=== PATIENT | female | born 1950 | race Caucasian/White ===

== ENCOUNTER → 2020-04-10 15:02 | Outpatient (CLI) | payer MEDICARE, SELFPAY ==
--- NOTE | 2020-04-10 15:10 | VDLE_ITS ---
Reason For Study: pain Procedure LEFT This is a venous duplex using B-mode, color GSV is normal. flow and spectral Doppler. CFV is compressible, spontaneous, phasic, Exam performed in department. competent, and demonstrates normal The exam was abbreviated due to the COVID 19 augmentation. protocol. FV is compressible, spontaneous, phasic, The exam was diagnostic. competent and demonstrates normal A preliminary report was called and/or faxed augmentation. to [facility] clinical desk. POP V is compressible, spontaneous, phasic, competent and demonstrates normal augmentation. T/P Trunk is compressible. PTV is compressible. LT PerV is compressible. Interpretation Summary Deep veins of the left lower extremity are patent and compressible segmentally. There is no evidence of left lower extremity deep vein thrombosis. Valvular competence appears intact within the proximal deep venous system on the left . The left great saphenous vein appears patent and compressible segmentally. Ordering Physician: Thao Warren Performed By: Gagandeep Henson RVRandi
== END ==
PROVIDERS: PCP Family Medicine Geriatric Medicine; Referring Provider Registered Nurse; Visit Provider Registered Nurse
DX: M79.662 Pain in left lower leg (principal)
CPT/HCPCS: 93971

== ENCOUNTER → 2020-10-17 15:02 | Outpatient (CLI) | payer MEDICARE, SELFPAY ==
[2013-12-22 12:25] VITALS: BMI 22.8
[2020-10-17 16:53] LABS: Absolute Lymphocyte Count 1.91 X10^3/uL (0.83-4.51); Absolute Neutrophil Count 3.5 X10^3/uL (2.0-7.7); Basophil# 0.03 X10^3/uL; Basophil% 0.5 % (0-1); Eosinophil# 0.11 X10^3/uL; Eosinophils% 1.8 % (0-5); Hematocrit 37.8 % (37-47); Hemoglobin 12.2 g/dL (12.0-15.0); Lymphocyte # 1.91 X10^3/ul (0.83-4.51); Lymphocyte % 31.6 % (19-41); Mean Corp Hgb Conc 32.3 g/dL (32-36); Mean Corpuscular Hgb 29.8 pg (27.0-32.0); Mean Corpuscular Volume 92.2 fL (81-99); Monocyte# 0.46 X10^3/uL; Monocyte% 7.6 % (0-10); NRBC Flagged by Analyzer 0 % (0-5); Neutrophil # 3.52 X10^3/uL (2.7-7.7); Neutrophil % 58.3 % (47-70); Platelet Count 321 K/mm3 (150-450); RBC Distribution Width CV 12.4 % (11.6-14.6); RBC Distribution Width SD 41.8 fl (35.1-43.9)
[2020-10-17 17:26] LABS: ALB/GLOB Ratio 1.3 RATIO (0.9-2.4); AST(SGOT) 27 U/L (15-37); Alanine Aminotransfer ALT/SGPT 31 U/L (13-56); Albumin, Serum 3.8 g/dL (3.2-5.0); Alkaline Phosphatase 60 U/L (45-117); Anion Gap 5 (5-15); BUN 18 mg/dL (7-18); BUN/Creat Ratio 22.9 RATIO (10-20); Calcium,Total 9.4 mg/dL (8.5-10.1); Chloride 104 mmol/L (98-107); Cholesterol 196 mg/dL (200); Creatinine, Serum 0.78 mg/dL (0.55-1.02); EST Glomerular Filtration Rate 77 mL/min (>60); Est Glom Filt Rate - Afr Amer 93 mL/min (>60); Globulin 2.9 g/dL (2.2-4.2); Glucose 89 mg/dL (74-106); High Density Lipoprotein 92 mg/dL; Potassium 4.1 mmol/L (3.5-5.1); Protein, Total 6.7 g/dL (6.4-8.2); Sodium Level 141 mmol/L (136-145); Thyroid Stim Hormone (TSH) 1.52 uIU/mL (0.358-3.74); Triglycerides 89 mg/dL; Very Low Density Lipoprotein 18 mg/dL (5-40)
[2020-10-18 09:24] LABS: Hepatitis C Antibody Non-Reactive (Nonreactive); Vitamin D,25 Hydroxy 47.1 ng/mL
== END ==
PROVIDERS: PCP Family Medicine Geriatric Medicine; Visit Provider Family Medicine Geriatric Medicine
DX: E55.9 Vitamin D deficiency, unspecified (principal); E78.5 Hyperlipidemia, unspecified; R53.83 Other fatigue; Z13.89 Encounter for screening for other disorder
CPT/HCPCS: 36415; 80053; 80061; 82306; 84443; 85025; 86803

== ENCOUNTER → 2020-10-25 14:54 | Outpatient (CLI) | payer MEDICARE, SELFPAY ==
--- NOTE | 2020-10-25 14:59 | BD_ITS ---
STUDY: DUAL ENERGY X-RAY ABSORPTIOMETRY / DXA REASON FOR EXAM: Female, 70 years old. Z780. The patient is postmenopausal. Loss of height. TECHNIQUE: Bone Mineral Density (BMD) measurements of lumbar spine and bilateral hips were obtained. COMPARISON: None. FINDINGS: Lumbar Spine (L1-L4): g/cm2 (1.069) / T-score (-0.8) / Z-score (0.9) Findings are suggestive of normal bone density with a low fracture risk. Left Femur Total: g/cm2 (0.780) / T-score (-1.8) / Z-score (-0.2) Left Femoral Neck: g/cm2 (0.857) / T-score (-1.3) / Z-score (0.5) Right Femur Total: g/cm2 (0.780) / T-score (-1.8) / Z-score (-0.2) Right Femoral Neck: g/cm2 (0.775) / T-score (-1.9) / Z-score (-0.1) BD/Dexa Bone Density Study IMPRESSION: The patient is considered osteopenic as outlined below according to World [employer] Organization (WHO) criteria with a moderate fracture risk. Reference Information: The T-score is the number of standard deviations above or below the standard which is normal for young adults at their peak bone mineral density. The World Health Organization (WHO) interprets the T-scores as follows: Above -1 Normal bone density Between -1 and -2.5 Osteopenia Equal to / or below -2.5 Osteoporosis As a practical clinical guideline, osteopenia may be graded as follows: Mild -1 through -1.5 Moderate -1.6 through -2.0 Severe -2.1 through -2.4 The Z-score is the number of standard deviations above or below age-matched controls. A Z-score of less than -1.5 would be considered abnormal. References: 1. NIH Osteoporosis and Related Bone Diseases www osteo.org 2. International Society for Clinical Densitometry www iscd.org 3. National Osteoporosis Foundation www nof.org Electronically Signed: Sukumar Bartlett MD at 15:40 EDT , Service support ,
== END ==
PROVIDERS: PCP Family Medicine Geriatric Medicine; Referring Provider Family Medicine Geriatric Medicine; Visit Provider Family Medicine Geriatric Medicine
DX: Z78.0 Asymptomatic menopausal state (principal)
CPT/HCPCS: 77080

== ENCOUNTER → 2020-11-30 13:02 | Outpatient (CLI) | payer MEDICARE, SELFPAY ==
--- NOTE | 2020-11-30 13:07 | CT_ITS ---
STUDY: CT BRAIN WITHOUT CONTRAST REASON FOR EXAM: Female, 70 years old. Possibly hematoma overlying the left forehead. RADIATION DOSAGE (If Supplied By Facility): CTDIvol = ( 44.99 ) mGy, DLP = ( 796.11 ) mGycm TECHNIQUE: Transaxial CT imaging of the brain was performed without administration of intravenous contrast material. Individualized dose optimization techniques were used for this CT. COMPARISON: No relevant priors. FINDINGS: Normal soft tissue structures. 3.6 mm focal rounded bony thickening along the medial aspect of the left frontal bone. This may represent a small osteoma. Normal size ventricles and extra-axial spaces for the patient''s age. Normal white matter tracts of the cerebral hemispheres. Normal basal ganglia and thalami. Normal brainstem. Normal cerebellum. There is no intracranial hemorrhage. There are no findings of an acute ischemic infarction. Normal visualized paranasal sinuses. CT/Brain/Head without Contrast IMPRESSION: 3.6 mm focal rounded bony thickening along the medial aspect of the left frontal bone. This most likely represents a small osteoma. Electronically Signed: Sukumar Bartlett MD at 13:25 EDT , Service support ,
== END ==
PROVIDERS: PCP Family Medicine Geriatric Medicine; Referring Provider Family Medicine Geriatric Medicine; Visit Provider Family Medicine Geriatric Medicine
DX: T14.8XXA Other injury of unspecified body region, initial encounter (principal)
CPT/HCPCS: 70450

== ENCOUNTER → 2021-01-07 13:06 | Outpatient (CLI) | payer MEDICARE, SELFPAY ==
--- NOTE | 2021-01-07 13:07 | ART_ITS ---
Reason For Study: CLAUDICATION Procedure A bilateral lower extremity continuous wave Doppler with analog waveform analysis and ankle brachial indexes. Left Segmental Pressures Left brachial= 107mmHg. Left posterior tibial artery = 153mmHg. Left dorsalis pedis artery = 143mmHg. Left digit = 106 mmHg. The left dorsalis pedis waveforms are triphasic. The left posterior tibial artery waveforms are triphasic. Right Segmental Pressures Right brachial= 113mmHg. Right posterior tibial artery = 137mmHg. Right dorsalis pedis artery = 133mmHg. Right digit = 89 mmHg. The right dorsalis pedis waveforms are triphasic. The right posterior tibial artery waveforms are triphasic. Indices The right ankle brachial index by the posterior tibial artery is 1.21. The right ankle brachial index by the dorsalis pedis is 1.18. The right digital-brachial index is .79. The left ankle brachial index by the posterior tibial artery is 1.35. The left ankle brachial index by the dorsalis pedis is 1.27. The left digital-brachial index is .94. VL/Ankle Brachial Index Interpretation Summary Triphasic Doppler waveforms are noted at ankle level bilaterally. Pulse-volume recordings appear satisfactory at digital level bilaterally. Resting ankle-brachial indices are n ormal bilaterally. Digital-brachial indices are normal bilaterally. There is no evidence of significant arterial occlusive disease in the lower ext remities bilaterally. Ordering Physician: Geovanni Foreman Referring Physician: Geovanni Foreman Chi Performed By: YULIANA CABAN RDCS
== END ==
PROVIDERS: PCP Family Medicine Geriatric Medicine; Referring Provider Family Medicine Geriatric Medicine; Visit Provider Family Medicine Geriatric Medicine
DX: I73.9 Peripheral vascular disease, unspecified (principal)
CPT/HCPCS: 93922

== ENCOUNTER → 2021-02-01 09:44 | Outpatient (CLI) | payer MEDICARE, SELFPAY ==
[2021-02-01 11:54] LABS: Absolute Lymphocyte Count 1.79 X10^3/uL (0.83-4.51); Absolute Neutrophil Count 4.6 X10^3/uL (2.0-7.7); Basophil# 0.05 X10^3/uL; Basophil% 0.7 % (0-1); Eosinophil# 0.19 X10^3/uL; Eosinophils% 2.6 % (0-5); Hematocrit 37.4 % (37-47); Lymphocyte # 1.79 X10^3/ul (0.83-4.51); Lymphocyte % 24.8 % (19-41); Mean Corp Hgb Conc 32.1 g/dL (32-36); Mean Corpuscular Hgb 29.7 pg (27.0-32.0); Mean Corpuscular Volume 92.6 fL (81-99); Mean Platelet Vol. 10.8 fl (6.2-12.0); Monocyte# 0.53 X10^3/uL; Monocyte% 7.3 % (0-10); NRBC Flagged by Analyzer 0 % (0-5); Neutrophil # 4.64 X10^3/uL (2.7-7.7); Neutrophil % 64.2 % (47-70); Platelet Count 292 K/mm3 (150-450); RBC Distribution Width CV 13.1 % (11.6-14.6); RBC Distribution Width SD 44.6 fl (35.1-43.9); Red Blood Count 4.04 M/mm3 (4.2-5.4); White Blood Count 7.2 K/mm3 (4.4-11.0)
[2021-02-01 12:10] LABS: Vitamin D,25 Hydroxy 40.8 ng/mL
[2021-02-01 12:17] LABS: AST(SGOT) 16 U/L (15-37); Alanine Aminotransfer ALT/SGPT 23 U/L (13-56); Albumin, Serum 3.5 g/dL (3.2-5.0); Alkaline Phosphatase 65 U/L (45-117); Anion Gap 1 (5-15); BUN 14 mg/dL (7-18); BUN/Creat Ratio 18.2 RATIO (10-20); Calcium,Total 9.3 mg/dL (8.5-10.1); Chloride 107 mmol/L (98-107); Cholesterol 229 mg/dL (200); Creatinine, Serum 0.77 mg/dL (0.55-1.02); EST Glomerular Filtration Rate 78 mL/min (>60); Est Glom Filt Rate - Afr Amer 95 mL/min (>60); Globulin 3.5 g/dL (2.2-4.2); Glucose 90 mg/dL (74-106); High Density Lipoprotein 82 mg/dL; Sodium Level 139 mmol/L (136-145); Thyroid Stim Hormone (TSH) 1.29 uIU/mL (0.358-3.74); Triglycerides 97 mg/dL; Very Low Density Lipoprotein 19 mg/dL (5-40)
== END ==
PROVIDERS: PCP Family Medicine Geriatric Medicine; Visit Provider Family Medicine Geriatric Medicine
DX: E78.5 Hyperlipidemia, unspecified (principal); E55.9 Vitamin D deficiency, unspecified; R53.83 Other fatigue
CPT/HCPCS: 36415; 80053; 80061; 82306; 84443; 85025

== ENCOUNTER 2021-03-22 10:00 | Outpatient (RCR) | payer MEDICARE, SELFPAY ==
--- NOTE | 2021-03-18 10:43 | HP.PTEVAL ---
Patient's Visit Information TARIK DUNHAM is a 71 year old F referred to Physical Therapy by Dr. Henri Amaya DO with a diagnosis of low back pain, pain in R hip. Date of Evaluation: 03/18/21 Physical Therapist: Lucille Jang - Visit Plan Frequency: 2x /Week Duration: 5 wks Plan: Begin core and LE strengthening/stretching program with exercise progression as tolerated. Pt would benefit from skilled physical therapy to monitor ther ex program and modify/advance as needed for optimal results. Therapy may include ther ex, ther act, gait training, and manual therapy. - Subjective Pt had pain behind R knee for about one month; had imaging done and knees are not the issues; was told her back is causing her pain. Pt has DDD (diagnosed several years ago), has started taking Celebrex and feels a bit better. Pt enjoys walking, but reports that her legs just feel weak and unstable. Reports that when she is walking, she will sometimes hold on to her or something nearby because she just feels off balance. She reports that she needs to get both hips replaced, but she is not quite ready for that. Her left hip is worse. Has numbness from knee to foot on R ever since a foot surgery 1.5 years ago. Reports that she gets leg cramps on both sides that wake her up at night or when she has her legs up relaxing. Pt feels like she has no strength in her legs when she is navigating stairs or trying to get up from a squat. Uses the rail and goes slowly using her stairs at home (both to second floor and to basement). With the numbness in the foot, she is very conscience of trying to be careful not to fall. Pt would like to increase her physical activity and feels limited by weakness in the legs. PAIN: at best 0/10. at worst: 8/10 when not taking Celebrex. Pt denies N&T down the legs but does have pain down the back of the legs occasionally. - Pain Back/R leg Pain Intensity (Out of 10): 0 Pain Intensity Range: 0, 8 - Objective Posture: forward head, slightly kyphotic. Palpation: Tenderness over lower Lspine, sacrum, and iliac crests. Tenderness to touch over piriformis muscle. Trunk ROM: Forward flexion: touches toes, Extension slightly limited, reaches knee with lateral sidebend on both sides, L>R rotation, pt denies pain at end range, but feels a stretch at all EROM. LE ROM: WFL; tight piriformis and HS bilaterally. MMT: R&L hip flexion 3+/5, L&R hip abd 3+/5 *pain from OA*, L&R hip extension 3/5, Adduction 4/5. Knees grossly 4+/5. Core: poor. Gait: knee valgus, pt not able to totally walk straight and right leg will occasionally almost give out. She is not sure if this is because she is weak or because she can't feel her R foot. - Balance/Special Test Scores Oswestry Low Back Score: 13 - Goals Goal 1:: Pt to be independent with HEP Goal Time Frame: 2-4 Weeks Goal 2:: Pt to report increased LE and core strength as indicated by ability to come floor to stand with decreased difficulty. Goal Time Frame: 4-6 Weeks Goal 3:: Pt to ambulate at least 1 mile without increase in low back symptoms, indicating increased strength and endurance. Goal Time Frame: 4-6 Weeks Goal 4:: Pt to be able to stand for >15 minutes without increase in low back/LE symptoms, indicating increased strength and endurance. - Rehabilitation Potential Physical Therapy Diagnosis: Pt shows s/s consistent with low back pain resulting from DDD and pain in hips secondary to OA. Pt demo activity limitations and decreased participation in activities. Would benefit from core and LE strengthening to alleviate symptoms and increase mobility. Rehabilitation Potential: Good - Anticipated Interventions Patient/Client Instruction: Educate patient on: Condition, Plan of Care Therapeutic Exercise to Include: Strength training, Endurance training, Balance training, Coordination, Body mechanics, Postural training, Gait and locomotor training, Dynamic Lumbar Stabilization Manual Therapy Techniques to Include: Mobilization For the Purpose of:: To decrease pain Thank you for the opportunity to evaluate your patient. For Medicare and Medicare HMO plans, please review the plan of care and approve it. It will need to be FAXED BACK to us at [phone] for Medicare purposes. For Medicare only, by signing this I certify the plan of care. Please let me know if there are questions or concerns regarding this plan of care. Physician Signature: Date:
--- NOTE | 2021-07-01 10:13 | HP.PT.NRP ---
TARIK DUNHAM was seen in my office for initial evaluation on 03/18/21. The following Plan of Care was established for this patient: Initial Frequency: 2x /Week Initial Duration: 5 wks Patient/Client Instruction: Educate patient on: Condition, Plan of Care Therapeutic Exercise to Include: Strength training, Endurance training, Balance training, Coordination, Body mechanics, Postural training, Gait and locomotor training, Dynamic Lumbar Stabilization Manual Therapy Techniques to Include: Mobilization For the Purpose of:: To decrease pain This patient was last seen in our office 03/22/21. Pertinent comments regarding their Physical therapy will appear below: Pt seen 2 visits of POc then called adn asked to be d/cd as he was going to go another route. At this point I will be discontinuing this patient from physical therapy. I would be happy to see this patient again in the future if found appropriate by the physician. Thank you! Fazal Parrish, DPT, OCS, CSCS Balance/Gait/Functional tests - Balance/Special Test Scores Oswestry Low Back Score: 13
== END 2021-03-22 19:00 | disposition home or self-care (01) ==
LOC: PT 10:00
PROVIDERS: PCP Family Medicine Geriatric Medicine; Referring Provider Student in an Organized Health Care Education/Training Program; Visit Provider Student in an Organized Health Care Education/Training Program
DX: M54.50 Low back pain, unspecified (principal); M25.551 Pain in right hip
CPT/HCPCS: 97110; 97161

== ENCOUNTER 2021-06-18 13:43 | Outpatient (CLI) | payer MEDICARE, SELFPAY ==
[2021-06-18 14:11] LABS: Absolute Lymphocyte Count 2.33 X10^3/uL (0.83-4.51); Absolute Neutrophil Count 3.6 X10^3/uL (2.0-7.7); Basophil# 0.05 X10^3/uL; Basophil% 0.8 % (0-1); Hematocrit 36.3 % (37-47); Lymphocyte # 2.33 X10^3/ul (0.83-4.51); Lymphocyte % 35.2 % (19-41); Mean Corp Hgb Conc 33.1 g/dL (32-36); Mean Corpuscular Hgb 29.8 pg (27.0-32.0); Mean Corpuscular Volume 90.1 fL (81-99); Mean Platelet Vol. 9.9 fl (6.2-12.0); Monocyte# 0.45 X10^3/uL; Monocyte% 6.8 % (0-10); NRBC Flagged by Analyzer 0 % (0-5); Neutrophil # 3.57 X10^3/uL (2.7-7.7); Neutrophil % 53.9 % (47-70); Platelet Count 298 K/mm3 (150-450); RBC Distribution Width CV 12.9 % (11.6-14.6); RBC Distribution Width SD 42.6 fl (35.1-43.9); Red Blood Count 4.03 M/mm3 (4.2-5.4); White Blood Count 6.6 K/mm3 (4.4-11.0)
[2021-06-18 14:44] LABS: Vitamin D,25 Hydroxy 42.5 ng/mL
[2021-06-18 14:49] LABS: ALB/GLOB Ratio 1.1 RATIO (0.9-2.4); AST(SGOT) 20 U/L (15-37); Alanine Aminotransfer ALT/SGPT 28 U/L (13-56); Albumin, Serum 3.7 g/dL (3.2-5.0); Alkaline Phosphatase 70 U/L (45-117); BUN 23 mg/dL (7-18); BUN/Creat Ratio 30.7 RATIO (10-20); Calcium,Total 9.2 mg/dL (8.5-10.1); Chloride 102 mmol/L (98-107); Cholesterol 266 mg/dL (200); Creatinine, Serum 0.75 mg/dL (0.55-1.02); EST Glomerular Filtration Rate 81 mL/min (>60); Est Glom Filt Rate - Afr Amer 98 mL/min (>60); Globulin 3.3 g/dL (2.2-4.2); Glucose 99 mg/dL (74-106); Sodium Level 139 mmol/L (136-145); Triglycerides 154 mg/dL
[2021-06-18 14:50] LABS: Anion Gap 7 (5-15); High Density Lipoprotein 68 mg/dL; Very Low Density Lipoprotein 31 mg/dL (5-40)
== END 2021-06-18 23:59 | disposition short-term general hospital (02) ==
LOC: POLAB3 13:44
PROVIDERS: PCP Family Medicine Geriatric Medicine; Visit Provider Family Medicine Geriatric Medicine
DX: E78.5 Hyperlipidemia, unspecified (principal); E55.9 Vitamin D deficiency, unspecified; R53.83 Other fatigue
CPT/HCPCS: 36415; 80053; 80061; 82306; 84443; 85025

== ENCOUNTER 2021-08-14 13:20 | Outpatient (CLI) | payer MEDICARE, SELFPAY ==
[2021-08-14 16:44] LABS: Thyroid Stim Hormone (TSH) 2.02 uIU/mL (0.358-3.74)
== END 2021-08-14 23:59 | disposition home or self-care (01) ==
LOC: LAB.FUTURE 13:20 → POLAB3 13:24
PROVIDERS: PCP Family Medicine Geriatric Medicine; Visit Provider Family Medicine Geriatric Medicine
DX: E03.9 Hypothyroidism, unspecified (principal)
CPT/HCPCS: 36415; 84443

== ENCOUNTER 2021-09-12 13:01 | Outpatient (CLI) | payer MEDICARE, SELFPAY ==
--- NOTE | 2021-09-12 13:45 | MRI_ITS ---
STUDY: MRI LUMBAR SPINE WITHOUT CONTRAST REASON FOR EXAM: Female, 71 years old. LBP TECHNIQUE: Standardized fat and water weighted pulse sequences were obtained in the sagittal and axial planes. COMPARISON: Plain films FINDINGS: The usual lordotic curvature of the lumbar spine is well maintained. The conus of the cord is at T12-L1, normal position. There is no pillo spinal stenosis. There is diffuse decreased T2 signal intensity of disc and at least mild disc space narrowing and annular disc bulge at most levels. At L2-3 there is normal disc height, decreased T2 signal intensity and broadbase right posterior lateral disc protrusion mildly narrowing the right neural foramen. At L3-L4 there are mild Modic type endplate degenerative changes around asymmetrically decreased disc height, greater on the left, and moderate annular disc bulge, mild lateral and posterior lateral broadbase disc protrusion, and mild bilateral neural foraminal stenosis. Also facet joint hypertrophic changes contributing to neural foraminal stenosis. At L4-5 the disc height is normal. Mild narrowing of the neural foramen. At L5-S1 there is moderate disc space narrowing. Mild Modic type endplate degenerative changes bilaterally. Normal aortoiliac caliber. Presumed left parapelvic renal cysts are kidney is not fully included. MRI/Spine Lumbar (Routine) IMPRESSION: No specific acute findings. No fracture or pillo spinal stenosis. Modic type endplate degenerative changes and disc bulges and mild protrusions. Presumed left renal parapelvic cysts, not fully included. Electronically Signed: Vita Hudson MD at 20:58 EDT ,
== END 2021-09-12 23:59 | disposition home or self-care (01) ==
PROVIDERS: PCP Family Medicine Geriatric Medicine; Referring Provider Family Medicine Geriatric Medicine; Visit Provider Family Medicine Geriatric Medicine
DX: M54.59 Other low back pain (principal)
CPT/HCPCS: 72148

== ENCOUNTER 2021-10-01 11:14 | Outpatient (CLI) | payer MEDICARE, SELFPAY ==
--- NOTE | 2021-10-01 11:25 | VDUE_ITS ---
Reason For Study: edema Right Proximal Right jugular vein is spontaneous, widely patent, phasic, with no intraluminal echogenicity noted. Right subclavian vein is spontaneous, widely patent, phasic, with no intraluminal echogenicity noted. Right Lower Arm Right radial vein is compressible. Right ulnar vein is compressible. Right Arm Right axillary vein is spontaneous, patent, phasic, competent, compressible and demonstrates augmentation. Right brachial vein is compressible. Right cephalic vein is compressible. Right basilic vein is compressible. Prelim faxed to Dr. Foreman. VL/Venous Duplex US, Unilateral Interpretation Summary Deep veins of the right upper extremity are patent and compressible segmentally . There is no evidence of deep vein thrombosis. The superficial veins of the right upper extr emity, the basilic and cephalic veins, are patent and compressible. There is no evidence of right upper extremity superficial thrombophlebitis involving the veins imaged. Ordering Physician: Geovanni Foreman Performed By: Gagandeep Henson RVT ?
--- NOTE | 2021-10-01 11:44 | RAD_ITS ---
STUDY: X-RAY - RIGHT WRIST REASON FOR EXAM: Female, 71 years old. Wrist pain. TECHNIQUE: 3 view(s) of the wrist were obtained. COMPARISON: None. FINDINGS: Osteopenia. Mild arthrosis of the radiocarpal articulation Mild arthrosis of the radial ulnar articulation. Moderate arthrosis of the radial carpal row. Moderate to severe arthrosis of the first CMC joint. Mild to moderate arthrosis of the visualized MCP and IP joints. The soft tissue structures are unremarkable. RAD/Wrist min 3 Views IMPRESSION: Osteopenia with osteoarthritic changes as described. No acute osseous abnormality or erosive changes. Electronically Signed: Harvinder Cabral MD at 12:21 EDT ,
== END 2021-10-01 23:59 | disposition home or self-care (01) ==
LOC: CVS 11:16
PROVIDERS: PCP Family Medicine Geriatric Medicine; Referring Provider Family Medicine Geriatric Medicine; Visit Provider Family Medicine Geriatric Medicine
DX: M25.531 Pain in right wrist (principal); R60.0 Localized edema
CPT/HCPCS: 73110; 93971

== ENCOUNTER → 2021-11-12 | Outpatient (CLI) | payer MEDICARE, SELFPAY ==
[2021-11-13 22:07] LABS: Thyroid Peroxidase AB < 8 IU/mL (0-34)
[2021-11-13 22:29] LABS: Thyroglobulin Antibody < 1.0 IU/mL (0.0-0.9)
== END | disposition home or self-care (01) ==
LOC: BIMLAB 11:23
PROVIDERS: PCP Family Medicine Geriatric Medicine; Visit Provider Internal Medicine
DX: E03.9 Hypothyroidism, unspecified (principal)
CPT/HCPCS: 36415; 86376; 86800

== ENCOUNTER → 2021-11-21 | Outpatient (CLI) | payer MEDICARE, SELFPAY ==
--- NOTE | 2021-11-21 16:00 | RAD_ITS ---
STUDY: XR Chest 2 Views 11/21/2021 3:58 PM REASON FOR EXAM: Female, 71 years old. CHEST PAIN PRE-OP COMPARISON: None TECHNIQUE: XR Chest 2 Views FINDINGS: There is no demonstrated pleural abnormality. Normal heart size. Normal mediastinum. Normal vee. Prominent appearing increased interstitial lung markings. Normal visualized pulmonary arteries. There is atherosclerotic calcification of the aortic arch with tortuosity. There are diffuse degenerative changes of the visualized thoracic spine. There is degenerative osteoarthritis of the bilateral shoulders. There is no demonstrated abnormality of the visualized soft tissue structures of the upper abdomen. RAD/Chest PA and Lateral IMPRESSION: There are no acute findings. Electronically Signed: Yovanny Zamora MD at 22:09 EDT ,
[2021-11-21 17:02] LABS: Hemoglobin 12.1 g/dL (12.0-15.0); Mean Corp Hgb Conc 33.6 g/dL (32-36); Mean Corpuscular Hgb 30.9 pg (27.0-32.0); Mean Corpuscular Volume 91.8 fL (81-99); Mean Platelet Vol. 10.1 fl (6.2-12.0); Platelet Count 308 K/mm3 (150-450); RBC Distribution Width CV 12.5 % (11.6-14.6); RBC Distribution Width SD 41.9 fl (35.1-43.9); Red Blood Count 3.92 M/mm3 (4.2-5.4); White Blood Count 6.5 K/mm3 (4.4-11.0)
[2021-11-21 17:24] LABS: Anion Gap 5 (5-15); BUN 15 mg/dL (7-18); BUN/Creat Ratio 20.1 RATIO (10-20); Calcium,Total 9.6 mg/dL (8.5-10.1); Chloride 104 mmol/L (98-107); Creatinine, Serum 0.75 mg/dL (0.55-1.02); EST Glomerular Filtration Rate 81 mL/min (>60); Est Glom Filt Rate - Afr Amer 98 mL/min (>60); Glucose 89 mg/dL (74-106); Potassium 4.8 mmol/L (3.5-5.1); Sodium Level 137 mmol/L (136-145)
== END | disposition home or self-care (01) ==
PROVIDERS: PCP Internal Medicine; Referring Provider Student in an Organized Health Care Education/Training Program; Visit Provider Student in an Organized Health Care Education/Training Program
DX: Z01.818 Encounter for other preprocedural examination (principal); Z01.811 Encounter for preprocedural respiratory examination
CPT/HCPCS: 36415; 71046; 80048; 85027

== ENCOUNTER → 2021-11-25 | Outpatient (CLI) | payer MEDICARE, SELFPAY ==
--- NOTE | 2021-11-25 13:57 | US_ITS ---
EXAM: US SOFT TISSUES HEAD AND NECK, THYROID CLINICAL INDICATION: Soft tissue fullness left thyroid TECHNIQUE: Greyscale and color doppler imaging was performed of the thyroid gland. This report was created using [employer] report generation technology. COMPARISON: None. FINDINGS: LEFT THYROID LOBE: Left thyroid lobe measures 3.6 x 1.2 x 1.0 cm. 6 mm left thyroid nodule This nodule is mixed cystic and solid, hyperechoic or isoechoic, [id number], smoothly marginated and contains no echogenic foci. This nodule is not suspicious and no FNA or follow-up is necessary. RIGHT THYROID LOBE: Right thyroid lobe measures 4.8 x 1.7 x 1.8 cm. 5.5 m right thyroid nodule This nodule is mixed cystic and solid, hyperechoic or isoechoic, [id number], smoothly marginated and contains no echogenic foci. This nodule is not suspicious and no FNA or follow-up is necessary. 7 mm solid right thyroid lobe nodule. This nodule is solid or almost completely solid, hyperechoic or isoechoic, [id number], smoothly marginated and contains no echogenic foci. This nodule is mildly suspicious but no FNA or follow-up is necessary given the small size of this nodule. ISTHMUS: 11 x 4 mm solid nodule noted within the isthmus. This nodule is solid or almost completely solid, hyperechoic or isoechoic, [id number], smoothly marginated and contains no echogenic foci. This nodule is mildly suspicious but no FNA or follow-up is necessary given the small size of this nodule. US/Thyroid IMPRESSION: Bilateral thyroid nodules. Electronically Signed: Nate Mosqueda MD at 15:15 EDT ,
== END | disposition home or self-care (01) ==
LOC: US 13:57
PROVIDERS: PCP Internal Medicine; Referring Provider Internal Medicine; Visit Provider Internal Medicine
DX: E03.9 Hypothyroidism, unspecified (principal); R22.1 Localized swelling, mass and lump, neck
CPT/HCPCS: 76536

== ENCOUNTER → 2021-12-03 | Outpatient (CLI) | payer MEDICARE, SELFPAY ==
[2021-12-03 10:28] LABS: T4 Total, Thyroxin 9.1 ug/dL (4.8-13.9); Thyroid Stim Hormone (TSH) 3.44 uIU/mL (0.358-3.74)
[2021-12-03 10:35] LABS: T3 Total - Triiodothyronine 1.19 ng/mL (0.6-1.81)
== END | disposition home or self-care (01) ==
LOC: PAVLAB 09:29
PROVIDERS: PCP Internal Medicine; Referring Provider Surgery; Visit Provider Surgery
DX: E03.9 Hypothyroidism, unspecified (principal)
CPT/HCPCS: 36415; 84436; 84443; 84480

== ENCOUNTER → 2021-12-17 | Outpatient (CLI) | payer MEDICARE, SELFPAY ==
--- NOTE | 2021-12-17 10:04 | US_ITS ---
EXAM: US SOFT TISSUES OF THE NECK CLINICAL INDICATION: left neck mass TECHNIQUE: Real-time ultrasound scan of the soft tissues of the neck with image documentation. This report was created using [employer] report generation technology. COMPARISON: None. FINDINGS: See Impression. US/Head/Neck Soft Tissue IMPRESSION: 1. Lymph nodes are identified in the area of interest. More superiorly there is a 2.1 x 1.2 x 0.4 cm lymph node. The more caudal smaller lymph node measures 0.6 cm in maximum dimension. Both appear to be architecturally normal and are most likely benign although potentially reactive. 2. No other significant pathology. Electronically Signed: Marcelo Sanchez MD at 1:50 EDT ,
== END | disposition home or self-care (01) ==
PROVIDERS: PCP Internal Medicine; Visit Provider Surgery
DX: R22.1 Localized swelling, mass and lump, neck (principal)
CPT/HCPCS: 76536

== ENCOUNTER 2022-01-13 14:30 | Outpatient (RCR) | payer MEDICARE, SELFPAY | END 2022-01-13 19:00 | disposition home or self-care (01) | LOC: OT 14:30 | PROVIDERS: PCP Internal Medicine; Referring Provider Student in an Organized Health Care Education/Training Program; Visit Provider Student in an Organized Health Care Education/Training Program | DX: S66.2 Injury of extensor muscle, fascia and tendon of thumb at wrist and hand level (principal) | CPT/HCPCS: 97110; 97140; 97165 ==

== ENCOUNTER → 2022-01-29 | Outpatient (CLI) | payer MEDICARE, SELFPAY ==
[2022-01-29 11:16] LABS: Absolute Lymphocyte Count 2.12 X10^3/uL (0.83-4.51); Absolute Neutrophil Count 2.5 X10^3/uL (2.0-7.7); Basophil# 0.04 X10^3/uL; Basophil% 0.8 % (0-1); Eosinophil# 0.12 X10^3/uL; Eosinophils% 2.3 % (0-5); Hematocrit 37.4 % (37-47); Hemoglobin 12.3 g/dL (12.0-15.0); Lymphocyte # 2.12 X10^3/ul (0.83-4.51); Lymphocyte % 41.2 % (19-41); Mean Corp Hgb Conc 32.9 g/dL (32-36); Mean Corpuscular Hgb 30.2 pg (27.0-32.0); Mean Corpuscular Volume 91.9 fL (81-99); Monocyte# 0.41 X10^3/uL; NRBC Flagged by Analyzer 0 % (0-5); Neutrophil # 2.45 X10^3/uL (2.7-7.7); Neutrophil % 47.5 % (47-70); Platelet Count 288 K/mm3 (150-450); RBC Distribution Width CV 12.9 % (11.6-14.6); Red Blood Count 4.07 M/mm3 (4.2-5.4); White Blood Count 5.2 K/mm3 (4.4-11.0)
[2022-01-29 11:46] LABS: ALB/GLOB Ratio 1.2 RATIO (0.9-2.4); AST(SGOT) 20 U/L (15-37); Alanine Aminotransfer ALT/SGPT 25 U/L (13-56); Albumin, Serum 3.5 g/dL (3.2-5.0); Alkaline Phosphatase 56 U/L (45-117); Anion Gap 6 (5-15); BUN 15 mg/dL (7-18); BUN/Creat Ratio 17.9 RATIO (10-20); Calcium,Total 9.1 mg/dL (8.5-10.1); Chloride 107 mmol/L (98-107); Cholesterol 248 mg/dL (200); Creatinine, Serum 0.84 mg/dL (0.55-1.02); EST Glomerular Filtration Rate 71 mL/min (>60); Est Glom Filt Rate - Afr Amer 86 mL/min (>60); Free T3 2.7 pg/mL (2.18-3.98); Glucose 99 mg/dL (74-106); High Density Lipoprotein 72 mg/dL; Potassium 4.5 mmol/L (3.5-5.1); Protein, Total 6.5 g/dL (6.4-8.2); Sodium Level 142 mmol/L (136-145); T4 Free Direct 0.92 ng/dL (0.76-1.46); Triglycerides 103 mg/dL; Very Low Density Lipoprotein 21 mg/dL (5-40)
== END | disposition home or self-care (01) ==
PROVIDERS: PCP Internal Medicine
DX: Z01.818 Encounter for other preprocedural examination (principal); E03.9 Hypothyroidism, unspecified; J30.2 Other seasonal allergic rhinitis
CPT/HCPCS: 36415; 80053; 80061; 84439; 84443; 84481; 85025

== ENCOUNTER 2022-04-15 10:00 | Outpatient (RCR) | payer MEDICARE, SELFPAY ==
--- NOTE | 2022-04-02 09:52 | HP.OTEVAL ---
Patient's Visit Information TARIK DUNHAM is a 72 year old F, referred to Occupational Therapy by Dr. Henri Amaya DO, with a diagnosis of right hand spontaneous rupture of extensor tendon. Date of Evaluation: 04/02/22 Occupational Therapist: Zoey Rush, OTR/Sergei, CHT - Subjective This 72 year old female was seen for OT eval. with this spontaneous rupture of extensor tendon right hand with repair in November of 2021. pt states she is happy with repair but pt states her hand feels weak and feels her coordination is also slower along with tingling in pt IF and MF. pt would like to know what more she can do with her recovery to decrease shakiness of right UE with ADLs and IADLs. - ADLs Kitchen: Open jars, Open bottle caps Miscellaneous: Open medication bottle, Handle money (change), Write, Shuffle cards - Pain right hand 2 Pain Intensity Range: 2 - ROM Wrist: 45/65 left 60/60 CMC: right ext 30* flex 20* MP: right ext -20* flex 30* IP: right ext-15 flex 30* - Strength Apple Sorter: right 30# left 37# Lateral Pinch: right 4# left 6# Tripod Pinch: right unable left 4# - Sensation Thumb: right 3.22 left2.83 Index: right 3.22 left2.83 Middle: right 3.33 left2.83 Ring: right 2.83 left2.83 Little: right 2.83 left2.83 - Quick DASH-Disab of Arm,Shoulder& Hand Quick DASH Score: 50.0000 - Goals Goal:Apple Sorter/Pinch strength at least 75% of unaffected hand: Yes Goal:Full use of affected hand in daily activities including: Yes Comment: Home strengthening program Other Goal: Pt will demo understanding of participation of UB HEP to increase pts general strength to decrease assistance from others with ADLs and IADLS. 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 Pt would benefit from skilled OT services every other week for 4 weeks to ensure a HEP for pt to reach maximal rehab potential. Today therapist ed. pt on right UE strengthening HEP of shoulder stabilization, forearm biceps/tric. sup/pron, wrist flex/ext followed with tripod, and lateral pinch to improve pts functional strength. pt was given handout demo understanding of ex. and agree to return in two weeks to ensure gains. pt demo understanding and agree to POC. Rehabilitation Potential: Good - Anticipated Interventions Strengthening, Fine Motor Coord/Saeid, Home Program - Visit Plan Frequency: Every Other Week Duration: 6 Weeks TEXT: Thank you for the opportunity to evaluate your patient. For Medicare and Medicare HMO plans, please review the plan of care and approve it. It will need to be FAXED BACK to us at [phone] for Medicare purposes. Please let me know if there are questions or concerns regarding this plan of care. Physician Signature: Date:
--- NOTE | 2022-07-03 13:59 | HP.OT.NRP ---
TARIK DUNHAM was seen in my office for initial evaluation on 04/02/22. The following Plan of Care was established for this patient: Initial Frequency: Every Other Week Initial Duration: 6 Weeks Anticipated Interventions: Strengthening, Fine Motor Coord/Saeid, Home Program This patient was last seen in our office 04/15/22. Pertinent comments regarding their Occupational therapy will appear below: pt was seen for OT eval and 1 tx session. At this time no further apts. have been scheduled and due to time lapse of greater than 30 days of services pt is d/c. At this point I will be discontinuing this patient from occupational therapy. I would be happy to see this patient again in the future if found appropriate by the physician. Thank you! Zoey Rush, OTR/L, CHT
== END 2022-04-15 19:00 | disposition home or self-care (01) ==
LOC: OT 10:00
PROVIDERS: PCP Internal Medicine; Referring Provider Student in an Organized Health Care Education/Training Program; Visit Provider Student in an Organized Health Care Education/Training Program
DX: M66.241 Spontaneous rupture of extensor tendons, right hand (principal)
CPT/HCPCS: 97035; 97110; 97166; 97530

== ENCOUNTER 2022-08-25 14:00 | Outpatient (RCR) | payer MEDICARE, SELFPAY ==
--- NOTE | 2022-07-10 10:58 | HP.PTEVAL ---
Patient's Visit Information TARIK DUNHAM is a 72 year old F referred to Physical Therapy by Dr. Franki Irvin MD with a diagnosis of RSD. Date of Evaluation: 07/10/22 Physical Therapist: WATSON Meneses - Visit Plan Frequency: 2x /Week Duration: 4 Weeks Plan: This is a nerve injury from 3 years ago... pt has a khushi in her R big toe. 2X/ week for 4 weeks for R gastroc foam rolling, stretching, strengthening of the R foot and ankle (including intrinsic muscles of the foot), gait training (pt has not toe push off), balance activities with HEP. HEP: standing heel and toe raises, gastroc towel stretch, toe crunches - Subjective Pt had a toe surgery on the R and they gave her a nerve block in her knee and she has had nerve damage since and it has been 3 years. She has been to [facility] twice and her R foot is atrohied and they gave her a brace and that seems to help the pain. He feels that she is losing her muscle strength and wants her to do therapy to strengthen it. Her balance is ok. She is really better with the brace on and walks better with it. Her knee no longer hurts with the brace on either. She used to trip on the R foot but has not lately. Her R foot kind of dragged a little bit. She did do some therapy but did not like it. She has a lot of nerve pain at night but does not notice it more at night. Stairs she does stairs two feet to a stair with a railing. - Pain R foot Pain Intensity (Out of 10): 6 Comment: more tingling - Objective Gait: No R great toe push off (great toe does not touch the ground), more steppage gait without the brace. Pt will bring in the brace next visit. LE MMT: R knee ext 23.9 and L knee ext 25.6. R knee flex 11.2 and L 12.9. Observation: L Ankle AROM: 4, 45, 26, 9. R Ankle AROM: -2 degrees DF, 45, 9 21. R ankle strength: R DF 4-/5 R PF 4/5, R INV and EV 3+/5. L ankle strength: L DF, PF, INV and EV 4/5. Palpation: tender along the R gastroc for muscle tension.. increase tightness of R gastroc and soleus. R ankle girth med to lat mal 20.5, Fig 8 40.5. L ankle girth med to lat mal 23, Fig 8 49.4. R SLB 5 sec and L 15 sec. Standing heel and toe raises: able to do X 10. Pt is unable to do R SL heel and toe raises but can do it on the L. FGA: 15 (struggles with heel to toe, walking BW, walking fast for sure and stairs). R intrinsic muscles of the foot are weak. Unable to curl a towel with R great toe or any of the toes on the R. - Balance/Special Test Scores Functional Gait Assessment Score: 15 % Disability: 50.0000 Lower Extremity Functional Score: 41 - Goals Goal 1:: I HEP Goal Time Frame: 4-6 Weeks Goal 2:: Increase Intrinsic muscles of the foot to be able to complete big toe and all toe towel curl. Goal Time Frame: 4-6 Weeks Goal 3:: Be able to SLB X 15 seconds on the R Goal Time Frame: 4-6 Weeks Goal 4:: Be able to walk with more of a heel to toe gait pattern and toe push off Goal Time Frame: 4-6 Weeks Goal 5:: Increase balance (FGA at time of eval was 15) by 4 points to decrease fall risk Goal Time Frame: 4-6 Weeks Goal 6:: Increase R ankle AROM (at time of the eval: L Ankle AROM: 4, 45, 26, 9. R Ankle AROM: -2 degrees DF, 45, 9 21). Goal Time Frame: 4-6 Weeks - Rehabilitation Potential Rehabilitation Potential: Good - Anticipated Interventions Patient/Client Instruction: Educate patient on: Condition, Plan of Care For the Purpose of:: To decrease pain, To increase ROM, To improve nutrient delivery to tissue, To improve muscle performance and motor function, To improve ability to perform ADL's, To increase tolerance to activity/condition/position, To improve performance and independence with ADL's, To improve ability of physical actions for home/community/work/leisure, To improve gait and locomotor functions, To improve health of tissue, To decrease soft tissue restriction, To increase flexibility/ROM, To improve balance, To improve safety with gait Therapeutic Exercise to Include: Strength training, Endurance training, Balance training, Postural training, Flexibilty training, Gait and locomotor training, Neuromotor development, Passive ROM, Active ROM For the Purpose of:: To decrease pain, To increase ROM, To improve nutrient delivery to tissue, To improve muscle performance and motor function, To improve ability to perform ADL's, To increase tolerance to activity/condition/position, To improve performance and independence with ADL's, To decrease level of supervision to perform tasks, To improve ability of physical actions for home/community/work/leisure, To improve gait and locomotor functions, To improve health of tissue, To decrease soft tissue restriction, To increase flexibility/ROM, To improve balance, To improve safety with gait Functional Training to Include: Gait training For the Purpose of:: To improve gait and locomotor functions, To increase flexibility/ROM, To improve balance, To improve safety with gait Manual Therapy Techniques to Include: Mobilization, Passive ROM, Soft tissue mobilization For the Purpose of:: To increase ROM, To improve nutrient delivery to tissue, To improve muscle performance and motor function, To increase tolerance to activity/condition/position, To improve performance and independence with ADL's, To decrease level of supervision to perform tasks, To improve gait and locomotor functions, To improve health of tissue, To decrease soft tissue restriction, To increase flexibility/ROM, To improve endurance, To improve balance, To improve safety with gait Thank you for the opportunity to evaluate your patient. For Medicare and Medicare HMO plans, please review the plan of care and approve it. It will need to be FAXED BACK to us at [phone] for Medicare purposes. For Medicare only, by signing this I certify the plan of care. Please let me know if there are questions or concerns regarding this plan of care. Physician Signature: Date:
--- NOTE | 2022-08-13 11:25 | HP.PTREVAL_ITS ---
Dr. Franki Irvin MD, It has been my pleasure to treat TARIK DUNHAM over the last 9 visits for RSD. Please see the progress note below for an update on the physical therapy plan of care! Subjective: She def feels better with stretching and still feels weak on her R side. The R foot does not feel any better. She does not have to strength in that R foot. She took Tylenol this morning and feels better. Objective/Function: R Ankle AROM: 6degrees DF, 48, 9 43). R SLB 12 sec. Gait: walks with decrease stance on the R LE and has increased weakness on the R LE. FGA: 18. Sit to stand: she takes her L leg behind her so that that R leg does not have to work as hard.... Stairs: pt has increase in valgus of the R knee when ascending and descending the stairs. Plan Plan: This is a nerve injury from 3 years ago... pt has a khushi in her R big toe. Continue 1X/ week for 3 weeks for R gastroc foam rolling, stretching, strengthening of the R foot and ankle (including intrinsic muscles of the foot), gait training (pt has not toe push off), balance activities with HEP and core/R hip strength. HEP: standing heel and toe raises, gastroc towel stretch, toe crunches Balance/Gait/Functional tests - Balance/Special Test Scores Functional Gait Assessment Score: 18 % Disability: 40.0000 Lower Extremity Functional Score: 41 Goals Goal 1:: I HEP Goal Time Frame: 4-6 Weeks Goal Progress: Goal Met Goal 2:: Increase Intrinsic muscles of the foot to be able to complete big toe and all toe towel curl. Goal Time Frame: 4-6 Weeks Goal Progress: Progressing Goal 3:: Be able to SLB X 15 seconds on the R Goal Time Frame: 4-6 Weeks Goal Progress: Progressing Goal 4:: Be able to walk with more of a heel to toe gait pattern and toe push off Goal Time Frame: 4-6 Weeks Goal Progress: Progressing Goal 5:: Increase balance (FGA at time of eval was 15) by 4 points to decrease fall risk Goal Time Frame: 4-6 Weeks Goal 6:: Increase R ankle AROM (at time of the eval: L Ankle AROM: 4, 45, 26, 9. R Ankle AROM: -2 degrees DF, 45, 9 21). Goal Time Frame: 4-6 Weeks Goal Progress: Progressing Anticipated Interventions Patient/Client Instruction: Educate patient on: Condition, Plan of Care For the Purpose of:: To decrease pain, To increase ROM, To improve nutrient delivery to tissue, To improve muscle performance and motor function, To improve ability to perform ADL's, To increase tolerance to activity/condition/position, To improve performance and independence with ADL's, To improve ability of physical actions for home/community/work/leisure, To improve gait and locomotor functions, To improve health of tissue, To decrease soft tissue restriction, To increase flexibility/ROM, To improve balance, To improve safety with gait Therapeutic Exercise to Include: Strength training, Endurance training, Balance training, Postural training, Flexibilty training, Gait and locomotor training, Neuromotor development, Passive ROM, Active ROM For the Purpose of:: To decrease pain, To increase ROM, To improve nutrient deli very to tissue, To improve muscle performance and motor function, To improve ability to perform ADL's, To increase tolerance to activity/condition/position, To improve performance and independence with ADL's, To decrease level of supervision to perform tasks, To improve ability of physical actions for home/community/work/leisure, To improve gait and locomotor functions, To improve health of tissue, To decrease soft tissue restriction, To increase flexibility/ROM, To improve balance, To improve safety with gait Functional Training to Include: Gait training For the Purpose of:: To improve gait and locomotor functions, To increase flexibility/ROM, To improve balance, To improve safety with gait Manual Therapy Techniques to Include: Mobilization, Passive ROM, Soft tissue mobilization For the Purpose of:: To increase ROM, To improve nutrient delivery to tissue, To improve muscle performance and motor function, To increase tolerance to activity/condition/position, To improve performance and independence with ADL's, To decrease level of supervision to perform tasks, To improve gait and locomotor functions, To improve health of tissue, To decrease soft tissue restriction, To increase flexibility/ROM, To improve endurance, To improve balance, To improve safety with gait Please do not hesitate to contact me at [phone] by phone or if you have questions or concerns regarding this new plan of care! Sincerely, WATSON Meneses
--- NOTE | 2022-12-25 11:03 | HP.PT.NRP ---
Patient Information Patient Information: TARIK DUNHAM was seen in my office for initial evaluation on 07/10/22. The following Plan of Care was established for this patient: POC Established Initial Frequency: 2x /Week Initial Duration: 4 Weeks Anticipated Interventions Patient/Client Instruction: Educate patient on: Condition and Plan of Care For the Purpose of:: To decrease pain, To increase ROM, To improve nutrient delivery to tissue, To improve muscle performance and motor function, To improve ability to perform ADL's, To increase tolerance to activity/condition/position, To improve performance and independence with ADL's, To improve ability of physical actions for home/community/work/leisure, To improve gait and locomotor functions, To improve health of tissue, To decrease soft tissue restriction, To increase flexibility/ROM, To improve balance and To improve safety with gait Therapeutic Exercise to Include: Strength training, Endurance training, Balance training, Postural training, Flexibilty training, Gait and locomotor training, Neuromotor development, Passive ROM and Active ROM For the Purpose of:: To decrease pain, To increase ROM, To improve nutrient delivery to tissue, To improve muscle performance and motor function, To improve ability to perform ADL's, To increase tolerance to activity/condition/position, To improve performance and independence with ADL's, To decrease level of supervision to perform tasks, To improve ability of physical actions for home/community/work/leisure, To improve gait and locomotor functions, To improve health of tissue, To decrease soft tissue restriction, To increase flexibility/ROM, To improve balance and To improve safety with gait Functional Training to Include: Gait training For the Purpose of:: To improve gait and locomotor functions, To increase flexibility/ROM, To improve balance and To improve safety with gait Manual Therapy Techniques to Include: Mobilization, Passive ROM and Soft tissue mobilization For the Purpose of:: To increase ROM, To improve nutrient delivery to tissue, To improve muscle performance and motor function, To increase tolerance to activity/condition/position, To improve performance and independence with ADL's, To decrease level of supervision to perform tasks, To improve gait and locomotor functions, To improve health of tissue, To decrease soft tissue restriction, To increase flexibility/ROM, To improve endurance, To improve balance and To improve safety with gait Last Seen Last Seen: This patient was last seen in our office 08/25/22. Pertinent comments regarding their Physical therapy will appear below: Pt cx her last 2 appt due to being ill. DC PT At this point I will be discontinuing this patient from physical therapy. I would be happy to see this patient again in the future if found appropriate by the physician. Thank you! Anel Blanco, WATSON Balance/Gait/Functional tests Balance/Special Test Scores Functional Gait Assessment Score: 18 % Disability: 40.0000 Lower Extremity Functional Score: 41
== END 2022-08-25 19:00 | disposition home or self-care (01) ==
LOC: PT 14:00
PROVIDERS: PCP Internal Medicine; Referring Provider Orthopaedic Surgery; Visit Provider Orthopaedic Surgery
DX: G90.50 Complex regional pain syndrome I, unspecified (principal)
CPT/HCPCS: 97110; 97161

== ENCOUNTER → 2022-11-13 | Outpatient (CLI) | payer MEDICARE, SELFPAY ==
--- NOTE | 2022-11-13 09:34 | US_ITS ---
STUDY: THYROID ULTRASOUND REASON FOR EXAM: Female, 72 years old. Thyroid nodules. TECHNIQUE: Ultrasound evaluation of the thyroid was performed with real-time and static hyatt-scale imaging. COMPARISON: December 25, 2021. FINDINGS: RIGHT LOBE: The right lobe of the thyroid gland measures 4.8 x 1.9 x 1.5 cm. There is a homogeneous echotexture. The mid thyroid there is a 0.5 x 0.3 x 0.5 cm isoechoic nodule. There is adjacent larger nodule just medial which is isodense and measures 0.7 x 0.5 x 0.7 cm in the lower pole posteriorly there is a 0.6 x 0.3 x 0.4 cm mildly hypoechoic nodule. Normal vascularity on Doppler imaging. LEFT LOBE: The left lobe of the thyroid gland measures 3.8 x 1.2 x 1.4 cm. There is a homogeneous echotexture. There is a single cyst with internal nodule measuring 0.7 x 0.6 x 0.5 cm. Normal vascularity on Doppler imaging. ISTHMUS: The isthmus measures 0.3 cm. The regional lymph nodes are normal. US/Thyroid IMPRESSION: 1. Stable isoechoic nodules in the right thyroid. Smaller hypoechoic nodule seen in the lower pole was not incidentally demonstrated. The 2 isoechoic nodules are considered mildly suspicious, TR 3, by BI-RADS categorization require no follow-up. The hypoechoic nodule is considered moderately suspicious, TR 4 requires no FNA or follow-up due to its small size. 2. Predominantly cystic nodule in the left thyroid which appears unchanged from prior exam. This is considered to be benign and no follow-up or FNA is necessary. Electronically Signed: Len Jimenez DO at 23:08 EDT Reading Location ID and State: [facility] Tel [phone], Service support ,
--- NOTE | 2022-11-13 09:34 | ECHOD_ITS ---
Reason For Study: CAD/ ASHD Procedure This was a 2D Doppler, Color Flow transthoracic echocardiogram. Technically difficult study due to breast reconstruction. Exam performed in department. Left Ventricle Normal LV size. Left ventricular systolic function is normal. The estimated ejection fraction is 60 %. Normal diastology for age. No regional wall motion abnormalities noted. Right Ventricle Normal RV size. Normal systolic function. Atria Normal left atrium. Normal right atrium. Mitral Valve Normal mitral valve. Tricuspid Valve Normal tricuspid valve. Mild tricuspid valve insufficiency. Pulmonary artery systolic pressure is 27 mmHg. Aortic Valve The aortic valve is not well visualized. Pulmonic Valve The pulmonic valve is not well visualized. Great Vessels Normal aortic root. The pulmonary artery is normal size. Normal inferior vena cava. Pericardium/Pleural No pericardial effusion. MMode/2D Measurements & Calculations LVIDd: 4.7 cm IVSd: 0.87 cm Ao root diam: 2.9 cm LVIDs: 2.9 cm LVPWd: 0.75 cm LA dimension: 3.2 cm RVDd: 3.3 cm FS: 37.0 % LAV(MOD-bp): 39.4 ml LA A4 area: 13.9 cm2 RA A4 area: 12.6 cm2 LAV(MOD-bp) Indexed: 22.9 ml/m2 LAV(MOD-sp2): 41.7 ml LAV(MOD-sp4): 35.9 ml Time Measurements MV dec time: 0.17 sec Doppler Measurements & Calculations MV E max fabiano: 84.1 cm/sec Lat Peak E' Fabiano: 11.5 cm/sec Med Peak E' Fabiano: 9.3 cm/sec MV A max fabiano: 65.1 cm/sec E/E' lat: 7.3 E/E' med: 9.0 MV E/A: 1.3 MV V2 max: 93.9 cm/sec MV P1/2t max fabiano: 95.9 cm/sec Ao V2 max: 140.2 cm/sec MV max P.5 mmHg MV P1/2t: 67.9 msec Ao max P.9 mmHg MV V2 mean: 50.5 cm/sec MV dec slope: 413.6 cm/sec2 Ao V2 mean: 96.9 cm/sec MV mean P.2 mmHg MVA(P1/2t): 3.2 cm2 Ao mean P.2 mmHg MV V2 VTI: 27.8 cm Ao V2 VTI: 35.7 cm AV (velocity ratio): 0.88 LV V1 max: 132.9 cm/sec MR max fabiano: 609.2 cm/sec PA V2 max: 90.2 cm/sec LV V1 max P.1 mmHg MR max P.4 mmHg PA V2 mean: 62.7 cm/sec LV V1 mean P.4 mmHg MR mean fabiano: 455.6 cm/sec LV V1 mean: 84.8 cm/sec MR mean P.0 mmHg LV V1 VTI: 31.5 cm MR VTI: 261.6 cm TR max fabiano: 248.4 cm/sec TR max P.7 mmHg ECHO/Echo Complete Interpretation Summary Normal LV size. Left ventricular systolic function is normal. The estimated ejection fraction is 60 %. Pulmonary artery systolic pressure is 27 mmHg. Ordering Physician: Clay Jean Referring Physician: Frank Arredondo Performed By: Renny Mcbride RCS
== END | disposition home or self-care (01) ==
LOC: CVS 09:31
PROVIDERS: PCP Internal Medicine; Referring Provider Surgery; Visit Provider Surgery
DX: E04.2 Nontoxic multinodular goiter (principal); G47.30 Sleep apnea, unspecified
CPT/HCPCS: 76536; 93306

== ENCOUNTER 2022-12-22 10:19 | Outpatient (RCR) | payer MEDICARE, SELFPAY | END 2022-12-22 10:19 | disposition home or self-care (01) | LOC: PT 10:19 | PROVIDERS: PCP Internal Medicine; Referring Provider Orthopaedic Surgery; Visit Provider Orthopaedic Surgery | DX: M25.371 Other instability, right ankle (principal) ==

== ENCOUNTER → 2023-02-04 | Outpatient (CLI) | payer MEDICARE, SELFPAY ==
[2023-02-04 10:20] LABS: AST(SGOT) 19 U/L (15-37); Alanine Aminotransfer ALT/SGPT 25 U/L (13-56); Albumin, Serum 3.2 g/dL (3.2-5.0); Alkaline Phosphatase 67 U/L (45-117); Bilirubin, Direct 0.08 mg/dL (0.00-0.30); Cholesterol 184 mg/dL (200); Globulin 3.2 g/dL (2.2-4.2); High Density Lipoprotein 54 mg/dL; Protein, Total 6.4 g/dL (6.4-8.2); Triglycerides 106 mg/dL; Very Low Density Lipoprotein 21 mg/dL (5-40)
== END | disposition home or self-care (01) ==
LOC: LAB 08:36
PROVIDERS: PCP Internal Medicine; Visit Provider Nurse Practitioner Family
DX: E78.5 Hyperlipidemia, unspecified (principal)
CPT/HCPCS: 36415; 80061; 80076

== ENCOUNTER 2023-07-01 13:00 | Outpatient (RCR) | payer MEDICARE, SELFPAY ==
--- NOTE | 2023-04-27 12:06 | HP.PTEVAL ---
Patient's Visit Information Visit Information Visit Information: TARIK DUNHAM is a 73 year old F referred to Physical Therapy by ALTAF METZ with a diagnosis of R TKR 03/24/23. Date of Evaluation: 04/27/23 Physical Therapist: Anel Blanco MPT Visit Plan Frequency: 3x /Week Duration: 2 Months Plan: 3X/ week for 8 weeks for R knee PROM, AAROM, AROM, R hip and knee strength, gait training, stair negotiation with HEP HEP: SLR, Hell slides, QS, towel gastroc stretch, LAQ Subjective Subjective: Pt had a R TKR on 03-24-23. She had home PT and she is walking with a straight cane. She is walking at home without the cane. She is going up and down stairs but goes up with the good and down with the bad with a railing. She is having R knee sharp medial knee pain that hurts when she pushes it back. Pain R knee pain: Pain Intensity (Out of 10): 5 Objective Objective: R knee AROM -2 to 95 (can get to 102 degrees PROM) Pt is able to do X 10 SLR (verbal cues to keep knee straight) Palpation: tender along the medial joint and pitting edema along the medial joint line Pt likes to sit with leg out stretched.... R hip flexion 8.6 and L 11 R knee ext 4.5 and L 13.3 R knee flex 4.2 and L 10# Pt is very painful with PROM but does best when she goes slower to start her ROM and needs VC to relax Stairs: up and down rexip with 2 hand rails with hesitation TUG 26.2 Balance/Special Test Scores WOMAC Total Score: 48 WOMAC Percentatge: 50.0000 Goals Goal 1:: I HEP Goal Time Frame: 8-12 Weeks Goal 2:: Be able to go up and down steps recip with 1 light hand rails for safety Goal Time Frame: 8-12 Weeks Goal 3:: Increase R knee AROM 0-120 degrees flexion Goal Time Frame: 8-12 Weeks Goal 4:: Walk with a normal gait pattern with no device Goal Time Frame: 8-12 Weeks Goal 5:: Be able to to sit to stand with no UE support X 10 Goal Time Frame: 8-12 Weeks Rehabilitation Potential Rehabilitation Potential: Good Anticipated Interventions Patient/Client Instruction: Educate patient on: Condition and Plan of Care For the Purpose of:: To decrease pain, To decrease swelling/inflammation, To increase ROM, To improve nutrient delivery to tissue, To improve muscle performance and motor function, To improve ability to perform ADL's, To increase tolerance to activity/condition/position, To improve performance and independence with ADL's, To decrease level of supervision to perform tasks, To improve ability of physical actions for home/community/work/leisure, To improve gait and locomotor functions, To improve health of tissue, To decrease soft tissue restriction, To increase flexibility/ROM, To improve balance and To improve safety with gait Therapeutic Exercise to Include: Strength training, Endurance training, Postural training, Flexibilty training, Gait and locomotor training, Neuromotor development, Passive ROM and Active ROM For the Purpose of:: To decrease pain, To decrease swelling/inflammation, To increase ROM, To improve nutrient delivery to tissue, To improve muscle performance and motor function, To improve ability to perform ADL's, To increase tolerance to activity/condition/position, To improve performance and independence with ADL's, To decrease level of supervision to perform tasks, To improve ability of physical actions for home/community/work/leisure, To improve gait and locomotor functions, To improve health of tissue, To decrease soft tissue restriction, To increase flexibility/ROM, To improve endurance, To improve balance and To improve safety with gait Functional Training to Include: Gait training For the Purpose of:: To improve gait and locomotor functions and To improve safety with gait Manual Therapy Techniques to Include: Passive ROM and Soft tissue mobilization For the Purpose of:: To decrease pain, To decrease swelling/inflammation, To increase ROM, To improve nutrient delivery to tissue, To increase tolerance to activity/condition/position, To improve performance and independence with ADL's, To improve gait and locomotor functions, To improve health of tissue, To decrease soft tissue restriction and To increase flexibility/ROM Text: Thank you for the opportunity to evaluate your patient. For Medicare and Medicare HMO plans, please review the plan of care and approve it. It will need to be FAXED BACK to us at [phone] for Medicare purposes. For Medicare only, by signing this I certify the plan of care. Please let me know if there are questions or concerns regarding this plan of care. Physician Signature: Date:
--- NOTE | 2023-05-18 16:02 | HP.PTREVAL ---
Re-Evaluation Intro: ALTAF METZ, It has been my pleasure to treat TARIK DUNHAM over the last 10 visits for R TKR 03/24/23. Please see the progress note below for an update on the physical therapy plan of care! Subjective Subjective: Pt is still working on her knee at home. She noticed that it was black and blue the other day but seems to be better today. Objective Objective/Function: Stairs: up and down recip with 1 hand rail with signs of weakness and hesistation Gait: walks with decrease stance time on the R LE. Has some increase in veering as well AROM R knee: 0-125 Sit to stand X 10 LE MMT: R hip flex 9.7 and L 11.7 R knee ext 13.4 and L 18.9 R knee flex 5.9 and L 11.9 Plan Plan Plan: Maintain ROM and focus on strength and gait 3X/ week for 8 weeks for R knee PROM, AAROM, AROM, R hip and knee strength, gait training, stair negotiation with HEP HEP: SLR, Hell slides, QS, towel gastroc stretch, LAQ Balance/Gait/Functional tests Balance/Special Test Scores Lower Extremity Functional Score: 52 WOMAC Total Score: 48 WOMAC Percentage: 50.0000 Goals Goals Goal 1:: I HEP Goal Time Frame: 8-12 Weeks Goal Progress: Goal Met Goal 2:: Be able to go up and down steps recip with 1 light hand rails for safety Goal Time Frame: 8-12 Weeks Goal Progress: Progressing Goal 3:: Increase R knee AROM 0-120 degrees flexion Goal Time Frame: 8-12 Weeks Goal Progress: Goal Met Goal 4:: Walk with a normal gait pattern with no device Goal Time Frame: 8-12 Weeks Goal Progress: Progressing Goal 5:: Be able to to sit to stand with no UE support X 10 Goal Time Frame: 8-12 Weeks Goal Progress: Goal Met Goal 6:: Increase LE strength (LE MMT: R hip flex 9.7 and L 11.7 R knee ext 13.4 and L 18.9 R knee flex 5.9 and L 11.9) Goal Time Frame: 6-8 Weeks Anticipated Interventions Anticipated Interventions Patient/Client Instruction: Educate patient on: Condition and Plan of Care For the Purpose of:: To decrease pain, To decrease swelling/inflammation, To increase ROM, To improve nutrient delivery to tissue, To improve muscle performance and motor function, To improve ability to perform ADL's, To increase tolerance to activity/condition/position, To improve performance and independence with ADL's, To decrease level of supervision to perform tasks, To improve ability of physical actions for home/community/work/leisure, To improve gait and locomotor functions, To improve health of tissue, To decrease soft tissue restriction, To increase flexibility/ROM, To improve balance and To improve safety with gait Therapeutic Exercise to Include: Strength training, Endurance training, Postural training, Flexibilty training, Gait and locomotor training, Neuromotor development, Passive ROM and Active ROM For the Purpose of:: To decrease pain, To decrease swelling/inflammation, To increase ROM, To improve nutrient delivery to tissue, To improve muscle performance and motor function, To improve ability to perform ADL's, To increase tolerance to activity/condition/position, To improve performance and independence with ADL's, To decrease level of supervision to perform tasks, To improve ability of physical actions for home/community/work/leisure, To improve gait and locomotor functions, To improve health of tissue, To decrease soft tissue restriction, To increase flexibility/ROM, To improve endurance, To improve balance and To improve safety with gait Functional Training to Include: Gait training For the Purpose of:: To improve gait and locomotor functions and To improve safety with gait Manual Therapy Techniques to Include: Passive ROM and Soft tissue mobilization For the Purpose of:: To decrease pain, To decrease swelling/inflammation, To increase ROM, To improve nutrient delivery to tissue, To increase tolerance to activity/condition/position, To improve performance and independence with ADL's, To improve gait and locomotor functions, To improve health of tissue, To decrease soft tissue restriction and To increase flexibility/ROM Re-Evaluation Ending Re-evaluation ending: Please do not hesitate to contact me at [phone] by phone or if you have questions or concerns regarding this new plan of care! Sincerely, WATSON Meneses
--- NOTE | 2023-06-24 10:30 | HP.PTREVAL ---
Re-Evaluation Intro: ALTAF METZ, It has been my pleasure to treat TARIK DUNHAM over the last 20 visits for R TKR 03/24/23. Please see the progress note below for an update on the physical therapy plan of care! Subjective Subjective: Pt reports that she has just discomfort on both sides of her knee... maybe just tight. She has been feeling that her strength is just not there yet. She got some exercises for home but have not done them yet. She has a blue band as well. It bothers her the most when she sits at night and rests and it is achy. Objective Objective/Function: Gait: lacks knee ext Stairs: up and down recip with 1 hand rail -2 degrees from full ext on the R and 130 degrees R knee flexion LE MMT: R hip flex 10.4 and L 13.3 R knee ext 22.1 and L 24.2 R knee flex 11.4 and L 14.8 Instruced her in supine QS and standing TKE as she lacks ext of the knee with gait as well Plan Plan Plan: 2 more visits to learn idep machines (paper written with machine numbers and reps/weights) and then go on own to continue strength. Instruced her in supine QS and standing TKE as she lacks ext of the knee with gait as well Maintain ROM and focus on strength and gait 3X/ week for 8 weeks for R knee PROM, AAROM, AROM, R hip and knee strength, gait training, stair negotiation with HEP HEP: SLR, Hell slides, QS, towel gastroc stretch, LAQ Balance/Gait/Functional tests Balance/Special Test Scores Lower Extremity Functional Score: 61 WOMAC Total Score: 48 WOMAC Percentage: 50.0000 Goals Goals Goal 1:: I gym routine Goal Time Frame: 8-12 Weeks Goal Progress: Progressing Goal 2:: Be able to go up and down steps recip with 1 light hand rails for safety Goal Time Frame: 8-12 Weeks Goal Progress: Goal Met Goal 3:: Increase R knee AROM 0-120 degrees flexion Goal Time Frame: 8-12 Weeks Goal Progress: Goal Met Goal 4:: Walk with a normal gait pattern with no device Goal Time Frame: 8-12 Weeks Goal Progress: Progressing Goal 5:: Be able to to sit to stand with no UE support X 10 Goal Time Frame: 8-12 Weeks Goal Progress: Goal Met Goal 6:: Increase LE strength (LE MMT: R hip flex 9.7 and L 11.7 R knee ext 13.4 and L 18.9 R knee flex 5.9 and L 11.9) Goal Time Frame: 6-8 Weeks Goal Progress: Goal Met Anticipated Interventions Anticipated Interventions Patient/Client Instruction: Educate patient on: Condition and Plan of Care For the Purpose of:: To decrease pain, To decrease swelling/inflammation, To increase ROM, To improve nutrient delivery to tissue, To improve muscle performance and motor function, To improve ability to perform ADL's, To increase tolerance to activity/condition/position, To improve performance and independence with ADL's, To decrease level of supervision to perform tasks, To improve ability of physical actions for home/community/work/leisure, To improve gait and locomotor functions, To improve health of tissue, To decrease soft tissue restriction, To increase flexibility/ROM, To improve balance and To improve safety with gait Therapeutic Exercise to Include: Strength training, Endurance training, Postural training, Flexibilty training, Gait and locomotor training, Neuromotor development, Passive ROM and Active ROM For the Purpose of:: To decrease pain, To decrease swelling/inflammation, To increase ROM, To improve nutrient delivery to tissue, To improve muscle performance and motor function, To improve ability to perform ADL's, To increase tolerance to activity/condition/position, To improve performance and independence with ADL's, To decrease level of supervision to perform tasks, To improve ability of physical actions for home/community/work/leisure, To improve gait and locomotor functions, To improve health of tissue, To decrease soft tissue restriction, To increase flexibility/ROM, To improve endurance, To improve balance and To improve safety with gait Functional Training to Include: Gait training For the Purpose of:: To improve gait and locomotor functions and To improve safety with gait Manual Therapy Techniques to Include: Passive ROM and Soft tissue mobilization For the Purpose of:: To decrease pain, To decrease swelling/inflammation, To increase ROM, To improve nutrient delivery to tissue, To increase tolerance to activity/condition/position, To improve performance and independence with ADL's, To improve gait and locomotor functions, To improve health of tissue, To decrease soft tissue restriction and To increase flexibility/ROM Re-Evaluation Ending Re-evaluation ending: Please do not hesitate to contact me at [phone] by phone or if you have questions or concerns regarding this new plan of care! Sincerely, Anel Blanco, MPT
--- NOTE | 2023-07-01 13:34 | HP.PTDCSUM_ITS ---
Discharge Summary D/C summary: It has been my pleasure to treat TARIK DUNHAM referred by ALTAF METZ, with the diagnosis of R TKR 03/24/23 for a total of 22 visit(s). Discharge Date: 07/01/23 Please see the following information for a summary of their discharge status. Subjective Subjective: Pt is leaving for [facility] for a week. She has a gym routine out here that she will start soon. Pt feels good. She knows that she is weak. She still has pain on the sides of her knee. She noticed that she was really stiff last week when she did not do her exercises in the gym. She reports that it hurts worse at night. Pain R knee pain: Pain Intensity (Out of 10): 5 Overall Improvement % Improvement: 80 Objective Objective/Function: gait: Walks with B knee flexion still but much improved heel to toe gait pattern and equal stance time on B LE's Pt feels comfortable with indep with gym routine Goals Goal 1:: I gym routine Goal Progress: Goal Met Goal 2:: Be able to go up and down steps recip with 1 light hand rails for safety Goal Progress: Goal Met Goal 3:: Increase R knee AROM 0-120 degrees flexion Goal Progress: Goal Met Goal 4:: Walk with a normal gait pattern with no device Goal Progress: Goal Met Goal 5:: Be able to to sit to stand with no UE support X 10 Goal Progress: Goal Met Goal 6:: Increase LE strength (LE MMT: R hip flex 9.7 and L 11.7 R knee ext 13.4 and L 18.9 R knee flex 5.9 and L 11.9) Goal Progress: Goal Met Plan Plan: DC PT to I gym routine D/C Information Discharge Comments: DC PT to HEP d/c sentence: If there are questions or concerns regarding this patient's physical therapy, please feel free to call me at [phone]. Thank you for the referral of this patient. Sincerely, Anel Blanco, MPT Balance/Gait/Functional tests Balance/Special Test Scores Lower Extremity Functional Score: 66 WOMAC Total Score: 48 WOMAC Percentage: 50.0000 Improvement % Improvement: 80
== END 2023-07-01 19:00 | disposition home or self-care (01) ==
LOC: PT 13:00
PROVIDERS: PCP Internal Medicine
DX: M17.11 Unilateral primary osteoarthritis, right knee (principal); Z96.651 Presence of right artificial knee joint
CPT/HCPCS: 97110; 97161; 97530

== ENCOUNTER → 2023-10-28 | Outpatient (CLI) | payer MEDICARE, SELFPAY ==
[2023-10-28 11:44] LABS: AST(SGOT) 17 U/L (15-37); Alanine Aminotransfer ALT/SGPT 18 U/L (13-56); Albumin, Serum 3.7 g/dL (3.2-5.0); Alkaline Phosphatase 64 U/L (45-117); Bilirubin, Direct 0.11 mg/dL (0.00-0.30); Cholesterol 216 mg/dL (200); Globulin 2.9 g/dL (2.2-4.2); High Density Lipoprotein 72 mg/dL; Protein, Total 6.6 g/dL (6.4-8.2); Triglycerides 92 mg/dL; Very Low Density Lipoprotein 18 mg/dL (5-40)
== END | disposition home or self-care (01) ==
PROVIDERS: PCP Internal Medicine; Visit Provider Nurse Practitioner Gerontology
DX: E78.00 Pure hypercholesterolemia, unspecified (principal)
CPT/HCPCS: 36415; 80061; 80076

== ENCOUNTER 2024-04-12 11:51 | Emergency (ER) | payer MEDICARE, SELFPAY ==
[2024-04-12 11:52] VITALS: BP 126/61; PULSE 60; RESP 18; TEMP 36.3; O2SAT 100; BMI 25.0
[2024-04-12 13:51] VITALS: BP 123/74; PULSE 53; RESP 16; O2SAT 96
--- NOTE | 2024-04-12 13:51 | CT_ITS ---
INDICATION: Injury/Pain EXAMINATION: CT BRAIN - CT Head or Brain W/O Contrast Injection TECHNIQUE: Multiple axial images were obtained of the head without intravenous contrast. The protocol utilizes one or more of the following dose reduction techniques: automated exposure control, adjustment of mA and/or kV according to patient size,and/or use of iterative reconstruction technique. IV Contrast dosage and agent: None. RADIATION DOSAGE (If Supplied By Facility): CTDIvol = ( 47.06 ) mGy, DLP = ( 943.26 ) mGycm COMPARISON: No relevant prior comparison study available FINDINGS: BRAIN PARENCHYMA: No intra- or extra-axial hemorrhage. No evidence of acute infarct. No intracranial mass or mass effect. There is preservation of the hyatt/white matter interface. Posterior fossa structures are unremarkable. CSF SPACES: Appropriate for age. No hydrocephalus. Basal cisterns are patent. CALVARIUM, SKULL BASE, PARANASAL SINUSES AND MASTOID AIR CELLS: Clear. No discrete lytic or blastic abnormalities. ORBITS: Both globes, extraocular muscles, optic nerves and retrobulbar fat appear unremarkable. ASPECTS Score for Acute Strokes: 10 CT/Brain/Head without Contrast IMPRESSION: No acute intracranial process. Electronically Signed: Marya Fernandez MD at 14:36 EDT ,
--- NOTE | 2024-04-12 13:51 | RAD_ITS ---
STUDY: X-RAY - LEFT SHOULDER REASON FOR EXAM: Female, 74 years old. Injury/Pain. TECHNIQUE: 4 views of the left shoulder. COMPARISON: None. FINDINGS: There is glenohumeral arthrosis with osteophyte formation along the inferomedial margin of the humeral head. There is mild acromioclavicular arthrosis. Normal acromion. There is calcific density adjacent to the greater tuberosity of the humeral head, compatible with calcific tendinitis of the rotator cuff. Intact humeral head and visualized proximal humerus. The soft tissue structures are unremarkable. There is no demonstrated fracture. Normal visualized pulmonary apex. RAD/Shoulder min 2 Views IMPRESSION: Glenohumeral arthrosis and mild acromioclavicular arthrosis. Calcific tendinitis of the rotator cuff. No demonstrated fracture. Electronically Signed: Dayne Clay MD at 14:43 EDT ,
--- NOTE | 2024-04-12 13:51 | ED.VIS.FALL ---
HPI HPI - Fall History of Present Illness Chief Complaint: Fall Informant: patient Occured/Mechanism Occurred: Yesterday Mechanism/Context: Yes same level fall and Yes trip Narrative: Patient tripped and fell walking into a restaurant yesterday. Usually ambulates: Without assistance Pain/Injury Location: Left shoulder, left ribs, and head Pain Location: head, chest and upper extremity (Left shoulder) Quality of Pain: Sharp Worsened by: Deep breathing and movement Relieved by: Nothing Associated Symptoms Associated Symptoms: Negative for Parasthesias, Weakness, Loss of function, Inability to ambulate, Loss of consciousness or Amnesia Narrative Narrative: Patient presents with pain to the left side of her head, left shoulder, and left rib that began after a fall yesterday. Patient states she tripped while walking into a restaurant. Patient states she landed on her left side. Patient denies any loss of consciousness. Patient did hit the left side of her head. Patient denies any paresthesias or weakness. Patient describes her pain as sharp. Patient states it is worse with deep breathing and with certain movements. Patient denies any other injuries. [facility] Medical History Thyroid nodule Hyperlipidemia Hypothyroidism GERD (gastroesophageal reflux disease) Osteopenia Osteoarthritis Neuropathy Carpal tunnel syndrome Cataracts, bilateral Breast cancer Arthritis Seasonal allergies Home Medications ?Medication ?Instructions ?Recorded ?Last Taken ?Type magnesium 200 mg tablet 200 mg PO DAILY 11/12/21 Unknown History calcium 500 mg (as 1 tab PO DAILY 09/22/22 Unknown History carbonate)-vitamin D3 3.125 mcg (125 unit) tablet melatonin 5 mg tablet 5 mg PO HS PRN 10/22/22 Unknown History gabapentin 300 mg capsule 300 mg PO BID 11/21/22 Unknown History Allergy/AdvReac Type Severity Reaction Status Date / Time Iodinated Contrast Media Allergy Itching Verified 04/12/24 11:52 (Iodinated Contrast Media - IV Dye) Family History Mother Breast cancer Father Myocardial infarction, Onset Age: 42 Heart disease Hypertension High cholesterol Grandmother CVA (cerebral vascular accident) Sister Breast cancer Aunt Breast cancer Surgical History History of right knee joint replacement History of tonsillectomy History of surgery on right wrist History of bilateral carpal tunnel release History of foot surgery History of shoulder surgery H/O bilateral mastectomy History of hysterectomy Social History Smoking Status: Never smoker alcohol intake: current alcohol intake frequency: a few times a week substance use type: does not use caffeine: Yes Type: coffee Number of servings: 6 what type of physical activity do you participate in: none ROS ROS ED Constitutional Constitutional ED: Denies chills or fever(s) Eyes Eyes: Denies blurry vision or change in vision ENT ENT ED: Denies rhinorrhea or sore throat Cardiovascular Cardiovascular: Reports chest pain; Denies palpitations Respiratory/Chest Respiratory/Chest: Denies cough or dyspnea Gastrointestinal Gastrointestinal: Denies nausea or vomiting Genitourinary Genitourinary ED: Denies dysuria or hematuria Musculoskeletal Musculoskeletal: Reports back pain; Denies neck pain Integumentary Denies abscess or rash Neurologic Neurologic: Reports headache(s); Denies weakness Allergic/Immunologic Allergic/Immunologic ED: Denies mouth swelling or urticaria EXAM Physical Exam Const Vital Signs: 04/12/24 11:52 04/12/24 12:51 04/12/24 13:51 Temperature 97.4 F L Temperature Source Temporal Pulse Rate 60 53 L Respiratory Rate 18 16 Respiratory Effort Normal Respiratory Depth Normal Blood Pressure 126/61 H 123/74 H Blood Pressure Mean 82 90 Pulse Ox 100 96 Oxygen Delivery Method Room Air Positive well nourished and well developed General Appearance ED: well developed and NAD HEENT Reports normocephalic Neck full ROM and supple Chest Wall Chest Narrative: There is tenderness over the left fourth, fifth, and sixth ribs laterally. There is no bony crepitance or step-off. There is no subcutaneous emphysema noted. Resp normal respiratory effort and clear to auscultation bilaterally Cardio regular rate and regular rhythm GI non-tender and non-distended Palpation: soft Back/Spine no CVA tenderness Neuro oriented x3, CN's II-XII intact bilaterally, moves all extremities, no focal motor deficits and no sensory deficits noted Logan Coma Scale: document GCS findings Spontaneous Obeys Commands Oriented 15 Sensorium / Orientation: alert Motor Exam: strength 5/5 throughout Psych mental status grossly normal MDM MDM MDM Narrative Medical decision making narrative: Differential diagnosis includes intracranial bleeding, closed head injury, shoulder fracture, dislocation, contusion, rib fracture, pneumothorax, and chest wall contusion. X-rays of the left wrist will be obtained to assess for fracture or pneumothorax. X-rays of the left shoulder will be obtained to assess for fracture and dislocation. CT scan of the brain will be obtained to assess for intracranial bleeding. Radiography Diagnostic Testing: Clinical Impression(s) from Imaging Studies Brain CT 04/12/24 13:51 IMPRESSION: No acute intracranial process. Electronically Signed: Marya Fernandez MD at 14:36 EDT , Shoulder X-Ray 04/12/24 13:51 IMPRESSION: Glenohumeral arthrosis and mild acromioclavicular arthrosis. Calcific tendinitis of the rotator cuff. No demonstrated fracture. Electronically Signed: Dayne Clay MD at 14:43 EDT , Ribs w/Chest X-Ray 04/12/24 14:14 IMPRESSION: RIBS: Normal x-ray examination of the left ribs. CHEST: Mild atherosclerotic calcification of the aortic arch. Electronically Signed: Dayne Clay MD at 14:52 EDT , CT scan of the brain was obtained. There is no acute intracranial abnormality. This was interpreted by the radiologist and was also independently reviewed by myself. X-rays of the left shoulder were obtained. There are 4 views. On my independent interpretation, there is no acute fracture or dislocation noted. There is some calcific tendinitis of the rotator cuff. There are mild degenerative changes noted. Radiologist also interpreted the x-rays and agrees. X-rays of the left wrist were obtained. There are 5 views. On my independent interpretation, there is no acute fracture. There is no pneumothorax. There is no acute cardiopulmonary process. Radiologist also interpreted the x-rays and agrees. Treatment and Re-Evaluation Narrative: Patient was advised of her findings. Patient was instructed to use ice to her shoulder and ribs. Patient was instructed to follow-up with her primary care physician in 5 to 7 days. Patient was instructed to take Tylenol or ibuprofen as needed for pain. Patient understood and was agreeable with the plan. All questions were answered. Discharge Plan Triage Chief Complaint: Fall ED Provider: Fazal Mcmanus Dx/Rx/DC Orders Clinical Impression: Contusion of chest wall, Contusion of left shoulder, Closed head injury, Fall Instructions: ED Head Injury (Adult), ED Bruise, Rib, ED Shoulder Bruise Prescriptions: No Action magnesium 200 mg tablet 200 mg PO DAILY calcium carbonate-vitamin D3 500 mg-3.125 mcg (125 unit) tablet 1 tab PO DAILY melatonin 5 mg tablet 5 mg PO HS PRN gabapentin 300 mg capsule 300 mg PO BID Primary Care Provider: Garo Steele Referrals: Garo Steele MD [Primary Care Provider] - 5-7 Days Print Language: Mosotho Disposition Disposition: Home, Self Care
--- NOTE | 2024-04-12 14:14 | RAD_ITS ---
STUDY: X-RAY - UNILATERAL RIBS ( LEFT ) WITH CHEST REASON FOR EXAM: Female, 74 years old. Trauma. TECHNIQUE - RIBS: 4 views of the left ribs. TECHNIQUE - CHEST: Single PA view of the chest. COMPARISON: None. FINDINGS - RIBS: Normal visualized left ribs without a demonstrated fracture. FINDINGS - CHEST: The lungs are clear and expanded. There is no demonstrated pleural abnormality. Normal size heart. Normal mediastinum and vee. Normal visualized pulmonary arteries. There is mild atherosclerotic calcification of the aortic arch. Normal visualized thoracic spine. Normal visualized ribs, clavicles, and shoulders. There is no demonstrated abnormality of the visualized soft tissue structures of the upper abdomen. RAD/Ribs Uni Min 3V w/PA Chest IMPRESSION: RIBS: Normal x-ray examination of the left ribs. CHEST: Mild atherosclerotic calcification of the aortic arch. Electronically Signed: Dayne Clay MD at 14:52 EDT ,
[2024-04-12 15:00] VITALS: BP 124/74; PULSE 55; RESP 16; O2SAT 98
[2024-04-12 15:52] VITALS: BP 134/78; PULSE 79; RESP 16; TEMP 36.2; O2SAT 100
[2024-04-12] MEDS: HYDROcodone Bitartrate/Apap 5/325 Tablet PO (15:52)
== END 2024-04-12 15:53 | disposition home or self-care (01) ==
PROVIDERS: Emergency Provider Emergency Medicine; PCP Internal Medicine; Visit Provider Emergency Medicine
DX: S09.90XA Unspecified injury of head, initial encounter (principal); S40.012A Contusion of left shoulder, initial encounter; S20.20XA Contusion of thorax, unspecified, initial encounter; E78.5 Hyperlipidemia, unspecified; W01.10XA Fall on same level from slipping, tripping and stumbling with subsequent striking against unspecified object, initial encounter; Y93.01 Activity, walking, marching and hiking; Y92.511 Restaurant or cafe as the place of occurrence of the external cause; Z85.3 Personal history of malignant neoplasm of breast; Z96.651 Presence of right artificial knee joint; Z90.10 Acquired absence of unspecified breast and nipple; Z90.710 Acquired absence of both cervix and uterus
CPT/HCPCS: 70450; 71101; 73030; 99282

== ENCOUNTER → 2024-05-20 | Outpatient (CLI) | payer MEDICARE, SELFPAY ==
--- NOTE | 2024-05-20 15:48 | STRESSREP_ITS ---
Stress Test Report Exercise myocardial perfusion stress test. 74-year-old lady with a history of chest pain Stress protocol: Resting EKG demonstrates normal sinus rhythm with a rate of 73 bpm resting blood pressure is 118/80 mmHg. The patient exercised according to the regular Lefty protocol for a total duration of 6 minutes attaining a maximum heart rate of 153 bpm which was 106% of maximum predicted heart rate; the maximum workload was 7 metabolic equivalents. At rest there were no ST or T wave changes noted to suggest ischemia and at peak exercise upsloping ST changes only were noted which did not meet the criteria for ischemia. No clinical angina was noted the test was terminated due to the target heart rate being achieved/fatigue. The peak bl ood pressure was 138/80 mmHg. Rate-pressure product was 18,200. Myocardial perfusion protocol. 11.5 mCi of technetium 99m sestamibi was injected at rest. The patient exercised according to regular Lefty protocol for total duration of 6 minutes and at peak exercise 33.6 mCi of technetium 99m sestamibi was injected stress images were obtained stress and rest images were reconstructed in comparing the short axis vertical long and horizontal long axis. Gated images were also obtained. Perfusion SPECT analysis: Review of the stress images demonstrate normal uptake of tracer noted in all areas of the myocardium. The resting images similarly demonstrate normal uptake of tracer noted in all areas of the myocardium. No areas of reversibility are noted to suggest ischemia no previous infarct was noted. Gated SPECT analysis: The gated ejection fraction is 84%. Conclusion: Normal exercise myocardial perfusion stress test at a moderate workload Preserved ejection fraction.
== END | disposition home or self-care (01) ==
PROVIDERS: PCP Internal Medicine; Referring Provider Nurse Practitioner Gerontology; Visit Provider Nurse Practitioner Gerontology
DX: R07.9 Chest pain, unspecified (principal)
CPT/HCPCS: 78452; 93017; A9500; A4216

== ENCOUNTER 2024-12-09 10:26 | Day surgery (SDC) | payer MEDICARE, SELFPAY ==
--- NOTE | 2024-12-08 12:44 | PAT.ANE_ITS ---
Pre-Assessment Diagnosis/Proposed Procedure Planned Operative Procedure(s): EGD Anesthesia History Anesthesia History - table cover folder: Anesthesia History - table cover folder Hx Hospitalization No 12/08/24 09:04 Any Problems With Anesthesia No 12/08/24 09:04 Cholinesterase deficiency No 12/08/24 09:04 You/Your Family Experience No 12/08/24 09:04 fever (hyperthermia) with Relationship Recent Exposure to Contagious No 10/16/21 11:19 Disease Does patient have nerve No 12/08/24 09:04 stimulator Patient instructed to have device shut off --Does patient have Pacemaker or ICD? When Was Last Pacemaker Check QUESTION #4 FULL TEXT: You/Your Family Experience fever (hyperthermia) with Anesthesia Last Oral Intake Last Oral intake: Last Oral Intake NPO since Meds taken in AM with sips of water? Meds patient instructed to take am of surgery PONV PONV - table cover folder: PONV - table cover folder Female Yes 12/08/24 09:04 HX of Motion Sickness No 12/08/24 09:04 HX of N/V After Surgery No 12/08/24 09:04 Non-Smoker Yes 12/08/24 09:04 Duration of Surgery greater No 12/08/24 09:04 than 60 minutes Number of Risk Factors 2 12/08/24 09:04 PONV Score Moderate Risk 12/08/24 09:04 Height & Weight Height & Weight: Anesthesia: Height & Weight Height 5 ft 5 in 11/14/24 09:18 Respiratory Assessment Respiratory Assessment - table cover folder: Respiratory Tract Infection Hx - table cover folder Hx Respiratory Tract Infection No 12/08/24 09:04 STOP Sleep Apnea STOP Sleep Apnea - table cover folder: STOP Sleep Apnea - table cover folder Hx Hypertension No 12/08/24 09:04 Hx Sleep Apnea Yes 12/08/24 09:04 CPAP Yes 12/08/24 09:04 BIPAP No 12/08/24 09:04 Do you snore loudly (louder than talking or can be heard Do you often feel tired/ fatigued/ sleepy during daytime? Has anyone observed you stop breathing during sleep? STOP Results Positive 12/08/24 09:04 QUESTION #5 FULL TEXT : Do you snore loudly (louder than talking or can be heard through closed doors)? 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 Specify any problems Hx of Preganancy in last 3 N/A 12/08/24 09:04 Months Nurse Filling Out Transfusion NBU[facility]ER 12/08/24 09:04 & Questions: Date: 12/08/24 12/08/24 09:04 Time: 09:12/08/24 09:04 Patient unable to answer at this time (ie. confused, unrespo /Reproduction History /Reproductive History - table cover folder: /Reproductive Hx- table cover folder Hx Now No 12/08/24 09:04 Gestational Age (in weeks): EDC: Hx Hx Para Hx Section SAB No 12/08/24 09:04 [facility] Medical History (Updated 12/08/24 @ 09:12 by Danielle Mixon) Tinnitus Wears glasses Cancer High cholesterol History of hiatal hernia CPAP (continuous positive airway pressure) dependence Non-smoker Leg cramps History of echocardiogram History of stress test Cardiology follow-up encounter Thyroid nodule Hyperlipidemia Hypothyroidism GERD (gastroesophageal reflux disease) Osteopenia Osteoarthritis Neuropathy Carpal tunnel syndrome Cataracts, bilateral Breast cancer Arthritis Seasonal allergies Home Medications ?Medication ?Instructions ?Recorded ?Last Taken ?Type calcium 500 mg (as 1 tab PO DAILY 09/22/22 Unkn own History carbonate)-vitamin D3 3.125 mcg (125 unit) tablet gabapentin 300 mg capsule 300 mg PO QHS 11/21/22 Unkno wn History famotidine 20 mg tablet 20 mg PO QHS #30 tabs Unknown Rx omeprazole 20 mg capsule,delayed 20 mg PO BID #60 caps 11/14/24 Unknown Rx release rosuvastatin 5 mg tablet 5 mg PO QDAY #30 tabs Unknown Rx calcium-magnesium 750 mg-465 mg 1 tab PO DAILY 5 Unknown History tablet magnesium carb,citrate,oxide 100 mg PO DAILY 12/08/24 Unknown History (Magnesium Complex) Allergy/AdvReac Type Severity Reaction Status Date / Time Iodinated Contrast Media Allergy Itching Verified 12/08/24 09:00 (Iodinated Contrast Media - IV Dye) Family History Mother Breast cancer Father Myocardial infarction, Onset Age: 42 Heart disease Hypertension High cholesterol Grandmother CVA (cerebral vascular accident) Sister Breast cancer Aunt Breast cancer Surgical History History of right knee joint replacement History of tonsillectomy History of surgery on right wrist History of bilateral carpal tunnel release History of foot surgery History of shoulder surgery H/O bilateral mastectomy History of hysterectomy Social History Smoking Status: Never smoker alcohol intake: current alcohol intake frequency: a few times a week substance use type: does not use caffeine: Yes Type: coffee Number of servings: 6 what type of physical activity do you participate in: none Audit: Pertinent Findings Pertinent Findings EKG Perinent findings: October 22, 2022. Sinus bradycardia within normal limits. Stress test pertinent findings: May 20, 2024. EF of 84%. No areas of reversibility are noted to suggest ischemia. No previous infarct. Echo (EF%) pertinent findings: November 13, 2022. EF of 60%. PASP is 27 mmHg. No aortic valve stenosis is noted. Consult pertinent findings: November 14, 2024. José IBANEZ. 1. Hyperlipidemia?chronic-patient has a 10-year risk score of 8.3%. Patient has an echo and stress test done previously. (See above) her coronary calcium score from 2023 was 0. Patient will focus on diet control. No medications at this time. Recommendation Anesthesia Recommendation Anesthesia recommendation: OPTIMIZED for anesthesia
[2024-12-09] VITALS (7 sets, daily range): BP systolic 94–142; BP diastolic 66–79; PULSE 18–81; RESP 16–20; TEMP 22.2–37; O2SAT 95–99; BMI 24.5
--- NOTE | 2024-12-09 11:03 | HP.PCM_ITS ---
HPI - General General Date of Admission: 12/09/24 Date of Service: 12/09/24 Chief Complaint: dysphagia HPI Narrative TARIK DUNHAM, is a 74 F who presents regarding concerns for difficulty swallowing. She states that she's been having swallowing trouble for over 20yrs. She had every swallowing test known to man 6 years ago and they couldn't find anything specific. She states that she took herself off of pantoprazole as she didn't notice a difference while on it. She reports that she has a globus sensation at the top of her throat but the food gets stuck at the lower esophagus. She reports the most recent episode was with a bite of hamburger. She does remember exactly how long it was stuck, but it felt like forever. She was unable to get liquids down past the food bolus. She reports that it did eventually pass on its own. She reports a frequent cough, throat clearing, increased sinus drainage, heartburn, and abdominal bloating. She denies food allergies and sensitivities, denies having asthma. She denies difficulty chew ing, nausea, emesis, reflux, constipation, diarrhea, hematochezia, and melena. ROS Const Constitutional: No chills, fatigue, fever(s) or weight change Eyes Eyes: No change in vision ENT ENT: Positive for difficulty swallowing; No abnormal hearing Resp Respiratory: Positive for cough Cardio Cardiology: No chest pain at rest, chest pain with exertion or leg pain with exertion Gastro GI: Positive for bloating, difficulty swallowing and excessive flatus; No abdominal pain, belching, change in bowel habits, change in stool character, coffee ground emesis, constipation, cramping, diarrhea, heartburn, feeling full early, incontinent of stools, Vomiting blood/hematemesis, Blood in stool, loose stools, Black,tarry stools, nausea/dyspepsia, pain with swallowing, vomiting or other Musc Musculoskeletal: Positive for joint pain, back pain, numbness, stiffness, tingling, Arthritis and sciatica; No leg pain with exertion Skin Skin: No yellowing of the eye or itchy eyes Neuro Neurology: Positive for numbness and tingling; No abnormal hearing Psych Psychiatric: No anxiety and No depression Endo Endocrine: No cold intolerance, fatigue, heat intolerance or weight change Aller/Imm Allergy/Immunologic: No food intolerance or itchy eyes Cal/Lymp Hematologic/Lymphatic: No easy bleeding or easy bruising Exam Const General: cooperative, healthy appearing, comfortable, no acute distress and well groomed Nutritional Appearance: average body habitus Orientation: alert and oriented x3 HENMT Head: normal to inspection Ears: hearing grossly normal bilaterally Eyes General: appearance normal, both eyes and all related structures Sclera: sclerae normal Neck Neck: normal visual inspection and full ROM Chest Chest palpation & inspection: normal inspection of the chest Resp Effort & Inspection: normal respiratory effort, able to speak in complete sentences and symmetric chest movement GI Inspection: normal to inspection Skin General: no rashes or lesions noted Neuro General: patient alert, patient oriented x3 and moves all extremities Cognition: normal cognition Speech: speech normal Gait: normal gait Extrem General: full ROM Psych Appearance: well kempt Mental Status: mental status grossly normal Mood: congruent mood Judgment: judgment good Assessment and Plan Assessment and Plan (1) Difficulty swallowing: Status: Acute Qualifiers: Dysphagia type: unspecified Qualified Code(s): R13.10 - Dysphagia, u nspecified (2) Throat clearing: Status: Acute (3) Globus sensation: Status: Acute Orders: Orders Swallowing Function w/Video Today R09.89 - Other specified symptoms and signs involving the circulatory and respiratory systems, R09.A2 - Foreign body sensation, throat, R13.10 - Dysphagia, unspecified Medications: New omeprazole Take 30minutes before eating breakfast and dinner. 20 mg PO BID 60 caps 2RF famotidine 20 mg PO QHS 30 tabs 0RF Plan TARIK DUNHAM, is a 74 F who presents to the office today for establishment with [facility] regarding concerns for difficulty swallowing. She states that she's been having swallowing trouble for over 20yrs. She had every swallowing test known to man 6 years ago and they couldn't find anything specific. She states that she took herself off of pantoprazole as she didn't notice a difference while on it. She reports that she has a globus sensation at the top of her throat but the food gets stuck at the lower esophagus. Discussed care plan with her. * change pantoprazole to omeprazole 20mg PO twice daily 30minutes before breakfast and dinner * add famotidine 20mg PO QHS * swallowing function w/video * esophageal manometry * schedule EGD * consider Botox v. amitriptyline v. diltiazem * office FU 1 wk after endoscopy [facility] Medical History Tinnitus Wears glasses Cancer High cholesterol History of hiatal hernia CPAP (continuous positive airway pressure) dependence Non-smoker Leg cramps History of echocardiogram History of stress test Cardiology follow-up encounter Thyroid nodule Hyperlipidemia Hypothyroidism GERD (gastroesophageal reflux disease) Osteopenia Osteoarthritis Neuropathy Carpal tunnel syndrome Cataracts, bilateral Breast cancer Arthritis Seasonal allergies Home Medications ?Medication ?Instructions ?Recorded ?Last Taken ?Type calcium 500 mg (as 1 tab PO DAILY 09/22/22 Unkn own History carbonate)-vitamin D3 3.125 mcg (125 unit) tablet gabapentin 300 mg capsule 300 mg PO QHS 11/21/22 Unkno wn History famotidine 20 mg tablet 20 mg PO QHS #30 tabs Unknown Rx omeprazole 20 mg capsule,delayed 20 mg PO BID #60 caps 11/14/24 Unknown Rx release rosuvastatin 5 mg tablet 5 mg PO QDAY #30 tabs Unknown Rx calcium-magnesium 750 mg-465 mg 1 tab PO DAILY 5 Unknown History tablet magnesium carb,citrate,oxide 100 mg PO DAILY 12/08/24 Unknown History (Magnesium Complex) Allergy/AdvReac Type Severity Reaction Status Date / Time Iodinated Contrast Media Allergy Itching Verified 12/09/24 11:01 (Iodinated Contrast Media - IV Dye) Family History Mother Breast cancer Father Myocardial infarction, Onset Age: 42 Heart disease Hypertension High cholesterol Grandmother CVA (cerebral vascular accident) Sister Breast cancer Aunt Breast cancer Surgical History History of right knee joint replacement History of tonsillectomy History of surgery on right wrist History of bilateral carpal tunnel release History of foot surgery History of shoulder surgery H/O bilateral mastectomy History of hysterectomy Social History Smoking Status: Never smoker alcohol intake: current alcohol intake frequency: a few times a week substance use type: does not use caffeine: Yes Type: coffee Number of servings: 6 what type of physical activity do you participate in: none ROS Constitutional Constitutional: Denies fatigue, fever(s), poor appetite, weight gain or weight loss Gastrointestinal Gastrointestinal: Denies belching, bloating, change in bowel habits, change in stool character, chewing difficulty, coffee ground emesis, constipation, cramping, diarrhea, dyspepsia, dysphagia, early satiety, excessive flatus, fecal incontinence, heartburn, hematemesis, hematochezia, hemorrhoids, loose stools, melena, nausea, odynophagia, rectal bleeding, tenesmus, vomiting or weight changes Physical Exam Const alert, oriented x3, no apparent distress and healthy appearing General Appearance: cooperative GI normal to inspection, nondistended, normoactive bowel sounds, soft to palpation, non-tender and non-distended Percussion: normal to percussion Rectal Exam: deferred Assessment & Plan Assessment/Plan (1) Globus sensation: (2) Chest pain: (3) Lymphadenopathy of left cervical region: (4) Difficulty swallowing: QUALIFIERS: Dysphagia type: unspecified Qualified Code(s): R13.10 - Dysphagia, unspecified PLAN: judgment good Assessment and Plan Assessment and Plan (1) Difficulty swallowing: Status: Acute Qualifiers: Dysphagia type: unspecified Qualified Code(s): R13.10 - Dysphagia, unspecified (2) Throat clearing: Status: Acute (3) Globus sensation: Status: Acute Orders: Orders Swallowing Function w/Video Today R09.89 - Other specified symptoms and signs involving the circulatory and respiratory systems, R09.A2 - Foreign body sensation, throat, R13.10 - Dysphagia, unspecified Medications: New omeprazole Take 30minutes before eating breakfast and dinner. 20 mg PO BID 60 caps 2RF famotidine 20 mg PO QHS 30 tabs 0RF Plan TARIK DUNHAM, is a 74 F who presents to the office today for establishment with [facility] regarding concerns for difficulty swallowing. She states that she's been having swallowing trouble for over 20yrs. She had every swallowing test known to man 6 years ago and they couldn't find anything specific. She states that she took herself off of pantoprazole as she didn't notice a difference while on it. She reports that she has a globus sensation at the top of her throat but the food gets stuck at the lower esophagus. Discussed care plan with her. * change pantoprazole to omeprazole 20mg PO twice daily 30minutes before breakfast and dinner * add famotidine 20mg PO QHS * swallowing function w/video * esophageal manometry * schedule EGD * consider Botox v. amitriptyline v. diltiazem * office FU 1 wk after endoscopy
[2024-12-09] MEDS: Lactated Ringers 1,000 ML 15 ML IV (11:06)
--- NOTE | 2024-12-09 11:30 | EGD_PTH ---
PATIENT: TARIK DUNHAM LOC: EN U#:[id number] AGE/SX: 74/F ROOM: RE12/09/[address]: Dr. Gomez Reynoso DO : 1950 BED: DIS: 12/09/2024 SPEC #: [id number] RECD: 12/09/24 12:49 STATUS: SHEREE REIvelisse #: [id number] JOSE: 12/09/24 11:[address]: Gomez Reynoso DEPT: SURGICAL PATHOLOGY RECD BY: Gerry Ellison ENTERED: 12/09/24 13:46 SP TYPE: EGD BIOPSY ONEAL DR: Dr. Garo Steele MD Tissues: A - Esophagus, NOS Procedures: Surgery Specimen Level IV HEADER OPERATION: EGD with biopsy, dilation PRE-OP DIAGNOSIS: Dysphagia TISSUE SUBMITTED: A- Distal esophagus biopsy MICROSCOPIC DIAGNOSIS A. Esophagus, distal, biopsy: - Squamous mucosa with mild reactive change. - Columnar mucosa with goblet cell metaplasia - see note. - Negative for dysplasia. Note: The diagnosis depends on the location of the biopsy and the extent of the mucosal irregularity. If the biopsy originates from the tubular esophagus and the mucosal irregularity extends at least 1 cm above the top of the gastric folds, this represents Harry mucosa. If the biopsy originates from the gastric cardia and/or the mucosal irregularity is less than 1 cm in extent, this represents intestinal metaplasia. MICROSCOPIC DESCRIPTION Slides are reviewed. GROSS DESCRIPTION A. Received in fixative is one container labeled with the patient's name and designated Distal esophagus biopsy. The specimen consists of multiple irregular fragments of light solomon soft tissue that in aggregate measure <0.1 to 0.7 cm. The specimen is totally submitted in one cassette. GA 12/09/2024 CPT:77689 ADDENDUM ADDENDUM ADDENDUM ADDENDUM ADDENDUM ADDENDUM ADDENDUM ADDENDUM ADDENDUM ADDENDUM ADDENDUM ADDENDUM ADDENDUM ADDENDUM 01/30/2025 16:26 ADDENDUM 01/30/2025 16:26 ADDENDUM 01/30/2025 16:26 ADDENDUM 01/30/2025 16:26 ADDENDUM 01/30/2025 16:26 This addendum is added to incorporate an outside pathology consultation report. - A1 The case was examined at [facility] and the following diagnosis was rendered. Tissue Cypher Risk Class and Risk Score: Risk Class: LOW Risk Score: 5.3 5-year probability of progression: 6% Please see complete above mentioned consultation report in EMR
--- NOTE | 2024-12-09 11:32 | PRE.ANES_ITS ---
ASA Classification* ASA Classification ASA Classification: 2 Assessment & Plan Anesthesia* Anesthesia Assessment Anesthesia Assessment: Discussed sedation and/or anesthesia options, risks, benefits, and alternatives with patient/parents/legal guardian/POA. Questions invited. The patient/parents/legal guardian/POA seems to understand and agrees to proceed with anesthesia plan. Reviewed the physical assessment, medical history, allergy history and patient home medications list prior to surgery/procedure/anesthetic and documented any changes. Performed airway and anesthesia risk assessments. Anesthesia Type Anesthesia Type: MAC History Source History Obtained from:: Patient and Chart Anesthesia Focused Assessment* Temperature: 98.6 F Pulse Rate: 63 Blood Pressure: 142/79 Respiratory Rate: 16 Pulse Ox: 98 Oxygen Delivery Method: Room Air Airway Assessment Mouth opens: >3 cm Mallampati Score: III Teeth Condition: Intact Neck Range of motion (ROM): Full ROM Labs Anesthesia Preop lab: CBC WBC 5.2 K/mm3 (4.4-11.0) 01/29/22 11:01 01/29/22 RBC 4.07 M/mm3 (4.2-5.4) L 01/29/22 11:01 01/29/22 Hgb 12.3 g/dL (12.0-15.0) 01/29/22 11:01 01/29/22 Hct 37.4 % (37-47) 01/29/22 11:01 01/29/22 Plt Count 288 K/mm3 (150-450) 01/29/22 11:01 01/29/22 CHEMISTRY Potassium 4.5 mmol/L (3.5-5.1) 01/29/22 11:01 01/29/22 Sodium 142 mmol/L (136-145) 01/29/22 11:01 01/29/22 BUN 15 mg/dL (7-18) 01/29/22 11:01 01/29/22 Creatinine 0.84 mg/dL (0.55-1.02) 01/29/22 11:01 01/29/22 Glucose 99 mg/dL (74-106) 01/29/22 11:01 01/29/22 TSH 3.40 uIU/mL (0.358-3.74) 01/29/22 11:01 COAG Pre-Assessment Diagnosis/Proposed Procedure Planned Operative Procedure(s): EGD Anesthesia History 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 When Was Last Pacemaker Check QUESTION #4 FULL TEXT: You/Your Family Experience fever (hyperthermia) with Anesthesia Last Oral Intake Last Oral intake: Last Oral Intake NPO since 06:30 12/09/24 11:02 Meds taken in AM with sips of No 12/09/24 11:02 water? Meds patient instructed to take am of surgery Any additional information?: Yes NPO since: 07:00 (Patient had black coffee at 7 AM.) Meds taken in AM with sips of water?: No PONV PONV - site reliability engineer: PONV - site reliability engineer Female Yes 12/08/24 09:04 HX of Motion Sickness No 12/08/24 09:04 HX of N/V After Surgery No 12/08/24 09:04 Non-Smoker Yes 12/08/24 09:04 Duration of Surgery greater No 12/08/24 09:04 than 60 minutes Number of Risk Factors 2 12/08/24 09:04 PONV Score Moderate Risk 12/08/24 09:04 Height & Weight Height & Weight: Anesthesia: Height & Weight Height 5 ft 5 in 12/09/24 11:02 Weight: 67 kg 12/09/24 11:02 Body Mass Index (BMI) 24.5 12/09/24 11:02 Respiratory Assessment Respiratory Assessment - site reliability engineer: Respiratory Tract Infection Hx - site reliability engineer Hx Respiratory Tract Infection No 12/08/24 09:04 STOP Sleep Apnea STOP Sleep Apnea - site reliability engineer: STOP Sleep Apnea - site reliability engineer Hx Hypertension No 12/08/24 09:04 Hx Sleep Apnea Yes 12/08/24 09:04 CPAP Yes 12/08/24 09:04 BIPAP No 12/08/24 09:04 Do you snore loudly (louder than talking or can be heard Do you often feel tired/ fatigued/ sleepy during daytime? Has anyone observed you stop breathing during sleep? STOP Results Positive 12/08/24 09:04 QUESTION #5 FULL TEXT : Do you snore loudly (louder than talking or can be heard through closed doors)? 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 Specify any problems Hx of Preganancy in last 3 N/A 12/08/24 09:04 Months Nurse Filling Out Transfusion NBUCHER 12/08/24 09:04 & Questions: Date: 12/08/24 12/08/24 09:04 Time: 09:06 12/08/24 09:04 Patient unable to answer at this time (ie. confused, unrespo /Reproduction History /Reproductive History - site reliability engineer: /Reproductive Hx- site reliability engineer Hx Now No 12/08/24 09:04 Gestational Age (in weeks): EDC: Hx Hx Para Hx Section SAB No 12/08/24 09:04 Active Medications Active Medications: Current Medications Generic Name Dose Route Start Last Admin Trade Name Freq PRN Reason Stop Dose Admin Lactated Ringer's 1,000 mls @ 15 mls/hr 12/09/24 10:45 12/09/24 11:06 IV 15 mls/hr .Q48H ISAAC Administration PFSH Medical History Tinnitus Wears glasses Cancer High cholesterol History of hiatal hernia CPAP (continuous positive airway pressure) dependence Non-smoker Leg cramps History of echocardiogram History of stress test Cardiology follow-up encounter Thyroid nodule Hyperlipidemia Hypothyroidism GERD (gastroesophageal reflux disease) Osteopenia Osteoarthritis Neuropathy Carpal tunnel syndrome Cataracts, bilateral Breast cancer Arthritis Seasonal allergies Home Medications ?Medication ?Instructions ?Recorded ?Last Taken ?Type calcium 500 mg (as 1 tab PO DAILY 09/22/22 Unkn own History carbonate)-vitamin D3 3.125 mcg (125 unit) tablet gabapentin 300 mg capsule 300 mg PO QHS 11/21/22 Unkno wn History famotidine 20 mg tablet 20 mg PO QHS #30 tabs Unknown Rx omeprazole 20 mg capsule,delayed 20 mg PO BID #60 caps 11/14/24 Unknown Rx release rosuvastatin 5 mg tablet 5 mg PO QDAY #30 tabs Unknown Rx calcium-magnesium 750 mg-465 mg 1 tab PO DAILY 5 Unknown History tablet magnesium carb,citrate,oxide 100 mg PO DAILY 12/08/24 Unknown History (Magnesium Complex) Allergy/AdvReac Type Severity Reaction Status Date / Time Iodinated Contrast Media Allergy Itching Verified 12/09/24 11:01 (Iodinated Contrast Media - IV Dye) Family History Mother Breast cancer Father Myocardial infarction, Onset Age: 42 Heart disease Hypertension High cholesterol Grandmother CVA (cerebral vascular accident) Sister Breast cancer Aunt Breast cancer Surgical History History of right knee joint replacement History of tonsillectomy History of surgery on right wrist History of bilateral carpal tunnel release History of foot surgery History of shoulder surgery H/O bilateral mastectomy History of hysterectomy Social History Smoking Status: Never smoker alcohol intake: current alcohol intake frequency: a few times a week substance use type: does not use caffeine: Yes Type: coffee Number of servings: 6 what type of physical activity do you participate in: none Review of Systems (Anesthesia) ROS Narrative System reviewed and no additional complaints, except as documented.
--- NOTE | 2024-12-09 12:11 | OP.CCLET_ITS ---
12/09/2024 Garo Steele [address] [place] [address] Re : Upper GI endoscopy procedure for Grazyna Sharpeerin Dear Dr. Steele This procedure was performed on Monday, December 09, 2024. My impressions and recommendations are as follows: Impressions : - LA Grade B reflux esophagitis with no bleeding. Biopsied. - Abnormal esophageal motility. - Moderate Schatzki ring. Dilated. - Medium-sized hiatal hernia. - No gross lesions in the second portion of the duodenum. Recommendations : - Discharge patient to home. - Resume previous diet. - Continue present medications. - Await pathology results. My findings are described in the full procedure note, which is enclosed. If I can be of further assistance, please feel free to contact me at . Sincerely, Gomez Reynoso, 12/09/2024 12:11:06 PM This report has been signed electronically.
--- NOTE | 2024-12-09 12:11 | OP.EGD_ITS ---
Patient Name: Grazyna Frances Procedure Date: 12/09/2024 11:41 AM Date of : 1950 Age: 74 Procedure: Upper GI endoscopy Indications: Dysphagia, Heartburn Providers: DO Krystal Tang MD: Garo Steele Medicines: Monitored Anesthesia Care Patient Profile: This is a 74 year old female. Refer to note in patient chart for documentation of history and physical. Patient has symptoms of dysphagia with solids, acute heartburn and chronic heartburn. Complications: No immediate complications. Procedure: Pre-Anesthesia Assessment: - Prior to the procedure, a History and Physical was performed, and patient medications and allergies were reviewed. The patient is competent. The risks and benefits of the procedure and the sedation options and risks were discussed with the patient. All questions were answered and informed consent was obtained. Patient identification and proposed procedure were verified by the physician in the pre-procedure area. Mental Status Examination: alert and oriented. Airway Examination: normal oropharyngeal airway and neck mobility. Respiratory Examination: clear to auscultation. CV Examination: normal. Prophylactic Antibiotics: The patient does not require prophylactic antibiotics. Prior Anticoagulants: The patient has taken no anticoagulant or antiplatelet agents except for NSAID medication. ASA Grade Assessment: II - A patient with mild systemic disease. After reviewing the risks and benefits, the patient was deemed in satisfactory condition to undergo the procedure. The anesthesia plan was to use monitored anesthesia care (MAC). Immediately prior to administration of medications, the patient was re-assessed for adequacy to receive sedatives. The heart rate, respiratory rate, oxygen saturations, blood pressure, adequacy of pulmonary ventilation, and response to care were monitored throughout the procedure. The physical status of the patient was re-assessed after the procedure. After obtaining informed consent, the endoscope was passed under direct vision. Throughout the procedure, the patient's blood pressure, pulse, and oxygen saturations were monitored continuously. The gastroscope was introduced through the mouth, and advanced to the second part of duodenum. The upper GI endoscopy was accomplished without difficulty. The patient tolerated the procedure well. Scope In: 11:58:50 AM Scope Out: 12:05:47 PM Total Procedure Duration Time 0 hours 6 minutes 57 seconds Findings: LA Grade B (one or more mucosal breaks greater than 5 mm, not extending between the tops of two mucosal folds) esophagitis with no bleeding was found 36 to 40 cm from the incisors. Biopsies were taken with a cold forceps for histology. Verification of patient identification for the specimen was done. Estimated blood loss was minimal. Abnormal motility was noted in the esophagus. The cricopharyngeus was abnormal. There are extra peristaltic waves in the esophageal body. The distal esophagus/lower esophageal sphincter is spastic, but gives up passage to the endoscope. Tertiary peristaltic waves are noted. A moderate Schatzki ring was found at the gastroesophageal junction. A guidewire was placed and the scope was withdrawn. Dilation was performed with a Savary dilator with no resistance at 57 Fr. The dilation site was examined and showed moderate improvement in luminal narrowing. Estimated blood loss was minimal. A medium-sized hiatal hernia was present. No other significant abnormalities were identified in a careful examination of the stomach. No gross lesions were noted in the second portion of the duodenum. Impression: - LA Grade B reflux esophagitis with no bleeding. Biopsied. - Abnormal esophageal motility. - Moderate Schatzki ring. Dilated. - Medium-sized hiatal hernia. - No gross lesions in the second portion of the duodenum. Recommendation: - Discharge patient to home. - Resume previous diet. - Continue present medications. - Await pathology results. Procedure Code(s): --- Professional --- 47108, Esophagogastroduodenoscopy, flexible, transoral; with insertion of guide wire followed by passage of dilator(s) through esophagus over guide wire 72256, 59,51, Esophagogastroduodenoscopy, flexible, transoral; with biopsy, single or multiple CPT copyright 2021 [employer]. All rights reserved. The codes documented in this report are preliminary and upon insurance claim auditor review may be revised to meet current compliance requirements. Gomez Reynoso DO 12/09/2024 12:11:06 PM This report has been signed electronically. Number of Addenda: 0 Note Initiated On: 12/09/2024 11:41 AM
--- NOTE | 2024-12-09 12:15 | PCM.POST.ANE ---
Anesthesia: Postop Eval I Current Vital Signs Temperature: 98.1 F Pulse Rate: 79 Blood Pressure: 100/78 Respiratory Rate: 20 Pulse Ox: 98 Assessment Airway patent: Yes Spontaneous unlabored respirations: Yes nausea: No Vomiting: No Anesthesia Complication: No Fluid Hydration Crystalloid volume administer (ml): 500 Total IV fluid infused: 500 Progress Note Anesthesia document: Postop Eval 1 completed: Yes
--- NOTE | 2024-12-09 15:10 | POSTOPAN2_ITS ---
Anesthesia Postop Eval I Sum Postop Eval Completion status Anesthesia document: Postop Eval 1 completed: Yes Anesthesia Postop Eval I Summary Anesthesia Postop Eval I Summary: Anesthesia Postop Eval I: Assessment Summary Airway patent Yes 12/09/24 12:15 [employer]CS[employer] Spontaneous unlabored Yes 12/09/24 12:15 [employer]CS[employer] respirations Mental status nausea No 12/09/24 12:15 [employer] Vomiting No 12/09/24 12:15 [employer]CSIR Anesthesia Postop Eval I: Fluid Summary Crystalloid volume administer 500 12/09/24 12:15 [employer]CSIR (ml) Colloids volume administered ( ml) Blood Product volume administered (ml) Total IV fluid infused 500 12/09/24 12:15 [employer]CSIR Anesthesia Postop Eval I: Summary Notes Anesthesia Complication No 12/09/24 12:15 [employer]CSIR Anesthesia Complication Comment: Post-operative progress note Anesthesia: Postop Eval II Evaluation Mental status: Awake Pain Level: 0 nausea: No Vomiting: No
--- NOTE | 2024-12-09 15:10 | PCM.POSTANE2 ---
Anesthesia Postop Eval I Sum Postop Eval Completion status Anesthesia document: Postop Eval 1 completed: Yes Anesthesia Postop Eval I Summary Anesthesia Postop Eval I Summary: Anesthesia Postop Eval I: Assessment Summary Airway patent Yes 12/09/24 12:15 [employer]CS[employer] Spontaneous unlabored Yes 12/09/24 12:15 [employer] respirations Mental status nausea No 12/09/24 12:15 [employer] Vomiting No 12/09/24 12:15 [employer]CSIR Anesthesia Postop Eval I: Fluid Summary Crystalloid volume administer 500 12/09/24 12:15 [employer]CSIR (ml) Colloids volume administered ( ml) Blood Product volume administered (ml) Total IV fluid infused 500 12/09/24 12:15 [employer].CSIR Anesthesia Postop Eval I: Summary Notes Anesthesia Complication No 12/09/24 12:15 [employer]CSIR Anesthesia Complication Comment: Post-operative progress note Anesthesia: Postop Eval II Evaluation Mental status: Awake Pain Level: 0 nausea: No Vomiting: No
== END 2024-12-09 12:47 | disposition home or self-care (01) ==
LOC: EN 10:27 → AC 10:28
PROVIDERS: PCP Internal Medicine; Referring Provider Internal Medicine; Visit Provider Internal Medicine Gastroenterology
PROC: 0DJ08ZZ Inspection of Upper Intestinal Tract, Via Natural or Artificial Opening Endoscopic (ICD-10-PCS; CPT 43235; principal; 2024-12-09 11:25)
DX: R13.10 Dysphagia, unspecified (principal); K44.9 Diaphragmatic hernia without obstruction or gangrene; K21.00 Gastro-esophageal reflux disease with esophagitis, without bleeding; R59.0 Localized enlarged lymph nodes; E78.00 Pure hypercholesterolemia, unspecified; R07.9 Chest pain, unspecified; R09.89 Other specified symptoms and signs involving the circulatory and respiratory systems; R09.A2 Foreign body sensation, throat; Z85.3 Personal history of malignant neoplasm of breast; Z79.899 Other long term (current) drug therapy; Z96.651 Presence of right artificial knee joint; Z90.13 Acquired absence of bilateral breasts and nipples; Z90.710 Acquired absence of both cervix and uterus; K22.4 Dyskinesia of esophagus; K22.2 Esophageal obstruction
CPT/HCPCS: 43248; 43239; 88305; C1769; J2405

== ENCOUNTER 2024-12-12 10:00 | Outpatient (RCR) | payer MEDICARE, SELFPAY ==
--- NOTE | 2024-10-25 10:57 | HP.PTEVAL ---
Patient's Visit Information Visit Information Visit Information: TARIK DUNHAM is a 74 year old F referred to Physical Therapy by Dr. Garo Steele MD with a diagnosis of Unilateral L hip OA. Date of Evaluation: 10/25/24 Physical Therapist: WATSON Meneses Visit Plan Frequency: 2x /Week Duration: 6 Weeks Plan: 2X/ week for 6 weeks for neutral spine core stability, LE strength (to be able to go up steps easier and get self off the ground easier), Hip flexor stretching, functional transfers, with HEP and indep gym routine HEP: bridges and supine off the side Harvinder stretch Subjective Subjective: She has L hip pain for 6-8 months. She is bone on bone. Her L hip is getting worse. She has arthritis in her B shoulders but her L is worse than the R. She is not ready to do a hip replacement and she is limited if she can get down to the floor but can not get back up. She loses her balance easy. She has not fallen. Stairs: she can do stairs up and down recip but has to be careful. If she turns the wrong way she will get a catch in her hip and pain is up her cheek and down her L lateral leg pain and groin pain. She has tingling in her R knee and foot from nerve block. She also has some back pain. She has to sleep on the L side but she has increase pain and wakes up with pain. She gets about 6 hours of sleep. She has a lift now in her L shoe but not sure it helps. Pain L hip pain: Pain Intensity (Out of 10): 5 Objective Objective: Gait: walks with decrease stance time on the L LE. small cautious steps LE MMT: R hip flex 9.8 and L 8.3 R knee ext 26.1 and L 14.1 R knee flex 12.8 and L 9,4 R hip abd 9.2 and L 13.3 Bridges: full bridge with no pain FGA: 19 (worse with horizontal head turns with increased veering) Stairs: Going up the steps she struggled with strength and stiffness descending steps (used a hand railing) SLR on the R increased L sided back pain. Good overall HS length Tight R hip flexor and tight on the L too but had increase pain in the groin Balance/Special Test Scores Functional Gait Assessment Score: 19 % Disability: 36.6700 Lower Extremity Functional Score: 46 Goals Goal 1:: I HEP Goal Time Frame: 6-8 Weeks Goal 2:: BE ABLE TO GET UP FROM THE FLOOR WITH USING HER LEGS ONLY TO GET UP Goal Time Frame: 6-8 Weeks Goal 3:: Decrease L hip overall pain Goal Time Frame: 6-8 Weeks Goal 4:: Increase balance (FGA at eval was 19) (worse with horizontal head turns, walking BW, walking with EC) Goal Time Frame: 6-8 Weeks Rehabilitation Potential Rehabilitation Potential: Good Anticipated Interventions Patient/Client Instruction: Educate patient on: Condition and Plan of Care For the Purpose of:: To decrease pain, To increase ROM, To improve nutrient delivery to tissue, To increase oxygenation perfusion, To improve muscle performance and motor function, To improve ability to perform ADL's, To increase tolerance to activity/condition/position, To improve performance and independence with ADL's, To decrease level of supervision to perform tasks, To improve ability of physical actions for home/community/work/leisure, To improve gait and locomotor functions, To improve health of tissue, To decrease soft tissue restriction, To increase flexibility/ROM, To improve balance and To improve safety with gait Therapeutic Exercise to Include: Strength training, Endurance training, Balance training, Coordination, Body mechanics, Postural training, Flexibilty training, Gait and locomotor training, Neuromotor development, Active ROM and Dynamic Lumbar Stabilization For the Purpose of:: To decrease pain, To increase ROM, To improve nutrient delivery to tissue, To increase oxygenation perfusion, To improve muscle performance and motor function, To improve ability to perform ADL's, To increase tolerance to activity/condition/position, To improve performance and independence with ADL's, To decrease level of supervision to perform tasks, To improve ability of physical actions for home/community/work/leisure, To improve gait and locomotor functions, To improve health of tissue, To decrease soft tissue restriction, To increase flexibility/ROM, To improve endurance, To improve balance and To improve safety with gait Functional Training to Include: Gait training For the Purpose of:: To improve gait and locomotor functions and To improve safety with gait Text: Thank you for the opportunity to evaluate your patient. For Medicare and Medicare HMO plans, please review the plan of care and approve it. It will need to be FAXED BACK to us at [phone] for Medicare purposes. For Medicare only, by signing this I certify the plan of care. Please let me know if there are questions or concerns regarding this plan of care. Physician Signature: Date:
--- NOTE | 2024-12-12 10:52 | HP.PTDCSUM ---
Discharge Summary D/C summary: It has been my pleasure to treat TARIK DUNHAM referred by Dr. Garo Steele MD, with the diagnosis of Unilateral L hip OA for a total of 8 visit(s). Discharge Date: 12/12/24 Please see the following information for a summary of their discharge status. Subjective Subjective: Pt thinks that some of her leg pain is coming from the DDD in her hip. She is just not sure. She has not gotten stronger and she still gets the catches when she turns the wrong way. I hurt all over. Will make an appt with her Dr. Pain L hip pain: Pain Intensity (Out of 10): 5 Overall Improvement % Improvement: 0 Objective Objective/Function: Pt walks with decrease stance time on the L LE and increase veering at times. Goals Goal 1:: I HEP Goal 2:: BE ABLE TO GET UP FROM THE FLOOR WITH USING HER LEGS ONLY TO GET UP Goal Progress: Not Progressing Goal 3:: Decrease L hip overall pain Goal Progress: Not Progressing Goal 4:: Increase balance (FGA at eval was 19) (worse with horizontal head turns, walking BW, walking with EC) Goal Progress: Not Progressing Plan Plan: 2X/ week for 6 weeks for neutral spine core stability, LE strength (to be able to go up steps easier and get self off the ground easier), Hip flexor stretching, functional transfers, with HEP and indep gym routine. HEP: bridges and supine off the side Harvinder stretch D/C Information Discharge Comments: DC PT back to d/c sentence: If there are questions or concerns regarding this patient's physical therapy, please feel free to call me at [phone]. Thank you for the referral of this patient. Sincerely, Anel Blanco, MPT Balance/Gait/Functional tests Balance/Special Test Scores Functional Gait Assessment Score: 19 % Disability: 36.6700 Lower Extremity Functional Score: 36 Improvement % Improvement: 0
== END 2024-12-12 19:00 | disposition home or self-care (01) ==
LOC: PT 10:00
PROVIDERS: PCP Internal Medicine; Referring Provider Internal Medicine; Visit Provider Internal Medicine
DX: M16.12 Unilateral primary osteoarthritis, left hip (principal)
CPT/HCPCS: 97110; 97161; 97530

== ENCOUNTER → 2024-12-29 | Outpatient (CLI) | payer MEDICARE, SELFPAY ==
--- NOTE | 2024-12-29 12:55 | SP.MBSS_ITS ---
Modified Barium Swallow Patient Information Study Date: 12/29/24 Study Time: 13:00 Direct Billable Minutes: 78 Total Minutes procedure & reportin Diagnosis: Dysphagia R13.10 Referring Physician: Le Harris Reason for Referral: Assess swallow function, assess risk for aspiration, and determine recommendations for least restrictive diet textures and compensatory strategies to improve safety of swallow. Medical History: Pt was referred from GI for swallowing difficulty characterized by food and drink feeling caught in her lower esophagus, including painful episode ~1 month ago w/ hamburger. Liquid wash does not typically help, but waiting and relaxing will help foods to clear. She reports sometimes coughing due to sensation of food being caught chest-level in her esophagus. She denies sensation of food/drink going down the wrong way. No hx of PNA. Her swallowing difficulty occurs daily. EGD 12/09/2024 ??- LA Grade B reflux esophagitis with no bleeding. Biopsied. - Abnormal esophageal motility. - Moderate Schatzki ring. Dilated. - Medium-sized hiatal hernia. - No gross lesions in the second portion of the duodenum.? 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 Current Diet Ordered: Regular textures / Thin liquids Dentition: Natural Teeth Mental Status: WNL Respiratory Status: Oxygenating on Room Air Penetration-Aspiration Scale Penetration-Aspiration Scale: OBJECTIVE ASSESSMENT OF SWALLOW FUNCTION (QUANTITATIVE ? PER TRIAL): PENETRATION / ASPIRATION SCALE (WREN): 1 = does not enter airway 2 = enters airway/above vocal folds/ejected 3 = enters airway/above vocal folds/not ejected 4 = enters airway/contacts vocal folds/ejected 5 = enters airway/contacts vocal folds/not ejected 6 = enters airway/below vocal folds/ejected 7 = enters airway/below vocal folds/not ejected despite effort 8 = enters airway/below vocal folds/no effort VIDEOFLOROSCOPIC SCALE SCORE (WREN): Grade I = aspiration of material that has penetrated into the laryngeal vestibule, intact cough reflex Grade II = aspiration < 10 % of the bolus, intact cough reflex Grade III = aspiration of < 10 % of the bolus, reduced cough reflex or aspiration of > 10 % of the bolus, intact cough reflex Grade IV = aspiration of > 10 % of the bolus, reduced cough reflex Penetration-Aspiration Scale Score Thin Liquid via teaspoon: Result: 1= does not enter airway Thin Liquid via teaspoon Trial 2: Result: 1= does not enter airway Thin Liquid via small single sip: cup: Result: 1= does not enter airway Thin Liquid via sequential sips: cup: Result: 1= does not enter airway Comment: Esophageal screen - Retention in the middle and lower esophagus w/ retrograde flow. Pudding via teaspoon: Result: 1= does not enter airway Comment: Esophageal screen - Retention in the lower esophagus w/ retrograde flow to the middle esophagus. 1/2 Cookie: Result: 1= does not enter airway Comment: Esophageal screen - Retention in the lower esophagus. Thin Liquid via single sip: straw: Result: 1= does not enter airway Comment: Esophageal screen - Liquid wash mostly cleared barium through the LES. Barium Tablet - Water: Result: 1= does not enter airway Comment: Esophageal screen - Complete clearance. Oral Phase Labial Seal: No Labial Escape Tongue Control During Bolus Hold: Posterior escape of less than half of bolus Bolus Preparation/Mastication: Timely and efficient chewing and mashing Bolus Transport/Lingual Motion: Brisk tongue motion Oral Residue: Residue collection on oral structures Pharyngeal Phase Initiation of Pharyngeal Swallow: Bolus head in pyriforms Soft Palate Elevation: Trace column of contrast/air between soft palate and pharyngeal wall Laryngeal Elevation: Comp. Superior move thyroid cart w/comp. apprx arytenoid cart-epig pet Anterior Hyoid Excursion: Partial anterior movement Epiglottic Movement: Complete inversion Laryngeal Vestibule Closure at Height of Swallow: Complete; no air/contrast in laryngeal vestibule Pharyngeal Stripping Wave: Present - diminished Pharyngoesophageal Segment Opening: Complete distension and complete duration; no obstruction of flow Tongue Base Retraction: Narrow column of contrast between tongue base & post. pharyngeal wall Pharyngeal Residue: Collection of residue within or on pharyngeal structures Esophageal Phase Esophageal Clearance: Esophageal retention w/ retrograde flow below pharyngoesophageal seg. Diagnosis/Impression Diagnosis: Esophageal dysphagia R13.14; Mild pharyngeal dysphagia R13.13 Impression: The oral phase is grossly WNL. Posterior loss of <1/2 of large thin liquids to the pyriforms. Mild oral residue of pudding that fully cleared w/ a second swallow. The pharyngeal phase is marked by... -Mild delay in swallow onset w/ large liquid sips. -Mildly decreased pharyngeal motility w/ liquid sips due to decreased TB retraction and pharyngeal stripping wave resulting in mild pharyngeal residues. The esophageal phase is marked by... -Retention of sequential sips of liquids in the middle and lower esophagus w/ retrograde flow. -Retention of pudding in the lower esophagus w/ retrograde flow to the middle esophagus. -Retention of cookie in the lower esophagus, which mostly cleared w/ liquid wash. Recommendations Diet: Regular Textures and Thin Liquids Compensatory Strategies: Small Bites, Small Sips, Slow Rate (Bites/sips one at a time), Alternate bites/solids and sips/liquids (1:1 ratio) and Sitting upright (60 min after po intake) Recommend Repeat Modified Barium Swallow: No Need for Skilled Speech Therapy Services: Yes Comment: Train pt in lifestyle GERD management strategies. Train pt in pharyngeal exercise program to improve swallow onset and pharyngeal motility (xiao Lancaster Mendelsohn). Status Active ST Patient: Active Contact Information [facility] Speech Therapy:: Sherrell Black M.A. CCC-HAND RIGGER? Speech-Language Pathologist?? [facility] [address] [place] [address]? [email or web address]?? [phone]
== END | disposition home or self-care (01) ==
LOC: RAD 12:52
PROVIDERS: PCP Internal Medicine
DX: R09.89 Other specified symptoms and signs involving the circulatory and respiratory systems (principal); R13.10 Dysphagia, unspecified; R09.A2 Foreign body sensation, throat
CPT/HCPCS: 74230; 92611

== ENCOUNTER 2025-03-14 05:59 | Day surgery (SDC) | payer MEDICARE, SELFPAY ==
--- NOTE | 2025-02-28 09:12 | PAT.ANE_ITS ---
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 When Was Last Pacemaker Check QUESTION #4 FULL TEXT: You/Your Family Experience fever (hyperthermia) with Anesthesia Last Oral Intake Last Oral intake: Last Oral Intake NPO since Meds taken in AM with sips of water? Meds patient instructed to take am of surgery PONV PONV - police lieutenant: PONV - police lieutenant Female Yes 02/28/25 08:58 HX of Motion Sickness No 02/28/25 08:58 HX of N/V After Surgery No 02/28/25 08:58 Non-Smoker Yes 02/28/25 08:58 Duration of Surgery greater No 02/28/25 08:58 than 60 minutes Number of Risk Factors 2 02/28/25 08:58 PONV Score Moderate Risk 02/28/25 08:58 Height & Weight Height & Weight: Anesthesia: Height & Weight Height 5 ft 5 in 12/09/24 11:02 Respiratory Assessment Respiratory Assessment - police lieutenant: Respiratory Tract Infection Hx - police lieutenant Hx Respiratory Tract Infection No 02/28/25 08:58 STOP Sleep Apnea STOP Sleep Apnea - police lieutenant: STOP Sleep Apnea - police lieutenant Hx Hypertension No 02/28/25 08:58 Hx Sleep Apnea Yes 02/28/25 08:58 CPAP Yes 02/28/25 08:58 BIPAP No 02/28/25 08:58 Do you snore loudly (louder than talking or can be heard Do you often feel tired/ fatigued/ sleepy during daytime? Has anyone observed you stop breathing during sleep? STOP Results Positive 02/28/25 08:58 QUESTION #5 FULL TEXT : Do you snore loudly (louder than talking or can be heard through closed doors)? 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 Specify any problems Hx of Preganancy in last 3 No 02/28/25 08:58 Months Nurse Filling Out Transfusion DSCHRIBER 02/28/25 08:58 & Questions: Date: 02/28/25 02/28/25 08:58 Time: 08:59 02/28/25 08:58 Patient unable to answer at this time (ie. confused, unrespo /Reproduction History /Reproductive History - police lieutenant: /Reproductive Hx- police lieutenant Hx Now No 02/28/25 08:58 Gestational Age (in weeks): EDC: Hx Hx Para Hx Section SAB No 02/28/25 08:58 PFS Medical History (Updated 02/28/25 @ 09:05 by Luna Gomez) History of Harry's esophagus Back problem Tinnitus Wears glasses Cancer High cholesterol History of hiatal hernia CPAP (continuous positive airway pressure) dependence Non-smoker Leg cramps History of echocardiogram History of stress test Cardiology follow-up encounter Hyperlipidemia Hypothyroidism GERD (gastroesophageal reflux disease) Osteopenia Osteoarthritis Neuropathy Breast cancer Arthritis Home Medications ?Medication ?Instructions ?Recorded ?Last Taken ?Type calcium-magnesium 750 mg-465 mg 1 tab PO DAILY 5 Unknown History tablet magnesium carb,citrate,oxide 100 mg PO DAILY 12/08/24 Unknown History (Magnesium Complex) ezetimibe 10 mg tablet (Zetia) 10 mg PO QDAY #30 tabs 12/20/24 Unknown Rx famotidine 20 mg tablet 20 mg PO QHS #90 tabs Unknown Rx esomeprazole magnesium 40 mg 40 mg PO QDAY #90 caps Unknown Rx capsule,delayed release Allergy/AdvReac Type Severity Reaction Status Date / Time Iodinated Contrast Media Allergy Itching Verified 02/28/25 08:54 (Iodinated Contrast Media - IV Dye) rosuvastatin AdvReac Myalgia Verified 02/28/25 08:54 Family History Mother Breast cancer Father Myocardial infarction, Onset Age: 42 Heart disease Hypertension High cholesterol Grandmother CVA (cerebral vascular accident) Sister Breast cancer Aunt Breast cancer Surgical History (Updated 02/28/25 @ 09:05 by Luna Gomez) Hx of colonoscopy History of esophagogastroduodenoscopy (EGD) Hx of right cataract extraction Hx of left cataract extraction History of right knee joint replacement History of tonsillectomy History of surgery on right wrist History of bilateral carpal tunnel release History of foot surgery History of shoulder surgery H/O bilateral mastectomy History of hysterectomy Social History Smoking Status: Never smoker alcohol intake: current alcohol intake frequency: a few times a week substance use type: does not use caffeine: Yes Type: coffee Number of servings: 6 what type of physical activity do you participate in: none additional social history: pt denies vaping, denies marijuana use, denies edibles pt denies blood clots Audit: Pertinent Findings Pertinent Findings EKG Perinent findings: 10/22/2022. Sinus bradycardia within normal limits. Stress test pertinent findings: 05/20/2024. EF of 84%. No areas of reversibility are noted to suggest ischemia. No previous infarct. Echo (EF%) pertinent findings: 11/13/2022. EF of 60%. PASP is 27 mmHg. No aortic valve stenosis is noted. Consult pertinent findings: November 14, 2024. José IBANEZ. 1. Hyperlipidemia-history of. 10-year risk score is 8.3%. Last echo had a EF of 60%. Last stress had no ischemia. Patient wants to try diet before starting statin therapy. Her coronary calcium score from 2023 was 0. Recommendation Anesthesia Recommendation Anesthesia recommendation: OPTIMIZED for anesthesia
--- OUTSIDE RECORDS SUMMARY | 2025-03-02 10:52 | XMS RPT_ITS ---
Author Name Auto Generated Organization OH[facility] Care Team Providers Care Planning Intern Name Role Phone JAYLAN GAN Attending Unavailable JAYLAN GAN Referring Unavailable GARO ELKINS Primary Care Unavailable ALTAF METZ Attending Unavailable JAYLAN GAN Referring Unavailable GARO ELKINS Primary Care Unavailable ALTAF METZ Attending Unavailable SEVERO, GARO Primary Care Unavailable KYM STONE Attending Unavailable SELF Referring Unavailable SEVERO, GARO Yanez Primary Care Unavailable SEVERO, GARO Yanez Attending Unavailable SEVERO, GARO Yanez Primary Care Unavailable SEVERO, GARO Yanez Attending Unavailable SEVERO, LEOPOLDO Primary Care Unavailable ELKINS, LEOPOLDO Primary Care Unavailable ELKINS, LEOPOLDO Referring Unavailable LASHAUN KIM Attending Unavailable SEVERO, LEOPOLDO Primary Care Unavailable ELKINS, LEOPOLDO Referring Unavailable SEVERO, GARO Yanez Primary Care Unavailable SEVERO, GARO Yanez Primary Care Unavailable SEVERO, GARO Yanez Referring Unavailable PROBLEMS DATE TYPE CONDITION / CODE ATTENDING STATUS [facility] 07/01/2023 Active Hyperlipidemia, unspecified hyperlipidemia type / E78.5(ICD-10) KYM STONE [facility] 06/23/2005 Active Gastroesophageal reflux disease, unspecified whether esophagitis present / K21.9(ICD-10) [facility] 03/02/2025 Active Esophageal dysph agia / R13.19(ICD-10) [facility] Active [facility] 03/02/2025 Active Hiatal hernia / K44.9(ICD-10) [facility] 03/02/2025 Active Harry's esopha taisha without dysplasia / K22.70(ICD-10) [facility] 11/18/2018 Active H/O bilateral mastectomy / Z90.13(ICD-10) LASHAUN KIM Active [facility] 10/28/2024 Active Ductal carcinoma in situ (DCIS) of right breast / D05.11(ICD-10) LASHAUN KIM Active [facility] 10/13/2024 Active Unilateral prima ry osteoarthritis, left hip / M16.12(ICD-10) GARO ELKINS Active [facility] 12/29/2022 Active Primary osteoart hritis of right knee / M17.11(ICD-10) GARO ELKINS Active [facility] 06/27/2022 Active Neuropathic pain , leg, right / M79.2(ICD-10) GARO ELKINS Active [facility] 10/13/2024 Active Chronic pain of both shoulders / M25.511(ICD-10) GARO ELKINS Active [facility] 10/13/2024 Active Chronic pain of both shoulders / G89.29(ICD-10) GARO ELKINS Active [facility] 10/13/2024 Active Chronic pain of both shoulders / M25.512(ICD-10) GARO ELKINS Active [facility] 10/13/2024 Active Carpal tunnel sy ndrome on right / G56.01(ICD-10) GARO ELKINS Active [facility] 04/15/2024 Active Medicare annual wellness visit, subsequent / Z00.00(ICD-10) SEVEROGARO Active [facility] 04/15/2024 Active Contusion of lef t chest wall, subsequent encounter / S20.212D(ICD-10) SEVEROGARO Active [facility] 04/15/2024 Active Contusion of lef t shoulder, subsequent encounter / S40.012D(ICD-10) SEVERO AGRO Yanez Active [facility] 04/15/2024 Active Closed head inju ry, subsequent encounter / S09.90XD(ICD-10) SEVERO GARO Yaenz Active [facility] 04/15/2024 Active Fall, subsequent encounter / W19.XXXD(ICD-10) SEVERO GARO Yanez Active [facility] 04/15/2024 Active Chest pain, unspecified type / R07.9(ICD-10) SEVERO GARO Yanez Active [facility] 04/15/2024 Active Screening for depression / Z13.31(ICD-10) SEVERO GARO Yanez Active [facility] 04/15/2024 Active Encounter for screening examination for other mental health and behavioral disorders / Z13.39(ICD-10) SEVERO GARO Yanez Active [facility] 03/30/2024 Admitting Diagnosis Pain in left hip / M25.552(ICD-10) ALTAF METZ Active [facility] 03/30/2024 Admitting Diagnosis Presence of right artificial knee joint / Z96.651(ICD-10) JAYLAN GAN Active [facility] PROCEDURES No Procedure Records Found RESULTS PROGRESS Observed: 03/02/2025 11:56 AM Status: COMPLETED Source: [facility] HNO ID: [id number] Author: ?, ?, ? Service: ? Author Type: ? Type: Progress Notes Filed: 03/02/2025 11:59 Note Text: russell CHAVES Observed: 03/02/2025 11:30 AM Status: COMPLETED Source: [facility] Office Visit (AGGENS4) GRAZYNA DUNHAM ([id number]) 1950 F Date Time Provider Department 03/02/25 11:30 AM KYM STONE AGG[facility]4 During your visit today, we recorded the following information about you: Pulse Blood pressure Weight Height 61/minute 106/70 67.7 kg 1.676 m Kym Stone MD 03/02/2025 11:52 AM Signed SURGICAL SERVICES HISTORY AND PHYSICAL EXAMINATION SERVICE DATE: 03/02/2025 SERVICE TIME: 11:08 AM PRIMARY CARE PHYSICIAN: Garo Elkins MD SUBJECTIVE CHIEF COMPLAINT: wants a second opinion HISTORY OF PRESENT ILLNESS: Mrs. Dunham is a 74 year old female with a PMH of breast CA (s/p mastectomy w/ reconstruction), GERD, hiatal hernia, dysphagia, HLD, osteopenia, OA, Harry's esophagus who presents for surgical consultation. Surgical consultation was requested by the patient's referring physician, Dr. Garo Wilcox MD. A copy of this consultation note will be provided to the requesting physician(s) by way of shared medical record or letter via US mail. The patient reports that she has been dealing with acid reflux for about 40 years. Years ago she was on a PPI for 6-7 years. When she moved back to [place] 5 years ago her symptoms of GERD became much worse with post-prandial acid reflux, vocal hoarseness developed, and she also experiences chest discomfort, chest pressure, and difficulty swallowing. Her goal is to feel better. After esophageal dilation in November she did experience some relief of dysphagia, but still has some difficulty swallowing. She is currently on Esomeprazole 40 mg BID and Pepcid 20 mg at HS and PRN Tums. When she takes this medication she has symptom control for several hours, but hours later may develop symptoms again. If she does not take the medication she experiences even more severe symptoms. She endorses nocturnal symptoms of chest pain, substernal burning. She was on baclofen and diltiazem for esophageal issues for some time, but stopped due to not believing it helped her symptoms. She denies use of NSAIDs frequently. She denies use of muscle relaxants. She denies a nickel allergy. Workup: all below workup is from scanned documents from OSH - EGD (12/09/24): LA Grade B reflux esophagitis. No bleeding. Moderate Schatzki ring. Dilated. Medium sized hiatal hernia. - Biopsy: distal esophagus with squamous mucosa with mild reactive change. Columnar mucosa with goblet cell metaplasia - MBS (12/29/24): recommend regular diet and consistency - CT chest (02/06/23) no acute process. External imaging - Mano - was not able to tolerate the testing Social: denies nicotine or MJ use; 3 etoh beverages per week PSHx: CTR, PHANI with colpopexy and rectopexy, bilateral mastectomy with reconstruction, various ortho procedures PAST MEDICAL HISTORY: PAST MEDICAL HISTORY Diagnosis Date Acute gastritis without mention of hemorrhage 08/05/2005 Breast cancer (HCC) 2016 Carpal tunnel syndrome, right 07/23/2017 Closed pelvic fracture (HCC) 1979 fall from roof, pelvic ring fractures Diverticulosis of colon (without mention of hemorrhage) Dysphagia Esophageal reflux Fracture, ribs 12/2013 4 cracked ribs Generalized osteoarthrosis, involving multiple sites Hallux rigidus 05/09/2013 Hyperlipidemia Internal hemorrhoids without mention of complication Mild memory disturbance 06/27/2022 Multiple thyroid nodules 12/29/2022 Osteopenia of multiple sites 01/27/2006 Other low back pain 09/20/2021 Primary osteoarthritis of right knee 12/29/2022 Radiculopathy, cervical region 08/24/2015 Spondylosis of unspecified site without mention of myelopathy Unilateral primary osteoarthritis, left hip 03/30/2024 PAST SURGICAL HISTORY: PAST SURGICAL HISTORY Procedure Laterality Date BREAST RECONSTRUCTION 01/2022 [facility] CARPAL TUNNEL 2018 right COLONOSCOPY FLX DX W/COLLJ SPEC WHEN PFRMD 06/11/2004 Colonoscopy COLPOPEXY VAGINAL INTRAPERITONEAL APPROACH 12/22/2013 USLF EGD TRANSORAL BIOPSY SINGLE/MULTIPLE 08/05/2005 MASTECTOMY HX Bilateral 01/2016 s/p bilateral mastectomy with bilateral implants placed at same time PAST SURGICAL HISTORY OF 1999 right shoulder, labrum repair PAST SURGICAL HISTORY OF Right 2019 foot surgery pin removed PAST SURGICAL HISTORY OF 04/2013 right toe surgery PAST SURGICAL HISTORY OF Right right big toe hallux rigidus POSTERIOR COLPORRHAPHY, REPAIR RECTOCELE 12/22/2013 posterior repair REPAIR FINGER/HAND TENDON Right 2021 Right thumb REVISION BREAST RECONSTRUCTION Bilateral 12/2016 Dr. Gastelum in [place] TONSILLECTOMY PRIMARY/SECONDARY <AGE 10 Tonsillectomy TOTAL KNEE REPLACEMENT Right 03/24/2023 [facility] VAG HYST 250 GM/< W/RMVL TUBEAND/OVARY 12/22/2013 TVH/BSO WRIST RIGHT OP SURGERY Right 2018 ORIF Wrist fracture FAMILY HISTORY: FAMILY HISTORY Problem Relation Age of Onset Cancer Mother breast Heart Father MD Osteoporosis Sister Osteopenia Osteoporosis Sister Osteopenia Hypertension Paternal Grandmother Stroke Paternal Grandmother No Known Problems Daughter No Known Problems Son SOCIAL HISTORY: SOCIAL HISTORY[1] MEDICATIONS: Current Outpatient Medications Medication Sig ezetimibe (ZETIA) 10 mg tablet Take 1 tablet by mouth once daily. esomeprazole (NEXIUM) 40 mg capsule Take 40 mg by mouth two times a day before meals. baclofen powder, diclofenac sodium powder, gabapentin powder, lidocaine SHELTER powder in cream base (CPD) Apply 1-2 g to affected area four times a day as needed. Baclofen2%;wgdlcpqmha62%;wbhkegvkoc44%;lidocaine6%. Per Altaf Metz MD (orthopedics). lactase (LACTAID FAST ACT ORAL) Take by mouth. MAGNESIUM ORAL Take by mouth. calcium carbonate-vitamin D (CALCIUM 500 WITH VITAMIN D) 500-125 mg-unit ORAL Tab cephALEXin (KEFLEX) 500 mg capsule Take 500 mg by mouth once daily as needed. cetirizine (ZYRTEC) 10 mg tablet Take 10 mg by mouth once daily. ubidecarenone Q-10 (COENZYME Q-10) 10 mg cap 10 mg once daily. Takes when she remembers to take it celecoxib (CELEBREX) 200 mg capsule Take 1 capsule by mouth once daily as needed for pain (back pain). gabapentin (NEURONTIN) 300 mg capsule Take 1 capsule by mouth three times a day for 180 days. Do not start before July 01, 2023. No current facility-administered medications for this visit. ALLERGIES: ALLERGIES Allergen Reactions Iodinated Contrast * Itching COMPLETE REVIEW OF SYSTEMS: Review of Systems Constitutional: Negative for chills, diaphoresis, fever and malaise/fatigue. HENT: Negative for congestion, hearing loss, nosebleeds, sinus pain, sore throat and tinnitus. Eyes: Negative for blurred vision, double vision, pain and redness. Respiratory: Negative for cough, hemoptysis, sputum production, shortness of breath and wheezing. Cardiovascular: Positive for chest pain (discomfort). Negative for palpitations, orthopnea, leg swelling and PND. Gastrointestinal: Positive for heartburn. Negative for abdominal pain, blood in stool, constipation, diarrhea, nausea and vomiting. Genitourinary: Negative for dysuria, frequency, hematuria and urgency. Musculoskeletal: Positive for joint pain. Negative for back pain, falls, myalgias and neck pain. Skin: Negative for itching and rash. Neurological: Negative for dizziness, speech change, focal weakness, seizures, loss of consciousness, weakness and headaches. Endo/Heme/Allergies: Does not bruise/bleed easily. Psychiatric/Behavioral: Negative for depression, hallucinations, memory loss, substance abuse and suicidal ideas. The patient is not nervous/anxious and does not have insomnia. OBJECTIVE PHYSICAL EXAM: BP 106/70 Pulse 61 Ht 5' 6 (1.68m) Wt 149 lb 3.2 oz (67.7kg) BMI 24.09 kg/(m2). Physical Exam Vitals reviewed. Constitutional: Appearance: Normal appearance. She is normal weight. HENT: Head: Normocephalic and atraumatic. Nose: Nose normal. Eyes: General: No scleral icterus. Extraocular Movements: Extraocular movements intact. Conjunctiva/sclera: Conjunctivae normal. Pupils: Pupils are equal, round, and reactive to light. Cardiovascular: Rate and Rhythm: Normal rate. Pulmonary: Effort: Pulmonary effort is normal. No respiratory distress. Skin: General: Skin is warm and dry. Coloration: Skin is not jaundiced or pale. Neurological: Mental Status: She is alert and oriented to person, place, and time. Psychiatric: Behavior: Behavior normal. DATA: Diagnostic tests reviewed for today's visit: EMR reviewed Plan ASSESSMENT AND PLAN Grazyna Dunham is a 74 year old female with a PMH as noted above who presents with dysphagia and GERD. 1. Esophageal dysphagia - ICD9: 787.29, ICD10: R13.19 (primary diagnosis) - I have reviewed all of her outside records, but do not see an esophagram has been performed or EGD with [facility] and years ago she attempted manometry without success. She is willing to attempt it again. - XR ESOPHAGRAM - MANOMETRY ESOPHAGEAL - EGD - THERAPEUTIC, EUS, OR TUBE INTERVENTIONS 2. Gastroesophageal reflux disease, unspecified whether esophagitis present - ICD9: 530.81, ICD10: K21.9 - Discussed lifestyle modifications including losing weight, limiting caffeine, no meals three hours before sleep, and head of bed elevation - Continue treatment with Nexium 40 mg BID and Pepcid at HS - reviewed that she will need to stop these medications 5 days prior to testing - Setup for EGD - Setup for Upper GI Series with Follow Through - Stop Nexium and Pepcid 5 days prior to testing 3. Hiatal hernia - ICD9: 553.3, ICD10: K44.9 - Moderate per outside scanned documents, on which I am not able to visualize images 4. Hyperlipidemia, unspecified hyperlipidemia type - ICD9: 272.4, ICD10: E78.5 - Continue current medical management 5. 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 - ICD9: 530.85, ICD10: K22.70 - Will re-assess at upcoming EGD Medical Decision Making: Problems: Moderate: New problem with uncertain prognosis Data: Unique test result(s) reviewed: 3+ Unique test(s) ordered: 3+ Discussed management or test w/ external physician/QHCP/source Risk: Moderate: Drug management and Moderate risk from testing/treatment Medical Decision Making Level: 4 - Moderate SIGNATURE: Kym Stone MD PATIENT NAME: Grazyna Dunham DATE: March 02, 2025 TIME: 11:08 AM PAGER/CONTACT #: [id number] [1] Social History Tobacco Use Smoking status: Never Smokeless tobacco: Never Vaping Use Vaping status: Never Used Substance Use Topics Alcohol use: Yes Alcohol/week: 2.0 standard drinks of alcohol Types: 2 Standard drinks or equivalent per week Comment: 1 glass of wine Drug use: No Christos Farmer 03/02/2025 11:56 AM Signed Addended by: CHRISTOS FARMER on: 03/02/2025 11:56 AM Modules accepted: Orders Referring Provider: SELF [200] Allergies As of Date: 03/02/2025 Noted Allergy Reaction IODINATED CONTRAST MEDIA 12/15/2013 9 - Itching Date Reviewed: 03/02/2025 Reviewed by: Kym Stone MD - Fully Assessed Reason for Visit: New Patient [172] Primary Visit Diagnosis:Esophageal dysphagia [R13.19] Other Visit Diagnoses:Gastroesophageal reflux disease, unspecified whether esophagitis present [K21.9] Hiatal hernia [K44.9] Hyperlipidemia, unspecified hyperlipidemia type [E78.5] 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 [K22.70] Order(s):XR ESOPHAGRAM [[id number]] Order #: [id number] FUTURE MANOMETRY ESOPHAGEAL [[id number]] Order #: [id number] FUTURE FOLLOW UP IN GENERAL SURGERY [[id number]] Order #: [id number]: 1 FUTURE EGD - THERAPEUTIC, EUS, OR TUBE INTERVENTIONS [GI2] Order #: [id number] FUTURE Prescriptions as of 03/02/2025 - ezetimibe (ZETIA) 10 mg tablet Take 1 tablet by mouth once daily. - esomeprazole (NEXIUM) 40 mg capsule Take 40 mg by mouth two times a day before meals. - cephALEXin (KEFLEX) 500 mg capsule Take 500 mg by mouth once daily as needed. - cetirizine (ZYRTEC) 10 mg tablet Take 10 mg by mouth once daily. - ubidecarenone Q-10 (COENZYME Q-10) 10 mg cap 10 mg once daily. Takes when she remembers to take it - celecoxib (CELEBREX) 200 mg capsule Take 1 capsule by mouth once daily as needed for pain (back pain). - baclofen powder, diclofenac sodium powder, gabapentin powder, lidocaine SHELTER powder in cream base (CPD) Apply 1-2 g to affected area four times a day as needed. Baclofen2%;idaknpmjjj80%;gxibggkwmq36%;lidocaine6%. Per Altaf Metz MD (orthopedics). - gabapentin (NEURONTIN) 300 mg capsule Take 1 capsule by mouth three times a day for 180 days. Do not start before July 01, 2023. - lactase (LACTAID FAST ACT ORAL) Take by mouth. - MAGNESIUM ORAL Take by mouth. - calcium carbonate-vitamin D (CALCIUM 500 WITH VITAMIN D) 500-125 mg-unit ORAL Tab Problem List As Of Date 03/02/2025 Noted Resolved Dysphagia [787.2] 12/29/2022 ESOPHAGEAL REFLUX [K21.9] Abdominal pain, left lower quadrant [R10.32] 06/27/2022 Diverticulosis of colon (without mention of hem* 06/27/2022 Internal hemorrhoids without mention of complic* 06/27/2022 Acute gastritis without mention of hemorrhage [*08/05/2005 06/27/2022 Porokeratosis [Q82.8] 03/26/2011 06/27/2022 Trigger finger [M65.30] 04/27/2013 06/27/2022 Hallux rigidus [M20.20] 05/09/2013 06/27/2022 Radiculopathy, cervical region [M54.12] 08/24/2015 06/27/2022 Carpal tunnel syndrome, right [G56.01] 07/23/2017 06/27/2022 Screening for breast cancer [Z12.39] 11/18/2018 11/18/2018 H/O bilateral mastectomy [Z90.13] 11/18/2018 Neuropathic pain, leg, right [M79.2] Osteopenia of multiple sites [M85.89] 01/27/2006 Other low back pain [M54.59] 09/20/2021 Sleep apnea [G47.30] 06/27/2022 Mild memory disturbance [R41.3] 06/27/2022 History of breast cancer [Z85.3] 06/27/2022 Primary osteoarthritis of right knee [M17.11] 12/29/2022 Multiple thyroid nodules [E04.2] 12/29/2022 Hyperlipidemia [E78.5] 07/01/2023 Unilateral primary osteoarthritis, left hip [M1*03/30/2024 Letter Text Encounter Status:Closed by KYM STONE on 03/02/25 PROGRESS Observed: 03/02/2025 11:08 AM Status: COMPLETED Source: [facility] HNO ID: [id number] Author: KYM STONE MD Service: ? Author Type: Physician Type: Progress Notes Filed: 03/02/2025 11:52 Note Text: SURGICAL SERVICES HISTORY AND PHYSICAL EXAMINATION SERVICE DATE: 03/02/2025 SERVICE TIME: 11:08 AM PRIMARY CARE PHYSICIAN: Garo Elkins MD SUBJECTIVE CHIEF COMPLAINT: wants a second opinion HISTORY OF PRESENT ILLNESS: Mrs. Dunham is a 74 year old female with a PMH of breast CA (s/p mastectomy w/ reconstruction), GERD, hiatal hernia, dysphagia, HLD, osteopenia, OA, Harry's esophagus who presents for surgical consultation. Surgical consultation was requested by the patient's referring physician, Dr. Grao Wilcox MD. A copy of this consultation note will be provided to the requesting physician(s) by way of shared medical record or letter via [place] mail. The patient reports that she has been dealing with acid reflux for about 40 years. Years ago she was on a PPI for 6-7 years. When she moved back to [place] 5 years ago her symptoms of GERD became much worse with post-prandial acid reflux, vocal hoarseness developed, and she also experiences chest discomfort, chest pressure, and difficulty swallowing. Her goal is to feel better. After esophageal dilation in November she did experience some relief of dysphagia, but still has some difficulty swallowing. She is currently on Esomeprazole 40 mg BID and Pepcid 20 mg at HS and PRN Tums. When she takes this medication she has symptom control for several hours, but hours later may develop symptoms again. If she does not take the medication she experiences even more severe symptoms. She endorses nocturnal symptoms of chest pain, substernal burning. She was on baclofen and diltiazem for esophageal issues for some time, but stopped due to not believing it helped her symptoms. She denies use of NSAIDs frequently. She denies use of muscle relaxants. She denies a nickel allergy. Workup: all below workup is from scanned documents from OSH - EGD (12/09/24): LA Grade B reflux esophagitis. No bleeding. Moderate Schatzki ring. Dilated. Medium sized hiatal hernia. - Biopsy: distal esophagus with squamous mucosa with mild reactive change. Columnar mucosa with goblet cell metaplasia - MBS (12/29/24): recommend regular diet and consistency - CT chest (02/06/23) no acute process. External imaging - Mano - was not able to tolerate the testing Social: denies nicotine or MJ use; 3 etoh beverages per week PSHx: CTR, PHANI with colpopexy and rectopexy, bilateral mastectomy with reconstruction, various ortho procedures PAST MEDICAL HISTORY: PAST MEDICAL HISTORY Diagnosis Date Acute gastritis without mention of hemorrhage 08/05/2005 Breast cancer (HCC) 2016 Carpal tunnel syndrome, right 07/23/2017 Closed pelvic fracture (HCC) 1980 fall from roof, pelvic ring fractures Diverticulosis of colon (without mention of hemorrhage) Dysphagia Esophageal reflux Fracture, ribs 12/2013 4 cracked ribs Generalized osteoarthrosis, involving multiple sites Hallux rigidus 05/09/2013 Hyperlipidemia Internal hemorrhoids without mention of complication Mild memory disturbance 06/27/2022 Multiple thyroid nodules 12/29/2022 Osteopenia of multiple sites 01/27/2006 Other low back pain 09/20/2021 Primary osteoarthritis of right knee 12/29/2022 Radiculopathy, cervical region 08/24/2015 Spondylosis of unspecified site without mention of myelopathy Unilateral primary osteoarthritis, left hip 03/30/2024 PAST SURGICAL HISTORY: PAST SURGICAL HISTORY Procedure Laterality Date BREAST RECONSTRUCTION 01/2022 [facility] CARPAL TUNNEL 2018 right COLONOSCOPY FLX DX W/COLLJ SPEC WHEN PFRMD 06/11/2004 Colonoscopy COLPOPEXY VAGINAL INTRAPERITONEAL APPROACH 12/22/2013 USLF EGD TRANSORAL BIOPSY SINGLE/MULTIPLE 08/05/2005 MASTECTOMY HX Bilateral 01/2016 s/p bilateral mastectomy with bilateral implants placed at same time PAST SURGICAL HISTORY OF 1999 right shoulder, labrum repair PAST SURGICAL HISTORY OF Right 2019 foot surgery pin removed PAST SURGICAL HISTORY OF 04/2013 right toe surgery PAST SURGICAL HISTORY OF Right right big toe hallux rigidus POSTERIOR COLPORRHAPHY, REPAIR RECTOCELE 12/22/2013 posterior repair REPAIR FINGER/HAND TENDON Right 2021 Right thumb REVISION BREAST RECONSTRUCTION Bilateral 12/2016 Dr. Gastelum in [place] TONSILLECTOMY PRIMARY/SECONDARY <AGE 10 Tonsillectomy TOTAL KNEE REPLACEMENT Right 03/24/2023 [facility] VAG HYST 250 GM/< W/RMVL TUBEAND/OVARY 12/22/2013 TVH/BSO WRIST RIGHT OP SURGERY Right 2018 ORIF Wrist fracture FAMILY HISTORY: FAMILY HISTORY Problem Relation Age of Onset Cancer Mother breast Heart Father MD Osteoporosis Sister Osteopenia Osteoporosis Sister Osteopenia Hypertension Paternal Grandmother Stroke Paternal Grandmother No Known Problems Daughter No Known Problems Son SOCIAL HISTORY: SOCIAL HISTORY[1] MEDICATIONS: Current Outpatient Medications Medication Sig ezetimibe (ZETIA) 10 mg tablet Take 1 tablet by mouth once daily. esomeprazole (NEXIUM) 40 mg capsule Take 40 mg by mouth two times a day before meals. baclofen powder, diclofenac sodium powder, gabapentin powder, lidocaine SHELTER powder in cream base (CPD) Apply 1-2 g to affected area four times a day as needed. Baclofen2%;qffevtldxo54%;mhwmbidoge01%;lidocaine6%. Per Altaf Metz MD (orthopedics). lactase (LACTAID FAST ACT ORAL) Take by mouth. MAGNESIUM ORAL Take by mouth. calcium carbonate-vitamin D (CALCIUM 500 WITH VITAMIN D) 500-125 mg-unit ORAL Tab cephALEXin (KEFLEX) 500 mg capsule Take 500 mg by mouth once daily as needed. cetirizine (ZYRTEC) 10 mg tablet Take 10 mg by mouth once daily. ubidecarenone Q-10 (COENZYME Q-10) 10 mg cap 10 mg once daily. Takes when she remembers to take it celecoxib (CELEBREX) 200 mg capsule Take 1 capsule by mouth once daily as needed for pain (back pain). gabapentin (NEURONTIN) 300 mg capsule Take 1 capsule by mouth three times a day for 180 days. Do not start before July 01, 2023. No current facility-administered medications for this visit. ALLERGIES: ALLERGIES Allergen Reactions Iodinated Contrast * Itching COMPLETE REVIEW OF SYSTEMS: Review of Systems Constitutional: Negative for chills, diaphoresis, fever and malaise/fatigue. HENT: Negative for congestion, hearing loss, nosebleeds, sinus pain, sore throat and tinnitus. Eyes: Negative for blurred vision, double vision, pain and redness. Respiratory: Negative for cough, hemoptysis, sputum production, shortness of breath and wheezing. Cardiovascular: Positive for chest pain (discomfort). Negative for palpitations, orthopnea, leg swelling and PND. Gastrointestinal: Positive for heartburn. Negative for abdominal pain, blood in stool, constipation, diarrhea, nausea and vomiting. Genitourinary: Negative for dysuria, frequency, hematuria and urgency. Musculoskeletal: Positive for joint pain. Negative for back pain, falls, myalgias and neck pain. Skin: Negative for itching and rash. Neurological: Negative for dizziness, speech change, focal weakness, seizures, loss of consciousness, weakness and headaches. Endo/Heme/Allergies: Does not bruise/bleed easily. Psychiatric/Behavioral: Negative for depression, hallucinations, memory loss, substance abuse and suicidal ideas. The patient is not nervous/anxious and does not have insomnia. OBJECTIVE PHYSICAL EXAM: BP 106/70 Pulse 61 Ht 5' 6 (1.68m) Wt 149 lb 3.2 oz (67.7kg) BMI 24.09 kg/(m2). Physical Exam Vitals reviewed. Constitutional: Appearance: Normal appearance. She is normal weight. HENT: Head: Normocephalic and atraumatic. Nose: Nose normal. Eyes: General: No scleral icterus. Extraocular Movements: Extraocular movements intact. Conjunctiva/sclera: Conjunctivae normal. Pupils: Pupils are equal, round, and reactive to light. Cardiovascular: Rate and Rhythm: Normal rate. Pulmonary: Effort: Pulmonary effort is normal. No respiratory distress. Skin: General: Skin is warm and dry. Coloration: Skin is not jaundiced or pale. Neurological: Mental Status: She is alert and oriented to person, place, and time. Psychiatric: Behavior: Behavior normal. DATA: Diagnostic tests reviewed for today's visit: EMR reviewed Plan ASSESSMENT AND PLAN Grazyna Dunham is a 74 year old female with a PMH as noted above who presents with dysphagia and GERD. 1. Esophageal dysphagia - ICD9: 787.29, ICD10: R13.19 (primary diagnosis) - I have reviewed all of her outside records, but do not see an esophagram has been performed or EGD with [facility] and years ago she attempted manometry without success. She is willing to attempt it again. - XR ESOPHAGRAM - MANOMETRY ESOPHAGEAL - EGD - THERAPEUTIC, EUS, OR TUBE INTERVENTIONS 2. Gastroesophageal reflux disease, unspecified whether esophagitis present - ICD9: 530.81, ICD10: K21.9 - Discussed lifestyle modifications including losing weight, limiting caffeine, no meals three hours before sleep, and head of bed elevation - Continue treatment with Nexium 40 mg BID and Pepcid at - reviewed that she will need to stop these medications 5 days prior to testing - Setup for EGD - Setup for Upper GI Series with Follow Through - Stop Nexium and Pepcid 5 days prior to testing 3. Hiatal hernia - ICD9: 553.3, ICD10: K44.9 - Moderate per outside scanned documents, on which I am not able to visualize images 4. Hyperlipidemia, unspecified hyperlipidemia type - ICD9: 272.4, ICD10: E78.5 - Continue current medical management 5. 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 - ICD9: 530.85, ICD10: K22.70 - Will re-assess at upcoming EGD Medical Decision Making: Problems: Moderate: New problem with uncertain prognosis Data: Unique test result(s) reviewed: 3+ Unique test(s) ordered: 3+ Discussed management or test w/ external physician/QHCP/source Risk: Moderate: Drug management and Moderate risk from testing/treatment Medical Decision Making Level: 4 - Moderate SIGNATURE: Kym Stone MD PATIENT NAME: Grazyna Dunham DATE: March 02, 2025 TIME: 11:08 AM PAGER/CONTACT #: [phone] [1] Social History Tobacco Use Smoking status: Never Smokeless tobacco: Never Vaping Use Vaping status: Never Used Substance Use Topics Alcohol use: Yes Alcohol/week: 2.0 standard drinks of alcohol Types: 2 Standard drinks or equivalent per week Comment: 1 glass of wine Drug use: No 29 Observed: 02/06/2025 9:44 AM Status: COMPLETED Source: [facility] Addended by: JAYLAN GAN on: 02/06/2025 09:44 AM Modules accepted: Orders 29 Observed: 02/06/2025 9:33 AM Status: COMPLETED Source: [facility] Addended by: ERICK WILDER on: 02/06/2025 09:33 AM Modules accepted: Orders 36 Observed: 02/06/2025 9:32 AM Status: COMPLETED Source: [facility] Just until 03-24-25 Please sign 36 Observed: 02/06/2025 9:26 AM Status: COMPLETED Source: [facility] Name of caller: Grazyna Contact phone number: [phone] Relationship to Patient: patient Provider: [facility]: [facility]o Chief Complaint/Reason for Call: Patient called in stating she has a dental cleaning appointment for tomorrow 02/07- wondering if she still needs a dental prophyaxis prior too. She is s/p left tka on 03/24/2023. If she does please send antibiotic to [facility] pharmacy in [place]. If she no longer needs the antibiotic please upload a letter in her mychart to show to the dental clinic as she does not have the fax number at this time. Best time of day caller can be reached: any Patient advised that office/PCP has 24-48 business hours to return their call: No PROGRESS Observed: 01/27/2025 2:20 PM Status: COMPLETED Source: [facility]NO ID: [id number] Author: ABDULAZIZ CARDONA RPh Service: ? Author Type: Pharmacist Type: Progress Notes Filed: 01/30/2025 11:30 Note Text: Patient is identified through a medication adherence outreach initiative based on pharmacy claims data from: [employer] Medication Adherence Category: Statins Statin Medication: Lab Results Component Value Date LDL 142 (H) 10/14/2024 LDL 107 (H) 11/30/2019 LDL 117 (H) 08/04/2018 Rosuvastatin 5 mg daily Per pharmacy sales representative outreach encounter on 01/27/25: Spoke to pt and pt state she didn't think she should still be taking because doctor start her on Ezetimibe. Pharmacist escalation reasons: Confusion from provider's directions Per chart review: Neither rosuvastatin nor Zetia are listed on [facility] EPIC med list. Appears patient is following with outside provider, Dasha Kumar CNP, for hyperlipidemia management. Unable to review chart notes, but per reconcile dispense does appear Zetia was last dispensed 01/2025 and rosuvastatin last dispensed 12/08/24. Will clarify with patient. First Attempt Outreach consists of: Unable to reach via phone, MeetMe message sent Outcome of review: Pending patient outreach Abdulaziz Cardona RPh [facility] PROGRESS Observed: 01/27/2025 2:20 PM Status: COMPLETED Source: [facility] ID: [id number] Author: ABDULAZIZ CARDONA RPh Service: ? Author Type: Pharmacist Type: Progress Notes Filed: 01/30/2025 11:30 Note Text: Second Attempt Outreach consists of: Spoke with patient - she is unsure if statin was stopped but confirms she is only taking Zetia at this time. Med list updated. She will call Dasha Kumar CNP to confirm and update PCP care team via MeetMe, if needed. Outcome of review: Adherence concern addressed Abdulaziz Cardona RPh [facility] PROGRESS Observed: 01/27/2025 10:54 AM Status: COMPLETED Source: [facility] ID: [id number] Author: ESTRELLA SOLITARIO CPhT Service: ? Author Type: Financial Health Counselor Type: Progress Notes Filed: 01/27/2025 15:25 Note Text: Patient is identified through a medication adherence outreach initiative based on pharmacy claims data from: [employer] Medication Adherence Category: Statins Second Attempt Medication(s) Rosuvastatin 5 mg 1 tab daily Last Filled 11/21/24 for 30 DS, Next fill due 12/20/24 Medication Status per portal/Epic Reconcile Dispense: Not filled Medication Status per Profile Review: No issues per profile review Patient identified by name and Outreach to patient: Spoke to patient Med Adherence Concern: Spoke to pt and pt state she didn't think she should still be taking because doctor start her on Ezetimibe. What was primary intervention? Escalate to pharmacist - adherence Estrella Solitario CPhT [facility] CNPTOUTREACH Observed: 01/27/2025 12:00 AM Status: COMPLETED Source: [facility] Patient Outreach (PHPOHE) GRAZYNA DUNHAM ([id number]) 1950 F Date Time Provider Department 01/27/25 GARO ELKINS PHPOHE During your visit today, we recorded the following information about you: Estrella Solitario CPhT 01/27/2025 3:25 PM Signed Patient is identified through a medication adherence outreach initiative based on pharmacy claims data from: [employer] Medication Adherence Category: Statins Second Attempt Medication(s) Rosuvastatin 5 mg 1 tab daily Last Filled 11/21/24 for 30 DS, Next fill due 12/20/24 Medication Status per portal/Epic Reconcile Dispense: Not filled Medication Status per Profile Review: No issues per profile review Patient identified by name and Outreach to patient: Spoke to patient Med Adherence Concern: Spoke to pt and pt state she didn't think she should still be taking because doctor start her on Ezetimibe. What was primary intervention? Escalate to pharmacist - adherence Estrella Solitario CPhT [facility] Allergies As of Date: 01/27/2025 Noted Allergy Reaction IODINATED CONTRAST MEDIA 12/15/2013 9 - Itching Date Reviewed: 10/28/2024 Reviewed by: Lashaun Kim APRN.ROD MACHINE OPERATOR - Fully Assessed Reason for Visit: Allied Health Visit [5] Cmt: Medication Adherence Outreach Prescriptions as of 01/27/2025 - cephALEXin (KEFLEX) 500 mg capsule Take 500 mg by mouth once daily as needed. - cetirizine (ZYRTEC) 10 mg tablet Take 10 mg by mouth once daily. - ubidecarenone Q-10 (COENZYME Q-10) 10 mg cap 10 mg once daily. Takes when she remembers to take it - celecoxib (CELEBREX) 200 mg capsule Take 1 capsule by mouth once daily as needed for pain (back pain). - baclofen powder, diclofenac sodium powder, gabapentin powder, lidocaine SHELTER powder in cream base (CPD) Apply 1-2 g to affected area four times a day as needed. Baclofen2%;kbiuyeihjl34%;%;lidocaine6%. Per Altaf Metz MD (orthopedics). - gabapentin (NEURONTIN) 300 mg capsule Take 1 capsule by mouth three times a day for 180 days. Do not start before July 01, 2023. - lactase (LACTAID FAST ACT ORAL) Take by mouth. - MAGNESIUM ORAL Take by mouth. - calcium carbonate-vitamin D (CALCIUM 500 WITH VITAMIN D) 500-125 mg-unit ORAL Tab Problem List As Of Date 01/27/2025 Noted Resolved Dysphagia [787.2] 12/29/2022 ESOPHAGEAL REFLUX [K21.9] Abdominal pain, left lower quadrant [R10.32] 06/27/2022 Diverticulosis of colon (without mention of hem* 06/27/2022 Internal hemorrhoids without mention of complic* 06/27/2022 Acute gastritis without mention of hemorrhage [*08/05/2005 06/27/2022 Porokeratosis [Q82.8] 03/26/2011 06/27/2022 Trigger finger [M65.30] 04/27/2013 06/27/2022 Hallux rigidus [M20.20] 05/09/2013 06/27/2022 Radiculopathy, cervical region [M54.12] 08/24/2015 06/27/2022 Carpal tunnel syndrome, right [G56.01] 07/23/2017 06/27/2022 Screening for breast cancer [Z12.39] 11/18/2018 11/18/2018 H/O bilateral mastectomy [Z90.13] 11/18/2018 Neuropathic pain, leg, right [M79.2] Osteopenia of multiple sites [M85.89] 01/27/2006 Other low back pain [M54.59] 09/20/2021 Sleep apnea [G47.30] 06/27/2022 Mild memory disturbance [R41.3] 06/27/2022 History of breast cancer [Z85.3] 06/27/2022 Primary osteoarthritis of right knee [M17.11] 12/29/2022 Multiple thyroid nodules [E04.2] 12/29/2022 Hyperlipidemia [E78.5] 07/01/2023 Unilateral primary osteoarthritis, left hip [M1*03/30/2024 Encounter Status:Closed by ESTRELLA SOLITARIO on 01/27/25 CNPTOUTREACH Observed: 01/27/2025 12:00 AM Status: COMPLETED Source: [facility] Patient Outreach (PHPOHE) GRAZYNA DUNHAM ([id number]) 1950 F Date Time Provider Department 01/27/25 ABDULAZIZ CARDONA PHPOHE During your visit today, we recorded the following information about you: Abdulaziz Cardona [facility] 01/30/2025 11:30 AM Signed Patient is identified through a medication adherence outreach initiative based on pharmacy claims data from: [employer] Medication Adherence Category: Statins Statin Medication: Lab Results Component Value Date LDL 142 (H) 10/14/2024 LDL 107 (H) 11/30/2019 LDL 117 (H) 08/04/2018 Rosuvastatin 5 mg daily Per pharmacy sales representative outreach encounter on 01/27/25: Spoke to pt and pt state she didn't think she should still be taking because doctor start her on Ezetimibe. Pharmacist escalation reasons: Confusion from provider's directions Per chart review: Neither rosuvastatin nor Zetia are listed on [facility] EPIC med list. Appears patient is following with outside provider, Dasha Kumar CNP, for hyperlipidemia management. Unable to review chart notes, but per reconcile dispense does appear Zetia was last dispensed 01/2025 and rosuvastatin last dispensed 12/08/24. Will clarify with patient. First Attempt Outreach consists of: Unable to reach via phone, MeetMe message sent Outcome of review: Pending patient outreach Abdulaziz Cardona RPh [facility] Abdulaziz Cardona RPh 01/30/2025 11:30 AM Signed Second Attempt Outreach consists of: Spoke with patient - she is unsure if statin was stopped but confirms she is only taking Zetia at this time. Med list updated. She will call Dasha Kumar CNP to confirm and update PCP care team via MeetMe, if needed. Outcome of review: Adherence concern addressed Abdulaziz Cardona [facility] Team Allergies As of Date: 01/27/2025 Noted Allergy Reaction IODINATED CONTRAST MEDIA 12/15/2013 9 - Itching Date Reviewed: 10/28/2024 Reviewed by: Lashaun Kim APRN.CHRISTIANO - Fully Assessed Reason for Visit: Allied Health Visit [5] Cmt: Medication Adherence Prescriptions as of 01/30/2025 - ezetimibe (ZETIA) 10 mg tablet Take 1 tablet by mouth once daily. - esomeprazole (NEXIUM) 40 mg capsule Take 40 mg by mouth two times a day before meals. - cephALEXin (KEFLEX) 500 mg capsule Take 500 mg by mouth once daily as needed. - cetirizine (ZYRTEC) 10 mg tablet Take 10 mg by mouth once daily. - ubidecarenone Q-10 (COENZYME Q-10) 10 mg cap 10 mg once daily. Takes when she remembers to take it - celecoxib (CELEBREX) 200 mg capsule Take 1 capsule by mouth once daily as needed for pain (back pain). - baclofen powder, diclofenac sodium powder, gabapentin powder, lidocaine SHELTER powder in cream base (CPD) Apply 1-2 g to affected area four times a day as needed. Baclofen2%;jfylgonurb53%;sbegdoocuj89%;lidocaine6%. Per Altaf Metz MD (orthopedics). - gabapentin (NEURONTIN) 300 mg capsule Take 1 capsule by mouth three times a day for 180 days. Do not start before July 01, 2023. - lactase (LACTAID FAST ACT ORAL) Take by mouth. - MAGNESIUM ORAL Take by mouth. - calcium carbonate-vitamin D (CALCIUM 500 WITH VITAMIN D) 500-125 mg-unit ORAL Tab Problem List As Of Date 01/27/2025 Noted Resolved Dysphagia [787.2] 12/29/2022 ESOPHAGEAL REFLUX [K21.9] Abdominal pain, left lower quadrant [R10.32] 06/27/2022 Diverticulosis of colon (without mention of hem* 06/27/2022 Internal hemorrhoids without mention of complic* 06/27/2022 Acute gastritis without mention of hemorrhage [*08/05/2005 06/27/2022 Porokeratosis [Q82.8] 03/26/2011 06/27/2022 Trigger finger [M65.30] 04/27/2013 06/27/2022 Hallux rigidus [M20.20] 05/09/2013 06/27/2022 Radiculopathy, cervical region [M54.12] 08/24/2015 06/27/2022 Carpal tunnel syndrome, right [G56.01] 07/23/2017 06/27/2022 Screening for breast cancer [Z12.39] 11/18/2018 11/18/2018 H/O bilateral mastectomy [Z90.13] 11/18/2018 Neuropathic pain, leg, right [M79.2] Osteopenia of multiple sites [M85.89] 01/27/2006 Other low back pain [M54.59] 09/20/2021 Sleep apnea [G47.30] 06/27/2022 Mild memory disturbance [R41.3] 06/27/2022 History of breast cancer [Z85.3] 06/27/2022 Primary osteoarthritis of right knee [M17.11] 12/29/2022 Multiple thyroid nodules [E04.2] 12/29/2022 Hyperlipidemia [E78.5] 07/01/2023 Unilateral primary osteoarthritis, left hip [M1*03/30/2024 Encounter Status:Closed by ABDULAZIZ CARDONA on 01/30/25 PROGRESS Observed: 01/20/2025 12:56 PM Status: COMPLETED [id number] Author: TISHA TAO CPhT Service: ? Author Type: Financial Health Counselor Type: Progress Notes Filed: 01/20/2025 13:02 Note Text: Patient is identified through a medication adherence outreach initiative based on pharmacy claims data from: [employer] Medication Adherence Category: Statins First Review Attribution Status: Correct attribution Medication(s) Rosuvastatin 5 mg Medication Status per portal/Epic Reconcile Dispense: Not filled Medication Status per Profile Review: No issues per profile review Patient/provider appropriate for outreach? Yes Patient identified by name and Outreach to patient: Left Voicemail/message for return call What was primary intervention? No intervention Sent/Responded to MeetMe What was primary intervention? Remind patient to pick up operator or fill Tisha Tao CPhT [facility] Team CNPTOUTREACH Observed: 01/20/2025 12:00 AM Status: COMPLETED Source: [facility] Patient Outreach (PHPOHE) GRAZYNA DUNHAM ([id number]) 1950 F Date Time Provider Department 01/20/25 GARO ELKINS During your visit today, we recorded the following information about you: Tisha Tao CPhT 01/20/2025 1:02 PM Signed Patient is identified through a medication adherence outreach initiative based on pharmacy claims data from: [employer] Medication Adherence Category: Statins First Review Attribution Status: Correct attribution Medication(s) Rosuvastatin 5 mg Medication Status per portal/Epic Reconcile Dispense: Not filled Medication Status per Profile Review: No issues per profile review Patient/provider appropriate for outreach? Yes Patient identified by name and Outreach to patient: Left Voicemail/message for return call What was primary intervention? No intervention Sent/Responded to MeetMe What was primary intervention? Remind patient to pick up operator or fill Tisha Tao CPhT [facility] Team Allergies As of Date: 01/20/2025 Noted Allergy Reaction IODINATED CONTRAST MEDIA 12/15/2013 9 - Itching Date Reviewed: 10/28/2024 Reviewed by: Lashaun Kim APRN.ROD MACHINE OPERATOR - Fully Assessed Reason for Visit: Allied Health Visit [5] Cmt: Medication adherence outreach Prescriptions as of 01/20/2025 - cephALEXin (KEFLEX) 500 mg capsule Take 500 mg by mouth once daily as needed. - cetirizine (ZYRTEC) 10 mg tablet Take 10 mg by mouth once daily. - ubidecarenone Q-10 (COENZYME Q-10) 10 mg cap 10 mg once daily. Takes when she remembers to take it - celecoxib (CELEBREX) 200 mg capsule Take 1 capsule by mouth once daily as needed for pain (back pain). - baclofen powder, diclofenac sodium powder, gabapentin powder, lidocaine SHELTER powder in cream base (CPD) Apply 1-2 g to affected area four times a day as needed. Baclofen2%;wnliywthbt49%;dkoduqpfjh28%;lidocaine6%. Per Altaf Metz MD (orthopedics). - gabapentin (NEURONTIN) 300 mg capsule Take 1 capsule by mouth three times a day for 180 days. Do not start before July 01, 2023. - lactase (LACTAID FAST ACT ORAL) Take by mouth. - MAGNESIUM ORAL Take by mouth. - calcium carbonate-vitamin D (CALCIUM 500 WITH VITAMIN D) 500-125 mg-unit ORAL Tab Problem List As Of Date 01/20/2025 Noted Resolved Dysphagia [787.2] 12/29/2022 ESOPHAGEAL REFLUX [K21.9] Abdominal pain, left lower quadrant [R10.32] 06/27/2022 Diverticulosis of colon (without mention of hem* 06/27/2022 Internal hemorrhoids without mention of complic* 06/27/2022 Acute gastritis without mention of hemorrhage [*08/05/2005 06/27/2022 Porokeratosis [Q82.8] 03/26/2011 06/27/2022 Trigger finger [M65.30] 04/27/2013 06/27/2022 Hallux rigidus [M20.20] 05/09/2013 06/27/2022 Radiculopathy, cervical region [M54.12] 08/24/2015 06/27/2022 Carpal tunnel syndrome, right [G56.01] 07/23/2017 06/27/2022 Screening for breast cancer [Z12.39] 11/18/2018 11/18/2018 H/O bilateral mastectomy [Z90.13] 11/18/2018 Neuropathic pain, leg, right [M79.2] Osteopenia of multiple sites [M85.89] 01/27/2006 Other low back pain [M54.59] 09/20/2021 Sleep apnea [G47.30] 06/27/2022 Mild memory disturbance [R41.3] 06/27/2022 History of breast cancer [Z85.3] 06/27/2022 Primary osteoarthritis of right knee [M17.11] 12/29/2022 Multiple thyroid nodules [E04.2] 12/29/2022 Hyperlipidemia [E78.5] 07/01/2023 Unilateral primary osteoarthritis, left hip [M1*03/30/2024 Encounter Status:Closed by TISHA TAO on 01/20/25 PROGRESS Observed: 01/11/2025 11:53 AM Status: COMPLETED Source: [facility] Author: ESTRELLA SOLITARIO CPhT Service: ? Author Type: Financial Health Counselor Type: Progress Notes Filed: 01/11/2025 12:13 Note Text: Patient is identified through a medication adherence outreach initiative based on pharmacy claims data from: [employer] Medication Adherence Category: Statins First Review Attribution Status: Questionable attribution, Med NOT prescribed by [facility] provider, but Have [facility] PCP Medication(s) Rosuvastatin 5 mg 1 tab daily Due 12/20/24 last filled 11/21/24 for 30 ds Medication Status per portal/Epic Reconcile Dispense: Not filled Medication Status per Profile Review: No issues per profile review Patient/provider appropriate for outreach? Yes Patient identified by name and Outreach to patient: Left Voicemail/message for return call What was primary intervention? No intervention Sent/Responded to [facility] What was primary intervention? Remind patient to pick up operator or fill Questionable attribution, Med NOT prescribed by [facility] provider, but Have [facility] PCP Estrella Solitario CPhT [facility] Team SHELIA Observed: 01/11/2025 12:00 AM Status: COMPLETED Source: [facility] Patient Outreach (PHPOHE) GRAZYNA DUNHAM ([id number]) 1950 F Date Time Provider Department 01/11/25 GARO ELKINS PHPOHE During your visit today, we recorded the following information about you: Estrella Solitario CPhT 01/11/2025 12:13 PM Signed Patient is identified through a medication adherence outreach initiative based on pharmacy claims data from: [employer] Medication Adherence Category: Statins First Review Attribution Status: Questionable attribution, Med NOT prescribed by [facility] provider, but Have [facility] PCP Medication(s) Rosuvastatin 5 mg 1 tab daily Due 12/20/24 last filled 11/21/24 for 30 ds Medication Status per portal/Epic Reconcile Dispense: Not filled Medication Status per Profile Review: No issues per profile review Patient/provider appropriate for outreach? Yes Patient identified by name and Outreach to patient: Left Voicemail/message for return call What was primary intervention? No intervention Sent/Responded to [facility] What was primary intervention? Remind patient to pick up operator or fill Questionable attribution, Med NOT prescribed by [facility] provider, but Have [facility] PCP Estrella Solitario CPhT [facility] Team Allergies As of Date: 01/11/2025 Noted Allergy Reaction IODINATED CONTRAST MEDIA 12/15/2013 9 - Itching Date Reviewed: 10/28/2024 Reviewed by: Lashaun Kim APRN.ROD MACHINE OPERATOR - Fully Assessed Reason for Visit: Allied Health Visit [5] Cmt: Medication Adherence Outreach Prescriptions as of 01/20/2025 - cephALEXin (KEFLEX) 500 mg capsule Take 500 mg by mouth once daily as needed. - cetirizine (ZYRTEC) 10 mg tablet Take 10 mg by mouth once daily. - ubidecarenone Q-10 (COENZYME Q-10) 10 mg cap 10 mg once daily. Takes when she remembers to take it - celecoxib (CELEBREX) 200 mg capsule Take 1 capsule by mouth once daily as needed for pain (back pain). - baclofen powder, diclofenac sodium powder, gabapentin powder, lidocaine SHELTER powder in cream base (CPD) Apply 1-2 g to affected area four times a day as needed. Baclofen2%;gaditfmdwp74%;qjazcmhywz58%;lidocaine6%. Per Altaf Metz MD (orthopedics). - gabapentin (NEURONTIN) 300 mg capsule Take 1 capsule by mouth three times a day for 180 days. Do not start before July 01, 2023. - lactase (LACTAID FAST ACT ORAL) Take by mouth. - MAGNESIUM ORAL Take by mouth. - calcium carbonate-vitamin D (CALCIUM 500 WITH VITAMIN D) 500-125 mg-unit ORAL Tab Problem List As Of Date 01/11/2025 Noted Resolved Dysphagia [787.2] 12/29/2022 ESOPHAGEAL REFLUX [K21.9] Abdominal pain, left lower quadrant [R10.32] 06/27/2022 Diverticulosis of colon (without mention of hem* 06/27/2022 Internal hemorrhoids without mention of complic* 06/27/2022 Acute gastritis without mention of hemorrhage [*08/05/2005 06/27/2022 Porokeratosis [Q82.8] 03/26/2011 06/27/2022 Trigger finger [M65.30] 04/27/2013 06/27/2022 Hallux rigidus [M20.20] 05/09/2013 06/27/2022 Radiculopathy, cervical region [M54.12] 08/24/2015 06/27/2022 Carpal tunnel syndrome, right [G56.01] 07/23/2017 06/27/2022 Screening for breast cancer [Z12.39] 11/18/2018 11/18/2018 H/O bilateral mastectomy [Z90.13] 11/18/2018 Neuropathic pain, leg, right [M79.2] Osteopenia of multiple sites [M85.89] 01/27/2006 Other low back pain [M54.59] 09/20/2021 Sleep apnea [G47.30] 06/27/2022 Mild memory disturbance [R41.3] 06/27/2022 History of breast cancer [Z85.3] 06/27/2022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 and No further action needed (score 3-5). Functional Observation Was the patient's Timed Up AND Go test unsteady or >= 12 seconds? No Advance Care Planning Surrogate decision maker and/or advance care plan documented Measurements BP 114/64 (BP Site: Left Arm, BP Position: Sitting, BP Cuff Size: Regular Adult) Pulse 63 Temp 36.3 ?C (97.3 ?F) Resp 12 Ht 167.6 cm (5' 6) Wt 67.8 kg (149 lb 7.6 oz) SpO2 96% BMI 24.13 kg/m? Vision Screening: Follows with optometry/ophthalmology Assessment/Plan Medicare annual wellness visit, subsequent (Z00.00) - Counseled on healthy diet and regular exercise - Fall avoidance information provided - Personalized prevention plan provided - Vaccine recommendations reviewed. Patient deferred at this time. Garo Elkins MD 04/15/2024 4:[address] SONALI VARGAS FOR STRESS TEST. I WILL CALL THEM WELL. GO TO ER FOR ANY WORSENING OF ANGINA. Screening schedule The following prevention plan is recommended: DTaP,Tdap,Td Vaccine(1 - Tdap) Never done Shingrix Vaccine(2 of 2) due on 05/19/2020 RSV Vaccine(1 - 1-dose 75+ series) Never done Influenza Vaccine(1) due on 02/14/2024 WHAT YOU CAN DO TO PREVENT FALLS Many falls can be prevented. By making some changes, you can lower your chances of falling. Four things YOU can do to prevent falls for you* and your caregiver 1. Begin a regular exercise program Exercise is one of the most important ways to lower your chances of falling. It makes you stronger and helps you feel better. Exercises that improve balance and coordination (like Geovanni Chi) are the most helpful. Lack of exercise leads to weakness and increases your chances of falling. Ask your doctor or health care provider about the best type of exercise program for you. 2. Have your health care provider review your medicines Have your doctor or pharmacist review all the medicines you take, even lnri-osi-vkukism medicines. As you get older, the way medicines work in your body can change. Some medicines, or combinations of medicines, can make you sleepy or dizzy and can cause you to fall. 3. Have your vision checked Have your eyes checked by an eye doctor at least once a year. You may be wearing the wrong glasses or have a condition like glaucoma or cataracts that limits your vision. Poor vision can increase your chances of falling. 4. Make your home safer About half of all falls happen at home. To make your home safer: Remove things you can trip over (like papers, books, clothes, and shoes) from stairs and places where you walk. Remove small throw rugs or use double-sided tape to keep the rugs from slipping. Keep items you use often in cabinets you can reach easily without using a step stool. Have grab bars put in next to your toilet and in the tub or shower. Use non-slip mats in the bathtub and on shower floors. Improve the lighting in your home. As you get older, you need brighter lights to see well. Hang light-weight curtains or shades to reduce glare. Have handrails and lights put in on all staircases. Wear shoes both inside and outside the house. Avoid going barefoot or wearing slippers. For more information, contact: Centers for Disease Control and Prevention www.cdc.gov/injury * This information may not apply if you have certain medical conditions. Garo Elkins MD 04/18/2024 12:59 AM Signed This note was created using [employer]. Subjective Patient presents with: ED Follow-up: fell on Thursday tripped on step, c/o rib, chest and head pain 12/22 Grazyna Dunham is a 74 year old female who tripped and fell 2023, sustaining contusion of her left head, left shoulder, and left chest. She did not pass out, but was feeling fatigued and bruised. She took Tylenol twice a day during the day and a hydrocodone tablet prescribed from the ER at night. Her CT scan, shoulder xray, and rib xrays were negative. However, she also gave a history of exertional chest pains for the past 3 weeks, triggered by usual walks up a hill and relieved by rest. She had a cardiology evaluation several months ago, but it seems this was a CAC scan. Review of Systems Constitutional: Negative for fatigue. Respiratory: Positive for chest tightness. Negative for cough and shortness of breath. Cardiovascular: Positive for chest pain. Negative for palpitations and leg swelling. Gastrointestinal: Negative for abdominal pain. Genitourinary: Negative. Neurological: Negative. ACTIVE PROBLEM LIST Esophageal Reflux H/O Bilateral Mastectomy Neuropathic Pain, Leg, Right Osteopenia of Multiple Sites Other Low Back Pain Sleep Apnea Mild Memory Disturbance History of Breast Cancer Primary Osteoarthritis of Right Knee Multiple Thyroid Nodules Hyperlipidemia Social History Tobacco Use Smoking status: Never Smokeless tobacco: Never Substance Use Topics Alcohol use: Yes Alcohol/week: 2.0 standard drinks of alcohol Types: 2 Standard drinks or equivalent per week Comment: 1 glass of wine Drug use: No Current Outpatient Medications Medication Sig gabapentin (NEURONTIN) 300 mg capsule Take 1 capsule by mouth three times a day for 180 days. Do not start before July 01, 2023. celecoxib (CELEBREX) 200 mg capsule Take 1 capsule by mouth once daily as needed for pain (back pain). lactase (LACTAID FAST ACT ORAL) Take by mouth. MAGNESIUM ORAL Take by mouth. calcium carbonate-vitamin D (CALCIUM 500 WITH VITAMIN D) 500-125 mg-unit ORAL Tab No current facility-administered medications for this visit. Objective BP 114/64 (BP Site: Left Arm, BP Position: Sitting, BP Cuff Size: Regular Adult) Pulse 63 Temp 36.3 ?C (97.3 ?F) Resp 12 Ht 167.6 cm (5' 6) Wt 67.8 kg (149 lb 7.6 oz) SpO2 96% BMI 24.13 kg/m? Physical Exam Constitutional: General: She is not in acute distress. Cardiovascular: Rate and Rhythm: Normal rate and regular rhythm. Heart sounds: No murmur heard. No gallop. Pulmonary: Breath sounds: Normal breath sounds. Musculoskeletal: Right lower leg: No edema. Left lower leg: No edema. Neurological: General: No focal deficit present. Mental Status: She is alert. Assessment and Plan 1. Medicare annual wellness visit, subsequent - ICD9: V70.0, ICD10: Z00.00 (primary diagnosis) - See wellness visit. 2. Contusion of left chest wall, subsequent encounter - ICD9: V58.89, 922.1, ICD10: S20.212D - Continue care. Also use Celebrex. 3. Contusion of left shoulder, subsequent encounter - ICD9: V58.89, 923.00, ICD10: S40.012D - See above. 4. Closed head injury, subsequent encounter - ICD9: V58.89, 959.01, ICD10: S09.90XD - See above. 5. Fall, subsequent encounter - ICD9: V58.89, E888.9, ICD10: W19.XXXD - Fall precautions. 6. Chest pain, unspecified type - ICD9: 786.50, ICD10: R07.9 Chest pain of unclear etiology, patient with significant risk factor(s) of family history of early coronary heart disease - ECG COMPLETE normal. - I contacted [facility], and recommended patient be scheduled for a stress test. She will relay to provider. Patient was instructed to expect call early next week. She was also instructed to go to the ER for any worsening of symptoms. 7. Screening for depression - ICD9: V79.0, ICD10: Z13.31 - DEPRESSION SCREENING 8. Encounter for screening examination for other mental health and behavioral disorders - ICD9: V79.8, ICD10: Z13.39 - ANXIETY SCREENING Garo Elkins MD Allergies As of Date: 04/15/2024 Noted Allergy Reaction IODINATED CONTRAST MEDIA 12/15/2013 9 - Itching Date Reviewed: 04/15/2024 Reviewed by: Jessie Joseph LPN - Fully Assessed Reason for Visit: ED Follow-up [821] Cmt: fell on Thursday tripped on step, c/o rib, chest and head pain 12/22 Primary Visit Diagnosis:Medicare annual wellness visit, subsequent [Z00.00] Other Visit Diagnoses:Contusion of left chest wall, subsequent encounter [S20.212D] Contusion of left shoulder, subsequent encounter [S40.012D] Closed head injury, subsequent encounter [S09.90XD] Fall, subsequent encounter [W19.XXXD] Chest pain, unspecified type [R07.9] Screening for depression [Z13.31] Encounter for screening examination for other mental health and behavioral disorders [Z13.39] Order(s):ECG COMPLETE [ECG01] Order #: [id number]. #:[id number]--[id number] DEPRESSION SCREENING [] Order #: [id number]: 1 ANXIETY SCREENING [] Order #: [id number]: 1 ADVANCE CARE PLAN DISCUSSION [] Order #: [id number]: 1 Prescriptions as of 04/18/2024 - gabapentin (NEURONTIN) 300 mg capsule Take 1 capsule by mouth three times a day for 180 days. Do not start before July 01, 2023. - celecoxib (CELEBREX) 200 mg capsule Take 1 capsule by mouth once daily as needed for pain (back pain). - lactase (LACTAID FAST ACT ORAL) Take by mouth. - MAGNESIUM ORAL Take by mouth. - calcium carbonate-vitamin D (CALCIUM 500 WITH VITAMIN D) 500-125 mg-unit ORAL Tab Problem List As Of Date 04/15/2024 Noted Resolved Dysphagia [787.2] 12/29/2022 ESOPHAGEAL REFLUX [K21.9] Abdominal pain, left lower quadrant [R10.32] 06/27/2022 Diverticulosis of colon (without mention of hem* 06/27/2022 Internal hemorrhoids without mention of complic* 06/27/2022 Acute gastritis without mention of hemorrhage [*08/05/2005 06/27/2022 Porokeratosis [Q82.8] 03/26/2011 06/27/2022 Trigger finger [M65.30] 04/27/2013 06/27/2022 Hallux rigidus [M20.20] 05/09/2013 06/27/2022 Radiculopathy, cervical region [M54.12] 08/24/2015 06/27/2022 Carpal tunnel syndrome, right [G56.01] 07/23/2017 06/27/2022 Screening for breast cancer [Z12.39] 11/18/2018 11/18/2018 H/O bilateral mastectomy [Z90.13] 11/18/2018 Neuropathic pain, leg, right [M79.2] Osteopenia of multiple sites [M85.89] 01/27/2006 Other low back pain [M54.59] 09/20/2021 Sleep apnea [G47.30] 06/27/2022 Mild memory disturbance [R41.3] 06/27/2022 History of breast cancer [Z85.3] 06/27/2022 Primary osteoarthritis of right knee [M17.11] 12/29/2022 Multiple thyroid nodules [E04.2] 12/29/2022 Hyperlipidemia [E78.5] 07/01/2023 Other instructions from your clinician: SEE DR. SONALI VARGAS FOR STRESS TEST. I WILL CALL THEM WELL. GO TO ER FOR ANY WORSENING OF ANGINA. Screening schedule The following prevention plan is recommended: DTaP,Tdap,Td Vaccine(1 - Tdap) Never done Shingrix Vaccine(2 of 2) due on 05/19/2020 RSV Vaccine(1 - 1-dose 75+ series) Never done Influenza Vaccine(1) due on 02/14/2024 WHAT YOU CAN DO TO PREVENT FALLS Many falls can be prevented. By making some changes, you can lower your chances of falling. Four things YOU can do to prevent falls for you* and your caregiver 1. Begin a regular exercise program Exercise is one of the most important ways to lower your chances of falling. It makes you stronger and helps you feel better. Exercises that improve balance and coordination (like Geovanni Chi) are the most helpful. Lack of exercise leads to weakness and increases your chances of falling. Ask your doctor or health care provider about the best type of exercise program for you. 2. Have your health care provider review your medicines Have your doctor or pharmacist review all the medicines you take, even zlln-cmm-fttilqf medicines. As you get older, the way medicines work in your body can change. Some medicines, or combinations of medicines, can make you sleepy or dizzy and can cause you to fall. 3. Have your vision checked Have your eyes checked by an eye doctor at least once a year. You may be wearing the wrong glasses or have a condition like glaucoma or cataracts that limits your vision. Poor vision can increase your chances of falling. 4. Make your home safer About half of all falls happen at home. To make your home safer: Remove things you can trip over (like papers, books, clothes, and shoes) from stairs and places where you walk. Remove small throw rugs or use double-sided tape to keep the rugs from slipping. Keep items you use often in cabinets you can reach easily without using a step stool. Have grab bars put in next to your toilet and in the tub or shower. Use non-slip mats in the bathtub and on shower floors. Improve the lighting in your home. As you get older, you need brighter lights to see well. Hang light-weight curtains or shades to reduce glare. Have handrails and lights put in on all staircases. Wear shoes both inside and outside the house. Avoid going barefoot or wearing slippers. For more information, contact: Centers for Disease Control and Prevention www.cdc.gov/injury * This information may not apply if you have certain medical conditions. Disposition: Return in about 6 months (around 10/13/2024), or if symptoms worsen or fail to improve. Follow-up and Disposition History for Encounter Date Provider Department Center 04/15/2024 [id number] ELKINS [facility] Encounter Status:Closed by GARO ELKINS on 04/18/24 PROGRESS Observed: 04/15/2024 1:33 PM Status: COMPLETED Source: [facility] HNO ID: [id number] Author: BETI BRANCH MA Service: ? Author Type: Textile Chemist Type: Progress Notes Filed: 04/15/2024 13:43 Note Text: POPULATION HEALTH NAVIGATION OUTREACH Action/FYI Community Monitoring Navigation Pool/ACM Discuss/Due for: ED Follow Up Fall We are forwarding this patient to Network Navigation to schedule a [facility] ED 04/12/24 PCP follow-up appointment. Outcome: 1st attempt - Spoke to patient Scheduled ED Follow Up Reason for Outreach Community Monitoring/Network Navigator Pools AND Phone Line: [facility] Patient Contacted: Spoke to patient/parent/or legal guardian Patient identified by name and : Yes Community Monitoring/Network Navigator Pools AND Phone Line actions taken: Patient scheduled: ER Follow-up 04/15/2024 in [facility] with GARO ELKINS - ED Follow Up - PER RN, Angel Navigation Signature: Beti Branch MA April 15, 2024 1:33 PM PROGRESS Observed: 04/15/2024 1:15 PM Status: COMPLETED Source: [facility] HNO ID: [id number] Author: NIMO GAVIRIA RN Service: ? Author Type: Registered Nurse Type: Progress Notes Filed: 04/15/2024 13:21 Note Text: Summary: ED utilization review per request of payer ACM LEODAN RN Patient identified by name and date of . Reason for review or outreach: Chart Review [facility] Emergency Department Utilization REQUESTED ACTION/FYI: Please see ED Utilization summary below: A follow-up appointment is not noted in patient's record. We are forwarding this patient to Network Navigation to schedule a [facility] ED 04/12/24 PCP follow-up appointment. Thank you Exclusion Criteria - Does not meet exclusion criteria ED DIAGNOSES/REASON(S) FOR ED USE: [facility] ED 04/12/24 Dx Fall Head Injury (Adult) ED Bruise, Rib ED Shoulder Bruise OTHER FINDINGS/SUMMARY: No rib fractures, negative CXR, Head CT Patient Attributed To: ANATOLY Payer: Hans DAILY Action Taken: Referrals/Routed: Population Health Navigation: Appointment. Router to [facility] [[id number]] Contact made with patient: No, Chart review only. Signature: Nimo Gaviria MSN,RN,[facility] Associate Pathologist Management Contract RN [phone] CNPTOUTREACH Observed: 04/15/2024 12:00 AM Status: COMPLETED Source: [facility] Patient Outreach ([facility]) GRAZYNA DUNHAM ([id number]) 1950 F Date Time Provider Department 04/15/24 NIMO GAVIRIA During your visit today, we recorded the following information about you: Nimo Gaviria RN 04/15/2024 1:21 PM Signed ACM LEODAN RN Patient identified by name and date of . Reason for review or outreach: Chart Review [facility] Emergency Department Utilization REQUESTED ACTION/FYI: Please see ED Utilization summary below: A follow-up appointment is not noted in patient's record. We are forwarding this patient to Network Navigation to schedule a [facility] ED 04/12/24 PCP follow-up appointment. Thank you Exclusion Criteria - Does not meet exclusion criteria ED DIAGNOSES/REASON(S) FOR ED USE: [facility] ED 04/12/24 Dx Fall Head Injury (Adult) ED Bruise, Rib ED Shoulder Bruise OTHER FINDINGS/SUMMARY: No rib fractures, negative CXR, Head CT Patient Attributed To: JOAOE Payer: Hans KILLIAN Action Taken: Referrals/Routed: Population Health Navigation: Appointment. Router to [employer] PSS POOL [[id number]] Contact made with patient: No, Chart review only. Signature: Nimo KIM,RN,[facility] Associate Pathologist Management Contract MAVIS [phone] Beti Branch MA 04/15/2024 1:43 PM Signed POPULATION HEALTH NAVIGATION OUTREACH Action/I Community Monitoring Navigation Pool/ACM Discuss/Due for: ED Follow Up Fall We are forwarding this patient to Network Navigation to schedule a [facility] ED 04/12/24 PCP follow-up appointment. Outcome: 1st attempt - Spoke to patient Scheduled ED Follow Up Reason for Outreach Community Monitoring/Network Navigator Pools AND Phone Line: ACM Patient Contacted: Spoke to patient/parent/or legal guardian Patient identified by name and : Yes Community Monitoring/Network Navigator Pools AND Phone Line actions taken: Patient scheduled: ER Follow-up 04/15/2024 in [facility] with GARO ELKINS - ED Follow Up - PER Angel GAMBLE Signature: Beti Branch MA April 15, 2024 1:33 PM Allergies As of Date: 04/15/2024 Noted Allergy Reaction IODINATED CONTRAST MEDIA 12/15/2013 9 - Itching Date Reviewed: 04/12/2024 Reviewed by: Zoe Orourke LPN - Fully Assessed Reason for Visit: ACM LEODAN RN [[id number]] Cmt: ED utilization review per request of payer Prescriptions as of 04/15/2024 - gabapentin (NEURONTIN) 300 mg capsule Take 1 capsule by mouth three times a day for 180 days. Do not start before July 01, 2023. - celecoxib (CELEBREX) 200 mg capsule Take 1 capsule by mouth once daily as needed for pain (back pain). - lactase (LACTAID FAST ACT ORAL) Take by mouth. - MAGNESIUM ORAL Take by mouth. - calcium carbonate-vitamin D (CALCIUM 500 WITH VITAMIN D) 500-125 mg-unit ORAL Tab Problem List As Of Date 04/15/2024 Noted Resolved Dysphagia [787.2] 12/29/2022 ESOPHAGEAL REFLUX [K21.9] Abdominal pain, left lower quadrant [R10.32] 06/27/2022 Diverticulosis of colon (without mention of hem* 06/27/2022 Internal hemorrhoids without mention of complic* 06/27/2022 Acute gastritis without mention of hemorrhage [*08/05/2005 06/27/2022 Porokeratosis [Q82.8] 03/26/2011 06/27/2022 Trigger finger [M65.30] 04/27/2013 06/27/2022 Hallux rigidus [M20.20] 05/09/2013 06/27/2022 Radiculopathy, cervical region [M54.12] 08/24/2015 06/27/2022 Carpal tunnel syndrome, right [G56.01] 07/23/2017 06/27/2022 Screening for breast cancer [Z12.39] 11/18/2018 11/18/2018 H/O bilateral mastectomy [Z90.13] 11/18/2018 Neuropathic pain, leg, right [M79.2] Osteopenia of multiple sites [M85.89] 01/27/2006 Other low back pain [M54.59] 09/20/2021 Sleep apnea [G47.30] 06/27/2022 Mild memory disturbance [R41.3] 06/27/2022 History of breast cancer [Z85.3] 06/27/2022 Primary osteoarthritis of right knee [M17.11] 12/29/2022 Multiple thyroid nodules [E04.2] 12/29/2022 Hyperlipidemia [E78.5] 07/01/2023 Encounter Status:Closed by NIMO GAVIRIA on 04/15/24 PROGRESS Observed: 04/12/2024 11:38 AM Status: COMPLETED Source: [facility] HNO ID: [id number] Author: KEITH MITTAL APRN.ROD MACHINE OPERATOR Service: ? Author Type: Nurse Practitioner Type: Progress Notes Filed: 04/12/2024 11:39 Note Text: Fell yesterday and hit her head. Said she has a headache and feels off. Also has complaints of pain in several different locations. Patient is not on blood thinners but says when she moves her head it can make the pain worse and puts pain in the left eye. Patient is being referred to the ER at this time. For an evaluation patient was okay with this care plan. CNOV Observed: 04/12/2024 11:30 AM Status: COMPLETED Source: [facility] Office Visit (WSTR) GRAZYNA DUNHAM ([id number]) 1950 F Date Time Provider Department 04/12/24 11:30 [facility] During your visit today, we recorded the following information about you: Temperature Pulse Respiration Blood pressure 97.7 degrees 61/minute 18/minute 133/83 Weight 68 kg Keith Mittal APRN.ROD MACHINE OPERATOR 04/12/2024 11:39 AM Signed Fell yesterday and hit her head. Said she has a headache and feels off. Also has complaints of pain in several different locations. Patient is not on blood thinners but says when she moves her head it can make the pain worse and puts pain in the left eye. Patient is being referred to the ER at this time. For an evaluation patient was okay with this care plan. Allergies As of Date: 04/12/2024 Noted Allergy Reaction IODINATED CONTRAST MEDIA 12/15/2013 9 - Itching Date Reviewed: 04/12/2024 Reviewed by: Zoe Orourke LPN - Fully Assessed Reason for Visit: Fall [218] Cmt: Fell on left side x 1 day, tripped on sidewalk, hit shoulder and having pain, rib/ under armpit pain, hit knees, Primary Visit Diagnosis:Pain [R52] Other Visit Diagnosis:Headache, unspecified headache type [R51.9] Prescriptions as of 04/12/2024 - gabapentin (NEURONTIN) 300 mg capsule Take 1 capsule by mouth three times a day for 180 days. Do not start before July 01, 2023. - celecoxib (CELEBREX) 200 mg capsule Take 1 capsule by mouth once daily as needed for pain (back pain). - lactase (LACTAID FAST ACT ORAL) Take by mouth. - MAGNESIUM ORAL Take by mouth. - calcium carbonate-vitamin D (CALCIUM 500 WITH VITAMIN D) 500-125 mg-unit ORAL Tab Medication notes this encounter MAGNESIUM ORAL >> Zoe Orourke LPN 04/12/2024 11:27 AM >> ZOE OROURKE Apr 12, 2024 11:27 AM Problem List As Of Date 04/12/2024 Noted Resolved Dysphagia [787.2] 12/29/2022 ESOPHAGEAL REFLUX [K21.9] Abdominal pain, left lower quadrant [R10.32] 06/27/2022 Diverticulosis of colon (without mention of hem* 06/27/2022 Internal hemorrhoids without mention of complic* 06/27/2022 Acute gastritis without mention of hemorrhage [*08/05/2005 06/27/2022 Porokeratosis [Q82.8] 03/26/2011 06/27/2022 Trigger finger [M65.30] 04/27/2013 06/27/2022 Hallux rigidus [M20.20] 05/09/2013 06/27/2022 Radiculopathy, cervical region [M54.12] 08/24/2015 06/27/2022 Carpal tunnel syndrome, right [G56.01] 07/23/2017 06/27/2022 Screening for breast cancer [Z12.39] 11/18/2018 11/18/2018 H/O bilateral mastectomy [Z90.13] 11/18/2018 Neuropathic pain, leg, right [M79.2] Osteopenia of multiple sites [M85.89] 01/27/2006 Other low back pain [M54.59] 09/20/2021 Sleep apnea [G47.30] 06/27/2022 Mild memory disturbance [R41.3] 06/27/2022 History of breast cancer [Z85.3] 06/27/2022 Primary osteoarthritis of right knee [M17.11] 12/29/2022 Multiple thyroid nodules [E04.2] 12/29/2022 Hyperlipidemia [E78.5] 07/01/2023 Encounter Status:Closed by KEITH MITTAL on 04/12/24 OFFICE VISIT Observed: 03/30/2024 11:00 AM Status: COMPLETED Source: [facility] [id number] Grazyna Dunham 1949 F Date Provider Department Center 03/30/2024 [facility] ISAAC None No family history on file Level of Service:55880 [place] OFFICE/OUTPATIENT ESTABLISHED MOD MDM 30 MIN Reason for Visit and Comments: Follow-up [211459] - Right TKA 1 yr DOS 03-24-23 PROGRESS NOTE Observed: 03/30/2024 11:00 AM Status: COMPLETED Source: [facility] [address] [place] [address] [place] [address] Dept: [phone] Dept 03/30/2024 Chief Complaint Patient presents with Follow-up Right TKA 1 yr DOS 03-24-23 Subjective: Grazyna is approximately 1 year(s) out from a right total knee arthroplasty. Pain is mild. Patient has noted issues with: numbness/tingling in right leg, starts at knee, down to ankle . Assistive device for ambulation: none. Pre-operative symptoms are improved. The patient is able to walk a few blocks and is able to use stairs. Patient reports right calf pain and swelling around knee. Also, here to discuss left hip. Worsening over the last 6 months. Wants to know what to do. ED visit since surgery: No Hospital re-admit since surgery: No Complication since surgery: No Review of Systems Constitutional: Negative for activity change. HENT: Negative for congestion. Cardiovascular: Negative for leg swelling. Musculoskeletal: Positive for arthralgias, gait problem and joint swelling. Skin: Negative for wound. Neurological: Negative for weakness. Objective: Ht 5' 6 (1.676 m) Wt 140 lb (63.5 kg) BMI 22.60 kg/m? Grazyna overall looks well and comfortable. Gait: normal. Knee incision(s): healing well. Swelling is absent. Knee ROM shows flexion 120, extension 0. The knee is stable to varus/valgus stress <6 degrees. No evidence of DVT seen on physical exam. RIGHT HIP: Skin is warm, dry and intact. There are no rashes, lesions, or obvious scars. No tenderness to palpation. Greater trochanter is not tender. ROM shows flexion 120, IR 20, ER 40, without pain. Stinchfield exam: negative. +PF/DF/EHL. SILT distally. DP/PT palpable. Straight leg raise negative for inciting radicular symptoms. LEFT HIP: Skin is warm, dry and intact. There are no rashes, lesions, or obvious scars. No tenderness to palpation. Greater trochanter is not tender. ROM shows flexion 120, IR 20, ER 40, with pain. Stinchfield exam: positive. +PF/DF/EHL. SILT distally. DP/PT palpable. Straight leg raise negative for inciting radicular symptoms. The patient does have a leg length discrepancy and measures 4-5mm short on the left. Ortho Exam XRAYS: 03/30/2024 images obtained by outside radiology department independently reviewed by myself today in office. Indication: Status post right total knee arthroplasty. Exam Ordered: Radiographs taken today include an AP standing, lateral, and sunrise view of the right knee. Details of Examination: Exam shows a well fixed, well positioned total knee arthroplasty with no evidence of wear, osteolysis, fracture, or loosening. Patella appears to be tracking well within the trochlear groove of the prosthesis. Impression: Status post right total knee arthroplasty, implant in good position with no abnormality. Indication: Left hip pain Exam Ordered: Radiographs include an anteroposterior pelvis, an anteroposterior and lateral view of the proximal femur including the hip joint. Details of Examination: Exam shows evidence of significant joint space narrowing (bone on bone), significant peripheral osteophyte formation, and subchondral sclerosis; all consistent with end-stage degenerative changes of the hip. No other significant findings are noted. Impression: Degenerative Arthritis, left hip Assessment 1. S/P total knee arthroplasty, right 2. Left hip pain Plan Right knee: Grazyna will continue with WBAT and therapy. I would like to check the patient back in 1 year(s) with new knee X-rays. We reviewed signs and symptoms of common post-operative issues including infection. We reviewed the need for prophylaxis with dental or other procedures. She will call and return sooner for questions, issues, or concerns. Left hip: The above findings were discussed with patient length. We discussed the options of conservative versus possible surgical management of their hip. At this point considering the patient's level of activity, pain, and radiographic findings, I recommended continued conservative management. This treatment will consist of... ~ Activity modification ~ NSAID's (OTC preferred) - The risks and benefits of NSAID medications were discussed. NSAID's can have potential renal/cardiac/gastric side effects. ~ Tylenol ~ Will fu in May to discuss next steps, thinking about getting surgery going after New Year. The risks, benefits, and alternatives to all of the treatment options were thoroughly explained. Patient will call us with any questions or concerns regarding this plan or if any significant issues arise. Follow-up May 2024. Electronically signed by Altaf Metz M.D. 03/30/2024 at 11:05 AM. 36 Observed: 03/28/2024 4:31 PM Status: COMPLETED Source: [employer] [facility] Name of caller: Grazyna Contact phone number: [phone] Relationship to Patient: patient Provider: [facility] Practice: Ortho Chief Complaint/Reason for Call: Patient asking to have an xray of her left hip as well at her appt on 03/30/24. She states she lives far away and would prefer not to make multiple trips. Please advise. Best time of day caller can be reached: Any Patient advised that office/PCP has 24-48 business hours to return their call: Yes ALLERGIES DATE TYPE / CODE NAME / CODE REACTION SEVERITY SOURCE 12/15/2013 Drug Class/[id number]( SNOMED CT) IODINATED CONTRAST MEDIA ITCHING [facility] ENCOUNTERS ADMIT/DISCHARGE ACCOUNT NUMBER ADMITTING ENCOUNTER CLASS LOC ATION SOURCE 03/02/2025/ 5 [id number] [id number] 10/28/2024/ 5 [id number] Ambulatory [facility]:MIKO [facility] 10/14/2024/ 5 [id number] Ambulatory [facility]:MARY [facility] 10/13/2024 [id number] [facility] 10/13/2024/ 5 [id number] Ambulatory [facility]:CASSY [facility] 04/15/2024/ 4 [id number] Ambulatory [facility]:CASSY [facility] 04/12/2024/ 4 [id number] Ambulatory [facility]:SUSI [facility] 03/30/2024/ 4 [id number] Ambulatory [facility] [id number] [facility] 03/30/2024/ 4 [id number] [facility]ulatory [facility] [id number] [facility] 03/30/2024/ 4 [id number] Ambulatory [facility] [id number] [facility] PAYERS ENCOUNTER GUARANTOR PAYER SUBSCRIBER SOURCE 03/02/2025 Primary Insuranc e:[employer] MEDICARE PPOPolicy Number: [id number] Date:2553-04-17Xnqg Name:Shemar BARTHB: [id number] [address] 10/28/2024 Primary Insuranc e:[employer] MEDICARE PPOPolicy Number: [id number] Date:4697-55-87Gmvl Name:Shemar BARTHB: [id number] [place], [place] [id number] [place] [address] 10/14/2024 Primary Insuranc e:[employer] MEDICARE PPOPolicy Number: [id number] Date:9046-71-18Dyvi Name:Shemar BARTHB: [id number] [place], [place] [id number] [place] [address] 10/13/2024 Primary Insuranc e:[employer] MEDICARE PPOPolicy Number: [id number] Date:9785-34-35Kmis Name:Shemar BARTHB: [id number] [place] [address] [facility] 10/13/2024 Primary Insuranc e:[employer] MEDICARE PPOPolicy Number: [id number] Date:0665-35-39Cjgv Name:Shemar DUNHAMDOB: [id number] [place] [address] [facility] 04/15/2024 Primary Insuranc e:[employer] MEDICARE PPOPolicy Number: [id number] Date:8023-91-01Slge Name:Shemar DUNHAMDOB: [id number] [place], [place] [id number] [place] [address] 04/12/2024 Primary Insuranc e:[employer] MEDICARE PPOPolicy Number: [id number] Date:5502-61-56Pwvk Name:Shemar DUNHAMDOB: [id number] [place] [address] [facility] 03/30/2024 Primary Insuranc e:HU[employer]NA MEDICARE ADVANTAGEPolicy Number: [id number] Date:9966-15-26Mdgq Name:Medicare HMO GRAZYNA DUNHAMDOB: [id number] [place] [address] [facility] 03/30/2024 Primary Insuranc e:HU[employer] MEDICARE ADVANTAGEPolicy Number: [id number] Date:0161-42-67Jgad Name:Medicare HMO GRAZYNA DUNHAMDOB: [id number] [place] [address] [facility] 03/30/2024 Primary Insuranc e:HU[employer] MEDICARE ADVANTAGEPolicy Number: [id number] Date:5161-00-97Zvpz Name:Medicare O GARZYNA RAMIREZSODOB: [id number] [place] [address] [facility]
[2025-03-14] MEDS: Lactated Ringers 1,000 ML 15 ML IV (06:15)
[2025-03-14 06:25] VITALS: BP 121/77; PULSE 57; RESP 16; TEMP 36.4; O2SAT 100; BMI 24.7
--- NOTE | 2025-03-14 07:18 | PCM.PRE.AN2 ---
ASA Classification* ASA Classification ASA Classification: 2 Assessment & Plan Anesthesia* Anesthesia Assessment Anesthesia Assessment: Discussed sedation and/or anesthesia options, risks, benefits, and alternatives with patient/parents/legal guardian/POA. Questions invited. The patient/parents/legal guardian/POA seems to understand and agrees to proceed with anesthesia plan. Reviewed the physical assessment, medical history, allergy history and patient home medications list prior to surgery/procedure/anesthetic and documented any changes. Performed airway and anesthesia risk assessments. Anesthesia Type Anesthesia Type: MAC History Source History Obtained from:: Patient and Chart Anesthesia Focused Assessment* Temperature: 97.5 F Pulse Rate: 57 Blood Pressure: 121/77 Respiratory Rate: 16 Pulse Ox: 100 Oxygen Delivery Method: Room Air Airway Assessment Mouth opens: >3 cm Mallampati Score: II Teeth Condition: Intact Neck Range of motion (ROM): Limited ROM (Slight Decrease) Labs Anesthesia Preop lab: CBC WBC, (4.4-11.0) 5.2 K/mm3 01/29/22, 11: RBC, (4.2-5.4) 4.07 M/mm3 L 01/29/22, 11: Hgb, (12.0-15.0) 12.3 g/dL 01/29/22, 11: Hct, (37-47) 37.4 % 01/29/22, 11: Plt Count, (150-450) 288 K/mm3 01/29/22, 11:01 CHEMISTRY Potassium, (3.5-5.1) 4.5 mmol/L 01/29/22, 11: Sodium, (136-145) 142 mmol/L 01/29/22, 11:01 BUN, (7-18) 15 mg/dL 01/29/22, 11:01 Creatinine, (0.55-1.02) 0.84 mg/dL 01/29/22, 11: Glucose, (74-106) 99 mg/dL 01/29/22, 11: TSH, (0.358-3.74) 3.40 uIU/mL 01/29/22, 11:01 COAG Pre-Assessment Diagnosis/Proposed Procedure Planned Operative Procedure(s): EXCISION MUCOUS CYST LEFT INDEX FINGER Anesthesia History 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 When Was Last Pacemaker Check QUESTION #4 FULL TEXT: You/Your Family Experience fever (hyperthermia) with Anesthesia Last Oral Intake Last Oral intake: Last Oral Intake NPO since 05:00 03/14/25 06:25 Meds taken in AM with sips of water? 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 Female Yes 02/28/25 08:58 HX of Motion Sickness No 02/28/25 08:58 HX of N/V After Surgery No 02/28/25 08:58 Non-Smoker Yes 02/28/25 08:58 Duration of Surgery greater No 02/28/25 08:58 than 60 minutes Number of Risk Factors 2 02/28/25 08:58 PONV Score Moderate Risk 02/28/25 08:58 Height & Weight Height & Weight: Anesthesia: Height & Weight Height 5 ft 5 in 03/14/25 06:25 Weight: 67.585 kg 03/14/25 06:25 Body Mass Index (BMI) 24.7 03/14/25 06:25 Respiratory Assessment Respiratory Assessment - semiconductor wafers saw operator: Respiratory Tract Infection Hx - semiconductor wafers saw operator Hx Respiratory Tract Infection No 02/28/25 08:58 STOP Sleep Apnea STOP Sleep Apnea - semiconductor wafers saw operator: STOP Sleep Apnea - semiconductor wafers saw operator Hx Hypertension No 02/28/25 08:58 Hx Sleep Apnea Yes 02/28/25 08:58 CPAP Yes 02/28/25 08:58 BIPAP No 02/28/25 08:58 Do you snore loudly (louder than talking or can be heard Do you often feel tired/ fatigued/ sleepy during daytime? Has anyone observed you stop breathing during sleep? STOP Results Positive 02/28/25 08:58 QUESTION #5 FULL TEXT : Do you snore loudly (louder than talking or can be heard through closed doors)? 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 Specify any problems Hx of Preganancy in last 3 No 02/28/25 08:58 Months Nurse Filling Out Transfusion DSCHRIBER 02/28/25 08:58 & Questions: Date: 02/28/25 02/28/25 08:58 Time: 08:59 02/28/25 08:58 Patient unable to answer at this time (ie. confused, unrespo /Reproduction History /Reproductive History - semiconductor wafers saw operator: /Reproductive Hx- semiconductor wafers saw operator Hx Now No 02/28/25 08:58 Gestational Age (in weeks): EDC: Hx Hx Para Hx Section SAB No 02/28/25 08:58 Active Medications Active Medications: Current Medications Generic Name Dose Route Start Last Admin Trade Name Freq PRN Reason Stop Dose Admin Cefazolin Sodium 2 gm/ Sodium 110 mls @ 200 mls/hr 03/14/25 07:30 Chloride IV 03/14/25 08:02 INTRAOP ONE Lactated Ringer's 1,000 mls @ 15 mls/hr 03/14/25 06:15 03/14/25 06:15 IV 15 mls/hr .Q48H ISAAC Administration PFSH Medical History History of Harry's esophagus Back problem Tinnitus Wears glasses Cancer High cholesterol History of hiatal hernia CPAP (continuous positive airway pressure) dependence Non-smoker Leg cramps History of echocardiogram History of stress test Cardiology follow-up encounter Hyperlipidemia Hypothyroidism GERD (gastroesophageal reflux disease) Osteopenia Osteoarthritis Neuropathy Breast cancer Arthritis Home Medications ?Medication ?Instructions ?Recorded ?Last Taken ?Type calcium-magnesium 750 mg-465 mg 1 tab PO DAILY 12/08/24 Unknown History tablet magnesium carb,citrate,oxide 100 mg PO DAILY 12/08/24 Unknown History (Magnesium Complex) ezetimibe 10 mg tablet (Zetia) 10 mg PO QDAY #30 tabs 12/20/24 03/14/25 Rx famotidine 20 mg tablet 20 mg PO QHS #90 tabs 01/23/25 Unknown Rx esomeprazole magnesium 40 mg 40 mg PO QDAY #90 caps 01/30/25 03/14/25 Rx capsule,delayed release Allergy/AdvReac Type Severity Reaction Status Date / Time Iodinated Contrast Media Allergy Itching Verified 03/14/25 06:22 (Iodinated Contrast Media - IV Dye) rosuvastatin AdvReac Myalgia Verified 03/14/25 06:22 Family History Mother Breast cancer Father Myocardial infarction, Onset Age: 42 Heart disease Hypertension High cholesterol Grandmother CVA (cerebral vascular accident) Sister Breast cancer Aunt Breast cancer Surgical History Hx of colonoscopy History of esophagogastroduodenoscopy (EGD) Hx of right cataract extraction Hx of left cataract extraction History of right knee joint replacement History of tonsillectomy History of surgery on right wrist History of bilateral carpal tunnel release History of foot surgery History of shoulder surgery H/O bilateral mastectomy History of hysterectomy Social History Smoking Status: Never smoker alcohol intake: current alcohol intake frequency: a few times a week substance use type: does not use caffeine: Yes Type: coffee Number of servings: 6 what type of physical activity do you participate in: none additional social history: pt denies vaping, denies marijuana use, denies edibles pt denies blood clots Review of Systems (Anesthesia) ROS Narrative System reviewed and no additional complaints, except as documented.
--- NOTE | 2025-03-14 07:23 | PCM.HP.STD ---
HPI - General HPI Narrative TARIK DUNHAM, is a 75 F who was seen in consultation for mucous cyst on the left index finger. The cyst has been present for approximately three months and is associated with drainage of a sticky substance, particularly when wet with associated swelling, soreness. The patient initially thought it was a wart and has been applying a topical treatment for 10 days as advised. The patient also reports a history of tendon rupture in the right hand, leading to numbness and pain, which she suspects might be related to nerve damage or carpal tunnel syndrome. She experiences numbness in the fingertips and uses gabapentin at night for relief. Since her previous visit she reports no changes in her medications, health status. Recently her cyst was swelling and causing achiness she states she popped it and has some drainage again. Denies redness, fever, chills, new numbness, tingling. ROS: - Dermatological: Reports mucous cyst on the left index finger with drainage. - Neurological: Reports numbness and pain in the right hand, particularly in the fingertips. [facility] Medical History (Updated 02/28/25 @ 09:05 by Luna Gomez) History of Harry's esophagus Back problem Tinnitus Wears glasses Cancer High cholesterol History of hiatal hernia CPAP (continuous positive airway pressure) dependence Non-smoker Leg cramps History of echocardiogram History of stress test Cardiology follow-up encounter Hyperlipidemia Hypothyroidism GERD (gastroesophageal reflux disease) Osteopenia Osteoarthritis Neuropathy Breast cancer Arthritis Home Medications ?Medication ?Instructions ?Recorded ?Last Taken ?Type calcium-magnesium 750 mg-465 mg 1 tab PO DAILY 12/08/24 Unknown History tablet magnesium carb,citrate,oxide 100 mg PO DAILY 12/08/24 Unknown History (Magnesium Complex) ezetimibe 10 mg tablet (Zetia) 10 mg PO QDAY #30 tabs 12/20/24 03/14/25 Rx famotidine 20 mg tablet 20 mg PO QHS #90 tabs 01/23/25 Unknown Rx esomeprazole magnesium 40 mg 40 mg PO QDAY #90 caps 01/30/25 03/14/25 Rx capsule,delayed release Allergy/AdvReac Type Severity Reaction Status Date / Time Iodinated Contrast Media Allergy Itching Verified 03/14/25 06:22 (Iodinated Contrast Media - IV Dye) rosuvastatin AdvReac Myalgia Verified 03/14/25 06:22 Family History Mother Breast cancer Father Myocardial infarction, Onset Age: 42 Heart disease Hypertension High cholesterol Grandmother CVA (cerebral vascular accident) Sister Breast cancer Aunt Breast cancer Surgical History (Updated 02/28/25 @ 09:05 by Luna Gomez) Hx of colonoscopy History of esophagogastroduodenoscopy (EGD) Hx of right cataract extraction Hx of left cataract extraction History of right knee joint replacement History of tonsillectomy History of surgery on right wrist History of bilateral carpal tunnel release History of foot surgery History of shoulder surgery H/O bilateral mastectomy History of hysterectomy Social History Smoking Status: Never smoker alcohol intake: current alcohol intake frequency: a few times a week substance use type: does not use caffeine: Yes Type: coffee Number of servings: 6 what type of physical activity do you participate in: none additional social history: pt denies vaping, denies marijuana use, denies edibles pt denies blood clots ROS ROS Narrative General: Denies fever, chills HEENT: Denies headaches, vision changes, sore throat Cardio: Denies chest pain, leg edema Pulmonary: Denies shortness of pain, cough, wheezing GI: Denies nausea, vomiting, diarrhea Vital Signs Vital Signs Vital Signs: 03/14/25 06:25 03/14/25 06:25 Temperature 97.5 F L Temperature Source Temporal Pulse Rate 57 L Respiratory Rate 16 Respiratory Pattern Normal Blood Pressure 121/77 H Blood Pressure Mean 91 Blood Pressure Source Monitor Blood Pressure Position Sitting Blood Pressure Location Left Arm Pulse Ox 100 Oxygen Delivery Method Room Air Weight Weight: 149 lb Body Mass Index (BMI) 24.7 Physical Exam Narrative Afebrile/VSS. Alert and oriented in bed in no acute distress No respiratory distress, speaks in full sentences without effort. Abdomen soft in all 4 quadrants Left upper extremity Left index finger mucoid cyst that is open without surrounding induration, erythema. Able to flex, extend MCP, PIP, difficulty with full DIP flexion due to swelling. Capillary refill less than 2 seconds, skin is pink, well-perfused. Assessment & Plan Assessment/Plan (1) Mucous cyst of digit of left hand: PLAN: Plan Presents today for elective left index finger mucoid cyst excision with Dr. Newell Plan for perioperative prophylactic antibiotic followed by oral antibiotics upon discharge today Will discharge with short course of oral oxycodone as well. Close follow-up.
--- NOTE | 2025-03-14 07:30 | CYST_PTH ---
PATIENT: TARIK DUNHAM [place] [facility] [id number] AGE/SX: 75/F ROOM: RE03/14/[address]: Dr. Jimmie Newell MD : 1950 BED: DIS: 03/14/2025 SPEC #: [id number] RECD: 03/14/25 10:07 STATUS: SHEREE REIvelisse #: [id number] JOSE: 03/14/25 07:[address]: Jimmie Newell DEPT: SURGICAL PATHOLOGY RECD BY: Gerry Ellison ENTERED: 03/14/25 10:47 SP TYPE: Cyst OTHR DR: Dr. Garo Steele MD Tissues: A - CYST Procedures: Surgery Specimen Level IV Comments: Called office on 03/15/25 at 2:52pm and spoke to Daniela. Notified her that case will be delayed due to case being sent to [facility]. HEADER OPERATION: Excision mucous cyst left index finger PRE-OP DIAGNOSIS: Mucous cyst of digit of left hand TISSUE SUBMITTED: A- Left index finger cyst contents MICROSCOPIC DIAGNOSIS A. Skin, left index finger, mucus cyst, biopsy: * Diagnosis is PENDING expert consultation at [facility]. An addendum report will follow with the Final Diagnosis. MICROSCOPIC DESCRIPTION Slides are reviewed. GROSS DESCRIPTION A. Received in formalin labeled with the patient's name and date of . Designated as left index finger cyst contents is a 0.6 x 0.4 x 0.1 cm aggregate of pink-solomon and white tissue fragments entirely submitted in 1 cassette. [place] 03/14/2025 CPT:38564 ADDENDUM ADDENDUM ADDENDUM ADDENDUM ADDENDUM ADDENDUM ADDENDUM ADDENDUM ADDENDUM ADDENDUM ADDENDUM ADDENDUM ADDENDUM ADDENDUM ADDENDUM ADDENDUM 03/20/2025 09:12 ADDENDUM 03/20/2025 09:12 ADDENDUM 03/20/2025 09:12 ADDENDUM 03/20/2025 09:12 ADDENDUM 03/20/2025 09:12 This addendum is added to incorporate an outside pathology consultation report. The case was examined at [facility] by Dr. Butler (#[id number]) and the following diagnosis was rendered. A. Skin, left index finger, mucus cyst, biopsy: Ganglion cyst. Microscopic Description: A. Histologic sections show a pseudocystic space containing fibroblasts and mucin. Initial and multiple deeper sections were examined. P63 is negative. Immunoperoxidase staining was performed by the [facility] Histologic Laboratory on sections cut from the paraffin block submitted by the outside facility. Please see complete above mentioned consultation report in EMR
[2025-03-14 07:31] VITALS: BP 121/77; PULSE 57; RESP 16; TEMP 36.4; O2SAT 100
--- NOTE | 2025-03-14 07:34 | PCM.PN.SRG ---
Subjective Subjective Patient has some baseline collateral ligament and slight DIP droop (mallet) in the left index finger. I discussed this with her in preoperative holding and she understands the baseline deformity and plan for incision over DIP joint with involution of the cyst over time after the underlying stock/osteophytes are debrided. She understands risks, benefits, and alternatives to the procedure. Objective Data Objective Data Vital Signs: Vital Signs Temp Pulse Resp BP Pulse Ox O2 Del Method 97.5 F L 57 L 16 121/77 H 100 Room Air 03/14/25 07:31 03/14/25 07:31 03/14/25 07:31 03/14/25 07:31 03/14/25 07:31 03/14/25 07:31 Oxygen Delivery Method Room Air Weight: 149 lb Body Mass Index (BMI) 24.7
[2025-03-14] MEDS: Cefazolin 1 GM/5 ML Vial 2 GM IV (07:41)
[2025-03-14] MEDS: Lactated Ringers 500 ML IV (07:41)
[2025-03-14] MEDS: Lidocaine 1% (5 ml sdv) 5 ML Vial 3 ML IV (07:45)
--- NOTE | 2025-03-14 07:45 | OP.PCM_ITS ---
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 [employer] Supervisor: Jessy Roman Tasks completed by first calender worker: Retracting Type of Anesthesia: Local MAC (7 cc of 50-50 mixture of 1% lidocaine with qu arter percent Marcaine) RN Documented Start/Stop Times: Operation Date: 03/14/25 07:30 Case Time Into Pre-Op 03/14/25 06:11 Out of Pre-Op 03/14/25 07:32 Anesthesia Start 03/14/25 07:39 Into Room 03/14/25 07:39 Procedure Start 03/14/25 07:56 Procedure End 03/14/25 08:22 Anesthesia End 03/14/25 08:25 Out of Room 03/14/25 08:25 Into Recovery 03/14/25 08:29 Into Phase II Recovery 03/14/25 08:44 Out of Recovery 03/14/25 08:44 Procedure Start Time: 07:56 Procedure Stop Time: 08:22 Select all DRAINS/GRAFTS/IMPLANTS that apply: None Estimated Blood Loss: Minimal Specimen collected: Yes Description of specimen(s) removed: Cyst stalk and osteophyte contents Description of surgery: Indications: Patient is a 75-year-old female with a draining mucous cyst in the eponychial fold of the left index finger. She presents today for excision. She understands the risks, benefits, and alternatives to the procedure, as well as the plan to debride the cyst stalk and osteophytes around the joint and let the cyst involute over time (no direct excision). Procedure details: Patient was correct identified in preoperative holding and taken back to the operating room where she was administered sedation and local anesthesia as noted above. She was prepped and draped in sterile fashion and all proper timeouts were performed. A 15 blade scalpel was used to make a direct incision over the DIP joint dorsally after turnicot was applied (care was taken to remove the turnicot at the end of the case). Dorsal veins were cauterized with bipolar electrocautery and care was taken to preserve the terminal slip insertion. 15 blade scalpel was used to enter the joint between the collateral ligaments and the terminal slip on the radial and ulnar aspects. A curette was used to debride osteophytes from within the joint and debride the stalk that was underneath the eponychial fold (where the cyst skin was present). The stalk and some osteophyte material was sent to pathology. The wound was irrigated with copious amounts normal saline and Irrisept. The turnicot was removed and hemostasis obtained with topical 1% lidocaine with 1-200,000 epinephrine (10 cc). The wound was closed with interrupted 4-0 nylon sutures and Xeroform, Verito, AlumaFoam splint (DIP joint extension) and Coban were applied. Patient tolerated the procedure well. She was awakened taken the PACU in stable condition. Postoperative plan: Continue DIP joint extension splinting for 1 month. Follow-up in 2 days for wound check before the weekend. She is prescribed 1 week of Keflex. Surgical Findings: Cyst stalk coming from the ulnar aspect of the dorsal DIP joint. Complications Complications: No
[2025-03-14] MEDS: PROPOFOL 18.18 MG IV (07:46)
[2025-03-14] MEDS: Midazolam 2 MG/2 ML Syringe 1 MG IV (07:49)
[2025-03-14] MEDS: fentaNYL 100 MCG/2 ML Ampul 75 MCG IV (07:55)
--- NOTE | 2025-03-14 08:12 | PCM.POST.ANE ---
Anesthesia: Postop Eval I Current Vital Signs Temperature: 98.7 F Pulse Rate: 62 Blood Pressure: 141/68 Respiratory Rate: 14 Pulse Ox: 97 Oxygen Delivery Method: Room Air Assessment Airway patent: Yes Spontaneous unlabored respirations: Yes Mental status: Awake nausea: No Vomiting: No Anesthesia Complication: No Fluid Hydration Crystalloid volume administer (ml): 500 Total IV fluid infused: 500 Progress Note Anesthesia document: Postop Eval 1 completed: Yes
[2025-03-14] MEDS: Lidocaine 1% /Epi 1:100 (20ml) 20 ML Vial (08:19)
[2025-03-14] MEDS: Lidocaine 1% (20 ml mdv) 20 ML Vial (08:20)
[2025-03-14 08:30] VITALS: BP 121/77; BP 141/65; BP 141/68; PULSE 52; PULSE 62; RESP 14; RESP 16; TEMP 36.9; TEMP 37.1; O2SAT 96; O2SAT 97
[2025-03-14 08:35] VITALS: BP 121/77; BP 146/63; PULSE 53; RESP 16; O2SAT 96
[2025-03-14 08:40] VITALS: BP 121/77; BP 148/58; PULSE 51; TEMP 36.3; O2SAT 96
--- NOTE | 2025-03-14 09:13 | POSTOPAN2_ITS ---
Anesthesia Postop Eval I Sum Postop Eval Completion status Anesthesia document: Postop Eval 1 completed: Yes Anesthesia Postop Eval I Summary Anesthesia Postop Eval I Summary: Anesthesia Postop Eval I: Assessment Summary Airway patent Yes 03/14/25 08:14 [email or web address] Spontaneous unlabored Yes 03/14/25 08:14 [email or web address] respirations Mental status Awake 03/14/25 08:14 [email or web address] nausea No 03/14/25 08:14 [email or web address] Vomiting No 03/14/25 08:14 [email or web address] Anesthesia Postop Eval I: Fluid Summary Crystalloid volume administer 500 03/14/25 08:14 [email or web address] (ml) Colloids volume administered ( ml) Blood Product volume administered (ml) Total IV fluid infused 500 03/14/25 08:14 [email or web address] Anesthesia Postop Eval I: Summary Notes Anesthesia Complication No 03/14/25 08:14 [email or web address] Anesthesia Complication Comment: Post-operative progress note Anesthesia: Postop Eval II Evaluation Mental status: Awake and Calm Pain Level: 1 nausea: No Vomiting: No Complications Anesthesia Complication: No
--- NOTE | 2025-03-14 09:13 | PCM.POSTANE2 ---
Anesthesia Postop Eval I Sum Postop Eval Completion status Anesthesia document: Postop Eval 1 completed: Yes Anesthesia Postop Eval I Summary Anesthesia Postop Eval I Summary: Anesthesia Postop Eval I: Assessment Summary Airway patent Yes 03/14/25 08:14 [email or web address] Spontaneous unlabored Yes 03/14/25 08:14 [email or web address] respirations Mental status Awake 03/14/25 08:14 [email or web address] nausea No 03/14/25 08:14 [email or web address] Vomiting No 03/14/25 08:14 [email or web address] Anesthesia Postop Eval I: Fluid Summary Crystalloid volume administer 500 03/14/25 08:14 [email or web address] (ml) Colloids volume administered ( ml) Blood Product volume administered (ml) Total IV fluid infused 500 03/14/25 08:14 [email or web address] Anesthesia Postop Eval I: Summary Notes Anesthesia Complication No 03/14/25 08:14 [email or web address] Anesthesia Complication Comment: Post-operative progress note Anesthesia: Postop Eval II Evaluation Mental status: Awake and Calm Pain Level: 1 nausea: No Vomiting: No Complications Anesthesia Complication: No
[2025-03-14 09:30] VITALS: BP 121/77
== END 2025-03-14 09:31 | disposition home or self-care (01) ==
LOC: SDC 06:00 → AC 06:05
PROVIDERS: PCP Internal Medicine; Referring Provider Surgery Plastic and Reconstructive Surgery; Visit Provider Surgery Plastic and Reconstructive Surgery
PROC: (CPT 26055; principal; 2025-03-14 07:20)
DX: M67.442 Ganglion, left hand (principal); K21.9 Gastro-esophageal reflux disease without esophagitis; Z79.899 Other long term (current) drug therapy
CPT/HCPCS: 26160; 01810; 88304; 88305; J2405

== ENCOUNTER → 2025-04-19 | Outpatient (CLI) | payer MEDICARE, SELFPAY ==
--- NOTE | 2025-04-19 15:19 | RAD_ITS ---
PROCEDURE: FINGER(S) MIN 2 VIEWS 04/19/2025 REASON FOR EXAM: LEFT INDEX FINGER TECHNIQUE: Procedure Code: RADFIN Modality: DX Procedure: Three-view left 2nd finger series. Laterality: Left COMPARISON: 03/03/2025. RAD/Finger(s) Min 2 Views IMPRESSION: Prominent arthritic changes with marked joint narrowing and cortical irregulari ty of the left 2nd distal interphalangeal joint is seen, fairly similar in appearance to the prior study of 01/31/2025, but perhap s with greater surrounding soft tissue swelling. This is concerning for inflammatory arthritis. Mild degenerative changes of the remaining portions of the 2nd ray appear stabl e. Stable alignment is seen. No acute fracture or dislocation is evident. Reading Location: [place] [id number]
== END | disposition home or self-care (01) ==
PROVIDERS: PCP Internal Medicine; Referring Provider Physician Assistant; Visit Provider Physician Assistant
DX: M67.442 Ganglion, left hand (principal)
CPT/HCPCS: 73140

== ENCOUNTER → 2025-04-20 | Outpatient (CLI) | payer MEDICARE, SELFPAY ==
--- OUTSIDE RECORDS SUMMARY | 2025-04-20 07:42 | XMS RPT_ITS | CCD ---
Author Organization [facility] Care Team Providers Care 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 Name Role Phone Unavailable Primary Care Provider Dr. Geovanni Gatica Chi Primary Care Provider Dr. Geovanni Foreman Chi Referring Provider Dr. Karolina Leong Attending Provider [phone] Dr. Karolina Leong Primary Care Provider Dr. Karolina Leong Referring Provider [phone] Dr. Haily Arredondo Attending Provider Dr. Karolina Leong Attending Provider [phone] Dr. Karolina Leong Primary Care Provider Dr. Karolina Leong Referring Provider Karolina Leong MD Primary Care Provider Karolina Leong MD Primary Care Provider Garo Steele MD Primary Care Provider Garo Steele MD Primary Care Provider Garo Steele Primary Care Provider Dr. Garo Steele Primary Care Provider Dr. Garo Steele Referring Provider Dr. Clay Jean Attending Provider Garo Steele Primary Care Provider Dr. Haily Arredondo Attending Provider Karolina Leong MD Primary Care Provider Jose RN, Sherry Unavailable Aris Metz MD, Altaf Unavailable Isaías COLEMAN, Altaf Unavailable Ted COLEMAN, Clay Chavez Primary Care Provider CLAY JEAN Primary Care Unavailable Salo COLEMAN, Karolina Primary Care Provider Cedric COLEMAN, Garo Yanez Primary Care Provider Wu SILK SCREEN LAYOUT DRAFTER.CYBER ENGINEER, Rosa M Unavailable Cedric COLEMAN, Dr. Wyman Primary Care Provider Cedric COLEMAN, Dr. Wyman Attending Provider Cedric COLEMAN, Dr. Wyman Referring Provider José SENIOR MANAGER MMCOE-CDangelo Attending Provider Steven SENIOR MANAGER MMCOE-C, Le Attending Provider Cedric COLEMAN, Dr. Wyman Primary Care Provider Cedric COLEMAN, Dr. Wyman Referring Provider Cedric COLEMAN, Dr. Wyman Attending Provider Angeles CUNNINGHAM, Dr. Dyer Attending Provider Angeles CUNNINGHAM, Dr. Dyer Other Provider Cedric COLEMAN, Dr. Wyman Attending Provider Steven SENIOR MANAGER MMCOE-C, Le Referring Provider Reece COLEMAN, Dr. Samuel Attending Provider Ted COLEMAN, Dr. Williamson Attending Provider Cedric COLEMAN, Dr. Wyman Primary Care Physician Cedric COLEMAN, Dr. Wyman Referring Provider Dr. Gomez Reynoso DO Attending Physician Angeles CUNNINGHAM, Dr. Dyer Nurse Practitioner Cedric COLEMAN, Dr. Wyman Attending Physician Harris SENIOR MANAGER MMCOE-C, Le Attending Physician Reece COLEMAN, Dr. Samuel Attending Physician Ted COLEMAN, Dr. Williamson Attending Physician Reece OCLEMAN, Dr. Samuel Referring Provider Reece COLEMAN, Dr. Samuel Nurse Practitioner Jessy Schaffer Attending Physician ALTAF METZ Attending Unavailable STEELE, GARO Primary Care Unavailable METZALTAF Chavez Attending Unavailable BROWN, JAYLAN Referring Unavailable STEELE, GARO Primary Care Unavailable BROWN, JAYLAN Attending Unavailable BROWN, JAYLAN Referring Unavailable STEELE, GARO Primary Care Unavailable BROWN, JAYLAN Attending Unavailable BROWN, JAYLAN Referring Unavailable STEELE, GARO Primary Care Unavailable METZALTAF Chavez Attending Unavailable STEELE, GARO Primary Care Unavailable STEELE, LEOPOLDO Primary Care Unavailable SELF Referring Unavailable BUD STONE Attending Unavailable STEELE, LEOPOLDO Primary Care Unavailable BUD STONE Referring Unavailable Cedric COLEMAN, Dr. Wyman Primary Care Physician Cedric COLEMAN, Dr. Wyman Referring Provider Steele, Garo Primary Care Unavailable Steele, Garo Referring Unavailable Jimmie Newell Attending Unavailable Clay Jean Attending Unavailable Steele, Garo Primary Care Unavailable Steele, Garo Referring Unavailable Le Harris Attending Unavailable Steele, Garo Primary Care Unavailable Steele, Garo Referring Unavailable Gomez Reynoso Attending Unavailable Steele, Garo Primary Care Unavailable Fazal Mcmanus Attending Unavailable Steele, Garo Primary Care Unavailable Le Harris Referring Unavailable Le Harris Attending Unavailable Steele, Garo Primary Care Unavailable José SENIOR MANAGER MMCOE, Dangelo Referring Unavailable José SENIOR MANAGER MMCOE, Dangelo Attending Unavailable Steele, Garo Primary Care Unavailable Steele, Garo Referring Unavailable Steele, Garo Attending Unavailable Steele, Garo Primary Care Unavailable SisJimmie echavarria Attending Unavailable Steele, Garo Primary Care Unavailable Steele, Garo Referring Unavailable Steele, Garo Referring Unavailable Le Harris Attending Unavailable Steele, Garo Primary Care Unavailable SisJimmie echavarria Attending Unavailable Siska, Jimmie Attending Unavailable Steele, Garo Primary Care Unavailable Jimmie Newell Referring Unavailable Jessy Roman Attending Unavailable Jessy Roman Attending Unavailable Jimmie Newell Consulting Unavailable Sisjericho, Jimmie Referring Unavailable Steele, Garo Primary Care Unavailable Steele, Garo Referring Unavailable Sisjericho, Jimmie Attending Unavailable Gomez Reynoso Attending Unavailable Steele, Garo Primary Care Unavailable Steele, Garo Referring Unavailable José SENIOR MANAGER MMCOE, Dangelo Attending Unavailable Steele, Garo Primary Care Unavailable Steele, Garo Referring Unavailable FriendGomez Attending Unavailable FriendGomez Consulting Unavailable Steele, Garo Primary Care Unavailable Clay Jean Attending Unavailable José SENIOR MANAGER MMCOE, Dangelo Referring Unavailable José SENIOR MANAGER MMCOE, Dangelo Consulting Unavailable Steele, Garo Primary Care Unavailable Steele, Garo Referring Unavailable Le Harris Attending Unavailable Steele, Garo Primary Care Unavailable NABIL KIM Attending Unavailable STEELE, LEOPOLDO Primary Care Unavailable STEELE, LEOPOLDO Referring Unavailable STEELE, LEOPOLDO Attending Unavailable STEELE, LEOPOLDO Primary Care Unavailable STEELE, LEOPOLDO Attending Unavailable STEELE, LEOPOLDO Primary Care Unavailable STEELE, LEOPOLDO Referring Unavailable STEELE, LEOPOLDO Primary Care Unavailable STEELE, LEOPOLDO Referring Unavailable STEELE, LEOPOLDO Primary Care Unavailable Allergies Allergy Classification Reported Allergen(s) Allergy Type Date of Onset Reaction(s) Facility (20 sources) Iodinated Contrast Media; Translations: [IODINATED CONTRAST MEDIA] Allergy to substance 4 Itching [facility] Work Phone: Comment on above: sweating (1 source) ALLERGIES NOT ON FILE; Translations: [ALLERGIES NOT ON FILE] Propensity to adverse reactions (disorder) [facility] Repository (9 sources) rosuvastatin Drug Allergy 5 Myalgia [facility] (1 source) rosuvastatin Drug Allergy 5 [facility] Repository Medications Current Medications Medication Drug Class(es) Dates Sig (Normalized) Sig (Original) 8 hr acetaminophen 650 mg extended release oral tablet (20 sources) Start: 09-21-2023 End: 10-21-2023 take 1 tablet by mouth every eight hours as needed for pain and pain acetaminophen (Tylenol 8 Hour) 650 MG ER tablet TAKE 1 TABLET (650 MG) BY MOUTH EVERY 8 HOURS NEEDED FOR MILD PAIN (1-3) OR MODERATE PAIN (4-6) (TAKE NEEDED FOR PAIN). DO NOT CRUSH, CHEW, OR SPLIT. 90 tablet 0 09/21/2023 10/21/2023 Active Start: 03-24-2023 End: 05-29-2023 take 1 tablet by mouth every eight hours as needed for pain and pain acetaminophen (Tylenol 8 Hour) 650 MG ER tablet Take 1 tablet (650 mg) by mouth every 8 hours as needed for mild pain (1-3) or moderate pain (4-6) (take as needed for pain). Do not crush, chew, or split. 90 tablet 0 04/29/2023 05/29/2023 Active Start: 03-24-2023 End: 03-25-2023 take 1 tablet by mouth every six hours 650 mg, Oral, Every 6 hours, First dose on Thu03/24/23 at 1445, Phase II/On Unit Start: 03-24-2023 End: 03-24-2023 acetaminophen (Tylenol) tabl et 1,000 mg Start: 02-11-2022 End: 02-11-2022 acetaminophen (TYLENOL) tabl et 975 mg amoxicillin 500 mg oral capsule (6 sources) Penicillin-class Antibacterial Start: 02-06-2025 End: 02-06-2025 amoxicillin (Amoxil) 500 MG capsule Take 4 capsules (2,000 mg) by mouth Once for 1 dose. Take all 4 pills 1 hour before dental procedure 4 capsule 02/06/2025 02/06/2025 Active Start: 07-25-2024 End: 07-25-2024 amoxicillin (Amoxil) 500 MG capsule Take 4 capsules (2,000 mg) by mouth Once for 1 dose. Take all 4 pills 1 hour before dental procedure 4 capsule 07/25/2024 07/25/2024 Start: 01-18-2024 End: 01-18-2024 amoxicillin (Amoxil) 500 MG capsule Take 4 capsules (2,000 mg) by mouth Once for 1 dose. Take all 4 pills 1 hour before dental procedure 4 capsule 01/18/2024 01/18/2024 Start: 06-22-2023 End: 06-22-2023 amoxicillin (Amoxil) 500 MG capsule Take 4 capsules (2,000 mg) by mouth Once for 1 dose. Take all 4 pills 1 hour before dental procedure 4 capsule 0 06/22/2023 06/22/2023 Active aspirin 81 mg delayed release oral tablet (2 sources) Platelet Aggregation Inhibitor, Nonsteroidal Anti-inflammatory Drug Start: 03-24-2023 End: 04-09-2023 aspirin (ASPIR) 81 MG EC tablet Take 1 tablet (81 mg) by mouth 2 times daily for 15 days. Take 2 times a day for 15 days. This is for blood clot prevention. Begin this script AFTER you finish your lovenox injections. 30 tablet 0 03/24/2023 04/09/2023 Active baclofen powder, diclofenac sodium powder, gabapentin powder, lidocaine CARE HOME powder in cream base (CPD) (8 sources) Start: 10-13-2024 apply 1-2 g topically every six hours as needed baclofen powder, diclofenac sodium powder, gabapentin powder, lidocaine CARE HOME powder in cream base (CPD) Apply 1-2 g to affected area four times a day as needed. Baclofen2%;diclo fenac10%;gabapen tin10%;lidocaine 6%. Per Altaf Metz MD (orthopedics). 10/13/2024 Active calcium carbonate 500 mg oral tablet (20 sources) take 1 tablet by mouth once daily calcium carbonate (Os-Adi) 1250 (500 Ca) MG tablet Take 1,250 mg by mouth daily. Active calcium carbonate-vitami n D (CALCIUM 500 WITH VITAMIN D) 500-125 mg-unit ORAL Tab (16 sources) Start: 02-04-2007 calcium carbonate-vitami n D (CALCIUM 500 WITH VITAMIN D) 500-125 mg-unit ORAL Tab 0 02/04/2007 Active Start: 02-04-2007 calcium carbon ate-vitamin D (CALCIUM 500 WITH VITAMIN D) 500- 125 mg-unit ORAL Tab Calcium-Magnesium 750-465 mg tablet (11 sources) Start: 12-08-2024 Start: 12-08-2024 Calcium-Magnes ium 750-465 mg tablet Active 1 {tbl} PO DAILY December 08, 2024 12:00am cefadroxil 500 mg oral capsule (1 source) Cephalosporin Antibacterial Start: 03-24-2023 End: 04-01-2023 take 1 capsule by mouth twice daily cefadroxil (Duricef) 500 MG capsule Take 1 capsule (500 mg) by mouth 2 times daily for 7 days. Take this entire prescription. 14 capsule 0 03/24/2023 04/01/2023 Active cephalexin 500 mg oral capsule (15 sources) Cephalosporin Antibacterial Start: 03-14-2025 take 1 capsule by mouth every eight hours Start: 02-21-2022 End: 02-28-2022 take 2 capsules by mouth every twelve hours cephALEXin 500 MG capsule Take 2 capsules by mouth every 12 hours for 7 days. 28 capsule 0 02/21/2022 02/28/2022 Active Start: 02-11-2022 End: 02-18-2022 take 2 capsules by mouth every twelve hours cephALEXin 500 MG capsule Indications: H/O bilateral mastectomy Take 2 capsules by mouth every 12 hours for 7 days. 28 capsule 0 02/11/2022 02/18/2022 Active cephalexin (Kefl ex) 500 MG capsule Take 500 mg by mouth. Active cetirizine hydrochloride 10 mg oral tablet (4 sources) Histamine-1 Receptor Antagonist take 1 tablet by mouth once daily cetirizine (ZYRTEC) 10 mg tablet Take 10 mg by mouth once daily. Active cholecalciferol 0.05 mg oral capsule (20 sources) Vitamin D Start: take 1 capsule by mouth in the morning cholecalciferol (Vitamin D-3) 50 MCG (1999 UT) capsule Take 2,000 Units by mouth in the morning. 11/12/2021 Active Start: 11-12-2021 End: 09-22-2022 take 1 capsule by mouth once daily Cholecalciferol (Vitamin D3) 50 mcg (2,000 unit) capsule Discontinued 50 ug PO DAILY November 12, 2021 12:00am September 22, 2022 12:29pm take 1 capsule by mo uth once daily cholecalciferol 50 MCG (1999 UT) capsule Take 2,000 Units by mouth daily. 0 Active cyclobenzaprine hydrochloride 10 mg oral tablet (6 sources) Muscle Relaxant Start: 02-24-2022 End: 02-27-2022 take 1 tablet by mouth three times daily as needed for muscle spasms cyclobenzaprine 10 MG tablet Take 1 tablet by mouth 3 times daily as needed for Muscle spasms for up to 3 days. 12 tablet 02/24/2022 Active cycloSPORINE 0.5 mg/ml ophthalmic suspension (12 sources) Calcineurin Inhibitor Immunosuppressant Start: 03-04-2021 Restasis 0.05 % Emulsion ophthalmic suspension 03/04/2021 Active docusate sodium 100 mg oral capsule (20 sources) Start: 03-24-2023 End: 04-24-2023 take 1 capsule by mouth twice daily as needed for constipation docusate sodium (Colace) 100 MG capsule Take 1 capsule (100 mg) by mouth 2 times daily as needed for constipation. 60 capsule 0 03/24/2023 04/24/2023 Active Start: 12-23-2013 End: 11-12-2021 take 1 capsule by mouth twice daily as needed for constipation Docusate Sodium (Colace) 100 MG capsule Discontinued 100 mg PO TWICE DAILY NEEDED as needed for Constipation 60 December 23, 2013 9:20am November 12, 2021 10:04am use to keep stools soft esomeprazole 40 mg delayed r elease oral capsule (13 sources) Proton Pump Inhibitor Start: 01-30-2025 Start: 01-23-2025 End: 01-30-2025 Esomeprazole Magnesium 40 mg capsule,delayed release(DR/EC) Discontinued 40 mg PO TWICE A DAY 60 January 23, 2025 12:00am January 30, 2025 12:01pm Take 30minutes before eating breakfast and supper. ezetimibe 10 mg oral tablet (10 sources) Dietary Cholesterol Absorption Inhibitor Start: 12-20-2024 take 1 tablet by mouth once daily Magnesium (20 sources) Start: 11-12-2021 take 200 mg by mouth once daily Magnesium Active 200 MG PO DAILY November 12, 2021 9:54am Start: 11-12-2021 End: 12-08-2024 take 1 tablet by mouth once daily Magnesium 200 mg tablet Discontinued 200 mg PO DAILY November 12, 2021 12:00am December 08, 2024 9:02am Start: 11-12-2021 take 1 tablet by flaco th once daily Magnesium 200 mg tablet Active 200 mg PO DAILY November 12, 2021 12:00am Start: 11-12-2021 take 200 mg by mouth once fausto y Magnesium Active 200 MG PO DAILY November 11, 2021 11:00pm Start: 11-12-2021 take 200 mg by mouth once fausto y Magnesium Active 200 MG PO DAILY November 12, 2021 12:00am MAGNESIUM ORAL T kenia by mouth. Active take 2 tablets by mo uth once daily Magnesium 100 MG tablet Take 2 tablets by mouth daily. Active take 2 tablets by mo uth once daily Magnesium 100 MG tablet Take 2 tablets by mouth daily. 0 Active MAGNESIUM ORAL T kenia by mouth. 0 Active take 2 tablets by mo uth once daily Magnesium 100 MG tablet Take 200 mg by mouth daily. 0 Active Magnesium 100 MG tablet Take by mouth. 0 Active Comment on above: Take by mouth. Magnesium Carb,Citrate,Oxide (Magnesium Complex) 300 mg magnesium tablet (11 sources) Start: 12-08-2024 Start: 12-08-2024 Magnesium Carb ,Citrate,Oxide (Magnesium Complex) 300 mg magnesium tablet Active 100 mg PO DAILY December 08, 2024 12:00am magnesium, chelated 100 mg oral tablet (20 sources) magnesium, martine manuel, 100 MG tablet Take 200 mg by mouth in the morning. Active methylPREDNISolone 4 mg oral tablet (17 sources) Corticosteroid Start: 04-13-2023 End: 05-06-2023 methylPREDNISolone (Medrol Dospak) 4 MG tablets Follow schedule on package instructions 21 tablet 0 04/29/2023 05/06/2023 Active min-chex supplement (20 sources) Start: 11-12-2021 min-chex supplement Active PO November 12, 2021 9:53am Start: 11-12-2021 End: 09-22-2022 min-chex supplement Disconti nued PO 0 November 12, 2021 12:00am September 22, 2022 12:30pm Start: 11-12-2021 End: 09-22-2022 min-chex supplement Disconti nued PO November 11, 2021 11:00pm September 22, 2022 11:30am Start: 11-12-2021 End: 09-22-2022 min-chex supplement Disconti nued PO November 12, 2021 12:00am September 22, 2022 12:30pm Start: 11-12-2021 min-chex suppl ement Active PO November 11, 2021 11:00pm Start: 11-12-2021 min-chex suppl ement Active PO November 12, 2021 12:00am MISC NATURAL PRODUCTS PO (11 sources) take 5 mg by mouth o nce daily MISC NATURAL PRODUCTS PO Take by mouth daily. Niacin 25 mg, B6 5 mg, calcium 20 mg, iodine 300 mcg, and sodium 5 mg Active MISC NATURAL PRO DUCTS PO Take by mouth daily. Niacin 25 mg, B6 5 mg, calcium 20 mg, iodine 300 mcg, and sodium 5 mg 0 Active ofloxacin 3 mg/ml ophthalmic solution (20 sources) Quinolone Antimicrobial Start: 08-11-2022 take 1 drop(s) into the eye(s) four times daily ofloxacin (Ocuflox) 0.3 % ophthalmic solution INSTILL 1 DROP INTO LEFT EYE FOUR TIMES DAILY X 4 DAYS. 08/11/2022 Active ondansetron 4 mg oral tablet (6 sources) Serotonin-3 Receptor Antagonist Start: 03-24-2023 End: 04-23-2023 take 1 tablet by mouth every eight hours as needed ondansetron (Zofran) 4 MG tablet Take 1 tablet (4 mg) by mouth every 8 hours as needed for nausea and/or vomiting. May take 2 tablets if needed. 90 tablet 0 03/24/2023 04/23/2023 Active Start: 02-11-2022 End: 02-11-2022 ondansetron 4mg/2ml (ZOFRAN) injection 4 mg oxyCODONE hydrochloride 5 mg oral tablet (16 sources) Opioid Agonist Start: 03-14-2025 take 1 tablet by mouth twice daily as needed for pain Start: 03-24-2023 End: 03-25-2023 take 1 tablet by mouth every four hours as needed for pain oxyCODONE (Roxicodone) immediate release tablet 5 mg Start: 02-11-2022 End: 04-08-2023 take 1 tablet by mouth every six hours as needed for pain oxyCODONE (Roxicodone) 5 MG immediate release tablet Indications: S/P total knee arthroplasty, left Take 1 tablet (5 mg) by mouth every 6 hours as needed for severe pain (7-10) or moderate pain (4-6) for up to 7 days. Take every 6 hours as needed for pain, continue to wean off as pain becomes more tolerable. Do not start before April 01, 2023. 28 tablet 0 04/01/2023 04/08/2023 Active traMADol hydrochloride 50 mg oral tablet (20 sources) Opioid Agonist Start: 03-24-2023 End: 05-06-2023 traMADol (Ultram) 50 MG tablet Indications: S/P total knee arthroplasty, left Take 1 tablet (50 mg) by mouth every 6 hours as needed for severe pain (7-10) or moderate pain (4-6) for up to 7 days. Take as needed every 6 hours for pain. Wean off as pain becomes more tolerable. 28 tablet 0 04/29/2023 05/06/2023 Active VALERIAN PO (11 sources) VALERIAN PO Take 400 mg by mouth daily. With 5 mg melatonin, ashwaganda 125 mg, and [id number] mg Active VALERIAN PO Take 400 mg by mouth daily. With 5 mg melatonin, ashwaganda 125 mg, and [id number] mg 0 Active Completed/Discontinued Medications Medication Drug Class(es) Dates Sig (Normalized) Sig (Original) acetaminophen 325 mg / HYDROcodone bitartrate 5 mg oral tablet (13 sources) Opioid Agonist Start: 04-12-2024 End: 11-14-2024 Hydrocodone-Acetami nophen 5-325 mg tablet Discontinued 1 {tbl} PO EVERY 6 HOURS NEEDED as needed for Pain 10 3 0 April 12, 2024 November 14, 2024 7:50am Contusion of chest wall Contusion of unspecified front wall of thorax, initial encounter Acetaminophen / oxyCODONE (20 sources) Opioid Agonist Start: 02-11-2022 End: 02-11-2022 oxyCODONE-acetamino phen (PERCOCET) 5-325 MG per tablet 1 tablet Start: 12-23-2013 End: 11-12-2021 Oxycodone-Acetaminophen 1 TA BLET tablet Discontinued 1 - 2 {tbl} PO EVERY 6 HOURS NEEDED as needed for Pain December 23, 2013 12:00am November 12, 2021 10:04am Start: 12-23-2013 End: 11-12-2021 take 1 tablet by mouth every six hours as needed Oxycodone-Acetaminophen Discontinued 1 - 2 TABLET PO EVERY 6 HOURS NEEDED December 22, 2013 11:00pm November 12, 2021 9:04am ALPRAZolam 0.25 mg disintegrating oral tablet (1 source) Benzodiazepine Start: 03-24-2023 End: 03-24-2023 ALPRAZolam (Xanax) disintegrating tablet 0.25 mg ascorbic acid 500 mg oral tablet (2 sources) Vitamin C End: 01-27-2022 take 1 tablet by mouth once daily ascorbic acid 500 MG tablet Take 500 mg by mouth daily. 0 01/27/2022 Discontinued (Therapy completed) atorvastatin 10 mg oral tablet (4 sources) HMG-CoA Reductase Inhibitor Start: 12-25-2020 End: 06-27-2022 take 1 tablet by mouth once daily atorvastatin (LIPITOR) 10 mg tablet TAKE 1 TABLET BY MOUTH EVERY DAY 30 tablet 0 12/25/2020 06/27/2022 Discontinued Comment on above: TAKE 1 TABLET BY FLACO TH EVERY DAY bisacodyl 5 mg delayed release oral tablet (1 source) Stimulant Laxative Start: 03-24-2023 End: 03-25-2023 take 1 tablet by mouth every twenty-four hours as needed for constipation 5 mg, Oral, Daily PRN, constipation, Starting on Thu03/24/23 at 1433, Phase II/On Unit, 1st line for treatment of constipation - give scheduled if no bowel movement in past 24 hours. Do not crush, chew, or split. calcium carbonate 1250 mg / cholecalciferol 125 unt oral tablet (18 sources) Vitamin D Start: 09-22-2022 End: 01-23-2025 Calcium Carbonate-Vitamin D3 500 mg-3.125 mcg (125 unit) tablet Discontinued 1 {tbl} PO DAILY September 22, 2022 12:00am January 23, 2025 8:06am Start: 09-22-2022 take 1 tablet by flaco th once daily Calcium Carbonate-Vitamin D3 Active 1 TABLET PO DAILY September 21, 2022 11:00pm calcium chloride 0.0014 meq/ ml / potassium chloride 0.004 meq/ml / sodium chloride 0.103 meq/ml / sodium lactate 0.028 meq/ml injectable solution (3 sources) Start: 03-24-2023 End: 03-25-2023 lactated Ringer's infusion Start: 02-11-2022 End: 02-11-2022 lactated ringers IV solution ceFAZolin (Ancef) 2,000 mg in sodium chloride 0.9 % 100 mL IVPB (1 source) Start: 03-24-2023 End: 03-25-2023 take 2000 mg intravenously every eight hours 2,000 mg, IntraVENous, at 200 mL/hr, Administer over 30 Minutes, Every 8 hours, First dose on Thu03/24/23 at 1700, For 2 doses, Phase II/On Unit, Mini-Bag Plus bag, Suspected Indication (Select all that apply): Surgical Prophylaxis celecoxib 200 mg oral capsule (20 sources) Nonsteroidal Anti-inflammatory Drug Start: 04-20-2022 End: 10-13-2024 take 1 capsule by mouth once daily as needed Celecoxib (Celebrex) 200 mg capsule Discontinued 200 mg PO DAILY as needed September 22, 2022 12:00am October 28, 2023 9:57am Start: 11-12-2021 End: 12-03-2021 take 1 capsule by mouth once daily as needed Celecoxib 200 mg capsule Discontinued 200 mg PO DAILY as needed November 12, 2021 12:00am December 03, 2021 8:57am Start: 04-05-2021 celecoxib 100 MG capsule as needed. 04/05/2021 Active Comment on above: Take 1 capsule by mo ut once daily as needed (back pain). Take 1 capsule by mo ut once daily as needed for pain (back pain). dexamethasone 4 mg oral tablet (1 source) Corticosteroid Start: 03-24-20 End: 03-24-20 take 1 dose by mouth four times daily 8 mg, Oral, Every 6 hours scheduled (4 times per day), First dose on Thu03/24/23 at 1500, For 2 doses, Phase II/On Unit dilTIAZem hydrochloride 30 mg oral tablet (13 sources) Calcium Channel Azeem Start: 01-04-20 End: 02-29-20 take 1 tablet by mouth once daily at bedtime Diltiazem Hcl (Cardizem) 30 mg tablet Discontinued 30 mg PO TWICE A DAY 60 0 January 03, 2025 12:00am February 28, 2025 8:55am For first week, take only at bedtime. End: 06-27-2022 take 1 tablet by mouth four times daily diltiazem (CARDIZEM) 30 mg tablet Take 30 mg by mouth four times daily. 0 06/27/2022 Discontinued Comment on above: Take 30 mg by mouth four times daily. 1 ml diphenhydrAMINE hydrochloride 50 mg/ml cartridge (1 source) Histamine-1 Receptor Antagonist Start: 02-12-20 End: 02-12-20 diphenhydrAMINE (BENADRYL) injection 12.5 mg diphenhydrAMINE (BENADryl) tablet/capsule 25 mg (1 source) Start: 03-24-20 End: 03-25-20 take 1 tablet by mouth every six hours as needed diphenhydrAMINE (BENADryl) tablet/capsule 25 mg donepezil hydrochloride 5 mg oral tablet (2 sources) Start: 03-18-20 End: 01-28-20 donepezil 5 MG tablet 0.4 ml enoxaparin sodium 100 mg/ml prefilled syringe (3 sources) Low Molecular Weight Heparin Start: 03-25-20 End: 03-25-20 40 mg, SubCUTAneous, Daily, First dose on Thu03/25/23 at 0600, Phase II/On Unit, Begin morning of POD 1, Indication of Use: Prophylaxis-DVT/PE, Indications: Prophylaxis of Venous Thromboembolism Start: 03-24-2023 End: 04-09-2023 inject 0.4 mL by subcutaneous injection once daily enoxaparin (Lovenox) 40 MG/0.4ML solution prefilled syringe Inject 0.4 mL (40 mg) under the skin daily for 15 days. Inject into skin once a day for 15 days. After this script begin your Aspirin script for another 15 days. 15 each 0 03/24/2023 04/09/2023 Active estrogens, conjugated (detention) 0.625 mg/ml vaginal cream (2 sources) Estrogen Start: 02-22-2016 End: 06-27-2022 conjugated estrogens (PREMARIN) vaginal cream use a small amount to lower vagina qhs twice weekly 1 Tube 1 02/22/2016 06/27/2022 Discontinued Comment on above: use a small amount t o lower vagina qhs twice weekly famotidine 20 mg oral tablet (20 sources) Histamine-2 Receptor Antagonist Start: 11-14-2024 End: 01-23-2025 take 1 tablet by mouth at bedtime Famotidine 20 mg tablet Discontinued 20 mg PO AT BEDTIME 30 1 January 03, 2025 1:56pm January 23, 2025 9:03am Start: 03-24-2023 End: 03-25-2023 take 20 mg by mouth twice daily 20 mg, Oral, 2 times d gilberty, First dose on Thu03/24/23 at 2100, Phase II/On Unit Start: 11-21-2022 End: 10-28-2023 take 1 tablet by mouth once daily Famotidine 20 mg tablet Discontinued 20 mg PO DAILY November 21, 2022 12:00am October 28, 2023 9:57am Start: 12-03-2021 End: 09-22-2022 Famotidine 40 mg tablet Disc ontinued 20 mg PO DAILY December 03, 2021 8:55am September 22, 2022 12:30pm Start: 12-03-2021 End: 09-22-2022 take 20 mg by mouth once daily Famotidine Discontinued 20 MG PO DAILY December 03, 2021 7:55am September 22, 2022 11:30am Start: 04-06-2021 End: 12-29-2022 take 1 tablet by mouth once daily Famotidine 40 mg tablet Discontinued 40 mg PO DAILY September 22, 2022 12:27pm October 22, 2022 11:45am Comment on above: Take 1 tablet by flaco th daily at bedtime. gabapentin 300 mg oral capsule (20 sources) Anti-epileptic Agent Start: 10-26-2022 End: 02-28-2025 take 1 capsule by mouth at bedtime Gabapentin 300 mg capsule Discontinued 300 mg PO AT BEDTIME November 21, 2022 12:00am February 28, 2025 8:56am Start: 06-27-2022 End: 12-29-2022 take 3 capsules by mouth twice daily gabapentin (NEURONTIN) 100 mg capsule Take 3 capsules by mouth twice daily. 0 06/27/2022 12/29/2022 Discontinued (Erroneous entry) Start: 02-17-2021 End: 11-21-2022 take 1 capsule by mouth twice daily Gabapentin 300 mg capsule Discontinued 300 mg PO TWICE A DAY 180 3 February 19, 2022 11:34am November 21, 2022 9:41am Start: 12-09-2019 End: 06-27-2022 take 1 capsule by mouth once daily at bedtime gabapentin (NEURONTIN) 300 mg capsule Indications: Neuropathic pain of right lower extremity Take 1 capsule by mouth daily at bedtime for 90 days. 90 capsule 0 12/09/2019 06/27/2022 Discontinued Comment on above: Take 1 capsule by mo [facility] daily at bedtime for 90 days. Take 3 capsules by m [facility] twice daily. Take 1 capsule by mo [facility] three times daily for 180 days. 1 ml haloperidol 5 mg/ml injection (1 source) Typical Antipsychotic Start: 2021 End: 2021 haloperidol lactate (HALDOL) injection 1 mg 1 ml HYDROmorphone hydrochloride 1 mg/ml cartridge (1 source) Opioid Agonist Start: 2022 End: 2022 HYDROmorphone (Dilaudid) injection 0.5 mg HYDROmorphone (DILAUDID) injection 0.2 mg (1 source) Start: 2021 End: 2021 HYDROmorphone (DILAUDID) injection 0.2 mg HYDROmorphone (Dilaudid) injection 0.25 mg (1 source) Start: 2022 End: 2022 HYDROmorphone (Dilaudid) injection 0.25 mg ibuprofen 600 mg oral tablet (20 sources) Nonsteroidal Anti-inflammatory Drug Start: 2013 End: 2021 take 1 tablet by mouth every six hours as needed for pain Ibuprofen 600 MG tablet Discontinued 600 mg PO EVERY 6 HOURS as needed for Pain 60 December 23, 2013 12:00am November 12, 2021 10:04am isopropyl alcohol 0.7 ml/ml medicated pad (1 source) Start: 2022 End: 2022 Nozin Nasal Mattress Inspector Popswab 2 Swab 1 ml ketorolac tromethamine 15 mg/ml cartridge (1 source) Nonsteroidal Anti-inflammatory Drug, Cyclooxygenase Inhibitor Start: 2022 End: 2022 take 15 mg intravenously every six hours 15 mg, IntraVENous, Every 6 hours, First dose on Thu03/24/23 at 1445, For 2 doses, Phase II/On Unit, Give in addition to any other pain medication ordered at same time for any pain indication. lactase 3000 unt oral tablet (20 sources) Start: 2021 End: 2021 take 1 tablet by mouth once at mealtime Lactase 3,000 unit tablet Discontinued 3000 U PO ONCE November 12, 2021 12:00am December 03, 2021 8:57am administer with meals and/or snacks lactase (LACTAID FAST ACT ORAL) Take by mouth. Active lactase (LACTAID FAST ACT ORAL) Take by mouth. 0 Active Comment on above: Take by mouth. lansoprazole 15 mg delayed release oral capsule (20 sources) Proton Pump Inhibitor Start: End: take 1 capsule by mouth once daily as needed for gastroesophageal reflux disease Lansoprazole (Prevacid) 15 MG capsule Discontinued 15 mg PO DAILY as needed for REFLUX December 15, 2013 12:00am November 12, 2021 10:04am levothyroxine sodium 0.025 mg oral capsule (20 sources) l-Thyroxine Start: End: take 1 capsule by mouth once daily Levothyroxine 25 mcg capsule Discontinued 25 ug PO DAILY November 12, 2021 12:00am December 03, 2021 8:57am End: 01-27-2022 take 1 dose by mouth at bedtime Levothyroxine Sodium (LEVOTHYROXINE PO) Take by mouth at bedtime. Pt unsure of dose 0 01/27/2022 Discontinued take 1 dose by mouth at bedtime Levothyroxine Sodium (LEVOTHYROXINE PO) Take by mouth at bedtime. Pt unsure of dose 0 Active 10 ml lidocaine hydrochloride 10 mg/ml injection (1 source) Antiarrhythmic, Amide Local Anesthetic Start: 02-11-2022 End: 02-11-2022 lidocaine 1% (PF) (XYLOCAINE MPF) 1 % injection 0.1-0.3 mL melatonin 5 mg oral tablet (20 sources) Start: 03-24-2023 End: 03-25-2023 melatonin tablet 10 mg Start: 10-22-2022 End: 11-14-2024 take 1 tablet by mouth at bedtime as needed Melatonin 5 mg tablet Discontinued 5 mg PO BEDTIME as needed October 22, 2022 12:00am November 14, 2024 7:50am End: 01-27-2022 take 5 mg by mouth at bedtime melatonin 3 MG tablet Ta ke 5 mg by mouth at bedtime. 0 01/27/2022 Discontinued (Therapy completed) 5 ml metoprolol tartrate 1 mg/ml injection (1 source) beta-Adrenergic Azeem Start: 02-11-2022 End: 02-11-2022 metoprolol (LOPRESSOR) injection 5 mg omeprazole 20 mg delayed release oral capsule (20 sources) Proton Pump Inhibitor Start: 11-14-2024 End: 01-03-2025 Omeprazole 20 mg capsule,delayed release(DR/EC) Discontinued 20 mg PO TWICE A DAY 60 2 November 14, 2024 12:00am January 03, 2025 1:54pm Take 30minutes before eating breakfast and dinner. End: 07-22-2023 take 1 capsule by mouth once daily before breakfast omeprazole (PriLOSEC) [address] capsule Take 40 mg by mouth every morning (before breakfast). Do not crush or chew. 0 07/22/2023 Discontinued (Therapy completed) ondansetron ODT (Zofran-ODT) disintegrating tablet 4 mg (1 source) Start: 03-24-2023 End: 03-25-2023 take 1 tablet by mouth every eight hours as needed for nausea and vomiting ondansetron ODT (Zofran-ODT) disintegrating tablet 4 mg pantoprazole 40 mg delayed release oral tablet (4 sources) Proton Pump Inhibitor End: 06-27-2022 take 1 tablet by mouth once daily pantoprazole DR (PROTONIX) 40 mg tablet Take 40 mg by mouth once daily. 0 06/27/2022 Discontinued Comment on above: Take 40 mg by mouth once daily. pravastatin sodium 40 mg oral tablet (20 sources) HMG-CoA Reductase Inhibitor Start: 12-15-2013 End: 11-12-2021 take 1 tablet by mouth at bedtime Pravastatin 40 MG tablet Discontinued 40 mg PO AT BEDTIME December 15, 2013 12:00am November 12, 2021 10:04am 1 ml promethazine hydrochloride 25 mg/ml injection (1 source) Phenothiazine Start: 02-11-2022 End: 02-11-2022 take 6.25 mg intravenously every hour as needed promethazine (PHENERGAN) injection 6.25 mg RABEprazole sodium 20 mg delayed release oral tablet (9 sources) Proton Pump Inhibitor Start: 01-03-2025 End: 01-23-2025 take 1 tablet by mouth twice daily Rabeprazole 20 mg tablet,delayed release (DR/EC) Discontinued 20 mg PO TWICE A DAY 60 0 January 03, 2025 12:00am January 23, 2025 9:50am 200 ml ropivacaine hydrochloride 2 mg/ml injection (1 source) Amide Local Anesthetic Start: 03-24-2023 End: 03-25-2023 ropivacaine (Naropin) 0.2 % elastomeric infusion 500 mL ropivacaine (Naropin) 5 MG/ML 15 mL, EPINEPHrine (Adrenalin) 30 MG/30ML 0.125 mL, ketorolac (Toradol) 30 MG/ML 0.5 mL in sodium chloride (PF) 0.9 % 15 mL syringe (2 sources) Start: 03-24-2023 End: 03-24-2023 ropivacaine (Naropin) 5 MG/ML 15 mL, EPINEPHrine (Adrenalin) 30 MG/30ML 0.125 mL, ketorolac (Toradol) 30 MG/ML 0.5 mL in sodium chloride (PF) 0.9 % 15 mL syringe Start: 03-24-2023 End: 03-24-2023 ropivacaine (Naropin) 5 MG/M L 15 mL, EPINEPHrine (Adrenalin) 30 MG/30ML 0.125 mL, ketorolac (Toradol) 30 MG/ML 0.5 mL in sodium chloride (PF) 0.9 % 15 mL syringe rosuvastatin calcium 5 mg oral tablet (11 sources) HMG-CoA Reductase Inhibitor Start: 11-21-2024 End: 12-20-2024 take 1 tablet by mouth once daily Rosuvastatin 5 mg tablet Discontinued 5 mg PO daily 30 November 21, 2024 12:00am December 20, 2024 12:30pm 72 hr scopolamine 0.0139 mg/hr transdermal system (1 source) Anticholinergic Start: 02-11-2022 End: 02-11-2022 scopolamine (TRANSDERM-SCOP) patch 1 patch 5 ml sodium chloride 9 mg/ml injection (4 sources) Start: 03-24-2023 End: 03-25-2023 10 mL, IntraVENous, Every 12 hours scheduled (2 times per day), First dose on Thu03/24/23 at 2100, Phase II/On Unit Start: 03-24-2023 End: 03-25-2023 take 125 mL intravenously every hour 125 mL/hr, IntraVENous, Continuous, Starting on Thu03/24/23 at 1445, Phase II/On Unit Start: 03-24-2023 End: 03-25-2023 take 100 mL intravenously every hour as needed, then take 20 mL intravenously every hour as needed 5-250 mL/hr, IntraVENous, PRN, if patient receiving piggyback infusions and maintenance fluids are not ordered OR KVO fluids to protect IV site / prevent frequent line interruptions/ long duration, Starting on Thu03/24/23 at 1433, Phase II/On Unit, For piggyback infusion, administer at same rate as piggyback for a total of 25 mL. Enter 25 mL into dose field and piggyback rate into rate field of order. If piggyback is infusing at a rate less than 100 mL/hr, enter 25 mL into dose field and 100 mL/hr into rate field of order. For KVO fluids, enter rate of 20 mL/hr or less into rate field of order. Start: 03-24-2023 End: 03-25-2023 take 10 mL intravenously once as needed 10 mL, IntraVENous, PRN, line care, Starting on Thu03/24/23 at 1433, Phase II/On Unit, After every IV line use sucralfate 1000 mg oral tablet (4 sources) Aluminum Complex End: 06-27-2022 sucralfate (CARAFATE) 1 gram tablet as needed. 0 06/27/2022 Discontinued Comment on above: as needed. ubidecarenone 10 mg oral capsule (20 sources) Start: 09-22-2022 End: 12-29-2022 Coenzyme Q10 10 mg capsule Discontinued 10 mg PO TWICE A DAY September 22, 2022 12:00am October 22, 2022 11:45am ubidecarenone Q- 10 (COENZYME Q-10) 10 mg cap 10 mg once daily. Takes when she remembers to take it Active Comment on above: Take by mouth twice daily. Problems Active Problems Problem Classification Problem Date Documented Da te Episodic/Chronic Abdominal hernia (1 source) Diaphragmatic hernia without obstruction or gangrene; Translations: [Hiatal hernia] Onset: Episodic Administrative/social admission (3 sources) Persons encountering health services in other specified circumstances; Translations: [Other reasons for seeking consultation] Episodic Cancer of breast (20 sources) Malignant tumor of breast ; Translations: [Malignant neoplasm of unspecified site of unspecified female breast] Onset: 5 11-12-2021 Chronic Disorders of lipid metabolism (20 sources) Hyperlipidemia; Translations: [Hyperlipidemia, unspecified] Onset: 4 Chronic E Codes: Fall (14 sources) Fall; Translations: [Unspecified fall, subsequent encounter] 04-15-2024 Episodic Esophageal disorders (20 sources) Gastroesophageal reflux disease; Translations: [Gastro-esophageal reflux disease without esophagitis] Onset: 6 05-13-2021 Chronic Headache; including migraine (1 source) Headache; Translations: [Headache, unspecified headache type] 04-12-2024 Episodic Osteoarthritis (20 sources) Arthritis; Translations: [Unspecified osteoarthritis, unspecified site] Onset: 3 Chronic Other and unspecified benign neoplasm (1 source) Neuroma; Translations: [Benign neoplasm of peripheral nerves and autonomic nervous system, unspecified] 02-08-2024 Episodic Other bone disease and musculoskeletal deformities (20 sources) Osteopenia; Translations: [Other specified disorders of bone density and structure, unspecified site] Onset: 6 Episodic Other connective tissue disease (20 sources) History of total knee arthroplasty; Translations: [Presence of left artificial knee joint] 03-24-2023 Chronic Other connective tissue disease (2 sources) Presence of right artificial knee joint; Translations: [Presence of right artificial knee joint] Onset: 4 Chronic Other connective tissue disease (18 sources) Peripheral neuropathic pain; Translations: [Neuralgia and neuritis, unspecified] Episodic Other connective tissue disease (20 sources) Digital mucous cyst of left hand; Translations: [Ganglion, left hand] 01-31-2025 Episodic Other connective tissue disease (2 sources) Ganglion, left hand; Translations: [Ganglion, left hand] Onset: 5 Episodic Other gastrointestinal disorders (20 sources) Dysphagia; Translations: [Dysphagia, unspecified] Onset: 1 Resolved: 3 05-13-2021 Episodic Other gastrointestinal disorders (1 source) Other dysphagia; Translations: [Esophageal dysphagia] Onset: 5 Episodic Other injuries and conditions due to external causes (14 sources) Closed injury of head; Translations: [Unspecified injury of head, subsequent encounter] 04-15-2024 Episodic Other nervous system disorders (1 source) Other chronic pain; Translations: [Chronic pain of both shoulders] Onset: 5 Chronic Other nervous system disorders (1 source) Carpal tunnel syndrome, right upper limb; Translations: [Carpal tunnel syndrome on right] Onset: 5 Chronic Other nervous system disorders (1 source) Acute postoperative pain; Translations: [Other acute postprocedural pain] Episodic Other non-traumatic joint disorders (2 sources) Pain in right knee; Translations: [Pain in joint, lower leg] Episodic Other non-traumatic joint disorders (8 sources) Hip pain; Translations: [Pain in left hip] 03-30-2024 Episodic Other non-traumatic joint disorders (2 sources) Bilateral chronic pain of upper limbs; Translations: [Pain in right shoulder] 10-13-2024 Episodic Other skin disorders (20 sources) Mass of neck; Translations: [Localized swelling, mass and lump, neck] 12-03-2021 Episodic Other skin disorders (1 source) Follicular cyst of the skin and subcutaneous tissue, unspecified; Translations: [Follicular cyst of the skin and subcutaneous tissue, unspecified] Onset: 5 Episodic Other upper respiratory disease (20 sources) Seasonal allergy; Translations: [Other seasonal allergic rhinitis] 10-25-2021 Chronic Other upper respiratory disease (20 sources) Feeling of lump in throat; Translations: [Globus sensation] 11-14-2024 Episodic Residual codes; unclassified (20 sources) Sleep apnea; Translations: [Sleep apnea, unspecified] Onset: 3 06-27-2022 Chronic Residual codes; unclassified (20 sources) Obstructive sleep apnea syndrome; Translations: [Obstructive sleep apnea (adult) (pediatric)] Onset: 3 03-10-2023 Chronic Residual codes; unclassified (20 sources) Clearing throat - hawking; Translations: [Other general symptoms and signs] 12-03-2021 Episodic Residual codes; unclassified (2 sources) FH: Cardiovascular disease; Translations: [Family history of ischemic heart disease and other diseases of the circulatory system] Onset: 4 11-05-2023 Episodic Residual codes; unclassified (1 source) Family history of ischemic heart disease and other diseases of the circulatory system; Translations: [Family history of ischemic heart disease and other diseases of the circulatory system] Onset: 4 Episodic Residual codes; unclassified (1 source) Pain; Translations: [Pain, unspecified] 04-12-2024 Episodic Screening and history of mental health and substance abuse codes (2 sources) Encounter for screening examination for other mental health and behavioral disorders; Translations: [Encounter for screening for depression] Onset: 5 Episodic Skin and subcutaneous tissue infections (1 source) Cellulitis of left finger; Translations: [Paronychia of left index finger] Onset: 5 Episodic Superficial injury; contusion (20 sources) Contusion of left chest wall; Translations: [Contusion of left front wall of thorax, subsequent encounter] 04-15-2024 Episodic Thyroid disorders (20 sources) Hypothyroidism; Translations: [Hypothyroidism, unspecified] Onset: 3 Chronic Comment on above: 71-year-old female, euthyroid from an endocrine standpoint (after recheck of labs), who presents with multiple thyroid nodules. Most of these nodules are subcentimeter and have a TI-RADS rating of 2. She has a single nodule greater than 1 cm in the isthmus. This also has a TI-RADS rating of 2. She describes only chronic symptoms that could all be related to compression, however, given the overall small size of the gland and the nodules I find this unlikely. Therefore I recommend active surveillance of the issue rather than pursuing biopsy. This was described to the patient with a diagram of her ultrasound as well as an explanation of the TI-RADS grading system. Patient expressed appreciation and willingness to proceed with this plan. Follow-up hypothyroi dism with repeat labs today. Unclassified (2 sources) Bilateral chronic pain of upper limbs 10-13-2024 Unclassified (2 sources) Foreign body sensation, throat; Translations: [Foreign body sensation, throat] Onset: 5 Past or Other Problems Problem Classification Problem Date Documented Da te Episodic/Chronic Abdominal pain (20 sources) Left lower quadrant pain; Translations: [Left lower quadrant pain] Onset: 05-13-2021 Resolved: 06-27-2022 05-13-2021 Episodic Acquired foot deformities (20 sources) Acquired hallux rigidus; Translations: [Hallux rigidus, unspecified foot] Onset: 05-09-2013 Resolved: 06-27-2022 05-13-2021 Chronic Cancer of breast (20 sources) History of malignant neoplasm of breast; Translations: [Personal history of malignant neoplasm of breast] Onset: 06-27-2022 Episodic Complications of surgical procedures or medical care (20 sources) Delayed recovery from general anesthesia; Translations: [Other complications of anesthesia, initial encounter] Onset: 03-10-2023 03-10-2023 Episodic Diverticulosis and diverticulitis (20 sources) Diverticulosis of colon; Translations: [Diverticulosis of large intestine without perforation or abscess without bleeding] Onset: 05-13-2021 Resolved: 06-27-2022 05-13-2021 Chronic Gastritis and duodenitis (20 sources) Acute gastritis; Translations: [Acute gastritis without bleeding] Onset: 08-05-2005 Resolved: 06-27-2022 05-13-2021 Episodic Hemorrhoids (20 sources) Internal hemorrhoids; Translations: [Other hemorrhoids] Onset: 05-13-2021 Resolved: 06-27-2022 05-13-2021 Episodic Lymphadenitis (20 sources) Cervical lymphadenopathy; Translations: [Localized enlarged lymph nodes] Onset: 12-28-2024 Episodic Comment on above: Patient presenting f or evaluation of thyroid nodules, but complains of left cervical adenopathy that is tender to the touch. Indeed, I find a separate hypoechoic mass of the left neck adjacent to the left jugular vein that seems to represent an enlarged level 2 lymph node. I would like a formal ultrasound of this node to evaluate for the presence of fatty hilum. This has been ordered and we will plan to follow-up with patient once it is complete. Mood disorders (12 sources) Mood disorders Onset: 10-04-2021 Resolved: 02-08-2024 10-04-2021 Nonspecific chest pain (20 sources) Chest pain; Translations: [Chest pain, unspecified] Onset: 06-22-2024 04-15-2024 Episodic Other aftercare (16 sources) Patient encounter status; Translations: [Encounter for follow-up examination after completed treatment for conditions other than malignant neoplasm] Onset: 11-18-2018 Resolved: 11-18-2018 Episodic Other bone disease and musculoskeletal deformities (1 source) Other specified disorders of bone density and structure, multiple sites; Translations: [Osteopenia of multiple sites] Onset: 06-27-2022 Episodic Other circulatory disease (1 source) Other specified symptoms and signs involving the circulatory and respiratory systems; Translations: [Other specified symptoms and signs involving the circulatory and respiratory systems] Onset: 01-04-2025 Episodic Other congenital anomalies (20 sources) Porokeratosis; Translations: [Other specified congenital malformations of skin] Onset: 03-26-2011 Resolved: 06-27-2022 05-13-2021 Chronic Other connective tissue disease (20 sources) Triggering of digit; Translations: [Trigger finger, unspecified finger] Onset: 04-27-2013 Resolved: 06-27-2022 05-13-2021 Episodic Other connective tissue disease (1 source) Neuralgia and neuritis, unspecified; Translations: [Neuropathic pain, leg, right] Onset: 06-27-2022 Episodic Other gastrointestinal disorders (2 sources) Dysphagia, unspecified; Translations: [Dysphagia, unspecified] Onset: 12-28-2024 Episodic Other injuries and conditions due to external causes (1 source) Unspecified injury of head, initial encounter; Translations: [Unspecified injury of head, initial encounter] Onset: 05-04-2024 Episodic Other nervous system disorders (20 sources) Carpal tunnel syndrome of right wrist; Translations: [Carpal tunnel syndrome, right upper limb] Onset: 07-23-2017 Resolved: 06-27-2022 05-13-2021 Chronic Other non-traumatic joint disorders (2 sources) Pain in left hip; Translations: [Pain in left hip] Onset: 03-30-2024 Episodic Other non-traumatic joint disorders (1 source) Pain in right shoulder; Translations: [Chronic pain of both shoulders] Onset: 10-13-2024 Episodic Other non-traumatic joint disorders (1 source) Pain in left shoulder; Translations: [Chronic pain of both shoulders] Onset: 10-13-2024 Episodic Residual codes; unclassified (16 sources) Mild memory disturbance ; Translations: [Other amnesia] Onset: 06-27-2022 Episodic Residual codes; unclassified (1 source) Acquired absence of bilateral breasts and nipples; Translations: [H/O bilateral mastectomy] Onset: 11-18-2018 Episodic Spondylosis; intervertebral disc disorders; other back problems (20 sources) Cervical radiculopathy; Translations: [Radiculopathy, cervical region] Onset: 08-24-2015 Resolved: 06-27-2022 05-13-2021 Episodic Results Test Name Value Interpretation Reference Range Facility [facility] 04-19-2025 CNPN Telephone (INTMWS) TARIK DUNHAM ([id number]) 1950 F Date Time Provider Department 04/19/25 GARO STEELE INTMWS During your visit today, we recorded the following information about you: Ivette Vizcaino RN 04/19/2025 2:41 PM Signed Faxed bone density order to [facility] per pt request. Reports F couldn't get her in until Jul. [facility] can get her in next week. Allergies As of Date: 04/19/2025 Noted Allergy Reaction IODINATED CONTRAST MEDIA 12/15/2013 9 - Itching Date Reviewed: 04/18/2025 Reviewed by: Yesy Hawk LPN - Fully Assessed Reason for Visit: Faxed to [facility] [Other] Prescriptions as of 04/19/2025 - esomeprazole (NEXIUM) 40 mg capsule Take 1 capsule by mouth once daily. - famotidine (PEPCID) 20 mg tablet Take 1 tablet by mouth daily at bedtime. - cephALEXin (KEFLEX) 500 mg capsule Take 1 capsule by mouth three times a day for 7 days. - baclofen powder, diclofenac sodium powder, gabapentin powder, lidocaine CARE HOME powder in cream base (CPD) Apply 1-2 g to affected area four times a day as needed. Baclofen2%;[id number]%;carissa obrzho29%;lidocaine6%. Per Altaf Metz MD (orthopedics). - ezetimibe (ZETIA) 10 mg tablet Take 1 tablet by mouth once daily. - celecoxib (CELEBREX) 200 mg capsule Take 1 capsule by mouth once daily as needed for pain (back pain). - lactase (LACTAID FAST ACT ORAL) Take by mouth. - MAGNESIUM ORAL Take by mouth. - calcium carbonate-vitamin D (CALCIUM 500 WITH VITAMIN D) 500-125 mg-unit ORAL Tab Problem List As Of Date 04/19/2025 Noted Resolved Dysphagia [R13.10] ESOPHAGEAL REFLUX [K21.9] Abdominal pain, left lower [...] 01/27/2006 Other low back pain [M54.59] 09/20/2021 BRUNO on CPAP [G47.33] 06/27/2022 Mild memory disturbance [R41.3] 06/27/2022 04/18/2025 History of breast cancer [Z85.3] 06/27/2022 Primary osteoarthritis of right knee [M17.11] 12/29/2022 Multiple thyroid nodules [E04.2] 11/25/2021 04/18/2025 Hyperlipidemia [E78.5] 07/01/2023 Unilateral primary osteoarthritis, left hip [M1*03/30/2024 Hiatal hernia [K44.9] 12/09/2024 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 Medicare Health Risk Assessment General Health Very good Exercise: Minutes/Day 30 min Exercise: Days/Week 3 days Alcohol: Daily Use 2-4 times a month Alcohol: Drinks/Day 1 or 2 Alcohol: 6 or more drinks Never Feel off balance Yes Concerns: Teeth/Dentures No Concerns: Sexual function No Troubled by feelings None of the above Frequency: Eating healthy diet Several days ADLs requiring help None of the above Safety precautions in home/vehicle Yes Smoke, vape, chews tobacco No Difficulty hearing No Difficulty seeing No Current Providers Specialists: I have reviewed specialist-related care of the patient in the medical record. Current care team: Patient Care Team: Garo Steele MD as PCP - General (Internal Medicine) Rosa Washburn APRN.CYBER ENGINEER as Construction Tech (Internal Medicine) Bud Stone MD (Surgery, Endoscopy) Nabil Kim APRN, CNP (Oncology) Outside specialists seen: Altaf Metz MD (Orthopedics) Clay Jean MD (Cardiology) Isidro Wong OD (Optometry) Abner Hermosillo MD (Plastic Reconstructive Surgery) [facility] Dermatology. Jimmie Newell MD (Plastic Surgeon) Cindy Reynoso MD (Gastroenterology) DME CPAP supplies: [employer]. Medical/Family history review Reviewed and updated problem list, medical/surgical/family/socia l history, medications, and allergies. Opioid use review Prescribed: No opioid use on file in the last 90 days Patient-reported: No opioid use on file in the last 90 days Depression screening Anxiety screening MEHDI-2 Score: 0 Cognitive screening Mini Cog Score: 5 Cognitive screening reviewed and No further action needed (score 3-5). Functional Observation Was the patient's Timed Up AND Go test unsteady or >= 12 seconds? No Advance Directives Surrogate decision maker and/or advance care plan documented Measurements BP 102/68 (BP Site: Left Arm, BP Position: Sitting, BP Cuff Size: Large Adult) Pulse 72 Ht 167.6 cm (5' 6") Wt 67.4 kg (148 lb 9.4 oz) BMI 23.98 kg/m? Vision Screening: Follows with optometry/ophthalmology Right: 20/25 Left: 20/ -- Both: 20/40 Assessment/Plan Medicare annual wellness visit, subsequent (Z00.00) - Counseled on healthy diet and regular exercise - Fall avoidance information provided - Personalized prevention plan provided - Vaccine recommendations reviewed. She will get these from her pharmacy. MD Cedric Diehl Victor H, MD 04/18/2025 11:21 AM Signed Screening schedule The following prevention plan is recommended: DTaP,Tdap,Td Vaccine(1 - Tdap) Never done Shingrix Vaccine(2 of 2) due on 05/19/2020 RSV Vaccine(1 - 1-dose 75+ series) Never done Advance Directive Discussion due on 06/15/2024 Medicare Advantage Annual Wellness Visit due on 06/15/2024 Bone Density Screening due on 07/01/2024 Depression Screening due on 04/15/2025 Anxiety Screening due on 04/15/2025 WHAT YOU CAN DO TO PREVENT FALLS [...] review all the medicines you take, even eiwo-czr-[id number] medicines. As you get older, the way [...] items you use often in cabinets you ca (more content not included)... Normal [facility] Plastic Surgery Visit Report on 04-11-2025 Plastic Surgery Visit Report [facility] Plastic Reconstructive Surgery [address], [address] [place] [address] OFFICE VISIT Date of Service: 04/11/25 MR#: [id number] Acct: [id number] Name: TARIK DUNHAM Rep #: [id number] : 1950 Provider: Dr. Jimmie Newell MD Age/Sex: 75/F Location: [place] [address] Status: Signed Intake Vital Signs 03/24/25 10:27 Height 5 ft 5 in BP 119/76 Blood Pressure Location Lt brachial Position Sitting Respiration 18 Pulse 63 Temp 99.0 F Temp Source Temporal Pulse Oximetry (%) 96 Oxygen Delivery Method room air Intake Visit Reasons: 2 week follow up Chief Complaint: cyst on left index finger post op Is patient in pain?: No Allergies Iodinated Contrast Media (Iodinated Contrast Media - IV Dye) Allergy (Verified 04/11/25 13:42) Itching rosuvastatin Adverse Reaction (Verified 04/11/25 13:42) Myalgia Medications ???Medication ???Instructions ???Recorded ???Confirmed ???Type calcium-magnesium 750 mg-465 mg 1 tab PO DAILY 12/08/24 04/11/25 H istory tablet magnesium carb,citrate,oxide 100 mg PO DAILY 12/08/24 04/11/25 History (Magnesium Complex) ezetimibe 10 mg tablet (Zetia) 10 mg PO QDAY #30 tabs 12/20/24 Rx famotidine 20 mg tablet 20 mg PO QHS #90 tabs 01/23/25 Rx esomeprazole magnesium 40 mg 40 mg PO QDAY #90 caps 01/30/25 Rx capsule,delayed release Have you fallen in the past year?: No Subjective Details: Doing well 4 weeks out from mucous cyst excision. No drainage. No fevers/chills pain Objective Details: Left upper extremity: Cyst is involuted, no recurrence, no drainage. Expected postoperative swelling. Collateral ligament laxity present prior to surgery, PIP joint stiffness. Flexes and extends MCP, PIP, DIP. Hyperextends, no mallet or jersey finger. Sensation intact to light touch Capillary refill less than 2 seconds, skin is pink and warm. Coding Level of Care Code Global Post Op Diagnoses Mucous cyst of digit of left hand M67.442 [facility] Medical History History of Kolb's esophagus Back problem Tinnitus Wears glasses Cancer High cholesterol History of hiatal hernia CPAP (continuous positive airway pressure) dependence Non-smoker Leg cramps History of echocardiogram History of stress test Cardiology follow-up encounter Hyperlipidemia Hypothyroidism GERD (gastroesophageal reflux disease) Osteopenia Osteoarthritis Neuropathy Breast cancer Arthritis Surgical History Hx of colonoscopy History of esophagogastroduodenoscopy (EGD) Hx of right cataract extraction Hx of left cataract extraction History of right knee joint replacement History of tonsillectomy History of surgery on right wrist History of bilateral carpal tunnel release History of foot surgery History of shoulder surgery H/O bilateral mastectomy History of hysterectomy Family History Mother Breast cancer Father Myocardial infarction, Onset Age: 42 Heart disease Hypertension High cholesterol Grandmother CVA (cerebral vascular accident) Sister Breast cancer Aunt Breast cancer Social History Smoking Status: Never smoker alcohol intake: current alcohol intake frequency: a few times a week substance use type: does not use caffeine: Yes Type: coffee Number of servings: 6 what type of physical activity do you participate in: none additional social history: pt denies vaping, denies marijuana use, denies edibles pt denies blood clots Assessment and Plan (No Qualifiers) Assessment and Plan (1) Mucous cyst of digit of left hand: Status: Acute Plan: Healed well. O.K. to start bending the finger F/u with me in 1 month 04/11/25 1503 Date Jimmie Izquierdo Signature: Date (if applicable) CC: Normal [facility] Plastic Surgery Visit Report on 03-28-2025 Plastic Surgery Visit Report [facility] Plastic Reconstructive Surgery [address], [address] [place] [address] OFFICE VISIT Date of Service: 03/28/25 MR#: [id number] Acct: [id number] Name: TARIK DUNHAM Rep #: [id number] : 1950 Provider: JESSICA Mahajan Age/Sex: 75/F Location: [place] [address] Status: Signed Intake Vital Signs 3 03/24/25 10:27 Height 5 ft 5 in BP 119/76 Blood Pressure Location Lt brachial Position Sitting Respiration 18 Pulse 63 Temp 99.0 F Temp Source Temporal Pulse Oximetry (%) 96 Oxygen Delivery Method room air Intake Visit Reasons: SUTURE REMOVAL Chief Complaint: cyst on left index finger post op Is patient in pain?: Yes Allergies Iodinated Contrast Media (Iodinated Contrast Media - IV Dye) Allergy (Verified 03/28/25 13:52) Itching rosuvastatin Adverse Reaction (Verified 03/28/25 13:52) Myalgia Medications 3 ???Medication ???Instructions ???Recorded ???Confirmed ???Type calcium-magnesium 750 mg-465 mg 1 tab PO DAILY 12/08/24 03/28/25 H istory tablet magnesium carb,citrate,oxide 100 mg PO DAILY 12/08/24 03/28/25 History (Magnesium Complex) ezetimibe 10 mg tablet (Zetia) 10 mg PO QDAY #30 tabs 12/20/24 Rx famotidine 20 mg tablet 20 mg PO QHS #90 tabs 01/23/25 Rx esomeprazole magnesium 40 mg 40 mg PO QDAY #90 caps 01/30/25 Rx capsule,delayed release cephalexin 500 mg capsule 500 mg PO Q8H 7 days #21 caps 02/1503/28/25 Rx oxycodone 5 mg tablet 5 mg PO BID PRN pain 5 days #10 03/28/25 Rx tabs Have you fallen in the past year?: No Subjective Details: HPI from 03/14/25: TARIK DUNHAM, is a 75 F who was seen in consultation for mucous cyst on the left index finger. The cyst has been present for approximately three months and is associated with drainage of a sticky substance, particularly when wet with associated swelling, soreness. The patient initially thought it was a wart and has been applying a topical treatment for 10 days as advised. The patient also reports a history of tendon rupture in the right hand, leading to numbness and pain, which she suspects might be related to nerve damage or carpal tunnel syndrome. She experiences numbness in the fingertips and uses gabapentin at night for relief. Since her previous visit she reports no changes in her medications, health status. Recently her cyst was swelling and causing achiness she states she "popped" it and has some drainage again. Denies redness, fever, chills, new numbness, tingling. Date of Procedure: 03/14/25 Pre-Operative Diagnosis: Left index finger mucous cyst Post-Operative Diagnosis: Same Surgery/Procedure Performed: 1) Excision left index finger mucous cyst 03/24/2025: She is postop day 10 and continues to do well. She is doing gentle range of motion with her PIP joint. She denies incisional drainage, fever, chills, new numbness, weakness, tingling. Discussed pathology findings. The case was examined at [facility] by Dr. Butler (#[id number]) and the following diagnosis was rendered. A. Skin, left index finger, ???mucus cyst???, biopsy: Ganglion cyst Current encounter 03/28/2025: Patient is 2 weeks postop presenting today for suture removal. Continues to do well without recurrence. Still has PIP joint stiffness. Objective Details: Left upper extremity: Incision is intact, all sutures were removed without issues. Cyst is involuted, no recurrence, no drainage. Expected postoperative swelling. Collateral ligament laxity present prior to surgery, PIP joint stiffness. Flexes and extends MCP, PIP, DIP. Hyperextends, no mallet or jersey finger. Sensation intact to light touch Capillary refill less than 2 seconds, skin is pink and warm. Coding Level of Care Code Global Post Op Diagnoses Mucous cyst of digit of left hand M67.442 [facility] Medical History History of Kolb's esophagus Back problem Tinnitus Wears glasses Cancer High cholesterol History of hiatal hernia CPAP (continuous positive airway pressure) dependence Non-smoker Leg cramps History of echocardiogram History of stress test Cardiology follow-up encounter Hyperlipidemia Hypothyroidism GERD (gastroesophageal reflux disease) Osteopenia Osteoarthritis Neuropathy Breast cancer Arthritis Surgical History Hx of colonoscopy History of esophagogastroduodenoscopy (EGD) Hx of right cataract extraction Hx of left cataract extraction History of right knee joint replacement History of tonsillectomy History of surgery on right wrist History of bilateral carpal tunnel release History of foot surgery History of shoulder surgery H/O bilateral mastectom (more content not included)... Normal [facility] Plastic Surgery Visit Report on 03-24-2025 Plastic Surgery Visit Report [facility] Plastic Reconstructive Surgery [address], [address] [place], [place] [address] OFFICE VISIT Date of Service: 03/24/25 MR#: [id number] Acct: [id number] Name: TARIK DUNHAM Rep #: [id number] : 1950 Provider: Dr. Jimmie Newell MD Age/Sex: 75/F Location: [facility] Status: Signed Intake Vital Signs 3 03/17/25 10:23 03/24/25 10:27 Height 5 ft 5 in 5 ft 5 in BP 128/63 H 119/76 Blood Pressure Location Lt brachial Lt brachial Position Sitting Sitting Respiration 18 18 Pulse 59 L 63 Temp 98.1 F 99.0 F Temp Source Oral Temporal Pulse Oximetry (%) 96 96 Oxygen Delivery Method room air room air Intake Visit Reasons: 1 W FU Chief Complaint: cyst on left index finger post op Is patient in pain?: No Allergies Iodinated Contrast Media (Iodinated Contrast Media - IV Dye) Allergy (Verified 03/24/25 10:28) Itching rosuvastatin Adverse Reaction (Verified 03/24/25 10:28) Myalgia Have you fallen in the past year?: No Subjective Details: HPI from 03/14/25: TARIK DUNHAM, is a 75 F who was seen in consultation for mucous cyst on the left index finger. The cyst has been present for approximately three months and is associated with drainage of a sticky substance, particularly when wet with associated swelling, soreness. The patient initially thought it was a wart and has been applying a topical treatment for 10 days as advised. The patient also reports a history of tendon rupture in the right hand, leading to numbness and pain, which she suspects might be related to nerve damage or carpal tunnel syndrome. She experiences numbness in the fingertips and uses gabapentin at night for relief. Since her previous visit she reports no changes in her medications, health status. Recently her cyst was swelling and causing achiness she states she "popped" it and has some drainage again. Denies redness, fever, chills, new numbness, tingling. Date of Procedure: 03/14/25 Pre-Operative Diagnosis: Left index finger mucous cyst Post-Operative Diagnosis: Same Surgery/Procedure Performed: 1) Excision left index finger mucous cyst Current encounter 03/24/2025: She is postop day 10 and continues to do well. She is doing gentle range of motion with her PIP joint. She denies incisional drainage, fever, chills, new numbness, weakness, tingling. Discussed pathology findings. The case was examined at [facility] by Dr. Butler (#[id number]) and the following diagnosis was rendered. A. Skin, left index finger, ???mucus cyst???, biopsy: Ganglion cyst Objective Details: Left upper extremity: Incision is intact, sutures intact. Cyst is involuted, no drainage. Expected postoperative swelling. Collateral ligament laxity present prior to surgery, PIP joint stiffness. Flexes and extends MCP, PIP, DIP. Hyperextends, no mallet or jersey finger. Sensation intact to light touch Capillary refill less than 2 seconds, skin is pink and warm. Coding Level of Care Code Global Post Op Diagnoses Mucous cyst of digit of left hand M67.442 [facility] Medical History History of Kolb's esophagus Back problem Tinnitus Wears glasses Cancer High cholesterol History of hiatal hernia CPAP (continuous positive airway pressure) dependence Non-smoker Leg cramps History of echocardiogram History of stress test Cardiology follow-up encounter Hyperlipidemia Hypothyroidism GERD (gastroesophageal reflux disease) Osteopenia Osteoarthritis Neuropathy Breast cancer Arthritis Surgical History Hx of colonoscopy History of esophagogastroduodenoscopy (EGD) Hx of right cataract extraction Hx of left cataract extraction History of right knee joint replacement History of tonsillectomy History of surgery on right wrist History of bilateral carpal tunnel release History of foot surgery History of shoulder surgery H/O bilateral mastectomy History of hysterectomy Family History Mother Breast cancer Father Myocardial infarction, Onset Age: 42 Heart disease Hypertension High cholesterol Grandmother CVA (cerebral vascular accident) Sister Breast cancer Aunt Breast cancer Social History Smoking Status: Never smoker alcohol intake: current alcohol intake frequency: a few times a week substance use type: does not use caffeine: Yes Type: coffee Number of servings: 6 what type of physical activity do you participate in: none additional social history: pt denies vaping, denies marijuana use, denies edibles pt denies blood clots Assessment and Plan (No Qualifiers) Assessment and Pl (more content not included)... Normal [facility] Plastic Surgery Visit Report on 03-17-2025 Plastic Surgery Visit Report [facility] Plastic Reconstructive Surgery [address], [address] [place] [address] OFFICE VISIT Date of Service: 03/17/25 MR#: [id number] Acct: [id number] Name: TARIK DUNHAM Rep #: [id number] : 1950 Provider: Dr. Jimmie Newell MD Age/Sex: 75/F Location: [facility] Status: Signed Intake Vital Signs 03/14/25 06:25 03/17/25 10:23 Height 5 ft 5 in 5 ft 5 in BP 128/63 H Blood Pressure Location Lt brachial Position Sitting Respiration 18 Pulse 59 L Temp 98.1 F Temp Source Oral Pulse Oximetry (%) 96 Oxygen Delivery Method room air Intake Visit Reasons: post op Chief Complaint: cyst on left index finger post op Is patient in pain?: No Allergies Iodinated Contrast Media (Iodinated Contrast Media - IV Dye) Allergy (Verified 03/17/25 10:24) Itching rosuvastatin Adverse Reaction (Verified 03/17/25 10:24) Myalgia Have you fallen in the past year?: No Nurse's Note: pt here post mucous cyst left index finger, no pain Subjective Details: Doing well. Complaint with splint. Pain controlled. Objective Details: No drainage. Incision c/d/i. No induration and appropriate swelling. No mallet finger. Coding Level of Care Code Global Post Op Diagnoses Mucous cyst of digit of left hand M67.442 [facility] Medical History History of Kolb's esophagus Back problem Tinnitus Wears glasses Cancer High cholesterol History of hiatal hernia CPAP (continuous positive airway pressure) dependence Non-smoker Leg cramps History of echocardiogram History of stress test Cardiology follow-up encounter Hyperlipidemia Hypothyroidism GERD (gastroesophageal reflux disease) Osteopenia Osteoarthritis Neuropathy Breast cancer Arthritis Surgical History Hx of colonoscopy History of esophagogastroduodenoscopy (EGD) Hx of right cataract extraction Hx of left cataract extraction History of right knee joint replacement History of tonsillectomy History of surgery on right wrist History of bilateral carpal tunnel release History of foot surgery History of shoulder surgery H/O bilateral mastectomy History of hysterectomy Family History Mother Breast cancer Father Myocardial infarction, Onset Age: 42 Heart disease Hypertension High cholesterol Grandmother CVA (cerebral vascular accident) Sister Breast cancer Aunt Breast cancer Social History Smoking Status: Never smoker alcohol intake: current alcohol intake frequency: a few times a week substance use type: does not use caffeine: Yes Type: coffee Number of servings: 6 what type of physical activity do you participate in: none additional social history: pt denies vaping, denies marijuana use, denies edibles pt denies blood clots Assessment and Plan (No Qualifiers) Assessment and Plan (1) Mucous cyst of digit of left hand: Status: Acute Plan: Pathology pending Continue extension splint and finish antibiotics. F/u in 1 week 03/17/25 1110 Date Jimmie Newell MD Cosign Signature: Date (if applicable) CC: Normal [facility] SURG PATH REQUESTon 03-17-20 Case Report Normal [facility] Comment on above: Result Comment: Surg ica Pathology Report Case: [id number] Authorizing Provider: Naina Degroot MD Collected: 03/17/2025 09:25 AM Ordering Location: Dermatopathology Received: 03/17/2025 09:26 AM [facility] Pathologist: Brian Butler MD Specimen: SURG PATH, SKIN, LEFT INDEX FINGER Performed By: #### S URGP #### [facility] (DEFAULT) [address] [place] [address] Clinical History "Pre-Op Diagnosis: M ucous cyst of digit of left hand". Received is a request for second opinion by Naina Degroot M.D. 75 F with clinical "mucus cyst" left index finger; biopsy. From Op Note:...draining mucus cyst is the eponychial fold...plan to debride the cyst stalk and osteophytes around the joint and let the cyst involute over time..." R/O neoplasia Normal [facility] Comment on above: Performed By: #### S URGP #### [facility] (DEFAULT) [address] [address] Diagnosis Comments Thank you for the op portunity to consult with you on this case. [facility] Comment on above: Performed By: #### S URGP #### [facility] (DEFAULT) [address] [address] Gross Description Normal [facility] Comment on above: Result Comment: Rece ived from [facility], [address] [place] [address], are three slides labeled [id number] (A1 H&E, A1 RECUT X3, A1 RECUT X6) and one paraffin block marked [id number] (A1). An identifying pathology report is included. Outside materials returned in 60 days under separate cover with our number recorded on them. Grosser for this case was: Vicenta Vick Performed By: #### S URGP #### [facility] (DEFAULT) [address] [address] Microscopic Description [facility] Comment on above: Result Comment: A. H istologic sections show a pseudocystic space containing fibroblasts and mucin. Initial and multiple deeper sections were examined. p63 is negative. Immunoperoxidase staining was performed by the [facility] Histology Laboratory on sections cut from the paraffin block submitted by the outside facility. All controls show appropriate reactivity. All immunohistochemistry (IHC), in situ hybridization (MATTHIAS), and histochemical tests were developed by and are performed at the [facility] Clinical Laboratory, Histology and IHC Lab, [address] [place] [address], [place] [address]. All Immunofluorescent (IF) tests were developed by and are performed at the [facility], Renal Division, [address] [place] [address]. All tests reported here, except for PD-L1, have not been cleared by or approved by the [place] Food and Drug Administration (FDA). The laboratory is regulated under CLIA as qualified to perform high-complexity testing. The tests are used for clinical purposes. They should not be regarded as investigational or for research. Performed By: #### S URGP #### [facility] (DEFAULT) [address] [place] [address] Pathologic Diagnosis [facility] Comment on above: Result Comment: OUTS BHASKAR SLIDES: [id number] (03/14/2025) A. Skin, left index finger, "mucus cyst", biopsy: Ganglion cyst. at 0921 EDT Performed By: #### S URGP #### [facility] (DEFAULT) [address] [place] [address] Professional Interpretation Performed at: [facility] Comment on above: Result Comment: [facility] For Immediate Release [facility] Yes [address] [place] [address], [address] [place] [address] Performed By: #### S URGP #### [facility] (DEFAULT) [address] [place] [address] Office Visiton 03-15-2025 Follow-up visit [id number] Perla Dunham 1950 F Date Provider Department Center 03/15/2025 [id number], RYAN SH[facility] ORT ISAAC None No family history on file Level of Service:63545 CO OFFICE/OUTPATIENT ESTABLISHED MOD MDM 30 MIN Reason for Visit and Comments: Follow-up [202978] - F/u new dx- left hip pain- discuss options "may consider surgery" Normal [facility] Progress Noteon 03-15-2025 Progress Note [facility] ORTHOPE DICS - CIRA [address] [place] [address] [place] [address] Dept: [phone] Dept 03/15/2025 Chief Complaint Patient presents with Follow-up F/u new dx- left hip pain- discuss options "may consider surgery" Subjective: Tarik is a 75 y.o. female who presents for evaluation of the left hip. Symptoms began gradually several years ago. She describes the symptoms as sharp. Pain location: groin and side of hip/laterally. Symptoms improve with medication: Tylenol. The symptoms are exacerbated by activity, stair climbing, weight bearing. Able to walk 1 blocks and is able to use stairs. Overall, the patient feels as if this condition is mildly impacting their quality of life and ability to do activities of daily living. No associated radicular pain contributing nor any radiating hip pain. She has Kolb's Esophagus. Hiatal Hernia. She had a Cardiology and blood clot history. Previous Surgery: No Non-operative treatment has consisted of: NSAIDS: No Cortisone injections: No Assistive Devices: No Therapy: No Narcotics: No Activity modification: Yes Attempted Weight Loss: No Medications reviewed Review of Systems Constitutional: Negative for activity change. HENT: Negative for congestion. Cardiovascular: Negative for leg swelling. Musculoskeletal: Positive for arthralgias, gait problem and joint swelling. Skin: Negative for wound. Neurological: Negative for weakness. Medical History[1] Surgical History[2] Social History Socioeconomic History Marital status: Spouse name: Not on file Number of children: Not on file Years of education: Not on file Highest education level: Not on file Occupational History Not on file Tobacco Use Smoking status: Never Smokeless tobacco: Never Vaping Use Vaping status: Never Used Substance and Sexual Activity Alcohol use: Yes Comment: liquor with dinner 3x week Drug use: Never Sexual activity: Not on file Other Topics Concern Not on file Social History Narrative Not on file Social Drivers of Health Financial Resource Strain: Low Risk (10/12/2024) Received from [facility] Overall Financial Resource Strain (CARDIA) Difficulty of Paying Living Expenses: Not hard at all Food Insecurity: No Food Insecurity (10/12/2024) Received from [facility] Hunger Vital Sign Worried About Running Out of Food in the Last Year: Never true Ran Out of Food in the Last Year: Never true Transportation Needs: No Transportation Needs (10/12/2024) Received from [facility] PRAPARE - Transportation Lack of Transportation (Medical): No Lack of Transportation (Non-Medical): No Physical Activity: Insufficiently Active (10/12/2024) Received from [facility] Exercise Vital Sign Days of Exercise per Week: 3 days Minutes of Exercise per Session: 30 min Stress: No Stress Concern Present (10/12/2024) Received from [facility] [place] [employer] Occup[employer] - Occupational Stress Questionnaire Feeling of Stress : Not at all Social Connections: Unknown (10/12/2024) Received from [facility] Social Connection and Isolation Panel [NHANES] Frequency of Communication with Friends and Family: More than three times a week Frequency of Social Gatherings with Friends and Family: More than three times a week Attends Zoroastrianism Services: More than 4 times per year Active Member of Clubs or Organizations: Patient declined Attends Club or Organization Meetings: Patient declined Marital Status: Intimate Partner Violence: Not on file Housing Stability: Unknown (12/07/2019) Received from [facility] Housing Stability Vital Sign Unable to Pay for Housing in the Last Year: No Number of Places Lived in the Last Year: Not on file Unstable Housing in the Last Year: No Family History[3] Allergies[4] Objective: Ht 5' 6" (1.676 m) Wt 140 lb (63.5 kg) BMI 22.60 kg/m? Pt is a WD/WN female in no acute distress. She appears her stated age. Mood and affect are normal. She is A&O x 3. Gait: antalgic and stiff-legged. RIGHT HIP: Skin is warm, dry and intact. There are no rashes, lesions, or obvious scars. No tenderness to palpation. Greater trochanter is not tender. ROM shows flexion 110, IR 30, ER 40, without pain. Stinchfield exam: negative. +PF/DF/EHL. SILT distally. DP/PT palpable. Straight leg raise negative for inciting radicular symptoms. LEFT HIP: Skin is warm, dry and intact. There are no rashes, lesions, or obvious scars. No tenderness to palpation. Greater trochanter is not tender. ROM shows flexion 70, IR 10, ER 20, with pain. Stinchfield exam: positive. +PF/DF/EHL. SILT distally. DP/PT palpable. Straight leg raise negative for inciting radicular symptoms. The patient does have a leg length discrepancy and measures 3-4mm short on the left. Lab Findings: RELEVANT LABS: none Radiology Findings: 03/15/25 images ob (more content not included)... Normal [facility] Surgical pathology reportOrd ered By: Naina Degroot on 03-15-2025 Surgical pathology study [facility] XR ESOPHAGRAMon 03-15-2025 XR ESOPHAGRAM * * *Final Report* * * DATE OF EXAM: Mar 15 2025 2:30PM AWX [id number] - XR ESOPHAGRAM / PROCEDURE REASON: Esophageal dysphagia * * * * Physician Interpretation * * * * EXAM TITLE: XR ESOPHAGRAM DATE: 03/15/2025 INDICATION: Dysphagia COMPARISON: None. This study was performed by Zoey Deutsch RPA. Images were submitted for my interpretation. 108 images were obtained. 1 minute and 31 seconds of fluoroscopic time utilized. Initially with patient upright, barium was given orally and AP and lateral cine esophagography was performed during single swallows. Normal pharyngeal and laryngeal motion with swallowing. No aspiration or laryngeal penetration. Remainder the esophagus was examined with patient upright as well as lying semiprone. Stricture: None. Ulceration/erosions: None. Motility: Abnormal primary and secondary peristaltic waves with to-and-fro motion of the barium column in the upper to mid esophagus. Occasional tertiary contractions. Hiatal hernia: Small sliding-type hiatal hernia. It measures approximately 3.5 to 4.0 cm in length. Gastroesophageal reflux: None demonstrated on this exam. 13 mm barium tablet: Administered orally and passed freely into the stomach. Other: 10 mm diverticulum arising off the right side of the distal esophagus. IMPRESSION: 1. Small sliding-type hiatal hernia. 2. No gastroesophageal reflux demonstrated on this exam. 3. Small diverticulum arising off the distal esophagus. 4. Abnormal motility with to and fro motion of barium column in the upper to mid esophagus. Licensing Director: PSCB Transcribe Date/Time: Mar 15 2025 2:44P Dictated by : ASHWIN OVALLE MD This examination was interpreted and the report reviewed and electronically signed by: ASHWIN OVALLE MD on Mar 15 2025 2:49PM EST [id number] Normal [facility] H AND P Exam - Surgicalon 09 -30-2025 H&P Exam - Surgical [facility] Medical Records Department [address] [place] [address] H P Exam - Surgical 03/14/25 0723 MR#: [id number] Acct: [id number] Name: TARIK DUNHAM Rep #: [id number] : 1950 75 From: Jessy LOPEZ PCP: Dr. Garo Steele MD Status:[facility] Location: [place] [address] HPI - General HPI Narrative TARIK DUNHAM, is a 75 F who was seen in consultation for mucous cyst on the left index finger. The cyst has been present for approximately three months and is associated with drainage of a sticky substance, particularly when wet with associated swelling, soreness. The patient initially thought it was a wart and has been applying a topical treatment for 10 days as advised. The patient also reports a history of tendon rupture in the right hand, leading to numbness and pain, which she suspects might be related to nerve damage or carpal tunnel syndrome. She experiences numbness in the fingertips and uses gabapentin at night for relief. Since her previous visit she reports no changes in her medications, health status. Recently her cyst was swelling and causing achiness she states she "popped" it and has some drainage again. Denies redness, fever, chills, new numbness, tingling. ROS: - Dermatological: Reports mucous cyst on the left index finger with drainage. - Neurological: Reports numbness and pain in the right hand, particularly in the fingertips. [facility] Medical History (Updated 02/28/25 @ 09:05 by Luna Gomez) History of Kolb's esophagus Back problem Tinnitus Wears glasses Cancer High cholesterol History of hiatal hernia CPAP (continuous positive airway pressure) dependence Non-smoker Leg cramps History of echocardiogram History of stress test Cardiology follow-up encounter Hyperlipidemia Hypothyroidism GERD (gastroesophageal reflux disease) Osteopenia Osteoarthritis Neuropathy Breast cancer Arthritis Home Medications ???Medication ???Instructions ???Recorded ???Last Taken ???Type calcium-magnesium 750 mg-465 mg 1 tab PO DAILY 12/08/24 Unknown Hi story tablet magnesium carb,citrate,oxide 100 mg PO DAILY 12/08/24 Unknown H istory (Magnesium Complex) ezetimibe 10 mg tablet (Zetia) 10 mg PO QDAY #30 tabs 12/20/24 Rx famotidine 20 mg tablet 20 mg PO QHS #90 tabs 01/23/25 Unk nown Rx esomeprazole magnesium 40 mg 40 mg PO QDAY #90 caps 01/30/25 Rx capsule,delayed release Allergy/AdvReac Type Severity Reaction Status Date / Time Iodinated Contrast Media Allergy Itching Verified 03/14/25 06:22 (Iodinated Contrast Media - IV Dye) rosuvastatin AdvReac Myalgia Verified 03/14/25 06:22 Family History Mother Breast cancer Father Myocardial infarction, Onset Age: 42 Heart disease Hypertension High cholesterol Grandmother CVA (cerebral vascular accident) Sister Breast cancer Aunt Breast cancer Surgical History (Updated 02/28/25 @ 09:05 by Luna Gomez) Hx of colonoscopy History of esophagogastroduodenoscopy (EGD) Hx of right cataract extraction Hx of left cataract extraction History of right knee joint replacement History of tonsillectomy History of surgery on right wrist History of bilateral carpal tunnel release History of foot surgery History of shoulder surgery H/O bilateral mastectomy History of hysterectomy Social History Smoking Status: Never smoker alcohol intake: current alcohol intake frequency: a few times a week substance use type: does not use caffeine: Yes Type: coffee Number of servings: 6 what type of physical activity do you participate in: none additional social history: pt denies vaping, denies marijuana use, denies edibles pt denies blood clots ROS ROS Narrative General: Denies fever, chills HEENT: Denies headaches, vision changes, sore throat Cardio: Denies chest pain, leg edema Pulmonary: Denies shortness of pain, cough, wheezing GI: Denies nausea, vomiting, diarrhea Vital Signs Vital Signs Vital Signs: 03/14/25 06:25 03/14/25 06:25 Temperature 97.5 F L Temperature Source Temporal Pulse Rate 57 L Respiratory Rate 16 Respiratory Pattern Normal Blood Pressure 121/77 H Blood Pressure Mean 91 Blood Pressure Source Monitor Blood Pressure Position Sitting Blood Pressure Location Left Arm Pulse Ox 100 Oxygen Delivery Method Room Air Weight Weight: 149 lb Body Mass Index (BMI) 24.7 Physical Exam Narrative Afebrile/VSS. Alert and oriented in bed in no acute distress No respiratory distress, speaks in full sentences without effort. Abdomen soft in all 4 quadrants Left upper extremity Left index finger mucoid cyst that is open without young (more content not included)... [facility] MR/POSTOP.ANEon 03-14-2025 MR/POSTOP.ANE [facility] Medical Records Department [address] [place] [address] Anesthesia Postop Eval I 03/14/25811 MR#: [id number] Acct: [id number] Name: TARIK DUNHAM Rep #: [id number] : 1950 75 From: Elzbieta Roblero CRNA PCP: Dr. Garo Steele MD Status:[facility] Y Race: C Location: [place] [address] Anesthesia: Postop Eval I Current Vital Signs Temperature: 98.7 F Pulse Rate: 62 Blood Pressure: 141/68 Respiratory Rate: 14 Pulse Ox: 97 Oxygen Delivery Method: Room Air Assessment Airway patent: Yes Spontaneous unlabored respirations: Yes Mental status: Awake nausea: No Vomiting: No Anesthesia Complication: No Fluid Hydration Crystalloid volume administer (ml): 500 Total IV fluid infused: 500 Progress Note Anesthesia document: Postop Eval 1 completed: Yes 03/14/25829 Date Elzbieta Roblero CRNA Cosigner Signature: Date CC: Signed [facility] MR/[id number] 03-14-2025 MR/POSTOPAN2 [facility] Medical Records Department [address] [place] [address] Anesthesia Postop Eval II 03/14/25912 MR#: [id number] Acct: [id number] Name: TARIK DUNHAM Rep #: [id number] : 1950 75 From: Aaron Malone MD PCP: Dr. Garo Steele MD Status:[facility] Y Race: C Location: [place] [address] Anesthesia Postop Eval I Sum Postop Eval Completion status Anesthesia document: Postop Eval 1 completed: Yes Anesthesia Postop Eval I Summary Anesthesia Postop Eval I Summary: Anesthesia Postop Eval I: Assessment Summary Airway patent Yes 03/14/25 08:14 COMMUNITY RELATIONS ASSISTANT.HBARR Spontaneous unlabored Yes 03/14/25 08:14 COMMUNITY RELATIONS ASSISTANT.HBARR respirations Mental status Awake 03/14/25 08:14 COMMUNITY RELATIONS ASSISTANT.HBARR nausea No 03/14/25 08:14 COMMUNITY RELATIONS ASSISTANT.HBARR Vomiting No 03/14/25 08:14 COMMUNITY RELATIONS ASSISTANT.HBARR Anesthesia Postop Eval I: Fluid Summary Crystalloid volume administer 500 03/14/25 08:14 COMMUNITY RELATIONS ASSISTANT.HBARR (ml) Colloids volume administered ( ml) Blood Product volume administered (ml) Total IV fluid infused 500 03/14/25 08:14 COMMUNITY RELATIONS ASSISTANT.HBARR Anesthesia Postop Eval I: Summary Notes Anesthesia Complication No 03/14/25 08:14 COMMUNITY RELATIONS ASSISTANT.HBARR Anesthesia Complication Comment: Post-operative progress note Anesthesia: Postop Eval II Evaluation Mental status: Awake and Calm Pain Level: 1 nausea: No Vomiting: No Complications Anesthesia Complication: No 03/14/25912 Date Aaron Malone MD Cosigner Signature: Date CC: Signed Normal [facility] Operative Reporton 5 Operative Report [facility] Medical Records Department [address] [place] [address] Operative Report 03/14/25 0745 MR#: [id number] Acct: [id number] Name: TARIK DUNHAM Rep #: [id number] : 1950 75 From: Jimmie Newell MD PCP: Dr. Garo Steele MD Status:[facility] Location: [place] [address] Operative Report (Standard) Operative Information Date of Procedure: 03/14/25 Pre-Operative Diagnosis: Left index finger mucous cyst Post-Operative Diagnosis: Same Surgery/Procedure Performed: 1) Excision left index finger mucous cyst mobile application engineer: Yes Supervisor Lime: Jessy Roman Tasks completed by first coat sander: Retracting Type of Anesthesia: Local MAC (7 cc of 50-50 mixture of 1% lidocaine with quarter percent Marcaine) RN Documented Start/Stop Times: Operation Date: 03/14/25 07:30 Case Time Into Pre-Op 03/14/25 06:11 Out of Pre-Op 03/14/25 07:32 Anesthesia Start 03/14/25 07:39 Into Room 03/14/25 07:39 Procedure Start 03/14/25 07:56 Procedure End 03/14/25 08:22 Anesthesia End 03/14/25 08:25 Out of Room 03/14/25 08:25 Into Recovery 03/14/25 08:29 Into Phase II Recovery 03/14/25 08:44 Out of Recovery 03/14/25 08:44 Procedure Start Time: 07:56 Procedure Stop Time: 08:22 Select all DRAINS/GRAFTS/IMPLANTS that apply: None Estimated Blood Loss: Minimal Specimen collected: Yes Description of specimen(s) removed: Cyst stalk and osteophyte contents Description of surgery: Indications: Patient is a 75-year-old female with a draining mucous cyst in the eponychial fold of the left index finger. She presents today for excision. She understands the risks, benefits, and alternatives to the procedure, as well as the plan to debride the cyst stalk and osteophytes around the joint and let the cyst involute over time (no direct excision). Procedure details: Patient was correct identified in preoperative holding and taken back to the operating room where she was administered sedation and local anesthesia as noted above. She was prepped and draped in sterile fashion and all proper timeouts were performed. A 15 blade scalpel was used to make a direct incision over the DIP joint dorsally after turnicot was applied (care was taken to remove the turnicot at the end of the case). Dorsal veins were cauterized with bipolar electrocautery and care was taken to preserve the terminal slip insertion. 15 blade scalpel was used to enter the joint between the collateral ligaments and the terminal slip on the radial and ulnar aspects. A curette was used to debride osteophytes from within the joint and debride the stalk that was underneath the eponychial fold (where the cyst skin was present). The stalk and some osteophyte material was sent to pathology. The wound was irrigated with copious amounts normal saline and Irrisept. The turnicot was removed and hemostasis obtained with topical 1% lidocaine with 1-200,000 epinephrine (10 cc). The wound was closed with interrupted 4-0 nylon sutures and Xeroform, Verito, AlumaFoam splint (DIP joint extension) and Coban were applied. Patient tolerated the procedure well. She was awakened taken the PACU in stable condition. Postoperative plan: Continue DIP joint extension splinting for 1 month. Follow-up in 2 days for wound check before the weekend. She is prescribed 1 week of Keflex. Surgical Findings: Cyst stalk coming from the ulnar aspect of the dorsal DIP joint. Complications Complications: No 03/14/25901 Cosigner Signature (if applicable): CC: Dr. Jimmie Newell MD; Dr. Garo Steele MD Signed Normal [facility] Surgery Specimen Level IIIon 03-14-2025 Surgery Specimen Level III ----- Patient Age/Sex Location Account Attending Physician ----- TARIK DUNHAM 75/F [facility] [id number] Dr. Jimmie Newell MD ----- Specimen: [id number] Received: 03/14/25 Status: SHEREE Arenas Num: [id number] Spec Type: Cyst Subm Dr: Dr. Jimmie Newell MD HEADER OPERATION: Excision mucous cyst left index finger PRE-OP DIAGNOSIS: Mucous cyst of digit of left hand TISSUE SUBMITTED: A- Left index finger cyst contents ----- MICROSCOPIC DIAGNOSIS A. Skin, left index finger, "mucus cyst", biopsy: * Diagnosis is PENDING expert consultation at [facility]. An addendum report will follow with the Final Diagnosis. MICROSCOPIC DESCRIPTION Slides are reviewed. GROSS DESCRIPTION A. Received in formalin labeled with the patient's name and date of . Designated as left index finger cyst contents" is a 0.6 x 0.4 x 0.1 cm aggregate of pink-solomon and white tissue fragments entirely submitted in 1 cassette. GA 03/14/2025 CPT:61339 ----- Patient Age/Sex Location Account Attending Physician ----- CHARLATARIK JAGDISH 75/F [facility] [id number] Dr. Jimmie Newell MD ----- Signed (signature on file) Dr. Naina Degroot MD 03/15/25 1445 ----- Normal [facility] Comment on above: Performed By: #### P DARELL JONES ####[facility] [id number] [place], [place], [id number] Surgery Specimen Level [place] 03-14-2025 Surgery Specimen Level IV ----- Patient Age/Sex Location Account Attending Physician ----- CHARLATARIK JAGDISH 75/F [facility] [id number] Dr. Jimmie Newell MD ----- Specimen: [id number] Received: 03/14/25 Status: SHEREE Arenas Num: [id number] Spec Type: Cyst Subm Dr: Dr. Jimmie Newell MD HEADER OPERATION: Excision mucous cyst left index finger PRE-OP DIAGNOSIS: Mucous cyst of digit of left hand TISSUE SUBMITTED: A- Left index finger cyst contents ----- MICROSCOPIC DIAGNOSIS A. Skin, left index finger, "mucus cyst", biopsy: * Diagnosis is PENDING expert consultation at [facility]. An addendum report will follow with the Final Diagnosis. MICROSCOPIC DESCRIPTION Slides are reviewed. GROSS DESCRIPTION A. Received in formalin labeled with the patient's name and date of . Designated as left index finger cyst contents" is a 0.6 x 0.4 x 0.1 cm aggregate of pink-solomon and white tissue fragments entirely submitted in 1 cassette. [place] 03/14/2025 CPT:50681 ----- ADDENDUM Addendum 1 Entered: 03/20/25 This addendum is added to incorporate an outside pathology consultation report. The case was examined at [facility] by Dr. Butler (#[id number]) and the following diagnosis was rendered. A. Skin, left index finger, "mucus cyst", biopsy: Ganglion cyst. Microscopic Description: A. Histologic sections show a pseudocystic space containing fibroblasts and mucin. Initial and multiple deeper sections were examined. P63 is negative. ----- Patient Age/Sex Location Account Attending Physician ----- TARIK DUNHAM 75/F [facility] [id number] Dr. Jimmie Newell MD ----- ADDENDUM (Continued) Immunoperoxidase staining was performed by the [facility] on sections cut from the paraffin block submitted by the outside facility. Please see complete above mentioned consultation report in EMR Addendum Signed (signature on file) Dr. Naina Degroot MD 03/20/25 0950 ----- ----- Patient Age/Sex Location Account Attending Physician ----- TARIK DUNHAM 75/F [facility] [id number] Dr. Jimmie Newell MD ----- Signed (signature on file) Dr. Naina Degroot MD 03/15/25 1445 ----- Normal [facility] Comment on above: Performed By: #### P DARELL JONES ####[facility] [id number] [place], [place], [address] CNOVon 03-02-2025 CNOV Office Visit (AGGENS 4) TARIK DUNHAM ([id number]) 1950 F Date Time Provider Department 03/02/25 11:30 AM BUD STONE4 During your visit today, we recorded the following information about you: Pulse Blood pressure Weight Height 61/minute 106/70 67.7 kg 1.676 m Bud Stone MD 03/02/2025 11:52 AM Signed SURGICAL SERVICES HISTORY AND PHYSICAL EXAMINATION SERVICE DATE: 03/02/2025 SERVICE TIME: 11:08 AM PRIMARY CARE PHYSICIAN: Garo Steele MD SUBJECTIVE CHIEF COMPLAINT: wants a second opinion HISTORY OF PRESENT ILLNESS: Mrs. Dunham is a 74 year old female with a PMH of breast CA (s/p mastectomy w/ reconstruction), GERD, hiatal hernia, dysphagia, HLD, osteopenia, OA, Kolb's esophagus who presents for surgical consultation. Surgical [...] 6-7 years. When she moved back to [place] 5 years ago her symptoms of GERD [...] BREAST RECONSTRUCTION Bilateral 12/2016 Dr. Gastelum in [place] TONSILLECTOMY PRIMARY/SECONDARY Tonsillectomy TOTAL KNEE REPLACEMENT Right 03/24/2023 [facility] VAG HYST 250 GM/< W/RMVL TUBEAND/OVARY 12/22/2013 TVH/BSO WRIST RIGHT OP SURGERY Right 2018 ORIF Wrist fracture FAMILY HISTORY: FAMILY HISTORY Problem Relation Age of Onse (more content not included)... Normal [facility] MR/PAT.Michelle 02-28-2025 MR/PAT.MIKE [facility] Medical Records Department [address] [place] [address] PAT - Anesthesia 02/28/25 0912 MR#: [id number] Acct: [id number] Name: TARIK DUNHAM Rep #: [id number] : 1950 74 From: Aaron Malone MD PCP: Dr. 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 When Was Last Pacemaker Check QUESTION #4 FULL TEXT: You/Your Family Experience fever (hyperthermia) with Anesthesia Last Oral Intake Last Oral intake: Last Oral Intake NPO since Meds taken in AM with sips of water? Meds patient instructed to take am of surgery PONV PONV - electronic controls repairer supervisor: PONV - electronic controls repairer supervisor Female Yes 02/28/25 08:58 HX of Motion Sickness No 02/28/25 08:58 HX of N/V After Surgery No 02/28/25 08:58 Non-Smoker Yes 02/28/25 08:58 Duration of Surgery greater No 02/28/25 08:58 than 60 minutes Number of Risk Factors 2 02/28/25 08:58 PONV Score Moderate Risk 02/28/25 08:58 Height Weight Height Weight: Anesthesia: Height Weight Height 5 ft 5 in 12/09/24 11:02 Respiratory Assessment Respiratory Assessment - electronic controls repairer supervisor: Respiratory Tract Infection Hx - electronic controls repairer supervisor Hx Respiratory Tract Infection No 02/28/25 08:58 STOP Sleep Apnea STOP Sleep Apnea - electronic controls repairer supervisor: STOP Sleep Apnea - electronic controls repairer supervisor Hx Hypertension No 02/28/25 08:58 Hx Sleep Apnea Yes 02/28/25 08:58 CPAP Yes 02/28/25 08:58 BIPAP No 02/28/25 08:58 Do you snore loudly (louder than talking or can be heard Do you often feel tired/ fatigued/ sleepy during daytime? Has anyone observed you stop breathing during sleep? STOP Results Positive 02/28/25 08:58 QUESTION #5 FULL TEXT : Do you snore loudly (louder than talking or can be heard through closed doors)? 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 Specify any problems Hx of Preganancy in last 3 No 02/28/25 08:58 Months Nurse Filling Out Transfusion DSCHRIBER 02/28/25 08:58 Questions: Date: 02/28/25 02/28/25 08:58 Time: 08:59 02/28/25 08:58 Patient unable to answer at this time (ie. 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 Hx Now No 02/28/25 08:58 Gestational Age (in weeks): EDC: Hx Hx Para Hx Section SAB No 02/28/25 08:58 PFSH Medical History (Updated 02/28/25 @ 09:05 by Luna Gomez) History of Kolb's esophagus Back problem Tinnitus Wears glasses Cancer High cholesterol History of hiatal hernia CPAP (continuous positive airway pressure) dependence Non-smoker Leg cramps History of echocardiogram History of stress test Cardiology follow-up encounter Hyperlipidemia Hypothyroidism GERD (gastroesophageal reflux disease) Osteopenia Osteoarthritis Neuropathy Breast cancer Arthritis Home Medications ???Medication ???Instructions ???Recorded ???Last Taken ???Type calcium-magnesium 750 mg-465 mg 1 tab PO DAILY 12/08/24 Unknown Hi story tablet magnesium carb,citrate,oxide 100 mg PO DAILY 12/08/24 Unknown H istory (Magnesium Complex) ezetimibe 10 mg tablet (Zetia) 10 mg PO QDAY #30 tabs 12/20/24 Un known Rx famotidine 20 mg tablet 20 mg PO QHS #90 tabs 01/23/25 Unk nown Rx esomeprazole magnesium 40 mg 40 mg PO QDAY #90 caps (more content not included)... [facility] 29on 02-06-2025 29 Addended by: JAYLAN GAN on: 02/06/2025 09:44 AM Modules accepted: Orders [facility] 29 Addended by: ERICK WILDER on: 02/06/2025 09:33 AM Modules accepted: Orders [facility] 36on 02-06-2025 36 Just until 03-24-25 Please sign [facility] 36 Name of caller: Jewell hernandez Contact phone number: [phone] Relationship to Patient: patient Provider: Isaías Practice: Ortho Chief Complaint/Reason for Call: Patient called in stating she has a dental cleaning appointment for tomorrow 02/07- wondering if she still needs a dental prophyaxis prior too. She is s/p left tka on 03/24/2023. If she does please send antibiotic to [facility] pharmacy in [place]. If she no longer needs the antibiotic please upload a letter in her mychart to show to the dental clinic as she does not have the fax number at this time. Best time of day caller can be reached: any Patient advised that office/PCP has 24-48 business hours to return their call: No [facility] Finger(s) Min 2 Viewson 01-13 Finger(s) Min 2 Views [facility] [address] [place] [address] Finger(s) Min 2 Views MR#: [id number] Acct: [id number] Name: TARIK DUNHAM Rep #: [id number] : 1950 F 74 From: Sukumar jauregui MD PCP: Dr. Garo Steele MD Status: DEP AMB Study: Finger(s) Min 2 Views Date of Exam: 01/31/25 Exam# [id number] Ordering Dr: Jimmie Newell MD PROCEDURE: FINGER(S) MIN 2 VIEWS 01/31/2025 REASON FOR EXAM: CYST TECHNIQUE: FINGER(S) MIN 2 VIEWS Laterality: Left COMPARISON: None FINDINGS: Bones: No bony destruction or fracture is seen. Joints: Normal alignment. Mild degenerative changes. Soft tissues: Focal soft tissue swelling overlying the dorsal aspect of the distal interphalangeal joint of the index finger. Other: RAD/Finger(s) Min 2 Views IMPRESSION: Degenerative changes. Focal soft tissue swelling overlying the dorsal aspect of the distal interphalangeal joint of the index finger. Reading Location: [id number] CC: Dr. Jimmie Newell MD; Dr. Garo Steele MD Licensing Director: Signed Normal [facility] Plastic Surgery Visit Report on 01-31-2025 Plastic Surgery Visit Report [facility] [address] [place] [address] OFFICE VISIT Date of Service: 01/31/25 MR#: [id number] Acct: [id number] Name: TARIK DUNHAM Rep #: [id number] : 1950 Provider: Dr. Jimmie Newell MD Age/Sex: 74/F Location: [place] [address] Status: Signed with Addenda ADDENDUM by Dr. Jimmie Newell MD on 02/01/25 at 1502 Assessment and Plan (No Qualifiers) Assessment and Plan (1) Mucous cyst of digit of left hand: Status: Acute Plan: CPT codes for insurance prior authorization are as follows: 00114, 39084 02/01/25 1502 Date Jimmie Newell MD cc: * Signed Intake Vital Signs 3 12/09/24 11:02 Height 5 ft 5 in Intake Visit Reasons: CYST ON FINGER Chief Complaint: cyst on left index finger Accompanied by: Is patient in pain?: Yes (5/10) Allergies Iodinated Contrast Media (Iodinated Contrast Media - IV Dye) Allergy (Verified 01/31/25 14:15) Itching rosuvastatin Adverse Reaction (Verified 01/31/25 14:15) Myalgia Medications 3 ???Medication ???Instructions ???Recorded ???Confirmed ???Type gabapentin 300 mg capsule 300 mg PO QHS 11/21/22 01/31/25 Hi story calcium-magnesium 750 mg-465 mg 1 tab PO DAILY 12/08/24 01/31/25 H istory tablet magnesium carb,citrate,oxide 100 mg PO DAILY 12/08/24 01/31/25 History (Magnesium Complex) ezetimibe 10 mg tablet (Zetia) 10 mg PO QDAY #30 tabs 12/20/24 Rx diltiazem HCl 30 mg tablet 30 mg PO BID #60 tabs 01/03/25 Rx (Cardizem) famotidine 20 mg tablet 20 mg PO QHS #90 tabs 01/23/25 Rx esomeprazole magnesium 40 mg 40 mg PO QDAY #90 caps 01/30/25 Rx capsule,delayed release Have you fallen in the past year?: No PFSH Medical History Back problem Tinnitus Wears glasses Cancer High cholesterol History of hiatal hernia CPAP (continuous positive airway pressure) dependence Non-smoker Leg cramps History of echocardiogram History of stress test Cardiology follow-up encounter Thyroid nodule Hyperlipidemia Hypothyroidism GERD (gastroesophageal reflux disease) Osteopenia Osteoarthritis Neuropathy Carpal tunnel syndrome Cataracts, bilateral Breast cancer Arthritis Seasonal allergies Surgical History History of right knee joint replacement History of tonsillectomy History of surgery on right wrist History of bilateral carpal tunnel release History of foot surgery History of shoulder surgery H/O bilateral mastectomy History of hysterectomy Family History Mother Breast cancer Father Myocardial infarction, Onset Age: 42 Heart disease Hypertension High cholesterol Grandmother CVA (cerebral vascular accident) Sister Breast cancer Aunt Breast cancer Social History Smoking Status: Never smoker alcohol intake: current alcohol intake frequency: a few times a week substance use type: does not use caffeine: Yes Type: coffee Number of servings: 6 what type of physical activity do you participate in: none additional social history: pt denies vaping, denies marijuana use, denies edibles pt denies blood clots HPI CYST ON FINGER Details: The patient is a 74-year-old female presenting with a mucous cyst on the left index finger. The cyst has been present for approximately three months and is associated with drainage of a sticky substance, particularly when wet. The patient initially thought it was a wart and has been applying a topical treatment for 10 days as advised. The patient also reports a history of tendon rupture in the right hand, leading to numbness and pain, which she suspects might be related to nerve damage or carpal tunnel syndrome. She experiences numbness in the fingertips and uses gabapentin at night for relief. ROS: - Dermatological: Reports mucous cyst on the left index finger with drainage. - Neurological: Reports numbness and pain in the right hand, particularly in the fingertips. Attestation: Documentation on this patient encounter was supported using ambient scribe technology/ voice AI technology. The patient consented to recording for the purpose of documenting the encounter. Provider reviewed content of the generated note prior to signature. ROS General General: Yes good health; No fatigue, fever(s) or weight loss HENMT HENMT: No rhinitis, sore throat/mouth sore, nasal congestion, contacts or glaucoma Endo Endocrine: No thyroid disease, polydipsia, heat intolerance, cold intolerance, hepatitis or excessive urine Skin (more content not included)... [facility] Gastroenterology Visit Repor ton 01-23-2025 Gastroenterology Visit Report [facility] [address] [place] [address] OFFICE VISIT Date of Service: 01/23/25 MR#: [id number] Acct: [id number] Name: TARIK DUNHAM Rep #: [id number] : 1950 Provider: SHAMAR gayle Age/Sex: 74/F [place] [facility] [place] Status: Signed Intake Vital Signs 12/09/24 11:02 Height 5 ft 5 in Intake Visit Reasons: 1 M FU Allergies Iodinated Contrast Media (Iodinated Contrast Media - IV Dye) Allergy (Verified 01/23/25 08:06) Itching rosuvastatin Adverse Reaction (Verified 01/23/25 08:06) Myalgia Medications ???Medication ???Instructions ???Recorded ???Confirmed ???Type gabapentin 300 mg capsule 300 mg PO QHS 11/21/22 01/23/25 Hi story calcium-magnesium 750 mg-465 mg 1 tab PO DAILY 12/08/24 01/23/25 H istory tablet magnesium carb,citrate,oxide 100 mg PO DAILY 12/08/24 01/23/25 History (Magnesium Complex) ezetimibe 10 mg tablet (Zetia) 10 mg PO QDAY #30 tabs 12/20/24 Rx diltiazem HCl 30 mg tablet 30 mg PO BID #60 tabs 01/03/2505/09 Rx (Cardizem) esomeprazole magnesium 40 mg 40 mg PO BID #60 caps 01/23/2505/09 Rx capsule,delayed release famotidine 20 mg tablet 20 mg PO QHS #90 tabs 01/23/2505/09 Rx Have you fallen in the past year?: No PFSH Medical History (Updated 01/23/25 @ 09:47 by SHAMAR Ba) Tinnitus Wears glasses Cancer High cholesterol History of hiatal hernia CPAP (continuous positive airway pressure) dependence Non-smoker Leg cramps History of echocardiogram History of stress test Cardiology follow-up encounter Thyroid nodule Hyperlipidemia Hypothyroidism GERD (gastroesophageal reflux disease) Osteopenia Osteoarthritis Neuropathy Carpal tunnel syndrome Cataracts, bilateral Breast cancer Arthritis Seasonal allergies Surgical History History of right knee joint replacement History of tonsillectomy History of surgery on right wrist History of bilateral carpal tunnel release History of foot surgery History of shoulder surgery H/O bilateral mastectomy History of hysterectomy Family History Mother Breast cancer Father Myocardial infarction, Onset Age: 42 Heart disease Hypertension High cholesterol Grandmother CVA (cerebral vascular accident) Sister Breast cancer Aunt Breast cancer Social History Smoking Status: Never smoker alcohol intake: current alcohol intake frequency: a few times a week substance use type: does not use caffeine: Yes Type: coffee Number of servings: 6 what type of physical activity do you participate in: none HPI HPI Details: TARIK DUNHAM, is a 74 F who presents to the office today for FU. 6.2.25 OV establishment with I regarding concerns for difficulty swallowing. She states that she's been having swallowing trouble for over 20yrs. She had "every swallowing test known to man 6 years ago and they couldn't find anything specific." She states that she took herself off of pantoprazole as she "didn't notice a difference while on it." She reports that she has a globus sensation at the top of her throat but the food "gets stuck" at the lower esophagus. She reports the most recent episode was with a bite of hamburger. She does remember exactly how long it was stuck, but "it felt like forever." She was unable to get liquids down past the food bolus. She reports that it did eventually pass on its own. She reports a frequent cough, throat clearing, increased sinus drainage, heartburn, and abdominal bloating. She denies food allergies and sensitivities, denies having asthma. She denies difficulty chewing, nausea, emesis, reflux, constipation, diarrhea, hematochezia, and melena. 12.09.24 EGD - LA Grade B reflux esophagitis with no bleeding. Biopsied. - Abnormal esophageal motility. - Moderate Schatzki ring. Dilated. - Medium-sized hiatal hernia. - No gross lesions in the second portion of the duodenum. 12.29.24 MBS Diagnosis: Esophageal dysphagia R13.14; Mild pharyngeal dysphagia R13.13. Diet: Regular Textures and Thin Liquids. Compensatory Strategies: Small Bites, Small Sips, Slow Rate (Bites/sips one at a time), Alternate bites/solids and sips/liquids (1:1 ratio) and Sitting upright (60 min after po intake). Consult ST. 01.03.25 OV She reports that she was not able to tolerate the esophageal manometry enough to complete testing. She continues to take omeprazole twice daily and famotidine at bedtime. She reports no heartburn or reflux, but continues to have habitual throat clearing and mild hoarseness. We reviewed the EGD findings and pathology report. She expresses fears of esophageal cancer due to her own history of br (more content not included)... [facility] Gastroenterology Visit Repor ton 01-03-2025 Gastroenterology Visit Report [facility] [address] [place] [address] OFFICE VISIT Date of Service: 01/03/25 MR#: [id number] Acct: [id number] Name: ASHLEYAVATARIK JAGDISH Rep #: [id number] : 1950 Provider: SHAMAR gayle Age/Sex: 74/F Location[place] [facility] [place] Status: Signed Intake Vital Signs 12/09/24 11:02 Height 5 ft 5 in Intake Visit Reasons: Test Result Allergies Iodinated Contrast Media (Iodinated Contrast Media - IV Dye) Allergy (Verified 01/03/25 13:13) Itching rosuvastatin Adverse Reaction (Verified 01/03/25 13:13) Myalgia Medications ???Medication ???Instructions ???Recorded ???Confirmed ???Type calcium 500 mg (as 1 tab PO DAILY 09/22/22 01/03/25 H istory carbonate)-vitamin D3 3.125 mcg (125 unit) tablet gabapentin 300 mg capsule 300 mg PO QHS 11/21/22 01/03/25 Hi story calcium-magnesium 750 mg-465 mg 1 tab PO DAILY 12/08/24 01/03/25 H istory tablet magnesium carb,citrate,oxide 100 mg PO DAILY 12/08/24 01/03/25 History (Magnesium Complex) ezetimibe 10 mg tablet (Zetia) 10 mg PO QDAY #30 tabs 12/20/24 Rx diltiazem HCl 30 mg tablet 30 mg PO BID #60 tabs 01/03/25 Rx (Cardizem) famotidine 20 mg tablet 20 mg PO QHS #30 tabs 01/03/25 Rx rabeprazole 20 mg tablet,delayed 20 mg PO BID #60 tabs 01/03/25 Rx release Have you fallen in the past year?: No PFSH Medical History Tinnitus Wears glasses Cancer High cholesterol History of hiatal hernia CPAP (continuous positive airway pressure) dependence Non-smoker Leg cramps History of echocardiogram History of stress test Cardiology follow-up encounter Thyroid nodule Hyperlipidemia Hypothyroidism GERD (gastroesophageal reflux disease) Osteopenia Osteoarthritis Neuropathy Carpal tunnel syndrome Cataracts, bilateral Breast cancer Arthritis Seasonal allergies Surgical History History of right knee joint replacement History of tonsillectomy History of surgery on right wrist History of bilateral carpal tunnel release History of foot surgery History of shoulder surgery H/O bilateral mastectomy History of hysterectomy Family History Mother Breast cancer Father Myocardial infarction, Onset Age: 42 Heart disease Hypertension High cholesterol Grandmother CVA (cerebral vascular accident) Sister Breast cancer Aunt Breast cancer Social History Smoking Status: Never smoker alcohol intake: current alcohol intake frequency: a few times a week substance use type: does not use caffeine: Yes Type: coffee Number of servings: 6 what type of physical activity do you participate in: none HPI HPI Details: TARIK DUNHAM, is a 74 F who presents to the office today for FU. 6 OV establishment with [facility] regarding concerns for difficulty swallowing. She states that she's been having swallowing trouble for over 20yrs. She had "every swallowing test known to man 6 years ago and they couldn't find anything specific." She states that she took herself off of pantoprazole as she "didn't notice a difference while on it." She reports that she has a globus sensation at the top of her throat but the food "gets stuck" at the lower esophagus. She reports the most recent episode was with a bite of hamburger. She does remember exactly how long it was stuck, but "it felt like forever." She was unable to get liquids down past the food bolus. She reports that it did eventually pass on its own. She reports a frequent cough, throat clearing, increased sinus drainage, heartburn, and abdominal bloating. She denies food allergies and sensitivities, denies having asthma. She denies difficulty chewing, nausea, emesis, reflux, constipation, diarrhea, hematochezia, and melena. 12.09.24 EGD - LA Grade B reflux esophagitis with no bleeding. Biopsied. - Abnormal esophageal motility. - Moderate Schatzki ring. Dilated. - Medium-sized hiatal hernia. - No gross lesions in the second portion of the duodenum. 12.29.24 MBS Diagnosis: Esophageal dysphagia R13.14; Mild pharyngeal dysphagia R13.13. Diet: Regular Textures and Thin Liquids. Compensatory Strategies: Small Bites, Small Sips, Slow Rate (Bites/sips one at a time), Alternate bites/solids and sips/liquids (1:1 ratio) and Sitting upright (60 min after po intake). Consult ST. 7.. OV She reports that she was not able to tolerate the esophageal manometry enough to complete testing. She continues to take omeprazole twice daily and famotidine at bedtime. She reports no heartburn or reflux, but continues to have habitual throat clearing and mild hoarseness. We revi (more content not included)... [facility] Modified Barium Swallow Stud yon 12-29-2024 Modified Barium Swallow Study [facility] [address] [place] [address] Modified Barium Swallow Study MR#: [id number] Acct: [id number] Name: TARIK DUNHAM Rep #: [id number] : 1950 74 From: Sherrell Black M.A., [facility] [employer] Modified Barium Swallow Patient Information Study Date: 12/29/24 Study Time: 13:00 Direct Billable Minutes: 78 Total Minutes procedure reportin Diagnosis: Dysphagia R13.10 Referring Physician: Le Harris Reason for Referral: Assess swallow function, assess risk for aspiration, and determine recommendations for least restrictive diet textures and compensatory strategies to improve safety of swallow. Medical History: Pt was referred from GI for swallowing difficulty characterized by food and drink feeling caught in her lower esophagus, including painful episode 1 month ago w/ hamburger. Liquid wash does not typically help, but waiting and relaxing will help foods to clear. She reports sometimes coughing due to sensation of food being caught chest-level in her esophagus. She denies sensation of food/drink going down the wrong way. No hx of PNA. Her swallowing difficulty occurs daily. EGD 12/09/2024 ?- LA Grade B reflux esophagitis with no bleeding. Biopsied. - Abnormal esophageal motility. - Moderate Schatzki ring. Dilated. - Medium-sized hiatal hernia. - No gross lesions in the second portion of the duodenum.??? Pt reports biopsies revealed Kolb???s esophagus. Current Diet Ordered: Regular textures / Thin liquids Dentition: Natural Teeth Mental Status: WNL Respiratory Status: Oxygenating on Room Air Penetration-Aspiration Scale Penetration-Aspiration Scale: OBJECTIVE ASSESSMENT OF SWALLOW FUNCTION (QUANTITATIVE ??? PER TRIAL): PENETRATION / ASPIRATION SCALE (WREN): 1 = does not enter airway 2 = enters airway/above vocal folds/ejected 3 = enters airway/above vocal folds/not ejected 4 = enters airway/contacts vocal folds/ejected 5 = enters airway/contacts vocal folds/not ejected 6 = enters airway/below vocal folds/ejected 7 = enters airway/below vocal folds/not ejected despite effort 8 = enters airway/below vocal folds/no effort VIDEOFLOROSCOPIC SCALE SCORE (WREN): Grade I = aspiration of material that has penetrated into the laryngeal vestibule, intact cough reflex Grade II = aspiration < 10 % of the bolus, intact cough reflex Grade III = aspiration of < 10 % of the bolus, reduced cough reflex or aspiration of > 10 % of the bolus, intact cough reflex Grade IV = aspiration of > 10 % of the bolus, reduced cough reflex Penetration-Aspiration Scale Score Thin Liquid via teaspoon: Result: 1= does not enter airway Thin Liquid via teaspoon Trial 2: Result: 1= does not enter airway Thin Liquid via small single sip: cup: Result: 1= does not enter airway Thin Liquid via sequential sips: cup: Result: 1= does not enter airway Comment: Esophageal screen - Retention in the middle and lower esophagus w/ retrograde flow. Pudding via teaspoon: Result: 1= does not enter airway Comment: Esophageal screen - Retention in the lower esophagus w/ retrograde flow to the middle esophagus. 1/2 Cookie: Result: 1= does not enter airway Comment: Esophageal screen - Retention in the lower esophagus. Thin Liquid via single sip: straw: Result: 1= does not enter airway Comment: Esophageal screen - Liquid wash mostly cleared barium through the LES. Barium Tablet - Water: Result: 1= does not enter airway Comment: Esophageal screen - Complete clearance. Oral Phase Labial Seal: No Labial Escape Tongue Control During Bolus Hold: Posterior escape of less than half of bolus Bolus Preparation/Mastication: Timely and efficient chewing and mashing Bolus Transport/Lingual Motion: Brisk tongue motion Oral Residue: Residue collection on oral structures Pharyngeal Phase Initiation of Pharyngeal Swallow: Bolus head in pyriforms Soft Palate Elevation: Trace column of contrast/air between soft palate and pharyngeal wall Laryngeal Elevation: Comp. Superior move thyroid cart w/comp. apprx arytenoid cart-epig pet Anterior Hyoid Excursion: Partial anterior movement Epiglottic Movement: Complete inversion Laryngeal Vestibule Closure at Height of Swallow: Complete; no air/contrast in laryngeal vestibule Pharyngeal Stripping Wave: Present - diminished Pharyngoesophageal Segment Opening: Complete distension and complete duration; no obstruction of flow Tongue Base Retraction: Narrow column of contrast between tongue base post. pharyngeal wall Pharyngeal Residue: Collection of residue within or on pharyngeal structures Esophageal Phase Esophageal Clearance: Esophageal retention w/ retrograde flow below pharyngoesophageal seg. Diagnosis/Impression Diagnosis: Esophageal dysphagia R13.14; Mild pharyngeal dysphagia R13.13 Impression: The oral phase is grossly WNL. Posterior loss of <1/2 of large thin liquids to the p (more content not included)... Normal [facility] PT D/C Summary (1)on 025 PT D/C Summary (1) [facility] Physical Therapy [facility] [address] [place] [address] / REHABILITATION SERVICES DISCHARGE SUMMARY MR#: [id number] Acct: [id number] Name: TARIK DUNHAM Rep #: [id number] : 1950 74 From: Anel Blanco MPT Referring Dr.: Dr. Garo Steele MD Status: REG RCR Insurance: [employer] MEDICARE PPO SELF PAY INSURANCE Discharge Summary D/C summary: It has been my pleasure to treat TARIK DUNHAM referred by Dr. Garo Steele MD, with the diagnosis of Unilateral L hip OA for a total of 8 visit(s). Discharge Date: 12/12/24 Please see the following information for a summary of their discharge status. Subjective Subjective: Pt thinks that some of her leg pain is coming from the DDD in her hip. She is just not sure. She has not gotten stronger and she still gets the catches when she turns the wrong way. I hurt all over. Will make an appt with her DrHarriet Sandoval L hip pain: Pain Intensity (Out of 10): 5 Overall Improvement % Improvement: 0 Objective Objective/Function: Pt walks with decrease stance time on the L LE and increase veering at times. Goals Goal 1:: I HEP Goal 2:: BE ABLE TO GET UP FROM THE FLOOR WITH USING HER LEGS ONLY TO GET UP Goal Progress: Not Progressing Goal 3:: Decrease L hip overall pain Goal Progress: Not Progressing Goal 4:: Increase balance (FGA at eval was 19) (worse with horizontal head turns, walking BW, walking with EC) Goal Progress: Not Progressing Plan Plan: 2X/ week for 6 weeks for neutral spine core stability, LE strength (to be able to go up steps easier and get self off the ground easier), Hip flexor stretching, functional transfers, with HEP and indep gym routine. HEP: bridges and supine off the side Ashwin stretch D/C Information Discharge Comments: DC PT back to Dr rashid sentence: If there are questions or concerns regarding this patient's physical therapy, please feel free to call me at [phone]. Thank you for the referral of this patient. Sincerely, Anel Blanco, WATSON Balance/Gait/Functional tests Balance/Special Test Scores Functional Gait Assessment Score: 19 % Disability: 36.6700 Lower Extremity Functional Score: 36 Improvement % Improvement: 0 12/12/24 1052 CC: Dr. Garo Steele MD Signed Normal [facility] EGD Reporton 12-09-2024 EGD Report [facility] Medical Records Department [address] [place] [address] EGD Report MR#: [id number] Acct: [id number] Name: TARIK DUNHAM Rep #: [id number] : 1950 74 From: Gomez Reynoso DO PCP: Dr. Garo Steele MD Status:[facility] Patient Name: Tarik Dunham Procedure Date: 12/09/2024 11:41 AM Date of : 1950 Age: 74 Procedure: Upper GI endoscopy Indications: Dysphagia, Heartburn Providers: Gomez Reynoso DO Referring MD: Garo Steele Medicines: Monitored Anesthesia Care Patient Profile: This is a 74 year old female. Refer to note in patient chart for documentation of history and physical. Patient has symptoms of dysphagia with solids, acute heartburn and chronic heartburn. Complications: No immediate complications. Procedure: Pre-Anesthesia Assessment: - Prior to the procedure, a History and Physical was performed, and patient medications and allergies were reviewed. The patient is competent. The risks and benefits of the procedure and the sedation options and risks were discussed with the patient. All questions were answered and informed consent was obtained. Patient identification and proposed procedure were verified by the physician in the pre-procedure area. Mental Status Examination: alert and oriented. Airway Examination: normal oropharyngeal airway and neck mobility. Respiratory Examination: clear to auscultation. CV Examination: normal. Prophylactic Antibiotics: The patient does not require prophylactic antibiotics. Prior Anticoagulants: The patient has taken no anticoagulant or antiplatelet agents except for NSAID medication. ASA Grade Assessment: II - A patient with mild systemic disease. After reviewing the risks and benefits, the patient was deemed in satisfactory condition to undergo the procedure. The anesthesia plan was to use monitored anesthesia care (MAC). Immediately prior to administration of medications, the patient was re-assessed for adequacy to receive sedatives. The heart rate, respiratory rate, oxygen saturations, blood pressure, adequacy of pulmonary ventilation, and response to care were monitored throughout the procedure. The physical status of the patient was re-assessed after the procedure. After obtaining informed consent, the endoscope was passed under direct vision. Throughout the procedure, the patient's blood pressure, pulse, and oxygen saturations were monitored continuously. The gastroscope was introduced through the mouth, and advanced to the second part of duodenum. The upper GI endoscopy was accomplished without difficulty. The patient tolerated the procedure well. Scope In: 11:58:50 AM Scope Out: 12:05:47 PM Total Procedure Duration Time 0 hours 6 minutes 57 seconds Findings: LA Grade B (one or more mucosal breaks greater than 5 mm, not extending between the tops of two mucosal folds) esophagitis with no bleeding was found 36 to 40 cm from the incisors. Biopsies were taken with a cold forceps for histology. Verification of patient identification for the specimen was done. Estimated blood loss was minimal. Abnormal motility was noted in the esophagus. The cricopharyngeus was abnormal. There are extra peristaltic waves in the esophageal body. The distal esophagus/lower esophageal sphincter is spastic, but gives up passage to the endoscope. Tertiary peristaltic waves are noted. A moderate Schatzki ring was found at the gastroesophageal junction. A guidewire was placed and the scope was withdrawn. Dilation was performed with a Savary dilator with no resistance at 57 Fr. The dilation site was examined and showed moderate improvement in luminal narrowing. Estimated blood loss was minimal. A medium-sized hiatal hernia was present. No other significant abnormalities were identified in a careful examination of the stomach. No gross lesions were noted in the second portion of the duodenum. Impression: - LA Grade B reflux esophagitis with no bleeding. Biopsied. - Abnormal esophageal motility. - Moderate Schatzki ring. Dilated. - Medium-sized hiatal hernia. - No gross lesions in the second portion of the duodenum. Recommendation: - Discharge patient to home. - Resume previous diet. - Continue present medications. - Await pathology results. Procedure Code(s): --- Professional --- 96356, Esophagogastroduodenoscopy, flexible, transoral; with insertion of guide wire followed by passage of dilator(s) through esophagus over guide wire 38953, 59,51, Esophagogastroduodenoscopy, flexible, transoral; with biopsy, single or multiple CPT copyright 2021 [employer]. All rights reserved. The codes documented in this report are preliminary and upon vp software engineering review may be revised to meet current compliance requirements. Gomez Reynoso DO 12/09/2024 12:11:06 P (more content not included)... Normal [facility] MR/POSTOP.[facility] 12-09-2024 MR/POSTOP.[facility] Medical Records Department [address] [place] [address] Anesthesia Postop Eval I 12/09/241214 MR#: [id number] Acct: [id number] Name: TARIK DUNHAM Rep #: [id number] : 1950 74 From: Fátima Colin CRNA PCP: Dr. Garo Steele MD Status:REG SDC Y Race: C Location: [place] [address] Anesthesia: Postop Eval I Current Vital Signs Temperature: 98.1 F Pulse Rate: 79 Blood Pressure: 100/78 Respiratory Rate: 20 Pulse Ox: 98 Assessment Airway patent: Yes Spontaneous unlabored respirations: Yes nausea: No Vomiting: No Anesthesia Complication: No Fluid Hydration Crystalloid volume administer (ml): 500 Total IV fluid infused: 500 Progress Note Anesthesia document: Postop Eval 1 completed: Yes 12/09/241214 Date Fátima Colin COMMUNITY RELATIONS ASSISTANT Jeniseigner Signature: Date CC: Signed Normal [facility] MR/[id number] 12-09-2024 MR/POSTOPAN2 [facility] Medical Records Department [address] [place] [address] Anesthesia Postop Eval II 12/09/24 1510 MR#: [id number] Acct: [id number] Name: TARIK DUNHAM Rep #: [id number] : 1950 74 From: Fátima Colin CRNA PCP: Dr. Garo Steele MD Status:[facility] Y Race: C Location: [address] Anesthesia Postop Eval I Sum Postop Eval Completion status Anesthesia document: Postop Eval 1 completed: Yes Anesthesia Postop Eval I Summary Anesthesia Postop Eval I Summary: Anesthesia Postop Eval I: Assessment Summary Airway patent Yes 12/09/24 12:15 COMMUNITY RELATIONS ASSISTANT.CSIR Spontaneous unlabored Yes 12/09/24 12:15 COMMUNITY RELATIONS ASSISTANT.CSIR respirations Mental status nausea No 12/09/24 12:15 COMMUNITY RELATIONS ASSISTANT.CSIR Vomiting No 12/09/24 12:15 COMMUNITY RELATIONS ASSISTANT.CSIR Anesthesia Postop Eval I: Fluid Summary Crystalloid volume administer 500 12/09/24 12:15 COMMUNITY RELATIONS ASSISTANT.CSIR (ml) Colloids volume administered ( ml) Blood Product volume administered (ml) Total IV fluid infused 500 12/09/24 12:15 COMMUNITY RELATIONS ASSISTANT.CSIR Anesthesia Postop Eval I: Summary Notes Anesthesia Complication No 12/09/24 12:15 COMMUNITY RELATIONS ASSISTANT.CSIR Anesthesia Complication Comment: Post-operative progress note Anesthesia: Postop Eval II Evaluation Mental status: Awake Pain Level: 0 nausea: No Vomiting: No 12/09/24 1510 Date Fátimamarquis Colin HOWARD Izquierdo Signature: Date CC: Signed Normal [facility] Surgery Specimen Level [place] 12-09-2024 Surgery Specimen Level IV ----- Patient Age/Sex Location Account Attending Physician ----- TARIK DUNHAM 74/F EN [id number] Gomez Reynoso DO ----- Specimen: [id number] Received: 12/09/24-1248 Status: SHEREE Arenas Num: [id number] Spec Type: EGD BIOPSY Carla Dr: Gomez Reynoso, DO HEADER OPERATION: EGD with biopsy, dilation PRE-OP DIAGNOSIS: Dysphagia TISSUE SUBMITTED: A- Distal esophagus biopsy ----- MICROSCOPIC DIAGNOSIS A. Esophagus, distal, biopsy: - Squamous mucosa with mild reactive change. - Columnar mucosa with goblet cell metaplasia - see note. - Negative for dysplasia. Note: The diagnosis depends on the location of the biopsy and the extent of the mucosal irregularity. If the biopsy originates from the tubular esophagus and the mucosal irregularity extends at least 1 cm above the top of the gastric folds, this represents Kolb mucosa. If the biopsy originates from the gastric cardia and/or the mucosal irregularity is less than 1 cm in extent, this represents intestinal metaplasia. MICROSCOPIC DESCRIPTION Slides are reviewed. GROSS DESCRIPTION A. Received in fixative is one container labeled with the patient's name and designated Distal esophagus biopsy. The specimen consists of multiple irregular fragments of light solomon soft tissue that in aggregate measure <0.1 to 0.7 cm. The specimen is totally submitted in one cassette. GAHarriet 12/09/2024 [facility]:[id number] ----- ADDENDUM Addendum 1 Entered: 01/30/25 This addendum is added to incorporate an outside pathology consultation report. - A1 The case was examined at [facility] and the following diagnosis was rendered. ----- Patient Age/Sex Location Account Attending Physician ----- TARIK DUNHAM 74/F EN [id number] Gomez Reynoso DO ----- ADDENDUM (Continued) Tissue Cypher Risk Class and Risk Score: Risk Class: LOW Risk Score: 5.3 5-year probability of progression: 6% Please see complete above mentioned consultation report in EMR Addendum Signed (signature on file) Dr. Naina Degroot MD 01/31/25 0859 ----- ----- Patient Age/Sex Location Account Attending Physician ----- TARIK DUNHAM 74/F EN [id number] Gomezjeff Reynoso DO ----- Signed (signature on file) Dr. Naina Degroot MD 12/23/24 0957 ----- [facility] Comment on above: Performed By: #### P SUIV ####[facility] [address] [place], [address] MR/PAT.ANEon 12-08-2024 MR/PAT.[facility] Medical Records Department [address] [place] [address] PAT - Anesthesia 12/08/24 1244 MR#: [id number] Acct: [id number] Name: TARIK DUNHAM Rep #: [id number] : 1950 74 From: Aaron Malone MD PCP: Dr. 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 When Was Last Pacemaker Check QUESTION #4 FULL TEXT: You/Your Family Experience fever (hyperthermia) with Anesthesia Last Oral Intake Last Oral intake: Last Oral Intake NPO since Meds taken in AM with sips of water? Meds patient instructed to take am of surgery PONV PONV - electronic controls repairer supervisor: PONV - electronic controls repairer supervisor Female Yes 12/08/24 09:04 HX of Motion Sickness No 12/08/24 09:04 HX of N/V After Surgery No 12/08/24 09:04 Non-Smoker Yes 12/08/24 09:04 Duration of Surgery greater No 12/08/24 09:04 than 60 minutes Number of Risk Factors 2 12/08/24 09:04 PONV Score Moderate Risk 12/08/24 09:04 Height Weight Height Weight: Anesthesia: Height Weight Height 5 ft 5 in 11/14/24 09:18 Respiratory Assessment Respiratory Assessment - electronic controls repairer supervisor: Respiratory Tract Infection Hx - electronic controls repairer supervisor Hx Respiratory Tract Infection No 12/08/24 09:04 STOP Sleep Apnea STOP Sleep Apnea - electronic controls repairer supervisor: STOP Sleep Apnea - electronic controls repairer supervisor Hx Hypertension No 12/08/24 09:04 Hx Sleep Apnea Yes 12/08/24 09:04 CPAP Yes 12/08/24 09:04 BIPAP No 12/08/24 09:04 Do you snore loudly (louder than talking or can be heard Do you often feel tired/ fatigued/ sleepy during daytime? Has anyone observed you stop breathing during sleep? STOP Results Positive 12/08/24 09:04 QUESTION #5 FULL TEXT : Do you snore loudly (louder than talking or can be heard through closed doors)? 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 - electronic controls repairer supervisor: Tobacco Use History - electronic controls repairer supervisor Tobacco Use Smoking Status Never smoker 12/08/24 09:04 Hx Tobacco Use No 12/08/24 09:04 Years Smoking Packs Smoked per Day Smoking Cessation Date was within the last 15 years Hx Smoking Cessation Date Hx Smoking Cessation Counseling Hematologic Medial History Hematologic Hx - electronic controls repairer supervisor: Hematologic Medical Hx - teaseler Hx of Blood Transfusion No 12/08/24 09:04 Hx of Transfusion in last 3 No 12/08/24 09:04 Months Date of Last Transfusion (if within last 3 months) Ever experience any problems No 12/08/24 09:04 with transfusion(s)? Specify any problems Hx of Preganancy in last 3 N/A 12/08/24 09:04 Months Nurse Filling Out Transfusion NBUCHER 12/08/24 09:04 Questions: Date: 12/08/24 12/08/24 09:04 Time: 09:12/08/24 09:04 Patient unable to answer at this time (ie. 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 Hx Now No 12/08/24 09:04 Gestational Age (in weeks): EDC: Hx Hx Para Hx Section SAB No 12/08/24 09:04 [facility] Medical History (Updated 12/08/24 @ 09:12 by Danielle Mixon) Tinnitus Wears glasses Cancer High cholesterol History of hiatal hernia CPAP (continuous positive airway pressure) dependence Non-smoker Leg cramps History of echocardiogram History of stress test Cardiology follow-up encounter Thyroid nodule Hyperlipidemia Hypothyroidism GERD (gastroesophageal reflux disease) Osteopenia Osteoarthritis Neuropathy Carpal tunnel syndrome Cataracts, bilateral Breast cancer Arthritis Seasonal allergies Home Medications ???Medication ???Instructions ???Recorded ???Last Taken ???Type calcium 500 mg (as 1 tab PO DAILY 09/22/22 Unknown Hi story carbonate)-vitamin D3 3.125 mcg (125 unit) tablet gabapentin 300 mg capsule 300 mg PO QHS 11/21/22 Unknown His tory famotidine 20 mg tablet 20 mg PO QHS #30 tabs 11/14/24 Unk nown Rx omeprazole 20 mg capsule,delayed 20 mg PO BID #60 caps 11/14/24 Unk nown Rx release rosuvastatin 5 mg tablet 5 mg (more content not included)... Normal [facility] Cardiology Visit Reporton Cardiology Visit Report [facility] [address] [place], [place] [address] OFFICE VISIT Date of Service: 11/14/24 MR#: [id number] Acct: [id number] Name: TARIK DUNHAM Rep #: [id number] : 1950 Provider: SHAMAR orellana Age/Sex: 74/F Location: [facility] Status: Signed HPI HPI History of Present Illness Details: This is 74-year-old lady who presents to the office today for a cardiovascular follow up visit. She has no previous cardiac history who wants to establish cardiac care. She does have a family history of coronary disease with a father developing myocardial infarction at age for 42, hypertension and hyperlipidemia. She remains quite active otherwise. She says that she is relocating here from [place]. She does spend the conroy in [place]. From a cardiac standpoint, the patient is doing well. She denies any palpitations, chest pain, pressure or heaviness. She denies SOB, Orthopnea, and PND. She does not have bleeding issues; no blood in urine, stool, or nosebleeds. She denies any decrease in energy level, myalgias, or claudication. She does not have edema, or sudden weight gain. She does have occasional lightheadedness with quick positional changes. She denies dizziness, syncopal or near syncopal episodes, and headaches. Intake Vital Signs 10/28/23 09:54 04/12/24 11:52 11/14/24 06:35 Height 5 ft 5 in 5 ft 5 in 5 ft 5 in Weight: 148 lb BMI 24.6 BP 102/66 Blood Pressure Location Lt brachial Position Sitting Respiration 18 Pulse 68 Pulse Source Monitor Pulse Oximetry (%) 98 Intake Visit Reasons: 1 Y FU Marketing Support Coordinator Required: No Is patient in pain?: No Allergies Iodinated Contrast Media (Iodinated Contrast Media - IV Dye) Allergy (Verified 11/14/24 08:21) Itching Medications ???Medication ???Instructions ???Recorded ???Confirmed ???Type magnesium 200 mg tablet 200 mg PO DAILY 11/12/21 11/14/24 History calcium 500 mg (as 1 tab PO DAILY 09/22/22 11/14/24 H istory carbonate)-vitamin D3 3.125 mcg (125 unit) tablet gabapentin 300 mg capsule 300 mg PO BID 11/21/22 11/14/24 Hi story Ejection fraction %: 60 Have you fallen in the past year?: No PFSH Medical History (Reviewed 11/14/24 @ 08:21 by Dangelo Cevallos SENIOR MANAGER [facility], SENIOR MANAGER [facility]-C) Thyroid nodule Hyperlipidemia Hypothyroidism GERD (gastroesophageal reflux disease) Osteopenia Osteoarthritis Neuropathy Carpal tunnel syndrome Cataracts, bilateral Breast cancer Arthritis Seasonal allergies Surgical History History of right knee joint replacement History of tonsillectomy History of surgery on right wrist History of bilateral carpal tunnel release History of foot surgery History of shoulder surgery H/O bilateral mastectomy History of hysterectomy Family History Mother Breast cancer Father Myocardial infarction, Onset Age: 42 Heart disease Hypertension High cholesterol Grandmother CVA (cerebral vascular accident) Sister Breast cancer Aunt Breast cancer Social History Smoking Status: Never smoker alcohol intake: current alcohol intake frequency: a few times a week substance use type: does not use caffeine: Yes Type: coffee Number of servings: 6 what type of physical activity do you participate in: none ROS Const Const: Negative for fatigue, weakness, headache(s) or frequent falls Eyes Eyes: Negative for blurry vision ENT ENT: Negative for headache(s), dizziness or Nosebleed/epistaxis Cardio Chest Pain: No Palpitations: No Edema: None Muscle aches with walking: None Resp Respiratory: Negative for SOB with activity, SOB at rest or SOB orthopnea SOB lying down GI GI: Positive for heartburn; Negative nausea, vomiting, bright, red blood in stools or black,tarry stools : Negative for hematuria Neuro Neuro: Positive for lightheadedness (occasional with quick positional changes); Negative for dizziness, near syncope, syncope, frequent falls, headache(s), weakness or blurry vision Endo Endo: Negative for fatigue Cardiology Exam Const Appearance: cooperative, healthy appearing, no acute distress, well developed and well groomed Nutritional Appearance: average body habitus and well nourished Orientation: alert, awake and oriented x3 Head Head: normal to inspection, normocephalic and atraumatic Ears: hearing grossly normal bilaterally and external ears normal Nose: external nose normal and nares normal Face and Sinus: face symmetric Eyes General: appearance normal, both eyes and all related structures Eyelids: eyelids normal Conjunctivae: conjunctivae normal Pupils: PERRL, normal by confrontation and accommoda (more content not included)... Normal [facility] Gastroenterology Visit Repor ton 11-14-2024 Gastroenterology Visit Report [facility] [address] [place] [address] OFFICE VISIT Date of Service: 11/14/24 MR#: [id number] Acct: [id number] Name: TARIK DUNHAM Rep #: [id number] : 1950 Provider: SHAMAR gayle Age/Sex: 74/F Location[place] [facility] Status: Signed Intake Vital Signs 04/12/24 11:52 11/14/24 06:35 11/14/24 09:18 Height 5 ft 5 in 5 ft 5 in 5 ft 5 in Weight: 148 lb 148 lb BMI 24.6 24.6 BP 102/66 119/71 Blood Pressure Location Lt brachial Lt brachial Position Sitting Sitting Respiration 18 Pulse 68 62 Pulse Source Monitor Pulse Oximetry (%) 98 96 Oxygen Delivery Method room air Intake Visit Reasons: Dysphagia Allergies Iodinated Contrast Media (Iodinated Contrast Media - IV Dye) Allergy (Verified 11/14/24 09:11) Itching Medications ???Medication ???Instructions ???Recorded ???Confirmed ???Type magnesium 200 mg tablet 200 mg PO DAILY 11/12/21 11/14/24 History calcium 500 mg (as 1 tab PO DAILY 09/22/22 11/14/24 H istory carbonate)-vitamin D3 3.125 mcg (125 unit) tablet gabapentin 300 mg capsule 300 mg PO BID 11/21/22 11/14/24 Hi story famotidine 20 mg tablet 20 mg PO QHS #30 tabs 11/14/2408/09 Rx omeprazole 20 mg capsule,delayed 20 mg PO BID #60 caps 11/14/2408/09 Rx release Have you fallen in the past year?: No [facility] Medical History Thyroid nodule Hyperlipidemia Hypothyroidism GERD (gastroesophageal reflux disease) Osteopenia Osteoarthritis Neuropathy Carpal tunnel syndrome Cataracts, bilateral Breast cancer Arthritis Seasonal allergies Surgical History History of right knee joint replacement History of tonsillectomy History of surgery on right wrist History of bilateral carpal tunnel release History of foot surgery History of shoulder surgery H/O bilateral mastectomy History of hysterectomy Family History Mother Breast cancer Father Myocardial infarction, Onset Age: 40 Heart disease Hypertension High cholesterol Grandmother CVA (cerebral vascular accident) Sister Breast cancer Aunt Breast cancer Social History Smoking Status: Never smoker alcohol intake: current alcohol intake frequency: a few times a week substance use type: does not use caffeine: Yes Type: coffee Number of servings: 6 what type of physical activity do you participate in: none HPI HPI Details: TARIK DUNHAM, is a 74 F who presents to the office today for establishment with [facility] regarding concerns for difficulty swallowing. She states that she's been having swallowing trouble for over 20yrs. She had "every swallowing test known to man 6 years ago and they couldn't find anything specific." She states that she took herself off of pantoprazole as she "didn't notice a difference while on it." She reports that she has a globus sensation at the top of her throat but the food "gets stuck" at the lower esophagus. She reports the most recent episode was with a bite of hamburger. She does remember exactly how long it was stuck, but "it felt like forever." She was unable to get liquids down past the food bolus. She reports that it did eventually pass on its own. She reports a frequent cough, throat clearing, increased sinus drainage, heartburn, and abdominal bloating. She denies food allergies and sensitivities, denies having asthma. She denies difficulty chewing, nausea, emesis, reflux, constipation, diarrhea, hematochezia, and melena. ROS Const Constitutional: No chills, fatigue, fever(s) or weight change Eyes Eyes: No change in vision ENT ENT: Positive for difficulty swallowing; No abnormal hearing Resp Respiratory: Positive for cough Cardio Cardiology: No chest pain at rest, chest pain with exertion or leg pain with exertion Gastro GI: Positive for bloating, difficulty swallowing and excessive flatus; No abdominal pain, belching, change in bowel habits, change in stool character, coffee ground emesis, constipation, cramping, diarrhea, heartburn, feeling full early, incontinent of stools, Vomiting blood/hematemesis, Blood in stool, loose stools, Black,tarry stools, nausea/dyspepsia, pain with swallowing, vomiting or other Musc Musculoskeletal: Positive for joint pain, back pain, numbness, stiffness, tingling, Arthritis and sciatica; No leg pain with exertion Skin Skin: No yellowing of the eye or itchy eyes Neuro Neurology: Positive for numbness and tingling; No abnormal hearing Psych Psychiatric: No anxiety and No depression Endo Endocrine: No cold intolerance, fatigue, heat intolerance or weight change Aller/Imm Aller (more content not included)... 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 Pt. s/p R breast biopsy on 10/24/15. Dx DCIS. She underwent b/l nipple sparing mastectomy with implant reconstruction. Right sentinel LN biopsy (Neg.) on 01/09/16. No complications. She was not followed by an oncologist after surgery. Pt. has been followed by plastics for implants. Pt. was living in [place]. +family history of breast cancer: Mother in early 40's Maternal aunt I'm have never seen an oncologist. I moved back to [place]. I had my implants changed maybe three years ago." Appetite:"I'm getting over being sick." Energy level:"I think good." Denies fevers. Recent "flu" diarrhea and vomiting Resp:denies cough or sob [...] (98.1 ?F) (Oral) Ht 167.6 cm (5' 6") Wt 66.4 kg (146 lb 6.2 oz) [...] pt. - Will have records scanned into [employer]. - Continue follow up with plastics and PCP for routine care. - Follow up in one year. - Pt. aware to call office with any questions/concerns. The patient indicates understanding of these issues and agrees with the plan. 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 Baclofen2%;dkefwnehgn99%;carissa xmiexv68%;lidocaine6%. Per Altaf Metz MD (orthopedics). - gabapentin [...] Resolved Dysphagia [787.2] 12/29/2022 ESOPHAGEAL REFLUX [K21.9] Ab (more content not included)... Normal [facility] Inital Evaluation (1) - PTon 10-25-2024 Inital Evaluation (1) - PT [facility] Physical Therapy [facility] [address] [place] [address] / REHABILITATION SERVICES INITIAL EVALUATION MR#: [id number] Acct: [id number] Name: TARIK DUNHAM Rep #: [id number] : 1950 74 From: Anel CHAUDHARI Referring Dr.: Dr. Garo Steele MD Status: REG RCR Insurance: [employer] MED[employer]ARE PPO SELF PAY INSURANCE Patient's Visit Information Visit Information Visit Information: TARIK DUNHAM is a 74 year old F referred to Physical Therapy by Dr. Garo Steele MD with a diagnosis of Unilateral L hip OA. Date of Evaluation: 10/25/24 Physical Therapist: WATSON Meneses Visit Plan Frequency: 2x /Week Duration: 6 Weeks Plan: 2X/ week for 6 weeks for neutral spine core stability, LE strength (to be able to go up steps easier and get self off the ground easier), Hip flexor stretching, functional transfers, with HEP and indep gym routine HEP: bridges and supine off the side Ashwin stretch Subjective Subjective: She has L hip pain for 6-8 months. She is bone on bone. Her L hip is getting worse. She has arthritis in her B shoulders but her L is worse than the R. She is not ready to do a hip replacement and she is limited if she can get down to the floor but can not get back up. She loses her balance easy. She has not fallen. Stairs: she can do stairs up and down recip but has to be careful. If she turns the wrong way she will get a catch in her hip and pain is up her cheek and down her L lateral leg pain and groin pain. She has tingling in her R knee and foot from nerve block. She also has some back pain. She has to sleep on the L side but she has increase pain and wakes up with pain. She gets about 6 hours of sleep. She has a lift now in her L shoe but not sure it helps. Pain L hip pain: Pain Intensity (Out of 10): 5 Objective Objective: Gait: walks with decrease stance time on the L LE. small cautious steps LE MMT: R hip flex 9.8 and L 8.3 R knee ext 26.1 and L 14.1 R knee flex 12.8 and L 9,4 R hip abd 9.2 and L 13.3 Bridges: full bridge with no pain FGA: 19 (worse with horizontal head turns with increased veering) Stairs: Going up the steps she struggled with strength and stiffness descending steps (used a hand railing) SLR on the R increased L sided back pain. Good overall HS length Tight R hip flexor and tight on the L too but had increase pain in the groin Balance/Special Test Scores Functional Gait Assessment Score: 19 % Disability: 36.6700 Lower Extremity Functional Score: 46 Goals Goal 1:: I HEP Goal Time Frame: 6-8 Weeks Goal 2:: BE ABLE TO GET UP FROM THE FLOOR WITH USING HER LEGS ONLY TO GET UP Goal Time Frame: 6-8 Weeks Goal 3:: Decrease L hip overall pain Goal Time Frame: 6-8 Weeks Goal 4:: Increase balance (FGA at eval was 19) (worse with horizontal head turns, walking BW, walking with EC) Goal Time Frame: 6-8 Weeks Rehabilitation Potential Rehabilitation Potential: Good Anticipated Interventions Patient/Client Instruction: Educate patient on: Condition and Plan of Care For the Purpose of:: To decrease pain, To increase ROM, To improve nutrient delivery to tissue, To increase oxygenation perfusion, To improve muscle performance and motor function, To improve ability to perform ADL's, To increase tolerance to activity/condition/position, To improve performance and independence with ADL's, To decrease level of supervision to perform tasks, To improve ability of physical actions for home/community/work/leisure, To improve gait and locomotor functions, To improve health of tissue, To decrease soft tissue restriction, To increase flexibility/ROM, To improve balance and To improve safety with gait Therapeutic Exercise to Include: Strength training, Endurance training, Balance training, Coordination, Body mechanics, Postural training, Flexibilty training, Gait and locomotor training, Neuromotor development, Active ROM and Dynamic Lumbar Stabilization For the Purpose of:: To decrease pain, To increase ROM, To improve nutrient delivery to tissue, To increase oxygenation perfusion, To improve muscle performance and motor function, To improve ability to perform ADL's, To increase tolerance to activity/condition/position, To improve performance and independence with ADL's, To decrease level of supervision to perform tasks, To improve ability of physical actions for home/community/work/leisure, To improve gait and locomotor functions, To improve health of tissue, To decrease soft tissue restriction, To increase flexibility/ROM, To improve endurance, To improve balance and To improve safety with gait Functional Training to Include: Gait training For the Purpose of:: To improve gait and locomotor functions and To improve safety with gait Text: Thank you for the opportunity to evaluate your patient. For Me (more content not included)... [facility] 10-18-2024 [facility] Telephone (INTMWS) TARIK DUNHAM ([id number]) 1950 F Date Time Provider Department 10/18/24 GARO STEELE INTWS During your visit today, we recorded the following information about you: Juani German RN 10/18/2024 12:52 PM Signed Patient calls to request results of recent x-ray. Notified still in process. Patient also asking if she could have an order for PT at [facility] for left hip pain. Patient also asking about further blood work d/t having bilateral breast cancer 5 years ago. She reports that when in [place] she followed with oncology and wandering if [...] of left shoulder. She should see her disaster recovery specialist in [facility], Dr. Metz. 2) Referral to PT at [facility] ordered for left hip osteoarthritis. 3) Offer referral to oncology for breast cancer follow up. ASSESSMENT/PLAN: 1. Unilateral primary osteoarthritis, left hip - ICD9: 715.15, ICD10: M16.12 - CONSULT TO PHYSICAL THERAPY MD Geronimo Diehl Beth, LPN 10/20/2024 9:32 AM Signed Phoned patient and left message to return call and ask to speak to a nurse for results. Azucena Barahona RN 10/20/2024 10:14 AM Signed Pt called and is notified of providers results and instructions. Pt voices understanding. I let Pt know PT should be calling her once they receive the orders. Please place the orders for referral to oncology for breast cancer follow up and call to schedule once they are in. Faxed Pt orders to [facility] at fax # [phone]. MAVIS Shrestha Victor H, MD 10/21/2024 3:54 AM Signed Schedule with oncology. Izabel Ambriz LPN 10/21/2024 8:34 AM Signed Offer New pt with [facility]. Not on an AI. Mamm, surg, path [...] Order(s):CONSULT TO PHYSICAL THERAPY [9032] Order #: [id number]: 1 FUTURE CONSULT TO ONCOLOGY [9023] Order #: [id number]: 1 FUTURE Prescriptions as of 10/21/2024 - celecoxib (CELEBREX) 200 mg capsule Take 1 capsule by mouth once daily as needed for pain (back pain). - baclofen powder, diclofenac sodium powder, gabapentin powder, lidocaine CARE HOME powder in cream base (CPD) Apply 1-2 g to affected area four times a day as needed. Baclofen2%;%;carissa bixgyk17%;lidocaine6%. Per Altaf Metz MD (orthopedics). - gabapentin [...] Encounter Status:Closed by SUSAN STEINER on 10/21/24 Normal [facility] CBC panel Auto (Bld)on 10-14 Erythrocyte distribution width (RBC) [Ratio] 12.5 % Normal 11.5-15.0 [facility] Comment on above: Order Comment: Speci men Type: BLOOD SPECIMENOrdering Facility: [facility] Address: [address] [place] [address] Performed By: #### 5 8410-2 ####[facility] LABIA [id number] [place] [address] [place] Hematocrit (Bld) [Volume fraction] 35.9 % Low 36.0-46.0 [facility] Comment on above: Order Comment: Speci men Type: BLOOD SPECIMENOrdering Facility: [facility] Address: [address] [place] [address] Performed By: #### 5 8410-2 ####[facility] LABIA [id number] [place] [address] [place] Hemoglobin (Bld) [Mass/Vol] 11.7 g/dL Normal 11.5-15.5 [facility] Comment on above: Order Comment: Speci men Type: BLOOD SPECIMENOrdering Facility: [facility] Address: [address] [place] [address] Performed By: #### 5 8410-2 ####[facility] LABIA [id number] [place] [address] [place] MCH (RBC) [Entitic mass] 29.9 pg Normal 26.0-34.0 [facility] Comment on above: Order Comment: Speci men Type: BLOOD SPECIMENOrdering Facility: [facility] Address: [address] [place] [address] Performed By: #### 5 8410-2 ####[facility] LABIA [id number] [place] [address] [place] MCHC (RBC) [Mass/Vol] 32.6 g/dL Normal 30.5-36.0 [facility] Comment on above: Order Comment: Speci men Type: BLOOD SPECIMENOrdering Facility: [facility] Address: [address] [place] [address] Performed By: #### 5 8410-2 ####[facility] LABIA [id number] [place] [address] [place] MCV (RBC) [Entitic vol] 91.8 fL Normal 80.0-100.0 [facility] Comment on above: Order Comment: Speci men Type: BLOOD SPECIMENOrdering Facility: [facility] Address: [address] [place] [address] Performed By: #### 5 8410-2 ####[facility] LABIA [id number] [place] [address] [place] Nucleated RBC (Bld) [#/Vol] 10*3/uL Normal <0.01 [facility] Comment on above: Order Comment: Speci men Type: BLOOD SPECIMENOrdering Facility: [facility] Address: [address] [place] [address] Performed By: #### 5 8410-2 ####[facility] LABIA [id number] [place] [address] [place] Platelet mean volume (Bld) [Entitic vol] 10.8 fL Normal 9.0-12.7 [facility] Comment on above: Order Comment: Speci men Type: BLOOD SPECIMENOrdering Facility: [facility] Address: [address] [place] [address] Performed By: #### 5 8410-2 ####[facility] LABCLIA [id number] [address] [address] [place] Platelets (Bld) [#/Vol] 287 10*3/uL Normal 150-400 [facility] Comment on above: Order Comment: Speci men Type: BLOOD SPECIMENOrdering Facility: [facility] Address: [address] [place] [address] Performed By: #### 5 8410-2 ####[facility] LABIA [id number] [place] [address] [place] RBC (Bld) [#/Vol] 3.91 10*6/uL Normal 3.90-5.20 [facility] Comment on above: Order Comment: Speci men Type: BLOOD SPECIMENOrdering Facility: [facility] Address: [address] [place] [address] Performed By: #### 5 8410-2 ####[facility] LABIA [id number] [place] [address] [place] WBC (Bld) [#/Vol] 4.89 10*3/uL Normal 3.70-11.00 [facility] Comment on above: Order Comment: Speci men Type: BLOOD SPECIMENOrdering Facility: [facility] Address: [address] [place] [address] Performed By: #### 5 8410-2 ####[facility] LABIA [id number] [place] [id number] [place] Comprehensive metabolic 2000 panelon 10-14-2024 Albumin [Mass/Vol] 4.1 g/dL Normal 3.9-4.9 [facility] Comment on above: Order Comment: Speci men Type: BLOOD SPECIMENOrdering Facility: [facility] Address: [address] [place] [address] Performed By: #### 2 4323-8, 92154-7 ####[facility] LABIA [id number] [place] [id number] [place] ALP [Catalytic activity/Vol] 58 U/L Normal 34-123 [facility] Comment on above: Order Comment: Speci men Type: BLOOD SPECIMENOrdering Facility: [facility] Address: [address] [place] [address] Performed By: #### 2 4323-8, 17508-0 ####[facility] LABCLIA [id number] [place] [address] [place] ALT [Catalytic activity/Vol] 11 U/L Normal 7-38 [facility] Comment on above: Order Comment: Speci men Type: BLOOD SPECIMENOrdering Facility: [facility] Address: [address] [place] [address] Performed By: #### 2 4323-8, 57762-1 ####[facility] LABCLIA [id number] [place] [address] [place] Anion gap [Moles/Vol] 12 mmol/L Normal 8-15 [facility] Comment on above: Order Comment: Speci men Type: BLOOD SPECIMENOrdering Facility: [facility] Address: [address] [place] [address] Performed By: #### 2 4323-8, 34503-3 ####[facility] LABCLIA [id number] [place] [address] [place] AST [Catalytic activity/Vol] 18 U/L Normal 13-35 [facility] Comment on above: Order Comment: Speci men Type: BLOOD SPECIMENOrdering Facility: [facility] Address: [address] [place], [place] [address] Performed By: #### 2 4323-8, 83597-2 ####[facility] LABCLIA [id number] [place] [id number] [place] Bilirubin [Mass/Vol] 0.5 mg/dL Normal 0.2-1.3 [facility] Comment on above: Order Comment: Speci men Type: BLOOD SPECIMENOrdering Facility: [facility] Address: [address] [place] [address] Performed By: #### 2 4323-8, 29049-8 ####[facility] LABCLIA [id number] [place] [address] [place] Calcium [Mass/Vol] 9.6 mg/dL Normal 8.5-10.2 [facility] Comment on above: Order Comment: Speci men Type: BLOOD SPECIMENOrdering Facility: [facility] Address: [address] [place] [address] Performed By: #### 2 4323-8, 30232-5 ####[facility] LABCLIA [id number] [place] [address] [place] Chloride [Moles/Vol] 104 mmol/L Normal 98-107 [facility] Comment on above: Order Comment: Speci men Type: BLOOD SPECIMENOrdering Facility: [facility] Address: [address] [place] [address] Performed By: #### 2 4323-8, 55793-1 ####[facility] LABCLIA [id number] [place] [address] [place] CO2 [Moles/Vol] 24 mmol/L Normal 22-30 [facility] Comment on above: Order Comment: Speci men Type: BLOOD SPECIMENOrdering Facility: [facility] Address: [address] [place] [address] Performed By: #### 2 4323-8, 32194-0 ####[facility] LABCLIA [id number] [place] [id number] [place] Creatinine [Mass/Vol] 0.70 mg/dL Normal 0.58-0.96 [facility] Comment on above: Order Comment: Speci men Type: BLOOD SPECIMENOrdering Facility: [facility] Address: [address] [place], [place] [address] Performed By: #### 2 4323-8, 89162-5 ####[facility] [id number] [place] [address] [place] Creatinine and Glomerular filtration rate.predicted panel (S/P/Bld) 90 mL/min/1.73m??? Normal >=60 [facility] Comment on above: Order Comment: Specsaroj camp Type: BLOOD SPECIMENOrdering Facility: [facility] Address: [address] [place] [address] Result Comment: Adia mated Glomerular Filtration Rate (eGFR) is calculated using the 2020 CKD-EPI creatinine equation. This equation utilizes serum creatinine, sex, and age as parameters. The creatinine assay has traceable calibration to isotope dilution-mass spectrometry. Refer to KDIGO guidelines for clinical interpretation. In patients with unstable renal function, e.g. those with acute kidney injury, the eGFR may not accurately reflect actual GFR. Performed By: #### 2 4323-8, 25538-7 ####[facility] [id number] [place] [address] [place] Glucose [Mass/Vol] 89 mg/dL Normal 74-99 [facility] Comment on above: Order Comment: Raheem camp Type: BLOOD SPECIMENOrdering Facility: [facility] Address: [address] [place] [address] Result Comment: The English Diabetes Association (ADA) provides guidance for cutoff [...] Standards of Medical Care in Diabetes 2016, English Diabetes Association. Diabetes Care. 2016.39(Suppl 1). Performed By: #### 2 4323-8, 39419-5 ####[facility] [id number] [place] [address] [place] Potassium [Moles/Vol] 4.6 mmol/L Normal 3.7-5.1 [facility] Comment on above: Order Comment: Speci men Type: BLOOD SPECIMENOrdering Facility: [facility] Address: [address] [place] [address] Performed By: #### 2 4323-8, 63824-2 ####[facility] LABCLIA [id number] [place] [address] [place] Protein [Mass/Vol] 6.3 g/dL Normal 6.3-8.0 [facility] Comment on above: Order Comment: Speci men Type: BLOOD SPECIMENOrdering Facility: [facility] Address: [address] [place] [address] Performed By: #### 2 4323-8, 38538-9 ####[facility] LABCLIA [id number] [place] [address] [place] Sodium [Moles/Vol] 140 mmol/L Normal 136-144 [facility] Comment on above: Order Comment: Speci men Type: BLOOD SPECIMENOrdering Facility: [facility] Address: [address] [place] [address] Performed By: #### 2 4323-8, 24700-9 ####[facility] LABCLIA [id number] [place] [address] [place] Urea nitrogen [Mass/Vol] 21 mg/dL Normal 7-21 [facility] Comment on above: Order Comment: Speci men Type: BLOOD SPECIMENOrdering Facility: [facility] Address: [address] [place] [address] Performed By: #### 2 4323-8, 09766-9 ####[facility] LABCLIA [id number] [place] [id number] [place] Lipid 1996 panelon 5 Cholesterol [Mass/Vol] 214 mg/dL High <200 [facility] Comment on above: Order Comment: Speci men Type: BLOOD SPECIMENOrdering Facility: [facility] Address: [address] [place] [address] Result Comment: <200 mg/dL, Desirable 200-239 mg/dL, Borderline high >239 mg/dL, High Performed By: #### 2 4323-8, 81214-3 ####[facility] LABCLIA [id number] [facility] [id number] [address] [place] Cholesterol in HDL [Mass/Vol] 56 mg/dL Normal >39 [facility] Comment on above: Order Comment: Speci men Type: BLOOD SPECIMENOrdering Facility: [facility] Address: [address] [place] [address] Result Comment: 40-5 9 mg/dL, Acceptable >59 mg/dL, High: Negative risk factor for coronary heart disease <40 mg/dL, Low: Positive risk factor for coronary heart disease Performed By: #### 2 4323-8, 26952-8 ####[facility] LABCLIA [id number] [facility] [address] [place] [address] [place] Cholesterol in LDL [Mass/Vol] 142 mg/dL High <100 [facility] Center Comment on above: Order Comment: Speci men Type: BLOOD SPECIMENOrdering Facility: [facility] Address: [address] [place] [address] Result Comment: <100 mg/dL, Optimal 100-129 mg/dL, Near optimal/above optimal 130-159 mg/dL, Borderline high 160-189 mg/dL, High >189 mg/dL, Very high Secondary prevention optimal LDL Cholesterol levels are recommended to be <70 mg/dL LDL cholesterol is calculated using the Diaz-NIH equation. Performed By: #### 2 4323-8, 84509-8 ####[facility] LABCLIA [id number] [facility] [id number] [address] [place] Cholesterol in LDL/Cholesterol in HDL [Mass ratio] 2.54 {ratio} High <2.54 [facility] Comment on above: Order Comment: Speci men Type: BLOOD SPECIMENOrdering Facility: [facility] Address: [address] [place] [address] Result Comment: Rosy mendez: 1. National Cholesterol Education Program ATP III Guideline At-A-Glance Quick Desk Reference: National Heart, Lung, and Blood [place]. National Institutes of Health. 2001: NIH Publication No. 01-3305. 2. An International Atherosclerosis Society position paper: global recommendations for the management of dyslipidemia: executive summary, Atherosclerosis. 2014: 232(2):410-413. Performed By: #### 2 4323-8, 06801-7 ####[facility] LABCLIA [id number] [place] [address] [place] Cholesterol in VLDL [Mass/Vol] 16 mg/dL Normal <30 [facility] Comment on above: Order Comment: Speci men Type: BLOOD SPECIMENOrdering Facility: [facility] Address: [address] [place] [address] Performed By: #### 2 4323-8, 59099-2 ####[facility] LABIA [id number] [place] [address] [place] Cholesterol non HDL [Mass/Vol] 158 mg/dL High <130 [facility] Comment on above: Order Comment: Speci men Type: BLOOD SPECIMENOrdering Facility: [facility] Address: [address] [place] [address] Result Comment: <130 mg/dL, Optimal 130-159 mg/dL, Near optimal/above optimal 160-189 mg/dL, Borderline high 190-219 mg/dL, High >219 mg/dL, Very high Secondary prevention optimal non HDL Cholesterol levels are recommended to be <100 mg/dL Performed By: #### 2 4323-8, 44583-2 ####[facility] LABCLIA [id number] [place] [id number] [place] Cholesterol.total/Ch olesterol in HDL [Mass ratio] 3.82 {ratio} Normal <5.10 [facility] Comment on above: Order Comment: Speci men Type: BLOOD SPECIMENOrdering Facility: [facility] Address: [address] [place] [address] Performed By: #### 2 4323-8, 60671-2 ####[facility] LABCLIA [id number] [place] [address] [place] FASTING TIME 12 hrs Normal [facility] Comment on above: Order Comment: Speci men Type: BLOOD SPECIMENOrdering Facility: [facility] Address: [address] [place] [address] Performed By: #### 2 4323-8, 18647-4 ####[facility] LABCLIA [id number] [place] [address] [place] Triglyceride [Mass/Vol] 91 mg/dL Normal <150 [facility] Comment on above: Order Comment: Speci men Type: BLOOD SPECIMENOrdering Facility: [facility] Address: [address] [place] [address] Result Comment: <150 mg/dL, Normal 150-199 mg/dL, Borderline high 200-499 mg/dL, High >499 mg/dL, Very high Performed By: #### 2 4323-8, 66554-0 ####[facility] LABCLIA [id number] [place] [address] [place] CNOVon 10-13-2024 CNOV Office Visit (INTMWS ) TARIK DUNHAM ([id number]) 1950 F Date Time Provider Department 10/13/24 11:20 AM GARO STEELE INTMWS During your visit today, we recorded the following information about you: Pulse Respiration Blood pressure Weight 64/minute 16/minute 102/60 66.8 kg Height 1.651 m Garo Steele MD 10/13/2024 12:54 PM Signed This note was created using Kingmaker[employer]. Subjective Patient presents with: F/U 6 months Tarik Dunham is a 74 year old female. [...] also filling a compounded cream from her disaster recovery specialist, Dr. Altaf Metz. She has osteoarthritis of the left hip as well, for which she has been hesitant to have hip replacement. She also had increasing numbness of her right hand digits 1-3. She had chest pains 5 months ago that resolved. Stress test was done at [facility] and was negative. Review of Systems [...] powder, diclofenac sodium powder, gabapentin powder, lidocaine [facility] powder in cream base (CPD) Apply 1-2 g to affected area four times a day as needed. Baclofen2%;ejnhkslrzo75%;carissa wykgcu69%;lidocaine6%. Per Altaf Metz MD (orthopedics). No current facility-administered medications for this visit. Objective BP 102/60 (BP Site: Left Arm, BP Position: Sitting, BP Cuff Size: Large Adult) Pulse 64 Resp 16 Ht 165.1 cm (5' 5") Wt 66.8 kg (147 lb 4.3 oz) [...] orthopedic evaluation. She sees Dr. Metz at [facility] in [place]. . 2. Primary osteoarthritis of right knee - ICD9: 715.16, ICD10: M17.11 S/p right total knee. - CELECOXIB 200 MG CAPSULE - COMPLETE BLOOD COUNT 3. Carpal tunnel syndrome on right - ICD9: 354.0, ICD10: G56.01 - Consider orthopedic injection. 4. Neuropathic pain, leg, right - ICD9: 355.8, ICD10: M79.2 - Stable, on long chain beamer gabapentin. 5. Hyperlipidemia, unspecified hyperlipidemia type - ICD9: 272.4, ICD10: E78.5 - Control undetermined, due for labs - She expressed hesitance to start a statin medication. - COMPREHENSIVE METABOLIC PANEL - LIPID PANEL, FASTING 6. Unilateral primary osteoarthritis, left hip - ICD9: 715.15, ICD10: M16.12 - Noted outside xray. She was hesitant to have more surgeries. Ivette Diehl (more content not included)... Normal [facility] XR SHLDR >/=3V AP/EDY AP/OTH R LTon 10-13-2024 XR SHLDR >/=3V AP/EDY AP/OTHR LT * * *Final Report* * * DATE [...] glenohumeral joint osteoarthritis. Rotator cuff calcific tendinopathy. Licensing Director: PSCB Transcribe Date/Time: Oct 19 2024 7:29A Dictated by : HAILY GALVIN MD This examination was interpreted and the report reviewed and electronically signed by: HAILY GALVIN MD on Oct 19 2024 7:30AM EST [id number] Normal [facility] XR SHLDR >/=3V AP/EDY AP/OTH R RTon 10-13-2024 XR SHLDR >/=3V AP/EDY AP/OTHR RT * * *Final Report* * * DATE [...] the 08/31/2015 exam. No acute osseous abnormality. Licensing Director: BLAIR Transcribe Date/Time: Oct 19 2024 7:31A Dictated by : HAILY GALVIN MD This examination was interpreted and the report reviewed and electronically signed by: HAILY GALVIN MD on Oct 19 2024 7:32AM EST [id number] Normal [facility] 36on 07-25-2024 36 Name of caller: Jewlel hernandez Contact phone number: [phone] Relationship to Patient: patient Provider: Isaías Practice: Ortho Chief Complaint/Reason for Call: Patient states she is having a dental cleaning tomorrow and needs an abx called in to her pharmacy on file. Please advise. Best time of day caller can be reached: Any Patient advised that office/PCP has 24-48 business hours to return their call: Yes Normal [facility] Stress Reporton 05-20-2024 Stress Report [facility] [address] [place] [address] MR#: [id number] Acct: [id number] Name: TARIK DUNHAM Rep #: [id number] : 1950 74 From: Clay Jean MD Primary Care: Dr. Garo Steele MD Status: REG CLI Referring Dr: Dangelo Cevallos SENIOR MANAGER [facility] SENIOR MANAGER [facility]-C Sex: F C Stress Test Report Exercise myocardial perfusion stress test. 74-year-old lady with a history of chest pain Stress protocol: Resting EKG demonstrates normal sinus rhythm with a rate of 73 bpm resting blood pressure is 118/80 mmHg. The patient exercised according to the regular Lefty protocol for a total duration of 6 minutes attaining a maximum heart rate of 153 bpm which was 106% of maximum predicted heart rate; the maximum workload was 7 metabolic equivalents. At rest there were no ST or T wave changes noted to suggest ischemia and at peak exercise upsloping ST changes only were noted which did not meet the criteria for ischemia. No clinical angina was noted the test was terminated due to the target heart rate being achieved/fatigue. The peak blood pressure was 138/80 mmHg. Rate-pressure product was 18,200. Myocardial perfusion protocol. 11.5 mCi of technetium 99m sestamibi was injected at rest. The patient exercised according to regular Lefty protocol for total duration of 6 minutes and at peak exercise 33.6 mCi of technetium 99m sestamibi was injected stress images were obtained stress and rest images were reconstructed in comparing the short axis vertical long and horizontal long axis. Gated images were also obtained. Perfusion SPECT analysis: Review of the stress images demonstrate normal uptake of tracer noted in all areas of the myocardium. The resting images similarly demonstrate normal uptake of tracer noted in all areas of the myocardium. No areas of reversibility are noted to suggest ischemia no previous infarct was noted. Gated SPECT analysis: The gated ejection fraction is 84%. Conclusion: Normal exercise myocardial perfusion stress test at a moderate workload Preserved ejection fraction. 05/20/24 1550 Date Clay Jean MD CC: SHAMAR Cevallos; Dr. Garo Steele MD Date Dictated: 05/20/241547 Date Transcribed: 05/20/241547 Licensing Director: [place] Signed Normal [facility] Brain/Head without Contrast n 04-12-2024 Brain/Head without Contrast [facility] [address] [place] [id number] Brain/Head without Contrast MR#: [id number] Acct: [id number] Name: TARIK DUNHAM Rep #: [id number] : 1950 F 74 From: Marya Fernandez MD PCP: Dr. Garo Steele MD Status: REG ER Study: Brain/Head without Contrast Date of Exam: 03/16 03/08 Exam# [id number] Ordering Dr: Fazal Mcmanus DO [id number] INDICATION: Injury/Pain EXAMINATION: CT BRAIN - CT Head or Brain W/O Contrast Injection TECHNIQUE: Multiple axial images were obtained of the head without intravenous contrast. The protocol utilizes one or more of the following dose reduction techniques: automated exposure control, adjustment of mA and/or kV according to patient size,and/or use of iterative reconstruction technique. IV Contrast dosage and agent: None. RADIATION DOSAGE (If Supplied By Facility): CTDIvol = ( 47.06 ) mGy, DLP = ( 943.26 ) mGycm COMPARISON: No relevant prior comparison study available FINDINGS: BRAIN PARENCHYMA: No intra- or extra-axial hemorrhage. No evidence of acute infarct. No intracranial mass or mass effect. There is preservation of the hyatt/white matter interface. Posterior fossa structures are unremarkable. CSF SPACES: Appropriate for age. No hydrocephalus. Basal cisterns are patent. CALVARIUM, SKULL BASE, PARANASAL SINUSES AND MASTOID AIR CELLS: Clear. No discrete lytic or blastic abnormalities. ORBITS: Both globes, extraocular muscles, optic nerves and retrobulbar fat appear unremarkable. ASPECTS Score for Acute Strokes: 10 CT/Brain/Head without Contrast IMPRESSION: No acute intracranial process. Electronically Signed: Marya Fernandez MD at 14:36 EDT , CC: Dr. Fazal Mcmanus DO; Dr. Garo Steele MD Licensing Director: Signed Normal [facility] Emergency Department Summary on 04-12-2024 Emergency Department Summary [facility] Medical Records Department [address] [place] [address] Emergency Department Summary 04/12/24 MR#: [id number] Acct: [id number] Name: TARIK DUNHAM Rep #: [id number] : 1950 74 From: Fazal Mcmanus DO PCP: Dr. Garo Steele MD Status:DEP ER Location: ED HPI HPI - Fall History of Present Illness Chief Complaint: Fall Informant: patient Occured/Mechanism Occurred: Yesterday Mechanism/Context: Yes same level fall and Yes trip Narrative: Patient tripped and fell walking into a restaurant yesterday. Usually ambulates: Without assistance Pain/Injury Location: Left shoulder, left ribs, and head Pain Location: head, chest and upper extremity (Left shoulder) Quality of Pain: Sharp Worsened by: Deep breathing and movement Relieved by: Nothing Associated Symptoms Associated Symptoms: Negative for Parasthesias, Weakness, Loss of function, Inability to ambulate, Loss of consciousness or Amnesia Narrative Narrative: Patient presents with pain to the left side of her head, left shoulder, and left rib that began after a fall yesterday. Patient states she tripped while walking into a restaurant. Patient states she landed on her left side. Patient denies any loss of consciousness. Patient did hit the left side of her head. Patient denies any paresthesias or weakness. Patient describes her pain as sharp. Patient states it is worse with deep breathing and with certain movements. Patient denies any other injuries. [facility] Medical History Thyroid nodule Hyperlipidemia Hypothyroidism GERD (gastroesophageal reflux disease) Osteopenia Osteoarthritis Neuropathy Carpal tunnel syndrome Cataracts, bilateral Breast cancer Arthritis Seasonal allergies Home Medications ???Medication ???Instructions ???Recorded ???Last Taken ???Type magnesium 200 mg tablet 200 mg PO DAILY 11/12/21 Unknown History calcium 500 mg (as 1 tab PO DAILY 09/22/22 Unknown History carbonate)-vitamin D3 3.125 mcg (125 unit) tablet melatonin 5 mg tablet 5 mg PO HS PRN 10/22/22 Unknown History gabapentin 300 mg capsule 300 mg PO BID 11/21/22 Unknown History Allergy/AdvReac Type Severity Reaction Status Date / Time Iodinated Contrast Media Allergy Itching Verified 04/12/24 11:52 (Iodinated Contrast Media - IV Dye) Family History Mother Breast cancer Father Myocardial infarction, Onset Age: 42 Heart disease Hypertension High cholesterol Grandmother CVA (cerebral vascular accident) Sister Breast cancer Aunt Breast cancer Surgical History History of right knee joint replacement History of tonsillectomy History of surgery on right wrist History of bilateral carpal tunnel release History of foot surgery History of shoulder surgery H/O bilateral mastectomy History of hysterectomy Social History Smoking Status: Never smoker alcohol intake: current alcohol intake frequency: a few times a week substance use type: does not use caffeine: Yes Type: coffee Number of servings: 6 what type of physical activity do you participate in: none ROS ROS ED Constitutional Constitutional ED: Denies chills or fever(s) Eyes Eyes: Denies blurry vision or change in vision ENT ENT ED: Denies rhinorrhea or sore throat Cardiovascular Cardiovascular: Reports chest pain; Denies palpitations Respiratory/Chest Respiratory/Chest: Denies cough or dyspnea Gastrointestinal Gastrointestinal: Denies nausea or vomiting Genitourinary Genitourinary ED: Denies dysuria or hematuria Musculoskeletal Musculoskeletal: Reports back pain; Denies neck pain Integumentary Denies abscess or rash Neurologic Neurologic: Reports headache(s); Denies weakness Allergic/Immunologic Allergic/Immunologic ED: Denies mouth swelling or urticaria EXAM Physical Exam Const Vital Signs: 04/12/24 11:52 04/12/24 12:51 04/12/24 13:51 Temperature 97.4 F L Temperature Source Temporal Pulse Rate 60 53 L Respiratory Rate 18 16 Respiratory Effort Normal Respiratory Depth Normal Blood Pressure 126/61 H 123/74 H Blood Pressure Mean 82 90 Pulse Ox 100 96 Oxygen Delivery Method Room Air Positive well nourished and well developed General Appearance ED: well developed and NAD HEENT Reports normocephalic Neck full ROM and supple Chest Wall Chest Narrative: There is tenderness over the left fourth, fifth, and sixth ribs laterally. There is no bony crepitance or step-off. There is no subcutaneous emphysema noted. Resp normal respiratory effort and clear to auscultation bilaterally Cardio (more content not included)... Normal [facility] Ribs Uni Min 3V w/PA Cheston 04-12-2024 Ribs Uni Min 3V w/PA Chest [facility] [address] [place] [address] Ribs Uni Min 3V w/PA Chest MR#: [id number] Acct: [id number] Name: TARIK DUNHAM Rep #: [id number] : 1950 F 74 From: Dayne Clay MD PCP: Dr. Garo Steele MD Status: REG ER Study: Ribs Uni Min 3V w/PA Chest Date of Exam: 04/12 Exam# [id number] Ordering Dr: Fazal Mcmanus DO [id number] STUDY: X-RAY - UNILATERAL RIBS ( LEFT ) WITH CHEST REASON FOR EXAM: Female, 74 years old. Trauma. TECHNIQUE - RIBS: 4 views of the left ribs. TECHNIQUE - CHEST: Single PA view of the chest. COMPARISON: None. FINDINGS - RIBS: Normal visualized left ribs without a demonstrated fracture. FINDINGS - CHEST: The lungs are clear and expanded. There is no demonstrated pleural abnormality. Normal size heart. Normal mediastinum and vee. Normal visualized pulmonary arteries. There is mild atherosclerotic calcification of the aortic arch. Normal visualized thoracic spine. Normal visualized ribs, clavicles, and shoulders. There is no demonstrated abnormality of the visualized soft tissue structures of the upper abdomen. RAD/Ribs Uni Min 3V w/PA Chest IMPRESSION: RIBS: Normal x-ray examination of the left ribs. CHEST: Mild atherosclerotic calcification of the aortic arch. Electronically Signed: Dayen Clay MD at 14:52 EDT Reading Location ID and State: [facility] / [place] , Service support , CC: Dr. Fazal Mcmanus DO; Dr. Garo Steele MD Licensing Director: Signed Normal [facility] Shoulder min 2 Viewson 04-[address] [facility] [address] [place] [address] [id number] Shoulder min 2 Views MR#: [id number] Acct: [id number] Name: TARIK DUNHAM Rep #: [id number] : 1950 F 74 From: Dayne Clay MD PCP: Dr. Garo Steele MD Status: REG ER Study: Shoulder min 2 Views Date of Exam: 04/12/24 Exam# [id number] Ordering Dr: Fazal Mcmanus DO [id number] STUDY: X-RAY - LEFT SHOULDER REASON FOR EXAM: Female, 74 years old. Injury/Pain. TECHNIQUE: 4 views of the left shoulder. COMPARISON: None. FINDINGS: There is glenohumeral arthrosis with osteophyte formation along the inferomedial margin of the humeral head. There is mild acromioclavicular arthrosis. Normal acromion. There is calcific density adjacent to the greater tuberosity of the humeral head, compatible with calcific tendinitis of the rotator cuff. Intact humeral head and visualized proximal humerus. The soft tissue structures are unremarkable. There is no demonstrated fracture. Normal visualized pulmonary apex. RAD/Shoulder min 2 Views IMPRESSION: Glenohumeral arthrosis and mild acromioclavicular arthrosis. Calcific tendinitis of the rotator cuff. No demonstrated fracture. Electronically Signed: Dayne Clay MD at 14:43 EDT , CC: Dr. Fazal Mcmanus DO; Dr. Garo Steele MD Licensing Director: Signed Normal [facility] XR Hip - left 3 Viewson 03-16 No acute osseous abn ormality identified. Degenerative change and osteopenia. Report Dictated on Electronically Signed By: John Green MD Electronically Signed Date/Time: 04/04/2024 10:35 AM EDT [facility] Patient Name: TARIK DUNHAM : 1950 Exam Date/Time: 03/30/2024 11:37 Procedure: XR HIP 2 OR 3 VW LEFT Ordering Provider: GAN WILLIAM Reason For Exam: hip pain EXAMINATION: XR left hip. EXAM DATE & TIME: 03/30/2024 11:37 AM EDT INDICATION: hip pain ADDITIONAL INFORMATION: 74-year-old female with left hip pain presents for evaluation COMPARISON: None TECHNIQUE: AP and frog-leg lateral views of the left hip were obtained. FINDINGS: No acute fracture or traumatic dislocation is identified. Moderate degenerative changes of the hips are seen, left greater than right as evidenced by joint space narrowing, subchondral sclerosis and cystic formation and marginal spurring. Remote deformities of the inferior pubic rami are seen bilaterally, left more significant than right. Degenerative changes of the lumbosacral junction and sacroiliac joints are seen. The bones are osteopenic. No focal soft tissue abnormality or radiopaque foreign body is identified. [facility] John Green MD - 04/04/2024 Patient Name: TARIK DUNHAM : 1950 Exam Date/Time: 03/30/2024 11:37 Procedure: XR HIP 2 OR 3 VW LEFT Ordering Provider: GAN WILLIAM Reason For Exam: hip pain EXAMINATION: XR left hip. EXAM DATE & TIME: 03/30/2024 11:37 AM EDT INDICATION: hip pain ADDITIONAL INFORMATION: 74-year-old female with left hip pain presents for evaluation COMPARISON: None TECHNIQUE: AP and frog-leg lateral views of the left hip were obtained. FINDINGS: No acute fracture or traumatic dislocation is identified. Moderate degenerative changes of the hips are seen, left greater than right as evidenced by joint space narrowing, subchondral sclerosis and cystic formation and marginal spurring. Remote deformities of the inferior pubic rami are seen bilaterally, left more significant than right. Degenerative changes of the lumbosacral junction and sacroiliac joints are seen. The bones are osteopenic. No focal soft tissue abnormality or radiopaque foreign body is identified. IMPRESSION: No acute osseous abnormality identified. Degenerative change and osteopenia. Report Dictated on Electronically Signed By: John Green MD Electronically Signed Date/Time: 04/04/2024 10:35 AM EDT [employer] XR Hip - left 3 ViewsOrdered By: John Green on 04-04-2024 [employer] Work Phone: Office Visiton 03-30-2024 Follow-up visit [id number] AshleyPerla khan 1950 F Date Provider Department Center 03/30/2024 70437-XCSROALTAF GUILLORY SH ORT ISAAC None No family history on file Level of Service:51782 CO OFFICE/OUTPATIENT ESTABLISHED MOD MDM 30 MIN Reason for Visit and Comments: Follow-up [541245] - Right TKA 1 yr DOS 03-24-23 Normal [facility] Progress Noteon 03-30-2024 Progress Note [facility] [address] [place] [address] [place] [address] Dept: [phone] Dept 03/30/2024 Chief Complaint Patient presents with Follow-up Right TKA 1 yr DOS 03-24-23 Subjective: Tarik is approximately 1 year(s) out from a [...] Neurological: Negative for weakness. Objective: Ht 5' 6" (1.676 m) Wt 140 lb (63.5 kg) BMI 22.60 kg/m? Tarik overall looks well and comfortable. Gait: normal. [...] 2. Left hip pain Plan Right knee: Tarik will continue with WBAT and therapy. I [...] Altaf Metz M.D. 03/30/2024 at 11:05 AM. Normal [facility] XR Hip - left 3 Viewson 03-15 Radiology Study observation (narrative) [facility] 36on 03-28-2024 36 Name of caller: Jewell mary Contact phone number: [phone] Relationship to Patient: patient Provider: Isaías Practice: Ortho Chief Complaint/Reason for Call: Patient asking to have an xray of her left hip as well at her appt on 03/30/24. She states she lives far away and would prefer not to make multiple trips. Please advise. Best time of day caller can be reached: Any Patient advised that office/PCP has 24-48 business hours to return their call: Yes Normal [facility] CT CARDIAC SCORING WO IV CON TRASTon 11-05-2023 CT CARDIAC SCORING WO IV CONTRAST Interpreted By: David Bolden, STUDY: CT CARDIAC SCORING WO IV CONTRAST; 11/05/2023 11:31 am INDICATION: Signs/Symptoms:HYPERLIPIDEMIA . COMPARISON: None. ACCESSION NUMBER(S): [id number] ORDERING CLINICIAN: DANGELO CEVALLOS TECHNIQUE: Using prospective ECG gating, CT scan of the coronary arteries was performed without intravenous contrast. Coronary calcium scoring was performed according to the method of Agatston. FINDINGS: The score and distribution of calcium in the coronary arteries is as follows: LM 0 LAD 0 LCx 0 RCA 0 Total 0 The heart size is normal and there is no pericardial effusion. The chest vasculature is unremarkable.There is no significant mediastinal or hilar adenopathy. The visualized lungs are clear. The visualized upper abdominal contents are within normal limits. The bony structures are intact. IMPRESSION: Coronary artery calcium score of 0. Please note that up to 5% of patients with a negative exam could have significant noncalcified plaque, and therefore have a falsely " negative" CT coronary calcium score exam. Coronary artery calcium scoring may be helpful in predicting the risk for future coronary heart disease events. According to the [employer] Clinical Expert Consensus Task Force, such testing provides important prognostic information in patients with more than one coronary heart disease risk factor. The coronary artery calcium score correlates with the annual risk of a non-fatal myocardial infarction or coronary heart disease . Coronary artery score Annual Risk 0-99 0.4% 100-399 1.3% >400 2.4% These three "breakpoints" correspond to lower, intermediate and high risk states for future coronary events. Such information should be used, along with appropriate clinical judgment, to make decisions regarding the intensity of risk factor management strategies to treat blood lipids and to modify other non-lipid coronary risk factors. Reference: Staunton P et al. Circulation. 2007; 115:402-426 Signed by: David Bolden 11/06/2023 2:34 PM Dictation workstation: [id number] [facility] No Panel Informationon 07-22 Normal appearance of the patient's right total knee arthroplasty. Mild medial compartment osteoarthritis of the left knee. Report Dictated on Electronically Signed By: Augustine Bernardo MD Electronically Signed Date/Time: 07/22/2023 5:48 PM [facility] Patient Name: TARIK DUNHAM : 1950 Exam Date/Time: 07/22/2023 08:42 Procedure: XR KNEES ANTEROPOSTERIOR STANDING BILATERAL Ordering Provider: HOUSTON EMILY Reason For Exam: s/p R TKA STANDING AP VIEW BILATERAL KNEES RIGHT KNEE SERIES CLINICAL INDICATION: Status post right knee arthroplasty. A single, standing AP view of the bilateral knees was performed. Lateral and sunrise plain film views of the right knee were also obtained. COMPARISON: 04/29/2023 FINDINGS: The standing AP view of the bilateral knees demonstrates a right total knee arthroplasty. Mild joint space loss and degenerative spurring is noted within the medial compartment of the left knee. No fracture, dislocation, or loosening of the patient's right knee arthroplasty is identified. No joint effusion is seen on the lateral view of the right knee. Soft tissues are unremarkable. [facility] RADIOLOGY SYSTEM Augustine Bernardo MD - 07/22/2023 Patient Name: TARIK DUNHAM : 1950 Exam Date/Time: 07/22/2023 08:42 Procedure: XR KNEES ANTEROPOSTERIOR STANDING BILATERAL Ordering Provider: HOUSTON EMILY Reason For Exam: s/p R TKA STANDING AP VIEW BILATERAL KNEES RIGHT KNEE SERIES CLINICAL INDICATION: Status post right knee arthroplasty. A single, standing AP view of the bilateral knees was performed. Lateral and sunrise plain film views of the right knee were also obtained. COMPARISON: 04/29/2023 FINDINGS: The standing AP view of the bilateral knees demonstrates a right total knee arthroplasty. Mild joint space loss and degenerative spurring is noted within the medial compartment of the left knee. No fracture, dislocation, or loosening of the patient's right knee arthroplasty is identified. No joint effusion is seen on the lateral view of the right knee. Soft tissues are unremarkable. IMPRESSION: Normal appearance of the patient's right total knee arthroplasty. Mild medial compartment osteoarthritis of the left knee. Report Dictated on Electronically Signed By: Augustine Bernardo MD Electronically Signed Date/Time: 07/22/2023 5:48 PM EST [facility] [employer] Radiology Study observation (narrative) [facility] No Panel InformationOrdered By: Augustine Bernardo on 07-22-2023 [employer] XR Knee - right 1 or 2 Views on 07-22-2023 Patient Name: TARIK DUNHAM : 1950 Exam Date/Time: 07/22/2023 08:42 Procedure: XR KNEE 1-2 VIEWS RIGHT Ordering Provider: HOUSTON EMILY Reason For Exam: s/p R TKA STANDING AP VIEW BILATERAL KNEES RIGHT KNEE SERIES CLINICAL INDICATION: Status post right knee arthroplasty. A single, standing AP view of the bilateral knees was performed. Lateral and sunrise plain film views of the right knee were also obtained. COMPARISON: 04/29/2023 FINDINGS: The standing AP view of the bilateral knees demonstrates a right total knee arthroplasty. Mild joint space loss and degenerative spurring is noted within the medial compartment of the left knee. No fracture, dislocation, or loosening of the patient's right knee arthroplasty is identified. No joint effusion is seen on the lateral view of the right knee. Soft tissues are unremarkable. [facility] Augustine Bernardo MD - 07/22/2023 Patient Name: TARIK DUNHAM : 1950 Exam Date/Time: 07/22/2023 08:42 Procedure: XR KNEE 1-2 VIEWS RIGHT Ordering Provider: HOUSTON EMILY Reason For Exam: s/p R TKA STANDING AP VIEW BILATERAL KNEES RIGHT KNEE SERIES CLINICAL INDICATION: Status post right knee arthroplasty. A single, standing AP view of the bilateral knees was performed. Lateral and sunrise plain film views of the right knee were also obtained. COMPARISON: 04/29/2023 FINDINGS: The standing AP view of the bilateral knees demonstrates a right total knee arthroplasty. Mild joint space loss and degenerative spurring is noted within the medial compartment of the left knee. No fracture, dislocation, or loosening of the patient's right knee arthroplasty is identified. No joint effusion is seen on the lateral view of the right knee. Soft tissues are unremarkable. IMPRESSION: Normal appearance of the patient's right total knee arthroplasty. Mild medial compartment osteoarthritis of the left knee. Report Dictated on Electronically Signed By: Augustine Bernardo MD Electronically Signed Date/Time: 07/22/2023 5:48 PM EST [facility] No Panel Informationon 04-29 Right knee arthropla sty. Soft tissue swelling. Mild left knee osteoarthritis. Report Dictated on Electronically Signed By: Kanchan Potts MD Electronically Signed Date/Time: 04/29/2023 4:34 PM [facility] Patient Name: TARIK DUNHAM : 1950 Exam Date/Time: 04/29/2023 09:16 Procedure: XR KNEES ANTEROPOSTERIOR STANDING BILATERAL Ordering Provider: GREGG JACK Reason For Exam: s/p R TKA RIGHT KNEE, 2 VIEWS BILATERAL KNEES WITH WEIGHTBEARING, AP views History: Knee pain, arthroplasty, follow-up COMPARISON: 03/24/2023 Technique: Lateral and skyline patellar views of the right knee and additional AP weight-bearing views of both knees are provided. Findings: Right knee shows total arthroplasty without fracture, dislocation, appreciable loosening, or change in alignment compared to last exam. There is soft tissue swelling but the prior emphysema have decreased. Evaluation of the left knee on just the AP view is limited but there is mild left knee osteoarthritis with narrowed medial tibiofemoral joint space and marginal spurs. [facility] Kanchan Potts MD - 04/29/2023 Patient Name: TARIK DUNHAM : 1950 Exam Date/Time: 04/29/2023 09:16 Procedure: XR KNEES ANTEROPOSTERIOR STANDING BILATERAL Ordering Provider: GREGG JACK Reason For Exam: s/p R TKA RIGHT KNEE, 2 VIEWS BILATERAL KNEES WITH WEIGHTBEARING, AP views History: Knee pain, arthroplasty, follow-up COMPARISON: 03/24/2023 Technique: Lateral and skyline patellar views of the right knee and additional AP weight-bearing views of both knees are provided. Findings: Right knee shows total arthroplasty without fracture, dislocation, appreciable loosening, or change in alignment compared to last exam. There is soft tissue swelling but the prior emphysema have decreased. Evaluation of the left knee on just the AP view is limited but there is mild left knee osteoarthritis with narrowed medial tibiofemoral joint space and marginal spurs. IMPRESSION: Right knee arthroplasty. Soft tissue swelling. Mild left knee osteoarthritis. Report Dictated on Electronically Signed By: Kanchan Potts MD Electronically Signed Date/Time: 04/29/2023 4:34 PM EST [facility] Certain Radiology Study observation (narrative) [employer] No Panel InformationOrdered By: Kanchan Potts on 04-29-2023 [employer] Work Phone: XR Knee - right 1 or 2 Views on 04-29-2023 Patient Name: TARIK DUNHAM : 1950 Exam Date/Time: 04/29/2023 09:16 Procedure: XR KNEE 1-2 VIEWS RIGHT Ordering Provider: GREGG JACK Reason For Exam: s/p R TKA RIGHT KNEE, 2 VIEWS BILATERAL KNEES WITH WEIGHTBEARING, AP views History: Knee pain, arthroplasty, follow-up COMPARISON: 03/24/2023 Technique: Lateral and skyline patellar views of the right knee and additional AP weight-bearing views of both knees are provided. Findings: Right knee shows total arthroplasty without fracture, dislocation, appreciable loosening, or change in alignment compared to last exam. There is soft tissue swelling but the prior emphysema have decreased. Evaluation of the left knee on just the AP view is limited but there is mild left knee osteoarthritis with narrowed medial tibiofemoral joint space and marginal spurs. [facility] RADIOLOGY [facility] Kanchan Potts MD - 04/29/2023 Patient Name: TARIK DUNHAM : 1950 Exam Date/Time: 04/29/2023 09:16 Procedure: XR KNEE 1-2 VIEWS RIGHT Ordering Provider: GREGG JACK Reason For Exam: s/p R TKA RIGHT KNEE, 2 VIEWS BILATERAL KNEES WITH WEIGHTBEARING, AP views History: Knee pain, arthroplasty, follow-up COMPARISON: 03/24/2023 Technique: Lateral and skyline patellar views of the right knee and additional AP weight-bearing views of both knees are provided. Findings: Right knee shows total arthroplasty without fracture, dislocation, appreciable loosening, or change in alignment compared to last exam. There is soft tissue swelling but the prior emphysema have decreased. Evaluation of the left knee on just the AP view is limited but there is mild left knee osteoarthritis with narrowed medial tibiofemoral joint space and marginal spurs. IMPRESSION: Right knee arthroplasty. Soft tissue swelling. Mild left knee osteoarthritis. Report Dictated on Electronically Signed By: Kanchan Potts MD Electronically Signed Date/Time: 04/29/2023 4:34 PM EST [facility] Basic metabolic 1998 panelon 03-25-2023 Anion gap [Moles/Vol] 9 mmol/L 3 - 13 mmol/L [facility] Calcium [Mass/Vol] 9.4 mg/dL 8.4 - 10. 4 mg/dL [facility] Chloride [Moles/Vol] 103 mmol/L 98 - 10 7 mmol/L [facility] CO2 [Moles/Vol] 21 mmol/L Low 22 - 30 mmol/L [facility] Creatinine [Mass/Vol] 0.60 mg/dL 0.52 - 1.04 mg/dL [facility] GFR/1.73 sq M.predicted MDRD (S/P/Bld) [Vol rate/Area] - PINF [facility] Comment on above: Calculation based on the Chronic Kidney Disease Epidemiology Collaboration (CKD-EPI) equation refit without adjustment for race Glucose [Mass/Vol] 138 mg/dL High 70 - 100 mg/dL [facility] Interpretation and review of laboratory results Abnormal [facility] Potassium [Moles/Vol] 4.8 mmol/L 3.5 - 5.1 mmol/L [facility] Sodium [Moles/Vol] 133 mmol/L Low 135 - 145 mmol/L [facility] Urea nitrogen [Mass/Vol] 20 mg/dL High 7 - 17 mg/dL [facility] Hemoglobin (Bld) [Mass/Vol]o n 03-25-2023 Hematocrit (Bld) [Volume fraction] 35.3 % 35.0 - 47.0 % [facility] Interpretation and review of laboratory results Normal [facility] Hemoglobin and hematocrit, b loodon 03-25-2023 Hemoglobin (Bld) [Mass/Vol] 12.0 g/dL 11.7 - 16.0 g/dL [facility] XR Knee - right 1 or 2 Views on 03-24-2023 Baseline exam status post interval right total knee arthroplasty as described. Report Dictated on Electronically Signed By: Marco Hightower MD Electronically Signed Date/Time: 03/24/2023 4:28 PM EDT [facility] RADIOLOGY SYSTEM Patient Name: TARIK DUNHAM : 1950 Exam Date/Time: 03/24/2023 11:47 Procedure: XR KNEE 1-2 VIEWS RIGHT Ordering Provider: GREGG JACK Reason For Exam: Postprocedure EXAMINATION: XR KNEE 1-2 VIEWS RIGHT HISTORY: Postprocedure. TECHNIQUE: XR KNEE 1-2 VIEWS RIGHT COMPARISON: Radiograph 01/28/2023 RESULT: Status post interval right total knee arthroplasty with patellar resurfacing. Hardware is intact. No lucency adjacent hardware to suggest loosening. No acute fracture or dislocation. Gas in the subcutaneous soft tissues and joint space, expected postoperatively. [facility] Marco Hightower MD - 03/24/2023 Patient Name: TARIK DUNHAM : 1950 Exam Date/Time: 03/24/2023 11:47 Procedure: XR KNEE 1-2 VIEWS RIGHT Ordering Provider: GREGG JACK Reason For Exam: Postprocedure EXAMINATION: XR KNEE 1-2 VIEWS RIGHT HISTORY: Postprocedure. TECHNIQUE: XR KNEE 1-2 VIEWS RIGHT COMPARISON: Radiograph 01/28/2023 RESULT: Status post interval right total knee arthroplasty with patellar resurfacing. Hardware is intact. No lucency adjacent hardware to suggest loosening. No acute fracture or dislocation. Gas in the subcutaneous soft tissues and joint space, expected postoperatively. IMPRESSION: Baseline exam status post interval right total knee arthroplasty as described. Report Dictated on Electronically Signed By: Marco Hightower MD Electronically Signed Date/Time: 03/24/2023 4:28 PM EDT [facility] Certain Radiology Study observation (narrative) [employer] XR Knee - right 1 or 2 Views Ordered By: Marco Hightower on 03-24-2023 [employer] Work Phone: CT Chest WO contraston 02-06 IMPRESSION: 1. No CT evidence of metastatic disease or acute process within the chest. OLOGY EXAM: CT CHEST WITHO UT CONTRAST, 02/06/2023 15:21 PM COMPARISON: No Available Comparisons. CLINICAL INDICATIONS: hx of breast cancer, r/o rib fx or mass. 3 week history of R axilla/chest pain; RELEVANT CLINICAL HISTORY: Z90.13:H/O bilateral mastectomy Z85.3:History of right breast cancer TECHNIQUE: CT images of the chest were obtained without intravenous contrast. FINDINGS: Lungs and Pleura: No suspicious nodule. Few tiny nodules. Biapical scarring. Mild bibasilar atelectasis. No consolidation. No pleural fluid. Tracheobronchial tree: No abnormality. Mediastinum/Vee: No mediastinal or hilar lymphadenopathy. Axilla and Supraclavicular Regions: No axillary or supraclavicular adenopathy. Cardiovascular: The cardiac chambers are within normal limits. The pericardium is normal. The aorta and its arch branch vessels are unremarkable. The pulmonary arteries are also unremarkable. Upper Abdomen: The upper abdominal contents are unremarkable. Bones and Soft Tissue: No suspicious osseous lesion. remote right rib fractures. No acute fractures. Mild superior compression deformity of T5. T11 hemangioma. Degenerative changes of bilateral glenohumeral joints status post right shoulder rotator cuff repair. Bilateral mastectomy with intact implants. RADIOLOGY Shakila Elam [facility] - 02/06/2023 EXAM: CT CHEST WITHOUT CONTRAST, 02/06/2023 15:21 PM COMPARISON: No Available Comparisons. CLINICAL INDICATIONS: hx of breast cancer, r/o rib fx or mass. 3 week history of R axilla/chest pain; RELEVANT CLINICAL HISTORY: Z90.13:H/O bilateral mastectomy Z85.3:History of right breast cancer TECHNIQUE: CT images of the chest were obtained without intravenous contrast. FINDINGS: Lungs and Pleura: No suspicious nodule. Few tiny nodules. Biapical scarring. Mild bibasilar atelectasis. No consolidation. No pleural fluid. Tracheobronchial tree: No abnormality. Mediastinum/Vee: No mediastinal or hilar lymphadenopathy. Axilla and Supraclavicular Regions: No axillary or supraclavicular adenopathy. Cardiovascular: The cardiac chambers are within normal limits. The pericardium is normal. The aorta and its arch branch vessels are unremarkable. The pulmonary arteries are also unremarkable. Upper Abdomen: The upper abdominal contents are unremarkable. Bones and Soft Tissue: No suspicious osseous lesion. remote right rib fractures. No acute fractures. Mild superior compression deformity of T5. T11 hemangioma. Degenerative changes of bilateral glenohumeral joints status post right shoulder rotator cuff repair. Bilateral mastectomy with intact implants. IMPRESSION IMPRESSION: 1. No CT evidence of metastatic disease or acute process within the chest. [facility] Radiology Study observation (narrative) [facility] CT Chest WO contrastOrdered By: Shakila Elam on 02-06-2023 [facility] Work Phone: US Breast - right limitedon 02-06-2023 IMPRESSION: Sonography of the area of clinical concern identified a a few normal-appearing lymph nodes and otherwise normal tissues. BI-RADS: 2: Benign Recommendation: Clinical correlation/management. Recommendation Laterality: Right OLOGY EXAM: US BREAST LIMI MANUEL UNILATERAL RIGHT, 02/06/2023 14:44 PM CLINICAL INDICATIONS: 72-year-old female status post mastectomy and reconstruction here for further evaluation of pain in the reconstructed right breast/axillary tail COMPARISON: No prior studies available for comparison. TECHNIQUE: Multiple real-time hyatt-scale images of the reconstructed right breast in the axillary tail performed. Color Doppler was used to assess vascular flow. FINDINGS: In the axillary tail the right breast there are several normal-appearing lymph nodes. The patient underlying implant is noted. Otherwise, only normal-appearing tissues are noted. RADIOLOGY Jose Ryan M D - 02/06/2023 EXAM: US BREAST LIMITED UNILATERAL RIGHT, 02/06/2023 14:44 PM CLINICAL INDICATIONS: 72-year-old female status post mastectomy and reconstruction here for further evaluation of pain in the reconstructed right breast/axillary tail COMPARISON: No prior studies available for comparison. TECHNIQUE: Multiple real-time hyatt-scale images of the reconstructed right breast in the axillary tail performed. Color Doppler was used to assess vascular flow. FINDINGS: In the axillary tail the right breast there are several normal-appearing lymph nodes. The patient underlying implant is noted. Otherwise, only normal-appearing tissues are noted. IMPRESSION IMPRESSION: Sonography of the area of clinical concern identified a a few normal-appearing lymph nodes and otherwise normal tissues. BI-RADS: 2: Benign Recommendation: Clinical correlation/management. Recommendation Laterality: Right [facility] Radiology Study observation (narrative) [facility] US Breast - right limitedOrd ered By: Jose Rayn on 02-06-2023 [facility] Work Phone: Basophil percentageOrdered B y: Yony Navarro on 02-04-2023 Bilirubin [Mass/Vol] 0.40 mg/dL 0.20-1.00 [facility] Comment on above: For patients on eltr ombopag therapy, use of Dimension [place] TBIL is not recommended. Cholesterol [Mass/Vol] 184 mg/dL <200 [facility] Comment on above: <200 mg/dL Desirable 200-240 mg/dL Borderline >240 mg/dL High Risk Protein [Mass/Vol] 6.4 g/dL 6.4-8.2 [facility] Triglyceride [Mass/Vol] 106 mg/dL <199 [facility] Comment on above: The drugs N-Acetylcy steine and Metamizole may falsely depress this assay.Serum Triglycerides Reference Interval Normal <150 mg/dL Borderline high 150 - 199 mg/dL High 200 - 499 mg/dL Very High > or = 500 mg/dL Direct bilirubinOrdered By: Yony Navarro on 02-04-2023 Bilirubin.direct [Mass/Vol] 0.08 mg/dL 0.00-0.30 [facility] Laboratory - Chemistry and C hemistry - challengeOrdered By: Yony Navarro on 02-04-2023 ALP [Catalytic activity/Vol] 67 U/L 45-117 [facility] ALT [Catalytic activity/Vol] 25 U/L 13-56 [facility] Globulin (S) [Mass/Vol] 3.2 g/dL 2.2-4.2 [facility] Serum or plasma albumin marvin urement (mass/volume)Ordered By: Yony Navarro on 02-04-2023 Albumin [Mass/Vol] 3.2 g/dL 3.2-5.0 [facility] Serum or plasma cholesterol in HDL measurement (mass/volume)Ordered By: Yony Navarro on 02-04-2023 Cholesterol in HDL [Mass/Vol] 54 mg/dL >40 [facility] Comment on above: The drugs N-Acetylcy steine and Metamizole may falsely depress this assay. Reference Range HDL <40 mg/dL Low HDL Cholesterol HDL >or= 60 mg/dL High HDL Cholesterol Serum or plasma cholesterol in VLDL measurement (mass/volume)Ordered By: Yony Navarro on 02-04-2023 Cholesterol in VLDL [Mass/Vol] 21 mg/dL 5-40 [facility] Serum or plasma low density lipoprotein (LDL) cholesterol measurement (mass/volume)Ordered By: Yony Navarro on 02-04-2023 Cholesterol in LDL [Mass/Vol] 109 mg/dL 0-130 [facility] Thin prep Papanicolaou smear with manual screeningOrdered By: Yony Navarro on 02-04-2023 Thin prep Papanicolaou smear with manual screening 19 U/L 15-37 [facility] CONTINUOUS CARDIAC MONITORIN G STRIPon 02-11-2022 [facility] CONTINUOUS CARDIAC MONITORIN G STRIPOrdered By: Unassigned Pacs on 02-11-2022 [facility] Work Phone: Absolute lymphocyte counton 01-29-2022 Lymphocytes Auto (Unsp spec) [#/Vol] 2.12 10*3/uL 0.83-4.51 [facility] Work Phone: Basophil percentageon 2021 Basophils/100 WBC (Bld) 0.8 % 0-1 [facility] Work Phone: Bilirubin [Mass/Vol] 0.40 mg/dL 0.20-1.00 [facility] Work Phone: Comment on above: For patients on eltr ombopag therapy, use of Dimension [place] TBIL is not recommended. Chloride [Moles/Vol] 107 mmol/L 98-107 [facility] Work Phone: Cholesterol [Mass/Vol] 248 mg/dL <200 [facility] Work Phone: Comment on above: <200 mg/dL Desirable 200-240 mg/dL Borderline >240 mg/dL High Risk Eosinophils/100 WBC (Bld) 2.3 % 0-5 [facility] Work Phone: Glucose [Mass/Vol] 99 mg/dL 74-106 [facility] Work Phone: Neutrophils (Bld) [#/Vol] 2.5 10*3/uL 2.0-7.7 [facility] Work Phone: Neutrophils/100 WBC (Bld) 47.5 % 47-70 [facility] Work Phone: Potassium [Moles/Vol] 4.5 mmol/L 3.5-5.1 [facility] Work Phone: Protein [Mass/Vol] 6.5 g/dL 6.4-8.2 [facility] Work Phone: Sodium [Moles/Vol] 142 mmol/L 136-145 [facility] Work Phone: Triglyceride [Mass/Vol] 103 mg/dL <199 [facility] Work Phone: Comment on above: The drugs N-Acetylcy steine and Metamizole may falsely depress this assay.Serum Triglycerides Reference Interval Normal <150 mg/dL Borderline high 150 - 199 mg/dL High 200 - 499 mg/dL Very High > or = 500 mg/dL WBC (Bld) [#/Vol] 5.2 10*3/uL 4.4-11.0 [facility] Work Phone: Blood erythrocytes count (nu mber/volume)on 01-29-2022 RBC (Bld) [#/Vol] 4.07 10*6/uL 4.2-5.4 [facility] Work Phone: Blood hemoglobin measurement (mass/volume)on 01-29-2022 Hemoglobin (Bld) [Mass/Vol] 12.3 g/dL 12.0-15.0 [facility] Work Phone: Blood lymphocytes/100 leukoc yteson 01-29-2022 Lymphocytes/100 WBC (Bld) 41.2 % 19-41 [facility] Work Phone: Blood monocytes/100 leukocyt eson 01-29-2022 Monocytes/100 WBC (Bld) 8.0 % 0-10 [facility] Work Phone: Blood platelet mean volumeon 01-29-2022 Platelet mean volume (Bld) [Entitic vol] 10.0 fL 6.2-12.0 [facility] Work Phone: Determination of erythrocyte mean corpuscular volume (MCV)on 01-29-2022 MCV (RBC) [Entitic vol] 91.9 fL 81-99 [facility] Work Phone: Hematocrit Auto (Bld) [Volum e fraction]on 01-29-2022 Hematocrit (Bld) [Volume fraction] 37.4 % 37-47 [facility] Work Phone: Laboratory - Chemistry and C hemistry - challengeon 01-29-2022 ALP [Catalytic activity/Vol] 56 U/L 45-117 [facility] Work Phone: ALT [Catalytic activity/Vol] 25 U/L 13-56 [facility] Work Phone: CO2 [Moles/Vol] 29.0 mmol/L 21.0-32.0 [facility] Work Phone: Free T4 [Mass/Vol] 0.92 ng/dL 0.76-1.46 [facility] Work Phone: Globulin (S) [Mass/Vol] 3.0 g/dL 2.2-4.2 [facility] Work Phone: Urea nitrogen/Creatinine [Mass ratio] 17.9 mg/mg 10-20 [facility] Work Phone: Laboratory - Hematology and Cell countson 01-29-2022 Erythrocyte distribution width (RBC) [Entitic vol] 43.0 fL 35.1-43.9 [facility] Work Phone: Erythrocyte distribution width (RBC) [Ratio] 12.9 % 11.6-14.6 [facility] Work Phone: Immature granulocytes/100 WBC (Bld) 0.200 % 0.0-0.9 [facility] Work Phone: Comment on above: IG% - Immature Granu locytes (promyelocytes, myelocytes and metamyelocytes) > 1% indicates that a LEFT SHIFT is Present. MCH (RBC) [Entitic mass] 30.2 pg 27.0-32.0 [facility] Work Phone: Nucleated RBC/100 WBC (Bld) [Ratio] 0 % 0-5 [facility] Work Phone: MCHC Auto (RBC) [Mass/Vol]on 01-29-2022 MCHC (RBC) [Mass/Vol] 32.9 g/dL 32-36 [facility] Work Phone: No Panel Informationon 01-29 Estimated GFR (MDRD) Amer 86 mL/min >60 [facility] Work Phone: Comment on above: GFR Calc Estimated GFR (MDRD) Non-Af Amer 71 mL/min >60 [facility] Work Phone: Comment on above: Non- GFR Calc Free Triiodothyronine (T3) pg/dL 2.7 pg/mL 2.18-3.98 [facility] Work Phone: Thyroid Stimulating Hormone (TSH) 3.40 uIU/mL 0.358-3.74 [facility] Work Phone: Platelets bldon 01-29-2022 Platelets (Bld) [#/Vol] 288 10*3/uL 150-450 [facility] Work Phone: Serum or plasma albumin marvin urement (mass/volume)on 01-29-2022 Albumin [Mass/Vol] 3.5 g/dL 3.2-5.0 [facility] Work Phone: Serum or plasma albumin/glob ulin mass ratioon 01-29-2022 Albumin/Globulin [Mass ratio] 1.2 {ratio} 0.9-2.4 [facility] Work Phone: Serum or plasma calcium marvin urement (mass/volume)on 01-29-2022 Calcium [Mass/Vol] 9.1 mg/dL 8.5-10.1 [facility] Work Phone: Serum or plasma cholesterol in HDL measurement (mass/volume)on 01-29-2022 Cholesterol in HDL [Mass/Vol] 72 mg/dL >40 [facility] Work Phone: Comment on above: The drugs N-Acetylcy steine and Metamizole may falsely depress this assay. Reference Range HDL <40 mg/dL Low HDL Cholesterol HDL >or= 60 mg/dL High HDL Cholesterol Serum or plasma cholesterol in VLDL measurement (mass/volume)on 01-29-2022 Cholesterol in VLDL [Mass/Vol] 21 mg/dL 5-40 [facility] Work Phone: Serum or plasma creatinine m easurement (mass/volume)on 01-29-2022 Creatinine [Mass/Vol] 0.84 mg/dL 0.55-1.02 [facility] Work Phone: Comment on above: The validity of the calculated GFR & GFRAA in patients over 70 years has not been determined. Clinical correlation is essential. Serum or plasma low density lipoprotein (LDL) cholesterol measurement (mass/volume)on 01-29-2022 Cholesterol in LDL [Mass/Vol] 155 mg/dL 0-130 [facility] Work Phone: Serum or plasma urea nitroge n measurement (mass/volume)on 01-29-2022 Urea nitrogen [Mass/Vol] 15 mg/dL 7-18 [facility] Work Phone: Thin prep Papanicolaou smear with manual screeningon 01-29-2022 Thin prep Papanicolaou smear with manual screening 20 U/L 15-37 [facility] Work Phone: Thin prep Papanicolaou smear with manual screening 6 5-15 [facility] Work Phone: Laboratory - Chemistry and C hemistry - challengeon 12-03-2021 T4 [Mass/Vol] 9.1 ug/dL 4.8-13.9 [facility] Work Phone: No Panel Informationon 12-03 Thyroid Stimulating Hormone (TSH) 3.44 uIU/mL 0.358-3.74 [facility] Work Phone: Total Triiodothyronine 1.19 ng/mL 0.6-1.81 [facility] Work Phone: Basophil percentageon 2021 Chloride [Moles/Vol] 104 mmol/L 98-107 [facility] Work Phone: Glucose [Mass/Vol] 89 mg/dL 74-106 [facility] Work Phone: Potassium [Moles/Vol] 4.8 mmol/L 3.5-5.1 [facility] Work Phone: Sodium [Moles/Vol] 137 mmol/L 136-145 [facility] Work Phone: WBC (Bld) [#/Vol] 6.5 10*3/uL 4.4-11.0 [facility] Work Phone: Blood erythrocytes count (nu mber/volume)on 11-21-2021 RBC (Bld) [#/Vol] 3.92 10*6/uL 4.2-5.4 [facility] Work Phone: Blood hemoglobin measurement (mass/volume)on 11-21-2021 Hemoglobin (Bld) [Mass/Vol] 12.1 g/dL 12.0-15.0 [facility] Work Phone: Blood platelet mean volumeon 11-21-2021 Platelet mean volume (Bld) [Entitic vol] 10.1 fL 6.2-12.0 [facility] Work Phone: Determination of erythrocyte mean corpuscular volume (MCV)on 11-21-2021 MCV (RBC) [Entitic vol] 91.8 fL 81-99 [facility] Work Phone: Hematocrit Auto (Bld) [Volum e fraction]on 11-21-2021 Hematocrit (Bld) [Volume fraction] 36.0 % 37-47 [facility] Work Phone: Laboratory - Chemistry and C hemistry - challengeon 11-21-2021 CO2 [Moles/Vol] 28.0 mmol/L 21.0-32.0 [facility] Work Phone: Urea nitrogen/Creatinine [Mass ratio] 20.1 mg/mg 10-20 [facility] Work Phone: Laboratory - Hematology and Cell countson 11-21-2021 Erythrocyte distribution width (RBC) [Entitic vol] 41.9 fL 35.1-43.9 [facility] Work Phone: Erythrocyte distribution width (RBC) [Ratio] 12.5 % 11.6-14.6 [facility] Work Phone: MCH (RBC) [Entitic mass] 30.9 pg 27.0-32.0 [facility] Work Phone: MCHC Auto (RBC) [Mass/Vol]on 11-21-2021 MCHC (RBC) [Mass/Vol] 33.6 g/dL 32-36 [facility] Work Phone: No Panel Informationon 11-21 Estimated GFR (MDRD) Amer 98 mL/min >60 [facility] Work Phone: Comment on above: GFR Calc Estimated GFR (MDRD) Non-Af Amer 81 mL/min >60 [facility] Work Phone: Comment on above: Non- GFR Calc Platelets bldon 11-21-2021 Platelets (Bld) [#/Vol] 308 10*3/uL 150-450 [facility] Work Phone: Serum or plasma calcium marvin urement (mass/volume)on 11-21-2021 Calcium [Mass/Vol] 9.6 mg/dL 8.5-10.1 [facility] Work Phone: Serum or plasma creatinine m easurement (mass/volume)on 11-21-2021 Creatinine [Mass/Vol] 0.75 mg/dL 0.55-1.02 [facility] Work Phone: Comment on above: The validity of the calculated GFR & GFRAA in patients over 70 years has not been determined. Clinical correlation is essential. Serum or plasma urea nitroge n measurement (mass/volume)on 11-21-2021 Urea nitrogen [Mass/Vol] 15 mg/dL 7-18 [facility] Work Phone: Thin prep Papanicolaou smear with manual screeningon 11-21-2021 Thin prep Papanicolaou smear with manual screening 5 5-15 [facility] Work Phone: No Panel Informationon 11-12 Thyroglobulin Antibody < 1.0 IU/mL 0.0-0.9 [facility] Work Phone: Comment on above: Thyroglobulin Antibo dy measured by Learn It LiveMethodologyPerformed at: [place] - [facility] [address] [id number] Director: Dann Baez PhD, Phone: [phone] Serum or plasma thyroperoxid ase antibody assay (units/volume)on 11-12-2021 TPO Ab Qn [IU]/mL 0-34 [facility] Work Phone: No Panel Informationon 08-14 Thyroid Stimulating Hormone (TSH) 2.02 uIU/mL 0.358-3.74 [facility] Work Phone: Absolute lymphocyte counton 06-18-2021 Lymphocytes Auto (Unsp spec) [#/Vol] 2.33 10*3/uL 0.83-4.51 [facility] Work Phone: Basophil percentageon 2021 Basophils/100 WBC (Bld) 0.8 % 0-1 [facility] Work Phone: Bilirubin [Mass/Vol] 0.30 mg/dL 0.20-1.00 [facility] Work Phone: Comment on above: For patients on eltr ombopag therapy, use of Dimension [place] TBIL is not recommended. Chloride [Moles/Vol] 102 mmol/L 98-107 [facility] Work Phone: Cholesterol [Mass/Vol] 266 mg/dL <200 [facility] Work Phone: Comment on above: <200 mg/dL Desirable 200-240 mg/dL Borderline >240 mg/dL High Risk Eosinophils/100 WBC (Bld) 3.0 % 0-5 [facility] Work Phone: Glucose [Mass/Vol] 99 mg/dL 74-106 [facility] Work Phone: Comment on above: Please note revised GLUCOSE reference range effective 2017. Neutrophils (Bld) [#/Vol] 3.6 10*3/uL 2.0-7.7 [facility] Work Phone: Neutrophils/100 WBC (Bld) 53.9 % 47-70 [facility] Work Phone: Potassium [Moles/Vol] 4.0 mmol/L 3.5-5.1 [facility] Work Phone: Protein [Mass/Vol] 7.0 g/dL 6.4-8.2 [facility] Work Phone: Sodium [Moles/Vol] 139 mmol/L 136-145 [facility] Work Phone: Triglyceride [Mass/Vol] 154 mg/dL [facility] Work Phone: Comment on above: The drugs N-Acetylcy steine and Metamizole may falsely depress this assay.Serum Triglycerides Reference Interval Normal <150 mg/dL Borderline high 150 - 199 mg/dL High 200 - 499 mg/dL Very High > or = 500 mg/dL WBC (Bld) [#/Vol] 6.6 10*3/uL 4.4-11.0 [facility] Work Phone: Blood erythrocytes count (nu mber/volume)on 06-18-2021 RBC (Bld) [#/Vol] 4.03 10*6/uL 4.2-5.4 [facility] Work Phone: Blood hemoglobin measurement (mass/volume)on 06-18-2021 Hemoglobin (Bld) [Mass/Vol] 12.0 g/dL 12.0-15.0 [facility] Work Phone: Blood lymphocytes/100 leukoc yteson 06-18-2021 Lymphocytes/100 WBC (Bld) 35.2 % 19-41 [facility] Work Phone: Blood monocytes/100 leukocyt eson 06-18-2021 Monocytes/100 WBC (Bld) 6.8 % 0-10 [facility] Work Phone: Blood platelet mean volumeon 06-18-2021 Platelet mean volume (Bld) [Entitic vol] 9.9 fL 6.2-12.0 [facility] Work Phone: Determination of erythrocyte mean corpuscular volume (MCV)on 06-18-2021 MCV (RBC) [Entitic vol] 90.1 fL 81-99 [facility] Work Phone: Hematocrit Auto (Bld) [Volum e fraction]on 06-18-2021 Hematocrit (Bld) [Volume fraction] 36.3 % 37-47 [facility] Work Phone: Laboratory - Chemistry and C hemistry - challengeon 06-18-2021 ALP [Catalytic activity/Vol] 70 U/L 45-117 [facility] Work Phone: ALT [Catalytic activity/Vol] 28 U/L 13-56 [facility] Work Phone: CO2 [Moles/Vol] 30.0 mmol/L 21.0-32.0 [facility] Work Phone: Globulin (S) [Mass/Vol] 3.3 g/dL 2.2-4.2 [facility] Work Phone: Urea nitrogen/Creatinine [Mass ratio] 30.7 mg/mg 10-20 [facility] Work Phone: Laboratory - Hematology and Cell countson 06-18-2021 Erythrocyte distribution width (RBC) [Entitic vol] 42.6 fL 35.1-43.9 [facility] Work Phone: Erythrocyte distribution width (RBC) [Ratio] 12.9 % 11.6-14.6 [facility] Work Phone: Immature granulocytes/100 WBC (Bld) 0.300 % 0.0-0.9 [facility] Work Phone: Comment on above: IG% - Immature Granu locytes (promyelocytes, myelocytes and metamyelocytes) > 1% indicates that a LEFT SHIFT is Present. MCH (RBC) [Entitic mass] 29.8 pg 27.0-32.0 [facility] Work Phone: Nucleated RBC/100 WBC (Bld) [Ratio] 0 % 0-5 [facility] Work Phone: MCHC Auto (RBC) [Mass/Vol]on 06-18-2021 MCHC (RBC) [Mass/Vol] 33.1 g/dL 32-36 [facility] Work Phone: No Panel Informationon 06-18 Estimated GFR (MDRD) Amer 98 mL/min >60 [facility] Work Phone: Comment on above: GFR Calc Estimated GFR (MDRD) Non-Af Amer 81 mL/min >60 [facility] Work Phone: Comment on above: Non- GFR Calc Thyroid Stimulating Hormone (TSH) 4.20 uIU/mL 0.358-3.74 [facility] Work Phone: Vitamin D 25-Hydroxy 42.5 ng/mL [facility] Work Phone: Comment on above: Vitamin D 25(OH) Sta tus Range Deficiency <20 ng/mL (50nmol/L) Insufficiency 20 - 30 ng/mL (50 - 75 nmol/L) Sufficiency 30 - 100 ng/mL (75 - 250 nmol/L) Toxicity >100 ng/mL (>250 nmol/L) Platelets bldon 06-18-2021 Platelets (Bld) [#/Vol] 298 10*3/uL 150-450 [facility] Work Phone: Serum or plasma albumin marvin urement (mass/volume)on 06-18-2021 Albumin [Mass/Vol] 3.7 g/dL 3.2-5.0 [facility] Work Phone: Serum or plasma albumin/glob ulin mass ratioon 06-18-2021 Albumin/Globulin [Mass ratio] 1.1 {ratio} 0.9-2.4 [facility] Work Phone: Serum or plasma calcium marvin urement (mass/volume)on 06-18-2021 Calcium [Mass/Vol] 9.2 mg/dL 8.5-10.1 [facility] Work Phone: Serum or plasma cholesterol in HDL measurement (mass/volume)on 06-18-2021 Cholesterol in HDL [Mass/Vol] 68 mg/dL [facility] Work Phone: Comment on above: The drugs N-Acetylcy steine and Metamizole may falsely depress this assay. Reference Range HDL <40 mg/dL Low HDL Cholesterol HDL >or= 60 mg/dL High HDL Cholesterol Serum or plasma cholesterol in VLDL measurement (mass/volume)on 06-18-2021 Cholesterol in VLDL [Mass/Vol] 31 mg/dL 5-40 [facility] Work Phone: Serum or plasma creatinine m easurement (mass/volume)on 06-18-2021 Creatinine [Mass/Vol] 0.75 mg/dL 0.55-1.02 [facility] Work Phone: Comment on above: The validity of the calculated GFR & GFRAA in patients over 70 years has not been determined. Clinical correlation is essential. Serum or plasma low density lipoprotein (LDL) cholesterol measurement (mass/volume)on 06-18-2021 Cholesterol in LDL [Mass/Vol] 167 mg/dL 0-130 [facility] Work Phone: Serum or plasma urea nitroge n measurement (mass/volume)on 06-18-2021 Urea nitrogen [Mass/Vol] 23 mg/dL 7-18 [facility] Work Phone: Thin prep Papanicolaou smear with manual screeningon 06-18-2021 Thin prep Papanicolaou smear with manual screening 20 U/L 15-37 [facility] Work Phone: Thin prep Papanicolaou smear with manual screening 7 5-15 [facility] Work Phone: OBSOLETEon 01-08-2021 OBSOLETE Refill (FAMPFG) TARIK DUNHAM ([id number]) 1950 F Date Time Provider Department 01/08/21 AZUCENA VIEIRA FAMPFG During your visit today, we recorded the following information about you: Edgardo Patel RN 01/09/2021 3:23 PM Signed ATORVASTATIN 10 MG TABLET Patient needs an appointment and/or labs My Chart message sent to patient Allergies As of Date: 01/08/2021 (No Known Allergies) Date Reviewed: 12/09/2019 Reviewed by: Lela Damon RN - Fully Assessed Reason for Visit: Refill Request [94] Prescriptions as of 01/09/2021 - atorvastatin (LIPITOR) 10 mg tablet TAKE 1 TABLET BY MOUTH EVERY DAY - gabapentin (NEURONTIN) 300 mg capsule Take 1 capsule by mouth daily at bedtime for 90 days. - sucralfate (CARAFATE) 1 gram tablet as needed. - diltiazem (CARDIZEM) 30 mg tablet Take 30 mg by mouth four times daily. - pantoprazole DR (PROTONIX) 40 mg tablet Take 40 mg by mouth once daily. - lactase (LACTAID FAST ACT ORAL) Take by mouth. - conjugated estrogens (PREMARIN) vaginal cream use a small amount to lower vagina qhs twice weekly - MAGNESIUM ORAL Take by mouth. - ubidecarenone Q-10 (CO Q-10) 10 mg cap Take by mouth twice daily. - calcium carbonate-vitamin D (CALCIUM 500 WITH VITAMIN D) 500-125 mg-unit ORAL Tab Problem List As Of Date 01/08/2021 Noted Resolved DYSPHAGIA [787.2] ESOPHAGEAL REFLUX [K21.9] ABDOMINAL PAIN LLQ [R10.32] DIVERTICULOSIS OF COLON W/O BLEED [K57.30] INT HEMORRHOID W/O COMPL [K64.8] ACUTE GASTRITIS W/O HEMORRHAGE [K29.00] 08/05/2005 Porokeratosis [Q82.8] 03/26/2011 Trigger finger [M65.30] 04/27/2013 Hallux rigidus [M20.20] 05/09/2013 Radiculopathy, cervical region [M54.12] 08/24/2015 Carpal tunnel syndrome, right [G56.01] 07/23/2017 Screening for breast cancer [Z12.39] 11/18/2018 11/18/2018 H/O bilateral mastectomy [Z90.13] 11/18/2018 Encounter Status:Closed by EDGARDO PATEL on 01/09/21 [facility] OBSOLETEon 12-22-2020 OBSOLETE Refill (FAMPFG) TARIK DUNHAM ([id number]) 1950 F Date Time Provider Department 12/22/20 KAVON ARAUZ FAMPFG During your visit today, we recorded the following information about you: Lela Damon RN 12/24/2020 1:50 PM Signed Last seen by 12/09/19 Next appointment with none Current Labs 11/30/19 Date last rx given 09/28/20 Original ordering physician manjinder Day please advised he is due for OV and labs Isabel Gan 12/25/2020 3:30 PM Signed Patient was left a message to call and schedule an office visit. Allergies As of Date: 12/22/2020 (No Known Allergies) Date Reviewed: 12/09/2019 Reviewed by: Lela Damon RN - Fully Assessed Reason for Visit: Refill Request [94] Order(s):atorvastatin (LIPITOR) 10 mg tabletTAKE 1 TABLET BY MOUTH EVERY DAYDisp: 30 tabletRfl: 0 Prescriptions as of 12/25/2020 - atorvastatin (LIPITOR) 10 mg tablet TAKE 1 TABLET BY MOUTH EVERY DAY - gabapentin (NEURONTIN) 300 mg capsule Take 1 capsule by mouth daily at bedtime for 90 days. - sucralfate (CARAFATE) 1 gram tablet as needed. - diltiazem (CARDIZEM) 30 mg tablet Take 30 mg by mouth four times daily. - pantoprazole DR (PROTONIX) 40 mg tablet Take 40 mg by mouth once daily. - lactase (LACTAID FAST ACT ORAL) Take by mouth. - conjugated estrogens (PREMARIN) vaginal cream use a small amount to lower vagina qhs twice weekly - MAGNESIUM ORAL Take by mouth. - ubidecarenone Q-10 (CO Q-10) 10 mg cap Take by mouth twice daily. - calcium carbonate-vitamin D (CALCIUM 500 WITH VITAMIN D) 500-125 mg-unit ORAL Tab Problem List As Of Date 12/22/2020 Noted Resolved DYSPHAGIA [787.2] ESOPHAGEAL REFLUX [K21.9] ABDOMINAL PAIN LLQ [R10.32] DIVERTICULOSIS OF COLON W/O BLEED [K57.30] INT HEMORRHOID W/O COMPL [K64.8] ACUTE GASTRITIS W/O HEMORRHAGE [K29.00] 08/05/2005 Porokeratosis [Q82.8] 03/26/2011 Trigger finger [M65.30] 04/27/2013 Hallux rigidus [M20.20] 05/09/2013 Radiculopathy, cervical region [M54.12] 08/24/2015 Carpal tunnel syndrome, right [G56.01] 07/23/2017 Screening for breast cancer [Z12.39] 11/18/2018 11/18/2018 H/O bilateral mastectomy [Z90.13] 11/18/2018 Prescriptions ordered this encounter Disp Refills Start End ATORVASTATIN 10 MG TABLET 30 t* 0 12/25/2020 Cmt: NO FURTHER REFILLS, OFFICE VISIT AND/OR LABS REQUIRED Sig: TAKE 1 TABLET BY MOUTH EVERY DAY Medications Discontinued During This Encounter Prescriptions - atorvastatin (LIPITOR) 10 mg tablet (Discontinued) TAKE 1 TABLET BY MOUTH EVERY DAY Encounter Status:Closed by [facility]CENA [facility] ([id number]) 1950 F Date Time Provider Department 11/22/20 KAVON ARAUZ [facility] During your visit today, we recorded the following information about you: Miguelina Menard 12/13/2020 10:15 AM Addendum Left message for patient to call back to schedule her annual physical. Allergies As of Date: 11/22/2020 (No Known Allergies) Date Reviewed: 12/09/2019 Reviewed by: Lela Damon RN - Fully Assessed Reason for Visit: Medicare Wellness Exam [5780] Prescriptions as of 11/22/2020 Sig: ATORVASTATIN 10 MG TABLET TAKE 1 TABLET BY MOUTH EVERY * GABAPENTIN 300 MG CAPSULE Take 1 capsule by mouth daily* SUCRALFATE 1 GRAM TABLET as needed. DILTIAZEM 30 MG TABLET Take 30 mg by mouth four time* PANTOPRAZOLE 40 MG TABLET,DEL* Take 40 mg by mouth once fausto* LACTAID FAST ACT ORAL Take by mouth. CONJUGATED ESTROGENS 0.625 MG* use a small amount to lower v* MAGNESIUM ORAL Take by mouth. COENZYME Q10 10 MG CAPSULE Take by mouth twice daily. * CALCIUM 500 WITH VITAMIN D2 5* Problem List As Of Date 11/22/2020 Noted Resolved DYSPHAGIA [787.2] ESOPHAGEAL REFLUX [K21.9] ABDOMINAL PAIN LLQ [R10.32] DIVERTICULOSIS OF COLON W/O BLEED [K57.30] INT HEMORRHOID W/O COMPL [K64.8] ACUTE GASTRITIS W/O HEMORRHAGE [K29.00] 08/05/2005 Porokeratosis [Q82.8] 03/26/2011 Trigger finger [M65.30] 04/27/2013 Hallux rigidus [M20.20] 05/09/2013 Radiculopathy, cervical region [M54.12] 08/24/2015 Carpal tunnel syndrome, right [G56.01] 07/23/2017 Screening for breast cancer [Z12.39] 11/18/2018 11/18/2018 H/O bilateral mastectomy [Z90.13] 11/18/2018 Encounter Status:Closed by MIGUELINA MENARD on 11/22/20 [facility] 09-27-2020 [facility] Telephone ([facility]) TARIK DUNHAM ([id number]) 1950 F Date Time Provider Department 09/27/20 AZUCENA VIEIRA [facility] During your visit today, we recorded the following information about you: Laverne Royal LPN 11/08/2020 3:22 PM Signed Error erroneous message. Kavon Arauz 09/28/2020 6:50 AM Signed sergei Damon RN 10/31/2020 1:21 PM Signed I am unable to close encounter, because it says you have an incomplete note. Please follow up. Thanks Allergies As of Date: 09/27/2020 (No Known Allergies) Date Reviewed: 12/09/2019 Reviewed by: Lela Damon RN - Fully Assessed Reason for Visit: Refill Request [94] Refill Request [94] Refill Request [94] Order(s):atorvastatin (LIPITOR) 10 mg tabletTAKE 1 TABLET BY MOUTH EVERY DAYDisp: 90 tabletRfl: 0 Prescriptions as of 09/27/2020 Sig: ATORVASTATIN 10 MG TABLET TAKE 1 TABLET BY MOUTH EVERY * GABAPENTIN 300 MG CAPSULE Take 1 capsule by mouth daily* SUCRALFATE 1 GRAM TABLET as needed. DILTIAZEM 30 MG TABLET Take 30 mg by mouth four time* PANTOPRAZOLE 40 MG TABLET,DEL* Take 40 mg by mouth once fausto* LACTAID FAST ACT ORAL Take by mouth. CONJUGATED ESTROGENS 0.625 MG* use a small amount to lower v* MAGNESIUM ORAL Take by mouth. COENZYME Q10 10 MG CAPSULE Take by mouth twice daily. * CALCIUM 500 WITH VITAMIN D2 5* Problem List As Of Date 09/27/2020 Noted Resolved DYSPHAGIA [787.2] ESOPHAGEAL REFLUX [K21.9] ABDOMINAL PAIN LLQ [R10.32] DIVERTICULOSIS OF COLON W/O BLEED [K57.30] INT HEMORRHOID W/O COMPL [K64.8] ACUTE GASTRITIS W/O HEMORRHAGE [K29.00] 08/05/2005 Porokeratosis [Q82.8] 03/26/2011 Trigger finger [M65.30] 04/27/2013 Hallux rigidus [M20.20] 05/09/2013 Radiculopathy, cervical region [M54.12] 08/24/2015 Carpal tunnel syndrome, right [G56.01] 07/23/2017 Screening for breast cancer [Z12.39] 11/18/2018 11/18/2018 H/O bilateral mastectomy [Z90.13] 11/18/2018 Prescriptions ordered this encounter Disp Refills Start End ATORVASTATIN 10 MG TABLET 90 t* 0 09/28/2020 Sig: TAKE 1 TABLET BY MOUTH EVERY DAY Medications Discontinued During This Encounter Prescriptions - atorvastatin (LIPITOR) 10 mg tablet (Discontinued) Take 1 tablet by mouth once daily. Encounter Status:Closed by CHIDI MURRAY on 11/09/20 [facility] OBSOLETEon 04-19-2020 OBSOLETE Refill (FAMPFG) TARIK DUNHAM ([id number]) 1950 F Date Time Provider Department 04/19/20 KAVON ARAUZ FAMPFG During your visit today, we recorded the following information about you: Maile Colon 04/19/2020 3:55 PM Signed New Rx needed. Please advise Maile Colon 04/19/2020 3:55 PM Signed Requesting 90 day supply Allergies As of Date: 04/19/2020 (No Known Allergies) Date Reviewed: 12/09/2019 Reviewed by: Lela Damon RN - Fully Assessed Reason for Visit: Refill Request [94] Order(s):atorvastatin (LIPITOR) 10 mg tabletTake 1 tablet by mouth once daily.Disp: 90 tabletRfl: 1 Prescriptions as of 04/19/2020 Sig: ATORVASTATIN 10 MG TABLET Take 1 tablet by mouth once d* GABAPENTIN 300 MG CAPSULE Take 1 capsule by mouth daily* SUCRALFATE 1 GRAM TABLET as needed. DILTIAZEM 30 MG TABLET Take 30 mg by mouth four time* PANTOPRAZOLE 40 MG TABLET,DEL* Take 40 mg by mouth once fausto* LACTAID FAST ACT ORAL Take by mouth. CONJUGATED ESTROGENS 0.625 MG* use a small amount to lower v* MAGNESIUM ORAL Take by mouth. COENZYME Q10 10 MG CAPSULE Take by mouth twice daily. * CALCIUM 500 WITH VITAMIN D2 5* Problem List As Of Date 04/19/2020 Noted Resolved DYSPHAGIA [787.2] ESOPHAGEAL REFLUX [K21.9] ABDOMINAL PAIN LLQ [R10.32] More... DIVERTICULOSIS OF COLON W/O BLEED [K57.30] INT HEMORRHOID W/O COMPL [K64.8] ACUTE GASTRITIS W/O HEMORRHAGE [K29.00] 08/05/2005 Porokeratosis [Q82.8] 03/26/2011 Trigger finger [M65.30] 04/27/2013 Hallux rigidus [M20.20] 05/09/2013 Radiculopathy, cervical region [M54.12] 08/24/2015 Carpal tunnel syndrome, right [G56.01] 07/23/2017 Screening for breast cancer [Z12.39] 11/18/2018 11/18/2018 H/O bilateral mastectomy [Z90.13] 11/18/2018 Prescriptions ordered this encounter Disp Refills Start End ATORVASTATIN 10 MG TABLET 90 t* 1 04/20/2020 Route: ORAL Sig: Take 1 tablet by mouth once daily. Medications Discontinued During This Encounter Prescriptions - atorvastatin (LIPITOR) 10 mg tablet (Discontinued) Take 10 mg by mouth once daily. Encounter Status:Closed by AZUCENA VIEIRA APRN on 04/20/20 [facility] Vital Signs Date Time Vital Sign Value Performing Clinician Facility 03-24-2025 10:27-0400 Body height 165.[address] Garo Steele MD Work Phone: 1(545)857-704476 [place] [address] 03-24-2025 10:27-0400 Body temperature 99 [degF] Dr. Garo Steele MD Work Phone: 4(409)018-450176 [place] [address] 03-24-2025 10:27-0400 Diastolic blood pressure 76 mm[Hg] Dr. Garo Steele MD Work Phone: 2(390)948-738276 [place] [address] 03-24-2025 10:27-0400 Heart rate 63 /min Dr. Garo Steele MD Work Phone: 6(553)942-586976 [place] [address] 03-24-2025 10:27-0400 Respiratory rate 18 /min Dr. Garo Steele MD Work Phone: 2(682)600-410976 [place] [address] 03-24-2025 10:27-0400 SaO2% (BldA) [Mass fraction] 96 % Dr. Garo Steele MD Work Phone: [facility] 03-24-2025 10:27-0400 Systolic blood pressure 119 mm[Hg] Dr. Garo Steele MD Work Phone: [facility] 03-17-2025 10:23-0400 Body height 165.[address] Garo Steele MD Work Phone: [facility] 03-17-2025 10:23-0400 Body temperature 98.1 [degF] Dr. Garo Steele MD Work Phone: [facility] 03-17-2025 10:23-0400 Diastolic blood pressure 63 mm[Hg] Dr. Garo Steele MD Work Phone: 8(610)260-424276 [place] [address] 03-17-2025 10:23-0400 Heart rate 59 /min Dr. Garo Steele MD Work Phone: 2(839)866-669176 [place] [address] 03-17-2025 10:23-0400 Respiratory rate 18 /min Dr. Garo Steele MD Work Phone: 1(057)174-491676 [place] [address] 03-17-2025 10:23-0400 SaO2% (BldA) [Mass fraction] 96 % Dr. Garo Steele MD Work Phone: 6(630)661-291976 [place] [address] 03-17-2025 10:23-0400 Systolic blood pressure 128 mm[Hg] Dr. Garo Steele MD Work Phone: [facility] 03-15-2025 09:30-0400 Body height 167.6 cm Altaf Metz MD Work Phone: [facility] 03-15-2025 09:30-0400 Body mass index (BMI) [Ratio] 22.6 kg/m2 Altaf Metz MD Work Phone: [facility] 03-15-2025 09:30-0400 Body weight 63.5 kg Altaf Metz MD Work Phone: [facility] 03-14-2025 08:40-0400 Body temperature 97.3 [degF] Dr. Garo Steele MD Work Phone: 4(715)418-772576 [place] [address] 03-14-2025 08:40-0400 Diastolic blood pressure 58 mm[Hg] Dr. Garo Steele MD Work Phone: 7(560)905-072621 [place] [address] 03-14-2025 08:40-0400 Heart rate 51 /min Dr. Garo Steele MD Work Phone: 2(538)199-839021 [place] [address] 03-14-2025 08:40-0400 SaO2% (BldA) [Mass fraction] 96 % Dr. Garo Steele MD Work Phone: 6(170)367-467021 [place] [address] 03-14-2025 08:40-0400 Systolic blood pressure 148 mm[Hg] Dr. Garo Steele MD Work Phone: 8(582)165-165521 [place] [address] 03-14-2025 08:35-0400 Respiratory rate 16 /min Dr. Garo Steele MD Work Phone: 9(631)126-653421 [place] [address] 03-14-2025 06:25-0400 Body height 165.[address] Garo Steele MD Work Phone: 8(549)837-291621 [place] [address] 03-14-2025 06:25-0400 Body mass index (BMI) [Ratio] 24.7 kg/m2 Dr. Garo Steele MD Work Phone: 2(356)195-947621 [place] [address] 03-14-2025 06:25-0400 Body weight 67.[address] Garo Steele MD Work Phone: 3(190)957-256221 [place] [address] 12-09-2024 12:25-0400 Body temperature 72 [degF] Dr. Garo Steele MD Work Phone: 4(548)768-333721 [place] [address] 12-09-2024 12:25-0400 Diastolic blood pressure 71 mm[Hg] Dr. Garo Steele MD Work Phone: 4(280)464-873321 [place] [address] 12-09-2024 12:25-0400 Heart rate 18 /min Dr. Garo Steele MD Work Phone: 0(354)546-594121 [place] [address] 12-09-2024 12:25-0400 Respiratory rate 18 /min Dr. Garo Steele MD Work Phone: 0(622)045-811221 [place] [address] 12-09-2024 12:25-0400 SaO2% (BldA) [Mass fraction] 99 % Dr. Garo Steele MD Work Phone: 9(245)554-527621 [place] [address] 12-09-2024 12:25-0400 Systolic blood pressure 132 mm[Hg] Dr. Garo Steele MD Work Phone: 9(869)307-072821 [place] [address] 12-09-2024 11:02-0400 Body height 165.[address] Garo Steele MD Work Phone: 5(780)798-881321 [place] [address] 12-09-2024 11:02-0400 Body mass index (BMI) [Ratio] 24.5 kg/m2 Dr. Garo Steele MD Work Phone: 0(321)614-693621 [place] [address] 12-09-2024 11:02-0400 Body weight [address] Garo Steele MD Work Phone: 7(600)425-548421 [place] [address] 11-14-2024 09:18-0400 Body height 165.[address] Garo Steele MD Work Phone: 1(265)363-023221 [place] [address] 11-14-2024 09:18-0400 Body mass index (BMI) [Ratio] 24.6 kg/m2 Dr. Garo Steele MD Work Phone: 3(857)965-662221 [place] [address] 11-14-2024 09:18-0400 Body weight 67.[address] Garo Steele MD Work Phone: 2(715)300-560221 [place] [address] 11-14-2024 09:18-0400 Diastolic blood pressure 71 mm[Hg] Dr. Garo Steele MD Work Phone: 7(605)361-248021 [place] [address] 11-14-2024 09:18-0400 Heart rate 62 /min Dr. Garo Steele MD Work Phone: 3(152)997-929821 [place] [address] 11-14-2024 09:18-0400 SaO2% (BldA) [Mass fraction] 96 % Dr. Garo Steele MD Work Phone: 3(731)787-759321 [place] [address] 11-14-2024 09:18-0400 Systolic blood pressure 119 mm[Hg] Dr. Garo Steele MD Work Phone: [facility] 11-14-2024 06:35-0400 Body mass index (BMI) [Ratio] 24.6 kg/m2 Dr. Garo Steele MD Work Phone: [facility] 11-14-2024 06:35-0400 Body weight 67.[address] Garo Steele MD Work Phone: [facility] 11-14-2024 06:35-0400 Diastolic blood pressure 66 mm[Hg] Dr. Garo Steele MD Work Phone: [facility] 11-14-2024 06:35-0400 Heart rate 68 /min Dr. Garo Steele MD Work Phone: [facility] 11-14-2024 06:35-0400 Respiratory rate 18 /min Dr. Garo Steele MD Work Phone: [facility] 11-14-2024 06:35-0400 SaO2% (BldA) [Mass fraction] 98 % Dr. Garo Steele MD Work Phone: [facility] 11-14-2024 06:35-0400 Systolic blood pressure 102 mm[Hg] Dr. Garo Steele MD Work Phone: [facility] 10-28-2024 08:04-0400 Body height 167.6 cm Nabil Kim [employer] SCREEN L[employer]OUT DRAFTER.CYBER ENGINEER Work Phone: [facility] 10-28-2024 08:04-0400 Body mass index (BMI) [Ratio] 23.63 kg/m2 Nabil Kim [employer]ILK SCREEN LAYOUT DRAFTER.CYBER ENGINEER Work Phone: [facility] 10-28-2024 08:04-0400 Body temperature 98.1 [degF] Nabil Kim [employer]ILK SCREEN LAYOUT DRAFTER.CYBER ENGINEER Work Phone: [facility] 10-28-2024 08:04-0400 Body weight 66.4 kg Nabil Kim [employer]IL[employer] SCREEN LAYOUT DRAFTER.CYBER ENGINEER Work Phone: [facility] 10-28-2024 08:04-0400 Diastolic blood pressure 64 mm[Hg] Nabil Kim [employer]ILK SCREEN LAYOUT DRAFTER.CYBER ENGINEER Work Phone: [facility] 10-28-2024 08:04-0400 Heart rate 63 /min Kinsmanwanda Kim [employer] SCREEN LAYOUT DRAFTER.CYBER ENGINEER Work Phone: [facility] 10-28-2024 08:04-0400 SaO2% (BldA) [Mass fraction] 95 % Nabilwanda Kim [employer]ILK SCREEN LAYOUT DRAFTER.CYBER ENGINEER Work Phone: [facility] 10-28-2024 08:04-0400 Systolic blood pressure 113 mm[Hg] Nabilwanda Kim [employer]ILK SCREEN LAYOUT DRAFTER.CYBER ENGINEER Work Phone: [facility] 10-13-2024 11:10-0400 Body height 165.1 cm Garo Steele MD Work Phone: [facility] 10-13-2024 11:10-0400 Body mass index (BMI) [Ratio] 24.51 kg/m2 Garo Steele MD Work Phone: [facility] 10-13-2024 11:10-0400 Body weight 66.8 kg Garo Steele MD Work Phone: [facility] 10-13-2024 11:10-0400 Diastolic blood pressure 60 mm[Hg] Garo Steele MD Work Phone: [facility] 10-13-2024 11:10-0400 Heart rate 64 /min Garo Steele MD Work Phone: [facility] 10-13-2024 11:10-0400 Respiratory rate 16 /min Garo Steele MD Work Phone: [facility] 10-13-2024 11:10-0400 Systolic blood pressure 102 mm[Hg] Garo Steele MD Work Phone: [facility] 04-15-2024 15:30-0400 Body height 167.6 cm Garo Steele MD Work Phone: [facility] 04-15-2024 15:30-0400 Body mass index (BMI) [Ratio] 24.13 kg/m2 Garo Steele MD Work Phone: [facility] 04-15-2024 15:30-0400 Body temperature 97.3 [degF] Garo Steele MD Work Phone: [facility] 04-15-2024 15:30-0400 Body weight 67.8 kg Garo Steele MD Work Phone: [facility] 04-15-2024 15:30-0400 Diastolic blood pressure 64 mm[Hg] Garo Steele MD Work Phone: [facility] 04-15-2024 15:30-0400 Heart rate 63 /min Garo Steele MD Work Phone: [facility] 04-15-2024 15:30-0400 Respiratory rate 12 /min Garo Steele MD Work Phone: [facility] 04-15-2024 15:30-0400 SaO2% (BldA) [Mass fraction] 96 % Garo Steele MD Work Phone: [facility] 04-15-2024 15:30-0400 Systolic blood pressure 114 mm[Hg] Garo Steele MD Work Phone: [facility] 04-12-2024 11:28-0400 Body mass index (BMI) [Ratio] 24.2 kg/m2 Lucille Ashley S[employer] SCREEN LAYOUT DRAFTER.CYBER ENGINEER Work Phone: [facility] 04-12-2024 11:28-0400 Body temperature 97.7 [degF] Lucille Ashley SILK SCREEN LAYOUT DRAFTER.CYBER ENGINEER Work Phone: [facility] 04-12-2024 11:28-0400 Body weight 68 kg Lucille Ashley SILK SCREEN LAYOUT DRAFTER.CYBER ENGINEER Work Phone: [facility] 04-12-2024 11:28-0400 Diastolic blood pressure 83 mm[Hg] Lucille Ashley SILK SCREEN LAYOUT DRAFTER.CYBER ENGINEER Work Phone: [facility] 04-12-2024 11:28-0400 Heart rate 61 /min Lucille Ashley SILK SCREEN LAYOUT DRAFTER.CYBER ENGINEER Work Phone: [facility] 04-12-2024 11:28-0400 Respiratory rate 18 /min Lucillenelia Ashley SILK SCREEN LAYOUT DRAFTER.CYBER ENGINEER Work Phone: [facility] 04-12-2024 11:28-0400 SaO2% (BldA) [Mass fraction] 99 % Lucille Ashley SILK SCREEN LAYOUT DRAFTER.CYBER ENGINEER Work Phone: [facility] 04-12-2024 11:28-0400 Systolic blood pressure 133 mm[Hg] Lucillenelia Carlosgs SILK SCREEN LAYOUT DRAFTER.CYBER ENGINEER Work Phone: [facility] 03-30-2024 10:39-0400 Body height 167.6 cm Altaf Metz MD Work Phone: [facility] 03-30-2024 10:39-0400 Body mass index (BMI) [Ratio] 22.6 kg/m2 Altaf Metz MD Work Phone: [facility] 03-30-2024 10:39-0400 Body weight 63.5 kg Altaf Metz MD Work Phone: [facility] 03-30-2024 10:39-0400 Diastolic blood pressure 69 mm[Hg] Altaf Metz MD Work Phone: [facility] 03-30-2024 10:39-0400 Heart rate 56 /min Altaf Metz MD Work Phone: [facility] 03-30-2024 10:39-0400 Systolic blood pressure 110 mm[Hg] Altaf Metz MD Work Phone: [facility] 02-08-2024 11:36-0400 Body temperature 98.6 [degF] Abner Hermosillo MD Work Phone: [facility] 02-08-2024 11:36-0400 Diastolic blood pressure 57 mm[Hg] Abner Hermosillo MD Work Phone: [facility] 02-08-2024 11:36-0400 Heart rate 57 /min Abner Hermosillo MD Work Phone: [facility] 02-08-2024 11:36-0400 Respiratory rate 16 /min Abner Hermosillo MD Work Phone: [facility] 02-08-2024 11:36-0400 SaO2% (BldA) [Mass fraction] 97 % Abner Hermosillo MD Work Phone: [facility] 02-08-2024 11:36-0400 Systolic blood pressure 122 mm[Hg] Abner Hermosillo MD Work Phone: [facility] 07-22-2023 08:41-0500 Body height 167.6 cm Altaf Metz MD Work Phone: [facility] 07-22-2023 08:41-0500 Body mass index (BMI) [Ratio] 22.6 kg/m2 Altaf Metz MD Work Phone: [facility] 07-22-2023 08:41-0500 Body weight 63.5 kg Altaf Metz MD Work Phone: [facility] 04-29-2023 08:42-0500 Body height 167.6 cm Nguyễn Manzanolio PA-C Work Phone: [facility] 04-29-2023 08:42-0500 Body mass index (BMI) [Ratio] 22.6 kg/m2 Nguyễn Ramosfiglio PA-C Work Phone: [facility] 04-29-2023 08:42-0500 Body weight 63.5 kg Nguyễn Ramosfiglio PA-C Work Phone: [facility] 04-29-2023 08:42-0500 Diastolic blood pressure 60 mm[Hg] Nguyễn Ramosfiglio PA-C Work Phone: [facility] 04-29-2023 08:42-0500 Systolic blood pressure 100 mm[Hg] Nguyễn Ramosfiglio PA-C Work Phone: [facility] 03-25-2023 09:50-0400 Diastolic blood pressure 63 mm[Hg] Altaf Metz MD Work Phone: [facility] 03-25-2023 09:50-0400 Systolic blood pressure 104 mm[Hg] Altaf Metz MD Work Phone: [facility] 03-25-2023 07:26-0400 Body temperature 98.71 [degF] Altaf Metz MD Work Phone: [facility] 03-25-2023 07:26-0400 Heart rate 64 /min Altaf Metz MD Work Phone: [facility] 03-25-2023 07:26-0400 Respiratory rate 16 /min Altaf Metz MD Work Phone: [facility] 03-25-2023 07:26-0400 SaO2% (BldA) [Mass fraction] 95 % Altaf Metz MD Work Phone: [facility] 03-24-2023 06:28-0400 Body height 167.6 cm Altaf Metz MD Work Phone: [facility] 03-24-2023 06:28-0400 Body mass index (BMI) [Ratio] 22.6 kg/m2 Altaf Metz MD Work Phone: [facility] 03-24-2023 06:28-0400 Body weight 63.5 kg Altaf Metz MD Work Phone: [facility] 02-06-2023 13:14-0400 Diastolic blood pressure 61 mm[Hg] Abner Hermosillo MD Work Phone: [facility] 02-06-2023 13:14-0400 Heart rate 65 /min Abner Hermosillo MD Work Phone: [facility] 02-06-2023 13:14-0400 Respiratory rate 16 /min Abner Hermosillo MD Work Phone: [facility] 02-06-2023 13:14-0400 SaO2% (BldA) [Mass fraction] 100 % Abner Hermosillo MD Work Phone: [facility] 02-06-2023 13:14-0400 Systolic blood pressure 123 mm[Hg] Abner Hermosillo MD Work Phone: [facility] 01-28-2023 08:53-0400 Body height 166.4 cm Altaf Metz MD Work Phone: [facility] 01-28-2023 08:53-0400 Body mass index (BMI) [Ratio] 22.94 kg/m2 Altaf Metz MD Work Phone: [facility] 01-28-2023 08:53-0400 Body weight 63.5 kg Altaf Metz MD Work Phone: [facility] 01-28-2023 08:53-0400 Diastolic blood pressure 76 mm[Hg] Altaf Metz MD Work Phone: [facility] 01-28-2023 08:53-0400 Systolic blood pressure 118 mm[Hg] Altaf Metz MD Work Phone: [facility] 12-29-2022 12:03-0400 Body height 167.6 cm Garo Steele MD Work Phone: [facility] 12-29-2022 12:03-0400 Body weight 65.77 kg Garo Steele MD Work Phone: [facility] 12-29-2022 12:03-0400 Diastolic blood pressure 58 mm[Hg] Garo Steele MD Work Phone: [facility] 12-29-2022 12:03-0400 Heart rate 64 /min Garo Steele MD Work Phone: [facility] 12-29-2022 12:03-0400 Respiratory rate 16 /min Garo Steele MD Work Phone: [facility] 12-29-2022 12:03-0400 Systolic blood pressure 106 mm[Hg] Garo Steele MD Work Phone: [facility] 11-21-2022 09:38-0400 Body temperature 97.3 [degF] Dr. Garo Steele Work Phone: [facility] 11-21-2022 09:38-0400 Body weight 65.[address] Garo Steele Work Phone: [facility] 11-21-2022 09:38-0400 Respiratory rate 18 /min Dr. aGro Steele Work Phone: [facility] 11-19-2022 11:36-0400 Body height 166.4 cm Altaf Metz MD Work Phone: [facility] 11-19-2022 11:36-0400 Body mass index (BMI) [Ratio] 22.94 kg/m2 Altaf Metz MD Work Phone: [facility] 11-19-2022 11:36-0400 Body weight 63.5 kg Altaf Metz MD Work Phone: [facility] 10-22-2022 11:40-0400 Body height 165.[address] Garo Steele Work Phone: [facility] 10-22-2022 11:40-0400 Body mass index (BMI) [Ratio] 23.9 kg/m2 Dr. Garo Steele Work Phone: [facility] 10-22-2022 11:40-0400 Body weight 65.[address] Garo Steele Work Phone: [facility] 10-22-2022 11:40-0400 Diastolic blood pressure 60 mm[Hg] Dr. Garo Steele Work Phone: [facility] 10-22-2022 11:40-0400 Heart rate 59 /min Dr. Garo Steele Work Phone: [facility] 10-22-2022 11:40-0400 Respiratory rate 16 /min Dr. Garo Steele Work Phone: [facility] 10-22-2022 11:40-0400 Systolic blood pressure 97 mm[Hg] Dr. Garo Steele Work Phone: [facility] 06-27-2022 13:41-0500 Body temperature 96.69 [degF] Garo Steele MD Work Phone: [facility] 06-27-2022 13:41-0500 Body weight 67.59 kg Garo Steele MD Work Phone: [facility] 06-27-2022 13:41-0500 Diastolic blood pressure 62 mm[Hg] Garo Steele MD Work Phone: [facility] 06-27-2022 13:41-0500 Heart rate 66 /min Garo Steele MD Work Phone: [facility] 06-27-2022 13:41-0500 Respiratory rate 18 /min Garo Steele MD Work Phone: [facility] 06-27-2022 13:41-0500 SaO2% (BldA) [Mass fraction] 96 % Garo Steele MD Work Phone: [facility] 06-27-2022 13:41-0500 Systolic blood pressure 112 mm[Hg] Garo Steele MD Work Phone: [facility] 02-21-2022 11:02-0400 Body temperature 98.2 [degF] Abner Hermosillo MD Work Phone: [facility] 02-21-2022 11:02-0400 Diastolic blood pressure 56 mm[Hg] Abner Hermosillo MD Work Phone: [facility] 02-21-2022 11:02-0400 Heart rate 60 /min Abner Hermosillo MD Work Phone: [facility] 02-21-2022 11:02-0400 Respiratory rate 16 /min Abner Hermosillo MD Work Phone: [facility] 02-21-2022 11:02-0400 SaO2% (BldA) [Mass fraction] 96 % Abner Hermosillo MD Work Phone: 9(848)982-517596 [address] 02-21-2022 11:02-0400 Systolic blood pressure 110 mm[Hg] Abner Hermosillo MD Work Phone: 7(397)883-306141 [place] [address] 02-11-2022 13:10-0400 Diastolic blood pressure 60 mm[Hg] Abner Hermosillo MD Work Phone: 0(121)377-705441 [place] [address] 02-11-2022 13:10-0400 Heart rate 87 /min Abner Hermosillo MD Work Phone: 3(385)018-589741 [place] [address] 02-11-2022 13:10-0400 Respiratory rate 18 /min Abner Hermosillo MD Work Phone: 2(998)141-070641 [place] [address] 02-11-2022 13:10-0400 SaO2% (BldA) [Mass fraction] 98 % Abner Hermosillo MD Work Phone: 2(130)700-111641 [place] [address] 02-11-2022 13:10-0400 Systolic blood pressure 125 mm[Hg] Abner Hermosillo MD Work Phone: 7(227)635-512941 [place] [address] 02-11-2022 12:52-0400 Body temperature 97.5 [degF] Abner Hermosillo MD Work Phone: 3(119)463-645641 [place] [address] 02-11-2022 05:24-0400 Body height 167.6 cm Abner Hermosillo MD Work Phone: 6(543)389-533041 [place] [address] 02-11-2022 05:24-0400 Body mass index (BMI) [Ratio] 24.37 kg/m2 Abner Hermosillo MD Work Phone: 8(869)208-232741 [place] [address] 02-11-2022 05:24-0400 Body weight 68.49 kg Abner Hermosillo MD Work Phone: 4(400)100-736541 [place] [address] 01-27-2022 11:31-0400 Body mass index (BMI) [Ratio] 24.34 kg/m2 Abner Hermosillo MD Work Phone: 8(954)449-835121 [place] [address] 01-27-2022 11:31-0400 Body temperature 98.4 [degF] Abner Hermosillo MD Work Phone: 4(825)955-952321 [place] [address] 01-27-2022 11:31-0400 Body weight 69.45 kg Abner Hermosillo MD Work Phone: 8(220)660-902896 [address] 01-27-2022 11:31-0400 Diastolic blood pressure 60 mm[Hg] Abner Hermosillo MD Work Phone: 6(929)372-434396 [address] 01-27-2022 11:31-0400 Heart rate 62 /min Abner Hermosillo MD Work Phone: 1(542)973-603996 [address] 01-27-2022 11:31-0400 Respiratory rate 16 /min Abner Hermosillo MD Work Phone: 4(587)802-994696 [address] 01-27-2022 11:31-0400 SaO2% (BldA) [Mass fraction] 95 % Abner Hermosillo MD Work Phone: 9(841)546-107396 [address] 01-27-2022 11:31-0400 Systolic blood pressure 123 mm[Hg] Abner Hermosillo MD Work Phone: [facility] 12-03-2021 08:53-0400 Body height 165.[address] Geovanni Foreman Work Phone: [facility] Work Phone: 12-03-2021 08:53-0400 Body mass index (BMI) [Ratio] 25 kg/m2 Dr. Geovanni Foreman Work Phone: [facility] Work Phone: 12-03-2021 08:53-0400 Body temperature 97.6 [degF] Dr. Geovanni Foreman Work Phone: [facility] [facility] Work Phone: 12-03-2021 08:53-0400 Body weight 68.[address] Geovanni Foreman Work Phone: [facility] Work Phone: 12-03-2021 08:53-0400 Diastolic blood pressure 71 mm[Hg] Dr. Geovanni Foreman Work Phone: [facility] Work Phone: 12-03-2021 08:53-0400 Heart rate 62 /min Dr. Geovanni Foreman Work Phone: [facility] Work Phone: 12-03-2021 08:53-0400 Respiratory rate 16 /min Dr. Geovanni Foreman Work Phone: [facility] Work Phone: 12-03-2021 08:53-0400 SaO2% (BldA) [Mass fraction] 98 % Dr. Geovanni Foreman Work Phone: [facility] Work Phone: 12-03-2021 08:53-0400 Systolic blood pressure 111 mm[Hg] Dr. Geovanni Foreman Work Phone: [facility] Work Phone: 11-12-2021 10:04-0400 Body height 165.[address] Geovanni Foreman Work Phone: [facility] Work Phone: 11-12-2021 10:04-0400 Body mass index (BMI) [Ratio] 25.4 kg/m2 Dr. Geovanni Foreman Work Phone: [facility] Work Phone: 11-12-2021 10:04-0400 Body temperature 97.9 [degF] Dr. Geovanni Foreman Work Phone: [facility] Work Phone: 11-12-2021 10:04-0400 Body weight 69.[address] Geovanni Foreman Work Phone: [facility] Work Phone: 11-12-2021 10:04-0400 Diastolic blood pressure 64 mm[Hg] Dr. Geovanni Foreman Work Phone: [facility] Work Phone: 11-12-2021 10:04-0400 Heart rate 69 /min Dr. Geovanni Foreman Work Phone: [facility] Work Phone: 11-12-2021 10:04-0400 Respiratory rate 14 /min Dr. Geovanni Foreman Work Phone: [facility] Work Phone: 11-12-2021 10:04-0400 SaO2% (BldA) [Mass fraction] 97 % Dr. Geovanni Foreman Work Phone: [facility] Work Phone: 11-12-2021 10:04-0400 Systolic blood pressure 108 mm[Hg] Dr. Geovanni Foreman Work Phone: [facility] Work Phone: 11-12-2021 10:04-0400 Body height 165.[address] Geovanni Foreman Work Phone: [facility] Work Phone: 11-12-2021 10:04-0400 Body mass index (BMI) [Ratio] 25.4 kg/m2 Dr. Geovanni Foreman Work Phone: [facility] Work Phone: 11-12-2021 10:04-0400 Body temperature 97.9 [degF] Dr. Geovanni Foreman Work Phone: [facility] Work Phone: 11-12-2021 10:04-0400 Body weight 69.[address] Geovanni Foreman Work Phone: [facility] Work Phone: 11-12-2021 10:04-0400 Diastolic blood pressure 64 mm[Hg] Dr. Geovanni Foreman Work Phone: [facility] Work Phone: 11-12-2021 10:04-0400 Heart rate 69 /min Dr. Geovanni Foreman Work Phone: [facility] Work Phone: 11-12-2021 10:04-0400 Respiratory rate 14 /min Dr. Geovanni Foreman Work Phone: [facility] Work Phone: 11-12-2021 10:04-0400 SaO2% (BldA) [Mass fraction] 97 % Dr. Geovanni Foreman Work Phone: [facility] Work Phone: 11-12-2021 10:04-0400 Systolic blood pressure 108 mm[Hg] Dr. Geovanni Foreman Work Phone: [facility] Work Phone: 10-04-2021 12:55-0400 Body temperature 98.1 [degF] Abner Hermosillo MD Work Phone: [facility] 10-04-2021 12:55-0400 Diastolic blood pressure 74 mm[Hg] Abner Hermosillo MD Work Phone: [facility] 10-04-2021 12:55-0400 Heart rate 64 /min Abner Hermosillo MD Work Phone: [facility] 10-04-2021 12:55-0400 Respiratory rate 16 /min Abner Hermosillo MD Work Phone: [facility] 10-04-2021 12:55-0400 SaO2% (BldA) [Mass fraction] 96 % Abner Hermosillo MD Work Phone: [facility] 10-04-2021 12:55-0400 Systolic blood pressure 142 mm[Hg] Abner Hermosillo MD Work Phone: [facility] Encounters Encounter Date Encounter Type Care Provider Facility Start: 04-18-2025 End: 04-18-2025 ambulatory GARO STEELE Facility:[facility] Start: 04-18-2025 Patient encounter procedure GARO STEELE [facility] Start: 04-11-2025 End: 04-11-2025 ambulatory Jimmie Newell Facility:[facility] Start: 03-28-2025 End: 03-28-2025 Patient encounter procedure Jessie LOPEZ -[facility] Work Phone: Start: 03-28-2025 End: 03-28-[address] Garo Steele MD Work Phone: -[facility] Start: 03-24-2025 End: 03-24-[address] Jimmie Newell MD -[facility] Work Phone: Start: 03-24-2025 End: 03-24-[address] Garo Steele MD Work Phone: [facility] Start: 03-17-2025 End: 03-17-[address] Jimmie Nweell MD -[facility] Work Phone: Start: 03-17-2025 End: 03-17-[address] Garo Steele MD Work Phone: [facility] Start: 03-15-2025 ambulatory GARO STEELE Faci lity:[facility] Start: 03-15-2025 End: 03-15-2025 Office outpatient visit 25 minutes Altaf Metz MD Work Phone: [facility] [place] Comment on above: Left hip pain (Prima ry Dx); Arthritis of left hip Start: 03-15-2025 End: 03-15-2025 Subsequent hospital visit by physician Jaylan Gan PA-C Work Phone: [facility] Comment on above: Left hip pain Start: 03-15-2025 End: 03-15-2025 ambulatory JAYLAN [facility] Start: 03-14-2025 ambulatory Jessy Roman [facility] Start: 03-14-2025 Non-patient / Non-visit Jessie Swanson Rosanne -[facility] Start: 03-14-2025 End: 03-14-2025 Admission to same day surgery center Dr. Jimmie Newell MD [facility] Start: 03-14-2025 End: 03-14-[address] Garo Steele MD Work Phone: [facility] Start: 03-02-2025 End: 03-02-2025 ambulatory [facility]ARO STEELE [facility] Start: 02-06-2025 End: 02-06-2025 Telephone encounter Altaf Metz MD Work Phone: [facility] Comment on above: Other (Dental prophy laxis) Start: 01-31-2025 End: 01-31-[address] Clay Jean MD -[facility] Start: 01-31-2025 End: 01-31-[address] Garo Steele MD Work Phone: [facility] Start: 01-27-2025 End: 01-30-2025 ambulatory Garo Steele MD Work Phone: [facility] Comment on above: Allied Health Visit (Medication Adherence Outreach ) Allied Health Visit (Medication Adherence) Start: 01-23-2025 End: 01-23-2025 Patient encounter procedure Le IBANEZ -[facility] Work Phone: Start: 01-23-2025 End: 01-23-[address] Garo Steele MD Work Phone: -[facility] Start: 01-11-2025 End: 01-11-2025 ambulatory Garo Steele MD Work Phone: [facility] Comment on above: Allied Health Visit (Medication Adherence Outreach ) Start: 01-03-2025 End: 01-03-2025 Patient encounter procedure Le IBANEZ -[facility] Work Phone: Start: 01-03-2025 End: 01-03-[address] Garo Steele MD Work Phone: -[facility] Start: 12-29-2024 End: 12-29-[address] Garo Steele MD Work Phone: -Radiology [facility] Start: 12-29-2024 End: 12-29-2024 Patient encounter procedure Le Harris SENIOR MANAGER [facility] -Radiology [facility] Work Phone: Start: 12-29-2024 End: 12-29-2024 ambulatory Leher Harris Facility:[facility] Start: 12-12-2024 End: 12-12-[address] Garo Steele MD Work Phone: -Physical Therapy Start: 12-12-2024 End: 12-12-[address] Garo Steele MD -Physical Therapy Work Phone: Start: 12-09-2024 Non-patient / Non-visit Gomez Saba nd DO -[facility] Start: 12-09-2024 End: 12-09-2024 Admission to same day surgery center Gomez Reynoso DO -Endoscopy Work Phone: Start: 12-09-2024 End: 12-09-[address] Garo Steele MD Work Phone: -Endoscopy Start: 11-30-[address] Jessie Steele MD -Physical Therapy Work Phone: Start: 11-25-2024 ambulatory Gomez Hollywood Facility :[facility] Start: 11-14-2024 End: 11-14-2024 Patient encounter procedure Dangelo Cevallos SENIOR MANAGER [facility] -[place] Work Phone: Start: 11-14-2024 End: 11-14-[address] Garo Steele MD Work Phone: [facility] Work Phone: Start: 11-02-[address] Jessie Steele MD -Physical Therapy Work Phone: Start: 10-28-2024 End: 10-28-2024 Patient encounter procedure Nabil Kim APRN.CYBER ENGINEER Work Phone: Hematology/Oncology Start: 10-28-2024 End: 10-28-2024 ambulatory Nabil Kim APRN.CYBER ENGINEER Work Phone: Hematology/Oncology Comment on above: Ductal carcinoma in situ (DCIS) of right breast (Primary Dx); H/O bilateral mastectomy Start: 10-19-2024 End: 10-19-2024 Follow-up encounter Garo Steele MD Work Phone: [facility] [place] Start: 10-18-2024 End: 10-21-2024 Telephone encounter Garo Steele MD Work Phone: [facility] [place] Comment on above: Results Start: 10-15-2024 End: 10-15-2024 Follow-up encounter Garo Steele MD Work Phone: [facility] [place] Start: 10-14-2024 End: 10-14-2024 ambulatory GARO STEELE Facility:[facility] Start: 10-13-2024 ambulatory GARO STEELE Faci lity:[facility] Start: 10-13-2024 End: 10-13-2024 Subsequent hospital visit by physician [facility] [place] Work Phone: Radiology Comment on above: Chronic pain of both shoulders [M25.511, G89.29, M25.512] Start: 10-13-2024 End: 10-13-2024 Office outpatient visit 25 minutes Garo Steele MD Work Phone: [facility] [place] Comment on above: Chronic pain of both shoulders (Primary Dx); Primary osteoarthritis of right knee; Carpal tunnel syndrome on right; Neuropathic pain, leg, right; Hyperlipidemia, unspecified hyperlipidemia type; Unilateral primary osteoarthritis, left hip Start: 10-13-2024 End: 10-13-2024 ambulatory GARO STEELE Facility:[facility] Start: 07-25-2024 End: 07-28-2024 Refill Altaf Metz MD Work Phone: [facility] [place] Start: 06-30-2024 End: 06-30-2024 ambulatory Atilio Lanierate [facility] Start: 06-30-2024 End: 06-30-2024 Patient encounter procedure Atilio Tracey [facility] Comment on above: Population Health Na vigation Outreach ([employer] AWV Initiative) Start: 05-20-2024 ambulatory Clay Ted Facility:[facility] Start: 05-20-2024 End: 05-20-2024 ambulatory Dangelo Cevallos SENIOR MANAGER [facility] Facility:[facility] Start: 04-15-2024 End: 04-15-2024 Patient encounter procedure Garo Steele MD Work Phone: [facility] [place] Comment on above: Medicare annual well ness visit, subsequent (Primary Dx); Contusion of left chest wall, subsequent encounter; Contusion of left shoulder, subsequent encounter; Closed head injury, subsequent encounter; Fall, subsequent encounter; Chest pain, unspecified type; Screening for depression; Encounter for screening examination for other mental health and behavioral disorders Start: 04-15-2024 End: 04-15-2024 ambulatory Nimo Gaviria RN Work Phone: [employer] Comment on above: ACIvette BURGOS RN ( ED utilization review per request of payer) Start: 04-12-2024 End: 04-12-2024 Emergency department patient visit Fazal Mcmanus Facility:[facility] Start: 04-12-2024 End: 04-12-2024 Patient encounter procedure Lucille Ashley APRN.CNP Work Phone: [facility] Comment on above: Pain (Primary Dx); Headache, unspecified headache type Start: 03-30-2024 End: 03-30-2024 Office outpatient visit 25 minutes Altaf Metz MD Work Phone: [facility] [place] Comment on above: S/P total knee arthr oplasty, right (Primary Dx); Left hip pain Start: 03-30-2024 End: 03-30-2024 [facility] Start: 03-30-2024 End: 03-30-2024 Subsequent hospital visit by physician Altaf Metz MD Work Phone: [facility] [employer] [facility] Comment on above: Left hip pain S/P total knee arthr oplasty, right Start: 03-28-2024 End: 04-04-2024 Telephone encounter Altaf Metz MD Work Phone: [facility] Comment on above: Advice Only Start: 02-08-2024 End: 02-08-2024 Office outpatient visit 15 minutes Abner Hermosillo MD Work Phone: Department of Plastic Surgery Comment on above: Neuroma (Primary Dx) Start: 01-18-2024 End: 01-19-2024 Telephone encounter Altaf Metz MD Work Phone: [facility] Clinical Communication Comment on above: New Med Request Start: 11-05-2023 End: 11-05-2023 ambulatory CLAY S [facility] Start: 11-05-2023 End: 11-05-2023 Subsequent hospital visit by physician [address] Comment on above: Hyperlipidemia, unsp ecified; Family history of ischemic heart disease and other diseases of the circulatory system Start: 09-19-2023 Refill Nguyễn Gregg PA-C Work Phone: [facility] Start: 07-22-2023 End: 07-22-2023 Office outpatient visit 15 minutes Altaf Metz MD Work Phone: [facility] Comment on above: Primary osteoarthrit is of right knee; S/P total knee arthroplasty, right Start: 07-22-2023 End: 07-22-2023 Subsequent hospital visit by physician Madeline Houston PA-C Work Phone: [facility] [employer] Comment on above: Status post total ri ght knee replacement Start: 07-20-2023 Orders Only Madeline Tanner Work Phone: [facility]opedic Surg Comment on above: Status post total ri ght knee replacement (Primary Dx) Start: 07-01-2023 End: 07-01-2023 ambulatory [facility] Work Phone: Start: 07-01-2023 End: 07-01-2023 Discharged Recurring [facility]-Physical Therapy Work Phone: Start: 06-22-2023 Refill Altaf Metz MD Work Phone: [facility] Start: 06-19-2023 Telephone encounter Altaf Metz MD Work Phone: [facility] Comment on above: Advice Only Start: 04-29-2023 End: 04-29-2023 Postop follow up visit related to original px Nguyễn Gregg PA-C Work Phone: [facility] Comment on above: S/P total knee arthr oplasty, right (Primary Dx); Primary osteoarthritis of right knee; S/P total knee arthroplasty, left Start: 04-29-2023 End: 04-29-2023 Subsequent hospital visit by physician Nguyễn MARSHALLC Work Phone: [facility] Comment on above: S/P total knee arthr oplasty, right Start: 04-20-2023 Orders Only Nguyễn Gregg PA-C Work Phone: [facility] Comment on above: S/P total knee arthr oplasty, right (Primary Dx) Start: 04-13-2023 Telephone encounter Nguyễn Troy neri PA-C Work Phone: [facility] Comment on above: Post-op Problem Start: 04-06-2023 End: 04-06-2023 Postop follow up visit related to original px Nguyễn Gregg PA-C Work Phone: [facility] Comment on above: S/P total knee arthr oplasty, left Start: 03-24-2023 End: 03-25-2023 Subsequent hospital visit by physician Altaf Metz MD Work Phone: [facility] Comment on above: S/P total knee arthr oplasty, left (Primary Dx) Start: 02-26-2023 ambulatory Nguyễn Gregg DUDLEY Work Phone: [facility] Start: 02-06-2023 End: 02-06-2023 Subsequent hospital visit by physician Pati Boles 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 Work Phone: [facility] Comment on above: Arrived Start: 02-06-2023 End: 02-06-2023 Office outpatient visit 25 minutes Abner Hermosillo MD Work Phone: Department of Plastic Surgery Comment on above: H/O bilateral mastec rell (Primary Dx); History of right breast cancer Start: 02-04-2023 End: 02-04-[address] Garo Steele Work Phone: [facility] Work Phone: Start: 02-04-2023 End: 02-04-[address] Garo Steele Work Phone: [facility]-Laboratory Work Phone: Start: 01-28-2023 End: 01-28-2023 Office outpatient visit 25 minutes Altaf Metz MD Work Phone: [facility] Comment on above: Primary osteoarthrit is of right knee Start: 01-28-2023 End: 01-28-2023 Subsequent hospital visit by physician Altaf Metz MD Work Phone: [facility] [facility] Comment on above: Right knee pain, uns pecified chronicity Start: 12-29-2022 End: 12-29-2022 Patient encounter procedure Garo Steele MD Work Phone: [facility] [place] Comment on above: Medicare annual well ness visit, subsequent (Primary Dx); Neuropathic pain, leg, right; Other low back pain; Primary osteoarthritis of right knee; Hyperlipidemia, unspecified hyperlipidemia type; History of breast cancer; Multiple thyroid nodules Start: 12-22-2022 End: 12-22-[address] Garo Steele Work Phone: [facility] Work Phone: Start: 12-22-2022 End: 12-22-[address] Garo Steele Work Phone: [facility]-Physical Therapy Work Phone: Start: 11-21-2022 End: 11-21-[address] Garo Steele Work Phone: [facility] Work Phone: Start: 11-19-2022 End: 11-19-2022 Office outpatient new 30 minutes Altaf Metz MD Work Phone: [facility] Comment on above: Primary osteoarthrit is of right knee (Primary Dx) Start: 11-17-2022 Orders Only Nguyễn Gregg PA-C Work Phone: [facility] Comment on above: Right knee pain, uns pecified chronicity (Primary Dx) Start: 11-13-2022 Non-patient / Non-visit Dr. Arianna Steele Work Phone: [facility] Start: 11-13-2022 End: 11-13-[address] Garo Steele Work Phone: [facility] Work Phone: Start: 11-13-2022 End: 11-13-[address] Garo Steele Work Phone: [facility]-Cardiovascular Services Start: 11-13-[address] Garo Steele Work Phone: [facility]-Cardiovascular Services Start: 10-22-2022 End: 10-22-[address] Garo Steele Work Phone: [facility]-[place] [facility] Start: 08-25-[address] Jessie Steele Work Phone: [facility]-Physical Therapy Start: 06-27-2022 End: 06-27-2022 Patient encounter procedure Garo Steele MD Work Phone: [facility] [place] Comment on above: Hyperlipidemia, unsp ecified hyperlipidemia type (Primary Dx); Neuropathic pain, leg, right; Osteopenia of multiple sites; Mild memory disturbance; History of breast cancer Start: 06-10-2022 Telephone encounter Garo rios MD Work Phone: [facility] [place] Comment on above: Patient Update Start: 05-12-2022 End: 05-12-2022 Clinical Support Encounter Abner Hermosillo MD Work Phone: [facility] Comment on above: H/O bilateral mastec rell (Primary Dx) Start: 05-12-2022 End: 05-12-2022 Postop follow up visit related to original px Abner Hermosillo MD Work Phone: Department of Plastic Surgery Comment on above: H/O bilateral mastec rell (Primary Dx) Start: 04-15-2022 End: 04-15-2022 ambulatory [facility] Work Phone: Start: 04-15-2022 End: 04-15-2022 Discharged Recurring [facility]-Occupational Therapy Start: 04-15-2022 Registered Recurring [facility]-Occupational Therapy Start: 02-24-2022 End: 02-24-2022 Clinical Support Encounter Abner Hermosillo MD Work Phone: [facility] Comment on above: H/O bilateral mastec rell (Primary Dx) Start: 02-24-2022 End: 02-24-2022 Postop follow up visit related to original px Abner Hermosillo MD Work Phone: Department of Plastic Surgery Comment on above: H/O bilateral mastec rell (Primary Dx) Start: 02-21-2022 End: 02-21-2022 Postop follow up visit related to original px Valentina Manuel PA-C Work Phone: Department of Plastic Surgery Comment on above: Encounter for follow -up (Primary Dx) Start: 02-11-2022 End: 02-11-2022 Preprocedural examination done Abner Hermosillo MD Work Phone: [facility] Start: 02-11-2022 End: 02-11-2022 Subsequent hospital visit by physician Abner Hermosillo MD Work Phone: [facility] Comment on above: Pre-op exam Start: 01-29-2022 End: 01-29-2022 ambulatory [facility] Work Phone: Start: 01-29-2022 End: 01-29-[address] Karolina Leong Work Phone: [facility]-Laboratory Start: 01-27-2022 End: 01-27-2022 Patient encounter procedure Abner Hermosillo MD Work Phone: Department of Plastic Surgery Comment on above: Pre-op exam (Primary Dx) Start: 01-27-2022 End: 01-27-2022 Preprocedural examination done Abner Hermosillo MD Work Phone: Department of Plastic Surgery Start: 01-13-2022 End: 01-13-[address] Karolina Leong Work Phone: [facility] Work Phone: Start: 01-13-2022 End: 01-13-[address] Karolina Leong Work Phone: [facility]-Occupational Therapy Start: 12-17-2021 End: 12-17-[address] Geovanni Foreman Work Phone: [facility]-Ultrasound, [facility] Start: 12-03-2021 End: 12-03-[address] Geovanni Foreman Work Phone: [facility]-Laboratory, OP Pavilion Start: 12-03-2021 End: 12-03-[address] Geovanni Foreman Work Phone: [facility] Start: 11-25-2021 End: 11-25-[address] [facility] Start: 11-21-2021 End: 11-21-[address] [facility] Start: 11-12-2021 End: 11-12-[address] [facility] Start: 11-12-2021 End: 11-12-2021 Encounter for other preprocedural examination Dr. Geovanni Foreman Work Phone: [facility] Start: 11-12-2021 End: 11-12-[address] Geovanni Foreman Work Phone: [facility] Start: 10-04-2021 End: 10-04-2021 Office outpatient visit 25 minutes Abner Hermosillo MD Work Phone: Department of Plastic Surgery Comment on above: H/O bilateral mastec rell (Primary Dx) Start: 10-01-2021 End: 10-01-2021 Patient encounter procedure [facility]-Cardiovascular Services Start: 09-12-2021 End: 09-12-2021 [facility] Start: 08-14-2021 End: 08-14-2021 Patient encounter procedure [facility]-Laboratory, Phy Office 3rd Flr Start: 06-18-2021 End: 06-18-2021 [facility] Procedures Date Procedure Procedure Detail Performing Clinician Start: 03-14-2025 Release of trigger finger Dr. Garo Steele MD Work Phone: Start: 01-31-2025 Plain X-ray of finger Dr. Garo Steele MD Work Phone: Start: 12-29-[address] Garo Steele MD Work Phone: Start: 12-09-2024 Esophagogastroduodenoscopy Dr. Garo Steele MD Work Phone: Start: 04-15-2024 Ecg routine ecg w/least 12 lds i&r only Gaor Steele MD Work Phone: Start: 04-15-2024 Adult depression screening assessment Nimo Gaviria RN Work Phone: Start: 07-22-2023 Radiologic examination knee 1/2 views Madeline Houston PA-C Work Phone: Start: 04-29-2023 Radiologic examination knee 1/2 views Nguyễn Manzanolidante PA-C Work Phone: Start: 03-25-2023 Basic metabolic panel calcium total Nguyễn Balderaso PA-C Work Phone: Start: 03-24-2023 Radiologic examination knee 1/2 views Nguyễn Ramosfiglio PA-C Work Phone: Start: 03-24-2023 End: 03-24-2023 Arthrp kne condyle&platu medial&lat compartments Altaf Metz MD Work Phone: Start: 02-06-2023 Ct thorax w/o contrast material Pati Boles 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 Work Phone: Start: 02-06-2023 Us breast uni real time with image limited Pati Boles 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 Work Phone: Start: 11-13-2022 US scan of thyroid Dr. Garo Steele Work Phone: Start: 02-11-2022 CONTINUOUS CARDIAC MONITORING STRIP Othe r Other Start: 02-11-2022 CONTINUOUS CARDIAC MONITORING STRIP Othe r Other Start: 12-17-2021 Ultrasonography of thyroid and parathyroid Dr. Geovanni Foreman Work Phone: Start: 11-25-2021 US scan of thyroid Dr. Geovanni Foreman Work Phone: Start: 11-21-2021 Plain chest X-ray Dr. Geovanni Foreman Work Phone: Start: 10-01-2021 Plain x-ray of wrist Start: 09-12-2021 MRI of lumbar spine Start: 11-18-2018 History of bilateral mastectomy H/O bilateral mastectomy Abner Hermosillo MD Work Phone: Start: 11-03-2018 [facility] Garo Steele MD Work Phone: History of bilateral mastectomy H/O bilateral mastectomy Abner Hermosillo MD Work Phone: History of bilateral mastectomy H/O bilateral mastectomy Abner Hermosillo MD Work Phone: History of bilateral mastectomy H/O bilateral mastectomy Abner Hermosillo MD Work Phone: History of bilateral mastectomy H/O bilateral mastectomy Abner Hermosillo MD Work Phone: History of bilateral mastectomy H/O bilateral mastectomy Pati Boles 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 Work Phone: History of bilateral mastectomy H/O bilateral mastectomy Garo Steele MD Work Phone: History of bilateral mastectomy H/O bilateral mastectomy Garo Steele MD Work Phone: History of bilateral mastectomy H/O bilateral mastectomy Nabil Kim SILK SCREEN LAYOUT DRAFTER.CYBER ENGINEER Work Phone: Plan of Treatment Date Care Activity Detail Author Start: 10-15-2027 Diabetes Screening Diabetes Screening [facility] Start: 04-13-2026 Diabetes Screening Diabetes Screening [facility] Start: 10-30-2025 End: 10-30-2025 ambulatory 10/30/2025 8:00 AM EDT Visit (SP) Office Hematology/Oncology [address] [place] [address] Nabil Kim APRN.CNP [address] [place] [address] 1 YR OV* Hematology/Oncology Comment on above: 1 YR OV* Start: 04-18-2025 End: 04-18-2025 Patient encounter procedure 04/18/2025 10:20 AM EST Office Visit [facility] [address] [place], [place] [phone] Garo Steele MD [address] [place], [place] [phone] 6 month follow up/Medicare Wellness [facility] [place] Comment on above: 6 month follow up/Medicare Wellness Start: 04-15-2025 Anxiety Screening Anxiety Screening [facility] Start: 04-15-2025 Depression Screening Depression Screening [facility] Start: 04-04-2025 End: 04-04-2025 Patient encounter procedure 04/04/2025 11:00 AM EDT Office Visit [facility] Surgery [address] [facility] [place] [address] Jaylan Sebastian MD [address] [facility] [address] [place] [address] consult for 2nd opinion for kolb's records to be faxed to provider [facility] Surgery Comment on above: consult for 2nd opinion for kolb's re cords to be faxed to provider Start: 03-28-2025 End: 03-28-2025 Patient encounter procedure Mucous cyst of digit of left hand [facility] Work Phone: Start: 03-15-2025 End: 03-15-2025 Patient encounter procedure 03/15/2025 9:45 AM EDT Office Visit [facility] [place] Ana [place] [address] [place] [address] [place] [address] Altaf Metz MD [address] [facility] [address] [place] [address] [facility] [place] Start: 03-14-2025 Anes nerve muscle tdn fascia&bursa forearm wrist ANESTH LOWER ARM SURGERY [facility] Start: 03-14-2025 Exc lesion tdn shth/jt capsl hand/fngr REMOVE TENDON SHEATH LESION [facility] Start: 03-14-2025 Patient discharge [facility] Start: 03-13-2025 End: 03-13-2026 XR Hip - left 3 Views XR hip left 2 or 3 views Imaging Routine Left hip pain Expected: 03/13/2025, Expires: 03/13/2026 [facility] Work Phone: Comment on above: Expected: 03/13/2025, Expires: Start: 02-20-2025 End: 02-20-2025 Patient encounter procedure 02/20/2025 2:30 PM EDT Office Visit [facility] GENERAL SURGERY DEPARTMENT [address] [facility] 3rd Floor [place], [place] [id number] Jaylan Sebastian MD [address] [facility] [address] [place] [address] consult for 2nd opinion for kolb's records to be faxed to provider [facility] GENERAL SURGERY DEPARTMENT Comment on above: consult for 2nd opinion for kolb's re cords to be faxed to provider Start: 02-13-2025 COVID-19 Vaccine ( season) COVID-19 Vaccine ( season) [facility] Start: 02-13-2025 Influenza vaccination [facility] Start: 01-31-2025 Plain X-ray of finger Finger(s) Min [address] [facility] Start: 01-31-2025 XR Finger GE 2 Views [facility] Start: 12-09-2024 Egd insert guide wire dilator passage esophagus EGD GUIDE WIRE INSERTION [facility] Start: 12-09-2024 Egd transoral biopsy single/multiple EGD BIOPSY SINGLE/MULTIPLE [facility] Start: 12-09-2024 Patient discharge [facility] Start: 11-29-2024 LIPID SCREEN LIPID SCREEN [facility] Start: 10-28-2024 End: 10-28-2024 ambulatory 10/28/2024 8:00 AM EDT Visit (SP) Office Hematology/Oncology [address] [place] [address] Nabil Kim APRN.CYBER ENGINEER [address] [place] [address] SENIOR MANAGER MMCOE/HISTORY OF BREAST CANCER/DR STEELE REFERRING* Hematology/Oncology Comment on above: SENIOR MANAGER MMCOE/HISTORY OF BREAST CANCER/DR STEELE REFERRING* Start: 10-14-2024 End: 01-13-2025 CBC panel - Blood by Automated count COMPLETE BLOOD COUNT Lab Routine Primary osteoarthritis of right knee Expected: 10/14/2024, Expires: 01/13/2025 [facility] Comment on above: Expected: 10/14/2024, Expires: Start: 10-14-2024 End: 01-13-2025 Comprehensive metabolic 2000 panel - Serum or Plasma COMPREHENSIVE METABOLIC PANEL Lab Routine Hyperlipidemia, unspecified hyperlipidemia type Expected: 10/14/2024, Expires: 01/13/2025 [facility] Comment on above: Expected: 10/14/2024, Expires: Start: 10-14-2024 End: 01-13-2025 Lipid 1996 panel - Serum or Plasma LIPID PANEL, FASTING Lab Routine Hyperlipidemia, unspecified hyperlipidemia type Expected: 10/14/2024, Expires: 01/13/2025 [facility] Comment on above: Expected: 10/14/2024, Expires: Start: 10-13-2024 End: 10-13-2024 Patient encounter procedure [facility] Comment on above: 6 month follow up 6 month follow up/[place] dicare Wellness*Per [employer] Initiative- G0438, [id number] Modifier 25* Start: 06-15-2024 Advance Directive Discussion Advance Directive Discussion [facility] Start: 06-15-2024 Medicare Advantage Annual Wellness Visit Medicare Advantage Annual Wellness Visit [facility] Certain Start: 06-01-2024 End: 06-01-2024 Patient encounter procedure 06/01/2024 10:15 AM EST Office Visit [facility] [address] [place] [address] [place] [address] Altaf Metz MD [address] [facility] [address] [place] [address] [facility] Start: 03-30-2024 End: 03-23-2025 XR Knee - right 1 or 2 Views [facility] Work Phone: Comment on above: Expected: 03/30/2024, Expires: Once for 1 Occurrenc es starting 03/30/2024 until 03/30/2024 Start: 03-30-2024 End: 03-23-2025 XR knees anteroposterior standing bilateral [facility] Comment on above: Expected: 03/30/2024, Expires: Once for 1 Occurrenc es starting 03/30/2024 until 03/30/2024 Start: 03-04-2024 End: 03-04-2024 Patient encounter procedure 03/04/2024 11:45 AM EDT Office Visit Department of Plastic Surgery [address] [facility] [address] [place] [phone] Abner Hermosillo MD [address] [place] [address] [place] [phone] Department of Plastic Surgery Start: 02-24-2024 End: 02-24-2024 Admission to same day surgery center 02/24/2024 10:30 AM EDT - 02/24/2024 12:15 PM EDT Surgery [facility] [address] [place] [address] Abner Hermosillo MD [address] [place] [address] [place] [phone] REINNERVATION TARGETED MUSCLE [facility] Comment on above: REINNERVATION TARGETED MUSCLE Start: 02-24-2024 End: 02-24-2024 Exc neuroma cutan nrv surgly identifiable EXCISION NEUROMA CUTANEOUS Neuroma 02/24/2024 10:30 AM EDT [facility] Start: 02-24-2024 End: 02-24-2024 Nerve pedicle transfer first stage REINNERVATION TARGETED MUSCLE Neuroma 02/24/2024 10:30 AM EDT [facility] Start: 02-24-2024 Subsequent hospital visit by physician 02/24/2024 10:30 AM EDT Hospital Encounter [facility] [address] [place] [address] Abner Hermosillo MD [address] [facility] [address] [place] [phone] Neuroma [facility] Comment on above: Neuroma Start: 02-14-2024 COVID-19 Vaccine ( season) COVID-19 Vaccine ( season) [facility] Start: 02-14-2024 Covid-19 Vaccine ( season) Covid-19 Vaccine () [facility] Start: 02-14-2024 Influenza vaccination [facility] Start: 02-10-2024 End: 02-10-2024 Anesthesia consultation 02/10/2024 8:00 AM EDT Pre-Operative Nurse Assessment [facility] [address] [place] [phone] Abner Hermosillo MD [address] [facility] [address] [place] [phone] [facility] Start: 02-08-2024 End: 02-08-2024 Patient encounter procedure 02/08/2024 11:30 AM EDT Office Visit Department of Plastic Surgery [address] [facility] [address] [place] [phone] Abner Hermosillo MD [address] [facility] [address] [place] [phone] Department of Plastic Surgery Start: 12-30-2023 COVID-19 VACCINE (2 - Moderna series) COVID-19 VACCINE ( - Moderna series) [facility] Comment on above: Postponed from 08/13/2021 (Declined at t his time) Start: 11-04-2023 Colonoscopy COLONOSCOPY [facility] Start: 11-04-2023 COLORECTAL CANCER SCREENING COLORECTAL CANCER SCREENING [facility] Start: 07-22-2023 End: 07-22-2023 Patient encounter procedure 07/22/2023 8:45 AM EST Office Visit [facility] Orthopedic & Sports Medicine [facility] [place] [address] Altaf Metz MD [address] [facility] [address] [place] [address] [facility] Orthopedic & Sports [facility] Start: 07-20-2023 End: 07-20-2024 XR Knee - right 1 or 2 Views XR knee 1 or 2 views right Imaging Routine Status post total right knee replacement Expected: 07/20/2023, Expires: 07/20/2024 [facility] Work Phone: Comment on above: Expected: 07/20/2023, Expires: Start: 07-20-2023 End: 07-20-2024 XR knees anteroposterior standing bilateral XR knees anteroposterior standing bilateral Imaging Routine Status post total right knee replacement Expected: 07/20/2023, Expires: 07/20/2024 [facility] Comment on above: Expected: 07/20/2023, Expires: 5 Start: 07-01-2023 Screening for osteoporosis DEXA SCAN DISCUSSION [facility] Start: 06-15-2023 Advance Directive Discussion Advance Directive Discussion [facility] Start: 06-15-2023 Medicare Advantage Annual Wellness Visit Medicare Advantage Annual Wellness Visit [facility] Start: 04-29-2023 End: 04-29-2023 Patient encounter procedure 04/29/2023 8:30 AM EST Office Visit [facility] Orthopedic & Sports Medicine [facility] [place] [phone] Nguyễn Gregg PA-C [address] [facility] [address] [place] [address] [facility] Medicine Start: 04-29-2023 End: 04-29-2023 Documentation procedure 04/29/2023 8:00 AM EST Documentation [facility] Medicine [address] [place] [phone] [facility] Start: 04-20-2023 End: 04-20-2024 XR Knee - right 1 or 2 Views XR knee 1 or 2 views right Imaging Routine S/P total knee arthroplasty, right Expected: 04/20/2023, Expires: 04/20/2024 [facility] Certain Comment on above: Expected: 04/20/2023, Expires: Start: 04-20-2023 End: 04-20-2024 XR knees anteroposterior standing bilateral XR knees anteroposterior standing bilateral Imaging Routine S/P total knee arthroplasty, right Expected: 04/20/2023, Expires: 04/20/2024 [facility] Work Phone: Comment on above: Expected: 04/20/2023, Expires: Start: 04-13-2023 End: 04-13-2024 Comprehensive metabolic 1998 panel - Serum or Plasma Comprehensive metabolic panel Lab Routine S/P total knee arthroplasty, left Expected: 04/13/2023 (Approximate), Expires: 04/13/2024 [facility] Work Phone: Comment on above: Expected: 04/13/2023 (Approximate), Expi res: 04/13/2024 Start: 03-24-2023 End: 03-24-2023 Admission to same day surgery center 03/24/2023 9:30 AM EDT - 03/24/2023 10:30 AM EDT Surgery [facility] MAIN OR [address] [place] [address] Altaf Metz MD [address] [place] [address] [address] [place] [address] RIGHT TOTAL KNEE ARTHROPLASTY [22639 (CPT )] [facility] MAIN OR Comment on above: RIGHT TOTAL KNEE ARTHROPLASTY [22883 (CP T )] Start: 03-24-2023 End: 03-24-2023 Arthrp kne condyle&platu medial&lat compartments TOTAL KNEE REPLACEMENT Unilateral primary osteoarthritis, right knee 03/24/2023 9:30 AM EDT [facility] Operating Room Start: 03-24-2023 Subsequent hospital visit by physician 03/24/2023 7:30 AM EDT Hospital Encounter [facility] MAIN OR [address] [place] [address] Altaf Metz MD [address] [facility] [address] [place] [address] [facility] MAIN OR Start: 03-20-2023 End: 03-20-2023 Patient encounter procedure 03/20/2023 1:30 PM EDT Office Visit Department of Plastic Surgery [address] [facility] [address] [place] [phone] Abner Hermosillo MD [address] [facility] [address] [place] [phone] Department of Plastic Surgery Start: 03-10-2023 End: 03-10-2023 Admission to establishment 03/10/2023 9:30 AM EDT Pre-Admission Testing [facility] Pre-Admit Testing [address] [place] [address] Altaf Metz MD [address] [facility] [address] [place], [place] [phone] [facility] Pre-Admit Testing Start: 2023 RSV Immunization for Adults (1 - 1-dose 75+ series) RSV Immunization for Adults (1 - 1-dose 75+ series) [facility] Start: 2023 RSV Vaccine (1 - 1-dose 75+ series) RSV Vaccine (1 - 1-dose 75+ series) [facility] Start: 02-13-2023 COVID-19 Vaccine ( season) COVID-19 Vaccine ( season) [facility] Start: 02-13-2023 Influenza vaccination [facility] Start: 12-25-2022 End: 02-24-2023 CBC panel - Blood by Automated count CBC Lab Routine Mild memory disturbance Expected: 12/25/2022, Expires: 02/24/2023 [facility] Work Phone: Comment on above: Expected: 12/25/2022, Expires: Start: 12-25-2022 End: 02-24-2023 Cobalamin (Vitamin B12) [Mass/volume] in Serum or Plasma VITAMIN B12 BLOOD Lab Routine Mild memory disturbance Expected: 12/25/2022, Expires: 02/24/2023 [facility] Work Phone: Comment on above: Expected: 12/25/2022, Expires: 3 Start: 12-25-2022 End: 02-24-2023 Comprehensive metabolic 2000 panel - Serum or Plasma COMP METABOLIC PANEL Lab Routine Mild memory disturbance Expected: 12/25/2022, Expires: 02/24/2023 [facility] Work Phone: Comment on above: Expected: 12/25/2022, Expires: 3 Start: 12-25-2022 End: 02-24-2023 Lipid 1996 panel - Serum or Plasma LIPID PANEL BASIC Lab Routine Hyperlipidemia, unspecified hyperlipidemia type Expected: 12/25/2022, Expires: 02/24/2023 [facility] Work Phone: Comment on above: Expected: 12/25/2022, Expires: 3 Start: 12-25-2022 End: 02-24-2023 Thyrotropin [Units/volume] in Serum or Plasma TSH BLD Lab Routine Mild memory disturbance Expected: 12/25/2022, Expires: 02/24/2023 [facility] Work Phone: Comment on above: Expected: 12/25/2022, Expires: 3 Start: 11-29-2022 DIABETES SCREEN DIABETES SCREEN [facility] Start: 11-19-2022 End: 11-19-2022 Patient encounter procedure 11/19/2022 Office Visit Orthopedic Surgery Altaf Metz MD [address] [facility] [address] [place] [address] [facility] Orthopedic [facility] Sports Medicine Start: 11-17-2022 End: 11-18-2023 XR Knee - right 1 or 2 Views XR knee 1 or 2 views right Imaging Routine Right knee pain, unspecified chronicity Expected: 11/17/2022, Expires: 11/18/2023 [facility] Work Phone: Comment on above: Expected: 11/17/2022, Expires: 4 Start: 11-17-2022 End: 11-18-2023 XR knees anteroposterior standing bilateral XR knees anteroposterior standing bilateral Imaging Routine Right knee pain, unspecified chronicity Expected: 11/17/2022, Expires: 11/18/2023 [facility] Comment on above: Expected: 11/17/2022, Expires: 4 Start: 09-12-2022 End: 09-12-2022 Patient encounter procedure Department of Plastic Surgery Start: 06-15-2022 ADVANCE DIRECTIVE DISCUSSION ADVANCE DIRECTIVE DISCUSSION [facility] Start: 06-15-2022 DEPRESSION ASSESSMENT DEPRESSION ASSESSMENT [facility] Start: 05-12-2022 End: 05-12-2022 Patient encounter procedure 05/12/2022 Office Visit Plastic Surgery Abner Hermosillo MD [address] [facility] [address] [place] [phone] Department of Plastic Surgery Start: 02-21-2022 End: 02-21-2022 Patient encounter procedure Department of Plastic Surgery Start: 02-13-2022 Influenza vaccination [facility] Start: 02-11-2022 End: 02-11-2022 Admission to same day surgery center 02/11/2022 Surgery Multispecialty Abner Hermosillo MD [address] [facility] [address] [place] [phone] REMOVAL BREAST IMPLANT INTACT [facility] Comment on above: REMOVAL BREAST IMPLANT INTACT Start: 02-11-2022 End: 02-11-2022 Breast reconstruction free flap RECONSTRUCTION BREAST FREE FLAP H/O bilateral mastectomy 02/11/2022 7:00 AM EDT [facility] Start: 02-11-2022 End: 02-11-2022 Evaluation and management of inpatient [facility] Comment on above: H/O bilateral mastectomy REMOVAL BREAST IMPLA NT INTACT Start: 02-11-2022 End: 02-11-2022 Nerve pedicle transfer first stage REINNERVATION TARGETED MUSCLE H/O bilateral mastectomy 02/11/2022 7:00 AM EDT [facility] Start: 02-11-2022 Subsequent hospital visit by physician 02/11/2022 Hospital Encounter Multispecialty Abner Hermosillo MD [address] [facility] [address] [place] [address] Pre-op exam [facility]CT [facility] Comment on above: Pre-op exam Start: 02-11-2022 End: 02-11-2022 Immt insj brst prosth flwg mastopexy mast/rcnstj [facility] Start: 02-11-2022 End: 02-11-2022 Implnt bio implnt for soft tissue reinforcement [facility] Start: 02-11-2022 End: 02-11-2022 Periprosthetic capsulectomy breast [facility] Start: 02-11-2022 End: 02-11-2022 Removal intact mammary implant [facility] Start: 01-27-2022 End: 01-27-2023 CHEM 6 (LYTES, BUN CREA) CHEM 6 (LYTES, BUN CREA) Lab Routine Pre-op exam Expected: 01/27/2022, Expires: 01/27/2023 [facility] Work Phone: Comment on above: Expected: 01/27/2022, Expires: Start: 01-27-2022 End: 01-27-2023 HEMOGLOBIN & HEMATOCRIT HEMOGLOBIN & HEMATOCRIT Lab Routine Pre-op exam Expected: 01/27/2022, Expires: 01/27/2023 [facility] Comment on above: Expected: 01/27/2022, Expires: Start: 01-27-2022 End: 01-27-2022 Patient encounter procedure 01/27/2022 Office Visit Plastic Surgery Abner Hermosillo MD [address] [facility] [address] [place] [phone] Department of Plastic Surgery Start: 08-13-2021 COVID-19 Vaccine (2 - Booster for Moderna series) COVID-19 Vaccine (2 - Booster for Moderna series) [facility] Start: 08-13-2021 COVID-19 Vaccine (2 - Moderna series) COVID-19 Vaccine (2 - Moderna series) [facility] Start: 07-16-2021 COVID-19 VACCINE (2 - Moderna series) COVID-19 VACCINE (2 - Moderna series) [facility] Start: 05-19-2020 SHINGRIX VACCINE (2 of 2) SHINGRIX VACCINE (2 of 2) [facility] Start: 05-19-2020 Zoster vaccine hzv live for subcutaneous use ZOSTER (SHINGLES) VACCINE (2 of 2) [facility] Start: 05-19-2020 Zoster Vaccines (2 of 2) Zoster Vaccines (2 of 2) [facility] Start: 2013 Pneumococcal vaccination PNEUMOCOCCAL VACCINE SERIES (1 - PCV) [facility] Start: 2008 RSV Immunization aged 60 or older (1 - 1-dose 60+ series) RSV Immunization aged 60 or older (1 - 1-dose 60+ series) [facility] Start: 2008 RSV patients and/or patients aged 60+ years (1 - 1-dose 60+ series) RSV patients and/or patients aged 60+ years (1 - 1-dose 60+ series) [facility] Start: 2008 RSV VACCINE (1 - 1-dose 60+ series) RSV VACCINE (1 - 1-dose 60+ series) [facility] Start: 1998 SHINGRIX VACCINE (1 of 2) SHINGRIX VACCINE (1 of 2) [facility] Start: 1998 Zoster vaccine hzv live for subcutaneous use ZOSTER (SHINGLES) VACCINE (1 of 2) [facility] Start: 1993 COLOGUARD (FIT-DNA) COLOGUARD (FIT-DNA) [facility] Start: 1993 Colonoscopy COLORECTAL CANCER SCREENING DISCUSSION [facility] Start: [address] COLONOGRAPHY [facility] Start: 1993 FECAL OCCULT BLOOD FECAL OCCULT BLOOD [facility] Start: 1993 Screening for malignant neoplasm of colon COLORECTAL CANCER SCREENING DISCUSSION [facility] Start: 1993 SIGMOIDOSCOPY SIGMOIDOSCOPY [facility] Start: 1988 Fasting lipid profile LIPID SCREENING [facility] Start: 1988 Lipid panel LIPID SCREENING [facility] Start: 1988 Screening for malignant neoplasm of breast Mammogram [facility] Start: 1970 DTaP/Tdap/Td Vaccines (1 - Tdap) DTaP/Tdap/Td Vaccines (1 - Tdap) [facility] Start: 1969 Screening for malignant neoplasm of cervix CERVICAL CANCER SCREENING DISCUSSION [facility] Start: 1967 DTaP/Tdap/Td Vaccines (1 - Tdap) DTaP/Tdap/Td Vaccines (1 - Tdap) [facility] Start: 1967 Third diphtheria, tetanus and acellular pertussis (DTaP) vaccination TDAP (ADULT) [facility] Start: 1967 Urine microalbumin profile [facility] Start: 1966 Anxiety Screening Anxiety Screening [facility] Start: 1966 Depression Screening Depression Screening [facility] Start: 1966 Hepatitis C screening Hepatitis C Screening [facility] Start: 1966 Tetanus vaccination TETANUS [facility] Start: 1960 Depression Screening Depression Screening [facility] Start: 1955 DTaP/Tdap/Td Vaccines (1 - Tdap) DTaP/Tdap/Td Vaccines (1 - Tdap) [facility] Start: 1953 COVID-19 VACCINE (1) COVID-19 VACCINE (1) [facility] Start: 1948 COVID-19 VACCINE (#1) COVID-19 VACCINE (#1) [facility] Start: 1948 Hepatitis B Vaccines (1 of 3 - 3-dose series) Hepatitis B Vaccines (1 of 3 - 3-dose series) [facility] Start: 1948 Hepatitis C antibody, confirmatory test [facility]: 1948 Hepatitis C screening HEPATITIS C VIRUS SCREENING [facility] Start: 1948 Lipid panel Lipid Panel [facility] Start: 1948 Medicare Advantage Annual Wellness Visit (AWV) Medicare Advantage Annual Wellness Visit (AWV) [facility] Start: 1948 Medicare Annual Wellness Visit Medicare Annual Wellness Visit (AWV) [facility] Start: 1948 Screening for malignant neoplasm of colon [facility] Start: 1948 [facility] Start: 1948 Tetanus vaccination TETANUS [facility] Breast reconstructio n free flap RECONSTRUCTION BREAST FREE FLAP H/O bilateral mastectomy [facility] MAIN OR CBC W Auto Different ial panel - Blood [facility] Work Phone: CT angiography of coronary arteries [facility] End: 11-05-2023 CT for calcium scoring WO contrast and CTA W contrast IV Heart and coronary arteries [facility] Work Phone: Comment on above: Once for 1 Occurrences starting 11/05/19 24 until 11/05/2023 End: 07-27-2023 DXA-AXIAL SKELETON DXA-AXIAL SKELETON Radiology Routine Osteopenia of multiple sites 1 Occurrences starting 06/27/2022 until 07/27/2023 [facility] Work Phone: Comment on above: 1 Occurrences starting 06/27/2022 until 07/27/2023 ECG COMPLETE ECG COMPLETE ECG Routine Chest pain, unspecified type 04/15/2024 4:[address] [facility] Work Phone: [facility] ins[facility] brst prost h flwg mastopexy mast/rcnstj INSERTION BREAST PROSTHESIS IMMEDIATE H/O bilateral mastectomy [facility]IN OR Immt insj brst prost h flwg mastopexy mast/rcnstj INSERTION BREAST PROSTHESIS IMMEDIATE H/O bilateral mastectomy [facility] Lipid 1996 panel - S eamon or Plasma [facility] Work Phone: Lipid 1996 panel - S eamon or Plasma [facility] Nerve pedicle transf er first stage REINNERVATION TARGETED MUSCLE H/O bilateral mastectomy [facility] Open periprosthetic capsulotomy breast CAPSULOTOMY BREAST H/O bilateral mastectomy [facility] Open periprosthetic capsulotomy breast CAPSULOTOMY BREAST H/O bilateral mastectomy [facility] Periprosthetic capsulectomy breast CAPSULECTOMY BREAST H/O bilateral mastectomy [facility] OR Removal intact mamma ry implant REMOVAL BREAST IMPLANT INTACT H/O bilateral mastectomy [facility] MAIN OR Removal intact mamma ry implant REMOVAL BREAST IMPLANT INTACT H/O bilateral mastectomy [facility] MAIN OR Removal intact mamma ry implant REMOVAL BREAST IMPLANT INTACT H/O bilateral mastectomy [facility] SURG PATH REQUEST [facility] Comment on above: Release Upon Ordering for 1 Occurrences starting 02/11/2022 T4 free measurement [facility] Work Phone: Thyroid stimulating hormone measurement [facility] Work Phone: Triiodothyronine, fr ee measurement [facility] Work Phone: US Thyroid gland [facility] End: 03-30-2024 XR Hip - left 3 Views [employer] Work Phone: Comment on above: Once for 1 Occurrences starting 03/30/20 24 until 03/30/2024 End: 03-15-2025 XR Hip - left 3 Views [employer] Comment on above: Once for 1 Occurrences starting 03/15/20 until 03/15/2025 End: 01-28-2023 XR Knee - right 1 or 2 Views [employer] Work Phone: Comment on above: Once for 1 Occurrences starting 01/29/20 23 until 01/28/2023 End: 01-28-2023 XR knees anteroposterior standing bilateral [facility] Comment on above: Once for 1 Occurrences starting 01/29/20 until 01/28/2023 End: 11-12-2025 XR Shoulder - left 3 Views XR SHOULDER GENERAL 3V OR MORE AP/TRUE AP/OTHER LEFT Radiology Routine Chronic pain of both shoulders 1 Occurrences starting 10/13/2024 until 11/12/2025 [facility] Work Phone: Comment on above: 1 Occurrences starting 10/13/2024 until 11/12/2025 XR Shoulder - left 3 Views XR SHOULDER GENERAL 3V OR MORE AP/TRUE AP/OTHER LEFT Radiology Routine Chronic pain of both shoulders 10/13/2024 12:19 PM EDT [facility] End: 11-12-2025 XR Shoulder - right 3 Views XR SHOULDER GENERAL 3V OR MORE AP/TRUE AP/OTHER RIGHT Radiology Routine Chronic pain of both shoulders 1 Occurrences starting 10/13/2024 until 11/12/2025 [facility] Comment on above: 1 Occurrences starting 10/13/2024 until 11/12/2025 XR Shoulder - right 3 Views XR SHOULDER GENERAL 3V OR MORE AP/TRUE AP/OTHER RIGHT Radiology Routine Chronic pain of both shoulders 10/13/2024 12:19 PM EDT [facility] Immunizations Immunization Date Immunization Notes Care Provider [facility] 04-22-2022 influenza, high-dose , quadrivalent vaccine (FLUZONE HIGH DOSE QUADRIVALENT) Garo Steele MD Work Phone: [facility] 04-22-2022 influenza virus vaccine, unspecified formulation Altaf Metz MD Work Phone: [facility] 02-01-2021 influenza, injectabl e, quadrivalent, contains preservative Garo Steele MD Work Phone: [facility] 02-01-2021 influenza virus vaccine, unspecified formulation Abner Hermosillo MD Work Phone: [facility] 03-24-2020 influenza, high-dose , quadrivalent vaccine (FLUZONE HIGH DOSE QUADRIVALENT) Garo Steele MD Work Phone: [facility] 03-24-2020 pneumococcal polysaccharide vaccine, 23 valent Garo Steele MD Work Phone: [facility] 03-24-2020 zoster vaccine recombinant Garo Steele MD Work Phone: [facility] 03-24-2020 zoster vaccine, unspecified formulation Cielo Nevarezkyedwige [facility] 04-01-2019 influenza, high dose seasonal, preservative-free Garo Steele MD Work Phone: [facility] 04-01-2019 pneumococcal conjuga te vaccine, 13 valent Garo Steele MD Work Phone: [facility] 03-10-2018 influenza virus vaccine, unspecified formulation Garo Steele MD Work Phone: [facility] 03-04-2018 influenza, high dose seasonal, preservative-free Garo Steele MD Work Phone: [facility] 04-07-2017 influenza, high dose seasonal, preservative-free Garo Steele MD Work Phone: [facility] 04-26-2016 influenza, high dose seasonal, preservative-free Garo Steele MD Work Phone: [facility] 05-24-2015 influenza, injectabl e, quadrivalent, contains preservative Garo Steele MD Work Phone: [facility] Work Phone: 05-12-2014 influenza, seasonal, injectable, preservative free Garo Steele MD Work Phone: [facility] 06-04-2013 influenza, high dose seasonal, preservative-free Garo Steele MD Work Phone: [facility] 06-04-2013 pneumococcal polysaccharide vaccine, 23 valent Garo Steele MD Work Phone: [facility] Payers Date Payer Category Payer Self-pay [id number] 2022 Medicare O [facility] MEDIC[facility] [id number] 2013 Medicare [id number] 2013 Medicare (Managed Care) [facility] [id number] 2013 Medicare [id number] 1948 Unknown [id number]. 1243 Unknown [id number] Unknown [id number] [id number]. 462 Unknown [id number] 2.0.1.234134.3.579.2. 462 Unknown [id number] 2..1.386203.3.579.2. 462 Unknown [id number] 2.16.840.1.486788.3.579.2. 462 Unknown [id number] 2.16.840.1.390798.3.579.2. 462 Unknown [id number] 2.16.840.1.528942.3.579.2. 462 Unknown [id number] 2.16840.1.653054.3.579.2. 462 Unknown [id number] 2.840.1.386951.3.579.2. 462 Unknown [id number] 2.840.1.330676.3.579.2. 462 Unknown [id number] 2.840.1.107241.3.579.2. 462 Unknown [id number] 2.840.1.525111.3.579.2. 462 Unknown [id number] 2.840.1.153737.3.579.2. 462 Unknown [id number] 2.840.1.913281.3.579.2. 462 Unknown [id number] 2.840.1.415127.3.579.2. 462 Unknown [id number] 2.840.1.190716.3.579.2. 462 Unknown [id number] 2.840.1.178155.3.579.2. 462 Unknown [id number] 2.840.1.585351.3.579.2. 462 Unknown [id number] 2.840.1.980665.3.579.2. 462 Unknown [id number] 2.840.1.465808.3.579.2. 462 Unknown [id number] 2.840.1.242297.3.579.2. 462 Social History Date Type Detail Facility Start: 12-15-2013 End: 11-21-2022 Tobacco smoking status NVIS Unknown if ever smoked [facility] Start: 1950 Sex Assigned At Female [facility] Start: 05-13-2021 End: 02-28-2025 Tobacco smoking status NHIS Never smoked tobacco [facility] Start: 05-13-2021 End: 11-19-2022 Tobacco use and exposure Smokeless tobacco non-user [facility] Start: 1950 Sex Assigned At Not on file [facility] Start: 12-09-2019 End: 07-22-2023 Alcohol intake Current drinker of alcohol (finding) [facility] Start: 12-07-2019 End: 12-09-2019 History SDOH Alcohol Frequency 3 [facility] Start: 12-07-2019 End: 12-09-2019 History SDOH Alcohol Std Drinks 1 [facility] Start: 12-07-2019 History SDOH Social Connections Phone 5 [facility] Start: 12-07-2019 History SDOH Social Connections Get Together 2 [facility] Start: 12-07-2019 History SDOH Physica l Activity MPS 6 [facility] Start: 12-07-2019 Education 16 [facility] Start: 06-27-2022 End: 07-22-2023 Alcohol intake [facility] Start: 06-27-2022 Alcohol Comment 1 glass of wine [facility] Start: 11-19-2022 End: 07-22-2023 Tobacco use panel [facility] Do you belong to any clubs or organizations such as baptism groups, unions, fraternal or athletic groups, or school groups? Yes [facility] Are you now , , , , never or living with a partner? [facility] How often to you hav e a drink containing alcohol? 2-3 time sa week [facility] Work Phone: How many standard drinks containing alcohol do you have on a typical day? 1 or 2 [facility] Work Phone: How often do you hav e 6 or more drinks on 1 occasion? Never [facility] Work Phone: Start: 05-16-2012 How hard is it for y ou to pay for the very basics like food, housing, medical care, and heating Not hard at all [facility] Do you feel stress - tense, restless, nervous, or anxious, or unable to sleep at night because your mind is troubled all the time - these days [OSQ] Not at all [facility] (I/We) worried aries shakira (my/our) food would run out before (I/we) got money to buy more. Never true [facility] In the past 12 month s, was there a time when you were not able to pay the mortgage or rent on time? No [facility] Start: 01-18-2023 End: 11-05-2023 Exposure to SARS-CoV-2 (event) Not sure [facility] Start: 03-10-2023 Alcohol Comment liquor with di nner 3x week [facility] Start: 07-20-2023 Gender identity Identifies as female gender (finding) [facility] Start: 11-04-2022 Sex Female (finding) [facility] How often to you hav e a drink containing alcohol? 2-4 times a month [facility] Start: 10-28-2024 Sexual orientation Heterosexual (wallace hook) [facility] NEGATED: Highlighted row Not [facility] Medical Equipment Procedure Code Equipment Code Equipment Original Text Equipment Identifier Dates Implant Breast 470cc Smooth Surface Shell Gel P5.2cm - [id number] Start: 02-11-2022 Uvw-Xt-F-Kind Implant - [id number] Start: 04-28-2013 Comment on above: Description: 2.7 x 1 6mm locking screw Cement Bone Simplex P Full - [id number] Start: 03-24-2023 Base Tib Cement Attune Fb Sz5 - [id number] Start: 03-24-2023 Patella Dome Med Attune 32mm - [id number] FDA Start: 03-24-2023 Fem Cement Attun e Cr S6 Rt - [id number] Start: 03-24-2023 Insert Attune Rt Med Sz6 5mm - [id number] Start: 03-24-2023 Graft Skin 53r63ow Flexhd Thk.7-1.4mm Thin Medium Allograft - [id number] Start: 02-11-2022 Comment on above: Description: 0.7mm Graft Skin 00e19sp Flexhd Thk.7-1.4mm Thin Medium Allograft - [id number]_[facility] Start: 02-11-2022 Comment on above: Description: 0.9mm Implant Breast 470cc Smooth Surface Shell Gel P5.2cm - [id number] Start: 02-11-2022 Aim-In-V-Kind Implant - [id number]_[facility] Start: 04-28-2013 Comment on above: Description: cannula manuel screw Xkm-Xu-V-Kind Implant - [id number]_[facility] Start: 04-28-2013 Comment on above: Description: mtd john te sm 10 degree right Lhj-Ir-J-Kind Implant - [id number]_[facility] Start: 04-28-2013 Comment on above: Description: 2.7 x 1 2 mm locking screw Rtj-Vl-L-Kind Implant - [id number]_[facility] Start: 04-28-2013 Comment on above: Description: 2.7 x 1 4mm locking screw Cyi-Gw-K-Kind Implant - [id number]_[facility] Start: 04-28-2013 Comment on above: Description: 2.7 x 1 8mm non locking screw Goals Date Patient Goal Desired Activity /State Functional Status Date Assessment Result Facility 05-29-2014 Are you deaf, or do you have serious difficulty hearing No 05/29/2014 8:25 AM Le Ansari Ma [facility] 05-29-2014 Are you blind, or do you have serious difficulty seeing, even when wearing glasses No 05/29/2014 8:25 AM Le Ansari Ma No [facility] 05-29-2014 Do you have serious difficulty walking or climbing stairs No 05/29/2014 8:25 AM Le Ansari Ma [facility] 05-29-2014 Do you have difficul ty dressing or bathing No 05/29/2014 8:25 AM Le Ansari Ma [facility] 05-29-2014 Because of a physica l, mental, or emotional condition, do you have difficulty doing errands alone such as visiting a physician's office or shopping No 05/29/2014 8:25 AM HOWARD Zheng MaLe [facility] Mental Status Date Assessment Result Facility 03-14-2025 Cognitive function Voice/Name [facility] Work Phone: 12-09-2024 Cognitive function Level Of Cons ciousness Awake;Drowsy [facility] Work Phone: 12-09-2024 Cognitive function Voice/Name [facility] Work Phone: 05-29-2014 Because of a physica l, mental, or emotional condition, do you have serious difficulty concentrating, remembering, or making decisions No 05/29/2014 8:25 AM HOWARD Zheng MaLe [facility] Clinical Notes 11-18-2018 to 04-18-2025 Note Date & Type Note Facility 04-18-2025 Note HNO ID: [id number] Author: GARO STEELE MD Service: ? Author Type: Physician Type: Progress Notes Filed: 04/18/2025 14:46 Note Text: Mariah Dunham is a 75 year old female. She had excision of a left index finger mucous cyst by Dr. Newell Feb. . She noted increased redness, swelling, and tenderness of the left index finger tip for several days. Appointment with Dr. Newell was a few weeks away. No drainage was noted. She started seeing [facility] for dysphagia, GERD, Barett's esophagus without dysplasia. EGD was done in November. She transferred to Dr. Nunes for a 2nd opinion and is scheduled for further testing. She is currently on Nexium and Pepcid. We reviewed sleep apnea history. She was diagnosed with obstructive sleep apnea in [place], and has been using her CPAP nightly for several years. She reported 5-6 hours of sleep using her CPAP, settings not known. Supplies come thru [employer]. She stopped gabapentin last year and neuropathy was controlled with compounded cream from her disaster recovery specialist. Once her GI issues are evaluated, she hoped to have hip surgery. Review of Systems Constitutional: Negative for fatigue and fever. HENT: Positive for trouble swallowing. Respiratory: Negative for cough and shortness of breath. Cardiovascular: Negative for chest pain, palpitations and leg swelling. Gastrointestinal: Negative for nausea and vomiting. Genitourinary: Negative for difficulty urinating. Musculoskeletal: Positive for arthralgias. Neurological: Negative for dizziness and headaches. ACTIVE PROBLEM LIST Dysphagia Esophageal Reflux H/O Bilateral Mastectomy Neuropathic Pain, Leg, Right Osteopenia of Multiple Sites Other Low Back Pain Bruno On Cpap History of Breast Cancer Primary Osteoarthritis of Right Knee Hyperlipidemia Unilateral Primary Osteoarthritis, Left Hip Hiatal Hernia PAST SURGICAL HISTORY Procedure Laterality Date BREAST RECONSTRUCTION 01/2022 [facility] CARPAL TUNNEL 2018 right COLONOSCOPY - DIAGNOSTIC 11/05/2017 COLONOSCOPY - DIAGNOSTIC 11/01/2018 [place] COLONOSCOPY FLX DX W/COLLJ SPEC WHEN PFRMD 06/11/2004 Colonoscopy COLPOPEXY VAGINAL INTRAPERITONEAL APPROACH 12/22/2013 [facility] EGD DIAGNOSTIC 11/05/2017 [place] EGD DIAGNOSTIC 11/01/2018 [place] EGD DIAGNOSTIC 12/09/2024 EGD TRANSORAL BIOPSY SINGLE/MULTIPLE 08/05/2005 MASTECTOMY HX [...] BREAST RECONSTRUCTION Bilateral 12/2016 Dr. Gastelum in [place] TONSILLECTOMY PRIMARY/SECONDARY Tonsillectomy TOTAL KNEE REPLACEMENT Right 03/24/2023 [facility] VAG HYST 250 GM/< W/RMVL TUBEAND/OVARY 12/22/2013 [facility]/BSO WRIST RIGHT OP SURGERY Right 2018 [facility] Wrist fracture Current Outpatient Medications Medication Sig ezetimibe (ZETIA) 10 mg tablet Take 1 tablet by mouth once daily. lactase (LACTAID FAST ACT ORAL) Take by mouth. MAGNESIUM ORAL Take by mouth. calcium carbonate-vitamin D (CALCIUM 500 WITH VITAMIN D) 500-125 mg-unit ORAL Tab esomeprazole (NEXIUM) 40 mg capsule Take 1 capsule by mouth once daily. famotidine (PEPCID) 20 mg tablet Take 1 tablet by mouth daily at bedtime. cephALEXin (KEFLEX) 500 mg capsule Take 1 capsule by mouth three times a day for 7 days. baclofen powder, diclofenac sodium powder, gabapentin powder, lidocaine CARE HOME powder in cream base (CPD) Apply 1-2 g to affected area four times a day as needed. Baclofen2%;qnbokhznut88%;ootrrwxiyb53%;li docaine6%. Per Altaf Metz MD (orthopedics). celecoxib (CELEBREX) 200 mg capsule Take 1 capsule by mouth once daily as needed for pain (back pain). No current facility-administered medications for this visit. Objective BP 102/68 (BP Site: Left Arm, BP Position: Sitting, BP Cuff Size: Large Adult) Pulse 72 Ht 167.6 cm (5' 6") Wt 67.4 kg (148 lb 9.4 oz) BMI 23.98 kg/m? Physical Exam Constitutional: General: She is not in acute distress. Appearance: She is not ill-appearing. HENT: Head: Normocephalic. Cardiovascular: Rate and Rhythm: Normal rate and regular rhythm. Heart sounds: No murmur heard. No gallop. Pulmonary: Breath sounds: Normal breath sounds. Abdominal: Palpations: Abdomen is soft. Tenderness: There is no abdominal tenderness. Musculoskeletal: Left hand: Swelling and tenderness present. Left hip: Tenderness present. Decreased range of motion. Right lower leg: No edema. Left lower leg: No edema. Comments: Left index fingertip paronychia Neurol (more content not included)... [facility] 04-18-2025 Note HNO ID: [id number] Author: GARO STELEE MD Service: ? Author Type: Physician Type: Progress Notes Filed: 04/18/2025 14:46 Note Text: Tarik Dunham is a 75 year old female here for a Medicare Wellness visit. Medicare Health Risk Assessment General Health Very good Exercise: Minutes/Day 30 min Exercise: Days/Week 3 days Alcohol: Daily Use 2-4 times a month Alcohol: Drinks/Day 1 or 2 Alcohol: 6 or more drinks Never Feel off balance Yes Concerns: Teeth/Dentures No Concerns: Sexual function No Troubled by feelings None of the above Frequency: Eating healthy diet Several days ADLs requiring help None of the above Safety precautions in home/vehicle Yes Smoke, vape, chews tobacco No Difficulty hearing No Difficulty seeing No Current Providers Specialists: I have reviewed specialist-related care of the patient in the medical record. Current care team: Patient Care Team: Garo Steele MD as PCP - General (Internal Medicine) Rosa Washburn APRN.CYBER ENGINEER as Construction Tech (Internal Medicine) Bud Stone MD (Surgery, Endoscopy) Nabil Kim APRN, CNP (Oncology) Outside specialists seen: Altaf Metz MD (Orthopedics) Clay Jean MD (Cardiology) Isidro Wong OD (Optometry) Abner Hermosillo MD (Plastic Reconstructive Surgery) [facility]. Jimmie Newell MD (Plastic Surgeon) Cindy Reynoso MD (Gastroenterology) DME CPAP supplies: [employer]. Medical/Family history review Reviewed and updated problem list, medical/surgical/family/social history, medications, and allergies. Opioid use review Prescribed: No opioid use on file in the last 90 days Patient-reported: No opioid use on file in the last 90 days Depression screening Anxiety screening MEHDI-2 Score: 0 Cognitive screening Mini Cog Score: 5 Cognitive screening reviewed and No further action needed (score 3-5). Functional Observation Was the patient's Timed Up AND Go test unsteady or >= 12 seconds? No Advance Directives Surrogate decision maker and/or advance care plan documented Measurements BP 102/68 (BP Site: Left Arm, BP Position: Sitting, BP Cuff Size: Large Adult) Pulse 72 Ht 167.6 cm (5' 6") Wt 67.4 kg (148 lb 9.4 oz) BMI 23.98 kg/m? Vision Screening: Follows with optometry/ophthalmology Right: 20/25 Left: 20/ -- Both: 20/40 Assessment/Plan Medicare annual wellness visit, subsequent (Z00.00) - Counseled on healthy diet and regular exercise - Fall avoidance information provided - Personalized prevention plan provided - Vaccine recommendations reviewed. She will get these from her pharmacy. Garo Steele MD [facility] 03-28-2025 Progress note [facility] 03-28-2025 Progress note Note Date/Time March 28, 2025 2:06pm [facility] [address], [address] [place] [address] OFFICE VISIT Date of Service: 03/28/25 MR#: [id number] Acct: [id number] Name: TARIK DUNHAM Rep #: [id number] : 1950 Provider: JESSICA Caro Age/Sex: 75/F [place] [facility] Status: Signed Intake Vital Signs 3 03/24/25 10:27 Height 5 ft 5 in BP 119/76 Blood Pressure Location Lt brachial Position Sitting Respiration 18 Pulse 63 Temp 99.0 F Temp Source Temporal Pulse Oximetry (%) 96 Oxygen Delivery Method room air Intake Visit Reasons: SUTURE REMOVAL Chief Complaint: cyst on left index finger post op Is patient in pain?: Yes Allergies Iodinated Contrast Media (Iodinated Contrast Media - IV Dye) Allergy (Verified 03/28/25 13:52) Itching rosuvastatin Adverse Reaction (Verified 03/28/25 13:52) Myalgia Medications 3 ?Medication ?Instructions ?Recorded ?Confirmed ?Type calcium-magnesium 750 mg-465 mg 1 tab PO DAILY 5 03/28/25 History tablet magnesium carb,citrate,oxide 100 mg PO DAILY 12/08/24 03/28/25 History (Magnesium Complex) ezetimibe 10 mg tablet (Zetia) 10 mg PO QDAY #30 tabs 12/20/24 03/28/25 Rx famotidine 20 mg tablet 20 mg PO QHS #90 tabs 03/28/25 Rx esomeprazole magnesium 40 mg 40 mg PO QDAY #90 caps 03/28/25 Rx capsule,delayed release cephalexin 500 mg capsule 500 mg PO Q8H 7 days #21 cap s 03/14/25 03/28/25 Rx oxycodone 5 mg tablet 5 mg PO BID PRN pain 5 days #10 03/14/25 03/28/25 Rx tabs Have you fallen in the past year?: No Subjective Details: HPI from 03/14/25: TARIK DUNHAM, is a 75 F who was seen in consultation for mucous cyst on the left index finger. The cyst has been present for approximately three months and is associated with drainage of a sticky substance, particularly when wet with associated swelling, soreness. The patientinitially thought it was a wart and has been applying a topical treatment for 10days as advised. The patient also reports a history of tendon rupture in the right hand, leading to numbness and pain, which she suspects might be related to nerve damage or carpal tunnel syndrome. She experiences numbness in the fingertips and uses gabapentin at night for relief. Since her previous visit she reports no changes in her medications, health status. Recently her cyst was swelling and causing achiness she states she "popped" it and has some drainage again. Denies redness, fever, chills, new numbness, tingling. Date of Procedure: 03/14/25 Pre-Operative Diagnosis: Left index finger mucous cyst Post-Operative Diagnosis: Same Surgery/Procedure Performed: 1) Excision left index finger mucous cyst 03/24/2025: She is postop day 10 and continues to do well. She is doing gentle range of motion with her PIP joint. She denies incisional drainage, fever, chills, new numbness, weakness, tingling. Discussed pathology findings. The case was examined at [facility] by Dr. Butler (#[id number]) and the following diagnosis was rendered. A. Skin, left index finger, ?mucus cyst?, biopsy: Ganglion cyst Current encounter 03/28/2025: Patient is 2 weeks postop presenting today for suture removal. Continues to do well without recurrence. Still has PIP joint stiffness. Objective Details: Left upper extremity: Incision is intact, all sutures were removed without issues. Cyst is involuted,no recurrence, no drainage. Expected postoperative swelling. Collateral ligament laxity present prior to surgery, PIP joint stiffness. Flexes and extends MCP, PIP, DIP. Hyperextends, no mallet or jersey finger. Sensation intact to light touch Capillary refill less than 2 seconds, skin is pink and warm. Coding Level of Care Code Global Post Op Diagnoses Mucous cyst of digit of left hand M67.442 [facility] Medical History History of Kolb's esophagus Back problem Tinnitus Wears glasses Cancer High cholesterol History of hiatal hernia CPAP (continuous positive airway pressure) dependence Non-smoker Leg cramps History of echocardiogram History of stress test Cardiology follow-up encounter Hyperlipidemia Hypothyroidism GERD (gastroesophageal reflux disease) Osteopenia Osteoarthritis Neuropathy Breast cancer Arthritis Surgical History Hx of colonoscopy History of esophagogastroduodenoscopy (EGD) Hx of right cataract extraction Hx of left cataract extraction History of right knee joint replacement History of tonsillectomy History of surgery on right wrist History of bilateral carpal tunnel release History of foot surgery History of shoulder surgery H/O bilateral mastectomy History of hysterectomy Family History Mother Breast cancer Father Myocardial infarction, Onset Age: 42 Heart disease Hypertension High cholesterol Grandmother CVA (cerebral vascular accident) Sister Breast cancer Aunt Breast cancer Social History Smoking Status: Never smoker alcohol intake: current alcohol intake frequency: a few times a week substance use type: does not use caffeine: Yes Type: coffee Number of servings: 6 what type of physical activity do you participate in: none additional social history: pt denies vaping, denies marijuana use, denies edibles pt denies blood clots Assessment and Plan (No Qualifiers) Assessment and Plan (1) Mucous cyst of digit of left hand: Status: Acute Plan: Expected healing. 2 weeks postop. Continue splinting, encouraged forced PIP range of motion. Will see back in 2 weeks for 1 month follow-up for splint clearance and possiblehand therapy referral if stiffness continues. Patient was happy with plan. Dr. Newell evaluated the patient as well and agrees with plan. 03/28/25 3598 <Electronically signed by Jessy LOPEZ > Date _ Jessy LOPEZ Cosigner Signature: Date (if applicable) CC: ~ [facility] Work Phone: [phone] 747-564510-10-2025 Progress [facility] [address], [address] [place] [address] OFFICE VISIT Date of Service: 03/24/25 MR#: [id number] Acct: [id number] Name: ASHLEYAVATARIK GAY Rep #: [id number] : 1950 Provider: Dr. Víctor Newell MD Age/Sex: 75/F [place] [facility] [place] Status: Signed Intake Vital Signs 3 03/17/25 10:23 03/24/25 10:27 Height 5 ft 5 in 5 ft 5 in BP 128/63 H 119/76 Blood Pressure Location Lt brachial Lt brachial Position Sitting Sitting Respiration 18 18 Pulse 59 L 63 Temp 98.1 F 99.0 F Temp Source Oral Temporal Pulse Oximetry (%) 96 96 Oxygen Delivery Method room air room air Intake Visit Reasons: 1 W FU Chief Complaint: cyst on left index finger post op Is patient in pain?: No Allergies Iodinated Contrast Media (Iodinated Contrast Media - IV Dye) Allergy (Verified 03/24/25 10:28) Itching rosuvastatin Adverse Reaction (Verified 03/24/25 10:28) Myalgia Have you fallen in the past year?: No Subjective Details: HPI from 03/14/25: TARIK DUNHAM, is a 75 F who was seen in consultation for mucous cyst on the left index finger. The cyst has been present for approximately three months and is associated with drainage of a sticky substance, particularly when wet with associated swelling, soreness. The patientinitially thought it was a wart and has been applying a topical treatment for 10days as advised. The patient also reports a history of tendon rupture in the right hand, leading to numbness and pain, which she suspects might be related to nerve damage or carpal tunnel syndrome. She experiences numbness in the fingertips and uses gabapentin at night for relief. Since her previous visit she reports no changes in her medications, health status. Recently her cyst was swelling and causing achiness she states she "popped" it and has some drainage again. Denies redness, fever, chills, new numbness, tingling. Date of Procedure: 03/14/25 Pre-Operative Diagnosis: Left index finger mucous cyst Post-Operative Diagnosis: Same Surgery/Procedure Performed: 1) Excision left index finger mucous cyst Current encounter 03/24/2025: She is postop day 10 and continues to do well. She is doing gentle range of motion with her PIP joint. She denies incisional drainage, fever, chills, new numbness, weakness, tingling. Discussed pathology findings. The case was examined at [facility] by Dr. Butler (#[id number]) and the following diagnosis was rendered. A. Skin, left index finger, ?mucus cyst?, biopsy: Ganglion cyst Objective Details: Left upper extremity: Incision is intact, sutures intact. Cyst is involuted, no drainage. Expected postoperative swelling. Collateral ligament laxity present prior to surgery, PIP joint stiffness. Flexes and extends MCP, PIP, DIP. Hyperextends, no mallet or jersey finger. Sensation intact to light touch Capillary refill less than 2 seconds, skin is pink and warm. Coding Level of Care Code Global Post Op Diagnoses Mucous cyst of digit of left hand M67.442 [facility] Medical History History of Kolb's esophagus Back problem Tinnitus Wears glasses Cancer High cholesterol History of hiatal hernia CPAP (continuous positive airway pressure) dependence Non-smoker Leg cramps History of echocardiogram History of stress test Cardiology follow-up encounter Hyperlipidemia Hypothyroidism GERD (gastroesophageal reflux disease) Osteopenia Osteoarthritis Neuropathy Breast cancer Arthritis Surgical History Hx of colonoscopy History of esophagogastroduodenoscopy (EGD) Hx of right cataract extraction Hx of left cataract extraction History of right knee joint replacement History of tonsillectomy History of surgery on right wrist History of bilateral carpal tunnel release History of foot surgery History of shoulder surgery H/O bilateral mastectomy History of hysterectomy Family History Mother Breast cancer Father Myocardial infarction, Onset Age: 42 Heart disease Hypertension High cholesterol Grandmother CVA (cerebral vascular accident) Sister Breast cancer Aunt Breast cancer Social History Smoking Status: Never smoker alcohol intake: current alcohol intake frequency: a few times a week substance use type: does not use caffeine: Yes Type: coffee Number of servings: 6 what type of physical activity do you participate in: none additional social history: pt denies vaping, denies marijuana use, denies edibles pt denies blood clots Assessment and Plan (No Qualifiers) Assessment and Plan (1) Mucous cyst of digit of left hand: Status: Acute Plan: Expected course of healing. Left sutures in place. Pathology discussed and copygiven to patient. Continue extension splinting. Patient was encouraged to do forced flexion with PIP joint to preventstiffness. Continue wound precautions and lifting restrictions. Follow-up Wednesday 03/[address] Newell evaluated the patient as well and agrees with plan. 03/24/25 1537 > Date _ Jimmie Newell MD 03/24/25 1118 Cosigner Signature: Date (if applicable) Jessy Roman CC: ~ [facility]10-01-2025 NoteHNO ID: [id number] Author: RENETTA ORTIZ RT(Curtis) Service: Radiology Author Type: Technologist Type: Progress Notes Filed: 03/15/2025 14:03 Note Text: Radiology Service Progress Note PATIENT NAME: Tarik Dunham DATE OF SERVICE: March 15, 2025 TIME: 2:02 PM PATIENT IDENTITY VERIFICATION COMPLETED USING TWO (2) IDENTIFIERS: Name and Date of confirmed by patient verbally. FALL SCREENING: Has the patient had 2 falls in the last year or 1 fall with injury or currently using an Ambulatory Assistive Device (Walker, Cane, Wheelchair, Crutches, etc.)? No PATIENT GENDER DATA: Assigned female at . status: : No status: NO. PATIENT RELEVANT IMPLANT DATA REVIEWED: Not Applicable PATIENT PRESENTS WITH AN IMPLANTABLE OR ATTACHED TRACTOR DRIVER TEAMSTER: No RADIOLOGY DEPARTMENT: General X-ray: Exam(s) Completed: GI/ Procedure(s): Esophogram with barium contrast PERIPHERAL IV DATA: Not applicable SIGNED BY: RT Kelly(R) March 15, 2025 2:02 [facility]10-01-2025 History of Present illness Narrative* Altaf Metz MD - 03/15/2025 9:45 AM EDT Images from the original note were not included. [facility] [address] [place] [address] [place] [address] Dept: [phone] Dept 03/15/2025 Chief Complaint Patient presents with Follow-up F/u new dx- left hip pain- discuss options "may consider surgery" Subjective: Tarik is a 75 y.o. female who presents for evaluation of the left hip. Symptoms began gradually several years ago. She describes the symptoms as sharp. Pain location: groin and side of hip/laterally. Symptoms improve with medication: Tylenol. The symptoms are exacerbated by activity, stair climbing, weight bearing. Able to walk 1 blocks and is able to use stairs. Overall, the patient feels as ifthis condition is mildly impacting their quality of life and ability to do activities of daily living. No associated radicular pain contributing nor any radiating hip pain. She has Kolb's Esophagus. Hiatal Hernia. She had a Cardiology and blood clot history. Previous Surgery: No Non-operative treatment has consisted of: NSAIDS: No Cortisone injections: No Assistive Devices: No Therapy: No Narcotics: No Activity modification: Yes Attempted Weight Loss: No Medications reviewed Review of Systems Constitutional: Negative for activity change. HENT: Negative for congestion. Cardiovascular: Negative for leg swelling. Musculoskeletal: Positive for arthralgias, gait problem and joint swelling. Skin: Negative for wound. Neurological: Negative for weakness. Medical History[1] Surgical History[2] Social History Socioeconomic History Marital status: Spouse name: Not on file Number of children: Not on file Years of education: Not on file Highest education level: Not on file Occupational History Not on file Tobacco Use Smoking status: Never Smokeless tobacco: Never Vaping Use Vaping status: Never Used Substance and Sexual Activity Alcohol use: Yes Comment: liquor with dinner 3x week Drug use: Never Sexual activity: Not on file Other Topics Concern Not on file Social History Narrative Not on file Social Drivers of Health Financial Resource Strain: Low Risk (10/12/2024) Received from [facility] Overall Financial Resource Strain (CARDIA) Difficulty of Paying Living Expenses: Not hard at all Food Insecurity: No Food Insecurity (10/12/2024) Received from [facility] Hunger Vital Sign Worried About Running Out of Food in the Last Year: Never true Ran Out of Food in the Last Year: Never true Transportation Needs: No Transportation Needs (10/12/2024) Received from [facility] PRAPARE - Transportation Lack of Transportation (Medical): No Lack of Transportation (Non-Medical): No Physical Activity: Insufficiently Active (10/12/2024) Received from [facility] Exercise Vital Sign Days of Exercise per Week: 3 days Minutes of Exercise per Session: 30 min Stress: No Stress Concern Present (10/12/2024) Received from [facility] [employer] [employer] - Occupational Stress Questionnaire Feeling of Stress : Not at all Social Connections: Unknown (10/12/2024) Received from [facility] Social Connection and Isolation Panel [NHANES] Frequency of Communication with Friends and Family: More than three times a week Frequency of Social Gatherings with Friends and Family: More than three times a week Attends Zoroastrianism Services: More than 4 times per year Active Member of Clubs or Organizations: Patient declined Attends Club or Organization Meetings: Patient declined Marital Status: Intimate Partner Violence: Not on file Housing Stability: Unknown (12/07/2019) Received from [facility] Housing Stability Vital Sign Unable to Pay for Housing in the Last Year: No Number of Places Lived in the Last Year: Not on file Unstable Housing in the Last Year: No Family History[3] Allergies[4] Objective: Ht 5' 6" (1.676 m) Wt 140 lb (63.5 kg) BMI 22.60 kg/m Pt is a WD/WN female in no acute distress. She appears her stated age. Mood and affect are normal. She is A&O x 3. Gait: antalgic and stiff-legged. RIGHT HIP: Skin is warm, dry and intact. There are no rashes, lesions, or obvious scars. No tenderness to palpation. Greater trochanter is not tender. ROM shows flexion 110, IR 30, ER 40, without pain. [facility] exam: negative. +PF/DF/EHL. SILT distally. DP/PT palpable. Straight leg raise negative for inciting radicular symptoms. LEFT HIP: Skin is warm, dry and intact. There are no rashes, lesions, or obvious scars. No tenderness to palpation. Greater trochanter is not tender. ROM shows flexion 70, IR 10, ER 20, with pain. [facility] exam: positive. +PF/DF/EHL. SILT distally. DP/PT palpable. Straight leg raise negative for inciting radicular symptoms. The patient does have a leg length discrepancy and measures 3-4mm short on the left. Lab Findings: RELEVANT LABS: none Radiology Findings: 03/15/25 images obtained by outside radiology department independently reviewed and interpreted by myself today in office. XRAYS: Indication: Left hip pain Exam Ordered: Radiographs include an anteroposterior pelvis, an anteroposterior and lateral view ofthe proximal femur including the hip joint. Details of Examination: Exam shows evidence of significant joint space narrowing (bone on bone), significant peripheral osteophyte formation, and subchondral sclerosis; all consistent with end-stage degenerative changes of the hip. No other significant findings are noted. Impression: Degenerative Arthritis, left hip Assessment 1. Left hip pain 2. Arthritis of left hip Plan Left Total Hip Arthroplasty. This patient has end-stage degenerative joint disease clinically and radiographically. The affectedhip is severely impacting the patient's quality of life and causing them to decrease their daily activities. They have tried non- operative treatment including analgesics, an exercise program, and activity modification, but the symptoms have persisted for beyond three months. The patient meets all of the criteria for a total hip arthroplasty. The risks and benefits of hip arthroplasty have been discussed with the patient. Benefits include potential relief of pain and the associated improvement in quality of life. Improvements in hip rangeof motion may or may not be attained and is less predictable. Risks include, but are not limited to, infections (including severe sequelae), potential component failure and implant loosening, fracture, DVT, pulmonary embolus, hip dislocation, leg length discrepancy, damage to nerves/muscles/tendons/ligaments, osteolysis, persistent pain, wound healing complications, bleeding and need for possibletransfusions, multi-system organ injury/failure, and ultimately . The patient comprehends and u nderstands the risks clearly and wishes to proceed with the indicated total hip procedure. Principal Care Management (PCM) services were recommended to this patient with a diagnosis of osteoarthritis who has failed conservative management and is indicated for, as well as undergone shared decision-making to undergo a total joint arthroplasty procedure. PCM services provided to the patientinclude but not limited to structured recording of patient health information within our electronicmedical record system, 05/01 access and continuity of care to qualified practitioners and/or clinical staff, comprehensive care management and planning to optimize pre-surgical needs, choice of an appropriate surgical facility, preoperative patient education, and coordination of patient-specific aaliyah- operative needs. This will be actively managed by the clinical staff with physician supervision throughout enrollment in the program. The clinical staff will help manage care transitions as well as coordinate home and community-based care as it pertains to the patient's needs. The patient expresses understanding and awareness of PCM services, including but not limited to potential cost- sharing responsibilities; only one practitioner can furnish and bill for PCM services during a calendar month, and the patient can stop these services at any time. The patient understands and has verbally consented to accept PCM services. We will need a 4 week post-op check with WB AP pelvis, AP, and frog leg views of operative hip. Pre-operative planning will include the following: A pre-surgical evaluation by an distributor operator will be arranged. Pre-operative laboratory tests as well as EKG which will be checked by the distributor operator. Will make arrangements with the operating room for proper time and staffing. Arrangements with the implant company to make sure the proper implants are made available. Social service arrangements for the patient, to include physical therapy at home versus in the outpatient setting, depending on patient preference. The chance for residential facility discharge is also plausible pending post-op therapy. Patient Discussion, Scripts, & Risk Assessment Checklist: [x] Detailed Consent Performed [x] Cardiology consult prior to surgery (i.e. CHF, stents) - yearly visit upcoming, need seen priorto surgery [x] Specialist managing patient (i.e. endocrine, nephrology, oncology) Consult [facility] at [facility] prior to surgery - having study done today, need to determine next steps with hiatal hernia and medication recs prior to going forward with DANIAL. [] PCP consult prior to surgery [x] PT Discussion - Patient prefers: Home PT [] Outpatient PT script provided - Patient to schedule well in advance for 2-3 days after surgery [x] Aaliyah-articular Injection Form Submitted - No significant allergy or intolerance to NSAID's - All Total Joint Procedures [] Dental work to be done - Patient to call back after completed/cleared before scheduling [x] Previous Blood Clot: Unprovoked when very young [] Disease Modifying Drugs for *Autoimmune Disease N/A [x] Risk Assessment... No High Risk Factors [x] High Risk Protocol Duricef 500mg BID x 7 days BOOKING INSTRUCTIONS Procedure: Left Total Hip Arthroplasty - 84823 with anterior approach and robotic assisted guidance- 0055T Time: 1 hour(s) Diagnosis: 1. Left hip pain 2. Arthritis of left hip Blood: Not anticipated to be given Important Labs to Obtain: Routine PAT protocol Anesthesia: Spinal and quadratus lumborum block DVT Prophylaxis: Lovenox 40mg daily 15 days, then ASA 15 days Return to Office: No Repeat Xrays: Brian CT Anticipated Discharge To: Home, 23-HR Stay Implants: Kaya Trident 2 Cup, Insignia Stem with Brian Equipment: Regular table, fluoro Other: TXA, No [place], OpSite The patient is not a candidate for same day joint replacement. The patient will contact our office once she gets more information regarding the direction of her hernia treatment. [1] Past Medical History: Diagnosis Date Arthritis Cancer (HCC) right breast Fractures pelvis, right shoulder, right wrist Hyperlipidemia Sleep apnea uses cpap [2] Past Surgical History: Procedure Laterality Date BREAST BIOPSY BREAST RECONSTRUCTION Bilateral CARPAL TUNNEL RELEASE CATARACT EXTRACTION COLONOSCOPY DILATION AND CURETTAGE OF UTERUS FOOT SURGERY Right pin placed in big toe HYSTERECTOMY MASTECTOMY Bilateral TONSILLECTOMY TOTAL KNEE ARTHROPLASTY Right 03/24/2023 [3] No family history on file. [4] Allergies Allergen Reactions Iodinated Contrast Media Itching documented in this [facility]09-30-2025 Consult note [facility] Medical Records Department [address] [place] [address] Anesthesia Postop Eval II 03/14/25912 MR#: [id number] Acct: [id number] Name: TARIK DUNHAM Rep #:[id number] : 1950 75 From: Aaron Malone MD PCP: Dr. Garo Steele MD Status:R EG ORC Y Race: C Location: [place] [address] Anesthesia Postop Eval I Sum Postop Eval Completion status Anesthesia document: Postop Eval 1 completed: Yes Anesthesia Postop Eval I Summary Anesthesia Postop Eval I Summary: Anesthesia Postop Eval I: Assessment Summary Airway patent Yes 03/14/25 08:14 COMMUNITY RELATIONS ASSISTANT.HBARR Spontaneous unlabored Yes 03/14/25 08:14 COMMUNITY RELATIONS ASSISTANT.HBARR respirations Mental status Awake 03/14/25 08:14 COMMUNITY RELATIONS ASSISTANT.HBARR nausea No 03/14/25 08:14 COMMUNITY RELATIONS ASSISTANT.HBARR Vomiting No 03/14/25 08:14 COMMUNITY RELATIONS ASSISTANT.HBARR Anesthesia Postop Eval I: Fluid Summary Crystalloid volume administer 500 03/14/25 08:14 COMMUNITY RELATIONS ASSISTANT.HBARR (ml) Colloids volume administered ( ml) Blood Product volume administered (ml) Total IV fluid infused 500 03/14/25 08:14 COMMUNITY RELATIONS ASSISTANT.HBARR Anesthesia Postop Eval I: Summary Notes Anesthesia Complication No 03/14/25 08:14 COMMUNITY RELATIONS ASSISTANT.HBARR Anesthesia Complication Comment: Post-operative progress note Anesthesia: Postop Eval II Evaluation Mental status: Awake and Calm Pain Level: 1 nausea: No Vomiting: No Complications Anesthesia Complication: No 03/14/25912 sathya COLEMAN> Date _ Aaron Malone MD Cosigner Signature: Date CC: ~ Signed [facility]09-30-2025 Consult note Author Aaron Malone [facility] Note Date/Time March 14, 2025 7:31am [facility] Medical Records Department [address] [place] [address] Pre-Anesthesia Evaluation 03/14/25717 MR#: [id number] Acct: [id number] Name: TARIK DUNHAM Rep #:[id number] : 1950 75 From: Aaron Malone MD PCP: Dr. Garo Steele MD Status:R [facility] [place] Y Race: C Location: [place] [address] ASA Classification* ASA Classification ASA Classification: 2 Assessment & Plan Anesthesia* Anesthesia Assessment Anesthesia Assessment: Discussed sedation and/or anesthesia options, risks, benefits, and alternatives with patient/parents/legal guardian/POA. Questions invited. The patient/parents/legal guardian/POA seems to understand and agrees to proceedwith anesthesia plan. Reviewed the physical assessment, medical history, allergy history and patient home medications list prior to surgery/procedure/anesthetic and documented any changes. Performed airway and anesthesia risk assessments. Anesthesia Type Anesthesia Type: MAC History Source History Obtained from:: Patient and Chart Anesthesia Focused Assessment* Temperature: 97.5 F Pulse Rate: 57 Blood Pressure: 121/77 Respiratory Rate: 16 Pulse Ox: 100 Oxygen Delivery Method: Room Air Airway Assessment Mouth opens: >3 cm Mallampati Score: II Teeth Condition: Intact Neck Range of motion (ROM): Limited ROM (Slight Decrease) Labs Anesthesia Preop lab: CBC WBC, (4.4-11.0) 5.2 K/mm3 01/29/22, 11: RBC, (4.2-5.4) 4.07 M/mm3 L 01/29/22, 11:01 Hgb, (12.0-15.0) 12.3 g/dL 01/29/22, 11:01 Hct, (37-47) 37.4 % 01/29/22, 11:01 Plt Count, (150-450) 288 K/mm3 01/29/22, 11:01 CHEMISTRY Potassium, (3.5-5.1) 4.5 mmol/L 01/29/22, 11:01 Sodium, (136-145) 142 mmol/L 01/29/22, 11:01 BUN, (7-18) 15 mg/dL 01/29/22, 11:01 Creatinine, (0.55-1.02) 0.84 mg/dL 01/29/22, 11:01 Glucose, (74-106) 99 mg/dL 01/29/22, 11:01 TSH, (0.358-3.74) 3.40 uIU/mL 01/29/22, 11:01 COAG Pre-Assessment Diagnosis/Proposed Procedure Planned Operative Procedure(s): EXCISION MUCOUS CYST LEFT INDEX FINGER Anesthesia History 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 When Was Last Pacemaker Check QUESTION #4 FULL TEXT: You/Your Family Experience fever (hyperthermia) with Anesthesia Last Oral Intake Last Oral intake: Last Oral Intake NPO since 05:00 03/14/25 06:25 Meds taken in AM with sips of water? Meds patient instructed to take am of surgery Any additional information?: Yes NPO since: 05:00 (Patient had black coffee at 5AM.) Meds taken in AM with sips of water?: Yes PONV PONV - electronic controls repairer supervisor: PONV - electronic controls repairer supervisor Female Yes 02/28/25 08:58 HX of Motion Sickness No 02/28/25 08:58 HX of N/V After Surgery No 02/28/25 08:58 Non-Smoker Yes 02/28/25 08:58 Duration of Surgery greater No 02/28/25 08:58 than 60 minutes Number of Risk Factors 2 02/28/25 08:58 PONV Score Moderate Risk 02/28/25 08:58 Height & Weight Height & Weight: Anesthesia: Height & Weight Height 5 ft 5 in 03/14/25 06:25 Weight: 67.585 kg 03/14/25 06:25 Body Mass Index (BMI) 24.7 03/14/25 06:25 Respiratory Assessment Respiratory Assessment - electronic controls repairer supervisor: Respiratory Tract Infection Hx - electronic controls repairer supervisor Hx Respiratory Tract Infection No 02/28/25 08:58 STOP Sleep Apnea STOP Sleep Apnea - electronic controls repairer supervisor: STOP Sleep Apnea - electronic controls repairer supervisor Hx Hypertension No 02/28/25 08:58 Hx Sleep Apnea Yes 02/28/25 08:58 CPAP Yes 02/28/25 08:58 BIPAP No 02/28/25 08:58 Do you snore loudly (louder than talking or can be heard Do you often feel tired/ fatigued/ sleepy during daytime? Has anyone observed you stop breathing during sleep? STOP Results Positive 02/28/25 08:58 QUESTION #5 FULL TEXT : Do you snore loudly (louder than talking or can be heard through closed doors)? 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 Specify any problems Hx of Preganancy in last 3 No 02/28/25 08:58 Months Nurse Filling Out Transfusion DSCHRIBER 02/28/25 08:58 & Questions: Date: 02/28/25 02/28/25 08:58 Time: 08:59 02/28/25 08:58 Patient unable to answer at this time (ie. 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 Hx Now No 02/28/25 08:58 Gestational Age (in weeks): EDC: Hx Hx Para Hx Section SAB No 02/28/25 08:58 Active Medications Active Medications: Current Medications Generic Name Dose Route Start Last Admin Trade Name Freq PRN Reason Stop Dose Admin Cefazolin Sodium 2 gm/ Sodium 110 mls @ 200 mls/hr 03/14/25 07:30 Chloride IV 03/14/25 08:02 INTRAOP ONE Lactated Ringer's 1,000 mls @ 15 mls/hr 03/14/25 06:15 03/14/25 06:15 IV 15 mls/hr .Q48H ISAAC Administration PFSH Medical History History of Kolb's esophagus Back problem Tinnitus Wears glasses Cancer High cholesterol History of hiatal hernia CPAP (continuous positive airway pressure) dependence Non-smoker Leg cramps History of echocardiogram History of stress test Cardiology follow-up encounter Hyperlipidemia Hypothyroidism GERD (gastroesophageal reflux disease) Osteopenia Osteoarthritis Neuropathy Breast cancer Arthritis Home Medications ?Medication ?Instructions ?Recorded ?Last Taken ?Type calcium-magnesium 750 mg-465 mg 1 tab PO DAILY 5 Unknown History tablet magnesium carb,citrate,oxide 100 mg PO DAILY 12/08/24 Unknown History (Magnesium Complex) ezetimibe 10 mg tablet (Zetia) 10 mg PO QDAY #30 tabs 12/20/24 03/14/25 Rx famotidine 20 mg tablet 20 mg PO QHS #90 tabs Unknown Rx esomeprazole magnesium 40 mg 40 mg PO QDAY #90 caps 03/14/25 Rx capsule,delayed release Allergy/AdvReac Type Severity Reaction Status Date / Time Iodinated Contrast Media Allergy Itching Verified 03/14/25 06:22 (Iodinated Contrast Media - IV Dye) rosuvastatin AdvReac Myalgia Verified 03/14/25 06:22 Family History Mother Breast cancer Father Myocardial infarction, Onset Age: 42 Heart disease Hypertension High cholesterol Grandmother CVA (cerebral vascular accident) Sister Breast cancer Aunt Breast cancer Surgical History Hx of colonoscopy History of esophagogastroduodenoscopy (EGD) Hx of right cataract extraction Hx of left cataract extraction History of right knee joint replacement History of tonsillectomy History of surgery on right wrist History of bilateral carpal tunnel release History of foot surgery History of shoulder surgery H/O bilateral mastectomy History of hysterectomy Social History Smoking Status: Never smoker alcohol intake: current alcohol intake frequency: a few times a week substance use type: does not use caffeine: Yes Type: coffee Number of servings: 6 what type of physical activity do you participate in: none additional social history: pt denies vaping, denies marijuana use, denies edibles pt denies blood clots Review of Systems (Anesthesia) ROS Narrative System reviewed and no additional complaints, except as documented. 03/14/25 0731 <Electronically signed by Aaron mcdonnell MD> Date _ Aaron Malone MD Cosigner Signature: Date CC: ~ Signed [facility] Work Phone: 1(751) 314-968009-30-2025 History and physical note Author Jessie Jiménez [facility] Note Date/Time March 14, 2025 7:28am [facility] Medical Records Department [address] [place] [address] H&P Exam - Surgical 03/14/25 0723 MR#: [id number] Acct: [id number] Name: TARIK DUNHAM Rep #:[id number] : 1950 75 From: Jessy LOPEZ PCP: Dr. Garo Steele MD Status:R [facility] Location: [place] [address] HPI - General HPI Narrative TARIK DUNHAM, is a 75 F who was seen in consultation for mucous cyst on the leftindex finger. The cyst has been present for approximately three months and is associated with drainage of a sticky substance, particularly when wet with associated swelling, soreness. The patient initially thought it was a wart and has been applying a topical treatment for 10 days as advised. The patient also reports a history of tendon rupture in the right hand, leading to numbness and pain, which she suspects might be related to nerve damage or carpal tunnel syndrome. She experiences numbness in the fingertips and uses gabapentin at night for relief. Since her previous visit she reports no changes in her medications, health status. Recently her cyst was swelling and causing achiness she states she "popped" it and has some drainage again. Denies redness, fever, chills, new numbness, tingling. ROS: - Dermatological: Reports mucous cyst on the left index finger with drainage. - Neurological: Reports numbness and pain in the right hand, particularly in thefingertips. [facility] Medical History (Updated 02/28/25 @ 09:05 by Luna Gomez) History of Kolb's esophagus Back problem Tinnitus Wears glasses Cancer High cholesterol History of hiatal hernia CPAP (continuous positive airway pressure) dependence Non-smoker Leg cramps History of echocardiogram History of stress test Cardiology follow-up encounter Hyperlipidemia Hypothyroidism GERD (gastroesophageal reflux disease) Osteopenia Osteoarthritis Neuropathy Breast cancer Arthritis Home Medications ?Medication ?Instructions ?Recorded ?Last Taken ?Type calcium-magnesium 750 mg-465 mg 1 tab PO DAILY 5 Unknown History tablet magnesium carb,citrate,oxide 100 mg PO DAILY 12/08/24 Unknown History (Magnesium Complex) ezetimibe 10 mg tablet (Zetia) 10 mg PO QDAY #30 tabs 12/20/24 03/14/25 Rx famotidine 20 mg tablet 20 mg PO QHS #90 tabs Unknown Rx esomeprazole magnesium 40 mg 40 mg PO QDAY #90 caps 03/14/25 Rx capsule,delayed release Allergy/AdvReac Type Severity Reaction Status Date / Time Iodinated Contrast Media Allergy Itching Verified 03/14/25 06:22 (Iodinated Contrast Media - IV Dye) rosuvastatin AdvReac Myalgia Verified 03/14/25 06:22 Family History Mother Breast cancer Father Myocardial infarction, Onset Age: 42 Heart disease Hypertension High cholesterol Grandmother CVA (cerebral vascular accident) Sister Breast cancer Aunt Breast cancer Surgical History (Updated 02/28/25 @ 09:05 by Luna Gomez) Hx of colonoscopy History of esophagogastroduodenoscopy (EGD) Hx of right cataract extraction Hx of left cataract extraction History of right knee joint replacement History of tonsillectomy History of surgery on right wrist History of bilateral carpal tunnel release History of foot surgery History of shoulder surgery H/O bilateral mastectomy History of hysterectomy Social History Smoking Status: Never smoker alcohol intake: current alcohol intake frequency: a few times a week substance use type: does not use caffeine: Yes Type: coffee Number of servings: 6 what type of physical activity do you participate in: none additional social history: pt denies vaping, denies marijuana use, denies edibles pt denies blood clots ROS ROS Narrative General: Denies fever, chills HEENT: Denies headaches, vision changes, sore throat Cardio: Denies chest pain, leg edema Pulmonary: Denies shortness of pain, cough, wheezing GI: Denies nausea, vomiting, diarrhea Vital Signs Vital Signs Vital Signs: 03/14/25 06:25 03/14/25 06:25 Temperature 97.5 F L Temperature Source Temporal Pulse Rate 57 L Respiratory Rate 16 Respiratory Pattern Normal Blood Pressure 121/77 H Blood Pressure Mean 91 Blood Pressure Source Monitor Blood Pressure Position Sitting Blood Pressure Location Left Arm Pulse Ox 100 Oxygen Delivery Method Room Air Weight Weight: 149 lb Body Mass Index (BMI) 24.7 Physical Exam Narrative Afebrile/VSS. Alert and oriented in bed in no acute distress No respiratory distress, speaks in full sentences without effort. Abdomen soft in all 4 quadrants Left upper extremity Left index finger mucoid cyst that is open without surrounding induration, erythema. Able to flex, extend MCP, PIP, difficulty with full DIP flexion due to swelling. Capillary refill less than 2 seconds, skin is pink, well-perfused. Assessment & Plan Assessment/Plan (1) Mucous cyst of digit of left hand: PLAN: Plan Presents today for elective left index finger mucoid cyst excision with Dr. Newell Plan for perioperative prophylactic antibiotic followed by oral antibiotics upondischarge today Will discharge with short course of oral oxycodone as well. Close follow-up. 03/14/25727 <Electronically signed by Jessy LOPEZ> Cosigner Signature (if applicable): CC: Dr. Garo Steele MD; JESSICA Mahajan~ Signed [facility] Work Phone: 1(604) 399-167609-30-2025 Procedure note [facility] Medical Records Department [address] [place] [address] Operative Report 03/14/25 0745 MR#: [id number] Acct: [id number] Name: TARIK DUNHAM Rep #:[id number] : 1950 75 From: Jimmie Newell MD PCP: Dr. Garo Steele MD Status:R [facility] Location: [place] [address] Operative Report (Standard) Operative Information Date of Procedure: 03/14/25 Pre-Operative Diagnosis: Left index finger mucous cyst Post-Operative Diagnosis: Same Surgery/Procedure Performed: 1) Excision left index finger mucous cyst mobile application engineer: Yes Supervisor Lime: Jessy Roman Tasks completed by first coat sander: Retracting Type of Anesthesia: Local MAC (7 cc of 50-50 mixture of 1% lidocaine with quarter percent Marcaine) RN Documented Start/Stop Times: Operation Date: 03/14/25 07:30 Case Time Into Pre-Op 03/14/25 06:11 Out of Pre-Op 03/14/25 07:32 Anesthesia Start 03/14/25 07:39 Into Room 03/14/25 07:39 Procedure Start 03/14/25 07:56 Procedure End 03/14/25 08:22 Anesthesia End 03/14/25 08:25 Out of Room 03/14/25 08:25 Into Recovery 03/14/25 08:29 Into Phase II Recovery 03/14/25 08:44 Out of Recovery 03/14/25 08:44 Procedure Start Time: 07:56 Procedure Stop Time: 08:22 Select all DRAINS/GRAFTS/IMPLANTS that apply: None Estimated Blood Loss: Minimal Specimen collected: Yes Description of specimen(s) removed: Cyst stalk and osteophyte contents Description of surgery: Indications: Patient is a 75-year-old female with a draining mucous cyst in the eponychial fold of the left index finger. She presents today for excision. She understands the risks, benefits, and alternatives to the procedure, as well as the plan to debride the cyst stalk and osteophytes around the joint and let the cyst involute over time (no direct excision). Procedure details: Patient was correct identified in preoperative holding and taken back to the operating room where she was administered sedation and local anesthesia as notedabove. She was prepped and draped in sterile fashion and all proper timeouts were performed. A 15 blade scalpel was used to make a direct incision over theDIP joint dorsally after turnicot was applied (care was taken to remove the turnicot atthe end of the case). Dorsal veins were cauterized with bipolar electrocautery and care was taken to preserve the terminal slip insertion. 15 blade scalpel was used to enter the joint between the collateral ligaments and the terminal slip on the radial and ulnar aspects. A curette was used to debride osteophytes from within the joint and debride the stalk that was underneath the eponychial fold (where the cyst skin was present). The stalk andsome osteophyte material was sent to pathology. The wound was irrigated with copious amounts normal saline and Irrisept. The turnicot was removed and hemostasis obtained with topical 1% lidocaine with 1-200,000 epinephrine (10 cc). The wound was closed with interrupted 4-0 nylon sutures and Xeroform, Verito, AlumaFoam splint (DIP joint extension) and Coban were applied. Patient tolerated the procedure well. She was awakened taken the PACU in stable condition. Postoperative plan: Continue DIP joint extension splinting for 1 month. Follow-up in 2 days for wound check before the weekend. She is prescribed 1 week of Keflex. Surgical Findings: Cyst stalk coming from the ulnar aspect of the dorsal DIP joint. Complications Complications: No 03/14/25901 Cosigner Signature (if applicable): CC: Dr. Jimmie Newell MD; Dr. Garo Steele MD~ Signed [facility]09-30-2025 Consult note [facility] Medical Records Department [address] [place] [address] Anesthesia Postop Eval I 03/14/25811 MR#: [id number] Acct: [id number] Name: TARIK DUNHAM Rep #:[id number] : 1950 75 From: Elzbieta Roblero CRNA PCP: Dr. Garo Steele MD Status:R EG SDC Y Race: C Location: [place] [address] Anesthesia: Postop Eval I Current Vital Signs Temperature: 98.7 F Pulse Rate: 62 Blood Pressure: 141/68 Respiratory Rate: 14 Pulse Ox: 97 Oxygen Delivery Method: Room Air Assessment Airway patent: Yes Spontaneous unlabored respirations: Yes Mental status: Awake nausea: No Vomiting: No Anesthesia Complication: No Fluid Hydration Crystalloid volume administer (ml): 500 Total IV fluid infused: 500 Progress Note Anesthesia document: Postop Eval 1 completed: Yes 03/14/25829 NA> Date _ Elzbieta Roblero CRNA Cosigner Signature: Date CC: ~ Signed [facility]09-30-2025 Progress note [facility] Medical Records Department [address] [place] [address] Progress Note - Surgery 03/14/25 0734 MR#: [id number] Acct: [id number] Name: TARIK DUNHAM Rep #:[id number] : 1950 75 From: Jimmie Newell MD PCP: Dr. Garo Steele MD Status:R [facility] Location: [place] [address] Subjective Subjective Patient has some baseline collateral ligament and slight DIP droop (mallet) in the left index finger. I discussed this with her in preoperative holding and she understands the baseline deformity and plan for incision over DIP joint with involution of the cyst over time after the underlying stock/osteophytes are debrided. She understands risks, benefits, and alternatives to the procedure. Objective Data Objective Data Vital Signs: Vital Signs Temp Pulse Resp BP Pulse Ox O2 Del Method 97.5 F L 57 L 16 121/77 H 100 Room Air 03/14/25 07:31 03/14/25 07:31 03/14/25 07:31 03/14/25 07:31 03/14/25 07:31 03/14/25 07:31 Oxygen Delivery Method Room Air Weight: 149 lb Body Mass Index (BMI) 24.7 03/14/25 0735 Cosigner Signature (if applicable): CC: ~ Signed [facility]09-30-2025 Consult note [facility] Medical Records Department [address] [place] [address] Pre-Anesthesia Evaluation 03/14/25 0718 MR#: [id number] Acct: [id number] Name: TARIK DUNHAM Rep #:[id number] : 1950 75 From: Aaron Malone MD PCP: Dr. Garo Steele MD Status:[facility] Y Race: C Location: [place] [address] ASA Classification* ASA Classification ASA Classification: 2 Assessment & Plan Anesthesia* Anesthesia Assessment Anesthesia Assessment: Discussed sedation and/or anesthesia options, risks, benefits, and alternatives with patient/parents/legal guardian/POA. Questions invited. The patient/parents/legal guardian/POA seems to understand and agrees to proceedwith anesthesia plan. Reviewed the physical assessment, medical history, allergy history and patient home medications list prior to surgery/procedure/anesthetic and documented any changes. Performed airway and anesthesia risk assessments. Anesthesia Type Anesthesia Type: MAC History Source History Obtained from:: Patient and Chart Anesthesia Focused Assessment* Temperature: 97.5 F Pulse Rate: 57 Blood Pressure: 121/77 Respiratory Rate: 16 Pulse Ox: 100 Oxygen Delivery Method: Room Air Airway Assessment Mouth opens: >3 cm Mallampati Score: II Teeth Condition: Intact Neck Range of motion (ROM): Limited ROM (Slight Decrease) Labs Anesthesia Preop lab: CBC WBC, (4.4-11.0) 5.2 K/mm3 01/29/22, 11:01 RBC, (4.2-5.4) 4.07 M/mm3 L 01/29/22, 11:01 Hgb, (12.0-15.0) 12.3 g/dL 01/29/22, 11:01 Hct, (37-47) 37.4 % 01/29/22, 11:01 Plt Count, (150-450) 288 K/mm3 01/29/22, 11:01 CHEMISTRY Potassium, (3.5-5.1) 4.5 mmol/L 01/29/22, 11:01 Sodium, (136-145) 142 mmol/L 01/29/22, 11:01 BUN, (7-18) 15 mg/dL 01/29/22, 11:01 Creatinine, (0.55-1.02) 0.84 mg/dL 01/29/22, 11:01 Glucose, (74-106) 99 mg/dL 01/29/22, 11:01 TSH, (0.358-3.74) 3.40 uIU/mL 01/29/22, 11:01 COAG Pre-Assessment Diagnosis/Proposed Procedure Planned Operative Procedure(s): EXCISION MUCOUS CYST LEFT INDEX FINGER Anesthesia History 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 When Was Last Pacemaker Check QUESTION #4 FULL TEXT: You/Your Family Experience fever (hyperthermia) with Anesthesia Last Oral Intake Last Oral intake: Last Oral Intake NPO since 05:00 03/14/25 06:25 Meds taken in AM with sips of water? Meds patient instructed to take am of surgery Any additional information?: Yes NPO since: 05:00 (Patient had black coffee at 5AM.) Meds taken in AM with sips of water?: Yes PONV PONV - electronic controls repairer supervisor: PONV - electronic controls repairer supervisor Female Yes 02/28/25 08:58 HX of Motion Sickness No 02/28/25 08:58 HX of N/V After Surgery No 02/28/25 08:58 Non-Smoker Yes 02/28/25 08:58 Duration of Surgery greater No 02/28/25 08:58 than 60 minutes Number of Risk Factors 2 02/28/25 08:58 PONV Score Moderate Risk 02/28/25 08:58 Height & Weight Height & Weight: Anesthesia: Height & Weight Height 5 ft 5 in 03/14/25 06:25 Weight: 67.585 kg 03/14/25 06:25 Body Mass Index (BMI) 24.7 03/14/25 06:25 Respiratory Assessment Respiratory Assessment - electronic controls repairer supervisor: Respiratory Tract Infection Hx - electronic controls repairer supervisor Hx Respiratory Tract Infection No 02/28/25 08:58 STOP Sleep Apnea STOP Sleep Apnea - electronic controls repairer supervisor: STOP Sleep Apnea - electronic controls repairer supervisor Hx Hypertension No 02/28/25 08:58 Hx Sleep Apnea Yes 02/28/25 08:58 CPAP Yes 02/28/25 08:58 BIPAP No 02/28/25 08:58 Do you snore loudly (louder than talking or can be heard Do you often feel tired/ fatigued/ sleepy during daytime? Has anyone observed you stop breathing during sleep? STOP Results Positive 02/28/25 08:58 QUESTION #5 FULL TEXT : Do you snore loudly (louder than talking or can be heard through closeddoors)? 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 Specify any problems Hx of Preganancy in last 3 No 02/28/25 08:58 Months Nurse Filling Out Transfusion DSCHRIBER 02/28/25 08:58 & Questions: Date: 02/28/25 02/28/25 08:58 Time: 08:59 02/28/25 08:58 Patient unable to answer at this time (ie. 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 Hx Now No 02/28/25 08:58 Gestational Age (in weeks): EDC: Hx Hx Para Hx Section SAB No 02/28/25 08:58 Active Medications Active Medications: Current Medications Generic Name Dose Route Start Last Admin Trade Name Freq PRN Reason Stop Dose Admin Cefazolin Sodium 2 gm/ Sodium 110 mls @ 200 mls/hr 03/14/25 07:30 Chloride IV 03/14/25 08:02 INTRAOP ONE Lactated Ringer's 1,000 mls @ 15 mls/hr 03/14/25 06:15 03/14/25 06:15 IV 15 mls/hr .Q48H ISAAC Administration PFSH Medical History History of Kolb's esophagus Back problem Tinnitus Wears glasses Cancer High cholesterol History of hiatal hernia CPAP (continuous positive airway pressure) dependence Non-smoker Leg cramps History of echocardiogram History of stress test Cardiology follow-up encounter Hyperlipidemia Hypothyroidism GERD (gastroesophageal reflux disease) Osteopenia Osteoarthritis Neuropathy Breast cancer Arthritis Home Medications ?Medication ?Instructions ?Recorded ?Last Taken ?Type calcium-magnesium 750 mg-465 mg 1 tab PO DAILY 5 Unknown History tablet magnesium carb,citrate,oxide 100 mg PO DAILY 12/08/24 Unknown History (Magnesium Complex) ezetimibe 10 mg tablet (Zetia) 10 mg PO QDAY #30 tabs 12/20/24 03/14/25 Rx famotidine 20 mg tablet 20 mg PO QHS #90 tabs Unknown Rx esomeprazole magnesium 40 mg 40 mg PO QDAY #90 caps 03/14/25 Rx capsule,delayed release Allergy/AdvReac Type Severity Reaction Status Date / Time Iodinated Contrast Media Allergy Itching Verified 03/14/25 06:22 (Iodinated Contrast Media - IV Dye) rosuvastatin AdvReac Myalgia Verified 03/14/25 06:22 Family History Mother Breast cancer Father Myocardial infarction, Onset Age: 42 Heart disease Hypertension High cholesterol Grandmother CVA (cerebral vascular accident) Sister Breast cancer Aunt Breast cancer Surgical History Hx of colonoscopy History of esophagogastroduodenoscopy (EGD) Hx of right cataract extraction Hx of left cataract extraction History of right knee joint replacement History of tonsillectomy History of surgery on right wrist History of bilateral carpal tunnel release History of foot surgery History of shoulder surgery H/O bilateral mastectomy History of hysterectomy Social History Smoking Status: Never smoker alcohol intake: current alcohol intake frequency: a few times a week substance use type: does not use caffeine: Yes Type: coffee Number of servings: 6 what type of physical activity do you participate in: none additional social history: pt denies vaping, denies marijuana use, denies edibles pt denies blood clots Review of Systems (Anesthesia) ROS Narrative System reviewed and no additional complaints, except as documented. 03/14/25 0731 sathya COLEMAN> Date _ Aaron Malone MD Cosigner Signature: Date CC: ~ Signed [facility]09-30-2025 History and physical note [facility] Medical Records Department [address] [place] [address] H&P Exam - Surgical 03/14/25 0723 MR#: [id number] Acct: [id number] Name: TARIK DUNHAM Rep #:[id number] : 1950 75 From: Jessy LOPEZ PCP: Dr. Garo Steele MD Status:R [facility] Location: [place] [address] HPI - General HPI Narrative TARIK DUNHAM, is a 75 F who was seen in consultation for mucous cyst on the leftindex finger. The cyst has been present for approximately three months and is associated with drainage of a sticky substance, particularly when wet with associated swelling, soreness. The patient initially thought it was a wart and has been applying a topical treatment for 10 days as advised. The patient also reports a history of tendon rupture in the right hand, leading to numbness and pain, which she suspects might be related to nerve damage or carpal tunnel syndrome. She experiences numbness in the fingertips and uses gabapentin at night for relief. Since her previous visit she reports no changes in her medications, health status. Recently her cyst was swelling and causing achiness she states she "popped" it and has some drainage again. Denies redness, fever, chills, new numbness, tingling. ROS: - Dermatological: Reports mucous cyst on the left index finger with drainage. - Neurological: Reports numbness and pain in the right hand, particularly in thefingertips. [facility] Medical History (Updated 02/28/25 @ 09:05 by Luna Gomez) History of Kolb's esophagus Back problem Tinnitus Wears glasses Cancer High cholesterol History of hiatal hernia CPAP (continuous positive airway pressure) dependence Non-smoker Leg cramps History of echocardiogram History of stress test Cardiology follow-up encounter Hyperlipidemia Hypothyroidism GERD (gastroesophageal reflux disease) Osteopenia Osteoarthritis Neuropathy Breast cancer Arthritis Home Medications ?Medication ?Instructions ?Recorded ?Last Taken ?Type calcium-magnesium 750 mg-465 mg 1 tab PO DAILY 5 Unknown History tablet magnesium carb,citrate,oxide 100 mg PO DAILY 12/08/24 Unknown History (Magnesium Complex) ezetimibe 10 mg tablet (Zetia) 10 mg PO QDAY #30 tabs 12/20/24 03/14/25 Rx famotidine 20 mg tablet 20 mg PO QHS #90 tabs Unknown Rx esomeprazole magnesium 40 mg 40 mg PO QDAY #90 caps 03/14/25 Rx capsule,delayed release Allergy/AdvReac Type Severity Reaction Status Date / Time Iodinated Contrast Media Allergy Itching Verified 03/14/25 06:22 (Iodinated Contrast Media - IV Dye) rosuvastatin AdvReac Myalgia Verified 03/14/25 06:22 Family History Mother Breast cancer Father Myocardial infarction, Onset Age: 42 Heart disease Hypertension High cholesterol Grandmother CVA (cerebral vascular accident) Sister Breast cancer Aunt Breast cancer Surgical History (Updated 02/28/25 @ 09:05 by Luna Gomez) Hx of colonoscopy History of esophagogastroduodenoscopy (EGD) Hx of right cataract extraction Hx of left cataract extraction History of right knee joint replacement History of tonsillectomy History of surgery on right wrist History of bilateral carpal tunnel release History of foot surgery History of shoulder surgery H/O bilateral mastectomy History of hysterectomy Social History Smoking Status: Never smoker alcohol intake: current alcohol intake frequency: a few times a week substance use type: does not use caffeine: Yes Type: coffee Number of servings: 6 what type of physical activity do you participate in: none additional social history: pt denies vaping, denies marijuana use, denies edibles pt denies blood clots ROS ROS Narrative General: Denies fever, chills HEENT: Denies headaches, vision changes, sore throat Cardio: Denies chest pain, leg edema Pulmonary: Denies shortness of pain, cough, wheezing GI: Denies nausea, vomiting, diarrhea Vital Signs Vital Signs Vital Signs: 03/14/25 06:25 03/14/25 06:25 Temperature 97.5 F L Temperature Source Temporal Pulse Rate 57 L Respiratory Rate 16 Respiratory Pattern Normal Blood Pressure 121/77 H Blood Pressure Mean 91 Blood Pressure Source Monitor Blood Pressure Position Sitting Blood Pressure Location Left Arm Pulse Ox 100 Oxygen Delivery Method Room Air Weight Weight: 149 lb Body Mass Index (BMI) 24.7 Physical Exam Narrative Afebrile/VSS. Alert and oriented in bed in no acute distress No respiratory distress, speaks in full sentences without effort. Abdomen soft in all 4 quadrants Left upper extremity Left index finger mucoid cyst that is open without surrounding induration, erythema. Able to flex, extend MCP, PIP, difficulty with full DIP flexion due to swelling. Capillary refill less than 2 seconds, skin is pink, well-perfused. Assessment & Plan Assessment/Plan (1) Mucous cyst of digit of left hand: PLAN: Plan Presents today for elective left index finger mucoid cyst excision with Dr. Newell Plan for perioperative prophylactic antibiotic followed by oral antibiotics upondischarge today Will discharge with short course of oral oxycodone as well. Close follow-up. 03/14/25727 Cosigner Signature (if applicable): CC: Dr. Garo Steele MD; JESSICA Mahajan~ Signed [facility]09-18-2025 NoteHNO ID: [id number] Author: ?, ?, ? Service: ? Author Type: ? Type: Progress Notes Filed: 03/02/2025 11:59 Note Text: [facility]09-18-2025 NoteHNO ID: [id number] Author: BUD STONE MD Service: ? Author Type: Physician Type: Progress Notes Filed: 03/02/2025 11:52 Note Text: SURGICAL SERVICES HISTORY AND PHYSICAL EXAMINATION SERVICE DATE: 03/02/2025 SERVICE TIME: 11:08 AM PRIMARY CARE PHYSICIAN: Garo Steele MD SUBJECTIVE CHIEF COMPLAINT: wants a second opinion HISTORY OF PRESENT ILLNESS: Mrs. Dunham is a 74 year old female with a PMH of breast CA (s/p mastectomy w/ reconstruction), GERD, hiatal hernia, dysphagia, HLD, osteopenia, OA, Kolb's esophagus who presents for surgical consultation. Surgical [...] 6-7 years. When she moved back to [place] 5 years ago her symptoms of GERD [...] BREAST RECONSTRUCTION Bilateral 12/2016 Dr. Gastelum in [place] TONSILLECTOMY PRIMARY/SECONDARY Tonsillectomy TOTAL KNEE REPLACEMENT Right 03/24/2023 [facility] VAG HYST 250 GM/< W/RMVL TUBEAND/OVARY 12/22/2013 TVH/BSO WRIST RIGHT OP SURGERY Right 2018 ORIF Wrist fracture FAMILY HISTORY: FAMILY HISTORY Problem Relation Age of Onset Cancer Mother breast Heart Father [place] Osteoporosis Sister Osteopenia Osteoporosis Sister Osteopenia Hypertension Paternal Grandmother Stroke Paternal Grandmother No Known Problems Daughter No Known Problems Son SOCIAL HISTORY: SOCIAL HISTORY[1] (more content not included)...[facility]08-25-2025 Note* Addendum Note - Jaylan Gan PA-C - 02/06/2025 9:44 AM EDTAddended by: JAYLAN GAN on: 02/06/2025 09:44 AM Modules accepted: Orders [id number] Note* Addendum Note - Jaylan Gan PA-C - 02/06/2025 9:44 AM EDTAddended by: JAYLAN GAN on: 02/06/2025 09:44 AM Modules accepted: Orders [id number] Note* Addendum Note - Jaylan Gan PA-C - 02/06/2025 9:44 AM EDTAddended by: JAYLAN GAN on: 02/06/2025 09:44 AM Modules accepted: Orders [id number] Miscellaneous Notes* Addendum Note - JOANNA Lord - 02/06/2025 9:44 AM EDTAddended by: JAYLAN GAN on: 02/06/2025 09:44 AM Modules accepted: Orders * Addendum Note - Erick Wilder LPN - 02/06/2025 9:33 AM EDTAddended by: ERICK WILDER on: 02/06/2025 09:33 AM Modules accepted: Orders * Telephone Encounter - Erick Wilder LPN - 02/06/2025 9:32 AM EDT Just until 03-24-25 Please sign * Telephone Encounter - Parul Hernandez - 02/06/2025 9:26 AM EDT Name of caller: Tarik Contact phone number: [phone] Relationship to Patient: patient Provider: Isaías Practice: Ortho Chief Complaint/Reason for Call: Patient called in stating she has a dental cleaning appointment for tomorrow 02/07- wondering if she still needs a dental prophyaxis prior too. She is s/p left tka on 03/24/2023. If she does please send antibiotic to [facility] pharmacy in [place]. If she no longer needs the antibiotic please upload a letter in her mychart to show to the dental clinic as she does not havethe fax number at this time. Best time of day caller can be reached: any Patient advised that office/PCP has 24-48 business hours to return their call: No documented in this [facility]08-25-2025 Note* Addendum Note - Erick Wilder LPN - 02/06/2025 9:33 AM EDTAddended by: ERICK WILDER on: 02/06/2025 09:33 AM Modules accepted: Orders [address]Tnatir07-17-2264 Note* Addendum Note - Erick Wilder LPN - 02/06/2025 9:33 AM EDTAddended by: ERICK WILDER on: 02/06/2025 09:33 AM Modules accepted: Orders [id number] Note* Addendum Note - Erick Wilder LPN - 02/06/2025 9:33 AM EDTAddended by: ERICK WILDER on: 02/06/2025 09:33 AM Modules accepted: Orders [id number] Telephone encounter Note* Telephone Encounter - Erick Wilder LPN - 02/06/2025 9:32 AM EDT Just until 03-24-25 Please sign [id number] Telephone encounter Note* Telephone Encounter - Parul Hernandez - 02/06/2025 9:26 AM EDT Name of caller: Tarik Contact phone number: [phone] Relationship to Patient: patient Provider: Isaías Practice: [facility] Chief Complaint/Reason for Call: Patient called in stating she has a dental cleaning appointment for tomorrow 02/07- wondering if she still needs a dental prophyaxis prior too. She is s/p left tka on 03/24/2023. If she does please send antibiotic to [facility] pharmacy in [place]. If she no longer needs the antibiotic please upload a letter in her mychart to show to the dental clinic as she does not havethe fax number at this time. Best time of day caller can be reached: any Patient advised that office/PCP has 24-48 business hours to return their call: No [facility] [id number] History of Present illness Narrative* Lisseth Cardona RPh - 01/27/2025 2:20 PM EDT Patient is identified through a medication adherence outreach initiative based on pharmacy claims data from: [employer] Medication Adherence Category: Statins Statin Medication: Lab Results Component Value Date LDL 142 (H) 10/14/2024 LDL 107 (H) 11/30/2019 LDL 117 (H) 08/04/2018 Rosuvastatin 5 mg daily Per director of pharmacy outreach encounter on 01/27/25: Spoke to pt and pt state she didn't think she should still be taking because doctor start her on Ezetimibe. Pharmacist escalation reasons: Confusion from provider's directions Per chart review: Neither rosuvastatin nor Zetia are listed on [facility] EPIC med list. Appears patient is following with outside provider, Dangelo Cevallos CNP, for hyperlipidemia management. Unable to review chart notes, but per reconcile dispense does appear Zetia was last dispensed 01/2025 and rosuvastatin last dispensed 12/08/24. Will clarify with patient. First Attempt Outreach consists of: Unable to reach via phone, [employer]t message sent Outcome of review: Pending patient outreach Lisseth Cardona RPh [facility] Team * Lisseth Cardona RPh - 01/27/2025 2:20 PM EDT Second Attempt Outreach consists of: Spoke with patient - she is unsure if statin was stopped but confirms she is only taking Zetia at this time. Med list updated. She will call Dangelo Cevallos CNP to confirm and update PCP care team viaMyChart, if needed. Outcome of review: Adherence concern addressed Lisseth Cardona RPh [facility] Team [facility]25 NoteHNO ID: [id number] Author: LISSETH CARDNOA RPh Service: ? Author Type: Pharmacist Type: Progress Notes Filed: 01/30/2025 11:30 Note Text: Second Attempt Outreach consists of: Spoke with patient - she is unsure if statin was stopped but confirms she is only taking Zetia at this time. Med list updated. She will call Dangelo Cevallos CNP to confirm and update PCP care team via MyChart, if needed. Outcome of review: Adherence concern addressed Lisseth Cardona RPh [facility]-2025 NoteHNO ID: [id number] Author: LISSETH CARDONA RPh Service: ? Author Type: Pharmacist Type: Progress Notes Filed: 01/30/2025 11:30 Note Text: Patient is identified through a medication adherence outreach initiative based on pharmacy claims data from: [employer] Medication Adherence Category: Statins Statin Medication: Lab Results Component Value Date LDL 142 (H) 10/14/2024 LDL 107 (H) 11/30/2019 LDL 117 (H) 08/04/2018 Rosuvastatin 5 mg daily Per director of pharmacy outreach encounter on 01/27/25: Spoke to pt and pt state she didn't think she should still be taking because doctor start her on Ezetimibe. Pharmacist escalation reasons: Confusion from provider's directions Per chart review: Neither rosuvastatin nor Zetia are listed on [facility] EPIC med list. Appears patient is following with outside provider, Dangelo Cevallos CNP, for hyperlipidemia management. Unable to review chart notes, but per reconcile dispense does appear Zetia was last dispensed 01/2025 and rosuvastatin last dispensed 12/08/24. Will clarify with patient. First Attempt Outreach consists of: Unable to reach via phone, [employer]t message sent Outcome of review: Pending patient outreach Lisseth Cardona [facility] TeamU[facility]08-15-2025 NoteHNO ID: [id number] Author: ESTRELLA SOLITARIO CPhT Service: ? Author Type: Switchboard Operator Supervisor Type: Progress Notes Filed: 01/27/2025 15:25 Note Text: Patient is identified through a medication adherence outreach initiative based on pharmacy claims data from: [employer] Medication Adherence Category: Statins Second Attempt Medication(s) Rosuvastatin 5 mg 1 tab daily Last Filled 11/21/24 for 30 DS, Next fill due 12/20/24 Medication Status per portal/Epic "Reconcile Dispense": Not filled Medication Status per Profile Review: No issues per profile review Patient identified by name and Outreach to patient: Spoke to patient Med Adherence Concern: Spoke to pt and pt state she didn't think she should still be taking because doctor start her on Ezetimibe. What was primary intervention? Escalate to pharmacist - adherence Estrella Solitario CPhT [facility]08-[facility]-2025 History of Present illness Narrative* Estrella Solitario CPhT - 01/27/2025 10:54 AM EDT Patient is identified through a medication adherence outreach initiative based on pharmacy claims data from: [employer] Medication Adherence Category: Statins Second Attempt Medication(s) Rosuvastatin 5 mg 1 tab daily Last Filled 11/21/24 for 30 DS, Next fill due 12/20/24 Medication Status per portal/Epic "Reconcile Dispense": Not filled Medication Status per Profile Review: No issues per profile review Patient identified by name and Outreach to patient: Spoke to patient Med Adherence Concern: Spoke to pt and pt state she didn't think she should still be taking becausedoctor start her on Ezetimibe. What was primary intervention? Escalate to pharmacist - adherence Estrella Solitario CPhT [facility] Pharmacy Team documented in this encounter[facility]25 NotePatient Outreach (PHPOHE) TARIK DUNHAM ([id number]) 1950 F Date Time Provider Department 01/27/25 GARO STEELE PHPOHE During your visit today, we recorded the following information about you: Estrella Solitario CPhT 01/27/2025 3:25 PM Signed Patient is identified through a medication adherence outreach initiative based on pharmacy claims data from: [employer] Medication Adherence Category: Statins Second Attempt Medication(s) Rosuvastatin 5 mg 1 tab daily Last Filled 11/21/24 for 30 DS, Next fill due 12/20/24 Medication Status per portal/Epic "Reconcile Dispense": Not filled Medication Status per Profile Review: [...] - Itching Date Reviewed: 10/28/2024 Reviewed by: Nabil Kim APRN.CYBER ENGINEER - Fully Assessed Reason for Visit: Allied [...] powder, diclofenac sodium powder, gabapentin powder, lidocaine CARE HOME powder in cream base (CPD) Apply 1-2 g to affected area four times a day as needed. Baclofen2%;smihtmkrzx12%;nqpsrtatvp87%;lidocaine6%. Per Altaf Metz MD (orthopedics). - gabapentin [...] [M1*03/30/2024 Encounter Status:Closed by ESTRELLA SOLITARIO on 01/27/25[facility] 01-27-2025 NotePatient Outreach (PHPOHE) TARIK DUNHAM ([id number]) 1950 F Date Time Provider Department 01/27/25 LISSETH CARDONA PHPOHE During your visit today, we recorded the following information about you: Lisseth Cardona RPh 01/30/2025 11:30 AM Signed Patient is identified through a medication adherence outreach initiative based on pharmacy claims data from: [employer] Medication Adherence Category: Statins Statin Medication: Lab Results Component Value Date LDL 142 (H) 10/14/2024 LDL 107 (H) 11/30/2019 LDL 117 (H) 08/04/2018 Rosuvastatin 5 mg daily Per director of pharmacy outreach encounter on 01/27/25: Spoke to pt and pt state she didn't think she should still be taking because doctor start her on Ezetimibe. Pharmacist escalation reasons: Confusion from provider's directions Per chart review: Neither rosuvastatin nor Zetia are listed on [facility] med list. Appears patient is following with outside provider, Dangelo Cevallos CNP, for hyperlipidemia management. Unable to review chart notes, but per reconcile dispense does appear Zetia was last dispensed 01/2025 and rosuvastatin last dispensed 12/08/24. Will clarify with patient. First Attempt Outreach consists of: Unable to reach via phone, [employer] message sent Outcome of review: Pending patient outreach Lisseth Cardona RPh [facility] Pharmacy Team Lisseth Cardona RPh 01/30/2025 11:30 AM Signed Second Attempt Outreach consists of: Spoke with patient - she is unsure if statin was stopped but confirms she is only taking Zetia at this time. Med list updated. She will call Dangelo Cevallos CNP to confirm and update PCP care team via [employer]t, if needed. Outcome of review: Adherence concern addressed Lisseth Cardona [facility] Pharmacy Team Allergies As of Date: 01/27/2025 Noted Allergy Reaction IODINATED CONTRAST MEDIA 12/15/2013 9 - Itching Date Reviewed: 10/28/2024 Reviewed by: Nabil Kim APRN.CYBER ENGINEER - Fully Assessed Reason for Visit: Allied [...] powder, diclofenac sodium powder, gabapentin powder, lidocaine CARE HOME powder in cream base (CPD) Apply 1-2 g to affected area four times a day as needed. Baclofen2%;hqicykwxvf04%;yldmklewav13%;lidocaine6%. Per Altaf Metz MD (orthopedics). - gabapentin [...] osteoarthritis, left hip [M1*03/30/2024 Encounter Status:Closed by LISSETH CARDONA on 01/30/25[facility] 01-20-2025 NoteHNO ID: [id number] Author: BENEDICTO TAO CPhT Service: ? Author Type: Switchboard Operator Supervisor Type: Progress Notes Filed: 01/20/2025 13:02 Note Text: Patient is identified through a medication adherence outreach initiative based on pharmacy claims data from: [employer] Medication Adherence Category: Statins First Review Attribution Status: Correct attribution Medication(s) Rosuvastatin 5 mg Medication Status per portal/Epic "Reconcile Dispense": Not filled Medication Status per Profile Review: No issues per profile review Patient/provider appropriate for outreach? Yes Patient identified by name and Outreach to patient: Left Voicemail/message for return call What was primary intervention? No intervention Sent/Responded to [facility] What was primary intervention? Remind patient to pick pack worker or fill Benedicto Tao CPhT [facility] NotePatient Outreach (PHPOHE) TARIK DUNHAM ([id number]) 1950 F Date Time Provider Department 01/20/25 GARO STEELE PHPOHE During your visit today, we recorded the following information about you: Benedicto Tao CPhT 01/20/2025 1:02 PM Signed Patient is identified through a medication adherence outreach initiative based on pharmacy claims data from: [employer] Medication Adherence Category: Statins First Review Attribution Status: Correct attribution Medication(s) Rosuvastatin 5 mg Medication Status per portal/Epic "Reconcile Dispense": Not filled Medication Status per Profile Review: No issues per profile review Patient/provider appropriate for outreach? Yes Patient identified by name and Outreach to patient: Left Voicemail/message for return call What was primary intervention? No intervention Sent/Responded to [employer] What was primary intervention? Remind patient to pick pack worker or fill Benedicto Tao CPhT [facility] Pharmacy Team Allergies As of Date: 01/20/2025 Noted Allergy Reaction IODINATED CONTRAST MEDIA 12/15/2013 9 - Itching Date Reviewed: 10/28/2024 Reviewed by: Nabil Kim APRN.CYBER ENGINEER - Fully Assessed Reason for Visit: Allied [...] powder, diclofenac sodium powder, gabapentin powder, lidocaine CARE HOME powder in cream base (CPD) Apply 1-2 g to affected area four times a day as needed. Baclofen2%;svbnntexcw70%;%;lidocaine6%. Per Altaf Metz MD (orthopedics). - gabapentin [...] osteoarthritis, left hip [M1*03/30/2024 Encounter Status:Closed by BENEDICTO TAO on 01/20/25[facility] 01-11-2025 NoteHNO ID: [id number] Author: ESTRELLA SOLITARIO CPhT Service: ? Author Type: Switchboard Operator Supervisor Type: Progress Notes Filed: 01/11/2025 12:13 Note Text: Patient is identified through a medication adherence outreach initiative based on pharmacy claims data from: [employer] Medication Adherence Category: Statins First Review Attribution Status: Questionable attribution, Med NOT prescribed by [facility] provider, but Have [facility] PCP Medication(s) Rosuvastatin 5 mg 1 tab daily Due 12/20/24 last filled 11/21/24 for 30 ds Medication Status per portal/Epic "Reconcile Dispense": Not filled Medication Status per Profile Review: No issues per profile review Patient/provider appropriate for outreach? Yes Patient identified by name and Outreach to patient: Left Voicemail/message for return call What was primary intervention? No intervention Sent/Responded to [facility] What was primary intervention? Remind patient to pick pack worker or fill Questionable attribution, Med NOT prescribed by [facility] provider, but Have [facility] PCP Estrella Solitario CPhT [facility] History of Present illness Narrative* Estrella Solitario CPhT - 01/11/2025 11:53 AM EDT Patient is identified through a medication adherence outreach initiative based on pharmacy claims data from: [employer] Medication Adherence Category: Statins First Review Attribution Status: Questionable attribution, Med NOT prescribed by [facility] provider, but Have [facility] PCP Medication(s) Rosuvastatin 5 mg 1 tab daily Due 12/20/24 last filled 11/21/24 for 30 ds Medication Status per portal/Epic "Reconcile Dispense": Not filled Medication Status per Profile Review: No issues per profile review Patient/provider appropriate for outreach? Yes Patient identified by name and Outreach to patient: Left Voicemail/message for return call What was primary intervention? No intervention Sent/Responded to [employer] What was primary intervention? Remind patient to pick pack worker or fill Questionable attribution, Med NOT prescribed by [facility] provider, but Have [facility] PCP Estrella Solitario CPhT Value Based Care Pharmacy Team documented [facility] NotePatient Outreach (PHPOHE) TARIK DUNHAM ([id number]) 1950 F Date Time Provider Department 01/11/25 GARO STEELE PHPOHE During your visit today, we recorded the following information about you: Estrlela Solitario CPhT 01/11/2025 12:13 PM Signed Patient is identified through a medication adherence outreach initiative based on pharmacy claims data from: [employer] Medication Adherence Category: Statins First Review Attribution Status: Questionable attribution, Med NOT prescribed by [facility] provider, but Have [facility] PCP Medication(s) Rosuvastatin 5 mg 1 tab daily Due 12/20/24 last filled 11/21/24 for 30 ds Medication Status per portal/Epic "Reconcile Dispense": Not filled Medication Status per Profile Review: No issues per profile review Patient/provider appropriate for outreach? Yes Patient identified by name and Outreach to patient: Left Voicemail/message for return call What was primary intervention? No intervention Sent/Responded to [facility] What was primary intervention? Remind patient to pick pack worker or fill Questionable attribution, Med NOT prescribed by [facility] provider, but Have [facility] PCP Estrella Solitario CPhT Value Based Care Pharmacy Team Allergies As of Date: 01/11/2025 Noted Allergy Reaction IODINATED CONTRAST MEDIA 12/15/2013 9 - Itching Date Reviewed: 10/28/2024 Reviewed by: Nabil Kim APRN.CYBER ENGINEER - Fully Assessed Reason for Visit: Allied [...] powder, diclofenac sodium powder, gabapentin powder, lidocaine CARE HOME powder in cream base (CPD) Apply 1-2 g to affected area four times a day as needed. Baclofen2%;vbkqttazay55%;ngmcznikki59%;lidocaine6%. Per Altaf Metz MD (orthopedics). - gabapentin [...] [M1*03/30/2024 Encounter Status:Closed by ESTRELLA SOLITARIO on 01/11/25[facility] 01-[facility] Evaluation note* Diagnosis Onset Date Resolution Status Admit Date 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 January 03, 2025 1:07pm Difficulty swallowing chronic Dec 1:07pm Throat clearing chronic December 1:07pm Globus sensation acute January 132024 8:04am 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 January 23 8:04am GERD (gastroesophageal reflux disease) chronic January 23 8:04am Throat clearing chronic January 232024 8:04am Mucous cyst of digit of left hand acute January 31 1:49pm Mucous cyst of digit of left hand acute March 14, 2025 5:59am Mucous cyst of digit of left hand acute March 17 10:13am Mucous cyst of digit of left hand acute March 24 10:01am Mucous cyst of digit of left hand acute March 28 1:37pm [employer] Work Phone: 1(274) 306-959407-18-2025 Procedure note [facility] [address] [place] [address] Modified Barium Swallow Study MR#: [id number] Acct: [id number] Name: TARIK DUNHAM Rep #:[id number] : 1950 74 From: Sherrell Du, [facility]-SPORTS COMPLEX ATTENDANT Modified Barium Swallow Patient Information Study Date: 12/29/24 Study Time: 13:00 Direct Billable Minutes: 78 Total Minutes procedure & reportin Diagnosis: Dysphagia R13.10 Referring Physician: Le Harris Reason for Referral: Assess swallow function, assess risk for aspiration, and determine recommendations for least restrictive diet textures and compensatory strategies to improve safety of swallow. Medical History: Pt was referred from GI for swallowing difficulty characterized by food and drink feeling caught inher lower esophagus, including painful episode ~1 month ago w/ hamburger. Liquid wash does not typically help, but waiting and relaxing will help foods to clear. She reports sometimes coughing due tosensation of food being caught chest-level in her esophagus. She denies sensation of food/drink going down the wrong way. No hx of PNA. Her swallowing difficulty occurs daily. EGD 12/09/2024 ??- LA Grade B reflux esophagitis with no bleeding. Biopsied. - Abnormal esophageal motility. - Moderate Schatzki ring. Dilated. - Medium-sized hiatal hernia. - No gross lesions in the second portion of the duodenum.? 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 Current Diet Ordered: Regular textures / Thin liquids Dentition: Natural Teeth Mental Status: WNL Respiratory Status: Oxygenating on Room Air Penetration-Aspiration Scale Penetration-Aspiration Scale: OBJECTIVE ASSESSMENT OF SWALLOW FUNCTION (QUANTITATIVE ? PER TRIAL): PENETRATION / ASPIRATION SCALE (WREN): 1 = does not enter airway 2 = enters airway/above vocal folds/ejected 3 = enters airway/above vocal folds/not ejected 4 = enters airway/contacts vocal folds/ejected 5 = enters airway/contacts vocal folds/not ejected 6 = enters airway/below vocal folds/ejected 7 = enters airway/below vocal folds/not ejected despite effort 8 = enters airway/below vocal folds/no effort VIDEOFLOROSCOPIC SCALE SCORE (WREN): Grade I = aspiration of material that has penetrated into the laryngeal vestibule, intact cough reflex Grade II = aspiration < 10 % of the bolus, intact cough reflex Grade III = aspiration of < 10 % of the bolus, reduced cough reflex or aspiration of > 10 % of the bolus, intact cough reflex Grade IV = aspiration of > 10 % of the bolus, reduced cough reflex Penetration-Aspiration Scale Score Thin Liquid via teaspoon: Result: 1= does not enter airway Thin Liquid via teaspoon Trial 2: Result: 1= does not enter airway Thin Liquid via small single sip: cup: Result: 1= does not enter airway Thin Liquid via sequential sips: cup: Result: 1= does not enter airway Comment: Esophageal screen - Retention in the middle and lower esophagus w/ retrograde flow. Pudding via teaspoon: Result: 1= does not enter airway Comment: Esophageal screen - Retention in the lower esophagus w/ retrograde flow to the middle esophagus. 1/2 Cookie: Result: 1= does not enter airway Comment: Esophageal screen - Retention in the lower esophagus. Thin Liquid via single sip: straw: Result: 1= does not enter airway Comment: Esophageal screen - Liquid wash mostly cleared barium through the LES. Barium Tablet - Water: Result: 1= does not enter airway Comment: Esophageal screen - Complete clearance. Oral Phase Labial Seal: No Labial Escape Tongue Control During Bolus Hold: Posterior escape of less than half of bolus Bolus Preparation/Mastication: Timely and efficient chewing and mashing Bolus Transport/Lingual Motion: Brisk tongue motion Oral Residue: Residue collection on oral structures Pharyngeal Phase Initiation of Pharyngeal Swallow: Bolus head in pyriforms Soft Palate Elevation: Trace column of contrast/air between soft palate and pharyngeal wall Laryngeal Elevation: Comp. Superior move thyroid cart w/comp. apprx arytenoid cart-epig pet Anterior Hyoid Excursion: Partial anterior movement Epiglottic Movement: Complete inversion Laryngeal Vestibule Closure at Height of Swallow: Complete; no air/contrast in laryngeal vestibule Pharyngeal Stripping Wave: Present - diminished Pharyngoesophageal Segment Opening: Complete distension and complete duration; no obstruction of flow Tongue Base Retraction: Narrow column of contrast between tongue base & post. pharyngeal wall Pharyngeal Residue: Collection of residue within or on pharyngeal structures Esophageal Phase Esophageal Clearance: Esophageal retention w/ retrograde flow below pharyngoesophageal seg. Diagnosis/Impression Diagnosis: Esophageal dysphagia R13.14; Mild pharyngeal dysphagia R13.13 Impression: The oral phase is grossly WNL. Posterior loss of <1/2 of large thin liquids to the pyriforms. Mild oral residue of pudding that fully cleared w/ a second swallow. The pharyngeal phase is marked by... -Mild delay in swallow onset w/ large liquid sips. -Mildly decreased pharyngeal motility w/ liquid sips due to decreased TB retraction and pharyngeal stripping wave resulting in mild pharyngeal residues. The esophageal phase is marked by... -Retention of sequential sips of liquids in the middle and lower esophagus w/ retrograde flow. -Retention of pudding in the lower esophagus w/ retrograde flow to the middle esophagus. -Retention of cookie in the lower esophagus, which mostly cleared w/ liquid wash. Recommendations Diet: Regular Textures and Thin Liquids Compensatory Strategies: Small Bites, Small Sips, Slow Rate (Bites/sips one at atime), Alternate bites/solids and sips/liquids (1:1 ratio) and Sitting upright (60 min after po intake) Recommend Repeat Modified Barium Swallow: No Need for Skilled Speech Therapy Services: Yes Comment: Train pt in lifestyle GERD management strategies. Train pt in pharyngeal exercise program to improve swallow onset and pharyngeal motility (xiao [place], Ebenezer). Status Active ST Patient: Active Contact Information [facility] Speech Therapy:: Sherrell Black M.A. CCC-SPORTS COMPLEX ATTENDANT? Speech-Language Pathologist?? [facility] [address] [place] [address]? [email or web address]?? [phone] 12/30/24 0843 RENATO Nelson-SPORTS COMPLEX ATTENDANT> Date/Time Sherrell Black M.A. CCC-SPORTS COMPLEX ATTENDANT Co-Signature Required for all Medicare patients Date/Time Co-Signature CC: ~ [facility]06-30-2025 Discharge summary Author Anel Blanco [facility] Note Date/Time December 12, 2024 7:00 pm [facility] Physical Therapy [facility] [address] [place] [address] / REHABILITATION SERVICES DISCHARGE SUMMARY MR#: [id number] Acct: [id number] Name: TARIK DUNHAM Rep #: [id number] : 1950 74 From: Anel Vines Referring Dr.: Dr. Garo Steele MD Status : REG RCR Insurance: [employer] P[employer] SELF PAY INSURANCE Discharge Summary D/C summary: It has been my pleasure to treat TARIK DUNHAM referred by Dr. Garo Steele MD, with the diagnosis of Unilateral L hip OA for a total of 8 visit(s). Discharge Date: 12/12/24 Please see the following information for a summary of their discharge status. Subjective Subjective: Pt thinks that some of her leg pain is coming from the DDD in her hip. She is just not sure. She has not gotten stronger and she still gets the catches when she turns the wrong way. I hurt all over. Will make an appt with her DrHarriet Pain L hip pain: Pain Intensity (Out of 10): 5 Overall Improvement % Improvement: 0 Objective Objective/Function: Pt walks with decrease stance time on the L LE and increase veering at times. Goals Goal 1:: I HEP Goal 2:: BE ABLE TO GET UP FROM THE FLOOR WITH USING HER LEGS ONLY TO GET UP Goal Progress: Not Progressing Goal 3:: Decrease L hip overall pain Goal Progress: Not Progressing Goal 4:: Increase balance (FGA at eval was 19) (worse with horizontal head turns, walking BW, walking with EC) Goal Progress: Not Progressing Plan Plan: 2X/ week for 6 weeks for neutral spine core stability, LE strength (to be able to go up steps easier and get self off the ground easier), Hip flexor stretching, functional transfers, with HEP and indep gym routine. HEP: bridges and supine off the side Ashwin stretch D/C Information Discharge Comments: DC PT back to d/balwinder sentence: If there are questions or concerns regarding this patient's physical therapy, please feel free to call me at [phone]. Thank you for the referral of thispatient. Sincerely, WATSON Meneses Balance/Gait/Functional tests Balance/Special Test Scores Functional Gait Assessment Score: 19 % Disability: 36.6700 Lower Extremity Functional Score: 36 Improvement % Improvement: 0 <Electronically signed by Anel Blanco MPT> 12/12/24 1052 CC: Dr. Garo Steele MD ~ Signed [facility] Work Phone: 1(813) 307-956706-30-2025 Discharge summary [facility] Physical Therapy [facility] [address] [place] [address]. [address] [place] [address] / REHABILITATION SERVICES DISCHARGE SUMMARY MR#: [id number] Acct: [id number] Name: TARIK DUNHAM Rep #: [id number] : 1950 74 From: Anel Blanco MP T Referring Dr.: Dr. Garo Steele MD Status : REG RCR Insurance: [employer] PPO SELF PAY INSURANCE Discharge Summary D/C summary: It has been my pleasure to treat TARIK DUNHAM referred by Dr. Garo Steele MD, with the diagnosis of Unilateral L hip OA for a total of 8 visit(s). Discharge Date: 12/12/24 Please see the following information for a summary of their discharge status. Subjective Subjective: Pt thinks that some of her leg pain is coming from the DDD in her hip. She is just not sure. She has not gotten stronger and she still gets the catches when she turns the wrong way. I hurt all over. Will make an appt with her Dr. Pain L hip pain: Pain Intensity (Out of 10): 5 Overall Improvement % Improvement: 0 Objective Objective/Function: Pt walks with decrease stance time on the L LE and increase veering at times. Goals Goal 1:: I HEP Goal 2:: BE ABLE TO GET UP FROM THE FLOOR WITH USING HER LEGS ONLY TO GET UP Goal Progress: Not Progressing Goal 3:: Decrease L hip overall pain Goal Progress: Not Progressing Goal 4:: Increase balance (FGA at eval was 19) (worse with horizontal head turns, walking BW, walking with EC) Goal Progress: Not Progressing Plan Plan: 2X/ week for 6 weeks for neutral spine core stability, LE strength (to be able to go up stepseasier and get self off the ground easier), Hip flexor stretching, functional transfers, with HEP and indep gym routine. HEP: bridges and supine off the side Ashwin stretch D/C Information Discharge Comments: DC PT back to d/balwinder sentence: If there are questions or concerns regarding this patient's physical therapy, please feel free to call me at [phone]. Thank you for the referral of thispatient. Sincerely, Anel Blanco, MPT Balance/Gait/Functional tests Balance/Special Test Scores Functional Gait Assessment Score: 19 % Disability: 36.6700 Lower Extremity Functional Score: 36 Improvement % Improvement: 0 12/12/24 1052 CC: Dr. Garo Steele MD ~ Signed [facility]06-27-2025 Consult note Author Fátima Colin [facility] Note Date/Time December 09, 2024 3:10 pm [facility] Medical Records Department [address] [address] Anesthesia Postop Eval II 12/09/24 1510 MR#: [id number] Acct: [id number] Name: TARIK DUNHAM Rep #:[id number] : 1950 74 From: Fátima Colin CRNA PCP: Dr. Garo Steele MD Status:[facility] Y Race: C Location: [place] [address] Anesthesia Postop Eval I Sum Postop Eval Completion status Anesthesia document: Postop Eval 1 completed: Yes Anesthesia Postop Eval I Summary Anesthesia Postop Eval I Summary: Anesthesia Postop Eval I: Assessment Summary Airway patent Yes 12/09/24 12:15 COMMUNITY RELATIONS ASSISTANT.CSIR Spontaneous unlabored Yes 12/09/24 12:15 COMMUNITY RELATIONS ASSISTANT.CSIR respirations Mental status nausea No 12/09/24 12:15 COMMUNITY RELATIONS ASSISTANT.CSIR Vomiting No 12/09/24 12:15 COMMUNITY RELATIONS ASSISTANT.CSIR Anesthesia Postop Eval I: Fluid Summary Crystalloid volume administer 500 12/09/24 12:15 COMMUNITY RELATIONS ASSISTANT.CSIR (ml) Colloids volume administered ( ml) Blood Product volume administered (ml) Total IV fluid infused 500 12/09/24 12:15 COMMUNITY RELATIONS ASSISTANT.CSIR Anesthesia Postop Eval I: Summary Notes Anesthesia Complication No 12/09/24 12:15 COMMUNITY RELATIONS ASSISTANT.CSIR Anesthesia Complication Comment: Post-operative progress note Anesthesia: Postop Eval II Evaluation Mental status: Awake Pain Level: 0 nausea: No Vomiting: No 12/09/24 151 <Electronically signed by Fátima carmona CRNA> Date _ Fátima Colin CRNA Cosigner Signature: Date CC: ~ Signed [facility] Work Phone: 1(144) 932-470106-27-2025 Consult note [facility] Medical Records Department [address] [address] [place] [address] Anesthesia Postop Eval II 12/09/24 1510 MR#: [id number] Acct: [id number] Name: TARIK DUNHAM Rep #:[id number] : 1950 74 From: Fátima Colin CRNA PCP: Dr. Garo Steele MD Status:R [facility] Y Race: C Location: [place] [address] Anesthesia Postop Eval I Sum Postop Eval Completion status Anesthesia document: Postop Eval 1 completed: Yes Anesthesia Postop Eval I Summary Anesthesia Postop Eval I Summary: Anesthesia Postop Eval I: Assessment Summary Airway patent Yes 12/09/24 12:15 COMMUNITY RELATIONS ASSISTANT.CSIR Spontaneous unlabored Yes 12/09/24 12:15 COMMUNITY RELATIONS ASSISTANT.CSIR respirations Mental status nausea No 12/09/24 12:15 COMMUNITY RELATIONS ASSISTANT.CSIR Vomiting No 12/09/24 12:15 COMMUNITY RELATIONS ASSISTANT.CSIR Anesthesia Postop Eval I: Fluid Summary Crystalloid volume administer 500 12/09/24 12:15 COMMUNITY RELATIONS ASSISTANT.CSIR (ml) Colloids volume administered ( ml) Blood Product volume administered (ml) Total IV fluid infused 500 12/09/24 12:15 COMMUNITY RELATIONS ASSISTANT.CSIR Anesthesia Postop Eval I: Summary Notes Anesthesia Complication No 12/09/24 12:15 COMMUNITY RELATIONS ASSISTANT.CSIR Anesthesia Complication Comment: Post-operative progress note Anesthesia: Postop Eval II Evaluation Mental status: Awake Pain Level: 0 nausea: No Vomiting: No 12/09/24 1510 a COMMUNITY RELATIONS ASSISTANT> Date _ Fátima Colin COMMUNITY RELATIONS ASSISTANT Cosigner Signature: Date CC: ~ Signed [facility]06-27-2025 Consult note Author Fátima Colin [facility] Note Date/Time December 09, 2024 12:4 7pm [facility] Medical Records Department [address] [place] [address] Anesthesia Postop Eval I 12/09/24 1215 MR#: [id number] Acct: [id number] Name: TARIK DUNHAM Rep #:[id number] : 1950 74 From: Fátima Colin CRNA PCP: Dr. Garo Steele MD Status:Curtis GUEVARA Y Race: C Location: [address] Anesthesia: Postop Eval I Current Vital Signs Temperature: 98.1 F Pulse Rate: 79 Blood Pressure: 100/78 Respiratory Rate: 20 Pulse Ox: 98 Assessment Airway patent: Yes Spontaneous unlabored respirations: Yes nausea: No Vomiting: No Anesthesia Complication: No Fluid Hydration Crystalloid volume administer (ml): 500 Total IV fluid infused: 500 Progress Note Anesthesia document: Postop Eval 1 completed: Yes 12/09/24 1215 <Electronically signed by Fátima carmona COMMUNITY RELATIONS ASSISTANT> Date _ Fátima Colin COMMUNITY RELATIONS ASSISTANT Cosigner Signature: Date CC: ~ Signed [facility] Work Phone: 1(245) 800-634606-27-2025 Consult note Author [facility] Note Date/Time December 09, 2024 11:3 7am [facility] Medical Records Department [address] [place] [address] Pre-Anesthesia Evaluation 12/09/24 1132 MR#: [id number] Acct: [id number] Name: TARIK DUNHAM Rep #:[id number] : 1950 74 From: Aaron Malone MD PCP: Dr. Garo Steele MD Status:Curtis GUEVARA Y Race: C Location: [place] [address] ASA Classification* ASA Classification ASA Classification: 2 Assessment & Plan Anesthesia* Anesthesia Assessment Anesthesia Assessment: Discussed sedation and/or anesthesia options, risks, benefits, and alternatives with patient/parents/legal guardian/POA. Questions invited. The patient/parents/legal guardian/POA seems to understand and agrees to proceedwith anesthesia plan. Reviewed the physical assessment, medical history, allergy history and patient home medications list prior to surgery/procedure/anesthetic and documented any changes. Performed airway and anesthesia risk assessments. Anesthesia Type Anesthesia Type: MAC History Source History Obtained from:: Patient and Chart Anesthesia Focused Assessment* Temperature: 98.6 F Pulse Rate: 63 Blood Pressure: 142/79 Respiratory Rate: 16 Pulse Ox: 98 Oxygen Delivery Method: Room Air Airway Assessment Mouth opens: >3 cm Mallampati Score: III Teeth Condition: Intact Neck Range of motion (ROM): Full ROM Labs Anesthesia Preop lab: CBC WBC 5.2 K/mm3 (4.4-11.0) 01/29/22 11:01 01/29/22 RBC 4.07 M/mm3 (4.2-5.4) L 01/29/22 11:01 01/29/22 Hgb 12.3 g/dL (12.0-15.0) 01/29/22 11:01 01/29/22 Hct 37.4 % (37-47) 01/29/22 11:01 01/29/22 Plt Count 288 K/mm3 (150-450) 01/29/22 11:01 01/29/22 CHEMISTRY Potassium 4.5 mmol/L (3.5-5.1) 01/29/22 11:01 01/29/22 Sodium 142 mmol/L (136-145) 01/29/22 11:01 01/29/22 BUN 15 mg/dL (7-18) 01/29/22 11:01 01/29/22 Creatinine 0.84 mg/dL (0.55-1.02) 01/29/22 11:01 01/29/22 Glucose 99 mg/dL (74-106) 01/29/22 11:01 01/29/22 TSH 3.40 uIU/mL (0.358-3.74) 01/29/22 11:01 COAG Pre-Assessment Diagnosis/Proposed Procedure Planned Operative Procedure(s): EGD Anesthesia History 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 When Was Last Pacemaker Check QUESTION #4 FULL TEXT: You/Your Family Experience fever (hyperthermia) with Anesthesia Last Oral Intake Last Oral intake: Last Oral Intake NPO since 06:30 12/09/24 11:02 Meds taken in AM with sips of No 12/09/24 11:02 water? Meds patient instructed to take am of surgery Any additional information?: Yes NPO since: 07:00 (Patient had black coffee at 7AM.) Meds taken in AM with sips of water?: No PONV PONV - electronic controls repairer supervisor: PONV - electronic controls repairer supervisor Female Yes 12/08/24 09:04 HX of Motion Sickness No 12/08/24 09:04 HX of N/V After Surgery No 12/08/24 09:04 Non-Smoker Yes 12/08/24 09:04 Duration of Surgery greater No 12/08/24 09:04 than 60 minutes Number of Risk Factors 2 12/08/24 09:04 PONV Score Moderate Risk 12/08/24 09:04 Height & Weight Height & Weight: Anesthesia: Height & Weight Height 5 ft 5 in 12/09/24 11:02 Weight: 67 kg 12/09/24 11:02 Body Mass Index (BMI) 24.5 12/09/24 11:02 Respiratory Assessment Respiratory Assessment - electronic controls repairer supervisor: Respiratory Tract Infection Hx - electronic controls repairer supervisor Hx Respiratory Tract Infection No 12/08/24 09:04 STOP Sleep Apnea STOP Sleep Apnea - electronic controls repairer supervisor: STOP Sleep Apnea - electronic controls repairer supervisor Hx Hypertension No 12/08/24 09:04 Hx Sleep Apnea Yes 12/08/24 09:04 CPAP Yes 12/08/24 09:04 BIPAP No 12/08/24 09:04 Do you snore loudly (louder than talking or can be heard Do you often feel tired/ fatigued/ sleepy during daytime? Has anyone observed you stop breathing during sleep? STOP Results Positive 12/08/24 09:04 QUESTION #5 FULL TEXT : Do you snore loudly (louder than talking or can be heard through closed doors)? 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 - electronic controls repairer supervisor: Tobacco Use History - electronic controls repairer supervisor Tobacco Use Smoking Status Never smoker 12/08/24 09:04 Hx Tobacco Use No 12/08/24 09:04 Years Smoking Packs Smoked per Day Smoking Cessation Date was within the last 15 years Hx Smoking Cessation Date Hx Smoking Cessation Counseling Hematologic Medial History Hematologic Hx - electronic controls repairer supervisor: Hematologic Medical Hx - teaseler Hx of Blood Transfusion No 12/08/24 09:04 Hx of Transfusion in last 3 No 12/08/24 09:04 Months Date of Last Transfusion (if within last 3 months) Ever experience any problems No 12/08/24 09:04 with transfusion(s)? Specify any problems Hx of Preganancy in last 3 N/A 12/08/24 09:04 Months Nurse Filling Out Transfusion NBUCHER 12/08/24 09:04 & Questions: Date: 12/08/24 12/08/24 09:04 Time: 09:12/08/24 09:04 Patient unable to answer at this time (ie. 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 Hx Now No 12/08/24 09:04 Gestational Age (in weeks): EDC: Hx Hx Para Hx Section SAB No 12/08/24 09:04 Active Medications Active Medications: Current Medications Generic Name Dose Route Start Last Admin Trade Name Freq PRN Reason Stop Dose Admin Lactated Ringer's 1,000 mls @ 15 mls/hr 12/09/24 10:45 12/09/24 11:06 IV 15 mls/hr .Q48H ISAAC Administration PFSH Medical History Tinnitus Wears glasses Cancer High cholesterol History of hiatal hernia CPAP (continuous positive airway pressure) dependence Non-smoker Leg cramps History of echocardiogram History of stress test Cardiology follow-up encounter Thyroid nodule Hyperlipidemia Hypothyroidism GERD (gastroesophageal reflux disease) Osteopenia Osteoarthritis Neuropathy Carpal tunnel syndrome Cataracts, bilateral Breast cancer Arthritis Seasonal allergies Home Medications ?Medication ?Instructions ?Recorded ?Last Taken ?Type calcium 500 mg (as 1 tab PO DAILY 09/22/22 Unkn own History carbonate)-vitamin D3 3.125 mcg (125 unit) tablet gabapentin 300 mg capsule 300 mg PO QHS 11/21/22 Unkno wn History famotidine 20 mg tablet 20 mg PO QHS #30 tabs Unknown Rx omeprazole 20 mg capsule,delayed 20 mg PO BID #60 caps 11/14/24 Unknown Rx release rosuvastatin 5 mg tablet 5 mg PO QDAY #30 tabs Unknown Rx calcium-magnesium 750 mg-465 mg 1 tab PO DAILY 5 Unknown History tablet magnesium carb,citrate,oxide 100 mg PO DAILY 12/08/24 Unknown History (Magnesium Complex) Allergy/AdvReac Type Severity Reaction Status Date / Time Iodinated Contrast Media Allergy Itching Verified 12/09/24 11:01 (Iodinated Contrast Media - IV Dye) Family History Mother Breast cancer Father Myocardial infarction, Onset Age: 42 Heart disease Hypertension High cholesterol Grandmother CVA (cerebral vascular accident) Sister Breast cancer Aunt Breast cancer Surgical History History of right knee joint replacement History of tonsillectomy History of surgery on right wrist History of bilateral carpal tunnel release History of foot surgery History of shoulder surgery H/O bilateral mastectomy History of hysterectomy Social History Smoking Status: Never smoker alcohol intake: current alcohol intake frequency: a few times a week substance use type: does not use caffeine: Yes Type: coffee Number of servings: 6 what type of physical activity do you participate in: none Review of Systems (Anesthesia) ROS Narrative System reviewed and no additional complaints, except as documented. 12/09/24 1137 <Electronically signed by Aaron mcdonnell MD> Date _ Aaron Malone MD Cosigner Signature: Date CC: ~ Signed [facility] Work Phone: 1(325) 192-288706-27-2025 History and physical note Author Gomez Friend [facility] Note Date/Time December 09, 2024 11:0 6am [facility] Medical Records Department [address] [place] [address] History & Physical Exam 12/09/24 1103 MR#: [id number] Acct: [id number] Name: TARIK DUNHAM Rep #:[id number] : 1950 74 From: Gomez Friend DO PCP: Dr. Garo Steele MD Status:R [facility] Location: [place] [address] HPI - General General Date of Admission: 12/09/24 Date of Service: 12/09/24 Chief Complaint: dysphagia HPI Narrative TARIK DUNHAM, is a 74 F who presents regarding concerns for difficulty swallowing. She states that she's been having swallowing trouble for over 20yrs.She had every swallowing test known to man 6 years ago and they couldn't find anything specific." She states that she took herself off of pantoprazole as she "didn't notice a difference while on it." She reports that she has a globus sensation at the top of her throat but the food "gets stuck" at the lower esophagus. She reports the most recent episode was with a bite of hamburger. Shedoes remember exactly how long it was stuck, but "it felt like forever." She wasunable to get liquids down past the food bolus. She reports that it did eventually pass on its own. She reports a frequent cough, throat clearing, increased sinus drainage, heartburn, and abdominal bloating. She denies food allergies and sensitivities, denies having asthma. She denies difficulty chewing, nausea, emesis, reflux, constipation, diarrhea, hematochezia, and melena. ROS Const Constitutional: No chills, fatigue, fever(s) or weight change Eyes Eyes: No change in vision ENT ENT: Positive for difficulty swallowing; No abnormal hearing Resp Respiratory: Positive for cough Cardio Cardiology: No chest pain at rest, chest pain with exertion or leg pain with exertion Gastro GI: Positive for bloating, difficulty swallowing and excessive flatus; No abdominal pain, belching, change in bowel habits, change in stool character, coffee ground emesis, constipation, cramping, diarrhea, heartburn, feeling full early, incontinent of stools, Vomiting blood/hematemesis, Blood in stool, loose stools, Black,tarry stools, nausea/dyspepsia, pain with swallowing, vomiting or other Musc Musculoskeletal: Positive for joint pain, back pain, numbness, stiffness, tingling, Arthritis and sciatica; No leg pain with exertion Skin Skin: No yellowing of the eye or itchy eyes Neuro Neurology: Positive for numbness and tingling; No abnormal hearing Psych Psychiatric: No anxiety and No depression Endo Endocrine: No cold intolerance, fatigue, heat intolerance or weight change Aller/Imm Allergy/Immunologic: No food intolerance or itchy eyes Cal/Lymp Hematologic/Lymphatic: No easy bleeding or easy bruising Exam Const General: cooperative, healthy appearing, comfortable, no acute distress and wellgroomed Nutritional Appearance: average body habitus Orientation: alert and oriented x3 [facility] Head: normal to inspection Ears: hearing grossly normal bilaterally Eyes General: appearance normal, both eyes and all related structures Sclera: sclerae normal Neck Neck: normal visual inspection and full ROM Chest Chest palpation & inspection: normal inspection of the chest Resp Effort & Inspection: normal respiratory effort, able to speak in complete sentences and symmetric chest movement GI Inspection: normal to inspection Skin General: no rashes or lesions noted Neuro General: patient alert, patient oriented x3 and moves all extremities Cognition: normal cognition Speech: speech normal Gait: normal gait Extrem General: full ROM Psych Appearance: well kempt Mental Status: mental status grossly normal Mood: congruent mood Judgment: judgment good Assessment and Plan Assessment and Plan (1) Difficulty swallowing: Status: Acute Qualifiers: Dysphagia type: unspecified Qualified Code(s): R13.10 - Dysphagia, unspecified (2) Throat clearing: Status: Acute (3) Globus sensation: Status: Acute Orders: Orders Swallowing Function w/Video Today R09.89 - Other specified symptoms and signs involving the circulatory and respiratory systems, R09.A2 - Foreign body sensation, throat, R13.10 - Dysphagia, unspecified Medications: New omeprazole Take 30minutes before eating breakfast and dinner. 20 mg PO BID 60 caps 2RF famotidine 20 mg PO QHS 30 tabs 0RF Plan TARIK TASSO, is a 74 F who presents to the office today for establishment with [facility] regarding concerns for difficulty swallowing. She states that she's been having swallowing trouble for over 20yrs. She had "every swallowing test known to man 6 years ago and they couldn't find anything specific." She states that she took herself off of pantoprazole as she "didn't notice a difference while onit." She reports that she has a globus sensation at the top of her throat but the food "gets stuck" at the lower esophagus. Discussed care plan with her. * change pantoprazole to omeprazole 20mg PO twice daily 30minutes before breakfast and dinner * add famotidine 20mg PO QHS * swallowing function w/video * esophageal manometry * schedule EGD * consider Botox v. amitriptyline v. diltiazem * office FU 1 wk after endoscopy PFSH Medical History Tinnitus Wears glasses Cancer High cholesterol History of hiatal hernia CPAP (continuous positive airway pressure) dependence Non-smoker Leg cramps History of echocardiogram History of stress test Cardiology follow-up encounter Thyroid nodule Hyperlipidemia Hypothyroidism GERD (gastroesophageal reflux disease) Osteopenia Osteoarthritis Neuropathy Carpal tunnel syndrome Cataracts, bilateral Breast cancer Arthritis Seasonal allergies Home Medications ?Medication ?Instructions ?Recorded ?Last Taken ?Type calcium 500 mg (as 1 tab PO DAILY 09/22/22 Unkn own History carbonate)-vitamin D3 3.125 mcg (125 unit) tablet gabapentin 300 mg capsule 300 mg PO QHS 11/21/22 Unkno wn History famotidine 20 mg tablet 20 mg PO QHS #30 tabs Unknown Rx omeprazole 20 mg capsule,delayed 20 mg PO BID #60 caps 11/14/24 Unknown Rx release rosuvastatin 5 mg tablet 5 mg PO QDAY #30 tabs Unknown Rx calcium-magnesium 750 mg-465 mg 1 tab PO DAILY 5 Unknown History tablet magnesium carb,citrate,oxide 100 mg PO DAILY 12/08/24 Unknown History (Magnesium Complex) Allergy/AdvReac Type Severity Reaction Status Date / Time Iodinated Contrast Media Allergy Itching Verified 12/09/24 11:01 (Iodinated Contrast Media - IV Dye) Family History Mother Breast cancer Father Myocardial infarction, Onset Age: 42 Heart disease Hypertension High cholesterol Grandmother CVA (cerebral vascular accident) Sister Breast cancer Aunt Breast cancer Surgical History History of right knee joint replacement History of tonsillectomy History of surgery on right wrist History of bilateral carpal tunnel release History of foot surgery History of shoulder surgery H/O bilateral mastectomy History of hysterectomy Social History Smoking Status: Never smoker alcohol intake: current alcohol intake frequency: a few times a week substance use type: does not use caffeine: Yes Type: coffee Number of servings: 6 what type of physical activity do you participate in: none ROS Constitutional Constitutional: Denies fatigue, fever(s), poor appetite, weight gain or weight loss Gastrointestinal Gastrointestinal: Denies belching, bloating, change in bowel habits, change in stool character, chewing difficulty, coffee ground emesis, constipation, cramping, diarrhea, dyspepsia, dysphagia, early satiety, excessive flatus, fecalincontinence, heartburn, hematemesis, hematochezia, hemorrhoids, loose stools, melena, nausea, odynophagia, rectal bleeding, tenesmus, vomiting or weight changes Physical Exam Const alert, oriented x3, no apparent distress and healthy appearing General Appearance: cooperative GI normal to inspection, nondistended, normoactive bowel sounds, soft to palpation,non-tender and non-distended Percussion: normal to percussion Rectal Exam: deferred Assessment & Plan Assessment/Plan (1) Globus sensation: (2) Chest pain: (3) Lymphadenopathy of left cervical region: (4) Difficulty swallowing: QUALIFIERS: Dysphagia type: unspecified Qualified Code(s): R13.10- Dysphagia, unspecified PLAN: judgment good Assessment and Plan Assessment and Plan (1) Difficulty swallowing: Status: Acute Qualifiers: Dysphagia type: unspecified Qualified Code(s): R13.10 - Dysphagia, unspecified (2) Throat clearing: Status: Acute (3) Globus sensation: Status: Acute Orders: Orders Swallowing Function w/Video Today R09.89 - Other specified symptoms and signs involving the circulatory and respiratory systems, R09.A2 - Foreign body sensation, throat, R13.10 - Dysphagia, unspecified Medications: New omeprazole Take 30minutes before eating breakfast and dinner. 20 mg PO BID 60 caps 2RF famotidine 20 mg PO QHS 30 tabs 0RF Plan TARIK DUNHAM, is a 74 F who presents to the office today for establishment with I regarding concerns for difficulty swallowing. She states that she's been having swallowing trouble for over 20yrs. She had "every swallowing test known to man 6 years ago and they couldn't find anything specific." She states that she took herself off of pantoprazole as she "didn't notice a difference while onit." She reports that she has a globus sensation at the top of her throat but the food "gets stuck" at the lower esophagus. Discussed care plan with her. * change pantoprazole to omeprazole 20mg PO twice daily 30minutes before breakfast and dinner * add famotidine 20mg PO QHS * swallowing function w/video * esophageal manometry * schedule EGD * consider Botox v. amitriptyline v. diltiazem * office FU 1 wk after endoscopy 12/09/24 1106 <Electronically signed by Gomez Reynoso DO> Cosigner Signature (if applicable): CC: Dr. Garo Steele MD; Gomez Reynoso DO~ Signed [facility] Work Phone: 1(113) 917-524806-27-2025 Consult note [facility] Medical Records Department [address] [place] [id number] Anesthesia Postop Eval I 12/09/24 1215 MR#: [id number] Acct: [id number] Name: TARIK DUNHAM Rep #:[id number] : 1950 74 From: Fátima Colin CRNA PCP: Dr. Garo Steele MD Status:Curtis GUEVARA Y Race: C Location: [place] [address] Anesthesia: Postop Eval I Current Vital Signs Temperature: 98.1 F Pulse Rate: 79 Blood Pressure: 100/78 Respiratory Rate: 20 Pulse Ox: 98 Assessment Airway patent: Yes Spontaneous unlabored respirations: Yes nausea: No Vomiting: No Anesthesia Complication: No Fluid Hydration Crystalloid volume administer (ml): 500 Total IV fluid infused: 500 Progress Note Anesthesia document: Postop Eval 1 completed: Yes 12/09/24 1215 a COMMUNITY RELATIONS ASSISTANT> Date _ Fátima Colin COMMUNITY RELATIONS ASSISTANT Cosigner Signature: Date CC: ~ Signed [facility]06-27-2025 Evaluation note* Diagnosis Onset Date Resolution Status Admit Date Chest pain acute December 09 10:26am Globus sensation acute November 10:26am Lymphadenopathy of left cervical region acute December 09, 2024 10:26am Difficulty swallowing chronic Nov 10:26am 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 January 03, 2025 1:07pm Difficulty swallowing chronic Dec 1:07pm Throat clearing chronic December 1:07pm Globus sensation acute January 132024 8:04am 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 January 23 8:04am GERD (gastroesophageal reflu x disease) chronic January 23 8:04am Throat clearing chronic January 232024 8:04am Mucous cyst of digit of left hand acute January 31 1:49pm Mucous cyst of digit of left hand acute March 14, 2025 5:59am [facility] Work Phone: 1(336) 235-868806-27-2025 Evaluation note* Diagnosis Onset Date Resolution Status Admit Date Chest pain acute December 09 10:26am Globus sensation acute November 10:26am Lymphadenopathy of left cervical region acute December 09, 2024 10:26am Difficulty swallowing chronic Nov 10:26am 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 January 03, 2025 1:07pm Difficulty swallowing chronic Dec 1:07pm Throat clearing chronic December 1:07pm Globus sensation acute January 132024 8:04am 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 Garo Steele MD [facility] Patient Name: Tarik Dunham Procedure Date: 12/09/2024 11:41 AM Date of : 1950 Age: 74 Procedure: Upper GI endoscopy Indications: Dysphagia, Heartburn Providers: Gomez Reynoso DO Referring MD: Garo Steele Medicines: Monitored Anesthesia Care Patient Profile: This is a 74 year old female. Refer to note in patient chart for documentation of history and physical. Patient has symptoms of dysphagia with solids, acute heartburn and chronic heartburn. Complications: No immediate complications. Procedure: Pre-Anesthesia Assessment: - Prior to the procedure, a History and Physical was performed, and patient medications and allergies were reviewed. The patient is competent. The risks and benefits of the procedure and the sedation options and risks were discussed with the patient. All questions were answered and informed consent was obtained. Patient identification and proposed procedure were verified by the physician in the pre-procedure area. Mental Status Examination: alert and oriented. Airway Examination: normal oropharyngeal airway and neck mobility. Respiratory Examination: clear to auscultation. CV Examination: normal. Prophylactic Antibiotics: The patient does not require prophylactic antibiotics. Prior Anticoagulants: The patient has taken no anticoagulant or antiplatelet agents except for NSAID medication. ASA Grade Assessment: II - A patient with mild systemic disease. After reviewing the risks and benefits, the patient was deemed in satisfactory condition to undergo the procedure. The anesthesia plan was to use monitored anesthesia care (MAC). Immediately prior to administration of medications, the patient was re-assessed for adequacy to receive sedatives. The heart rate, respiratory rate, oxygen saturations, blood pressure, adequacy of pulmonary ventilation, and response to care were monitored throughout the procedure. The physical status of the patient was re-assessed after the procedure. After obtaining informed consent, the endoscope was passed under direct vision. Throughout the procedure, the patient's blood pressure, pulse, and oxygen saturations were monitored continuously. The gastroscope was introduced through the mouth, and advanced to the second part of duodenum. The upper GI endoscopy was accomplished without difficulty. The patient tolerated the procedure well. Scope In: 11:58:50 AM Scope Out: 12:05:47 PM Total Procedure Duration Time 0 hours 6 minutes 57 seconds Findings: LA Grade B (one or more mucosal breaks greater than 5 mm, not extending between the tops of two mucosal folds) esophagitis with no bleeding was found 36 to 40 cm from the incisors. Biopsies were taken with a cold forceps for histology. Verification of patient identification for the specimen was done. Estimated blood loss was minimal. Abnormal motility was noted in the esophagus. The cricopharyngeus was abnormal. There are extra peristaltic waves in the esophageal body. The distal esophagus/lower esophageal sphincter is spastic, but gives up passage to the endoscope. Tertiary peristaltic waves are noted. A moderate Schatzki ring was found at the gastroesophageal junction. A guidewire was placed and the scope was withdrawn. Dilation was performed with a Savary dilator with no resistance at 57 Fr. The dilation site was examined and showed moderate improvement in luminal narrowing. Estimated blood loss was minimal. A medium-sized hiatal hernia was present. No other significant abnormalities were identified in a careful examination of the stomach. No gross lesions were noted in the second portion of the duodenum. Impression: - LA Grade B reflux esophagitis with no bleeding. Biopsied. - Abnormal esophageal motility. - Moderate Schatzki ring. Dilated. - Medium-sized hiatal hernia. - No gross lesions in the second portion of the duodenum. Recommendation: - Discharge patient to home. - Resume previous diet. - Continue present medications. - Await pathology results. Procedure Code(s): --- Professional --- 53653, Esophagogastroduodenoscopy, flexible, transoral; with insertion of guide wire followed by passage of dilator(s) through esophagus over guide wire 05306, 59,51, Esophagogastroduodenoscopy, flexible, transoral; with biopsy, single or multiple CPT copyright 2021 [employer]. All rights reserved. The codes documented in this report are preliminary and upon vp software engineering review may be revised to meet current compliance requirements. Gomez Reynoso DO 12/09/2024 12:11:06 PM This report has been signed electronically. Number of Addenda: 0 Note Initiated On: 12/09/2024 11:41 AM 12/09/24 1211 Date _ Gomez Reynoso DO Cosigner Signature: Date (if indicated) CC: Dr. Garo Steele MD; Gomez Reynoso DO ~ Date Dictated: 12/09/24 1141 Date Transcribed: Licensing Director: RF Signed [facility]06-27-2025 Procedure note [facility] Medical Records Department [address] [place] [address] Operative Report - CC Letter MR#: [id number] Acct: [id number] Name: TARIK DUNHAM Rep #:[id number] : 1950 74 From: Gomez Reynoso DO PCP: Dr. Garo Steele MD Status:R [facility] 12/09/2024 Garo Steele [address] [place] [address] Re : Upper GI endoscopy procedure for Tarik Dunham Dear Dr. Steele This procedure was performed on Monday, December 09, 2024. My impressions and recommendations are as follows: Impressions : - LA Grade B reflux esophagitis with no bleeding. Biopsied. - Abnormal esophageal motility. - Moderate Schatzki ring. Dilated. - Medium-sized hiatal hernia. - No gross lesions in the second portion of the duodenum. Recommendations : - Discharge patient to home. - Resume previous diet. - Continue present medications. - Await pathology results. My findings are described in the full procedure note, which is enclosed. If I can be of further assistance, please feel free to contact me at . Sincerely, Gomez Reynoso DO 12/09/2024 12:11:06 PM This report has been signed electronically. 12/09/24 1211 Date _ Gomez Reynoso DO Cosigner Signature: Date (if indicated) CC: Dr. Garo Steele MD; Gomez Reynoso DO ~ Date Dictated: 12/09/24 1141 Date Transcribed: Licensing Director: RF Signed [facility]06-27-2025 Consult note [facility] Medical Records Department [address] [facility] [place] [address] Pre-Anesthesia Evaluation 12/09/24 1132 MR#: [id number] Acct: [id number] Name: TARIK DUNHAM Rep #:[id number] : 1950 74 From: Aaron Malone MD PCP: Dr. Garo Steele MD Status:R EG SDC Y Race: C Location: [place] [address] ASA Classification* ASA Classification ASA Classification: 2 Assessment & Plan Anesthesia* Anesthesia Assessment Anesthesia Assessment: Discussed sedation and/or anesthesia options, risks, benefits, and alternatives with patient/parents/legal guardian/POA. Questions invited. The patient/parents/legal guardian/POA seems to understand and agrees to proceedwith anesthesia plan. Reviewed the physical assessment, medical history, allergy history and patient home medications list prior to surgery/procedure/anesthetic and documented any changes. Performed airway and anesthesia risk assessments. Anesthesia Type Anesthesia Type: MAC History Source History Obtained from:: Patient and Chart Anesthesia Focused Assessment* Temperature: 98.6 F Pulse Rate: 63 Blood Pressure: 142/79 Respiratory Rate: 16 Pulse Ox: 98 Oxygen Delivery Method: Room Air Airway Assessment Mouth opens: >3 cm Mallampati Score: III Teeth Condition: Intact Neck Range of motion (ROM): Full ROM Labs Anesthesia Preop lab: CBC WBC 5.2 K/mm3 (4.4-11.0) 01/29/22 11:01 01/29/22 RBC 4.07 M/mm3 (4.2-5.4) L 01/29/22 11:01 01/29/22 Hgb 12.3 g/dL (12.0-15.0) 01/29/22 11:01 01/29/22 Hct 37.4 % (37-47) 01/29/22 11:01 01/29/22 Plt Count 288 K/mm3 (150-450) 01/29/22 11:01 01/29/22 CHEMISTRY Potassium 4.5 mmol/L (3.5-5.1) 01/29/22 11:01 01/29/22 Sodium 142 mmol/L (136-145) 01/29/22 11:01 01/29/22 BUN 15 mg/dL (7-18) 01/29/22 11:01 01/29/22 Creatinine 0.84 mg/dL (0.55-1.02) 01/29/22 11:01 01/29/22 Glucose 99 mg/dL (74-106) 01/29/22 11:01 01/29/22 TSH 3.40 uIU/mL (0.358-3.74) 01/29/22 11:01 COAG Pre-Assessment Diagnosis/Proposed Procedure Planned Operative Procedure(s): EGD Anesthesia History 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 When Was Last Pacemaker Check QUESTION #4 FULL TEXT: You/Your Family Experience fever (hyperthermia) with Anesthesia Last Oral Intake Last Oral intake: Last Oral Intake NPO since 06:30 12/09/24 11:02 Meds taken in AM with sips of No 12/09/24 11:02 water? Meds patient instructed to take am of surgery Any additional information?: Yes NPO since: 07:00 (Patient had black coffee at 7AM.) Meds taken in AM with sips of water?: No PONV PONV - electronic controls repairer supervisor: PONV - electronic controls repairer supervisor Female Yes 12/08/24 09:04 HX of Motion Sickness No 12/08/24 09:04 HX of N/V After Surgery No 12/08/24 09:04 Non-Smoker Yes 12/08/24 09:04 Duration of Surgery greater No 12/08/24 09:04 than 60 minutes Number of Risk Factors 2 12/08/24 09:04 PONV Score Moderate Risk 12/08/24 09:04 Height & Weight Height & Weight: Anesthesia: Height & Weight Height 5 ft 5 in 12/09/24 11:02 Weight: 67 kg 12/09/24 11:02 Body Mass Index (BMI) 24.5 12/09/24 11:02 Respiratory Assessment Respiratory Assessment - electronic controls repairer supervisor: Respiratory Tract Infection Hx - electronic controls repairer supervisor Hx Respiratory Tract Infection No 12/08/24 09:04 STOP Sleep Apnea STOP Sleep Apnea - electronic controls repairer supervisor: STOP Sleep Apnea - electronic controls repairer supervisor Hx Hypertension No 12/08/24 09:04 Hx Sleep Apnea Yes 12/08/24 09:04 CPAP Yes 12/08/24 09:04 BIPAP No 12/08/24 09:04 Do you snore loudly (louder than talking or can be heard Do you often feel tired/ fatigued/ sleepy during daytime? Has anyone observed you stop breathing during sleep? STOP Results Positive 12/08/24 09:04 QUESTION #5 FULL TEXT : Do you snore loudly (louder than talking or can be heard through closeddoors)? 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 - electronic controls repairer supervisor: Tobacco Use History - electronic controls repairer supervisor Tobacco Use Smoking Status Never smoker 12/08/24 09:04 Hx Tobacco Use No 12/08/24 09:04 Years Smoking Packs Smoked per Day Smoking Cessation Date was within the last 15 years Hx Smoking Cessation Date Hx Smoking Cessation Counseling Hematologic Medial History Hematologic Hx - electronic controls repairer supervisor: Hematologic Medical Hx - teaseler Hx of Blood Transfusion No 12/08/24 09:04 Hx of Transfusion in last 3 No 12/08/24 09:04 Months Date of Last Transfusion (if within last 3 months) Ever experience any problems No 12/08/24 09:04 with transfusion(s)? Specify any problems Hx of Preganancy in last 3 N/A 12/08/24 09:04 Months Nurse Filling Out Transfusion NBUCHER 12/08/24 09:04 & Questions: Date: 12/08/24 12/08/24 09:04 Time: 09:06 12/08/24 09:04 Patient unable to answer at this time (ie. 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 Hx Now No 12/08/24 09:04 Gestational Age (in weeks): EDC: Hx Hx Para Hx Section SAB No 12/08/24 09:04 Active Medications Active Medications: Current Medications Generic Name Dose Route Start Last Admin Trade Name Freq PRN Reason Stop Dose Admin Lactated Ringer's 1,000 mls @ 15 mls/hr 12/09/24 10:45 12/09/24 11:06 IV 15 mls/hr .Q48H ISAAC Administration PFSH Medical History Tinnitus Wears glasses Cancer High cholesterol History of hiatal hernia CPAP (continuous positive airway pressure) dependence Non-smoker Leg cramps History of echocardiogram History of stress test Cardiology follow-up encounter Thyroid nodule Hyperlipidemia Hypothyroidism GERD (gastroesophageal reflux disease) Osteopenia Osteoarthritis Neuropathy Carpal tunnel syndrome Cataracts, bilateral Breast cancer Arthritis Seasonal allergies Home Medications ?Medication ?Instructions ?Recorded ?Last Taken ?Type calcium 500 mg (as 1 tab PO DAILY 09/22/22 Unkn own History carbonate)-vitamin D3 3.125 mcg (125 unit) tablet gabapentin 300 mg capsule 300 mg PO QHS 11/21/22 Unkno wn History famotidine 20 mg tablet 20 mg PO QHS #30 tabs Unknown Rx omeprazole 20 mg capsule,delayed 20 mg PO BID #60 caps 11/14/24 Unknown Rx release rosuvastatin 5 mg tablet 5 mg PO QDAY #30 tabs Unknown Rx calcium-magnesium 750 mg-465 mg 1 tab PO DAILY 5 Unknown History tablet magnesium carb,citrate,oxide 100 mg PO DAILY 12/08/24 Unknown History (Magnesium Complex) Allergy/AdvReac Type Severity Reaction Status Date / Time Iodinated Contrast Media Allergy Itching Verified 12/09/24 11:01 (Iodinated Contrast Media - IV Dye) Family History Mother Breast cancer Father Myocardial infarction, Onset Age: 42 Heart disease Hypertension High cholesterol Grandmother CVA (cerebral vascular accident) Sister Breast cancer Aunt Breast cancer Surgical History History of right knee joint replacement History of tonsillectomy History of surgery on right wrist History of bilateral carpal tunnel release History of foot surgery History of shoulder surgery H/O bilateral mastectomy History of hysterectomy Social History Smoking Status: Never smoker alcohol intake: current alcohol intake frequency: a few times a week substance use type: does not use caffeine: Yes Type: coffee Number of servings: 6 what type of physical activity do you participate in: none Review of Systems (Anesthesia) ROS Narrative System reviewed and no additional complaints, except as documented. 12/09/24 1137 sathya COLEMAN> Date _ Aaron Malone MD Cosigner Signature: Date CC: ~ Signed [facility]06-27-2025 History and physical note [facility] Medical Records Department [address] [place] [address] History & Physical Exam 12/09/24 1103 MR#: [id number] Acct: [id number] Name: TARIK DUNHAM Rep #:[id number] : 1950 74 From: Gomez Friend DO PCP: Dr. Garo Steele MD Status:R [facility] Location: [place] [address] HPI - General General Date of Admission: 12/09/24 Date of Service: 12/09/24 Chief Complaint: dysphagia HPI Narrative TARIK DUNHAM, is a 74 F who presents regarding concerns for difficulty swallowing. She states that she's been having swallowing trouble for over 20yrs.She had "every swallowing test known to man 6 years ago and they couldn't find anything specific." She states that she took herself off of pantoprazole as she "didn't notice a difference while on it." She reports that she has a globus sensation at the top of her throat but the food "gets stuck" at the lower esophagus. She reports the most recent episode was with a bite of hamburger. Shedoes remember exactly how long it was stuck, but "it felt like forever." She wasunable to get liquids down past the food bolus. She reports that it did eventually pass on its own. She reports a frequent cough, throat clearing, increased sinus drainage, heartburn, and abdominal bloating. She denies food allergies and sensitivities, denies having asthma. She denies difficulty chewing, nausea, emesis, reflux, constipation, diarrhea, hematochezia, and melena. ROS Const Constitutional: No chills, fatigue, fever(s) or weight change Eyes Eyes: No change in vision ENT ENT: Positive for difficulty swallowing; No abnormal hearing Resp Respiratory: Positive for cough Cardio Cardiology: No chest pain at rest, chest pain with exertion or leg pain with exertion Gastro GI: Positive for bloating, difficulty swallowing and excessive flatus; No abdominal pain, belching, change in bowel habits, change in stool character, coffee ground emesis, constipation, cramping, diarrhea, heartburn, feeling full early, incontinent of stools, Vomiting blood/hematemesis, Blood in stool, loose stools, Black,tarry stools, nausea/dyspepsia, pain with swallowing, vomiting or other Musc Musculoskeletal: Positive for joint pain, back pain, numbness, stiffness, tingling, Arthritis and sciatica; No leg pain with exertion Skin Skin: No yellowing of the eye or itchy eyes Neuro Neurology: Positive for numbness and tingling; No abnormal hearing Psych Psychiatric: No anxiety and No depression Endo Endocrine: No cold intolerance, fatigue, heat intolerance or weight change Aller/Imm Allergy/Immunologic: No food intolerance or itchy eyes Cal/Lymp Hematologic/Lymphatic: No easy bleeding or easy bruising Exam Const General: cooperative, healthy appearing, comfortable, no acute distress and wellgroomed Nutritional Appearance: average body habitus Orientation: alert and oriented x3 HENMT Head: normal to inspection Ears: hearing grossly normal bilaterally Eyes General: appearance normal, both eyes and all related structures Sclera: sclerae normal Neck Neck: normal visual inspection and full ROM Chest Chest palpation & inspection: normal inspection of the chest Resp Effort & Inspection: normal respiratory effort, able to speak in complete sentences and symmetric chest movement GI Inspection: normal to inspection Skin General: no rashes or lesions noted Neuro General: patient alert, patient oriented x3 and moves all extremities Cognition: normal cognition Speech: speech normal Gait: normal gait Extrem General: full ROM Psych Appearance: well kempt Mental Status: mental status grossly normal Mood: congruent mood Judgment: judgment good Assessment and Plan Assessment and Plan (1) Difficulty swallowing: Status: Acute Qualifiers: Dysphagia type: unspecified Qualified Code(s): R13.10 - Dysphagia, unspecified (2) Throat clearing: Status: Acute (3) Globus sensation: Status: Acute Orders: Orders Swallowing Function w/Video Today R09.89 - Other specified symptoms and signs involving the circulatory and respiratory systems, R09.A2 - Foreign body sensation, throat, R13.10 - Dysphagia, unspecified Medications: New omeprazole Take 30minutes before eating breakfast and dinner. 20 mg PO BID 60 caps 2RF famotidine 20 mg PO QHS 30 tabs 0RF Plan TARIK DUNHAM, is a 74 F who presents to the office today for establishment with [facility] regarding concerns for difficulty swallowing. She states that she's been having swallowing trouble for over 20yrs. She had "every swallowing test known to man 6 years ago and they couldn't find anything specific." She states that she took herself off of pantoprazole as she "didn't notice a difference while onit." She reports that she has a globus sensation at the top of her throat but the food "gets stuck" at the lower esophagus. Discussed care plan with her. * change pantoprazole to omeprazole 20mg PO twice daily 30minutes before breakfast and dinner * add famotidine 20mg PO QHS * swallowing function w/video * esophageal manometry * schedule EGD * consider Botox v. amitriptyline v. diltiazem * office FU 1 wk after endoscopy [facility] Medical History Tinnitus Wears glasses Cancer High cholesterol History of hiatal hernia CPAP (continuous positive airway pressure) dependence Non-smoker Leg cramps History of echocardiogram History of stress test Cardiology follow-up encounter Thyroid nodule Hyperlipidemia Hypothyroidism GERD (gastroesophageal reflux disease) Osteopenia Osteoarthritis Neuropathy Carpal tunnel syndrome Cataracts, bilateral Breast cancer Arthritis Seasonal allergies Home Medications ?Medication ?Instructions ?Recorded ?Last Taken ?Type calcium 500 mg (as 1 tab PO DAILY 09/22/22 Unkn own History carbonate)-vitamin D3 3.125 mcg (125 unit) tablet gabapentin 300 mg capsule 300 mg PO QHS 11/21/22 Unkno wn History famotidine 20 mg tablet 20 mg PO QHS #30 tabs Unknown Rx omeprazole 20 mg capsule,delayed 20 mg PO BID #60 caps 11/14/24 Unknown Rx release rosuvastatin 5 mg tablet 5 mg PO QDAY #30 tabs Unknown Rx calcium-magnesium 750 mg-465 mg 1 tab PO DAILY 5 Unknown History tablet magnesium carb,citrate,oxide 100 mg PO DAILY 12/08/24 Unknown History (Magnesium Complex) Allergy/AdvReac Type Severity Reaction Status Date / Time Iodinated Contrast Media Allergy Itching Verified 12/09/24 11:01 (Iodinated Contrast Media - IV Dye) Family History Mother Breast cancer Father Myocardial infarction, Onset Age: 42 Heart disease Hypertension High cholesterol Grandmother CVA (cerebral vascular accident) Sister Breast cancer Aunt Breast cancer Surgical History History of right knee joint replacement History of tonsillectomy History of surgery on right wrist History of bilateral carpal tunnel release History of foot surgery History of shoulder surgery H/O bilateral mastectomy History of hysterectomy Social History Smoking Status: Never smoker alcohol intake: current alcohol intake frequency: a few times a week substance use type: does not use caffeine: Yes Type: coffee Number of servings: 6 what type of physical activity do you participate in: none ROS Constitutional Constitutional: Denies fatigue, fever(s), poor appetite, weight gain or weight loss Gastrointestinal Gastrointestinal: Denies belching, bloating, change in bowel habits, change in stool character, chewing difficulty, coffee ground emesis, constipation, cramping, diarrhea, dyspepsia, dysphagia, earlysatiety, excessive flatus, fecalincontinence, heartburn, hematemesis, hematochezia, hemorrhoids, loose stools, melena, nausea, odynophagia, rectal bleeding, tenesmus, vomiting or weight changes Physical Exam Const alert, oriented x3, no apparent distress and healthy appearing General Appearance: cooperative GI normal to inspection, nondistended, normoactive bowel sounds, soft to palpation,non-tender and non-distended Percussion: normal to percussion Rectal Exam: deferred Assessment & Plan Assessment/Plan (1) Globus sensation: (2) Chest pain: (3) Lymphadenopathy of left cervical region: (4) Difficulty swallowing: QUALIFIERS: Dysphagia type: unspecified Qualified Code(s): R13.10- Dysphagia, unspecified PLAN: judgment good Assessment and Plan Assessment and Plan (1) Difficulty swallowing: Status: Acute Qualifiers: Dysphagia type: unspecified Qualified Code(s): R13.10 - Dysphagia, unspecified (2) Throat clearing: Status: Acute (3) Globus sensation: Status: Acute Orders: Orders Swallowing Function w/Video Today R09.89 - Other specified symptoms and signs involving the circulatory and respiratory systems, R09.A2 - Foreign body sensation, throat, R13.10 - Dysphagia, unspecified Medications: New omeprazole Take 30minutes before eating breakfast and dinner. 20 mg PO BID 60 caps 2RF famotidine 20 mg PO QHS 30 tabs 0RF Plan TARIK DUNHAM, is a 74 F who presents to the office today for establishment with [facility] regarding concerns for difficulty swallowing. She states that she's been having swallowing trouble for over 20yrs. She had "every swallowing test known to man 6 years ago and they couldn't find anything specific." She states that she took herself off of pantoprazole as she "didn't notice a difference while onit." She reports that she has a globus sensation at the top of her throat but the food "gets stuck" at the lower esophagus. Discussed care plan with her. * change pantoprazole to omeprazole 20mg PO twice daily 30minutes before breakfast and dinner * add famotidine 20mg PO QHS * swallowing function w/video * esophageal manometry * schedule EGD * consider Botox v. amitriptyline v. diltiazem * office FU 1 wk after endoscopy 12/09/24 1106 Cosigner Signature (if applicable): CC: Dr. Garo Steele MD; Gomez Reynoso DO~ Signed [facility]06-27-2025 [facility] Medical Records Department [address] [place] [address] History Physical Exam 12/09/24 1103 MR#: [id number] Acct: [id number] Name: TARIK DUNHAM Rep #: [id number] : 1950 74 From: Gomez Reynoso DO PCP: Dr. Garo Steele MD Status:[facility] Location: [place] [address] HPI - General General Date of Admission: 12/09/24 Date of Service: 12/09/24 Chief Complaint: dysphagia HPI Narrative TARIK DUNHAM, is a 74 F who presents regarding concerns for difficulty swallowing. She states that she's been having swallowing trouble for over 20yrs. She had "every swallowing test known to man 6 years ago and they couldn't find anything specific." She states that she took herself off of pantoprazole as she "didn't notice a difference while on it." She reports that she has a globus sensation at the top of her throat but the food "gets stuck" at the lower esophagus. She reports the most recent episode was with a bite of hamburger. She does remember exactly how long it was stuck, but "it felt like forever." She was unable to get liquids down past the food bolus. She reports that it did eventually pass on its own. She reports a frequent cough, throat clearing, increased sinus drainage, heartburn, and abdominal bloating. She denies food allergies and sensitivities, denies having asthma. She denies difficulty chewing, nausea, emesis, reflux, constipation, diarrhea, hematochezia, and melena. ROS Const Constitutional: No chills, fatigue, fever(s) or weight change Eyes Eyes: No change in vision ENT ENT: Positive for difficulty swallowing; No abnormal hearing Resp Respiratory: Positive for cough Cardio Cardiology: No chest pain at rest, chest pain with exertion or leg pain with exertion Gastro GI: Positive for bloating, difficulty swallowing and excessive flatus; No abdominal pain, belching, change in bowel habits, change in stool character, coffee ground emesis, constipation, cramping, diarrhea, heartburn, feeling full early, incontinent of stools, Vomiting blood/hematemesis, Blood in stool, loose stools, Black,tarry stools, nausea/dyspepsia, pain with swallowing, vomiting or other Musc Musculoskeletal: Positive for joint pain, back pain, numbness, stiffness, tingling, Arthritis and sciatica; No leg pain with exertion Skin Skin: No yellowing of the eye or itchy eyes Neuro Neurology: Positive for numbness and tingling; No abnormal hearing Psych Psychiatric: No anxiety and No depression Endo Endocrine: No cold intolerance, fatigue, heat intolerance or weight change Aller/Imm Allergy/Immunologic: No food intolerance or itchy eyes Cal/Lymp Hematologic/Lymphatic: No easy bleeding or easy bruising Exam Const General: cooperative, healthy appearing, comfortable, no acute distress and well groomed Nutritional Appearance: average body habitus Orientation: alert and oriented x3 [facility] Head: normal to inspection Ears: hearing grossly normal bilaterally Eyes General: appearance normal, both eyes and all related structures Sclera: sclerae normal Neck Neck: normal visual inspection and full ROM Chest Chest palpation inspection: normal inspection of the chest Resp Effort Inspection: normal respiratory effort, able to speak in complete sentences and symmetric chest movement GI Inspection: normal to inspection Skin General: no rashes or lesions noted Neuro General: patient alert, patient oriented x3 and moves all extremities Cognition: normal cognition Speech: speech normal Gait: normal gait Extrem General: full ROM Psych Appearance: well kempt Mental Status: mental status grossly normal Mood: congruent mood Judgment: judgment good Assessment and Plan Assessment and Plan (1) Difficulty swallowing: Status: Acute Qualifiers: Dysphagia type: unspecified Qualified Code(s): R13.10 - Dysphagia, unspecified (2) Throat clearing: Status: Acute (3) Globus sensation: Status: Acute Orders: Orders Swallowing Function w/Video Today R09.89 - Other specified symptoms and signs involving the circulatory and respiratory systems, R09.A2 - Foreign body sensation, throat, R13.10 - Dysphagia, unspecified Medications: New omeprazole Take 30minutes before eating breakfast and dinner. 20 mg PO BID 60 caps 2RF famotidine 20 mg PO QHS 30 tabs 0RF Plan TARIK DUNHAM, is a 74 F who presents to the office today for establishment with [facility] regarding concerns for difficulty swallowing. She states that she's been having swallowing trouble for over 20yrs. She had "every swallowing test known to man 6 years ago and they couldn't find anything specific." She states that she took herself off of pantoprazole as she "didn't notice a difference while on it." She reports that she has a globus sensation at the top of her throat but the food "gets stuck" at the lowe (more content not included)...[facility]06-02-2025 Evaluation note* Diagnosis Onset Date Resolution Status Admit Date Hyperlipidemia chronic November 14, 2024 8:03am Difficulty swallowing acute Nov 8:35am Globus sensation acute November 8:35am Throat clearing acute November 14, 2024 8:35am Chest pain acute December 09 10:26am Difficulty swallowing acute Nov 10:26am Globus sensation acute November 10:26am Lymphadenopathy of left cerv ical region acute December 09, 2024 10:26am [facility] Work Phone: 1(421) 836-272106-02-2025 Evaluation note* Diagnosis Onset Date Resolution Status Admit Date Hyperlipidemia chronic November 14, 2024 8:03am Globus sensation acute November 8:35am Difficulty swallowing chronic Nov 8:35am Throat clearing chronic November 14, 2024 8:35am Chest pain acute December 09 10:26am Globus sensation acute November 10:26am Lymphadenopathy of left cerv ical region acute December 09, 2024 10:26am Difficulty swallowing chronic Nov 10:26am 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 January 03, 2025 1:07pm Difficulty swallowing chronic Dec 1:07pm Throat clearing chronic December 1:07pm [facility] Work Phone: 1(636) 174-999606-02-2025 Evaluation note* Diagnosis Onset Date Resolution Status Admit Date Hyperlipidemia chronic November 14, 2024 8:03am Globus sensation acute November 8:35am Difficulty swallowing chronic Nov 8:35am Throat clearing chronic November 14, 2024 8:35am Chest pain acute December 09 10:26am Globus sensation acute November 10:26am Lymphadenopathy of left cerv ical region acute December 09, 2024 10:26am Difficulty swallowing chronic Nov 10:26am 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 Pt. s/p R breast biopsy on 10/24/15. Dx DCIS. She underwent b/l nipple sparing mastectomy with implant reconstruction. Right sentinel LN biopsy (Neg.) on 01/09/16. No complications. She was not followed by an oncologist after surgery. Pt. has been followed by plastics for implants. Pt. was living in [place]. +family history of breast cancer: Mother in early 40's Maternal aunt I'm have never seen an oncologist. I moved back to [place]. I had my implants changed maybe three years ago." Appetite:"I'm getting over being sick." Energy level:"I think good." Denies fevers. Recent "flu" diarrhea and vomiting Resp:denies cough or sob [...] (98.1 ?F) (Oral) Ht 167.6 cm (5' 6") Wt 66.4 kg (146 lb 6.2 oz) [...] pt. - Will have records scanned into [facility]. - Continue follow up with plastics and PCP for routine care. - Follow up in one year. - Pt. aware to call office with any questions/concerns. The patient indicates understanding of these issues and agrees with the plan. 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 Pt. s/p R breast biopsy on 10/24/15. Dx DCIS. She underwent b/l nipple sparing mastectomy with implant reconstruction. Right sentinel LN biopsy (Neg.) on 01/09/16. No complications. She was not followed by an oncologist after surgery. Pt. has been followed by plastics for implants. Pt. was living in [place]. +family history of breast cancer: Mother in early 40's Maternal aunt I'm have never seen an oncologist. I moved back to [place]. I had my implants changed maybe three years ago." Appetite:"I'm getting over being sick." Energy level:"I think good." Denies fevers. Recent "flu" diarrhea and vomiting Resp:denies cough or sob [...] EXAM: BP 113/64 Pulse 63 Temp 36.7 C (98.1 F) (Oral) Ht 167.6 cm (5' 6") Wt 66.4 kg (146 lb 6.2 oz) SpO2 95% BMI 23.63 kg/m APPEARANCE Well appearing, alert, in no acute [...] out from dx. After discussion pt. feels morecomfortable following up here yearly since she did not receive care from oncology after dx. per pt. - Will have records scanned into [employer]. - Continue follow up with plastics and PCP for routine care. - Follow up in one year. - Pt. aware to call office with any questions/concerns. The patient indicates understanding of these issues and agrees with the plan. Nabil Kim APRN.CYBER ENGINEER documented in [facility] encounter[facility] Telephone encounter Note * Telephone Encounter - Nevaeh Parker - 10/21/2024 9:20 AM EDT Scheduled with patient [facility] Work Phone: 1(889) 830-893305-09-2025 Miscellaneous Notes* Telephone Encounter - Nevaeh Parker - 10/21/2024 9:20 AM EDT Scheduled with patient * Telephone Encounter - Anel Akbar - 10/21/2024 8:59 AM EDT Lvm for patient to return the call Anel Akbar * Telephone Encounter - Izabel Ambriz LPN - 10/21/2024 8:33 AM EDT Offer New pt with [facility]. Not on an AI. Mamm, surg, path all in scanned documents. Izabel Ambriz LPN * Telephone Encounter - Garo Steele MD - 10/21/2024 3:53 AM EDT Schedule with oncology. * Telephone Encounter - Azucena Barahona RN - 10/20/2024 10:09 AM EDT Pt called and is notified of providers results and instructions. Pt voices understanding. I let Pt know PT should be calling her once they receive the orders. Please place the orders for referral to oncology for breast cancer follow up and call to schedule once they are in. Faxed Pt orders to [facility] at fax # [phone]. Azucena Barahona, MAVIS * Telephone Encounter - Veronica Melton LPN - 10/20/2024 9:31 AM EDT Phoned patient and left message to return call and ask to speak to a nurse for results. * Telephone Encounter - Garo Steele MD - 10/19/2024 8:27 PM EDT 1) advanced DJD of left shoulder. She should see her disaster recovery specialist in [facility], Dr. Metz. 2) Referral to PT at [facility] ordered for left hip osteoarthritis. 3) Offer referral to oncology for breast cancer follow up. ASSESSMENT/PLAN: 1. Unilateral primary osteoarthritis, left hip - ICD9: 715.15, ICD10: M16.12 - CONSULT TO PHYSICAL THERAPY Garo Steele MD * Telephone Encounter - Juani German RN - 10/18/2024 12:44 PM EDT Patient calls to request results of recent x-ray. Notified still in process. Patient also asking if she could have an order for PT at [facility] for left hip pain. Patient also asking about further blood work d/t having bilateral breast cancer 5 years ago. She reports that when in [place] she followed with oncology and wandering if she should still be at this time and didn't know if there was any further blood work she should have done to check. Reviewed notes for cholesterol medication. Patient is currently going to work on dietary changes and will let us know if changes her ing. Juani German RN documented in this encounterSelect [facility]25 Telephone encounter Note * Telephone Encounter - Anel Akbar - 10/21/2024 8:59 AM EDT Lvm for patient to return the call Anel Akbar [facility]05-09-2025 Telephone encounter Note* Telephone Encounter - Izabel Ambriz LPN - 10/21/2024 8:33 AM EDT Offer New pt with Nabil. Not on an AI. Mamm, surg, path all in scanned documents. Izabel Ambriz LPN [facility]05-09-2025 Telephone encounter Note* Telephone Encounter - Garo Steele MD - 10/21/2024 3:53 AM EDT Schedule with oncology. [facility]05-08-2025 Telephone encounter Note* Telephone Encounter - Azucena Barahona RN - 10/20/2024 10:09 AM EDT Pt called and is notified of providers results and instructions. Pt voices understanding. I let Pt know PT should be calling her once they receive the orders. Please place the orders for referral to oncology for breast cancer follow up and call to schedule once they are in. Faxed Pt orders to [facility] at fax # [phone]. Azucena Barahona, RN [facility]05-08-2025 Telephone encounter Note* Telephone Encounter - Veronica Melton LPN - 10/20/2024 9:31 AM EDT Phoned patient and left message to return call and ask to speak to a nurse for results. [facility]05-07-2025 Telephone encounter Note* Telephone Encounter - Garo Steele MD - 10/19/2024 8:27 PM EDT 1) advanced DJD of left shoulder. She should see her disaster recovery specialist in [facility], Dr. Metz. 2) Referral to PT at [facility] ordered for left hip osteoarthritis. 3) Offer referral to oncology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 SUMMARY MR#: [id number] Acct: [id number] Name: TARIK DUNHAM Rep #: [id number] : 1950 73 From: Anel [place] Referring DrHarriet: Status: REG RCR Insurance: [employer] MEDICARE PPO SELF PAY INSURANCE Discharge Summary D/C summary: It has been my pleasure to treat TARIK DUNHAM referred by ALTAF METZ, with the diagnosis of R TKR 03/24/23 for a total of 22 visit(s). Discharge Date: 07/01/23 Please see the following information for a summary of their discharge status. Subjective Subjective: Pt is leaving for [facility] for a week. She has a gym routine out here that she will start soon. Pt feels good. She knows that she is weak. Shestill has pain on the sides of her knee. She noticed that she was really stiff last week when she did not do her exercises in the gym. She reports that it hurts worse at night. Pain R knee pain: Pain Intensity (Out of 10): 5 Overall Improvement % Improvement: 80 Objective Objective/Function: gait: Walks with B knee flexion still but much improved heelto toe gait pattern and equal stance time on B LE's Pt feels comfortable with indep with gym routine Goals Goal 1:: I gym routine Goal Progress: Goal Met Goal 2:: Be able to go up and down steps recip with 1 light hand rails for safety Goal Progress: Goal Met Goal 3:: Increase R knee AROM 0-120 degrees flexion Goal Progress: Goal Met Goal 4:: Walk with a normal gait pattern with no device Goal Progress: Goal Met Goal 5:: Be able to to sit to stand with no UE support X 10 Goal Progress: Goal Met Goal 6:: Increase LE strength (LE MMT: R hip flex 9.7 and L 11.7 R knee ext 13.4 and L 18.9 R knee flex 5.9 and L 11.9) Goal Progress: Goal Met Plan Plan: DC PT to I gym routine D/C Information Discharge Comments: DC PT to HEP d/c sentence: If there are questions or concerns regarding this patient's physical therapy, please feel free to call me at [phone]. Thank you for the referral of thispatient. Sincerely, WATSON Meneses Balance/Gait/Functional tests Balance/Special Test Scores Lower Extremity Functional Score: 66 WOMAC Total Score: 48 WOMAC Percentage: 50.0000 Improvement % Improvement: 80 <Electronically signed by Anel Blanco MPT> 07/01/23 4300 CC: Dr. Garo Steele MD; ALTAF METZ ~ Signed [facility] Work Phone: 1(605) 509-785101-08-2024 Telephone encounter Note* Telephone Encounter - Erick Wilder LPN - 06/22/2023 10:05 AM EST Please sign [facility] tomorrow. [facility] [id number] Miscellaneous Notes* Telephone Encounter - Erick Wilder LPN - 06/22/2023 10:05 AM EST Please sign for dental appointment tomorrow. * Telephone Encounter - Esha Ko - 06/22/2023 9:28 AM EST Pt called stating that she has a dental appt scheduled for tomorrow and needs a ref[facility] of her premed antibiotic [id number] [place] [place] - [phone] [[id number]]. Please advise. documented in this encounterSTriHealth Good Samaritan HospitalOsrdvl65-45-2051 Telephone encounter Note* Telephone Encounter - Esha Ko - 06/22/2023 9:28 AM EST Pt called stating that she has a dental appt scheduled for tomorrow and needs a refill of her premed antibiotic [id number] - [place], [place] - [address] AT [phone] [[id number]]. Please advise. [facility] HospitalGpnosc87-66-6618 Telephone encounter Note* Telephone Encounter - Nguyễn Gregg PA-C - 06/19/2023 2:22 PM EST Thank you [facility] HospitalEsaero02-78-1511 Miscellaneous Notes* Telephone Encounter - Nguyễn Gregg PA-C - 06/19/2023 2:22 PM EST Thank you * Telephone Encounter - Erick Wilder LPN - 06/19/2023 1:15 PM EST Mychart message sent * Telephone Encounter - Danielle Perez 06/19/2023 11:32 AM EST Name of caller: Tarik Contact phone number: [phone] Relationship to Patient: patient Provider: Isaías Practice: Ortho Chief Complaint/Reason for Call: Pt states that she has a couple of trips coming up and would like to know if she is able to fly at the end of the month? Pt is requesting a return call, please advise. Best time of day caller can be reached: Any Patient advised that office/PCP has 24-48 business hours to return their call: No documented in this encounterSTriHealth Good Samaritan HospitalZelrxu89-19-1541 Telephone encounter Note* Telephone Encounter - Erick Wilder LPN - 06/19/2023 1:15 PM EST [employer] message sent [facility] HospitalQbgjtw38-63-0007 Telephone encounter Note* Telephone Encounter - Danielle Fuentes - 06/19/2023 11:32 AM EST Name of caller: Tarik Contact phone number: [phone] Relationship to Patient: patient Provider: Isaías Practice: Ortho Chief Complaint/Reason for Call: Pt states that she has a couple of trips coming up and would like to know if she is able to fly at the end of the month? Pt is requesting a return call, please advise. Best time of day caller can be reached: Any Patient advised that office/PCP has 24-48 business hours to return their call: No [facility] HospitalImsjyy13-63-7178 History of Present illness Narrative* JOANNA Dwyer - 04/29/2023 8:30 AM EST [facility]IC[facility] [address] [place] [address] Dept: [phone] Dept 04/29/2023 Chief Complaint Patient presents with Post-op R TKA Subjective: Tarik is approximately 5 weeks out from a right total knee arthroplasty. Pain is mild. Patient hasnoted issues with: nothing out of the ordinary, some swelling Assistive device for ambulation: none. Pre-operative symptoms are improved. The patient is able to walk 2 blocks and is able to use stairs. Patient denies calf pain or unusual swelling. ED visit since surgery: No Hospital re-admit since surgery: No Complication since surgery: No Review of Systems Objective: BP 100/60 Ht 5' 6" (1.676 m) Wt 140 lb (63.5 kg) BMI 22.60 kg/m Tarik overall looks well and comfortable. Gait: normal. Knee incision(s): healing well, no drainage, no erythema. Swelling is moderate. Knee ROM shows flexion 105, extension 0. The knee is stable tovarus/valgus stress <6 degrees. No evidence of DVT seen on physical exam. Negative Jeffrey's sign. No cords or calf tenderness.. Ortho Exam XRAYS: 04/29/23 images obtained by outside radiology department independently [...] implant in good position with no abnormality. Assessment 1. S/P total knee arthroplasty, right 2. Primary osteoarthritis of right knee Plan Medrol dosepack, Tylenol and Tramadol refills - PDMP reviewed see below Tarik will continue with WBAT and therapy. I would like to check the patient back in 3 month(s) with new knee X-rays. We reviewed signs and symptoms of common post-operative issues including infection. We reviewed the need for prophylaxis with dental or other procedures. She will call and return sooner for questions, issues, or concerns. Tarik was given a prescription for Ultram (TRAMADOL). I explained to Tarik that narcotic pain medications have addictive potential and should only be taken for severe pain. The narcotic is intendedto treat the pain associated with: Orthopedic Surgery It is my clinical judgment that Tarik has pain related to a recent major orthopedic surgery that will not be adequately controlled with anti- inflammatories or hzri-tph-bvqtaot medications and requires narcotic pain medication that may exceed 30 MED average and/or a 7 day supply. I explained that narcotic medication should not be taken to help Tarik sleep as they only only intended to treat pain. In addition Tarik needs to avoid taking other narcotics, anxiolytics or consuming alcohol or using street drugs while she is taking the narcotic because serious side effects including can occur. I discussed the side effects that can occur when taking a narcotic alone including but not limited to: nausea, vomiting, constipation and drowsiness. If Tarik has any reactions to the medication(s) or any percieved problems with the medication(s) she was instructed to stop the medication(s) and call me. The patient's OARRS report was obtained and reviewed by myself today. The patient is not receiving prescriptions from multiple physicians/pharmacies, and the active cumulative morphine equivalent level is under 30 and we will continue to provide this prescription for narcotic pain medication under a carefully monitored basis. The patient has agreed to continue to follow our narcotic policy. Electronically signed by Nguyễn Gregg PA-C to Altaf Metz M.D. Hip and Knee Reconstruction [facility] 04/29/2023 at 9:07 AM. documented in this [facility]11-15-2023 Miscellaneous Notes* Addendum Note - Nguyễn Gregg PA-C - 04/29/2023 8:30 AM ESTAddended by: COLE GREGG on: 04/29/2023 09:54 AM Modules accepted: Orders * Addendum Note - Nguyễn Gregg PA-C - 04/29/2023 8:30 AM ESTAddended by: COLE GREGG on: 04/29/2023 09:57 AM Modules accepted: Orders * Addendum Note - Nguyễn Gregg PA-C - 04/29/2023 8:30 AM ESTAddended by: COLE GREGG on: 04/29/2023 10:06 AM Modules accepted: Orders documented in this [facility]11-15-2023 Note* Addendum Note - Nguyễn Gregg PA-C - 04/29/2023 8:30 AM ESTAddended by: COLE GREGG on: 04/29/2023 09:54 AM Modules accepted: Orders [place] [id number] Note* Addendum Note - Nguyễn Gregg PA-C - 04/29/2023 8:30 AM ESTAddended by: COLE GREGG on: 04/29/2023 09:57 AM Modules accepted: Orders [place] [id number] Note* Addendum Note - Nguyễn Gregg PA-C - 04/29/2023 8:30 AM ESTAddended by: COLE GREGG on: 04/29/2023 10:06 AM Modules accepted: Orders [id number] Note* Addendum Note - Nguyễn Gregg PA-C - 04/29/2023 8:30 AM ESTAddended by: COLE GREGG on: 04/29/2023 09:54 AM Modules accepted: Orders [address]Hcfkfy78-02-8004 Note* Addendum Note - Nguyễn Gregg PA-C - 04/29/2023 8:30 AM ESTAddended by: COLE GREGG on: 04/29/2023 09:57 AM Modules accepted: Orders [id number] Note* Addendum Note - Nguyễn Gregg PA-C - 04/29/2023 8:30 AM ESTAddended by: COLE GREGG on: 04/29/2023 10:06 AM Modules accepted: Orders [address]Lmyngr87-03-9195 Note* Addendum Note - Nguyễn Gregg PA-C - 04/29/2023 8:30 AM ESTAddended by: COLE GREGG on: 04/29/2023 09:54 AM Modules accepted: Orders [id number] Note* Addendum Note - Nguyễn Gregg PA-C - 04/29/2023 8:30 AM ESTAddended by: COLE GREGG on: 04/29/2023 09:57 AM Modules accepted: Orders [id number] Note* Addendum Note - Nguyễn Gregg PA-C - 04/29/2023 8:30 AM ESTAddended by: COLE GREGG on: 04/29/2023 10:06 AM Modules accepted: Orders [id number] Note* Addendum Note - Nguyễn Gregg PA-C - 04/29/2023 8:30 AM ESTAddended by: COLE GREGG on: 04/29/2023 09:54 AM Modules accepted: Orders [id number] Note* Addendum Note - Nguyễn Gregg PA-C - 04/29/2023 8:30 AM ESTAddended by: COLE GREGG on: 04/29/2023 09:57 AM Modules accepted: Orders [address]Gdqadi42-55-8484 Note* Addendum Note - Nguyễn Gregg PA-C - 04/29/2023 8:30 AM ESTAddended by: COLE GREGG on: 04/29/2023 10:06 AM Modules accepted: Orders [address]Cvkpuf43-19-8527 Note* Addendum Note - Nguyễn Gregg PA-C - 04/29/2023 8:30 AM ESTAddended by: COLE GREGG on: 04/29/2023 09:54 AM Modules accepted: Orders [address]Agwfcy45-89-6345 Note* Addendum Note - Nguyễn Gregg PA-C - 04/29/2023 8:30 AM ESTAddended by: COLE GREGG on: 04/29/2023 09:57 AM Modules accepted: Orders [address]Oijhgp64-39-8868 Note* Addendum Note - Nguyễn Gregg PA-C - 04/29/2023 8:30 AM ESTAddended by: COLE GREGG on: 04/29/2023 10:06 AM Modules accepted: Orders [id number] Note* Addendum Note - Nguyễn Gregg PA-C - 04/29/2023 8:30 AM ESTAddended by: COLE GREGG on: 04/29/2023 09:54 AM Modules accepted: Orders [address]Nuvksh88-74-1565 Note* Addendum Note - Nguyễn Gregg PA-C - 04/29/2023 8:30 AM ESTAddended by: COLE GREGG on: 04/29/2023 09:57 AM Modules accepted: Orders [id number] Note* Addendum Note - Nguyễn Gregg PA-C - 04/29/2023 8:30 AM ESTAddended by: COLE GREGG on: 04/29/2023 10:06 AM Modules accepted: Orders [id number] Note* Addendum Note - Nguyễn Gregg PA-C - 04/29/2023 8:30 AM ESTAddended by: COLE GREGG on: 04/29/2023 09:54 AM Modules accepted: Orders [place] [id number] Note* Addendum Note - Nguyễn Gregg PA-C - 04/29/2023 8:30 AM ESTAddended by: COEL GREGG on: 04/29/2023 09:57 AM Modules accepted: Orders [address]Yzemkq90-17-5051 Note* Addendum Note - Nguyễn Gregg PA-C - 04/29/2023 8:30 AM ESTAddended by: COLE GREGG on: 04/29/2023 10:06 AM Modules accepted: Orders [facility] HospitalAysjjc55-57-3236 Telephone encounter Note* Telephone Encounter - Nguyễn Gregg PA-C - 04/13/2023 12:53 PM EDT Order in [facility] HospitalAukpoy53-92-4216 Miscellaneous Notes* Telephone Encounter - Nguyễn Gregg PA-C - 04/13/2023 12:53 PM EDT Order in * Telephone Encounter - Altaf Metz MD - 04/13/2023 12:06 PM EDT Thanks Nguyễn Roman we get lab order in for CMP, make sure liver function is fine. * Telephone Encounter - Ana Meade RN - 04/13/2023 11:37 AM EDT Spoke with patient. States she is having pain when doing her exercises. States it gets so bad that she is not able to do them a second time in the day and sometimes not even the next day. Explained to her that pain is still expected at this point in her recovery. Instructed her to use pain more as a guide with her exercises, not to push it to the point that she is not able to do her exercises a couple of times per day. It is more important to continue the exercises two to three times per day rather than pushing so hard she can't. She states she is only taking tylenol for her pain. States she is using the Tylenol prescribed to her after surgery and takes her arthritis medication. Upon confirmation, her arthritis medication us also tylenol. She also states she has been having headaches so she has been taking medication for that. Upon confirmation, that too was tylenol. Explained to patient she is taking too much tylenol. Spoke with Dr Metz, let him know of the tylenol she has been taking. He wants to get labs. Informed patient of this, she verbalized understanding and agreed to go this afternoon. Instructed her to hold all tylenol. Encouraged the use of the Tramadol for pain * Telephone Encounter - Juana Vaca - 04/13/2023 11:01 AM EDT Name of Caller: Vamshi w/ [facility] Relationship to Patient: [facility] [phone] Symptoms/Concerns: Vamshi stated that pt is having ongoing pain for over a week now. No sign of infection, but concerned about pain level. Pt sx RIGHT TOTAL KNEE ARTHROPLASTY DOS 03/24 w/ Dr. Metz. Please advise. Provider: Nguyễn Gregg Practice Name: Ortho documented in this [facility]10-30-2023 Telephone encounter Note* Telephone Encounter - Altaf Metz MD - 04/13/2023 12:06 PM EDT Thanks Nguyễn Roman we get lab order in for CMP, make sure liver function is fine. [facility] Work Phone: [phone] Telephone encounter Note* Telephone Encounter - Ana Meade RN - 04/13/2023 11:37 AM EDT Spoke with patient. States she is having pain when doing her exercises. States it gets so bad that she is not able to do them a second time in the day and sometimes not even the next day. Explained to her that pain is still expected at this point in her recovery. Instructed her to use pain more as a guide with her exercises, not to push it to the point that she is not able to do her exercises a couple of times per day. It is more important to continue the exercises two to three times per day rather than pushing so hard she can't. She states she is only taking tylenol for her pain. States she is using the Tylenol prescribed to her after surgery and takes her arthritis medication. Upon confirmation, her arthritis medication us also tylenol. She also states she has been having headaches so she has been taking medication for that. Upon confirmation, that too was tylenol. Explained to patient she is taking too much tylenol. Spoke with Dr Metz, let him know of the tylenol she has been taking. He wants to get labs. Informed patient of this, she verbalized understanding and agreed to go this afternoon. Instructed her to hold all tylenol. Encouraged the use of the Tramadol for pain [employer] [id number] Telephone encounter Note* Telephone Encounter - Juana Vaca - 04/13/2023 11:01 AM EDT Name of Caller: Vamshi becerra/ [facility] Relationship to Patient: [facility] [phone] Symptoms/Concerns: Vamshi stated that pt is having ongoing pain for over a week now. No sign of infection, but concerned about pain level. Pt sx RIGHT TOTAL KNEE ARTHROPLASTY DOS 03/24 w/ Dr. Metz. Please advise. Provider: Nguyễn Gregg Practice Name: Ortho [id number] History of Present illness Narrative* JOANNA Dwyer - 04/06/2023 2:00 PM EDT DOS: 03/24/23 Surgery: Right Total Knee Arthroplasty Surgeon: Isaías Assistive devices used: a cane Wound/incision concerns: Denies Erythema, Drainage, and No concerns at this time Fevers/Chills/Night sweats: Denies Any new symptoms following surgery: No Any improvement in preoperative symptoms: Yes DVT Prophylaxis: Lovenox 40mg daily x 15 days followed by Aspirin 81mg BID x 15 days Pain Control: Tylenol Any postoperative refills requested: Yes - Tylenol, Tramadol If narcotics requested, was an OARRS reviewed: Yes, Appropriate Post op restrictions reviewed: Weight Bearing As Tolerated Home PT: Yes Outpatient Scheduled: Will place order today 4 Week Follow-up Scheduled: Yes I had a discussion with the patient today regarding postoperative care, see above. All questions and concerns were addressed. We will plan to see the patient for their standard 4 week postoperative visit in the office. Should they have any questions or concerns prior to that appointment, they were instructed to contact our office. Nguyễn Gregg PA-C Tarik was given a prescription for Ultram (TRAMADOL). I explained to Tarik that narcotic pain medications have addictive potential and should only be taken for severe pain. The narcotic is intendedto treat the pain associated with: Orthopedic Surgery It is my clinical judgment that Tarik has pain related to a recent major orthopedic surgery that will not be adequately controlled with anti- inflammatories or [id number] medications and requires narcotic pain medication that may exceed 30 MED average and/or a 7 day supply. I explained that narcotic medication should not be taken to help Tarik sleep as they only only intended to treat pain. In addition Tarik needs to avoid taking other narcotics, anxiolytics or consuming alcohol or using street drugs while she is taking the narcotic because serious side effects including can occur. I discussed the side effects that can occur when taking a narcotic alone including but not limited to: nausea, vomiting, constipation and drowsiness. If Tarik has any reactions to the medication(s) or any percieved problems with the medication(s) she was instructed to stop the medication(s) and call me. The patient's OARRS report was obtained and reviewed by myself today. The patient is not receiving prescriptions from multiple physicians/pharmacies, and the active cumulative morphine equivalent level is under 30 and we will continue to provide this prescription for narcotic pain medication under a carefully monitored basis. The patient has agreed to continue to follow our narcotic policy. TOTAL TIME SPENT ON PATIENT ENCOUNTER TODAY: 10 MINUTES: Chart review and preparation, telephone discussion, and documentation. Patient was identified and seen today via Telehealth by agreement and consent. I used the followingTelevidIQ technology: Audio capability only. Total length of call 10 minutes. The patient was offered and advised video for a more comprehensive evaluation, but the patient declined or was unable touse video. Patient location: Patient Location: Home. This patient encounter is appropriate and reasonable under the circumstances: recent surgery . The patient has been advised of the potential risks and limitations of this mode of treatment (including but not limited to the absence of in-personexamination) and has agreed to be treated in a remote fashion in spite of them. Any and all of the patient's/patient's family's questions on this issue have been answered and I have made no promises or guarantees to the patient. The patient has also been advised to contact this office for worseningconditions or problems, and seek emergency medical treatment and/or call 911 if the patient deems either necessary. The patient stated that they are currently in the [facility]. If the patient is a minor, permission has been obtained by the parent or guardian for the patient to receive medical care at this visit. documented in this [facility]10-11-2023 History of Present illness Narrative* SIDNEY Ronquillo - 03/25/2023 11:30 AM EDT Images from the original note were not included. Occupational Therapy OCCUPATIONAL THERAPY [facility] Treatment Note Name/MRN: Tarik Dunham ([id number]) Date of : 1950 Age: 73 y.o. Room/Bed: B1168/[facility]168 A Visit #: 1 out of 2 visits Discharge Recommendation: Home with Home OT and Home with Assist PRN Equipment Needed: front wheeled walker Prior Level of Function ADL Assistance: Independent Ambulation Assistance: Independent Transfer Assistance: Independent Assessment Pt progressing well with all goals and has met her toileting goal. Is slightly unsteady when first standing and needed extra time to steady herself. Pt was able to dress herself with light min assist(carmine wrap making it difficult to don pants). Daughter present and she was helping her mother for ease in dressing. Pt did demonstrate the ability to don her socks with mod I. Pt educated on walker safety, toilet transfer and LB dressing techniques. Pt will have assist at home as needed and is planning on going home today. OT recs jaelyn with HH OT and assist PRN at discharge. Subjective States "It's been so long that I've javid able to get around and stand normally". Pain: 0-10 pain scale: 3/10 Location: back of knee BP 104/63 Medical Precautions: No active isolations Proper PPE donned/doffed in accordance with facility standards. Fall Risk: Petersen Fall Risk Score: 55 (High Risk) Precautions/Restrictions: Right LE Weight Bearing: Weight Bearing As Tolerated Family/Caregiver Present: child(willard) Objective ADLs Grooming: Modified Independent, standing at the sink UE Dressing: Modified Independent LE Dressing: Modified Independent with socks, Min assist with pants (daughter helped). Toileting: mod I Pt already had her UB self care (washed and dressed) completed prior to OT. Bed Mobility Supine to sit: Modified Independent Sit to supine: left sitting EOB Transfers/Mobility Sit to stand: Modified Independent, Pt unsteady when first standing and needed CGA with first stand. Pt progressed to mod I. Stand to sit: Modified Independent, cues for hand placement Toilet: Modified Independent Tub: Pt reports having a grab bar and seat built in to her walk in shower. Sitting balance: Modified Independent Standing balance: Modified Independent, Supervision Functional mobility: Modified Independent, Supervision Pt initially needing cues with standing balance at the FWW and for functional mobility at the FWW. Pt progressing to mod I as treatment progressed. Pt educated on walker safety. Device(s) used: front wheeled walker Cognition - WFL Plan Continue acute OT per plan of care. Safety/Education Safety Safety Devices in place: All fall risk precautions in place, call light within reach, left in bed, and patient left sitting EOB Restraints: No Education Education Given To: patient Education Provided: OT Role, Plan of Care, ADL Adaptive Strategies, Transfer Training, Family Education, and Benefits of Increasing Activity Education Method: Demonstration and Verbal Barriers to Learning: None Education Outcome: Verbalized Understanding and Demonstrated Understanding AM-PAC AM-PAC Inpatient Daily Activity Raw Score: 22 ADL Inpatient CMS G-Code Modifier: CJ Goals Patient Stated Goal: to return home. Encounter Problems Encounter Problems (Active) Dressings Lower Extremities Patient will dress lower body MOD I (Adequate for Discharge) Start: 03/24/23 Expected End: 03/26/23 Encounter Problems (Resolved) Mobility Patient will demonstrate functional mobility with MOD I and FWW (Goal Met) Start: 03/24/23 Expected End: 03/26/23 Resolved: 03/25/23 Toileting Patient will complete toileting tasks at standard toilet with modified independence. (Goal Met) Start: 03/24/23 Expected End: 03/26/23 Resolved: 03/25/23 Transfers Patient will complete functional transfer with rolling walker with modified independence in order to prepare for ambulation. (Goal Met) Start: 03/24/23 Expected End: 03/26/23 Resolved: 03/25/23 Therapy Time Individual Co-treatment Time In 0948 Time Out 1018 Minutes 30 Timed Code Treatment Minutes: 28 Minutes (adl and ther act) SIDNEY Ronquillo * Michelle Schwarz MD - 03/25/2023 9:28 AM EDT Images from the original note were not included. Hospitalist Progress Note 03/25/[id number]: Please secure chat me on patient care issues. [phone]: Please secure chat [facility] Hospitalist for any issues. Subjective: Admit Date: 03/24/2023 PCP: Garo Steele Room#: B1-168/B1-168 A CHIEF COMPLAINT: Right TKA Interval History: Overall doing well, eating well, ambulating, pain controlled, passing gas. ROS: No fevers, chills, numbness and weakness, headache, chest pain Adult diet Regular @IKAI1HBJVAV@ 24HR INTAKE/OUTPUT: Intake/Output Summary (Last 24 hours) at 03/25/2023 0928 Last data filed at 03/24/2023 1042 Gross per 24 hour Intake 424.24 ml Output 100 ml Net 324.24 ml Past Medical History: Past Medical History: Diagnosis Date Arthritis Cancer (CMS/HCC) (HCC) right breast Fractures pelvis, right shoulder, right wrist Hyperlipidemia Sleep apnea uses cpap LABS: CBC: Recent Labs 03/25/23 0346 HGB 12.0 HCT 35.3 BMP: Recent Labs 03/25/23 0346 NA 133* K 4.8 CL 103 CO2 21* BUN 20* CREATININE 0.60 GLUCOSE 138* CALCIUM 9.4 ANIONGAP 9 LIVER PROFILE:No results for input(s): "AST", "ALT", "BILITOT", "ALKPHOS", "PROT" in the last 72 hours. No lab exists for component: "LABALBU" PT/INR: No results for input(s): "PROTIME", "INR" in the last 72 hours. CARDIAC ENZYMES: No results for input(s): "TROPONINI" in the last 72 hours. Procalcitonin: No results found for: "PROCAL" COVID-19 PCR: No results for input(s): "COVID19" in the last 72 hours. Objective: Vitals: BP (!) 103/43 Pulse 64 Temp 37.1 C (98.7 F) (Temporal) Resp 16 Ht 5' 6" (1.676 m) Wt 140 lb (63.5 kg) SpO2 95% BMI 22.60 kg/m Pulse Ox: SpO2 Av.1 % Min: 94 % Max: 100 % Supplemental O2: O2 Flow Rate (L/min): 2 L/min Physical Exam Vitals and nursing note reviewed. HENT: Mouth/Throat: Pharynx: Oropharynx is clear. Eyes: Conjunctiva/sclera: Conjunctivae normal. Cardiovascular: Rate and Rhythm: Normal rate. Heart sounds: No murmur heard. Pulmonary: Effort: Pulmonary effort is normal. No respiratory distress. Breath sounds: No wheezing or rales. Abdominal: General: Bowel sounds are normal. Tenderness: There is no abdominal tenderness. Musculoskeletal: General: Tenderness and signs of injury present. Comments: Dressing to right lower extremity Skin: General: Skin is warm. Capillary Refill: Capillary refill takes less than 2 seconds. Neurological: General: No focal deficit present. Mental Status: She is alert and oriented to person, place, and time. Medications: lactated Ringer's, 50 mL/hr, Last Rate: Stopped (03/24/23 1042) ropivacaine, 500 mL, Last Rate: 500 mL (03/24/23 1150) sodium chloride, 125 mL/hr, Last Rate: Stopped (03/24/23 1445) acetaminophen, 650 mg, Oral, q6h enoxaparin, 40 mg, SubCUTAneous, Daily famotidine, 20 mg, Oral, BID gabapentin, 300 mg, Oral, TID sodium chloride 0.9%, 10 mL, IntraVENous, 2 times per day traMADol, 50 mg, Oral, q6h Assessment Right Knee OA s/p TKA BRUNO - brings own CPAP machine HLD - not on meds HX of breast ca s/p mastectomy GERD - not taking PPI at home Neuropathy - continue gabapentin Summary of Current Hospital Admission Admitted for Right TKA, post-operatively doing well. Stable for discharge on POD1 Medical Decision Making - OK for medical clearance on discharge - continue all home medications. -am labs, replace lytes prn -increase activity -DVT prophylaxis: [] Lovenox [] Heparin [] SCDs [x] Encourage ambulation [] Already on Anticoagulation Anticipated Discharge - Date - 03/25 - Location - Home - Pending the following - surgical discharge Total time spent (which include face to face and non face to face encounters) : 25 minutes Toxic drug monitoring/narrow therapeutic index drug monitoring : # Drug name : NA # Route administered : NA # Method of monitoring : NA Extended Emergency Contact Information Primary Emergency Contact: Uvaldo Dunham [address]: [address] [place], [place] [id number] [place] [address] Mobile Relation: Spouse Secondary Emergency Contact: Maria Dolores Heredia Address: [address] [place] [address] Mobile Relation: Daughter Michelle Schwarz MD Division of Hospitalist Medicine [facility] PAGER: Epic chat * Le Zhou PTA - 03/25/2023 8:29 AM EDT Images from the original note were not included. PHYSICAL THERAPY [facility] Treatment Note Name/MRN: Tarik Dunham ([id number]) Date of : 1950 Age: 73 y.o. Room/Bed: B1-168/B1-168 A Discharge Recommendation: Home with Home PT and Home with Assist PRN Equipment Needed: front wheeled walker Prior Level of Function ADL Assistance: Independent Ambulation Assistance: Independent Transfer Assistance: Independent Assessment Pt tolerated treatment well and demos improvements in all aspects of mobility. Pt completed bed mobility with HOWARD, transfers with HOWARD, ambulation with FWW with HOWARD, and stair/curb negotiation withSupervision. Pt reported minimal knee pain throughout session and demonstrated good participation. Continued skilled PT after d/c warranted to improve safety in the home environment and progress toward PLOF. Pt met all acute PT goals. Recommend C PT and Assist PRN. Subjective Patient pleasant and agreeable to therapy. Vitals: BP 103/43 Pain: RN managing pain. Minimal R posterior knee pain reported. Cold applied. Medical Precautions: No active isolations Proper PPE donned/doffed in accordance with facility standards. Fall Risk: Petersen Fall Risk Score: 60 (High Risk) Precautions/Restrictions: Right LE Weight Bearing: Weight Bearing As Tolerated Family/Caregiver Present: child(willard) (daughter) Objective Exercises Exercises Straight Leg Raise: 1 set / 10 reps R LE supine Quad Sets: 1 set / 10 reps B LE supine Heelslides: 1 set / 10 reps R LE supine, 1 set / 10 reps R LE seated Gluteal Sets: 1 set / 10 reps supine Knee Long Arc Quad: 1 set / 10 reps R LE seated Knee Short Arc Quad: 1 set / 10 reps R LE supine Knee Active Range of Motion: 0-90 degrees R knee seated Ankle Pumps: 1 set / 10 reps B LE supine Comments: Pt was provided with supine and seated HEP handout. Instruction provided in completing anti-embolic exercises x10 reps every hour and additional exercises 10 reps 1-2 times per day. Pt demos good teach back and quad firing. Edu regarding avoiding forceful flexion of surgical knee during exercises. Pt was also instructed in ambulating 1x per hour with FWW at home. Pt verbalizes understanding. Ambulation Ambulation 1 Assistive device(s) used: front wheeled walker Assist level: Modified Independent Distance (ft): 115' x1 Quality of gait: reciprocal stepping, uneven step length, slow davi Pt initially required cues for safe management of FWW during directional changes but demonstrated carryover during session. Pt was educated on safe use and appropriate proximity to FWW. Pt was educated on rationale for use of FWW at all times until progressed by PT. Pt verbalizes understanding. Bed Mobility Supine to sit: Modified Independent Sit to supine: Modified Independent Pt completed bed mobility tasks with HOWARD from flat bed (Bed height raised to mimic home set-up). Pt has a high bed at home and uses a step to get into bed. Pt completed step with FWW to sit on EOB, HOWARD. Pt's daughter present to observe. Pt stated that she may sleep in recliner initially upon returning home. Pt denies dizziness with positional changes. Pt was educated on avoiding use of pillow under knee to promote proper alignment and healing. Pt verbalizes understanding. Transfers/Mobility Sit to stand: Modified Independent Stand to sit: Modified Independent From EOB to FWW. Pt demonstrated good carryover for proper hand placement and positioning of surgical LE to avoid forceful flexion. Pt demos no LOB or instability during transfers. Device(s) used: front wheeled walker Stairs Stairs 1 Assistive device(s) used: cane Assist level: Supervision # of steps: x3 Rails: right Additional factors: non-reciprocal going up, non-reciprocal going down Stair negotiation ascending/descending x3 steps with unilateral HR and SPC with SBA to improve safety when entering/exiting home. SBA required to monitor stability and to provide cues for safe technique. Pt was instructed in proper sequencing and demonstrated carryover and teach back. Pt's daughterpresent to observe stair training. Curb Curb Height: 6" # of Curbs: x2 Assistive device(s) used: front wheeled walker Assist level: Supervision Additional factors: Pt was instructed in proper sequencing and placement of FWW on curb step. Pt demonstrated good follow-through. Supervision provided for safety. Plan Continue acute PT per plan of care. # of visits: 1 visit; 2x daily Safety/Education Safety Safety Devices in place: All fall risk precautions in place, call light within reach, left in bed, gait belt, patient at risk for falls, and nurse notified Restraints: No Education Education Given To: patient and daughter Education Provided: PT Role, PT Goals, Plan of Care, Home Exercise Program, Transfer Training, Family Education, Equipment, Discharge Recommendations, and Benefits of Increasing Activity Education Method: Demonstration, Verbal, Teach Back, and Printed Information Barriers to Learning: None Education Outcome: Verbalized Understanding and Demonstrated Understanding Outcome Measures AM-PAC How much HELP from another person do you currently need Turning from your back to your side while in a flat bed without using bedrails?: None Moving from lying on your back to sitting on the side of a flat bed without using bedrails?: None Moving to and from a bed to a chair (including a wheelchair)?: None Standing up from a chair using your arms (wheelchair or bedside chair)?: None Walking in a hospital room?: None Stair climbing assessed?: Yes Climbing 3-5 steps with a railing?+: A Little AM-PAC Inpatient Mobility Raw Score : 23 AM-PAC Inpatient Mobility Raw Score (No Stairs) : 20 Goals Patient Stated Goal: to go home Encounter Problems Encounter Problems (Active) Pain - Adult Encounter Problems (Resolved) Exercise Patient will complete lower extremity exercises for 1-2 sets / 5-10 reps in order to improve strength and activity tolerance for mobility. (Completed) Start: 03/24/23 Expected End: 03/25/23 Resolved: 03/25/23 Patient will improve surgical knee ROM from 0 degrees to 90 degrees in order to improve safety withfunctional mobility. (Completed) Start: 03/24/23 Expected End: 03/25/23 Resolved: 03/25/23 Mobility Patient will ambulate 100 feet with modified independence and rolling walker in order to improve safety and independence with mobility. (Completed) Start: 03/24/23 Expected End: 03/25/23 Resolved: 03/25/23 Patient will ascend and descend 2 stairs with least restrictive device and supervision in order to safely negotiate home. (Completed) Start: 03/24/23 Expected End: 03/25/23 Resolved: 03/25/23 Transfers Patient will perform bed mobility with modified independence in order to improve independence and prepare for out of bed mobility. (Completed) Start: 03/24/23 Expected End: 03/25/23 Resolved: 03/25/23 Patient will complete sit to stand transfer with modified independence to rolling walker in order to improve safety and prepare for out of bed mobility. (Completed) Start: 03/24/23 Expected End: 03/25/23 Resolved: 03/25/23 Therapy Time Individual Co-treatment Time In 0730 Time Out 0824 Minutes 54 Timed Code Treatment Minutes: 54 Minutes (x1 ther ex, x1 ther act, x2 gait) Le Zhou PTA * Casa Spain MD - 03/25/2023 6:23 AM EDT Images from the original note were not included. Adult Hip and Knee Reconstruction Service Patient Name: Tarik Dunham Date of : 1950 Date: 03/25/23 Assessment: s/p Right TKA on 03/24/2023 doing well Plan: Continue PT - WBAT Pain control DVT Prophylaxis - ASA/SCDs Abx x24hrs, complete D/c planning - home when clears PT Subjective: Doing well this AM, questions answered about surgery. Ambulating with assistance. Medications: acetaminophen, 650 mg, Oral, q6h enoxaparin, 40 mg, SubCUTAneous, Daily famotidine, 20 mg, Oral, BID gabapentin, 300 mg, Oral, TID sodium chloride 0.9%, 10 mL, IntraVENous, 2 times per day traMADol, 50 mg, Oral, q6h Physical Exam: Vitals: 03/25/23 0353 BP: 131/62 Pulse: 71 Resp: 17 Temp: 36.7 C (98 F) SpO2: 98% Intake and Output Summary (Last 24 hours) at Date Time Intake/Output Summary (Last 24 hours) at 03/25/2023 0624 Last data filed at 03/24/2023 1042 Gross per 24 hour Intake 424.24 ml Output 100 ml Net 324.24 ml General appearance - no acute distress Musculoskeletal - Dressing C/D/I Fires quad/TA/EHL/GSC SILT SP/DP/TN WWP distally Calves soft, nontender bilateral Labs: Lab Results Component Value Date HGB 12.0 03/25/2023 Rads: Radiological Procedure reviewed. Signed by: Casa Spain MD * Gerry Delatorre, PT - 03/24/2023 3:15 PM EDT Images from the original note were not included. PHYSICAL THERAPY [facility] Initial Evaluation Having reviewed the treatment plan and goals for this patient, I certify that the plan of care below is medically necessary and appropriate. Name/MRN: Tarik Dunham ([id number]) Evaluation Date: 03/24/2023 Date of : 1950 Admission Date: 03/24/2023 6:05 AM Age: 73 y.o. Room/Bed: B1-168/B1-168 A Discharge Recommendation: Home with Home PT and Home with Assist PRN Equipment Needed: front wheeled walker Assessment IMPRESSION: Pt s/p R TKA 03/[address] Metz. At baseline she is IND with no device. She demo bed mobility SBA, transfers to FWW min A-CGA and ambulation with FWW and CGA. She is at increased falls risk and has not yet met acute therapy goals, will rec [facility] PT to promote mobility and safety Diagnosis: s/p R TKA 03/[address] Metz Performance Deficits /Impairments: Decreased Functional Mobility, Decreased ROM, Decreased Strength, Decreased Safety Awareness, Decreased Endurance, and Decreased Balance Decision Making: Medium Complexity Subjective Per RN pt okay for therapy; pt pleasant and agree to PT BP: 131/74 Pain: RN managing pain. 0-10 pain scale: 4/10 Location: R knee Past Medical History: Past Medical History: Diagnosis Date Arthritis Cancer (CMS/HCC) (HCC) right breast Fractures pelvis, right shoulder, right wrist Hyperlipidemia Sleep apnea uses cpap Past Surgical History: Past Surgical History: Procedure Laterality Date BREAST BIOPSY BREAST RECONSTRUCTION Bilateral CARPAL TUNNEL RELEASE CATARACT EXTRACTION COLONOSCOPY DILATION AND CURETTAGE OF UTERUS FOOT SURGERY Right pin placed in big toe HYSTERECTOMY MASTECTOMY Bilateral TONSILLECTOMY TOTAL KNEE ARTHROPLASTY Right 03/24/2023 Admission Diagnosis: Patient Active Problem List Diagnosis Date Noted Primary osteoarthritis of right knee 03/23/2023 Delayed emergence from anesthesia 03/10/2023 BRUNO (obstructive sleep apnea) 03/10/2023 Medical Precautions: No active isolations Proper PPE donned/doffed in accordance with facility standards. Fall Risk: Petersen Fall Risk Score: 20 (Low Risk) Precautions/Restrictions: Right LE Weight Bearing: Weight Bearing As Tolerated Family/Caregiver Present: spouse Overall Cognitive Status: WFL Overall Orientation Status: Oriented x4 Vision: no visual deficits Hearing: normal Social/Functional History Patient admitted from home. Lives With: Spouse Type of Home: single family home Home Layout: Single Level Home Home Access: Stairs to Enter with Rails (# of stairs: 2) Bathroom Shower/Tub: Shower Chair with Back and Walk in Shower Toilet: riser Home Equipment: none Homemaking Responsibilities: Independent Receives Help From: Family Active Concrete Inspector: Yes Prior Level of Function ADL Assistance: Independent Ambulation Assistance: Independent Transfer Assistance: Independent Objective Lower Extremity Assessment AROM: Exceptions: R knee ~5-90 deg PROM: Not assessed this session Strength: LLE WFL RLE: ankle Df 5/5; PF 5/5; knee ext 4/5 Sensation: WFL Upper Extremity: NT Bed Mobility: Supine to sit: SBA, Pt denies dizziness. Therapist educate pt on WB status, to avoid posterior prop, forced flexion. She demo bed mobility SBA with increased time Sit to supine: SBA Balance Posture: good Sitting - Static: SBA Sitting - Dynamic: SBA Standing - Static: Contact Guard Standing - Dynamic: Contact Guard Transfers Sit to stand: Contact Guard, Min Assist, Pt complete initial transfer to FWW from bed with min A, from toilet CGA. Therapist cues pt for hand and foot placement, upright trunk. No LOB Stand to sit: Contact Guard Ambulation Ambulation 1 Assistive device(s) used: front wheeled walker Assist level: Contact Guard Distance (ft): 20 ft x2 Quality of gait: No LOB, step to pattern, slow davi, Therapist cues pt for walker management andproximity to FWW, cues to avoid twisting while turning and for safety throughout Outcome Measures AM-PAC How much HELP from another person do you currently need Turning from your back to your side while in a flat bed without using bedrails?: A Little Moving from lying on your back to sitting on the side of a flat bed without using bedrails?: A Little Moving to and from a bed to a chair (including a wheelchair)?: A Little Standing up from a chair using your arms (wheelchair or bedside chair)?: A Little Walking in a hospital room?: A Little Stair climbing assessed?: No AM-PAC Inpatient Mobility Raw Score (No Stairs) : 15 Plan Pt would benefit from skilled acute PT services to address Strengthening, ROM, Balance Training, Functional Mobility Training, Endurance Training, Gait Training, Stair Training, Pain Management, Safety Education and Training, Patient/Caregiver Training, Equipment Evaluation/Education, and Positioning. Frequency: 2 2x daily visits during current hospital admission or until additional recommendations are made Barriers: None Prognosis: good Safety/Education Safety Safety Devices in place: All fall risk precautions in place, call light within reach, left in bed, gait belt, patient at risk for falls, nurse notified, and no alarms engaged upon entry Restraints: No Education Education Given To: patient and spouse Education Provided: PT Role, PT Goals, Plan of Care, Precautions, Transfer Training, Energy Conservation, Family Education, Equipment, Fall Prevention Education, Discharge Recommendations, and Benefits of Increasing Activity Education Method: Demonstration, Verbal, and Teach Back Barriers to Learning: None Education Outcome: Verbalized Understanding, Demonstrated Understanding, and Continued Education Needed Goals Patient Stated Goal: go home Encounter Problems Encounter Problems (Active) Exercise Patient will complete lower extremity exercises for 1-2 sets / 5-10 reps in order to improve strength and activity tolerance for mobility. Start: 03/24/23 Expected End: 03/25/23 Patient will improve surgical knee ROM from 0 degrees to 90 degrees in order to improve safety withfunctional mobility. Start: 03/24/23 Expected End: 03/25/23 Mobility Patient will ambulate 100 feet with modified independence and rolling walker in order to improve safety and independence with mobility. Start: 03/24/23 Expected End: 03/25/23 Patient will ascend and descend 2 stairs with least restrictive device and supervision in order to safely negotiate home. Start: 03/24/23 Expected End: 03/25/23 Transfers Patient will perform bed mobility with modified independence in order to improve independence and prepare for out of bed mobility. Start: 03/24/23 Expected End: 03/25/23 Patient will complete sit to stand transfer with modified independence to rolling walker in order to improve safety and prepare for out of bed mobility. Start: 03/24/23 Expected End: 03/25/23 Therapy Time Individual Co-treatment Time In 1425 (co-eval with OT) Time Out 1446 Minutes 21 Timed Code Treatment Minutes: 8 Minutes (co-eval with OT) Gerry Delatorre, PT Patient's Physical Therapy Plan of Care supervision is transferred to a [facility] Services Physical Therapist. Goals and/or treatment plan was established in collaboration with patient/family/other representatives. * Zach Arthur OT - 03/24/2023 3:12 PM EDT Images from the original note were not included. Occupational Therapy OCCUPATIONAL THERAPY [facility] Initial Evaluation Having reviewed the treatment plan and goals for this patient, I certify that the plan of care below is medically necessary and appropriate. Name/MRN: Tarik Dunham ([id number]) Evaluation Date: 03/24/2023 Date of : 1950 Admission Date: 03/24/2023 6:05 AM Age: 73 y.o. Room/Bed: B1-168/B1-168 A Discharge Recommendation: Home with Home OT and Home with Assist PRN Equipment Needed: front wheeled walker Assessment IMPRESSION: Pt seen 03/24 s/p R TKA by Dr. Metz with new WBAT status and to avoid forceful flexionof the knee. She was previously IND for ADLs, IADLs, and functional transfers / mobility. She is currently MOD A for LB ADLs, SBA for seated UB ADLs, MIN A - CGA for transfers / mobility. She is limited by increased pain and fatigue at this time. She would benefit from skilled OT services to address the below. Recommend planned discharge for [facility] OT with assist PRN. Performance Deficits /Impairments: Decreased Functional Mobility, Decreased ADL status, Decreased Endurance, Decreased Balance, and Decreased High Level IADLs Prognosis: Good Decision Making: Medium Complexity Subjective Pleasant and cooperative. Ok to see per RN. Sx dressing clean, dry, intact. Vitals: BP: 131/74 Pain: 0-10 pain scale: 4/10 Location: R knee Past Medical History: Past Medical History: Diagnosis Date Arthritis Cancer (CMS/HCC) (HCC) right breast Fractures pelvis, right shoulder, right wrist Hyperlipidemia Sleep apnea uses cpap Past Surgical History: Past Surgical History: Procedure Laterality Date BREAST BIOPSY BREAST RECONSTRUCTION Bilateral CARPAL TUNNEL RELEASE CATARACT EXTRACTION COLONOSCOPY DILATION AND CURETTAGE OF UTERUS FOOT SURGERY Right pin placed in big toe HYSTERECTOMY MASTECTOMY Bilateral TONSILLECTOMY TOTAL KNEE ARTHROPLASTY Right 03/24/2023 Admission Diagnosis: Patient Active Problem List Diagnosis Date Noted Primary osteoarthritis of right knee 03/23/2023 Delayed emergence from anesthesia 03/10/2023 BRUNO (obstructive sleep apnea) 03/10/2023 Medical Precautions: No active isolations Proper PPE donned/doffed in accordance with facility standards. Fall Risk: Petersen Fall Risk Score: 20 (Low Risk) Precautions/Restrictions: Right LE Weight Bearing: Weight Bearing As Tolerated Other Position/Activity Restriction: to avoid forceful flexion of the knee. AMBIT pain pump in place Family/Caregiver Present: spouse Overall Cognitive Status: WFL Overall Orientation Status: Oriented x4 Social/Functional History Patient admitted from home. Lives With: Spouse Type of Home: single family home Home Layout: Single Level Home Home Access: Stairs to Enter with Rails (# of stairs: 2) Bathroom Shower/Tub: Shower Chair with Back and Walk in Shower Toilet: Standard and toilet raiser Home Equipment: none Homemaking Responsibilities: Independent Receives Help From: None Active Concrete Inspector: Yes Prior Level of Function ADL Assistance: Independent Ambulation Assistance: Independent Transfer Assistance: Independent Objective ADLs Toileting: Min Assist Pt demos diminished functional reach and endurance at this time for participation in extended ADL tasks. She is limited by increased pain this visit. She requires increased time to complete bathroom level toileting this date. No true LOB noted during OOB activity and no physical assist for pericare, however requires increased assist for clothing management. Based on observed functional ability, anticipate that she would require MOD A for LB ADLs and SBA for seated UB ADLs. Upper Extremity Assessment AROM: WFL PROM: WFL Strength: WFL Tremors: no Coordination: WFL Tone: Not assessed this session Sensation: WFL Vision: no visual deficits Hearing: normal Hand dominance: N/A Bed Mobility Supine to sit: SBA Sit to supine: SBA Scooting: SBA HOB elevated, increased time required to complete. Pt educated on WBAT status and to avoid forcefulflexion of the knee prior to participation in OOB activity. Denies dizziness with OOB activity. Good ability to maintain precautions throughout session. Pt was able to manage BLE and trunk to EOB without assist. Pt requires use of BUE to assist with guiding RLE into / OOB. Transfers/Functional Mobility Sit to stand: Min Assist Stand to sit: Contact Guard Toilet: Contact Guard Sitting balance: SBA Standing balance: Contact Guard Functional mobility: Contact Guard Functional Transfers: Increased time required to complete. Pt able to maintain precautions throughout session. Pt was educated on proper BLE management, hand placement and device positioning with good teach back noted at this time. Pt demos good hand placement for push up from /reach back for seated surfaces with good BLE management to maintain precautions and proper YAMIL. Pt utilizes grab bars simulating home set up. Good carryover of transfer training to completion of bathroom level toilet transfers. Heavy reliance on grab bars for stability during controlled descent / ascent. Functional Mobility: No true LOB noted at this time, good device management with good hand placement at FWW. No noted BLE buckling this date. Pt requires increased time to complete with increased noted offloading through BUE and device. Device(s) used: front wheeled walker AM-PAC AM-PAC Inpatient Daily Activity Raw Score: 17 ADL Inpatient CMS G-Code Modifier: CK Plan Pt would benefit from skilled acute OT services to address Strengthening, Balance Training, Functional Mobility Training, Endurance Training, Pain Management, Safety Education and Training, Patient/Caregiver Training, Equipment Evaluation/Education, Self-Care/ADL Training, and Home Management Training. Frequency: 2 visits during current hospital admission or until additional recommendations are made Barriers: Pain Prognosis: good Safety/Education Safety Safety Devices in place: All fall risk precautions in place, call light within reach, left in bed, gait belt, patient at risk for falls, nurse notified, and no alarms engaged upon entry Restraints: No Education Education Given To: patient and spouse Education Provided: OT Role, Plan of Care, Precautions, ADL Adaptive Strategies, Transfer Training,Equipment, Fall Prevention Education, and Discharge Recommendations Education Method: Demonstration, Verbal, and Teach Back Barriers to Learning: None Education Outcome: Verbalized Understanding and Demonstrated Understanding Goals Patient Stated Goal: to return home. Encounter Problems Encounter Problems (Active) Dressings Lower Extremities Patient will dress lower body MOD I Start: 03/24/23 Expected End: 03/26/23 Mobility Patient will demonstrate functional mobility with MOD I and FWW Start: 03/24/23 Expected End: 03/26/23 Toileting Patient will complete toileting tasks at standard toilet with modified independence. Start: 03/24/23 Expected End: 03/26/23 Transfers Patient will complete functional transfer with rolling walker with modified independence in order to prepare for ambulation. Start: 03/24/23 Expected End: 03/26/23 Therapy Time Individual Co-treatment Time In 1425 (OT / PT coeval 2/2 initial stand s/p surgery) Time Out 1447 Minutes 22 Zach Arthur OT Patient's Occupational Therapy Plan of Care supervision is transferred to a [facility] Services Occupational Therapist. Goals and/or treatment plan was established in collaboration with patient/family/other representatives. documented in this [facility]10-11-2023 Miscellaneous Notes* Care Coordination - Unknown Case Management - 03/25/2023 11:30 AM EDT Patient Choice Patient Name: TARIK DUNHAM Date of : 1950 All Providers Sent Referral Name: Home Health Services [facility] Address: [address] [place] [address], [address] [place] [address] Name: [facility] Phone: [phone] Address: [address] [place], [place] [id number] * Home Care - Beti Murillo RN - 03/25/2023 11:30 AM EDT Met with patient at bedside to advise on choosing another agency as this RN has not received a response yet from [facility]. Patient requesting [facility] for services. Referral to be processed. * Home Care - Beti Murillo RN - 03/25/2023 11:30 AM EDT Start [facility] Note Home Health Referral Educated patient and daughter at bedside on Home Care and services available. Patient offered choice of available [facility] and agreeable to PT/OT services with [facility] - Home Care. Care Types: [facility] Isolation Precautions: No active isolations Social Determinates of Health: Tobacco Use: Low Risk (03/24/2023) Patient History Smoking Tobacco Use: Never Smokeless Tobacco Use: Never Passive Exposure: Not on file Social History Substance and Sexual Activity Alcohol Use Yes Comment: liquor with dinner 3x week Social History Substance and Sexual Activity Drug Use Never Does the patient have any financial resource strain? No Does the patient have any food insecurities? No Does the patient have any housing instabilities? No If any of the above is noted as yes - consider a PRESSURE STEAMER TENDER evaluation once the patient returns home. START PATIENT REGISTRATION INFORMATION Order Information Order Signing Physician: No att. providers found Service Ordered RN ?: No Service Ordered PT ?: Yes Service Ordered OT ?: Yes Service Ordered ST ?: No Service Ordered PRESSURE STEAMER TENDER?:No Service Ordered GEOPHYSICAL LABORATORY CHIEF?: No Following Physician: Altaf Metz MD Following Physician Overseeing Physician: Altaf Metz MD (Required for Residents only) Agreeable to Follow? Yes Date/Time of Call 03/25/23 11:43 AM, Spoke with: ortho protocol Care Coordination Same Day SOC?: No Primary Care Physician: Garo Steele Primary Care Physician Primary Care Physician Address: [address] [place] [address] / [facility] [id number] Visit Instructions: N/A Service Discharge Location Type: Home with Home Health Care Service Facility Name: N/A Service Floor Facility: N/A Service Room No: N/A Demographics Patient Last Name: Charla Patient First Name: Tarik Language/Communication Barrier: no Service Address: [address] [place] [address]: [facility] ST: [place] Service ZIP: [address] Service (home) Other phone numbers: Telephone Information: Emergency Contact: Extended Emergency Contact Information Primary Emergency Contact: Uvaldo Dunham [address]: [address] [place], [place] [id number] [place] [address] Mobile Relation: Spouse Secondary Emergency Contact: Maria Dolores Heredia Address: [address] [place] [address] Mobile Relation: Daughter Admission Information Admit Date: 03/24/2023 Patient status at discharge: Post procedure recovery Admitting Diagnosis Unilateral primary osteoarthritis, right knee [M17.11] Primary osteoarthritis of right knee [M17.11] Caregiver Information Caregiver First Name: uvaldo Caregiver Last Name: charla Caregiver Relationship to Patient spouse Caregiver Caregiver Notes: N/A [employer] HIGHTECH: HI TECH - [facility] Procedure: Right Total Knee Arthroplasty Date of procedure: 03/24/2023 Precautions: None Surgeon: Altaf Metz MD END PATIENT REGISTRATION INFORMATION Pt Home Health goal tbd COVID Status 1. Do you have any upper respiratory symptoms (cough, SOB, Fever)? No 2. Have you been exposed to anyone with COVID-19 Virus? No Answer only if pending or positive for COVID-19? 1. Agreeable to wear PPE at each visit? No 2. Is the hospital supplying them with PPE upon Discharge? No Start PACC Summary General Report/ Additional Comments Fresh ortho Discharge Date: 03/25/2023 Referral Source-[facility]: (Hospital/Unit): 1w / B1-168/B1-168 A End PACC Note * Nurse Navigation Note - Sherry Garcia RN - 03/25/2023 8:30 AM EDT POD #1 RTKA Patient resting in bed. Daughter at bedside. She is hoping to be discharged this morning. Pain controlled. Instructed patient and daughter on ambit pain pump and incisional dressing. Verbalized understanding. All questions answered at this time. * Care Coordination - Karol Hensley RN - 03/25/2023 7:26 AM EDT Patient on 1W s/p L TKA. PT/OT Evals completed, recommending home with [facility]. [facility] following. DC orders in and signed. DC today with [facility]. * Home Care - Beti Murillo RN - 03/24/2023 5:59 PM EDT Patient/ Uvaldo in agreement with [facility] pt/ot. Would like referral sent to [facility] to check for acceptance. Referral to be sent and will update with response once received. * Nurse Navigation Note - Sherry Garcia RN - 03/24/2023 3:19 PM EDT Front wheeled walker delivered to patient. Primary Caregiver: self If assistance needed, confirmed caregiver ready, willing and able to care for patient at discharge:Yes Confirmed with: Uvaldo * Op Note - Altaf Metz MD - 03/24/2023 9:04 AM EDT Operative Report Patient Name: Tarik Dunham Date of : 1950 Date of Surgery: 03/24/23 DATE OF SURGERY: 03/24/23 PREOPERATIVE DIAGNOSIS: RIGHT Knee Degenerative Arthritis - M17.11 and RIGHT Valgus Deformity - M21.061 POSTOPERATIVE DIAGNOSIS: Same. PROCEDURE PERFORMED: Right Total Knee Arthroplasty, Kinematic Alignment SURGEON: Altaf Metz MD ASSISTANTS: Judit PGY-III and Cristino BUCKNER ANESTHESIA: Spinal, MAC, Nerve Block, and Local INTRAVENOUS FLUIDS: 800 mL ESTIMATED BLOOD LOSS: 100 mL TOURNIQUET TIME: 0 minutes DRAIN: None COMPLICATIONS: Patient tolerated the procedure well without anesthetic or surgical/operative complications. SPECIMENS: None COMPONENTS: DePuy Attune CR femoral component size 6, tibial component size 5, 5 MS tibial polyethylene insert, 32mm patellar component. INTRAOPERATIVE FINDINGS: Intraoperative findings confirmed the radiographic findings of degenerative arthritis characterized by loss of articular cartilage, subchondral sclerosis and marginal osteophytes in all three compartments of the knee. TISSUE REMOVED OR ALTERED: Periarticular bone removed via standard resection. COMORBIDITIES: No date: Arthritis No date: Cancer (CMS/HCC) ([facility]) Comment: right breast No date: Fractures Comment: pelvis, right shoulder, right wrist No date: Hyperlipidemia No date: Sleep apnea Comment: uses cpap OPERATIVE NOTE ADDENDUM: None HISTORY: The patient has progressive and debilitating knee pain secondary to end-stage osteoarthritis. The patient has clinical and radiographic evidence of end-stage degenerative joint disease of the knee and has failed nonoperative management. The patient was deemed appropriate for a total knee arthroplasty. Risks, benefits and alternatives to surgical treatment were discussed in detail with the patient and they wish to proceed with the total knee replacement. The patient was seen and thoroughly evaluated by a perioperative medical parasitologist preoperatively and was optimized for surgical intervention. SURGICAL PROCEDURE: The patient was identified in the preoperative holding area and the correct knee was identified and marked. The patient was then brought to the operating room where a satisfactorylevel of anesthesia was obtained by the anesthesia service. Pre-scrub of the operative extremity was completed with alcohol solution. IV antibiotics and tranexamic acid were administered. The leg wasprepped with Chloroprep and draped in standard sterile fashion. A surgical time out was called, identifying the correct patient, correct extremity, correct procedure, and that IV antibiotics had beenappropriately given, in addition to identifying that the surgical implants, radiographs, and vendors were available in the operating room. An anterior longitudinal incision was made. Sharp dissection was carried down through the skin and subcutaneous tissue and a median parapatellar arthrotomy was performed, leaving a cuff of tendon adjacent to the VMO to facilitate closure. The anteromedial retinaculum was elevated off the medial tibia and subperiosteal dissection was performed underneath the deep medial collateral ligament. The superficial MCL was protected with a 45-degree bent Hohmann retractor. The retropatellar fat pad was excised to facilitate exposure. The lateral patellofemoral ligament was released and the patella was subluxated into the lateral gutter of the knee. The knee was then brought into flexion and a right angle retractor was placed lateral to the tibia to protect the lateral sided structures and the patella. The anterior cruciate ligament was divided. Any remaining cartilage on the affected compartment was removed with a curette and/or oscillating saw. The other compartment was intact. We then obtained access to the femoral canal with the stepped drill. An intramedullary khushi was placed. The appropriate valgus angle was replicated accounting for cartilage loss with a 2mm spacer, visualizing the paddles were flush with distal femur. The appropriate resection depth was set based on i mplant thickness. The distal femoral cut was made with an oscillating saw while the medial and lateral collateral ligaments were protected with retractors. The cuts were verified with a caliper to hedrick appropriate resection. The anteroposterior femoral sizing guide was then inserted onto the distal femur with the feet along the posterior femoral condyles and the sizing boom impacting the anterior femoral surface. The femoral component that would best reproduce the patient's anteroposterior anatomical dimensions without notching was determined, the rotation dialed in appropriately by visualizing Denton's line. Alignment holes drilled. The femoral four-in-one block was then placed onto the distal femur, assessed to ensure an adequate mediolateral dimension, and secured with threaded pins. A comma guide was used to confirm adequate anterior clearance to avoid femoral notching. With themedial and lateral collateral ligaments protected with retractors, the femoral finishing cuts were made in the following order with an oscillating saw: anterior, posterior condyles, anterior chamfers, posterior chamfers. The finishing guide was removed and all bony fragments were removed carefully.The notch cut was performed according to protocol. Attention was then turned to the tibia. A double-prong PCL retractor was placed posterior to the tibia, retracting the tibia anteriorly. A medial 45 degree bent Hohmann and a 90 degree bent lateral retractor was maintained to protect the collateral ligaments. Medial and lateral meniscal remnants were excised with Bovie electrocautery. The extramedullary tibial cutting guide was then aligned with the long axis of the tibia and the cutting guide pegged perpendicular to the mechanical axis. The guide was set to a depth to take the appropriate resection off the medial and lateral surfaces based on preoperative templating and intra-operative landmarks. The cut was approximated by referencing the intact cartilage medial and lateral to the tibial eminence, attempting to cut perpendicular at a right angle formed by bisecting the two sides. Guide was pinned. An oscillating saw was used to cut the medial and lateral articular surfaces.An osteotome was used to carefully elevate the articular surface and then removed from the soft tissues with a bovie electrocautery. The trial tibial baseplate was set onto the cut surface, felt to be the appropriate size and the alignment checked with the alignment khushi. The alignment khushi was used to verify slope was appropriate and that varus/valgus alignment was appropriate given the patient's anatomy and pre- operative deformity. Residual marginal medial tibial osteophytes were resected to avoid tenting of the medial collateral ligament. Lamina spreaders were used to expose the posterior aspect of the knee. Residual posterior femoral condylar osteophytes were resected with a curved osteotome and removed carefully with a pituitary rongeur. The medial and lateral compartments were then assessed for symmetry with gap mold checker blocks, in both flexion and extension, to ensure symmetrical extension gap, and a slight trapezoidal flexion gap. The gaps were able to be fined tuned by re-cutting the tibia if needed in order to ensure a solid extension space. The trial femoral and tibial components were inserted with the articular trial liner insert and the components were observed to fit well. The knee was taken through a full range of motion and found to demonstrate full extension without residual flexion contracture with the trial tibial insert. The PCL was maintained, appropriate flexion gap balancing was appreciated.. Full flexion was obtained without anterior tibial trial liftoffand did not demonstrate any flexion instability. The tibial component was allowed to float and optimize its rotation and anteroposterior translation. Tibiofemoral kinematics was optimized in 90 degrees of flexion and the rotation was then marked with a Bovie and corresponded approximately to the medial portion of the tibial tubercle. Coronal alignment was appropriate and symmetric medial and lateral gap balancing was present with varus and valgus stress at 0 and 30 degrees to 1 mm or less difference. Medial flexion space was tight to about 1- 2mm of laxity with slightly more laxity laterally in flexion accepted/preferred. Attention was then turned to the patella. The knee was kept in full extension, the patella was heldsecurely with two towel clips and was measured with calipers. An oscillating saw was used to cut the articular surface with free hand technique to a depth that restored the pre-resection patellar thickness. Calipers were then used to measure and ensure an adequate residual thickness and confirm a symmetrical cut in all four quadrants. Three peg holes were then drilled using the template guide andthe trial component was inserted. The knee taken through range of motion and patellofemoral tracking was observed to be satisfactory. All trial components except for the tibial trial were removed. The tibial trial was then pegged securely into place in the correct rotation. The tibia was then prepared with the tibial drill guide and keeled punch impactor. All sclerotic surfaces were prepared with small drill holes to facilitate cement interdigitation. All bony surfaces were cleaned thoroughly with Pulsavac lavage and dried, and then further prepared with compressed sterile carbon dioxide to enhance cement fixation. The actual implants were brought onto the surgical field and assembled. Simplex low viscosity cement with 750mg of cefuroxime per batch was prepared and the components were securely cemented with pressurization. The cement was allowedto cure with the knee held in extension and visual confirmation of secure component fixation was obtained in all components. While the knee was in extension and the cement drying, a aaliyah- articular solution was injected into the aaliyah-articular tissues including the retinaculum, synovium, quadriceps tendon and VMO, taking care to avoid any neurovascular structures. Upon drying, all extraneous cement was removed from the implant edges, the trial insert was removed and cement removed from all aspects of the knee, including the posterior condyles. The knee was vigorously irrigated with Pulsavac lavage to remove any cement particles and the final polyethylene tibial component was inserted and impacted into a locked position. The knee demonstrated satisfactory coronal alignment, soft tissue balancing, and patellofemoral tracking. Hemostasis was assured to be obtained prior to closure. Attention was then turned to closure. Dilute betadine solution was used to soak in the knee for 3 minutes. Three liters of pulsavac lavage was then used to irrigate out the knee. The medial arthrotomy was closed in full knee flexion with a #1 Vicryl suture for the high tension areas superior to andat the level of the equator of the patella, followed by running #1 Stratafix barbed monofilament suture to close the entire arthrotomy. No deep fatty tissue closure was necessary. The dermal layer was closed with interrupted 2-0 Vicryl sutures and the skin was closed with a running 3-0 monocryl subcuticular closure. Dermabond was used with Prineo. A sterile OpSite dressing was placed, Carmine wrap, and cryotherapy was applied. All sponge and needle counts were correct at the end of the surgery and I was present during all critical aspects of the surgical procedure. The patient was transferred to the recovery room. * Perioperative Nursing Note - Anel Amaya RN - 03/24/2023 6:32 AM EDT Patient educated on importance of coughing/ deep breathing after surgery to reduce risk of pneumonia. Patient educated on importance of early mobility to reduce the risk of blood clots. Falls prevention information reviewed with patient. Post-operative pain control and ways to prevent constipation discussed with patient. documented in this encounterSTriHealth Good Samaritan [id number] Note* Care Coordination - Unknown Case Management - 03/25/2023 11:30 AM EDT Patient Choice Patient Name: TARIK DUNHAM Date of : 1950 All Providers Sent Referral Name: Home Health Services [facility] Address: [address] [place] [address], [address] [place] [address] Name: [facility] Phone: [phone] Address: [address] [place] [id number] [facility] [id number] Note* Home Care - Beti Murillo RN - 03/25/2023 11:30 AM EDT Met with patient at bedside to advise on choosing another agency as this RN has not received a response yet from [facility]. Patient requesting [facility] for services. Referral to be processed. [facility] [id number] Note* Home Care - Beti Murillo RN - 03/25/2023 11:30 AM EDT Start PACC Note Home Health Referral Educated patient and daughter at bedside on Home Care and services available. Patient offered choice of available [facility] and agreeable to PT/OT services with [facility] - Home Care. Care Types: [facility] Fresh Ortho Isolation Precautions: No active isolations Social Determinates of Health: Tobacco Use: Low Risk (03/24/2023) Patient History Smoking Tobacco Use: Never Smokeless Tobacco Use: Never Passive Exposure: Not on file Social History Substance and Sexual Activity Alcohol Use Yes Comment: liquor with dinner 3x week Social History Substance and Sexual Activity Drug Use Never Does the patient have any financial resource strain? No Does the patient have any food insecurities? No Does the patient have any housing instabilities? No If any of the above is noted as yes - consider a PRESSURE STEAMER TENDER evaluation once the patient returns home. START PATIENT REGISTRATION INFORMATION Order Information Order Signing Physician: No att. providers found Service Ordered RN ?: No Service Ordered PT ?: Yes Service Ordered OT ?: Yes Service Ordered ST ?: No Service Ordered PRESSURE STEAMER TENDER?:No Service Ordered GEOPHYSICAL LABORATORY CHIEF?: No Following Physician: Altaf Metz MD Following Physician Overseeing Physician: Altaf Metz MD (Required for Residents only) Agreeable to Follow? Yes Date/Time of Call 03/25/23 11:43 AM, Spoke with: ortho protocol Care Coordination Same Day SOC?: No Primary Care Physician: Garo Steele Primary Care Physician Primary Care Physician Address: [address] [place] [address] Visit Instructions: N/A Service Discharge Location Type: Home with Home Health Care Service Facility Name: N/A Service Floor Facility: N/A Service Room No: N/A Demographics Patient Last Name: Charla Patient First Name: Tarik Language/Communication Barrier: no Service Address: [address] [place] [address]: [facility] ST: [place] Service ZIP: [address] Service (home) Other phone numbers: Telephone Information: Emergency Contact: Extended Emergency Contact Information Primary Emergency Contact: Uvaldo Dunham Address: [address] [place], [place] [id number] [place] [address] Mobile Relation: Spouse Secondary Emergency Contact: Mari aDolores Heredia Address: [address] [place] [address] Mobile Relation: Daughter Admission Information Admit Date: 03/24/2023 Patient status at discharge: Post procedure recovery Admitting Diagnosis Unilateral primary osteoarthritis, right knee [M17.11] Primary osteoarthritis of right knee [M17.11] Caregiver Information Caregiver First Name: uvaldo Caregiver Last Name: charla Caregiver Relationship to Patient spouse Caregiver Caregiver Notes: N/A [employer] HIGHTECH: HI TECH - FRESH ORTHO Procedure: Right Total Knee Arthroplasty Date of procedure: 03/24/2023 Precautions: None Surgeon: Altaf Metz MD END PATIENT REGISTRATION INFORMATION Pt Home Health goal tbd COVID Status 1. Do you have any upper respiratory symptoms (cough, SOB, Fever)? No 2. Have you been exposed to anyone with COVID-19 Virus? No Answer only if pending or positive for COVID-19? 1. Agreeable to wear PPE at each visit? No 2. Is the hospital supplying them with PPE upon Discharge? No Start PACC Summary General Report/ Additional Comments Fresh ortho Discharge Date: 03/25/2023 Referral Source-PACC: (Hospital/Unit): 1w / B1-168/B1-168 A End PACC Note [facility] [id number] Nurse Note* Mitzy Wilder RN - 03/25/2023 11:06 AM EDT Home going instructions given. Pt is able to teach back total knee precautions, ambit pain pump andfollow-up. Medications delivered to pt prior to dc home. [facility] [id number] Nurse Note* Mitzy Wilder RN - 03/25/2023 11:06 AM EDT Home going instructions given. Pt is able to teach back total knee precautions, ambit pain pump andfollow-up. Medications delivered to pt prior to dc home. documented in this encounterSTriHealth Good Samaritan [id number] Note* Nurse Navigation Note - Sherry Garcia RN - 03/25/2023 8:30 AM EDT POD #1 RTKA Patient resting in bed. Daughter at bedside. She is hoping to be discharged this morning. Pain controlled. Instructed patient and daughter on ambit pain pump and incisional dressing. Verbalized understanding. All questions answered at this time. [facility] [id number] Note* Care Coordination - Karol Hensley RN - 03/25/2023 7:26 AM EDT Patient on 1W s/p L TKA. PT/OT Evals completed, recommending home with [facility]. PACC following. DC orders in and signed. DC today with [facility]. [facility] [id number] Note* Home Care - Beti Murillo RN - 03/24/2023 5:59 PM EDT Patient/ Uvaldo in agreement with [facility] pt/ot. Would like referral sent to [facility] to check for acceptance. Referral to be sent and will update with response once received. [facility] [id number] Consult note* Michelle Schwarz MD - 03/24/2023 5:53 PM EDTAssociated Order(s): IP CONSULT TO INTERNAL MEDICINE Images from the original note were not included. Hospital Medicine Consult Patient - Tarik Dunham, Age - 73 y.o. - 1950 Room Number - @ROOMBEDREFRESH@ Consulting - Altaf Metz MD Primary Care Physician - Garo Steele Date of Admission - 03/24/2023 6:05 AM Hospital Day - 0 Reason for Consult: Medical Management HISTORY OF PRESENT ILLNESS: Tarik is a 73 y.o. female pmhx below consulted for medical managment postoperative day 0 for rightTKA. Doing well postoperatively - walked to the rest room, no nausea. Does have a headache at this time. No other concerns. Denies chest pain, sob, abdominal pain, nausea, vomiting, diarrhea, constipa tion, fevers, or chills. Past Medical History: Past Medical History: Diagnosis Date Arthritis Cancer (CMS/HCC) (HCC) right breast Fractures pelvis, right shoulder, right wrist Hyperlipidemia Sleep apnea uses cpap Past Surgical History: Past Surgical History: Procedure Laterality Date BREAST BIOPSY BREAST RECONSTRUCTION Bilateral CARPAL TUNNEL RELEASE CATARACT EXTRACTION COLONOSCOPY DILATION AND CURETTAGE OF UTERUS FOOT SURGERY Right pin placed in big toe HYSTERECTOMY MASTECTOMY Bilateral TONSILLECTOMY TOTAL KNEE ARTHROPLASTY Right 03/24/2023 Medications: acetaminophen, 650 mg, Oral, q6h ceFAZolin, 2,000 mg, IntraVENous, q8h dexAMETHasone, 8 mg, Oral, 4 times per day [START ON 03/25/2023] enoxaparin, 40 mg, SubCUTAneous, Daily famotidine, 20 mg, Oral, BID ketorolac, 15 mg, IntraVENous, q6h sodium chloride 0.9%, 10 mL, IntraVENous, 2 times per day traMADol, 50 mg, Oral, q6h lactated Ringer's, 50 mL/hr, Last Rate: Stopped (03/24/23 1042) ropivacaine, 500 mL, Last Rate: 500 mL (03/24/23 1150) sodium chloride, 125 mL/hr, Last Rate: Stopped (03/24/23 1445) PRN medications: bisacodyl, diphenhydrAMINE OR diphenhydrAMINE, HYDROmorphone OR HYDROmorphone, ondansetron ODT OR ondansetron, oxyCODONE OR oxyCODONE, sodium chloride, sodium chloride 0.9% Allergies: Iodinated contrast media Social History: Social History Socioeconomic History Marital status: Spouse name: Not on file Number of children: Not on file Years of education: Not on file Highest education level: Not on file Occupational History Not on file Tobacco Use Smoking status: Never Smokeless tobacco: Never Vaping Use Vaping Use: Never used Substance and Sexual Activity Alcohol use: Yes Comment: liquor with dinner 3x week Drug use: Never Sexual activity: Not on file Other Topics Concern Not on file Social History Narrative Not on file Social Determinants of Health Financial Resource Strain: Not on file Food Insecurity: Not on file Transportation Needs: Not on file Physical Activity: Not on file Stress: Not on file Social Connections: Not on file Intimate Partner Violence: Not on file Housing Stability: Not on file Family History: @FAMHXNH@ REVIEW OF SYSTEMS: 10 point ROS obtained, as per HPI, otherwise NEG Physical Exam: Vitals: BP 126/73 Pulse 77 Temp 36.6 C (97.9 F) (Temporal) Resp 16 Ht 5' 6" (1.676 m) Wt 140 lb (63.5 kg) SpO2 97% BMI 22.60 kg/m BMI Classification: Normal Weight (BMI 18.5-24.9) Pulse Ox: SpO2 Av.2 % Min: 94 % Max: 100 % Supplemental O2: O2 Flow Rate (L/min): 2 L/min General appearance: No apparent distress, appears stated age and cooperative with exam. HEENT: Normal cephalic, atraumatic without obvious deformity. Pupils equal, round, and reactive to light. Extra ocular muscles intact. Conjunctivae/corneas clear. Neck: Supple, with full range of motion. No jugular venous distention. Trachea midline. No lymphadenopathy. Respiratory: Normal respiratory effort. Clear to auscultation, bilaterally without Rales/Wheezes/Rhonchi. Cardiovascular: Regular rate and rhythm with normal S1/S2 without murmurs, rubs or gallops. Abdomen: Soft, non-tender, non-distended with normal bowel sounds. No rebound or guarding. Musculoskeletal: No clubbing, cyanosis or edema bilaterally. Full range of motion without deformity, +2 peripheral pulses in all extremities. Dressing and pain ball to right knee Skin: Skin color, texture, turgor normal. No rashes or lesions. Neurologic: Neurovascularly intact without any focal sensory/motor deficits. Cranial nerves: II-XIIintact, grossly non-focal. Psychiatric: Alert and oriented, thought content appropriate, normal insight. LABS: No results found for this or any previous visit (from the past 24 hour(s)). Urine Culture: No results found for this or any previous visit. IMAGING: See report Assessment Right Knee OA s/p TKA BRUNO - brings own CPAP machine HLD - not on meds HX of breast ca s/p mastectomy GERD - not taking PPI at home Neuropathy - continue gabapentin Medical Decision Making -home medications as ordered - labs stable pre operative, will monitor, -am labs, replace lytes prn -PT/OT/increase activity/pain control Anticipated Discharge - Date - 03/25/2023 - Location - Home - Pending the following - surgical clearance Total time spent (which include face to face and non face to face encounters) : 45 minutes Toxic drug monitoring/narrow therapeutic index drug monitoring : # Drug name : # Route administered : # Method of monitoring : Extended Emergency Contact Information Primary Emergency Contact: Uvaldo Dunham Address: [facility] [place], [place] [id number] [place] [address] Mobile Relation: Spouse Secondary Emergency Contact: Maria Dolores Heredia Address: [address] [place] [address] [facility] Mobile Relation: Daughter -see below for additional orders; further recommendations to follow Orders Placed This Encounter Procedures DME order for walker as OP XR knee 1 or 2 views right Basic metabolic panel Hemoglobin and hematocrit, blood Adult diet Regular Notify physician per STANDARD parameters Notify Provider - hemoglobin Vital Signs Neurovascular checks Wound care Ice therapy Monitor for signs/symptoms of urinary retention Straight cath Activity No Restrictions; 1) Ambulate in room progressing to hallway with assistive device four times daily (including PT). 2) Bathroom privileges with assistance. 3) Up in bedside chair at least [place] tolerated. Full weight bearing as tolerated Incentive spirometry nursing Notify patient's primary care provider of admission Advance diet as tolerated Place sequential compression device Full Code Inpatient consult to Internal Medicine--B INTERNAL MEDICINE [facility] Supplement:Breakfast; Fruit Punch Aris (Wound Healing Oral Supplement) OT eval and treat PT eval and treat Initiate Oxygen Therapy Protocol Encourage deep breathing and coughing Post Procedure Recovery Transfer patient to new unit Discharge patient Place in outpatient/hospital ambulatory surgery Thank you for allowing us to participate in the care and management of this patient. Michelle Schwarz MD Division of Hospitalist Medicine Inpatient Medical Services/[facility] [id number] Consult note* Michelle Schwarz MD - 03/24/2023 5:53 PM EDTAssociated Order(s): IP CONSULT TO INTERNAL MEDICINE Images from the original note were not included. Hospital Medicine Consult Patient - Tarik Dunham, Age - 73 y.o. - 1950 Room Number - @ROOMBEDREFRESH@ Consulting - Altaf Metz MD Primary Care Physician - Garo Steele Date of Admission - 03/24/2023 6:05 AM Hospital Day - 0 Reason for Consult: Medical Management HISTORY OF PRESENT ILLNESS: Tarik is a 73 y.o. female pmhx below consulted for medical managment postoperative day 0 for rightTKA. Doing well postoperatively - walked to the rest room, no nausea. Does have a headache at this time. No other concerns. Denies chest pain, sob, abdominal pain, nausea, vomiting, diarrhea, constipa tion, fevers, or chills. Past Medical History: Past Medical History: Diagnosis Date Arthritis Cancer (CMS/HCC) (HCC) right breast Fractures pelvis, right shoulder, right wrist Hyperlipidemia Sleep apnea uses cpap Past Surgical History: Past Surgical History: Procedure Laterality Date BREAST BIOPSY BREAST RECONSTRUCTION Bilateral CARPAL TUNNEL RELEASE CATARACT EXTRACTION COLONOSCOPY DILATION AND CURETTAGE OF UTERUS FOOT SURGERY Right pin placed in big toe HYSTERECTOMY MASTECTOMY Bilateral TONSILLECTOMY TOTAL KNEE ARTHROPLASTY Right 03/24/2023 Medications: acetaminophen, 650 mg, Oral, q6h ceFAZolin, 2,000 mg, IntraVENous, q8h dexAMETHasone, 8 mg, Oral, 4 times per day [START ON 03/25/2023] enoxaparin, 40 mg, SubCUTAneous, Daily famotidine, 20 mg, Oral, BID ketorolac, 15 mg, IntraVENous, q6h sodium chloride 0.9%, 10 mL, IntraVENous, 2 times per day traMADol, 50 mg, Oral, q6h lactated Ringer's, 50 mL/hr, Last Rate: Stopped (03/24/23 1042) ropivacaine, 500 mL, Last Rate: 500 mL (03/24/23 1150) sodium chloride, 125 mL/hr, Last Rate: Stopped (03/24/23 1445) PRN medications: bisacodyl, diphenhydrAMINE OR diphenhydrAMINE, HYDROmorphone OR HYDROmorphone, ondansetron ODT OR ondansetron, oxyCODONE OR oxyCODONE, sodium chloride, sodium chloride 0.9% Allergies: Iodinated contrast media Social History: Social History Socioeconomic History Marital status: Spouse name: Not on file Number of children: Not on file Years of education: Not on file Highest education level: Not on file Occupational History Not on file Tobacco Use Smoking status: Never Smokeless tobacco: Never Vaping Use Vaping Use: Never used Substance and Sexual Activity Alcohol use: Yes Comment: liquor with dinner 3x week Drug use: Never Sexual activity: Not on file Other Topics Concern Not on file Social History Narrative Not on file Social Determinants of Health Financial Resource Strain: Not on file Food Insecurity: Not on file Transportation Needs: Not on file Physical Activity: Not on file Stress: Not on file Social Connections: Not on file Intimate Partner Violence: Not on file Housing Stability: Not on file Family History: @FAMXNH@ REVIEW OF SYSTEMS: 10 point ROS obtained, as per HPI, otherwise NEG Physical Exam: Vitals: BP 126/73 Pulse 77 Temp 36.6 C (97.9 F) (Temporal) Resp 16 Ht 5' 6" (1.676 m) Wt 140 lb (63.5 kg) SpO2 97% BMI 22.60 kg/m BMI Classification: Normal Weight (BMI 18.5-24.9) Pulse Ox: SpO2 Av.2 % Min: 94 % Max: 100 % Supplemental O2: O2 Flow Rate (L/min): 2 L/min General appearance: No apparent distress, appears stated age and cooperative with exam. HEENT: Normal cephalic, atraumatic without obvious deformity. Pupils equal, round, and reactive to light. Extra ocular muscles intact. Conjunctivae/corneas clear. Neck: Supple, with full range of motion. No jugular venous distention. Trachea midline. No lymphadenopathy. Respiratory: Normal respiratory effort. Clear to auscultation, bilaterally without Rales/Wheezes/Rhonchi. Cardiovascular: Regular rate and rhythm with normal S1/S2 without murmurs, rubs or gallops. Abdomen: Soft, non-tender, non-distended with normal bowel sounds. No rebound or guarding. Musculoskeletal: No clubbing, cyanosis or edema bilaterally. Full range of motion without deformity, +2 peripheral pulses in all extremities. Dressing and pain ball to right knee Skin: Skin color, texture, turgor normal. No rashes or lesions. Neurologic: Neurovascularly intact without any focal sensory/motor deficits. Cranial nerves: II-XIIintact, grossly non-focal. Psychiatric: Alert and oriented, thought content appropriate, normal insight. LABS: No results found for this or any previous visit (from the past 24 hour(s)). Urine Culture: No results found for this or any previous visit. IMAGING: See report Assessment Right Knee OA s/p TKA BRUNO - brings own CPAP machine HLD - not on meds HX of breast ca s/p mastectomy GERD - not taking PPI at home Neuropathy - continue gabapentin Medical Decision Making -home medications as ordered - labs stable pre operative, will monitor, -am labs, replace lytes prn -PT/OT/increase activity/pain control Anticipated Discharge - Date - 03/25/2023 - Location - Home - Pending the following - surgical clearance Total time spent (which include face to face and non face to face encounters) : 45 minutes Toxic drug monitoring/narrow therapeutic index drug monitoring : # Drug name : # Route administered : # Method of monitoring : Extended Emergency Contact Information Primary Emergency Contact: Uvaldo Dunham Address: [id number] [place] [address] Mobile Relation: Spouse Secondary Emergency Contact: Maria Dolores Heredia Address: [address] [place] Relation: Daughter -see below for additional orders; further recommendations to follow Orders Placed This Encounter Procedures DME order for walker as OP XR knee 1 or 2 views right Basic metabolic panel Hemoglobin and hematocrit, blood Adult diet Regular Notify physician per STANDARD parameters Notify Provider - hemoglobin Vital Signs Neurovascular checks Wound care Ice therapy Monitor for signs/symptoms of urinary retention Straight cath Activity No Restrictions; 1) Ambulate in room progressing to hallway with assistive device four times daily (including PT). 2) Bathroom privileges with assistance. 3) Up in bedside chair at least T[place] tolerated. Full weight bearing as tolerated Incentive spirometry nursing Notify patient's primary care provider of admission Advance diet as tolerated Place sequential compression device Full Code Inpatient consult to Internal Medicine--B INTERNAL MEDICINE [facility] Supplement:Breakfast; Fruit Punch Aris (Wound Healing Oral Supplement) OT eval and treat PT eval and treat Initiate Oxygen Therapy Protocol Encourage deep breathing and coughing Post Procedure Recovery Transfer patient to new unit Discharge patient Place in outpatient/hospital ambulatory surgery Thank you for allowing us to participate in the care and management of this patient. Michelle Schwarz MD Division of Hospitalist Medicine Inpatient Medical Services/[facility] documented in this [facility]10-10-2023 Note* Nurse Navigation Note - Sherry Garcia RN - 03/24/2023 3:19 PM EDT Front wheeled walker delivered to patient. Primary Caregiver: self If assistance needed, confirmed caregiver ready, willing and able to care for patient at discharge:Yes Confirmed with: Uvaldo [id number] History and physical note* Altaf Metz MD - 03/24/2023 9:19 AM EDT The history and physical exam completed for this patient has been reviewed. The patient has been seen and examined and there are no apparent interval changes to the patient's status. The patient has been given the opportunity to ask any additional questions regarding the proposed procedure. The patient appears ready to proceed as planned. All questions were answered. Altaf Metz MD [facility] Department of Orthopedic Surgery Adult Hip and Knee Reconstruction [facility] Certain Work Phone: [phone] History and physical note* Altaf Metz MD - 03/24/2023 9:19 AM EDT The history and physical exam completed for this patient has been reviewed. The patient has been seen and examined and there are no apparent interval changes to the patient's status. The patient has been given the opportunity to ask any additional questions regarding the proposed procedure. The patient appears ready to proceed as planned. All questions were answered. Altaf Metz MD [facility] Department of Orthopedic Surgery Adult Hip and Knee Reconstruction * JESSICA Lincoln - 03/10/2023 9:30 AM EDT Comprehensive PreSurgical History and Physical ? Name: Tarik Dunham : 1950 (Age-73 y.o.) Date of Service: Pt seen/examined on 03/10/2023 Procedure Information Date/Time: 03/24/23929 Procedure: RIGHT TOTAL KNEE ARTHROPLASTY (Right: Knee) - 60 MIN Location: [address] Operating Room Surgeons: Altaf Metz MD Chief Complaint: Knee pain ASSESSMENT/PLAN: Patient is considered low/intermediate risk for this intermediate risk procedure/surgery noted above () with no reducible risk factors. Based on the above evaluation, the benefits of the planned procedure likely exceed the risks. The patient is medically optimized to proceed with the planned procedure without any further cardiopulmonary testing. 1) Right knee osteoarthritis Managed per surgery 2) BRUNO Compliant with CPAP Instructed pt to bring machine DOS 3) HLD Currently not on meds 4) Hx breast CA s/p mastectomy 5) GERD Stable. Currently taking PPI Avoidance of triggers encouraged 6) Neuropathy Currently taking gabapentin Visit Type: Pre-Admission Testing Visit Labs Ordered: YES - PER PAT PROTOCOL Sleep Referral Ordered: NO - ALREADY DIAGNOSED WITH BRUNO AND COMPLIANT WITH CPAP The patient meets the criteria for [facility] total joint replacement protocol. Total time spent (which include face to face and non face to face encounters) : 45 minutes Toxic drug monitoring/narrow therapeutic index drug monitoring : # Drug name : n/a # Route administered : n/a # Method of monitoring : n/a PAT Protocol referenced includes: 1. Anesthesia Lab Protocol Orders 2. Perioperative Cardiovascular Risk Assessment 3. Anesthesia Assessment 4. Pain Assessment and Acute Pain Service Consult (if appropriate) 5. Medical Clearance/Consult from Internal Medicine (IMS) 6. Shower/Wash Order (for designated surgeries) 7. BRUNO Screen and Sleep Clinic Referral (if appropriate) History Of Present Illness: 73 y.o. female who presents with chief complaint mentioned above. Per surgeon's note Symptoms began gradually several years ago. She describes the symptoms as achingand burning. The pain is diffusely around the knee. Symptoms improve with rest, medication: Celebrex, Tylenol used and beneficial. The symptoms are exacerbated by stair climbing, getting up from a chair, weight bearing, walking . The knee has given out or felt unstable. The patient can bend and straighten the knee fully and does not have mechanical symptoms (catching, locking). Able to walk 1-2 blocks and is able to use stairs. Overall, the patient feels as if this condition is moderately impacting their quality of life and ability to do activities of daily living. Pt has seen the surgeon and elected for above procedure. Denies Hx of HTN, DM, Asthma/COPD, CAD, CHF, a fib, NV, TIA/CVA, DVT/PE Hx problems with anesthesia? - delayed emergence Dental? - no missing teeth nothing loose or broken no partials or dentures Snore at night? - +bruno using cpap Past Medical History: Past Medical History: No date: Arthritis No date: Cancer (CMS/HCC) ([facility]) Comment: right breast No date: Fractures Comment: pelvis, right shoulder, right wrist No date: Hyperlipidemia No date: Sleep apnea Comment: uses cpap Past Surgical History: Past Surgical History: No date: BREAST BIOPSY No date: BREAST RECONSTRUCTION; Bilateral No date: CARPAL TUNNEL RELEASE No date: CATARACT EXTRACTION No date: COLONOSCOPY No date: DILATION AND CURETTAGE OF UTERUS No date: FOOT SURGERY; Right Comment: pin placed in big toe No date: HYSTERECTOMY No date: MASTECTOMY; Bilateral No date: TONSILLECTOMY Medications Prior to Admission: Current Outpatient Medications: celecoxib (CeleBREX) 200 MG capsule, TAKE 1 CAPSULE BY MOUTH EVERY DAY FOR 90 DAYS, Disp: , Rfl: cholecalciferol (Vitamin D-3) 50 MCG (1999 UT) capsule, Take 2,000 Units by mouth in the morning., Disp: , Rfl: gabapentin (Neurontin) 300 MG capsule, Take 300 mg by mouth 3 times daily., Disp: , Rfl: magnesium, chelated, 100 MG tablet, Take 200 mg by mouth in the morning., Disp: , Rfl: ofloxacin (Ocuflox) 0.3 % ophthalmic solution, INSTILL 1 DROP INTO LEFT EYE FOUR TIMES DAILY X 4 DAYS., Disp: , Rfl: omeprazole (PriLOSEC) [address] capsule, Take 40 mg by mouth every morning (before breakfast). Do not crush or chew., Disp: , Rfl: CHRONIC NARCOTIC USE: No Allergies: Iodinated contrast media If patient has opioid allergy, is it okay to take Acetaminophen: N/A Social History: TOBACCO: reports that she has never smoked. She has never used smokeless tobacco. ETOH: reports current alcohol use. Social History Substance and Sexual Activity Drug Use Never Family History: No family history on file. REVIEW OF SYSTEMS: Review of Systems Constitutional: Negative for chills and fever. Respiratory: Negative for shortness of breath. Cardiovascular: Negative for chest pain. Pertinent positives as noted in the HPI. Physical Exam: Physical Exam Constitutional: General: She is awake. She is not in acute distress. Appearance: Normal appearance. HENT: Head: Normocephalic and atraumatic. Eyes: Extraocular Movements: Extraocular movements intact. Conjunctiva/sclera: Conjunctivae normal. Cardiovascular: Rate and Rhythm: Normal rate and regular rhythm. Heart sounds: Normal heart sounds. Pulmonary: Effort: Pulmonary effort is normal. Breath sounds: Normal breath sounds. Abdominal: Palpations: Abdomen is soft. Musculoskeletal: General: Normal range of motion. Cervical back: Normal range of motion. Skin: General: Skin is warm and dry. Neurological: General: No focal deficit present. Mental Status: She is alert and oriented to person, place, and time. Psychiatric: Mood and Affect: Mood normal. Behavior: Behavior normal. Vitals: Vitals Value Taken Time BP 130/53 03/10/23923 Temp 36.3 C (97.4 F) 03/10/23923 Pulse 65 03/10/23923 Resp 16 03/10/23923 SpO2 99 % 03/10/23923 BP 130/53 Pulse 65 Temp 36.3 C (97.4 F) (Temporal) Resp 16 Ht 1.676 m (5' 6") Wt 64.7 kg (142 lb 9.6 oz) SpO2 99% BMI 23.02 kg/m Labs: Lab Results Component Value Date WBC 5.5 03/10/2023 HGB 12.0 03/10/2023 HCT 35.3 03/10/2023 MCV 87.5 03/10/2023 PLT 311 03/10/2023 Lab Results Component Value Date NA 138 03/10/2023 K 4.4 03/10/2023 CL 104 03/10/2023 CO2 29 03/10/2023 BUN 15 03/10/2023 CREATININE 0.54 03/10/2023 GLUCOSE 100 03/10/2023 CALCIUM 9.3 03/10/2023 PROT 6.8 03/10/2023 ALKPHOS 65 03/10/2023 AST 26 03/10/2023 ALT 20 03/10/2023 EGFR >90.0 03/10/2023 Obed's Simple Cardiac Risk Index: OBED'S SIMPLE CARDIAC RISK SCORE: 0 Interpretation: 0 Points Class I 0.5% 1 Point Class II 1.3% 2 Points Class III 3.6% 3+ Points Class IV 9.1% METS >4 METS (Able to climb a flight of stairs with no chest pain or shortness of breath): Yes goes slow d/t joint pain, no exertional CP or SOB Walk indoors, such as around the house (1.75 METs), Do light work around the house, such as dusting or washing dishes (2.70 METs), Take care of self, that is eating, dressing, bathing, using the toilet (2.75 METs), Do moderate work around the house such as vacuuming, sweeping floors, or carrying in groceries (3.50 METs), Do yardwork, such as raking leaves, weeding,or pushing a power mower (4.50 METs), Climb a flight of stairs or walk up a hill (5.50 METs) PAT Pain Score: Pain Score: 8 Postop Pain Management Plan (Pain consult ordered?): Pain score >6 in PAT - Pain consult recommended, will defer consult to surgical team ? EKG: Done today: Encounter Date: 03/10/23 ECG 12 lead Result Value Heart Rate 64 QRSD Interval 80 QT Interval 396 QTC Interval 409 P [place] 58 QRS [place] 51 T Wave [place] 39 CO Interval 152 Impression SINUS RHYTHM No previous ECG available for comparison ECHO and EF:None on file No components found for: "LVEF", "LVEFMODE" Electronically signed by: JESSICA Lincoln Date: 03/10/2023 at 10:30 AM documented in this [facility]10-10-2023 Note* Op Note - Altaf Metz MD - 03/24/2023 9:04 AM EDT Operative Report Patient Name: Tarik Dunham Date of : 1950 Date of Surgery: 03/24/23 DATE OF SURGERY: 03/24/23 PREOPERATIVE DIAGNOSIS: RIGHT Knee Degenerative Arthritis - M17.11 and RIGHT Valgus Deformity - M21.061 POSTOPERATIVE DIAGNOSIS: Same. PROCEDURE PERFORMED: Right Total Knee Arthroplasty, Kinematic Alignment SURGEON: Altaf Metz MD ASSISTANTS: Judit PGY-III and Cristino BUCKNER ANESTHESIA: Spinal, MAC, Nerve Block, and Local INTRAVENOUS FLUIDS: 800 mL ESTIMATED BLOOD LOSS: 100 mL TOURNIQUET TIME: 0 minutes DRAIN: None COMPLICATIONS: Patient tolerated the procedure well without anesthetic or surgical/operative complications. SPECIMENS: None COMPONENTS: DePuy Attune CR femoral component size 6, tibial component size 5, 5 MS tibial polyethylene insert, 32mm patellar component. INTRAOPERATIVE FINDINGS: Intraoperative findings confirmed the radiographic findings of degenerative arthritis characterized by loss of articular cartilage, subchondral sclerosis and marginal osteophytes in all three compartments of the knee. TISSUE REMOVED OR ALTERED: Periarticular bone removed via standard resection. COMORBIDITIES: No date: Arthritis No date: Cancer (CMS/HCC) (HCC) Comment: right breast No date: Fractures Comment: pelvis, right shoulder, right wrist No date: Hyperlipidemia No date: Sleep apnea Comment: uses cpap OPERATIVE NOTE ADDENDUM: None HISTORY: The patient has progressive and debilitating knee pain secondary to end-stage osteoarthritis. The patient has clinical and radiographic evidence of end-stage degenerative joint disease of the knee and has failed nonoperative management. The patient was deemed appropriate for a total knee arthroplasty. Risks, benefits and alternatives to surgical treatment were discussed in detail with the patient and they wish to proceed with the total knee replacement. The patient was seen and thoroughly evaluated by a perioperative medical parasitologist preoperatively and was optimized for surgical intervention. SURGICAL PROCEDURE: The patient was identified in the preoperative holding area and the correct knee was identified and marked. The patient was then brought to the operating room where a satisfactorylevel of anesthesia was obtained by the anesthesia service. Pre-scrub of the operative extremity was completed with alcohol solution. IV antibiotics and tranexamic acid were administered. The leg wasprepped with Chloroprep and draped in standard sterile fashion. A surgical time out was called, identifying the correct patient, correct extremity, correct procedure, and that IV antibiotics had beenappropriately given, in addition to identifying that the surgical implants, radiographs, and vendors were available in the operating room. An anterior longitudinal incision was made. Sharp dissection was carried down through the skin and subcutaneous tissue and a median parapatellar arthrotomy was performed, leaving a cuff of tendon adjacent to the VMO to facilitate closure. The anteromedial retinaculum was elevated off the medial tibia and subperiosteal dissection was performed underneath the deep medial collateral ligament. The superficial MCL was protected with a 45-degree bent Hohmann retractor. The retropatellar fat pad was excised to facilitate exposure. The lateral patellofemoral ligament was released and the patella was subluxated into the lateral gutter of the knee. The knee was then brought into flexion and a right angle retractor was placed lateral to the tibia to protect the lateral sided structures and the patella. The anterior cruciate ligament was divided. Any remaining cartilage on the affected compartment was removed with a curette and/or oscillating saw. The other compartment was intact. We then obtained access to the femoral canal with the stepped drill. An intramedullary khushi was placed. The appropriate valgus angle was replicated accounting for cartilage loss with a 2mm spacer, visualizing the paddles were flush with distal femur. The appropriate resection depth was set based on i mplant thickness. The distal femoral cut was made with an oscillating saw while the medial and lateral collateral ligaments were protected with retractors. The cuts were verified with a caliper to hedrick appropriate resection. The anteroposterior femoral sizing guide was then inserted onto the distal femur with the feet along the posterior femoral condyles and the sizing boom impacting the anterior femoral surface. The femoral component that would best reproduce the patient's anteroposterior anatomical dimensions without notching was determined, the rotation dialed in appropriately by visualizing Denton's line. Alignment holes drilled. The femoral four-in-one block was then placed onto the distal femur, assessed to ensure an adequate mediolateral dimension, and secured with threaded pins. A comma guide was used to confirm adequate anterior clearance to avoid femoral notching. With themedial and lateral collateral ligaments protected with retractors, the femoral finishing cuts were made in the following order with an oscillating saw: anterior, posterior condyles, anterior chamfers, posterior chamfers. The finishing guide was removed and all bony fragments were removed carefully.The notch cut was performed according to protocol. Attention was then turned to the tibia. A double-prong PCL retractor was placed posterior to the tibia, retracting the tibia anteriorly. A medial 45 degree bent Hohmann and a 90 degree bent lateral retractor was maintained to protect the collateral ligaments. Medial and lateral meniscal remnants were excised with Bovie electrocautery. The extramedullary tibial cutting guide was then aligned with the long axis of the tibia and the cutting guide pegged perpendicular to the mechanical axis. The guide was set to a depth to take the appropriate resection off the medial and lateral surfaces based on preoperative templating and intra-operative landmarks. The cut was approximated by referencing the intact cartilage medial and lateral to the tibial eminence, attempting to cut perpendicular at a right angle formed by bisecting the two sides. Guide was pinned. An oscillating saw was used to cut the medial and lateral articular surfaces.An osteotome was used to carefully elevate the articular surface and then removed from the soft tissues with a bovie electrocautery. The trial tibial baseplate was set onto the cut surface, felt to be the appropriate size and the alignment checked with the alignment khushi. The alignment khushi was used to verify slope was appropriate and that varus/valgus alignment was appropriate given the patient's anatomy and pre- operative deformity. Residual marginal medial tibial osteophytes were resected to avoid tenting of the medial collateral ligament. Lamina spreaders were used to expose the posterior aspect of the knee. Residual posterior femoral condylar osteophytes were resected with a curved osteotome and removed carefully with a pituitary rongeur. The medial and lateral compartments were then assessed for symmetry with gap mold checker blocks, in both flexion and extension, to ensure symmetrical extension gap, and a slight trapezoidal flexion gap. The gaps were able to be fined tuned by re-cutting the tibia if needed in order to ensure a solid extension space. The trial femoral and tibial components were inserted with the articular trial liner insert and the components were observed to fit well. The knee was taken through a full range of motion and found to demonstrate full extension without residual flexion contracture with the trial tibial insert. The PCL was maintained, appropriate flexion gap balancing was appreciated.. Full flexion was obtained without anterior tibial trial liftoffand did not demonstrate any flexion instability. The tibial component was allowed to float and optimize its rotation and anteroposterior translation. Tibiofemoral kinematics was optimized in 90 degrees of flexion and the rotation was then marked with a Bovie and corresponded approximately to the medial portion of the tibial tubercle. Coronal alignment was appropriate and symmetric medial and lateral gap balancing was present with varus and valgus stress at 0 and 30 degrees to 1 mm or less difference. Medial flexion space was tight to about 1- 2mm of laxity with slightly more laxity laterally in flexion accepted/preferred. Attention was then turned to the patella. The knee was kept in full extension, the patella was heldsecurely with two towel clips and was measured with calipers. An oscillating saw was used to cut the articular surface with free hand technique to a depth that restored the pre-resection patellar thickness. Calipers were then used to measure and ensure an adequate residual thickness and confirm a symmetrical cut in all four quadrants. Three peg holes were then drilled using the template guide andthe trial component was inserted. The knee taken through range of motion and patellofemoral tracking was observed to be satisfactory. All trial components except for the tibial trial were removed. The tibial trial was then pegged securely into place in the correct rotation. The tibia was then prepared with the tibial drill guide and keeled punch impactor. All sclerotic surfaces were prepared with small drill holes to facilitate cement interdigitation. All bony surfaces were cleaned thoroughly with Pulsavac lavage and dried, and then further prepared with compressed sterile carbon dioxide to enhance cement fixation. The actual implants were brought onto the surgical field and assembled. Simplex low viscosity cement with 750mg of cefuroxime per batch was prepared and the components were securely cemented with pressurization. The cement was allowedto cure with the knee held in extension and visual confirmation of secure component fixation was obtained in all components. While the knee was in extension and the cement drying, a aaliyah- articular solution was injected into the aaliyah-articular tissues including the retinaculum, synovium, quadriceps tendon and VMO, taking care to avoid any neurovascular structures. Upon drying, all extraneous cement was removed from the implant edges, the trial insert was removed and cement removed from all aspects of the knee, including the posterior condyles. The knee was vigorously irrigated with Pulsavac lavage to remove any cement particles and the final polyethylene tibial component was inserted and impacted into a locked position. The knee demonstrated satisfactory coronal alignment, soft tissue balancing, and patellofemoral tracking. Hemostasis was assured to be obtained prior to closure. Attention was then turned to closure. Dilute betadine solution was used to soak in the knee for 3 minutes. Three liters of pulsavac lavage was then used to irrigate out the knee. The medial arthrotomy was closed in full knee flexion with a #1 Vicryl suture for the high tension areas superior to andat the level of the equator of the patella, followed by running #1 Stratafix barbed monofilament suture to close the entire arthrotomy. No deep fatty tissue closure was necessary. The dermal layer was closed with interrupted 2-0 Vicryl sutures and the skin was closed with a running 3-0 monocryl subcuticular closure. Dermabond was used with Prineo. A sterile OpSite dressing was placed, Carmine wrap, and cryotherapy was applied. All sponge and needle counts were correct at the end of the surgery and I was present during all critical aspects of the surgical procedure. The patient was transferred to the recovery room. [facility] [employer] [id number] Note* Perioperative Nursing Note - Anel Amaya RN - 03/24/2023 6:32 AM EDT Patient educated on importance of coughing/ deep breathing after surgery to reduce risk of pneumonia. Patient educated on importance of early mobility to reduce the risk of blood clots. Falls prevention information reviewed with patient. Post-operative pain control and ways to prevent constipation discussed with patient. [id number] Narrative* Nguyễn Gregg PA-C - 03/23/2023 8:04 AM EDT Images from the original note were not included. [facility] OR [address] [facility] [place] [place] [address] Dept: [phone] Discharge Summary Patient Name: Tarik Dunham Date of : 1950 Admit date: 03/24/2023 Discharge date and time: 03/25/2023 11:30 AM Admitting Physician: Altaf Metz MD Admission Diagnoses: Right Knee Arthritis Discharge Diagnoses: Same as above Operative Procedures: Right Total Knee Arthroplasty Indication for Admission: The patient has a history of the above diagnosis that has become progressively worse and the patient has elected to proceed with the above procedure. Hospital Course: The patient was admitted to the hospital on the day of surgery and underwent the above procedure. Post-operatively, the patient was transferred to the orthopaedic floor. They received prophylactic intravenous antibiotics. DVT prophylaxis included SCDs, early ambulation, and Lovenoxwas started the morning of POD#1 of surgery . The patient was able to tolerate a regular diet and their pain was reasonably well controlled. The patient progressed well throughout the hospitalizationand was deemed stable for discharge on above listed date. Disposition: Stable Discharge Medications: Medication List START taking these medications Arthritis Pain Relief 650 MG ER tablet Generic drug: acetaminophen Take 1 tablet (650 mg) by mouth every 8 hours as needed for mild pain (1-3) or moderate pain (4-6) (take as needed for pain). Do not crush, chew, or split. Aspirin Low Dose 81 MG EC tablet Generic drug: aspirin Take 1 tablet (81 mg) by mouth 2 times daily for 15 days. Take 2 times a day for 15 days. This is for blood clot prevention. Begin this script AFTER you finish your lovenox injections. cefadroxil 500 MG capsule Commonly known as: Duricef Take 1 capsule (500 mg) by mouth 2 times daily for 7 days. Take this entire prescription. docusate sodium 100 MG capsule Commonly known as: Colace Take 1 capsule (100 mg) by mouth 2 times daily as needed for constipation. enoxaparin 40 MG/0.4ML solution prefilled syringe Commonly known as: Lovenox Inject 0.4 mL (40 mg) under the skin daily for 15 days. Inject into skin once a day for 15 days. After this script begin your Aspirin script for another 15 days. ondansetron 4 MG tablet Commonly known as: Zofran Take 1 tablet (4 mg) by mouth every 8 hours as needed for nausea and/or vomiting. May take 2 tablets if needed. * oxyCODONE 5 MG immediate release tablet Commonly known as: Roxicodone Take 1 tablet (5 mg) by mouth every 6 hours as needed for severe pain (7-10) or moderate pain (4-6)for up to 7 days. Continue to wean off as pain becomes more tolerable. * oxyCODONE 5 MG immediate release tablet Commonly known as: Roxicodone Take 1 tablet (5 mg) by mouth every 6 hours as needed for severe pain (7-10) or moderate pain (4-6)for up to 7 days. Take every 6 hours as needed for pain, continue to wean off as pain becomes more tolerable. Do not start before April 01, 2023. Start taking on: April 01, 2023 * traMADol 50 MG tablet Commonly known as: Ultram Take 1 tablet (50 mg) by mouth every 6 hours as needed for severe pain (7-10) or moderate pain (4-6) for up to 7 days. * traMADol 50 MG tablet Commonly known as: Ultram Take 1 tablet (50 mg) by mouth every 6 hours as needed for severe pain (7-10) or moderate pain (4-6) for up to 7 days. Take as needed every 6 hours for pain. Wean off as pain becomes more tolerable. Do not start before April 01, 2023. Start taking on: April 01, 2023 * This list has 4 medication(s) that are the same as other medications prescribed for you. Read thedirections carefully, and ask your doctor or other care provider to review them with you. CONTINUE taking these medications calcium carbonate 1250 (500 Ca) MG tablet Commonly known as: Os-Adi celecoxib 200 MG capsule Commonly known as: CeleBREX Notes to patient: Ok to take today cholecalciferol 50 MCG (2000 UT) capsule Commonly known as: Vitamin D-3 gabapentin 300 MG capsule Commonly known as: Neurontin magnesium (chelated) 100 MG tablet ofloxacin 0.3 % ophthalmic solution Commonly known as: Ocuflox omeprazole [address] capsule Commonly known as: PriLOSEC Notes to patient: Take today Where to Get Your Medications These medications were sent to [facility] [address] [place] [id number] Hours: Thursday to Thursday 10 am to 6 pm Arthritis Pain Relief 650 MG ER tablet Aspirin Low Dose 81 MG EC tablet cefadroxil 500 MG capsule docusate sodium 100 MG capsule enoxaparin 40 MG/0.4ML solution prefilled syringe ondansetron 4 MG tablet oxyCODONE 5 MG immediate release tablet traMADol 50 MG tablet You can get these medications from any pharmacy Bring a paper prescription for each of these medications oxyCODONE 5 MG immediate release tablet traMADol 50 MG tablet Patient Instructions: The patient will notify me for any increased bleeding, drainage, or progressively worsening pain, or other concerning symptoms. They have been instructed to report to the emergency room immediately for any chest pain or shortness of breath. Activity Precautions: WBAT on operative extremity/extremities . Work on obtaining range of motion as discussed in the discharge instructions. DVT prophylaxis: Lovenox 40mg daily x 15 days followed by Aspirin 325mg BID x 15 days Wound Care: Keep a dry dressing on for 7-10 days, if no drainage ok to keep incision open to air. If there is drainage call the office Follow-up in 4 weeks post-op. Signed: Nguyễn Gregg PA-C 03/25/2023 2:54 PM documented in this [facility]10-09-2023 Hospital Discharge instructions* Discharge Instructions* Nguyễn Gregg PA-C - 03/23/2023 8:04 AM EDT Images from the original note were not included. [facility] MAIN OR [address] [place] [id number] Dept: [phone] Altaf Metz Adult Hip and Knee Reconstruction [phone] Total/Partial Knee Discharge Instruction Physical Therapy Physical Therapy should be arranged for you prior to your discharge. Therapy should begin 1 or 2 days after surgery and continue 3 times a week for a month. Do the exercises at home on the days you do not see a therapist. Dressing Your wound will be covered by a dressing after surgery. It should usually be removed after 10 days.You can shower as long as there is no drainage from the wound. After the dressing is removed it is not recommended to apply any cream, ointment or lotion to the wound unless specifc instructions are given by your surgeon. Caring for your Wound - DERMABOND PRINEO DRESSING DERMABOND PRINEO System is the combination of a mesh and a liquid adhesive that allows the incisionor wound to be held together during the healing process. DERMABOND PRINEO System should remain in place until your healthcare professional has determined that adequate healing has occurred, which is usually anywhere between 7-14 days. In most cases, DERMABOND PRINEO System is easily removed with little or no discomfort. In the event that you notice that DERMABOND PRINEO System is beginning to loosen or may be coming o, contact your healthcare professional. The following information is provided to help you understand how to care for your incision. You should always follow the instructions of your healthcare provider Things to know Bathing or showering If directed by your healthcare professional, you may occasionally and briefly wet your incision or wound that was treated with DERMABOND PRINEO System in the shower or bath. Do not soak or scrub yourincision or wound. Do not swim or soak your incision or wound in water. After showering or bathing,gently blot your incision or wound dry with a soft towel. If a dry protective dressing is being used over DERMABOND PRINEO System, it should be replaced with a fresh, dry protective dressing after showering or bathing as directed by your health care practitioner. Care should also be taken so that any tape that may be part of the dry protective dressing does not come into contact with DERMABOND PRINEO System because when the tape is removed, it may also remove DERMABOND PRINEO System. Wound healing If you experience any redness, swelling, discomfort, warmth or pus, contact your healthcare professional and he or she will determine how your incision or wound is healing and take the necessary steps to address any issues. Exercise Do not engage in strenuous exercise that may cause additional stress on your incision or wound. Follow your healthcare professional s guidance about when you can return to your normal activities. Removing DERMABOND PRINEO System Your healthcare professional will determine when the healing process of your incision or wound has been completed and DERMABOND PRINEO System is ready to be removed, which is usually between 7 to 14 days. You will have an outer bandage that is placed over the prineo mesh. This bandage may come off 7-10 days after surgery. You may shower with this bandage on, but do not bathe or submerge the incision until cleared by provider at initial pos-op visit. After this bandage is removed, the prineo mesh will gradually fall off on its own. If there are parts of the mesh that are peeling off on their own, you ay cut these parts with scissors, but do not peel any mesh off that is not already coming off on its own. This will eventually all fall off with time, or your provider will remove it at your initial post-op visit. You may shower with both the bandage and the prineo mesh, but do not bathe or submerge the incision or rub any lotion, gels or creams over it until cleared by provider at initialpos-op visit. When healing is complete, your healthcare professional will carefully peel off the DERMABOND PRINEOSystem. Prior to removal, do not scratch, rub or pick at the mesh. This may loosen the adhesive and mesh before the skin is healed. In the event that you notice that DERMABOND PRINEO System is beginning to loosen and may be coming off or comes off the skin wound, contact your healthcare professional Ointments or liquids Topical ointments, liquids or any other product (other than dry bandages) should not be applied to the incision while DERMABOND PRINEO System is in place. These may loosen DERMABOND PRINEO System from the skin before it has completely healed. Most of the time, your stitches will be under the skin and will dissolve on their own. If you have patricia or external stitches they can be removed 10 days after surgery as long as there is no drainage. If the wound is draining, the dressing should be changed daily. The wound should be dry and without drainage by about 7 days postoperative. If there is persistent drainage from the wound after this time period, you should call our office immediately. If there is worsening redness around the incision, you should also call the office immediately. These may be signs of a superficial or deep woundinfection and you may have to return to the office for an evaluation by one of our staff. Common concerns after knee replacement surgery include swelling and bruising. These can be quite signifcant in nature and can appear anywhere from the thigh to the toes. These are typically worse at night which can contribute to trouble sleeping comfortably for more than one to two hours at a time. Activity You will be using an assistive device (walker, crutches, or cane). Your physical therapist will help you with this. Most patients are able to get in and out of bed, use the rest room, and go up and down stairs when they go home. We d like you to get up and walk every hour after surgery. For the first 1-2 weeks you will be walking with a walker or two crutches. After that, you can start using a cane. Bathing Your dressing is waterproof. You may take a shower but not a bath. Precautions It is very common to have swelling and bruising in the thigh, lower leg and foot after surgery. Elevating your leg, doing ankle pump exercises, and using ice packs will help. Call us if the swelling does not subside overnight. Call for a temperature over 101. Take the pain medications as needed for pain. Pain pills can cause constipation. Use over the counter stool softeners like Colace to avoid constipation. If Colace is not effective use a gentle over the counter laxative such as Miralx Please refer to your medication sheet for more information regarding any prescriptions you have been given to take after surgery. Follow up office visit The Doctor would like see you in 4 weeks. If the followup appointment is not already made the office will call within 2 weeks. Please avoid any other surgery, procedure or dental procedure until cleared by Dr. Metz Common Questions About Knee Replacement Question: Why does my knee click? Answer: knee prosthesis is made of hard metal and plastic. Lorraine will create a slight separation of the components. When you tighten your muscles or swing your leg, the pieces come in contact and may make a clicking sound. This is normal. It should not cause pain and does not mean that something is loose or wrong. Question: Why does the skin feel funny around my incision? Answer: The nerves in the skin cross the front of the knee in an inside-out direction. When an incision is made down the front of the knee, these tiny nerves are divided and the skin on the outside will feel fuzzy or numb. This sensation will lessen with time and is normal for all patients with knee replacement surgery. Question: Why is my leg discolored? Answer: You may develop some discoloration (like a bruise) in the leg. This discoloration, which may extend to the hip or ankle, will slowly disappear. Question: When can I get my knee wet? Answer: You can take a shower when your wound is dry. If you have a plastic dressing, it is waterproof. You may wash around the incision but do not scrub the incision. Water does not hinder the healing, but a strong soap could irritate the skin. Be sure to gently pat the area dry. Question: What about cocoa butter and vitamin E oil? Answer: Do not use either of these until after your four week postoperative visit. Ask for clearance to use during that visit. Question: A stitch is sticking out. What do I do? Answer: We often suture the skin from underneath to reduce scarring. The knot at the end of the stitch sometimes will protrude from the skin. Redness and a small amount of drainage may appear. Cleanse the skin with peroxide. Please notify your surgeon s of ce. Question: When can I drive my car? Answer: Usually after 4 weeks. A patient s decision to drive sooner is a personal decision related to their mobility and pain control. You cannot drive while you are taking narcotic pain medicine such as [place], Percocet, Hydrocodone, Oxycodone. Question: How long will I have pain? Answer: The surgical pain tends to resolve in the first week or two. You may continue to have some soreness, stiffness and swelling anywhere from six weeks to three months. This should disappear gradually with exercise and increased activity. If you develop pain after exercising with weights or walking without a walker or crutches, you may be overworking the knee. The following should help: usingthe walker or crutches, decreasing the amount of weight used during exercises, and periodically elevating your leg with ice on it. If the pain does not resolve in a day or two, you should contact your surgeon. * Discharge Instr - SHIMON* Beti Murillo RN - 03/25/2023 11:30 AM EDT Continuity of Care Form Patient Name: Tarik Dunham : 1950 Admit date: 03/24/2023 Discharge date: Code Status Order: Full Code Advance Directives: N Admitting Physician: Altaf Metz MD PCP: Garo Steele Discharging Nurse: Discharging Hospital Unit/Room#: B1-168/B1-168 A Discharging Unit Phone Number: Emergency Contact: Extended Emergency Contact Information Primary Emergency Contact: Uvaldo Dunham [address]: [address] [place], [place] [id number] [place] [address] Mobile Relation: Spouse Secondary Emergency Contact: Maria Dolores Heredia Address: [address] [place] [address] Mobile Relation: Daughter Past Surgical History: Past Surgical History: Procedure Laterality Date BREAST BIOPSY BREAST RECONSTRUCTION Bilateral CARPAL TUNNEL RELEASE CATARACT EXTRACTION COLONOSCOPY DILATION AND CURETTAGE OF UTERUS FOOT SURGERY Right pin placed in big toe HYSTERECTOMY MASTECTOMY Bilateral TONSILLECTOMY TOTAL KNEE ARTHROPLASTY Right 03/24/2023 Immunization History: Immunization History Administered Date(s) Administered Moderna SARS-CoV-2 Vaccination 06/18/2021 Active Problems: Medical Problems Problem List * (Principal) Primary osteoarthritis of right knee Delayed emergence from anesthesia BRUNO (obstructive sleep apnea) Isolation/Infection: No active isolations No active infections Nurse Assessment: Last Vital Signs: BP (!) 103/43 Pulse 64 Temp 37.1 C (98.7 F) (Temporal) Resp 16 Ht 1.676 m(5' 6") Wt 63.5 kg (140 lb) SpO2 95% BMI 22.60 kg/m Last documented pain score (0-10 scale): Last Weight: Wt Readings from Last 1 Encounters: 03/24/23 63.5 kg (140 lb) Mental Status: {SHIMON Patient Mental Status:05778} IV Access: {SHIMON IV Access:19286} Nursing Mobility/ADLs: Walking {TARYN ADL:84430::"Independent"} Transfer {TARYN ADL:::"Independent"} Bathing {TARYN ADL:::"Independent"} Dressing {TARYN ADL:::"Independent"} Toileting {TARYN ADL:::"Independent"} Feeding {TARYN ADL:::"Independent"} Concrete Precast [place] {TARYN ADL:::"Independent"} Med Delivery {yes/no:01950} Wound Care Documentation and Therapy: Wound/Incision 03/24/23 Incision Knee Anterior;Right (Active) Site Assessment Unable to assess 03/25/23 0400 Odor None 03/25/23 0400 Drainage Amount None 03/25/23819 Treatments Ice applied 03/25/23819 Primary Dressing Sterile dressing;Transparent film 03/25/23819 Dressing Status Clean, dry & intact 03/25/23819 Number of days: 1 Elimination: Continence: Bowel: {yes/no:09863} Bladder: {yes/no:15716} Urinary Catheter: {SHIMON Urinary Catheter:01497} Colostomy/Ileostomy/Ileal Conduit: {YES / NO:} Date of Last BM: No intake or output data in the 24 hours ending 03/25/23 1140 I/O last 3 completed shifts: In: 424.2 (6.7 mL/kg) [I.V.:301.2 (4.7 mL/kg); IV Piggyback:123] Out: 100 (1.6 mL/kg) [Blood:100] Weight: 63.5 kg Safety Concerns: {SHIMON Safety Concerns:36284} Impairments/Disabilities: {SHIMON Impairments/Disabilities:86450} Nutrition Therapy: Current Nutrition Therapy: {SHIMON Diet List:46244} Routes of Feeding: {routes of feedin} Liquids: {liquid consistency:94552} Daily Fluid Restriction: {daily fluid restriction:18954} Last Modified Barium Swallow with Video (Video Swallowing Test): {done not done:94752} Treatments at the Time of Hospital Discharge: Respiratory Treatments: Oxygen Therapy: {Therapy; copd oxygen:69442} Ventilator: {SHIMON Ventilator:88197} Rehab Therapies: {GEN THERAPY DISCIPLINE SCAL:4814606} Weight Bearing Status/Restrictions: {POD WEIGHT BEARIN} Other Medical Equipment (for information only, NOT a DME order): {Assistive Devices DME:41380} Other Treatments: Patient's personal belongings (please select all that are sent with patient): {SHIMON Patient Belongings:84089} RN SIGNATURE: {E-signature:79759} CASE MANAGEMENT/SOCIAL WORK SECTION Inpatient Status Date: Readmission Risk Assessment Score: @READMISSIONRISKDETAILS@ Discharging to Facility/ Agency Name: [facility] Address: [address] [place] [address] Dialysis Facility (if applicable) Name: Address: Dialysis Schedule: Phone: Fax: Income Tax Investigator/Skills Auditor signature: {E-signature:05249} PHYSICIAN SECTION Prognosis: {Rehab Prognosis:72573} Condition at Discharge: {Patient Condition:81343} Rehab Potential (if transferring to Rehab): {Rehab Prognosis:81497} Recommended Labs or Other Treatments After Discharge: Physician Certification: I certify the above information and transfer of Tarik Dunham is necessary for the continuing treatment of the diagnosis listed and that she requires {SHIMON Level of Care:66785}for {greater less than:22437} 30 days. Update Admission H&P: {SHIMON Changes in H&P:70875} PHYSICIAN SIGNATURE: {E-signature:88597} documented in this [facility]09-26-2023 History and physical note* JESSICA Lincoln - 03/10/2023 9:30 AM EDT Comprehensive PreSurgical History and Physical ? Name: Tarik Dunham : 1950 (Age-73 y.o.) Date of Service: Pt seen/examined on 03/10/2023 Procedure Information Date/Time: 03/24/23929 Procedure: RIGHT TOTAL KNEE ARTHROPLASTY (Right: Knee) - 60 MIN Location: [address] Operating Room Surgeons: Altaf Metz MD Chief Complaint: Knee pain ASSESSMENT/PLAN: Patient is considered low/intermediate risk for this intermediate risk procedure/surgery noted above () with no reducible risk factors. Based on the above evaluation, the benefits of the planned procedure likely exceed the risks. The patient is medically optimized to proceed with the planned procedure without any further cardiopulmonary testing. 1) Right knee osteoarthritis Managed per surgery 2) BRUNO Compliant with CPAP Instructed pt to bring machine DOS 3) HLD Currently not on meds 4) Hx breast CA s/p mastectomy 5) GERD Stable. Currently taking PPI Avoidance of triggers encouraged 6) Neuropathy Currently taking gabapentin Visit Type: Pre-Admission Testing Visit Labs Ordered: YES - PER PAT PROTOCOL Sleep Referral Ordered: NO - ALREADY DIAGNOSED WITH BRUNO AND COMPLIANT WITH CPAP The patient meets the criteria for [facility] total joint replacement protocol. Total time spent (which include face to face and non face to face encounters) : 45 minutes Toxic drug monitoring/narrow therapeutic index drug monitoring : # Drug name : n/a # Route administered : n/a # Method of monitoring : n/a PAT Protocol referenced includes: 1. Anesthesia Lab Protocol Orders 2. Perioperative Cardiovascular Risk Assessment 3. Anesthesia Assessment 4. Pain Assessment and Acute Pain Service Consult (if appropriate) 5. Medical Clearance/Consult from Internal Medicine (IMS) 6. Shower/Wash Order (for designated surgeries) 7. BRUNO Screen and Sleep Clinic Referral (if appropriate) History Of Present Illness: 73 y.o. female who presents with chief complaint mentioned above. Per surgeon's note Symptoms began gradually several years ago. She describes the symptoms as achingand burning. The pain is diffusely around the knee. Symptoms improve with rest, medication: Celebrex, Tylenol used and beneficial. The symptoms are exacerbated by stair climbing, getting up from a chair, weight bearing, walking . The knee has given out or felt unstable. The patient can bend and straighten the knee fully and does not have mechanical symptoms (catching, locking). Able to walk 1-2 blocks and is able to use stairs. Overall, the patient feels as if this condition is moderately impacting their quality of life and ability to do activities of daily living. Pt has seen the surgeon and elected for above procedure. Denies Hx of HTN, DM, Asthma/COPD, CAD, CHF, a fib, NV, TIA/CVA, DVT/PE Hx problems with anesthesia? - delayed emergence Dental? - no missing teeth nothing loose or broken no partials or dentures Snore at night? - +bruno using cpap Past Medical History: Past Medical History: No date: Arthritis No date: Cancer (CMS/HCC) (HCC) Comment: right breast No date: Fractures Comment: pelvis, right shoulder, right wrist No date: Hyperlipidemia No date: Sleep apnea Comment: uses cpap Past Surgical History: Past Surgical History: No date: BREAST BIOPSY No date: BREAST RECONSTRUCTION; Bilateral No date: CARPAL TUNNEL RELEASE No date: CATARACT EXTRACTION No date: COLONOSCOPY No date: DILATION AND CURETTAGE OF UTERUS No date: FOOT SURGERY; Right Comment: pin placed in big toe No date: HYSTERECTOMY No date: MASTECTOMY; Bilateral No date: TONSILLECTOMY Medications Prior to Admission: Current Outpatient Medications: celecoxib (CeleBREX) 200 MG capsule, TAKE 1 CAPSULE BY MOUTH EVERY DAY FOR 90 DAYS, Disp: , Rfl: cholecalciferol (Vitamin D-3) 50 MCG (1999) capsule, Take 2,000 Units by mouth in the morning., Disp: , Rfl: gabapentin (Neurontin) 300 MG capsule, Take 300 mg by mouth 3 times daily., Disp: , Rfl: magnesium, chelated, 100 MG tablet, Take 200 mg by mouth in the morning., Disp: , Rfl: ofloxacin (Ocuflox) 0.3 % ophthalmic solution, INSTILL 1 DROP INTO LEFT EYE FOUR TIMES DAILY X 4 DAYS., Disp: , Rfl: omeprazole (PriLOSEC) [address] capsule, Take 40 mg by mouth every morning (before breakfast). Do not crush or chew., Disp: , Rfl: CHRONIC NARCOTIC USE: No Allergies: Iodinated contrast media If patient has opioid allergy, is it okay to take Acetaminophen: N/A Social History: TOBACCO: reports that she has never smoked. She has never used smokeless tobacco. ETOH: reports current alcohol use. Social History Substance and Sexual Activity Drug Use Never Family History: No family history on file. REVIEW OF SYSTEMS: Review of Systems Constitutional: Negative for chills and fever. Respiratory: Negative for shortness of breath. Cardiovascular: Negative for chest pain. Pertinent positives as noted in the HPI. Physical Exam: Physical Exam Constitutional: General: She is awake. She is not in acute distress. Appearance: Normal appearance. HENT: Head: Normocephalic and atraumatic. Eyes: Extraocular Movements: Extraocular movements intact. Conjunctiva/sclera: Conjunctivae normal. Cardiovascular: Rate and Rhythm: Normal rate and regular rhythm. Heart sounds: Normal heart sounds. Pulmonary: Effort: Pulmonary effort is normal. Breath sounds: Normal breath sounds. Abdominal: Palpations: Abdomen is soft. Musculoskeletal: General: Normal range of motion. Cervical back: Normal range of motion. Skin: General: Skin is warm and dry. Neurological: General: No focal deficit present. Mental Status: She is alert and oriented to person, place, and time. Psychiatric: Mood and Affect: Mood normal. Behavior: Behavior normal. Vitals: Vitals Value Taken Time BP 130/53 03/10/23923 Temp 36.3 C (97.4 F) 03/10/23923 Pulse 65 03/10/23923 Resp 16 03/10/23923 SpO2 99 % 03/10/23923 BP 130/53 Pulse 65 Temp 36.3 C (97.4 F) (Temporal) Resp 16 Ht 1.676 m (5' 6") Wt 64.7 kg (142 lb 9.6 oz) SpO2 99% BMI 23.02 kg/m Labs: Lab Results Component Value Date WBC 5.5 03/10/2023 HGB 12.0 03/10/2023 HCT 35.3 03/10/2023 MCV 87.5 03/10/2023 PLT 311 03/10/2023 Lab Results Component Value Date NA 138 03/10/2023 K 4.4 03/10/2023 CL 104 03/10/2023 CO2 29 03/10/2023 BUN 15 03/10/2023 CREATININE 0.54 03/10/2023 GLUCOSE 100 03/10/2023 CALCIUM 9.3 03/10/2023 PROT 6.8 03/10/2023 ALKPHOS 65 03/10/2023 AST 26 03/10/2023 ALT 20 03/10/2023 EGFR >90.0 03/10/2023 Obed's Simple Cardiac Risk Index: OBED'S SIMPLE CARDIAC RISK SCORE: 0 Interpretation: 0 Points Class I 0.5% 1 Point Class II 1.3% 2 Points Class III 3.6% 3+ Points Class IV 9.1% METS >4 METS (Able to climb a flight of stairs with no chest pain or shortness of breath): Yes goes slow d/t joint pain, no exertional CP or SOB Walk indoors, such as around the house (1.75 METs), Do light work around the house, such as dusting or washing dishes (2.70 METs), Take care of self, that is eating, dressing, bathing, using the toilet (2.75 METs), Do moderate work around the house such as vacuuming, sweeping floors, or carrying in groceries (3.50 METs), Do yardwork, such as raking leaves, weeding,or pushing a power mower (4.50 METs), Climb a flight of stairs or walk up a hill (5.50 METs) PAT Pain Score: Pain Score: 8 Postop Pain Management Plan (Pain consult ordered?): Pain score >6 in PAT - Pain consult recommended, will defer consult to surgical team ? EKG: Done today: Encounter Date: 03/10/23 ECG 12 lead Result Value Heart Rate 64 QRSD Interval 80 QT Interval 396 QTC Interval 409 P [place] 58 QRS [place] 51 T Wave [place] 39 CO Interval 152 Impression SINUS RHYTHM No previous ECG available for comparison ECHO and EF:None on file No components found for: "LVEF", "LVEFMODE" Electronically signed by: JESSICA Lincoln Date: 03/10/2023 at 10:30 AM [id number] History of Present illness Narrative* Maria Dolores Palacios - 02/06/2023 2:30 PM EDT Patient offered a medical substance abuse counselor for sensitive exam. Pt declined [facility] History of Present illness Narrative* Belkys Adame RN - 02/06/2023 1:45 PM EDT Reporting a sharp shooting pain that started 3 weeks ago, occurs with coughing, breathing, movementthat has left her with contact tenderness since. Reports sweating and shaking during the sharp painepisodes. * Pati Melinda Boles, EVI-CYBER ENGINEER - 02/06/2023 1:45 PM EDT PLASTIC AND RECONSTRUCTIVE SURGERY PROGRESS NOTE Patient was seen and evaluated by [facility] and Dr. Hermosillo HPI: Tarik Dunham is a 72 y.o. female H/o bilateral mastectomies with implant-based reconstruction with animation deformity, 201502/11/2022 s/p breast implant exchange and change of planes from submuscular to prepectoral implants([place]) Subjective: Patient presents for annual evaluation. Patient reports severe onset of pain 3 weeks ago while lying in bed. The pain started at the right lateral breast/axillary tail and jolted to her nipple areolacomplex. Pain felt like an electrical shock that took her breath away. The pain was so severe causing her to be diaphoretic and felt she could not move. Her wanted to take her to the emergency department however the pain slowly subsided with a oxycodone pill. She has experienced pain that area since that events but not as severe. The patient gets relief of pain when holding her breast, wearing a supportive bra, or using pillows at night. Review of systems: No fevers/chills. No wound symptoms such as redness, swelling, increasing pain, or drainage. Physical assessment: BP 123/61 (BP Location: Left arm, BP Position: Sitting) Pulse 65 Resp 16 SpO2 100% Smoking Status Never Gen: Well appearing who appears at stated age and is in NAD Bilateral breasts: incision CDI. No fluid collection. No sign of infection. Upper pole hollowing present bilaterally. Pain with Right lateral chest wall palpation. No obvious neuroma or lymphadenopathy appreciated on palpation. Assessment/Plan: Orders Placed This Encounter CT CHEST WITHOUT CONTRAST US BREAST UNILATERAL RIGHT - Stat imaging ordered to r/o acute cause for pain. CT chest and R breast ultrasound both unremarkable, no evidence of acute process or mechanical cause for pain - R lateral chest pain the patient is experiencing is likely nerve pain with multiple tiny neuromas - recommend desensitization massage daily to help calm the nerves - advised patient if she is still experiencing severe nerve pain after desensitization, surgical excision to remove angry nerves may be needed - recommend a very supportive bra during active hours - RTC in [address] Hermosillo to reassess - Please call or MyChart message our clinic with any questions or concerns before your next visit. BLOSSOM Matthews [facility] A total of 30 minutes of [id number] time were spent in this encounter, of which >50% was spentin counseling and/or coordination of surgical planning and care. documented [facility] this [facility] History of Present illness Narrative* Altaf Metz MD - 01/28/2023 8:45 AM EDT Images from the original note were not included. [facility] [address] [place] [address] Dept: [phone] Dept 01/28/2023 Chief Complaint Patient presents with Follow-up discuss/schedule R TKA Subjective: Tarik is a 72 y.o. female who presents for repeat evaluation of the right knee. At the last visit on 11/19/22 we initiated non-operative treatment consisting of... ~ Activity modification ~ NSAID's (prescription provided elsewhere) - The risks and benefits of anti- inflammatory medications were discussed. Anti-inflammatories can have potential renal/cardiac/gastric side effects. ~ Tylenol ~ Physical therapy (home exercise program provided), consider formal PT ~ Patient deciding timing of TKA going forward, will discuss with her family The patient reports the treatment has not provided significant prolonged relief. Review of Systems Constitutional: Negative for activity change. HENT: Negative for congestion. Cardiovascular: Negative for leg swelling. Musculoskeletal: Positive for arthralgias, gait problem and joint swelling. Skin: Negative for wound. Neurological: Negative for weakness. No past medical history on file. No past surgical history on file. Social History Socioeconomic History Marital status: Spouse name: Not on file Number of children: Not on file Years of education: Not on file Highest education level: Not on file Occupational History Not on file Tobacco Use Smoking status: Never Smokeless tobacco: Never Substance and Sexual Activity Alcohol use: Not on file Drug use: Not on file Sexual activity: Not on file Other Topics Concern Not on file Social History Narrative Not on file Social Determinants of Health Financial Resource Strain: Not on file Food Insecurity: Not on file Transportation Needs: Not on file Physical Activity: Not on file Stress: Not on file Social Connections: Not on file Intimate Partner Violence: Not on file Housing Stability: Not on file No family history on file. Allergies Allergen Reactions Iodinated Contrast Media Itching Objective: Ht 5' 5.5" (1.664 m) Wt 140 lb (63.5 kg) BMI 22.94 kg/m Pt is a WD/WN female in no acute distress. She appears her stated age. Mood and affect are normal. She is A&O x 3. Gait: antalgic. RIGHT KNEE: Inspection shows skin is warm, dry and intact. There are no obvious scars or previous incisions.. Alignment is valgus . ROM shows extension is 3-4, flexion 120. The knee is stable to varus/valgus stress (<6 degrees) and is correctable. Additional findings include medial joint line tenderness and lateral joint line tenderness, no effusion. Anterior, posterior drawer negative. +PF/DF/EHL. SILT distally. DP/PT palpable. Straight leg raise negative for inciting radicular symptoms. LEFT KNEE: Inspection shows skin is warm, dry and intact. There are no obvious scars or previous incisions.. Alignment is neutral. ROM shows extension is 0, flexion 120. The knee is stable to varus/valgus stress (<6 degrees) and is correctable. Additional findings include , no effusion, no erythema, and no tenderness. Anterior, posterior drawer negative. +PF/DF/EHL. SILT distally. DP/PT palpable. Straight leg raise negativefor inciting radicular symptoms. Bilateral hip range of motion is not painful. Lab Results: RELEVANT LABS: none Radiology Findings: 01/28/2023 images obtained by outside radiology department independently reviewed by myself today in office. XRAYS: Indication: Right knee pain. Exam Ordered: Radiographs of the knee include a standing anteroposterior view, a standing posteroanterior view, a lateral view in flexion, and a sunrise view. Details of Examination: Exam shows evidence of significant joint space narrowing (bone on bone) particularly in the lateral compartment, significant peripheral osteophyte formation, and subchondral sclerosis; all consistent with end-stage degenerative arthritis of the knee. No other significant findings are noted. Impression: Degenerative Arthritis, right knee. Assessment 1. Primary osteoarthritis of right knee Plan Right Total Knee Arthroplasty. This patient has end-stage degenerative joint disease clinically and radiographically. The affectedknee is severely impacting the patient's quality of life and causing them to decrease their daily activities. They have tried non-operative treatment including analgesics, an exercise program, and activity modification, but the symptoms have persisted for beyond three months. The patient meets all of the criteria for a total knee arthroplasty. The risks and benefits of knee arthroplasty have been discussed with the patient. Benefits include potential relief of pain and the associated improvement in quality of life. Improvements in knee range of motion may or may not be attained and is less predictable. Risks include, but are not limited to, infections (including severe sequelae), potential component failure and implant loosening, fracture, DVT, pulmonary embolus, damage to nerves/muscles/tendons/ligaments, poor range of motion and arthrofibrosis, osteolysis and bearing wear, persistent pain, wound healing complications, bleeding and need for possible transfusions, multi-system organ injury/failure, and ultimately . The patient comprehends and understands the risks clearly and wishes to proceed with the indicated total kneearthroplasty. We will need a 4 week post-op check with new X-rays. Pre-operative planning will include the following: A pre-surgical evaluation by an distributor operator will be arranged. Pre-operative laboratory tests as well as EKG which will be checked by the distributor operator. Will make arrangements with the operating room for proper time and staffing. Arrangements with the implant company to make sure the proper implants are made available. Social service arrangements for the patient, to include physical therapy at home versus in the outpatient setting, depending on patient preference. The chance for residential facility discharge is also plausible pending post-op therapy. Patient Discussion, Scripts, & Risk Assessment Checklist: [x] Detailed Consent Performed [] Cardiology consult prior to surgery (i.e. CHF, stents) [x] Specialist managing patient (i.e. endocrine, nephrology, oncology) Consult cardiology prior to surgery [] PCP consult prior to surgery [x] PT Discussion - Patient prefers: Home PT [] Outpatient PT script provided - Patient to schedule well in advance for 2-3 days after surgery [x] Aaliyah-articular Injection Form Submitted - No significant allergy or intolerance to NSAID's - All Total Joint Procedures [] Dental work to be done - Patient to call back after completed/cleared before scheduling [x] Previous Blood Clot: Unprovoked, when very young [] Disease Modifying Drugs for *Autoimmune Disease N/A [x] Risk Assessment... No High Risk Factors [x] High Risk Protocol Duricef 500mg BID x 7 days BOOKING INSTRUCTIONS Procedure: Right Total Knee Arthroplasty - 19401 Time: 1 hour(s) Diagnosis: 1. Primary osteoarthritis of right knee Blood: Not anticipated to be given Important Labs to Obtain: Routine PAT protocol Anesthesia: Spinal and ambIT Adductor Pump DVT Prophylaxis: Lovenox 40mg daily 15 days, then ASA 15 days Return to Office: No Repeat Xrays: No Anticipated Discharge To: Home, 23-HR Stay Implants: DePuy Attune, with patellar resurfacing Equipment: MatchGrade leg hewitt, CarboJet, regular table Other: TXA, No [place], OpSite The patient is not a candidate for same day joint replacement. Electronically signed by Altaf Metz M.D. 01/28/2023 at 8:55 AM. documented in this [facility]07-17-2023 Instructions* Patient Instructions* Garo Steele MD - 12/29/2022 12:46 PM EDT VACCINES DUE: TETANUS BOOSTER. SHINGRIX SERIES. Have you ever planned for future healthcare decisions with a power of machinist helper, living will, or advance directives? Yes. Have you shared those records with your doctor? No Please bring a copy. Fasting blood work. documented in this [facility]07-17-2023 History of Present illness Narrative* Garo Steele MD - 12/29/2022 12:12 PM EDT This note was created using Kingmakerriter. Subjective Tarik Dunham is a 72 year old female. She had progressive right knee pain and was seriously considering knee replacement. She was in the process of deciding where and by whom to have knee surgery. She had seen [facility], [facility], and will see [facility] for opinions. She had been taking more gabapentin due to pain and insomnia. She requested a formal increase of her dose, as the dose from the previous PCP group was 300 mg BID. Review of Systems Constitutional: Negative for fatigue, fever and unexpected weight change. Respiratory: Negative for chest tightness and shortness of breath. Cardiovascular: Negative for chest pain, palpitations and leg swelling. Gastrointestinal: Negative. Musculoskeletal: Positive for arthralgias and gait problem. Psychiatric/Behavioral: Negative. ACTIVE PROBLEM LIST Esophageal Reflux H/O Bilateral Mastectomy Neuropathic Pain, Leg, Right Osteopenia of Multiple Sites Other Low Back Pain Sleep Apnea Mild Memory Disturbance History of Breast Cancer Primary Osteoarthritis of Right Knee Multiple Thyroid Nodules Social History Tobacco Use Smoking status: Never Smokeless tobacco: Never Substance Use Topics Alcohol use: Yes Alcohol/week: 3.0 standard drinks of alcohol Types: 3 Standard drinks or equivalent per week Comment: 1 glass of wine Drug use: No Current Outpatient Medications Medication Sig gabapentin (NEURONTIN) 100 mg capsule Take 3 capsules by mouth twice daily. celecoxib (CELEBREX) 200 mg capsule Take 1 capsule by mouth once daily as needed (back pain). lactase (LACTAID FAST ACT ORAL) Take by mouth. MAGNESIUM ORAL Take by mouth. ubidecarenone Q-10 (COENZYME Q-10) 10 mg cap Take by mouth twice daily. calcium carbonate-vitamin D (CALCIUM 500 WITH VITAMIN D) 500-125 mg-unit ORAL Tab famotidine (PEPCID) 40 mg tablet Take 1 tablet by mouth daily at bedtime. (Patient not taking: Reported on 12/29/2022) No current facility-administered medications for this visit. Objective BP 106/58 (BP Site: Left Arm, BP Position: Sitting, BP Cuff Size: Large Adult) Pulse 64 Resp 16 Ht 167.6 cm (5' 6") Wt 65.8 kg (145 lb) BMI 23.40 kg/m Physical Exam Constitutional: General: She is not in acute distress. Appearance: She is not ill-appearing. Cardiovascular: Rate and Rhythm: Normal rate and regular rhythm. Pulses: Normal pulses. Heart sounds: No murmur heard. No gallop. Pulmonary: Effort: Pulmonary effort is normal. Breath sounds: Normal breath sounds. Musculoskeletal: Right knee: Swelling present. Decreased range of motion. Tenderness present. Left knee: Normal. Right lower leg: No edema. Left lower leg: No edema. Neurological: General: No focal deficit present. Mental Status: She is alert. Psychiatric: Mood and Affect: Mood normal. Assessment and Plan 1. Medicare annual wellness visit, subsequent - ICD9: V70.0, ICD10: Z00.00 (primary diagnosis) See wellness note. 2. Neuropathic pain, leg, right - ICD9: 355.8, ICD10: M79.2 Dose increased to 300 mg TID. - GABAPENTIN 300 MG CAPSULE 3. Other low back pain - ICD9: 724.2, ICD10: M54.59 See above. - GABAPENTIN 300 MG CAPSULE 4. Primary osteoarthritis of right knee - ICD9: 715.16, ICD10: M17.11 - CELECOXIB 200 MG CAPSULE 5. Hyperlipidemia, unspecified hyperlipidemia type - ICD9: 272.4, ICD10: E78.5 - Control undetermined, due for labs - Counseled on healthy diet and regular exercise 6. History of breast cancer - ICD9: V10.3, ICD10: Z85.3 Seeing specialist at [facility]. 7. Multiple thyroid nodules - ICD9: 241.1, ICD10: E04.[address] Arredondo. Garo Steele MD MEDICARE WELLNESS Tarik Dunham is a 72 year old female here for a Medicare Subsequent Annual Wellness Visit Health Risk Assessment In general, health is: Very good Concerns with balance:Several days Concerns with teeth or dentures:Not at all Concerns with sexual function:Not at all [place] anxious, stressed, angry, irritable, lonely, isolated, or had thoughts of hurting themself: Not at all Has little interest or pleasure in doing things: Not at all Bothered by feeling down, depressed, or hopeless: Not at all Needs help with grocery shopping, cooking, housework, bathing, grooming, dressing, eating, sitting or standing, walking, using the toilet, handling finances, taking medications, using the telephone, or driving: No Following safety precautions in the home environment and vehicle: removed throw rugs from floors, installed grab bars in the bathroom, handrails in stairwells, having adequate lighting, wearing seatbelt at all times?: Yes Smokes cigarettes, vapes, or chew tobacco: No Eats healthy foods including fruits, vegetables, whole grains, and fiber-rich foods: Several days Number of days per week engages in exercise: 3 days Average alcohol consumption: 2-3 times a week Current Providers Specialists: I have reviewed specialist-related care of the patient in the medical record. Current care team: Patient Care Team: Garo Steele MD as PCP - General (Internal Medicine) Dr. Ranjan Bean for dermatology; Dr. Pamella Bean for ophthalmology, Dr. Abner Nova at [facility] for breast cancer follow up and surgeries; Dr. Mattson for pain management as needed, and Dr. Henri Amaya for local orthopedics; Dr. Altaf Metz, [facility]. Dr. Clay Jean, preventive cardiology. Dr. Haily Jim, general surgery (thyroid). Medical/Family history review Reviewed and updated problem list, medical/surgical/family/social history, medications, and allergies. Opioid use review Patient is not currently using opioids. Depression screening Depression Screening PHQ-2 Score 06/27/2022 0 Depression screening tool completed and reviewed. Based on score and interview, patient is not at risk for depression. Screening tool discussed with patient, and I recommended no further interventionat this time. Cognitive screening Mini Cog Score: 5 Cognitive screening reviewed and no further action needed (score 3-5) Functional Observation Was the patient's timed Up & Go test unsteady or ? 12 seconds? No Advance Care Planning End of Life planning discussed, including patient's advanced directive wishes: Yes. Copy needed. Measurements BP 106/58 Pulse 64 Resp 16 Ht 5' 6" (1.68m) Wt 145 lb (65.8kg) BMI 23.41 kg/(m^2). Visual acuity (required for Welcome to Medicare): follows with optometry/ophthalmology and Right: 20/40 Left: 20/ 70 Both: 20/25 Hearing Evaluation: within normal limits Assessment/Plan - Counseled on healthy diet and regular exercise - Discussed need for and benefit of weight loss. BMI 23.40 kg/(m^2) - Fall avoidance - Vaccines recommended COVID-19, Shingrix at pharmacy, and Tdap at pharmacy - Depression screening documented in this encounter[facility] History of Present illness Narrative* Altaf Metz MD - 11/19/2022 11:00 AM EDT Images from the original note were not included. [facility] [address] [place] [address] Dept: [phone] Dept 11/19/2022 Chief Complaint Patient presents with New Patient Right knee pain Subjective: Tarik is a 72 y.o. female who presents for evaluation of the right knee. Symptoms began gradually several years ago. She describes the symptoms as aching and burning. The pain is diffusely around the knee. Symptoms improve with rest, medication: Celebrex, Tylenol used and beneficial. The symptoms are exacerbated by stair climbing, getting up from a chair, weight bearing, walking . The knee has given out or felt unstable. The patient can bend and straighten the knee fully and does not have mechanical symptoms (catching, locking). Able to walk 1- 2 blocks and is able to use stairs. Overall, thepatient feels as if this condition is moderately impacting their quality of life and ability to do a ctivities of daily living. No associated radicular pain contributing nor any radiating hip pain. Hxof blood clot right leg. No cardiac issues and no hx of diabetes. Previous Surgery: No Non-operative treatment to date has consisted of: NSAIDS: Yes Narcotics: No Therapy: None. Cortisone injections: Yes Viscosupplementation: Yes about a month ago Assistive Devices: None Bracing: No Attempted Weight Loss: No Medications reviewed. Review of Systems Constitutional: Negative for activity change. HENT: Negative for congestion. Cardiovascular: Negative for leg swelling. Musculoskeletal: Positive for arthralgias, gait problem and joint swelling. Skin: Negative for wound. Neurological: Negative for weakness. History reviewed. No pertinent past medical history. History reviewed. No pertinent surgical history. Social History Socioeconomic History Marital status: Spouse name: Not on file Number of children: Not on file Years of education: Not on file Highest education level: Not on file Occupational History Not on file Tobacco Use Smoking status: Never Smokeless tobacco: Never Substance and Sexual Activity Alcohol use: Not on file Drug use: Not on file Sexual activity: Not on file Other Topics Concern Not on file Social History Narrative Not on file Social Determinants of Health Financial Resource Strain: Not on file Food Insecurity: Not on file Transportation Needs: Not on file Physical Activity: Not on file Stress: Not on file Social Connections: Not on file Intimate Partner Violence: Not on file Housing Stability: Not on file No family history on file. Allergies Allergen Reactions Iodinated Contrast Media Itching Objective: Ht 5' 5.5" (1.664 m) Wt 140 lb (63.5 kg) BMI 22.94 kg/m Pt is a WD/WN female in no acute distress. She appears her stated age. Mood and affect are normal. She is A&O x 3. Gait: antalgic. RIGHT KNEE: Inspection shows skin is warm, dry and intact. There are no obvious scars or previous incisions.. Alignment is valgus . ROM shows extension is 3-4, flexion 120. The knee is stable to varus/valgus stress (<6 degrees) and is correctable. Additional findings include medial joint line tenderness and lateral joint line tenderness, no effusion. Anterior, posterior drawer negative. +PF/DF/EHL. SILT distally. DP/PT palpable. Straight leg raise negative for inciting radicular symptoms. LEFT KNEE: Inspection shows skin is warm, dry and intact. There are no obvious scars or previous incisions.. Alignment is neutral. ROM shows extension is 0, flexion 120. The knee is stable to varus/valgus stress (<6 degrees) and is correctable. Additional findings include , no effusion, no erythema, and no tenderness. Anterior, posterior drawer negative. +PF/DF/EHL. SILT distally. DP/PT palpable. Straight leg raise negativefor inciting radicular symptoms. Bilateral hip range of motion is not painful. Lab Results: RELEVANT LABS: N/A Radiology Findings: 10/22/22 images obtained by another provider from a previous date, independentlyreviewed by myself today in office. XRAYS: Indication: Right knee pain. Exam Ordered: Radiographs of the knee include a standing anteroposterior view, a standing posteroanterior view, a lateral view in flexion, and a sunrise view. Details of Examination: Exam shows evidence of significant joint space narrowing (bone on bone) particularly in the lateral compartment, significant peripheral osteophyte formation, and subchondral sclerosis; all consistent with end-stage degenerative arthritis of the knee. No other significant findings are noted. Impression: Degenerative Arthritis, right knee. Assessment 1. Primary osteoarthritis of right knee Plan The above findings were discussed with patient length. We discussed the options of conservative versus possible surgical management of their knee. At this point considering the patient's level of activity, pain, and radiographic findings, I recommended continued conservative management. This treatment will consist of... ~ Activity modification ~ NSAID's (prescription provided elsewhere) - The risks and benefits of anti- inflammatory medications were discussed. Anti-inflammatories can have potential renal/cardiac/gastric side effects. ~ Tylenol ~ Physical therapy (home exercise program provided), consider formal PT ~ Patient deciding timing of TKA going forward, will discuss with her family The risks, benefits, and alternatives to all of the treatment options were thoroughly explained. Patient will call us with any questions or concerns regarding this plan or if any significant issues arise. Follow-up as needed, discussed potential for TKA pending symptoms. Electronically signed by Altaf Metz M.D. 11/19/2022 at 11:49 AM. documented in this [facility] Instructions* Patient Instructions* Garo Steele MD - 06/27/2022 2:30 PM EST REQUEST VACCINE RECORDS. documented in this [facility]01-13-2023 History of Present illness Narrative* Garo Steele MD - 06/27/2022 2:29 PM EST This note was created using NoteWriter. Subjective Patient presents with: Establish Care: Dr. Foreman/ Dr. Salo Sharpeso is a 72 year old female here to establish. She had no concern other than her gabapentin. She had been on 300 mg BID for neuropathic right leg pain from previous PCP. When she ran out, she requested a refill from her disaster recovery specialist Dr. Amaya, who prescribed 100 mg BID. 100 mgBID was not enough to control her symptoms. She sees Dr. Ranjan Bean for dermatology; Dr. Pamella Bean for ophthalmology, Dr. Abner Nova at [facility] for breast cancer follow up and surgeries; Dr. Mattson for pain management as needed, and Dr. Henri Amaya for recent right thumb tendon repair. Review of Systems HENT: Negative. Eyes: Negative. Respiratory: Negative. Cardiovascular: Negative. Gastrointestinal: Negative for abdominal distention, blood in stool, constipation, diarrhea and nausea. Endocrine: Negative. Genitourinary: Negative. Musculoskeletal: Positive for arthralgias, back pain and neck pain. Skin: Negative. Neurological: Negative. Psychiatric/Behavioral: Positive for sleep disturbance. Negative for dysphoric mood. The patient isnot nervous/anxious. PAST MEDICAL HISTORY Diagnosis Date Acute gastritis [...] mention of complication Mild memory disturbance 06/27/2022 Osteopenia of multiple sites 01/27/2006 Other low back pain 09/20/2021 Radiculopathy, cervical region 08/24/2015 Spondylosis of unspecified site without mention of myelopathy PAST SURGICAL HISTORY Procedure Laterality Date BREAST RECONSTRUCTION 01/2022 [facility] CARPAL TUNNEL 2018 right COLONOSCOPY FLX DX [...] BREAST RECONSTRUCTION Bilateral 12/2016 Dr. Gastelum in [place] TONSILLECTOMY PRIMARY/SECONDARY <AGE 10 Tonsillectomy VAG HYST 250 GM/< W/RMVL TUBE&/OVARY 12/22/2013 TVH/BSO WRIST RIGHT OP SURGERY Right 2018 ORIF Wrist fracture FAMILY HISTORY Problem Relation Age of Onset Cancer Mother breast Heart Father [place] Osteoporosis Sister Osteopenia Osteoporosis Sister Osteopenia Hypertension Paternal Grandmother Stroke Paternal Grandmother No Known Problems Daughter No Known Problems Son Social History Tobacco Use Smoking status: Never Smokeless tobacco: Never Substance Use Topics Alcohol use: Yes Alcohol/week: 3.0 standard drinks Types: 3 Standard drinks or equivalent per week Comment: 1 glass of wine Drug use: No ALLERGIES Allergen Reactions Iodinated Contrast * Itching Current Outpatient Medications Medication Sig famotidine (PEPCID) 40 mg tablet Take 1 tablet by mouth daily at bedtime. lactase (LACTAID FAST ACT ORAL) Take by mouth. MAGNESIUM ORAL Take by mouth. ubidecarenone Q-10 (COENZYME Q-10) 10 mg cap Take by mouth twice daily. calcium carbonate-vitamin D (CALCIUM 500 WITH VITAMIN D) 500-125 mg-unit ORAL Tab gabapentin (NEURONTIN) 100 mg capsule Take 3 capsules by mouth twice daily. celecoxib (CELEBREX) 200 mg capsule Take 1 capsule by mouth once daily as needed (back pain). No current facility-administered medications for this visit. Objective BP 112/62 Pulse 66 Temp (!) 35.9 C (96.7 F) Resp 18 Wt 67.6 kg (149 lb) SpO2 96% BMI 23.69 kg/m Physical Exam Constitutional: General: She is not in acute distress. HENT: Head: Normocephalic. Eyes: Extraocular Movements: Extraocular movements intact. Conjunctiva/sclera: Conjunctivae normal. Neck: Vascular: No carotid bruit. Comments: Small dermoid cyst, 4 mm, left submandibular neck. Cardiovascular: Rate and Rhythm: Normal rate and regular rhythm. Heart sounds: No murmur heard. No gallop. Pulmonary: Effort: Pulmonary effort is normal. Breath sounds: Normal breath sounds. Abdominal: Palpations: Abdomen is soft. There is no mass. Tenderness: There is no abdominal tenderness. Musculoskeletal: General: No tenderness. Normal range of motion. Cervical back: Neck supple. Right lower leg: No edema. Left lower leg: No edema. Lymphadenopathy: Cervical: No cervical adenopathy. Neurological: General: No focal deficit present. Mental Status: She is alert and oriented to person, place, and time. Cranial Nerves: No cranial nerve deficit. Motor: No weakness. Gait: Gait normal. Psychiatric: Attention and Perception: Attention normal. Mood and Affect: Mood is depressed. Speech: Speech normal. Behavior: Behavior normal. Thought Content: Thought content normal. Cognition and Memory: She exhibits impaired recent memory. Comments: Difficulty with names of physicians seen. Assessment and Plan : 1. Hyperlipidemia, unspecified hyperlipidemia type - ICD9: 272.4, ICD10: E78.5 (primary diagnosis) - to be determined upon return of lab results - Encouraged following a low carbohydrate, healthy oil intake diet. - LIPID PANEL BASIC 2. Neuropathic pain, leg, right - ICD9: 355.8, ICD10: M79.2 Finish gabapentin 100 mg taken 3 capsules BID. Call for refills of 300 mg capsule BID when nearly finished. 3. Osteopenia of multiple sites - ICD9: 733.90, ICD10: M85.89 - Reviewed the need for Calcium and Vitamin D supplements and weight bearing exercise as tolerated - DXA-AXIAL SKELETON 4. Mild memory disturbance - ICD9: 780.93, ICD10: R41.3 Dr. Foreman prescribed DONEPEZIL which she did not take long. - CBC - COMP METABOLIC PANEL - TSH BLD - VITAMIN B12 BLOOD 5. History of breast cancer - ICD9: V10.3, ICD10: Z85.3 Followed at [facility]. Garo Steele MD documented in this encounterSelect [facility]12-27-2022 Miscellaneous Notes* Telephone Encounter - Rosa Vallejo APRN.CNP - 06/10/2022 2:01 PM EST Noted and agree Rosa Vallejo APRN.CNP * Telephone Encounter - Azucena Barahona RN - 06/10/2022 12:39 PM EST Pts called in and reports his has the flu and is fatigued and sleeping a lot. He reports they slept right through her new patient visit today, but she will call back in to reschedule. Hestates they both took a Covid test at home and it came back negative. He reports they have both hadthe flu for 3 days. Let him know that you should get Tamiflu within the first 48 hours. Let him know to treat the symptoms with OTC medications. Stay hydrated mix Powerade and Gatorade with half water or Pedialyte. To do the BRAT diet and take it slow once feeling better. If become dehydrated and need fluid replacement would need to go to the ER. documented in this encounterSelect [facility]11-28-2022 History of Present illness Narrative* Cielo Mercado - 05/12/2022 2:00 PM EST 05/12/22 walk in to Buy mona valettas mona [id number] sz 14 bk x2 mona [id number] sz [address] Patient [address] Hermosillo wanted her in a push up bra. She scheduled an appointment for her next visit with Dr. Hermosillo In August 2022. She said she wanted 3 more Valettas. Billed as post surgical.SM documented in this [facility]11-28-2022 History of Present illness Narrative* Valentina Manuel PA-C - 05/12/2022 12:00 PM EST Plastic and reconstructive surgery progress note Pt was seen and evaluated by the PAC and Dr. 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 2016 Surgery: Change of planes from submuscular to prepectoral implants DOS 02/11/22 Subjective Presents for previously scheduled f/u. The patient notes upper pole hollowing of bilateral breasts.This can bee seen in clothing, out of clothing and when leaning forward. She notes remaining with pain of bilateral breasts from the lateral region to the midline. The patient notes she has to hold her breast or use pillows at night to offer support and relieve the pain. Review of systems: No fevers/chills. No wound symptoms such as redness, swelling, increasing pain, or drainage. Objective Bilateral breasts: incision CDI. No fluid collection. No sign of infection. Upper pole hollowing present bilaterally. Pain with lateral chest wall palpation. Assessment Bilateral breast upper pole hollowing. Plan - Discussion for increase in implant size. The hollowing is too large for fat grafting at this time. - Up sizing the implant will decrease the upper pole hollowing but will not eliminate it. Case request placed today to hold a surgery date. - Discussion for bilateral chest desensitization massage. BID. - Follow up 3 months A total of 15 minutes of txwb-pb-vrdb time were spent in this encounter, of which >50% was spentin counseling and/or coordination of surgical planning and care. documented in this encounterRiverview [facility] Institute09-12-2022 History of Present illness Narrative* Cielo Mercado - 02/24/2022 1:30 PM EDT NOTE: VERIFY NAME, , ADDRESS FOR CLIENT([facility]) Bra Prosthesis Note Tarik Dunham is being seen today at [facility] by Cielo Mercado for a Breast Issue. Her surgery was on 02/11/2022. Mastectomy: R__ L__ Bilateral _x_ Lumpectomy: R__ L__ Bilateral__ Reconstruction: Yes__x No __ Reconstruction removed Yes_x_ No__ implants replaced Orders Orders: Orders reviewed ___Yes in IHIs _ Dx code __z90.13 Measurements Bra Band: 34 inches Fullest part of Bust: inches Final band size:large Final cup size:large Prosthesis/Form: Size: na Additional Visit information Client Visit: pre/post op__x_ routine/annual___ refit___ reorder/no fitting___. Goals that were discussed with patient: Comfort, support and symmetry. Reason for replacement of bras: Post surgical Reason for replacement of prosthesis:Post surgical Concerns/comments about fitting: Tarik had bilateral reconstruction on 01/08/2016. Dr. Hermosillo Remover her recalled implants . She had her last drain tube removed on 02/21/22 and today she had a follow up visit. She likes the support of the brian. She also said that she has had a set of silicone breast prosthesis billed in the past in [place]. Did you instruct client on don/doffing procedures: Yes Did you instruct client of care for pros/bras: Yes Did you instruct client of warranty/storage of pros/bras: Yes Purchased: mona [id number] sz 14 wh x1 mona [id number] 14 black x1 Product ordered: mona valetta nude sz 14 style [id number] not pd ship DID YOU RELEASE CARE INSTRUCTIONS Yes documented in this encounterRiverview [facility] Institute09-12-2022 History of Present illness Narrative* DUSTY Hadley - 02/24/2022 12:45 PM EDT DRAIN LOG DRAIN # 2 Date Output 9/9 13 mL 9/10 20 mL 9/11 20 mL 9/12 10 mL Am only DRAIN # 3 Date Output 9/9 22 mL 9/10 25 mL 9/11 25 mL 9/12 10 mL Am only DRAIN # Date Output mL mL mL mL DRAIN # Date Output mL mL mL mL DRAIN # Date Output mL mL mL mL DRAIN # Date Output mL mL mL mL * Valentina Manuel PA-C - 02/24/2022 12:45 PM EDT Plastic and reconstructive surgery progress note Pt was seen and evaluated by the PAC Reason for Visit 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 Surgery: Change of planes from submuscular to prepectoral implants DOS 02/11/22 Subjective Presents for previously scheduled f/u. The patient is 2 weeks status post exchange of bilateral implants for prepectoral implants. The patient notes that she is doing well. Yesterday she believes sheover did house cleaning and is sore along her sternum today. Denies increase in swelling or drain output. She has been taking Tylenol for relief. She does note that there is some rippling of the right upper pole Review of systems: No fevers/chills. No wound symptoms such as redness, swelling, increasing pain, or drainage. Objective Bilateral breasts: incision CDI. No fluid collection. No sign of infection. Assessment Doing well Plan - both drains removed. - Flexeril will be prescribed to her pharmacy for her chest muscle tightness. - discussed restrictions. No heavy lifting and no repetitive arm movements until 4 weeks postop. - Follow up in April for assessment. A total of 15 minutes of vnvh-xa-fkne time were spent in this encounter, of which >50% was spentin counseling and/or coordination of surgical planning and care. documented in this encounterOS[facility]09-12-2022 Miscellaneous Notes* Addendum Note - Valentina Manuel PA-C - 02/24/2022 12:45 PM EDTAddended by: VALENTINA MANUEL on: 02/24/2022 04:04 PM Modules accepted: Orders documented in this encounterOSU [facility]09-12-2022 Note* Addendum Note - Valentina Manuel PA-C - 02/24/2022 12:45 PM EDTAddended by: VALENTINA MANUEL on: 02/24/2022 04:04 PM Modules accepted: Orders [facility]09-09-[facility] History of Present illness Narrative* DUSTY Hadley - 02/21/2022 11:00 AM EDT DRAIN LOG DRAIN # 1 Date Output 02/18 3 mL 9/7 0 mL 9/8 0 mL mL DRAIN # 2 Date Output 9/6 25 mL 9/7 20 mL 9/8 25 mL mL DRAIN # 3 Date Output 9/6 25 mL 9/7 40 mL 9/8 30 mL mL DRAIN # Date Output mL mL mL mL DRAIN # Date Output mL mL mL mL DRAIN # Date Output mL mL mL mL * Brett Fields MD - 02/21/2022 11:00 AM EDT Plastic and reconstructive surgery progress note Pt was seen and evaluated by myself and Dr. 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 Surgery: Change of planes from submuscular to prepectoral implants DOS 02/11/22 Subjective Discharged on POD0 uneventfully Presents for previously scheduled f/u. She has had some controllable aaliyah- incisional pain. Review of systems: No fevers/chills. No wound symptoms such as redness, swelling, increasing pain, or drainage. Objective Bilateral breasts: incision CDI. No fluid collection. No sign of infection. Assessment Doing well Plan - Drain 1 removed. - Follow up on Thursday for possible drain removal (2+3) - Continue abx while drains in place. documented in this encounterOSU [facility]08-30-2022 Miscellaneous Notes* Op Note - Abner Hermosillo MD - 02/11/2022 2:15 PM EDT Operative Report DATE PERFORMED: 02/11/2022 SURGEON(S): Abner Hermosillo MD ASSISTANTS: 1. Zhen Park MD 2. Lety Ni MD. ANESTHESIA: General anesthetic endotracheal tube. ESTIMATED BLOOD LOSS: Minimal. COMPLICATIONS: None. DISPOSITION: Stable to recovery room. DIAGNOSIS: History of bilateral mastectomies with implant-based reconstruction. Patient presents with animation deformity as well as bilateral capsular contracture and pain to the right lateral chest. POSTOPERATIVE DIAGNOSIS: History of bilateral mastectomies with implant-based reconstruction. Patient presents with animation deformity as well as bilateral capsular contracture and pain to the right lateral chest. OPERATIVE PROCEDURES: 1. Bilateral removal of breast implants. 2. Bilateral total capsulectomies. 3. Change of planes from submuscular to prepectoral. 4. Placement of prepectoral implants bilateral. 5. Placement of bioprosthetic mesh, bilateral breast. 6. Exploration of right axilla and excision of scar tissue DRAINS: One 10-Nigerian Mason drain to each breast and one 10-Nigerian Mason drain to right axilla ANESTHESIA: General anesthetic endotracheal tube. ESTIMATED BLOOD LOSS: Approximately 30 cc. COMPLICATIONS: None. DISPOSITION: Stable to recovery room. PREAMBLE: Mrs. Tarik Dunham is a delightful 71-year-old woman with a history of bilateral mastectomies and implant-based breast reconstruction. The patient now presents with the above-mentioned concerns. The risks and benefits of the above-mentioned procedures were discussed in great detail with the patient who understood and wished to proceed. OPERATIVE PROCEDURE IN DETAIL: The patient was taken to the operating room, placed on the operating room table in the supine position and was prepped and draped in usual fashion for this procedure after undergoing general anesthetic and endotracheal intubation. An appropriate surgical time-out was performed and the patient had been marked in the upright standing position preoperatively. We began the operation by re-incising a portion of the prior mastectomy skin incision measuring approximately 8 cm in length along the IM crease bilaterally. Through this incision, we started to elevate the mastectomy skin flaps off the underlying pectoralis major muscle as well as the capsule inferiorly to the extent of the desired new breast footprint. This was done bilaterally. We elevated the pectoralis major muscle from its inferior edge off the underlying capsule to expose the entire anterior capsule. We then followed the capsule around to the chest wall to also elevate the posterior capsule off the underlying chest wall in its entirety. At one point, the implants were removed bilaterally from the capsules and the remaining capsule to the posterior superior aspect of the breasts were removed completely. It was noted that neither implant was ruptured. At this stage, the breasts were irrigated with copious amounts of normal saline and careful hemostasis was achieved, particularly underneath the bilateral pectoralis major muscles. A 10-Nigerian Mason drain was then placed bilaterally underneath the pectoralis major muscles and the leading edge of the pectoralis major muscles were then tacked back down to the chest wall using interrupted 3-0 Vicryl sutures along their desired origin on the inframammary crease. We then used individual 3-0 Vicryl sutures to tack down the medial aspect of the breast pockets and the inframammary creases bilaterally to reconstitute the medial extent of the desired breast footprint and the IM creasesl. At this stage, we placed thepatient in the upright sitting position and trialed various sizers and felt that the [place] Memory Gel Xtra breast implant with a reference number [id number] with a total fill volume of 470 cc and gel smooth round implants gave the best width to projection ratio as desired by the patient. We therefore chose the following implants for the left breast: serial number [id number] and for the right breast an implant with serial number [id number]. The implants were prepared in the standard fashion with a triple antibiotic wash. At this stage, we also prepared the MTF Flex HD bioprosthetic mesh, item number [id number]. For the right breast, it was a piece with serial number [id number] and for the left breast a serial number [id number]. The mesh was meshed in a Yoseph mesher at a 2:1 ratio and then also placed in the aforementioned triple antibiotic solution. At this stage, the breast pockets were irrigated with copious amounts of normal saline. Careful hemostasis was again checked and once we were satisfied, the breast pockets were irrigated with antibiotic solution containing tobramycin, vancomycin, and Ancef. The skin was then re-prepped with Betadine prep solution as were the gloves of the operating team. Following this, we tacked the aforementioned mesh into the breast pocket with interrupted 3-0 Vicryl sutures. Using a Pickens funnel and a minimal touch technique, we then proceeded to place the 2 implants into the breast pockets and then carefully inset the remainder of the mesh to avoid any redundancy, pleating, or folding of the mesh. Once we were satisfied, the skin of the bilateral breasts was closed using 3-0 Vicryl for the superficial fascial closure followed by 3-0 Vicryl for the deep dermal skin closure followed by an intradermal running 4-0 Monocryl skin closure. Next we made a separate 5 cm axillary incision on the right over the area of maximal tenderness andexplored this area by gentle dissection down to the serratus anterior muscle. No neuroma could be identified, but an area of scar tissue was found measuring about 1-2 cm in diameter. This was excisedand sent for permanent pathology. The area was then irrigated with NS, careful hemostasis was achieved and the incision closed in layers with 3-0 Vicryl for the superficial fascial closure, 3-0 Vicryl for the deep dermis and 4-0 Monocryl for the intradermal closure. The closure was accomplished over a drain. Finally, the incisions were dressed with povidone ointment, ABD pads, and the patient was placed in a surgical bra. The drain sites were dressed with Biopatches and Tegaderms. Estimated blood loss for the entire procedure was approximately 30 cc or less. No complications were encountered. The patient tolerated the procedure well and was returned to the recovery room in stable condition following extubation in the operating theater. Please note that all sponge, needle, and instrument counts were correct at the close of the procedure. * Brief Op Note - Valentina Manuel PA-C - 02/11/2022 8:57 AM EDT Tarik Dunham ([id number]) PRE OPERATIVE DIAGNOSIS Pre-op exam [Z01.818] POST OPERATIVE DIAGNOSIS Post-Op Diagnosis Codes: * Pre-op exam [Z01.818] PROCEDURE PERFORMED Procedure(s) (LRB): REMOVAL BREAST IMPLANT INTACT (Bilateral) CAPSULECTOMY BREAST (Bilateral) INSERTION BREAST PROSTHESIS IMMEDIATE (Bilateral) IMPLANTATION BIOLOGIC IMPLANT FOR SOFT TISSUE REINFORCEMENT ADD-ON PX (Bilateral) PRIMARY CLOSURE Yes INTRAOPERATIVE FINDINGS No significant abnormalities SURGEON Surgeon(s) and Role: * Abner Hermosillo MD - Primary * Georgia Ni - Fellow ANESTHESIOLOGIST Anesthesiologist: Agnieszka De Anda MD Route Driver Coin Machines Assisting: Fazal Chavis MD SURGICAL STAFF Stitching Machine Setter: Jackie Sue RN; Ashwin Stevenson RN Physician Parallel Computing Software Engineer: Valentina Manuel PA-C Scrub Person: Marcela Amato Resident Assisting: Zhen Park MD COMPLICATIONS None ESTIMATED BLOOD LOSS Minimal SPECIMENS Cytology specimen sent ID Type Source Tests Collected by Time Destination 1 : Left breast implant for gross Permanent TRACTOR DRIVER TEAMSTER SURG PATH REQUEST Abner Hermosillo MD 02/11/2022 0743 2 : Right breast implant for gross Permanent TRACTOR DRIVER TEAMSTER SURG PATH REQUEST Abner Hermosillo MD 02/11/2022 0748 3 : Left Breast Capsule Permanent SURG PATH SURG PATH REQUEST Abner Hermosillo MD 02/11/2022 0804 4 : Right Breast Capsule Permanent SURG PATH SURG PATH REQUEST Abner Hermosillo MD 02/11/2022 0824 Valentina Manuel PA-C February 11, 2022 8:57 AM [facility] Note* Op Note - Abner Hermosillo MD - 02/11/2022 2:15 PM EDT Operative Report DATE PERFORMED: 02/11/2022 SURGEON(S): Abner Hermosillo MD ASSISTANTS: 1. Zhen Park MD 2. Lety Ni MD. ANESTHESIA: General anesthetic endotracheal tube. ESTIMATED BLOOD LOSS: Minimal. COMPLICATIONS: None. DISPOSITION: Stable to recovery room. DIAGNOSIS: History of bilateral mastectomies with implant-based reconstruction. Patient presents with animation deformity as well as bilateral capsular contracture and pain to the right lateral chest. POSTOPERATIVE DIAGNOSIS: History of bilateral mastectomies with implant-based reconstruction. Patient presents with animation deformity as well as bilateral capsular contracture and pain to the right lateral chest. OPERATIVE PROCEDURES: 1. Bilateral removal of breast implants. 2. Bilateral total capsulectomies. 3. Change of planes from submuscular to prepectoral. 4. Placement of prepectoral implants bilateral. 5. Placement of bioprosthetic mesh, bilateral breast. 6. Exploration of right axilla and excision of scar tissue DRAINS: One 10-Nigerian Mason drain to each breast and one 10-Nigerian Mason drain to right axilla ANESTHESIA: General anesthetic endotracheal tube. ESTIMATED BLOOD LOSS: Approximately 30 cc. COMPLICATIONS: None. DISPOSITION: Stable to recovery room. PREAMBLE: Mrs. Tarik Dunham is a delightful 71-year-old woman with a history of bilateral mastectomies and implant-based breast reconstruction. The patient now presents with the above-mentioned concerns. The risks and benefits of the above-mentioned procedures were discussed in great detail with the patient who understood and wished to proceed. OPERATIVE PROCEDURE IN DETAIL: The patient was taken to the operating room, placed on the operating room table in the supine position and was prepped and draped in usual fashion for this procedure after undergoing general anesthetic and endotracheal intubation. An appropriate surgical time-out was performed and the patient had been marked in the upright standing position preoperatively. We began the operation by re-incising a portion of the prior mastectomy skin incision measuring approximately 8 cm in length along the IM crease bilaterally. Through this incision, we started to elevate the mastectomy skin flaps off the underlying pectoralis major muscle as well as the capsule inferiorly to the extent of the desired new breast footprint. This was done bilaterally. We elevated the pectoralis major muscle from its inferior edge off the underlying capsule to expose the entire anterior capsule. We then followed the capsule around to the chest wall to also elevate the posterior capsule off the underlying chest wall in its entirety. At one point, the implants were removed bilaterally from the capsules and the remaining capsule to the posterior superior aspect of the breasts were removed completely. It was noted that neither implant was ruptured. At this stage, the breasts were irrigated with copious amounts of normal saline and careful hemostasis was achieved, particularly underneath the bilateral pectoralis major muscles. A 10-Nigerian Mason drain was then placed bilaterally underneath the pectoralis major muscles and the leading edge of the pectoralis major muscles were then tacked back down to the chest wall using interrupted 3-0 Vicryl sutures along their desired origin on the inframammary crease. We then used individual 3-0 Vicryl sutures to tack down the medial aspect of the breast pockets and the inframammary creases bilaterally to reconstitute the medial extent of the desired breast footprint and the IM creasesl. At this stage, we placed thepatient in the upright sitting position and trialed various sizers and felt that the [place] Memory Gel Xtra breast implant with a reference number [id number] with a total fill volume of 470 cc and gel smooth round implants gave the best width to projection ratio as desired by the patient. We therefore chose the following implants for the left breast: serial number [id number] and for the right breast an implant with serial number [id number]. The implants were prepared in the standard fashion with a triple antibiotic wash. At this stage, we also prepared the MTF Flex HD bioprosthetic mesh, item number [id number]. For the right breast, it was a piece with serial number [id number] and for the left breast a serial number [id number]. The mesh was meshed in a Yoseph mesher at a 2:1 ratio and then also placed in the aforementioned triple antibiotic solution. At this stage, the breast pockets were irrigated with copious amounts of normal saline. Careful hemostasis was again checked and once we were satisfied, the breast pockets were irrigated with antibiotic solution containing tobramycin, vancomycin, and Ancef. The skin was then re-prepped with Betadine prep solution as were the gloves of the operating team. Following this, we tacked the aforementioned mesh into the breast pocket with interrupted 3-0 Vicryl sutures. Using a Pickens funnel and a minimal touch technique, we then proceeded to place the 2 implants into the breast pockets and then carefully inset the remainder of the mesh to avoid any redundancy, pleating, or folding of the mesh. Once we were satisfied, the skin of the bilateral breasts was closed using 3-0 Vicryl for the superficial fascial closure followed by 3-0 Vicryl for the deep dermal skin closure followed by an intradermal running 4-0 Monocryl skin closure. Next we made a separate 5 cm axillary incision on the right over the area of maximal tenderness andexplored this area by gentle dissection down to the serratus anterior muscle. No neuroma could be identified, but an area of scar tissue was found measuring about 1-2 cm in diameter. This was excisedand sent for permanent pathology. The area was then irrigated with NS, careful hemostasis was achieved and the incision closed in layers with 3-0 Vicryl for the superficial fascial closure, 3-0 Vicryl for the deep dermis and 4-0 Monocryl for the intradermal closure. The closure was accomplished over a drain. Finally, the incisions were dressed with povidone ointment, ABD pads, and the patient was placed in a surgical bra. The drain sites were dressed with Biopatches and Tegaderms. Estimated blood loss for the entire procedure was approximately 30 cc or less. No complications were encountered. The patient tolerated the procedure well and was returned to the recovery room in stable condition following extubation in the operating theater. Please note that all sponge, needle, and instrument counts were correct at the close of the procedure. [facility] Work Phone: 1(655) 540-905308-30-2022 Nurse Surgical operation note* Danielle Victoria RN - 02/11/2022 12:58 PM EDT 1243- [facility] Vital signs taken and stable. Patient given drink and snacks. Family called to bedside. Patient assessed. 1400- Discharge instructions, anesthesia precautions and prescriptions explained to patient and family/friend. All questions answered. 1407- IV removed 1413- Patient meets ASU discharge criteria and discharged per MD order to home. Patient taken by wheelchair by [employer] ICE CREAM FREEZER HELPER to awaiting car. All belongings gathered with patient. Family/friend to drivepatient home and care for patient 24 hours post-op. [facility]08[facility] Nurse Note* Danielle Victoria RN - 02/11/2022 12:58 PM EDT 1243- [facility] [place]. Vital signs taken and stable. Patient given drink and snacks. Family called to bedside. Patient assessed. 1400- Discharge instructions, anesthesia precautions and prescriptions explained to patient and family/friend. All questions answered. 1407- IV removed 1413- Patient meets ASU discharge criteria and discharged per MD order to home. Patient taken by wheelchair by [employer] ICE CREAM FREEZER HELPER to awaiting car. All belongings gathered with patient. Family/friend to drivepatient home and care for patient 24 hours post-op. * Herminia Conrad RN - 02/11/2022 10:25 AM EDT 1001: Patient arrives in [facility] PACU from [place] via [place] with side rails up x2 with HOB >30 degrees, accompanied by Route Driver Coin Machines Assisting: Fazal Chavis MD and team. Patient placed on monitors, VSS. Report received from anesthesia and team. Patient assessed, see assessment. 1025: Called Dr. De Anda regarding patient feeling like it is "hard to breathe" and reports feeling chest tightness. Notified Dr. De Anda of her having a laryngeal spasm after coming to PACU. Recommendation is to continue to monitor patient and to obtain a 12 lead if this persists. 1030: Dr. De Anda came to bedside to see patient. * Jackie Sue RN - 02/11/2022 9:58 AM EDT Mepilex dressing applied to lower bony prominence in ASU Report received from ASU director private music therapy agency notified of start time at 0737 via [facility] text/page system Family updated 0900 Yellow sheet sent to PACU Notified PACU charge of patient arrival time. Patient transported to PACU by anesthesia, side rails up x2 Report given to PACU, no further questions Existing implants explanted 02/11 at 0800. * Danielle Victoria RN - 02/11/2022 5:38 AM EDT Pt DENIES h/o chemotherapy and radiation. Pt HAS metal in right shoulder and right big toe. Pt DENIES h/o seizures or stroke. [facility] encounterU [facility] Surgical operation note* Herminia Conrad RN - 02/11/2022 10:25 AM EDT 1001: Patient arrives in [facility] PACU from OR via gurney with side rails up x2 with HOB >30 degrees, accompanied by Route Driver Coin Machines Assisting: Fazal Chavis MD and team. Patient placed on monitors, VSS. Report received from anesthesia and team. Patient assessed, see assessment. 1025: Called Dr. De Anda regarding patient feeling like it is "hard to breathe" and reports feeling chest tightness. Notified Dr. De Anda of her having a laryngeal spasm after coming to PACU. Recommendation is to continue to monitor patient and to obtain a 12 lead if this persists. 1030: Dr. De Anda came to bedside to see patient. [facility]08-[facility] Nurse Surgical operation note* Jackie Sue RN - 02/11/2022 9:58 AM EDT Mepilex dressing applied to lower bony prominence in ASU Report received from ASU director private music therapy agency notified of start time at 0737 via [facility] text/page system Family updated 0900 Yellow sheet sent to PACU Notified PACU charge of patient arrival time. Patient transported to PACU by anesthesia, side rails up x2 Report given to PACU, no further questions Existing implants explanted 02/11 at 0800. [facility] Discharge [facility]* Discharge Instructions* Valentina Manuel PA-C - 02/11/2022 8:59 AM EDT Home Care After Breast Surgery The following instructions will help you care for yourself, or be cared for upon your return home today. These are guidelines for your care right after surgery only. Diet: Start your regular diet today Activity: No installer interior assemblies such as vacuuming, or heavy cleaning No strenuous physical sports or exercise No Lift, pull or move objects greater than 5 pounds Limit raising your right and left arm to no higher than your shoulder or 90 degrees. Do use your arm to eat, comb your hair, and do light activities. You may return to work in 1-4 weeks You may return to driving once off narcotic pain medications. Wound Care and Hygiene: You may remove outer dressing in 48 hours. You may begin to shower 48 hours post-op. You may be discharged with a surgical bra. Wear this garment 05/01 until you return to clinic. Apply povidone ointment to incision line daily. Pain Medication: A prescription for pain medicine will be sent home with you. Do not drive while taking prescriptionpain medicine. Eat when taking pain medicines to avoid nausea. Watch for constipation. Eat plenty of fruits, vegetables, juices, and drink 6 to 8 glasses of water each day. If this medicine is too strong, or no longer needed, you may take Ibuprofen, like Advil or Motrin, 200 mg. (milligram) tablets- Take 2 tablets every 4 to 6 hours as needed for pain. Do not use this if you have stomach problems, stomach ulcers, or if you are on blood thinners, like Coumadin. Take an over the counter stool softeners twice daily while taking the narcotic pain medicine to prevent constipation. Take a stool softener twice a day as long as you remain on pain medicine. If you do not have a bowel movement within 5 days of your surgery, please take milk of magnesia. If you do not have a bowel movement within 12 hours of milk of magnesia, call the office. Antibiotics: You may be sent home with an antibiotic, take the antibiotic as prescribed. If you have drains you must continue the antibiotic until all the drains are removed. Anesthesia Precautions & Expectations: After anesthesia, rest for [address], drink alcoholic beverages or make any important decisions during this time. General anesthesia may cause a sore throat, jaw discomfort or muscle aches. These symptoms can last for one or two days. What to Expect after Surgery: Some drainage, bruising and swelling from the incision. Mild to moderate discomfort and tenderness. Call your Doctor for: Pain not relieved with medicines. Increased amounts of redness, swelling, bleeding or any drainage (pus) from the incision. Temperature above 101 degrees. Call Plastic Surgery at [phone] to confirm your follow-up appointment on 02/21/2022. If you have questions or problems, call us. If you are unable to reach your doctor call: Ambulatory Surgery Unit at The hospital flash oven operator at . Ask for the resident diamond sawer for your doctor. - [facility] in this encounterOS[facility]* Brief Op Note - Valentina Manuel PA-C - 02/11/2022 8:57 AM EDT Tarik Dunham ([id number]) PRE OPERATIVE DIAGNOSIS Pre-op exam [Z01.818] POST OPERATIVE DIAGNOSIS Post-Op Diagnosis Codes: * Pre-op exam [Z01.818] PROCEDURE PERFORMED Procedure(s) (LRB): REMOVAL BREAST IMPLANT INTACT (Bilateral) CAPSULECTOMY BREAST (Bilateral) INSERTION BREAST PROSTHESIS IMMEDIATE (Bilateral) IMPLANTATION BIOLOGIC IMPLANT FOR SOFT TISSUE REINFORCEMENT ADD-ON PX (Bilateral) PRIMARY CLOSURE Yes INTRAOPERATIVE FINDINGS No significant abnormalities SURGEON Surgeon(s) and Role: * Abner Hermosillo MD - Primary * Georgia Ni - Fellow ANESTHESIOLOGIST Anesthesiologist: Agnieszka De Anda MD Route Driver Coin Machines Assisting: Fazal Chavis MD SURGICAL STAFF Stitching Machine Setter: Jackie Sue RN; Ashwin Stevenson RN Physician Parallel Computing Software Engineer: Valentina Manuel PA-C Scrub Person: Marcela Boston Assisting: Zhen Park MD COMPLICATIONS None ESTIMATED BLOOD LOSS Minimal SPECIMENS Cytology specimen sent ID Type Source Tests Collected by Time Destination 1 : Left breast implant for gross Permanent TRACTOR DRIVER TEAMSTER SURG PATH REQUEST Abner Hermosillo MD 02/11/2022 0743 2 : Right breast implant for gross Permanent TRACTOR DRIVER TEAMSTER SURG PATH REQUEST Abner Hermosillo MD 02/11/2022 0748 3 : Left Breast Capsule Permanent SURG PATH SURG PATH REQUEST Abner Hermosillo MD 02/11/2022 0804 4 : Right Breast Capsule Permanent SURG PATH SURG PATH REQUEST Abner Hermosillo MD 02/11/2022 0824 Valentina Manuel PA-C February 11, 2022 8:57 AM [facility]08-30-[facility] Attending History and physical note* Valentina Manuel PA-C - 02/11/2022 6:38 AM EDT I have personally seen and evaluated Tarik Dunham today. The patient reports no changes in their health status since I last saw them on 01/27/2022. I have reviewed their current chart, including medications, allergies, and laboratory results. The planned procedure(s) is (are): Removal of bilateral implants, capsulectomy, change of planes, placement of new implants, possible TMR. The patient remains appropriate for this today. The associated risks, benefits, alternatives, and complications, have been reviewed with the patient and they wish to proceed. Valentina Manuel PA-C, 02/11/2022, 6:38 AM. Source Note - Valentina Manuel PA-C - 01/27/2022 12:00 PM EDT Plastic and Reconstructive Surgery H&P HPI: Ms. Dunham is a 71 y.o. female. H/o right breast cancer 5 years ago S/p bilateral nipple sparing mastectomy and right SLNB. Implant based reconstruction, with lateral displacement of the right implant and subsequent exchange for Allergan textured implants. Current implant are allergan TCF 450, BD 13, Projection 5.3 They present preoperatively for planned: Removal of bilateral implants, capsulectomy, change of planes, placement of new implants, possible TMR. Scheduled for: 02/11/2022 Since I last saw the patient, the following changes in health status/surgical plan are noted: None. Review of Systems: No F/C. No CP/SOB. Past Medical History: Diagnosis Date Diverticulitis Dysphagia Esophageal reflux GERD (gastroesophageal reflux disease) Hyperlipidemia Malignant neoplasm of female breast Right DCIS 2016 Osteoporosis Past Surgical History: Procedure Laterality Date HAND SURGERY Right 11/26/2021 ruptured tendon RELEASE CARPAL TUNNEL 2018 MASTECTOMY Bilateral 01/08/2016 implant placed at same time. allergan RECONSTRUCTION EYELID Bilateral 2013 eyelid lift COLONOSCOPY DIAGNOSTIC 06/11/2004 FOOT SURGERY Left left neuroma HAND SURGERY Right SHOULDER SURGERY Right TONSILLECTOMY TOTAL VAGINAL HYSTERECTOMY TRAUMA PELVIS broken pelvis No Known Allergies Outpatient Medications Prior to Visit Medication Sig Dispense Refill celecoxib 100 MG capsule as needed. cholecalciferol 50 MCG (1999 UT) capsule Take 2,000 Units by mouth daily. famotidine 40 MG tablet every evening at 6 PM. gabapentin 300 MG capsule 2 times daily. Magnesium 100 MG tablet Take 200 mg by mouth daily. MISC NATURAL PRODUCTS PO Take by mouth daily. Niacin 25 mg, B6 5 mg, calcium 20 mg, iodine 300 mcg,and sodium 5 mg Restasis 0.05 % Emulsion ophthalmic suspension VALERIAN PO Take 400 mg by mouth daily. With 5 mg melatonin, ashwaganda 125 mg, and [id number] mg ascorbic acid 500 MG tablet Take 500 mg by mouth daily. (Patient not taking: Reported on 10/04/2021) atorvastatin 10 MG tablet Take 1 tablet by mouth daily. (Patient not taking: Reported on 05/13/2021) Coenzyme Q10 10 MG capsule Take by mouth 2 times daily. (Patient not taking: Reported on 10/04/2021) diltiazem 30 MG tablet Take 30 mg by mouth. (Patient not taking: No sig reported) donepezil 5 MG tablet (Patient not taking: Reported on 10/04/2021) Levothyroxine Sodium (LEVOTHYROXINE PO) Take by mouth at bedtime. Pt unsure of dose (Patient not taking: Reported on 01/27/2022) melatonin 3 MG tablet Take 5 mg by mouth at bedtime. (Patient not taking: Reported on 10/04/2021) pantoprazole [address] tablet DR Take 40 mg by mouth daily. (Patient not taking: No sig reported) sucralfate 1 g tablet as needed. No facility-administered medications prior to visit. Social History Tobacco Use Smoking status: Never Smoker Smokeless tobacco: Never Used Family History Problem Relation Age of Onset Breast Cancer Mother Breast Cancer Sister Breast Cancer Maternal Aunt Prostate Cancer Maternal Uncle Breast Cancer Maternal Aunt Colorectal Cancer Maternal Uncle Breast Cancer Maternal Cousin Breast Cancer Maternal Aunt Negative for problems with anesthesia, surgery, bleeding, or wound healing problems. 1 point each: [] Age 41-60 [] minor surgery planned [] history of prior major surgery (<1 month) [] varicose veins [] history of IBD [] current swollen legs [x] obesity (BMI>25) [] acute NV [] CHF <1 month [] sepsis (<1 month) [] Lung disease including PNA (<1 month) [] Abnormal pulmonary fxn (COPD) [] Currently on bedrest [] OCP or HRT [] or (<1 month) [] Hx unexplained stillborn, spontaneous (>3), premature with toxemia or growth restricted 2 points each: [x] Age 60-74 [] Arthroscopic surgery [x] Malignancy hx [x] Major surgery planned (>45 min) [] Laparoscopic surgery (>45 min) [] Patient confined to bed (>72 hrs) []Immobilizing plaster cast [] Central Venous Access 3 points each: [] Age >75 [] Hx DVT/PE [] Family hx of thrombosis [] Factor V Leiden [] Prothrombin 84269N [] Elevated serum homocysteine [] Positive Lupus anticoagulant [] Elevated anticardiolipin antibodies [] HIT [] Other thrombophilia 5 points each: [] Elective major lower arthroplasty [] Hip, pelvis, or leg fx [] stroke (<1 month) [] Multiple Trauma (<1 month) [] Acute spinal cord injury (<1 month) Total Score: 7 Strongly consider chemoprophylaxis if 7 or greater. Physical Examination weight is 69.4 kg (153 lb 1.6 oz). Her oral temperature is 98.4 F (36.9 C). Her blood pressure is 123/60 and her pulse is 62. Her respiration is 16 and oxygen saturation is 95%. Estimated body mass index is 24.34 kg/m as calculated from the following: Height as of 05/13/21: 1.689 m (5' 6.5"). Weight as of this encounter: 69.4 kg (153 lb 1.6 oz). General: NAD, well appearing HEENT: NC/AT, CN 2-12 grossly intact, V1-V3 grossly intact, no LAD/lesions Extremities: Neurovascularly intact Breasts: - Size: 38 B - Symmetry: symmetric - Deformity: surface irregularities, animation deformity, grade 2 capsular contracture, upper pole excess fullness and relative lack of lower pole projection - Ptosis: none - Scars: IM crease Abdomen: - Scars: none - Rectus abdominis muscle: contracts normally bilaterally - Hernia: none - Diastasis: none - Soft tissue: adequate - Obese: no Assessment, Plan I reviewed the planned procedure(s) with the patient as listed above. For each procedure, I reviewed the incisions/scars, duration, recovery time, postoperative restrictions, and follow-up. When applicable, I discussed hospitalization, dressing changes, drains, and donor site morbidity. Risks that were discussed include surgical (bleeding, infection, hematoma, seroma, wound breakdown,need for further surgery, pain, numbness, weakness, asymmetry, cosmetic deformity, injury to structures) and medical (heart attack, pneumonia, DVT/PE, ). When applicable, I discussed partial/complete graft or flap loss. All of the patient's questions/concerns were addressed. The patient understands all of these things, wishes to proceed, and signed the consent form. Implants ordered Pre-op orders completed. [facility]08-30-2022 History and physical note* Valentina Manuel PA-C - 02/11/2022 6:38 AM EDT I have personally seen and evaluated Tarik Dunham today. The patient reports no changes in their health status since I last saw them on 01/27/2022. I have reviewed their current chart, including medications, allergies, and laboratory results. The planned procedure(s) is (are): Removal of bilateral implants, capsulectomy, change of planes, placement of new implants, possible TMR. The patient remains appropriate for this today. The associated risks, benefits, alternatives, and complications, have been reviewed with the patient and they wish to proceed. Valentina Manuel PA-C, 02/11/2022, 6:38 AM. Source Note - Valentina Manuel PA-C - 01/27/2022 12:00 PM EDT Plastic and Reconstructive Surgery H&P HPI: Ms. Dunham is a 71 y.o. female. H/o right breast cancer 5 years ago S/p bilateral nipple sparing mastectomy and right SLNB. Implant based reconstruction, with lateral displacement of the right implant and subsequent exchange for Allergan textured implants. Current implant are allergan TCF 450, BD 13, Projection 5.3 They present preoperatively for planned: Removal of bilateral implants, capsulectomy, change of planes, placement of new implants, possible TMR. Scheduled for: 02/11/2022 Since I last saw the patient, the following changes in health status/surgical plan are noted: None. Review of Systems: No F/C. No CP/SOB. Past Medical History: Diagnosis Date Diverticulitis Dysphagia Esophageal reflux GERD (gastroesophageal reflux disease) Hyperlipidemia Malignant neoplasm of female breast Right DCIS 2016 Osteoporosis Past Surgical History: Procedure Laterality Date HAND SURGERY Right 11/26/2021 ruptured tendon RELEASE CARPAL TUNNEL 2018 MASTECTOMY Bilateral 01/08/2016 implant placed at same time. allergan RECONSTRUCTION EYELID Bilateral 2014 eyelid lift COLONOSCOPY DIAGNOSTIC 06/11/2004 FOOT SURGERY Left left neuroma HAND SURGERY Right SHOULDER SURGERY Right TONSILLECTOMY TOTAL VAGINAL HYSTERECTOMY TRAUMA PELVIS broken pelvis No Known Allergies Outpatient Medications Prior to Visit Medication Sig Dispense Refill celecoxib 100 MG capsule as needed. cholecalciferol 50 MCG (2000 UT) capsule Take 2,000 Units by mouth daily. famotidine 40 MG tablet every evening at 6 PM. gabapentin 300 MG capsule 2 times daily. Magnesium 100 MG tablet Take 200 mg by mouth daily. MISC NATURAL PRODUCTS PO Take by mouth daily. Niacin 25 mg, B6 5 mg, calcium 20 mg, iodine 300 mcg,and sodium 5 mg Restasis 0.05 % Emulsion ophthalmic suspension VALERIAN PO Take 400 mg by mouth daily. With 5 mg melatonin, ashwaganda 125 mg, and [id number] mg ascorbic acid 500 MG tablet Take 500 mg by mouth daily. (Patient not taking: Reported on 10/04/2021) atorvastatin 10 MG tablet Take 1 tablet by mouth daily. (Patient not taking: Reported on 05/13/2021) Coenzyme Q10 10 MG capsule Take by mouth 2 times daily. (Patient not taking: Reported on 10/04/2021) diltiazem 30 MG tablet Take 30 mg by mouth. (Patient not taking: No sig reported) donepezil 5 MG tablet (Patient not taking: Reported on 10/04/2021) Levothyroxine Sodium (LEVOTHYROXINE PO) Take by mouth at bedtime. Pt unsure of dose (Patient not taking: Reported on 01/27/2022) melatonin 3 MG tablet Take 5 mg by mouth at bedtime. (Patient not taking: Reported on 10/04/2021) pantoprazole [address] tablet DR Take 40 mg by mouth daily. (Patient not taking: No sig reported) sucralfate 1 g tablet as needed. No facility-administered medications prior to visit. Social History Tobacco Use Smoking status: Never Smoker Smokeless tobacco: Never Used Family History Problem Relation Age of Onset Breast Cancer Mother Breast Cancer Sister Breast Cancer Maternal Aunt Prostate Cancer Maternal Uncle Breast Cancer Maternal Aunt Colorectal Cancer Maternal Uncle Breast Cancer Maternal Cousin Breast Cancer Maternal Aunt Negative for problems with anesthesia, surgery, bleeding, or wound healing problems. 1 point each: [] Age 41-60 [] minor surgery planned [] history of prior major surgery (<1 month) [] varicose veins [] history of IBD [] current swollen legs [x] obesity (BMI>25) [] acute NV [] CHF <1 month [] sepsis (<1 month) [] Lung disease including PNA (<1 month) [] Abnormal pulmonary fxn (COPD) [] Currently on bedrest [] OCP or HRT [] or (<1 month) [] Hx unexplained stillborn, spontaneous (>3), premature with toxemia or growth restricted 2 points each: [x] Age 60-74 [] Arthroscopic surgery [x] Malignancy hx [x] Major surgery planned (>45 min) [] Laparoscopic surgery (>45 min) [] Patient confined to bed (>72 hrs) []Immobilizing plaster cast [] Central Venous Access 3 points each: [] Age >75 [] Hx DVT/PE [] Family hx of thrombosis [] Factor V Leiden [] Prothrombin [id number] [] Elevated serum homocysteine [] Positive Lupus anticoagulant [] Elevated anticardiolipin antibodies [] HIT [] Other thrombophilia 5 points each: [] Elective major lower arthroplasty [] Hip, pelvis, or leg fx [] stroke (<1 month) [] Multiple Trauma (<1 month) [] Acute spinal cord injury (<1 month) Total Score: 7 Strongly consider chemoprophylaxis if 7 or greater. Physical Examination weight is 69.4 kg (153 lb 1.6 oz). Her oral temperature is 98.4 F (36.9 C). Her blood pressure is 123/60 and her pulse is 62. Her respiration is 16 and oxygen saturation is 95%. Estimated body mass index is 24.34 kg/m as calculated from the following: Height as of 05/13/21: 1.689 m (5' 6.5"). Weight as of this encounter: 69.4 kg (153 lb 1.6 oz). General: NAD, well appearing HEENT: NC/AT, CN 2-12 grossly intact, V1-V3 grossly intact, no LAD/lesions Extremities: Neurovascularly intact Breasts: - Size: 38 B - Symmetry: symmetric - Deformity: surface irregularities, animation deformity, grade 2 capsular contracture, upper pole excess fullness and relative lack of lower pole projection - Ptosis: none - Scars: IM crease Abdomen: - Scars: none - Rectus abdominis muscle: contracts normally bilaterally - Hernia: none - Diastasis: none - Soft tissue: adequate - Obese: no Assessment, Plan I reviewed the planned procedure(s) with the patient as listed above. For each procedure, I reviewed the incisions/scars, duration, recovery time, postoperative restrictions, and follow-up. When applicable, I discussed hospitalization, dressing changes, drains, and donor site morbidity. Risks that were discussed include surgical (bleeding, infection, hematoma, seroma, wound breakdown,need for further surgery, pain, numbness, weakness, asymmetry, cosmetic deformity, injury to structures) and medical (heart attack, pneumonia, DVT/PE, ). When applicable, I discussed partial/complete graft or flap loss. All of the patient's questions/concerns were addressed. The patient understands all of these things, wishes to proceed, and signed the consent form. Implants ordered Pre-op orders completed. [facility] Surgical operation note* Danielle Victoria RN - 02/11/2022 5:38 AM EDT Pt DENIES h/o chemotherapy and radiation. Pt HAS metal in right shoulder and right big toe. Pt DENIES h/o seizures or stroke. [facility] History and physical note* Valentina Manuel PA-C - 01/27/2022 12:00 PM EDT Plastic and Reconstructive Surgery H&P HPI: Ms. Dunham is a 71 y.o. female. H/o right breast cancer 5 years ago S/p bilateral nipple sparing mastectomy and right SLNB. Implant based reconstruction, with lateral displacement of the right implant and subsequent exchange for Allergan textured implants. Current implant are allergan TCF 450, BD 13, Projection 5.3 They present preoperatively for planned: Removal of bilateral implants, capsulectomy, change of planes, placement of new implants, possible TMR. Scheduled for: 02/11/2022 Since I last saw the patient, the following changes in health status/surgical plan are noted: None. Review of Systems: No F/C. No CP/SOB. Past Medical History: Diagnosis Date Diverticulitis Dysphagia Esophageal reflux GERD (gastroesophageal reflux disease) Hyperlipidemia Malignant neoplasm of female breast Right DCIS 2016 Osteoporosis Past Surgical History: Procedure Laterality Date HAND SURGERY Right 11/26/2021 ruptured tendon RELEASE CARPAL TUNNEL 2018 MASTECTOMY Bilateral 01/08/2016 implant placed at same time. allergan RECONSTRUCTION EYELID Bilateral 2014 eyelid lift COLONOSCOPY DIAGNOSTIC 06/11/2004 FOOT SURGERY Left left neuroma HAND SURGERY Right SHOULDER SURGERY Right TONSILLECTOMY TOTAL VAGINAL HYSTERECTOMY TRAUMA PELVIS broken pelvis No Known Allergies Outpatient Medications Prior to Visit Medication Sig Dispense Refill celecoxib 100 MG capsule as needed. cholecalciferol 50 MCG (2000 UT) capsule Take 2,000 Units by mouth daily. famotidine 40 MG tablet every evening at 6 PM. gabapentin 300 MG capsule 2 times daily. Magnesium 100 MG tablet Take 200 mg by mouth daily. MISC NATURAL PRODUCTS PO Take by mouth daily. Niacin 25 mg, B6 5 mg, calcium 20 mg, iodine 300 mcg,and sodium 5 mg Restasis 0.05 % Emulsion ophthalmic suspension VALERIAN PO Take 400 mg by mouth daily. With 5 mg melatonin, ashwaganda 125 mg, and [id number] mg ascorbic acid 500 MG tablet Take 500 mg by mouth daily. (Patient not taking: Reported on 10/04/2021) atorvastatin 10 MG tablet Take 1 tablet by mouth daily. (Patient not taking: Reported on 05/13/2021) Coenzyme Q10 10 MG capsule Take by mouth 2 times daily. (Patient not taking: Reported on 10/04/2021) diltiazem 30 MG tablet Take 30 mg by mouth. (Patient not taking: No sig reported) donepezil 5 MG tablet (Patient not taking: Reported on 10/04/2021) Levothyroxine Sodium (LEVOTHYROXINE PO) Take by mouth at bedtime. Pt unsure of dose (Patient not taking: Reported on 01/27/2022) melatonin 3 MG tablet Take 5 mg by mouth at bedtime. (Patient not taking: Reported on 10/04/2021) pantoprazole [address] tablet DR Take 40 mg by mouth daily. (Patient not taking: No sig reported) sucralfate 1 g tablet as needed. No facility-administered medications prior to visit. Social History Tobacco Use Smoking status: Never Smoker Smokeless tobacco: Never Used Family History Problem Relation Age of Onset Breast Cancer Mother Breast Cancer Sister Breast Cancer Maternal Aunt Prostate Cancer Maternal Uncle Breast Cancer Maternal Aunt Colorectal Cancer Maternal Uncle Breast Cancer Maternal Cousin Breast Cancer Maternal Aunt Negative for problems with anesthesia, surgery, bleeding, or wound healing problems. 1 point each: [] Age 41-60 [] minor surgery planned [] history of prior major surgery (<1 month) [] varicose veins [] history of IBD [] current swollen legs [x] obesity (BMI>25) [] acute NV [] CHF <1 month [] sepsis (<1 month) [] Lung disease including PNA (<1 month) [] Abnormal pulmonary fxn (COPD) [] Currently on bedrest [] OCP or HRT [] or (<1 month) [] Hx unexplained stillborn, spontaneous (>3), premature with toxemia or growth restricted 2 points each: [x] Age 60-74 [] Arthroscopic surgery [x] Malignancy hx [x] Major surgery planned (>45 min) [] Laparoscopic surgery (>45 min) [] Patient confined to bed (>72 hrs) []Immobilizing plaster cast [] Central Venous Access 3 points each: [] Age >75 [] Hx DVT/PE [] Family hx of thrombosis [] Factor V Leiden [] Prothrombin 97256K [] Elevated serum homocysteine [] Positive Lupus anticoagulant [] Elevated anticardiolipin antibodies [] HIT [] Other thrombophilia 5 points each: [] Elective major lower arthroplasty [] Hip, pelvis, or leg fx [] stroke (<1 month) [] Multiple Trauma (<1 month) [] Acute spinal cord injury (<1 month) Total Score: 7 Strongly consider chemoprophylaxis if 7 or greater. Physical Examination weight is 69.4 kg (153 lb 1.6 oz). Her oral temperature is 98.4 F (36.9 C). Her blood pressure is 123/60 and her pulse is 62. Her respiration is 16 and oxygen saturation is 95%. Estimated body mass index is 24.34 kg/m as calculated from the following: Height as of 05/13/21: 1.689 m (5' 6.5"). Weight as of this encounter: 69.4 kg (153 lb 1.6 oz). General: NAD, well appearing HEENT: NC/AT, CN 2-12 grossly intact, V1-V3 grossly intact, no LAD/lesions Extremities: Neurovascularly intact Breasts: - Size: 38 B - Symmetry: symmetric - Deformity: surface irregularities, animation deformity, grade 2 capsular contracture, upper pole excess fullness and relative lack of lower pole projection - Ptosis: none - Scars: IM crease Abdomen: - Scars: none - Rectus abdominis muscle: contracts normally bilaterally - Hernia: none - Diastasis: none - Soft tissue: adequate - Obese: no Assessment, Plan I reviewed the planned procedure(s) with the patient as listed above. For each procedure, I reviewed the incisions/scars, duration, recovery time, postoperative restrictions, and follow-up. When applicable, I discussed hospitalization, dressing changes, drains, and donor site morbidity. Risks that were discussed include surgical (bleeding, infection, hematoma, seroma, wound breakdown,need for further surgery, pain, numbness, weakness, asymmetry, cosmetic deformity, injury to structures) and medical (heart attack, pneumonia, DVT/PE, ). When applicable, I discussed partial/complete graft or flap loss. All of the patient's questions/concerns were addressed. The patient understands all of these things, wishes to proceed, and signed the consent form. Implants ordered Pre-op orders completed. [facility] Work Phone: [phone]) 725-283108-15-2022 History and physical note* Valentina Manuel PA-C - 01/27/2022 12:00 PM EDT Plastic and Reconstructive Surgery H&P HPI: Ms. Dunham is a 71 y.o. female. H/o right breast cancer 5 years ago S/p bilateral nipple sparing mastectomy and right SLNB. Implant based reconstruction, with lateral displacement of the right implant and subsequent exchange for Allergan textured implants. Current implant are allergan TCF 450, BD 13, Projection 5.3 They present preoperatively for planned: Removal of bilateral implants, capsulectomy, change of planes, placement of new implants, possible TMR. Scheduled for: 02/11/2022 Since I last saw the patient, the following changes in health status/surgical plan are noted: None. Review of Systems: No F/C. No CP/SOB. Past Medical History: Diagnosis Date Diverticulitis Dysphagia Esophageal reflux GERD (gastroesophageal reflux disease) Hyperlipidemia Malignant neoplasm of female breast Right DCIS 2016 Osteoporosis Past Surgical History: Procedure Laterality Date HAND SURGERY Right 11/26/2021 ruptured tendon RELEASE CARPAL TUNNEL 2018 MASTECTOMY Bilateral 01/08/2016 implant placed at same time. allergan RECONSTRUCTION EYELID Bilateral 2013 eyelid lift COLONOSCOPY DIAGNOSTIC 06/11/2004 FOOT SURGERY Left left neuroma HAND SURGERY Right SHOULDER SURGERY Right TONSILLECTOMY TOTAL VAGINAL HYSTERECTOMY TRAUMA PELVIS broken pelvis No Known Allergies Outpatient Medications Prior to Visit Medication Sig Dispense Refill celecoxib 100 MG capsule as needed. cholecalciferol 50 MCG (2000 UT) capsule Take 2,000 Units by mouth daily. famotidine 40 MG tablet every evening at 6 PM. gabapentin 300 MG capsule 2 times daily. Magnesium 100 MG tablet Take 200 mg by mouth daily. MISC NATURAL PRODUCTS PO Take by mouth daily. Niacin 25 mg, B6 5 mg, calcium 20 mg, iodine 300 mcg,and sodium 5 mg Restasis 0.05 % Emulsion ophthalmic suspension VALERIAN PO Take 400 mg by mouth daily. With 5 mg melatonin, ashwaganda 125 mg, and [id number] mg ascorbic acid 500 MG tablet Take 500 mg by mouth daily. (Patient not taking: Reported on 10/04/2021) atorvastatin 10 MG tablet Take 1 tablet by mouth daily. (Patient not taking: Reported on 05/13/2021) Coenzyme Q10 10 MG capsule Take by mouth 2 times daily. (Patient not taking: Reported on 10/04/2021) diltiazem 30 MG tablet Take 30 mg by mouth. (Patient not taking: No sig reported) donepezil 5 MG tablet (Patient not taking: Reported on 10/04/2021) Levothyroxine Sodium (LEVOTHYROXINE PO) Take by mouth at bedtime. Pt unsure of dose (Patient not taking: Reported on 01/27/2022) melatonin 3 MG tablet Take 5 mg by mouth at bedtime. (Patient not taking: Reported on 10/04/2021) pantoprazole [address] tablet DR Take 40 mg by mouth daily. (Patient not taking: No sig reported) sucralfate 1 g tablet as needed. No facility-administered medications prior to visit. Social History Tobacco Use Smoking status: Never Smoker Smokeless tobacco: Never Used Family History Problem Relation Age of Onset Breast Cancer Mother Breast Cancer Sister Breast Cancer Maternal Aunt Prostate Cancer Maternal Uncle Breast Cancer Maternal Aunt Colorectal Cancer Maternal Uncle Breast Cancer Maternal Cousin Breast Cancer Maternal Aunt Negative for problems with anesthesia, surgery, bleeding, or wound healing problems. 1 point each: [] Age 41-60 [] minor surgery planned [] history of prior major surgery (<1 month) [] varicose veins [] history of IBD [] current swollen legs [x] obesity (BMI>25) [] acute NV [] CHF <1 month [] sepsis (<1 month) [] Lung disease including PNA (<1 month) [] Abnormal pulmonary fxn (COPD) [] Currently on bedrest [] OCP or HRT [] or (<1 month) [] Hx unexplained stillborn, spontaneous (>3), premature with toxemia or growth restricted infant 2 points each: [x] Age 60-74 [] Arthroscopic surgery [x] Malignancy hx [x] Major surgery planned (>45 min) [] Laparoscopic surgery (>45 min) [] Patient confined to bed (>72 hrs) []Immobilizing plaster cast [] Central Venous Access 3 points each: [] Age >75 [] Hx DVT/PE [] Family hx of thrombosis [] Factor V Leiden [] Prothrombin 24806T [] Elevated serum homocysteine [] Positive Lupus anticoagulant [] Elevated anticardiolipin antibodies [] HIT [] Other thrombophilia 5 points each: [] Elective major lower arthroplasty [] Hip, pelvis, or leg fx [] stroke (<1 month) [] Multiple Trauma (<1 month) [] Acute spinal cord injury (<1 month) Total Score: 7 Strongly consider chemoprophylaxis if 7 or greater. Physical Examination weight is 69.4 kg (153 lb 1.6 oz). Her oral temperature is 98.4 F (36.9 C). Her blood pressure is 123/60 and her pulse is 62. Her respiration is 16 and oxygen saturation is 95%. Estimated body mass index is 24.34 kg/m as calculated from the following: Height as of 05/13/21: 1.689 m (5' 6.5"). Weight as of this encounter: 69.4 kg (153 lb 1.6 oz). General: NAD, well appearing HEENT: NC/AT, CN 2-12 grossly intact, V1-V3 grossly intact, no LAD/lesions Extremities: Neurovascularly intact Breasts: - Size: 38 B - Symmetry: symmetric - Deformity: surface irregularities, animation deformity, grade 2 capsular contracture, upper pole excess fullness and relative lack of lower pole projection - Ptosis: none - Scars: IM crease Abdomen: - Scars: none - Rectus abdominis muscle: contracts normally bilaterally - Hernia: none - Diastasis: none - Soft tissue: adequate - Obese: no Assessment, Plan I reviewed the planned procedure(s) with the patient as listed above. For each procedure, I reviewed the incisions/scars, duration, recovery time, postoperative restrictions, and follow-up. When applicable, I discussed hospitalization, dressing changes, drains, and donor site morbidity. Risks that were discussed include surgical (bleeding, infection, hematoma, seroma, wound breakdown,need for further surgery, pain, numbness, weakness, asymmetry, cosmetic deformity, injury to structures) and medical (heart attack, pneumonia, DVT/PE, ). When applicable, I discussed partial/complete graft or flap loss. All of the patient's questions/concerns were addressed. The patient understands all of these things, wishes to proceed, and signed the consent form. Implants ordered Pre-op orders completed. [facility] Instructions* Patient Instructions* Belkys Adame RN - 01/24/2022 9:26 AM EDT Images from the original note were not included. Patient Medication Instructions: Here is a list of your current medications we have on file: Current Outpatient Medications Medication Sig Pre op instructions celecoxib 100 MG capsule No dose, route, or frequency recorded. Hold for 10 days prior to surgery cholecalciferol 50 MCG (2000 UT) capsule 2,000 Units, Oral, DAILY Hold for 14 days prior to surgery famotidine 40 MG tablet No dose, route, or frequency recorded. Continue as prescribed gabapentin 300 MG capsule No dose, route, or frequency recorded. Hold morning of surgery Levothyroxine Sodium (LEVOTHYROXINE PO) Oral, DAILY AT BEDTIME, Pt unsure of dose Continue as prescribed Magnesium 100 MG tablet Oral Hold for 14 days prior to surgery Restasis 0.05 % Emulsion ophthalmic suspension No dose, route, or frequency recorded. Continue as prescribed - Only take the above mentioned medications on the morning of surgery with a sip of water. Do not take any of your other medications on the morning of surgery. - If you use inhalers, use all your inhalers on the morning of surgery. - HOLD all herbal medications (fish oil, garlic, glucosamine, etc.) and Multi- Vitamins and Vitamin E 14 days prior to surgery. - HOLD NSAIDs (Advil, Aspirin, Aleve, Celebrex, Diclofenac, Ibuprofen, Meloxicam, Motrin, Naproxen,etc.) for 10 days prior to surgery. You CAN take Tylenol (acetaminophen). -Talk to your doctor about stopping any medicines you take to thin your blood or prevent clots. These medications may need to be continued or the amount adjusted before surgery. If you have a stent, do NOT stop taking your medicines to prevent clots without first talking to your doctor. If you takeaspirin for arthritis pain, ask your doctor for a different pain medicine around the time of your procedure. *Please call the office at [phone] if any cold, flu like or other symptoms of infection are present the week prior to surgery. It may be necessary that you follow up with your primary care provider for further assessment. The presence of infection or illness may delay surgery. Instructions for Care PRIOR to Your Upcoming Surgery: - Starting 5 days before your surgery, shower using chlorhexidine (CHG) soap one time each day for 4 days. Then, shower the night before your surgery and again the morning of your surgery using CHG soap. You will shower with CHG soap a total of 6 times prior to surgery. See "Getting Your Skin Readyfor Surgery" for instructions for proper use of CHG soap. - Do NOT use any makeup, lotion, deodorant, or perfume the morning of surgery. - Do NOT shave near surgical site(s) starting 1 week prior to surgery. - Do NOT eat or drink ANYTHING after midnight or the day of surgery (including antacid tablets, candy, gum, ice, etc.). - You may brush your teeth and rinse your mouth prior to surgery, but do NOT swallow anything. - Do NOT smoke or use ANY nicotine containing products (chew, gum, patch, snuff, vape, etc.) withinthe 4 weeks prior to surgery and the 6 weeks following surgery. Smoking and chewing tobacco can delay wound healing and result in increased risk of infection following surgery. -Talk to your doctor about stopping any medicines you take to thin your blood or prevent clots. These medications may need to be continued or the amount adjusted before surgery. If you have a stent, do NOT stop taking your medicines to prevent clots without first talking to your doctor. If you takeaspirin for arthritis pain, ask your doctor for a different pain medicine around the time of your procedure. What you need to bring to the hospital: 1. A photo ID 2. Insurance Card 3. Co-pay for insurance if applicable 4. A list of ALL MEDICATIONS you are currently taking including the dose and times that you take them. You will be turning this list over to your nurse. 5. Crutches/walker if applicable. 6. CPAP machine if applicable. 7. Loose fitting clothing and preferably a top that closes in the front to wear home following surgery. What to leave at home: 1. ALL valuables, cell phone, wallet, purse 2. ALL jewelry including watches, wedding bands and ANY FORM of piercing. 3. DO NOT wear lotion, makeup, nail taiwanese, contact lens, or perfume/cologne. 4. DO NOT bring actual pill bottles or home medications unless instructed to do so. * If you will be undergoing an outpatient surgery, you MAY NOT use commercial transportation, driveyourself home, or be home alone for 24 hours after your surgical procedure. Instructions for Care FOLLOWING Your Upcoming Surgery *Instructions will also be provided at time of discharge and restrictions may change depending on the procedure performed. IMPLANT BASED RECONSTRUCTION/OTHER BREAST SURGERY: - Wash hands prior to caring for incisions, wounds, and drains. - You will receive instruction regarding incision line care and dressing changes following surgery. - You may shower 48 hours following surgery/procedure unless otherwise instructed - Wear surgical bra at all times (other than bathing) for 2 weeks. After 2 weeks you may transitionto a sports bra during the day and go without at night. Do NOT wear bras with underwire for 3 months. - No lifting/pushing/pulling more than 5 pounds until 4 weeks post op - Do NOT raise elbow(s) above shoulder level until 4 weeks post op - No repetitive arm movements, including installer interior assemblies, for 4 weeks - No bouncing activities for 4 weeks - No formal exercise until 6 weeks post op. General light activity such as walking is encouraged following surgery. - Do NOT apply heat or ice to surgical site(s). Be cautious when using a heating pad for other areas of the body to avoid risk of burn. - Do NOT submerge incisions/drain sites in water until all incisions have completely healed (approximately 6 weeks after surgery). - Do NOT drive while taking narcotic pain medication - If drains present: * Strip and empty each drain twice daily. Record each drain's output in log provided. Please recorddrain output in milliliters (mL). 1 mL is equal to 1 cc (cubic centimeter). * Bring drain output log to every post-op appointment. * Measuring cups and drain output log have been provided for measuring and recording drain output. Call the Plastics and Reconstructive Surgery office at [phone] promptly with any of the following concerns: - Fever of 100.4 degrees Fahrenheit (38 degrees Celsius) or higher. - Pain that is not relieved by your pain medication. - Redness around your incision site. - Increasing swelling or bruising to surgical site. - An increased amount of drainage or drainage that has changed, is cloudy or milky, or has a foul odor. Please call at any time with any other questions or concerns. IMPORTANT INFORMATION REGARDING PRESCRIBED PAIN MEDICATIONS Store your prescribed pain medication in a locked cabinet or in an area only accessible to you. When you no longer need your prescribed pain medication, dispose of it immediately by one of the safe methods listed below: TAKE BACK PROGRAM: A drug take-back program is the best method to dispose of un- needed opioids safely. You can locate the take-back program closest to you at https://takebackday.[employer].gov under the COLLECTION SITE NIGHT CLERK tab. Never dispose of un-needed medications down the sink or toilet. Instead, crush the medication and mix with damp coffee grounds or cat litter, placed in a sealed plastic freezer bag and dispose of in your regular trash. Preventing Deep Vein Thrombosis Healthcare providers use the term venous thromboembolism (VTE) to describe two conditions: deep vein thrombosis (DVT) and pulmonary embolism (PE). They use the term VTE because the two conditions arevery closely related. And because their prevention and treatment are closely related. DVT is a blood clot or thrombus in a deep vein. Most of these clots develop in the leg or thigh. But they may form in a vein in the arm, or other part of the body. Part of the blood clot may separate from the vein. This is called an embolus. It may travel to the lungs and form a pulmonary embolus. This can cut off the flow of blood to a portion of or to the entire lung. A blood clot in the lungs is a medical emergency and may cause . Over time, blood clots can also damage veins. They must be treated right away to prevent problems. Risk factors Anyone can develop a blood clot. But the following things make a blood clot more likely to happen: Being inactive for a long period, such as when you re in the hospital, or traveling by plane or car Injury to a vein from an accident, a broken bone, or surgery Having blood clots in the past or a family history of blood clots Blood clotting disorder Recent surgery Cancer and certain cancer treatments Smoking Other things can also put you at higher risk for a blood clot. They include: Age over 60 years Taking control pills or hormone replacement Having other vein problems, such as varicose veins Being overweight Having a pacemaker or a central venous catheter. They increase the chance of a blood clot forming in an arm. Injection drug use. This also increases the chance of a blood clot forming in an arm. How to prevent DVT Preventing a blood clot means improving blood flow back to your heart. To help prevent a blood clot: Talk with your healthcare provider about a program of regular exercise. If your legs feel swollen or heavy, take a break and sit comfortably or lie down with your feet up. Keep a healthy weight. Quit smoking, if you smoke. Don't sit, stand, or lie down for long periods without moving your legs and feet: When traveling by car, stop often to get out and move around. On long airplane, train, or bus rides, get up and move around when possible. If you can t get up, wiggle your toes and tighten your calves to keep your blood moving, as pictured below. If you need to have surgery, talk with your healthcare provider about a plan to prevent blood clots. If you are in the hospital, your risk for blood clots increases. Your healthcare provider may prescribe blood-thinner medicine (anticoagulant) to help prevent blood clots. Or your healthcare providermay prescribe a sequential compression device (SCD) or intermittent pneumatic compression (IPC). The device has sleeves that fit around your legs. It puts gentle pressure on your legs to help with blood flow and prevent blood clots. Remove the sleeves so that you do not trip or fall when you are walking, like when you use the bathroom or shower. If you need help removing the sleeves, ask the nurse or aid. You may also want to try the following: Call 911 If you have symptoms of a blood clot in your lungs, call 911. The symptoms are: Chest pain Trouble breathing Fast heartbeat Coughing (may cough up blood) Sweating Fainting When to call your healthcare provider If you have symptoms of a blood clot, call your healthcare provider. The symptoms are: Pain Swelling Redness or discoloration in a leg, arm, or other area Date Last Reviewed: 10/14/201519999773-4679 [employer]. [address] [place] [address], [place] [address]. All rights reserved. This information is not intended as a substitute for professional medical care. Always follow yourhealthcare professional's instructions. documented in [facility]04-22-2022 History of Present illness Narrative* Valentina Manuel PA-C - 10/04/2021 1:15 PM EDT Plastic and reconstructive surgery progress note Pt was seen and evaluated by the PAC Reason for Visit H/o right breast cancer 5 years ago S/p bilateral nipple sparing mastectomy and right SLNB. Implant based reconstruction, with lateral displacement of the right implant and subsequent exchange for Allergan textured implants. She states that she has had pain and tightness to her breasts R>L with neuropathic pain since immediately following her surgery. Subjective Presents for follow up to discuss surgical intervention options. The patient is interested in removing her recalled allergan sub-pectoral implants. She states that she has had pain and tightness to her breasts R>L with neuropathic pain since immediately following her surgery. At her previous visit with Dr. Hermosillo options for implant based reconstruction and autologous tissue were discussed. A case request was placed for autologous tissue reconstruction. No c/o. Review of systems: No fevers/chills. No wound symptoms such as redness, swelling, increasing pain, or drainage. Objective Breasts: - Size: 38 B - Symmetry: symmetric - Deformity: surface irregularities, animation deformity, grade 2 capsular contracture, upper pole excess fullness and relative lack of lower pole projection - Ptosis: none - Scars: IM crease Abdomen: - Scars: none - Rectus abdominis muscle: contracts normally bilaterally - Hernia: none - Diastasis: none - Soft tissue: adequate - Obese: no Assessment Doing well Plan - Long discussion for bilateral breast reconstruction options. We discussed removal of her current textured allergan implants, capsulectomy and placement of pec-major back to chest wall. - options for reconstruction include. 1) Placement of new smooth implants in the pre-pec plain with ADM 2) reconstruction with autologous tissue FERMIN flap - For each of the reconstruction methods mentioned above, the risks, benefits, potential complications, alternatives, scarring, and recovery time were discussed in great detail. Specific risks detailed included bleeding, infection, hematoma, seroma, scarring, pain, wound healing complications, flaploss, fat necrosis, capsular contracture, need for implant removal, donor site complications, bulge, hernia, umbilical necrosis, need for urgent reoperation, and need for dressing changes were discussed. - The patient will call the office with a final decision as soon as possible. - Follow up at pre-op A total of 30 minutes of [id number] time were spent in this encounter, of which >50% was spentin counseling and/or coordination of surgical planning and care. documented in this encounterRiver[facility] Institute04-06-2021 NotePatient Outreach (COVAFW) TARIK DUNHAM ([id number]) 1950 F Date Time Provider Department 09/18/20 MELANI WALLS COVLENIN During your visit today, we recorded the following information about you: Allergies As of Date: 09/18/2020 (No Known Allergies) Date Reviewed: 12/09/2019 Reviewed by: Lela Damon RN - Fully Assessed Order(s):SARS-COVID VACCINE 1ST DOSE APPT [[id number]] Order #: [id number] FUTURE SARS-COVID VACCINE 1ST DOSE APPT [[id number]] Order #: [id number] Prescriptions as of 09/18/2020 Sig: ATORVASTATIN 10 MG TABLET Take 1 tablet by mouth once d* SUCRALFATE 1 GRAM TABLET as needed. DILTIAZEM 30 MG TABLET Take 30 mg by mouth four time* PANTOPRAZOLE 40 MG TABLET,DEL* Take 40 mg by mouth once fausto* LACTAID FAST ACT ORAL Take by mouth. CONJUGATED ESTROGENS 0.625 MG* use a small amount to lower v* MAGNESIUM ORAL Take by mouth. COENZYME Q10 10 MG CAPSULE Take by mouth twice daily. * CALCIUM 500 WITH VITAMIN D2 5* Problem List As Of Date 09/18/2020 Noted Resolved DYSPHAGIA [787.2] ESOPHAGEAL REFLUX [K21.9] ABDOMINAL PAIN LLQ [R10.32] DIVERTICULOSIS OF COLON W/O BLEED [K57.30] INT HEMORRHOID W/O COMPL [K64.8] ACUTE GASTRITIS W/O HEMORRHAGE [K29.00] 08/05/2005 Porokeratosis [Q82.8] 03/26/2011 Trigger finger [M65.30] 04/27/2013 Hallux rigidus [M20.20] 05/09/2013 Radiculopathy, cervical region [M54.12] 08/24/2015 Carpal tunnel syndrome, right [G56.01] 07/23/2017 Screening for breast cancer [Z12.39] 11/18/2018 11/18/2018 H/O bilateral mastectomy [Z90.13] 11/18/2018 Encounter Status:Closed by BEBETO PRODUSER on 09/21/20[facility] [id number] NoteHNO ID: [id number] Author: Azucena Vieira APRN Service: ? Author Type: Nurse Practitioner Type: Progress Notes Filed: 02/13/2020 1:52 PM Note Text: Results reviewed by Dr. Arauz. Azucena Vieira APRNHu Hu Kam Memorial [id number] History of Past illness Narrative* Problem Noted Date Resolved Date Screening for breast cancer 11/18/2018 060 11/2018 documented as of this encounter (statuses as of 06/16/2022) [facility] History of Past illness Narrative* Problem Noted Date Resolved Date Screening for breast cancer 11/18/20180 11/2018 Carpal tunnel syndrome, right 07/23/2017 Radiculopathy, cervical region 08/24/2015 0 06/27/2022 Hallux rigidus 05/09/2013 06/27/2022 Trigger finger 04/27/2013 06/27/2022 Porokeratosis 03/26/2011 06/27/2022 Acute gastritis without mention of hemorrhage 06/27/2022 Abdominal pain, left lower quadrant 06/27/2022 Last Assessment & Plan: Planning to see local GI Assessment: active PLAN: GI f/u Diverticulosis of colon (without mention of hemo rrhage) 06/27/2022 Internal hemorrhoids without mention of complica tion 06/27/2022 documented as of this encounter (statuses as of 06/27/2022) [facility] History of Past illness Narrative* Problem Noted Date Diagnosed Date Resolved Date Screening for breast cancer 11/18/2018 11/18/2018 Carpal tunnel syndrome, right 07/23/2017 06/27/2022 Radiculopathy, cervical region 08/24/2015 06/27/2022 Hallux rigidus 05/09/2013 06/27/2022 Trigger finger 04/27/2013 06/27/2022 Porokeratosis 03/26/2011 06/27/2022 Acute gastritis without mention of hemorrhage 08/05/19 06 06/27/2022 Dysphagia 12/29/2022 Abdominal pain, left lower quadrant 06/27/2022 Last Assessment & Plan: Planning to see local GI Assessment: active PLAN: GI f/u Diverticulosis of colon (wit hout mention of hemorrhage) 06/27/2022 Internal hemorrhoids without mention of complication 06/27/2022 documented as of this encounter (statuses as of 12/29/2022) [facility] Author Elzbieta Roblero [facility] Note Date/Time March 14, 2025 8:30am [facility] Medical Records Department [address] [place] [address] Anesthesia Postop Eval I 03/14/25811 MR#: [id number] Acct: [id number] Name: TARIK DUNHAM Rep #:[id number] : 1950 75 From: Elzbieta Roblero CRNA PCP: Dr. Garo Steele MD Status:R [facility] Y Race: C Location: [place] [address] Anesthesia: Postop Eval I Current Vital Signs Temperature: 98.7 F Pulse Rate: 62 Blood Pressure: 141/68 Respiratory Rate: 14 Pulse Ox: 97 Oxygen Delivery Method: Room Air Assessment Airway patent: Yes Spontaneous unlabored respirations: Yes Mental status: Awake nausea: No Vomiting: No Anesthesia Complication: No Fluid Hydration Crystalloid volume administer (ml): 500 Total IV fluid infused: 500 Progress Note Anesthesia document: Postop Eval 1 completed: Yes 03/14/25829 <Electronically signed by Elzbieta Roblero CR NA> Date _ Elzbieta Roblero COMMUNITY RELATIONS ASSISTANT Cosigner Signature: Date CC: ~ Signed [facility] Work Phone: Consult note Author Aaron Malone [facility] Note Date/Time March 14, 2025 9:31am [facility] Medical Records Department [address] [place] [address] Anesthesia Postop Eval II 03/14/25912 MR#: [id number] Acct: [id number] Name: TARIK DUNHAM Rep #:[id number] : 1950 75 From: Aaron Malone MD PCP: Dr. Garo Steele MD Status:R [facility] Y Race: C Location: [place] [address] Anesthesia Postop Eval I Sum Postop Eval Completion status Anesthesia document: Postop Eval 1 completed: Yes Anesthesia Postop Eval I Summary Anesthesia Postop Eval I Summary: Anesthesia Postop Eval I: Assessment Summary Airway patent Yes 03/14/25 08:14 COMMUNITY RELATIONS ASSISTANT.HBARR Spontaneous unlabored Yes 03/14/25 08:14 COMMUNITY RELATIONS ASSISTANT.HBARR respirations Mental status Awake 03/14/25 08:14 COMMUNITY RELATIONS ASSISTANT.HBARR nausea No 03/14/25 08:14 COMMUNITY RELATIONS ASSISTANT.HBARR Vomiting No 03/14/25 08:14 COMMUNITY RELATIONS ASSISTANT.HBARR Anesthesia Postop Eval I: Fluid Summary Crystalloid volume administer 500 03/14/25 08:14 COMMUNITY RELATIONS ASSISTANT.HBARR (ml) Colloids volume administered ( ml) Blood Product volume administered (ml) Total IV fluid infused 500 03/14/25 08:14 COMMUNITY RELATIONS ASSISTANT.HBARR Anesthesia Postop Eval I: Summary Notes Anesthesia Complication No 03/14/25 08:14 COMMUNITY RELATIONS ASSISTANT.HBARR Anesthesia Complication Comment: Post-operative progress note Anesthesia: Postop Eval II Evaluation Mental status: Awake and Calm Pain Level: 1 nausea: No Vomiting: No Complications Anesthesia Complication: No 03/14/25 0913 <Electronically signed by Aaron mcdonnell MD> Date _ Aaron Malone MD Cosigner Signature: Date CC: ~ Signed [facility] Work Phone: Evaluation noteNo assessment information available [facility] Work Phone: Evaluation note* Diagnosis H/O bilateral mastectomy- Primary Acquired absence of breast and nipple H/O bilateral mastectomy- Primary Acquired absence of breast and nipple H/O bilateral mastectomy Acquired absence of breast and nipple [facility] Diagnosis Onset Date Resolution Status Hypothyroidism acute Osteoarthritis acute [facility] Work Phone: Evaluation note* Diagnosis Onset Date Resolution Status Hypothyroidism acute Osteoarthritis acute Encounter to establish care noneactive Pre-op evaluation noneactive [facility] Work Phone: Evaluation note* Diagnosis Onset Date Resolution Status Hypothyroidism acute Osteoarthritis acute Encounter to establish care noneactive Pre-op evaluation noneactive Hypothyroidism acute Lymphadenopathy of left cervical region acute Multiple thyroid nodules acu te [facility] Work Phone: Evaluation note* Diagnosis H/O bilateral mastectomy- Primary Acquired absence of breast and nipple Pre-op exam- Primary Preoperative examination, unspecified Pre-op exam Preoperative examination, unspecified [facility] Diagnosis H/O bilateral mastectomy- Primary Acquired absence of breast and nipple Pre-op exam Preoperative examination, unspecified Acute post-operative pain documented [facility] encounter [facility]* Diagnosis Encounter for follow-up- Primary [facility]* Diagnosis H/O bilateral mastectomy- Primary Acquired absence of breast and nipple documented [facility]* Diagnosis H/O bilateral mastectomy- Primary Acquired absence of breast and nipple [facility] Diagnosis Onset Date Resolution Status Hypothyroidism acute Lymphadenopathy of left cervical region acute Multiple thyroid nodules acu te [facility] Work Phone: Evaluation note* Diagnosis H/O bilateral mastectomy- Primary Acquired absence of breast and nipple [facility]* Diagnosis Hyperlipidemia, unspecified hyperlipidemia type- Primary Neuropathic pain, leg, right Osteopenia of multiple sites Mild memory disturbance Memory loss History of breast cancer Personal history of malignant neoplasm of breast [facility]* Diagnosis Right knee pain, unspecified chronicity- Primary documented in this encounter [facility] note* Diagnosis Onset Date Resolution Status Hyperlipidemia chronic [facility] Work Phone: Evaluation note* Diagnosis Primary osteoarthritis of right knee- Primary documented in this encounter [facility] note* Diagnosis Medicare annual wellness visit, subsequent- Primary Routine general medical examination at a health care facility Neuropathic pain, leg, right Other low back pain Primary osteoarthritis of right knee Primary localized osteoarthrosis, lower leg Hyperlipidemia, unspecified hyperlipidemia type History of breast cancer Personal history of malignant neoplasm of breast Multiple thyroid nodules Nontoxic multinodular goiter documented in this encounter [facility] note* Diagnosis Primary osteoarthritis of right knee documented in this encounter [facility] note* Diagnosis Right knee pain, unspecified chronicity documented in this encounter [facility] note* Diagnosis H/O bilateral mastectomy Acquired absence of breast and nipple History of right breast cancer [facility]* Diagnosis H/O bilateral mastectomy Acquired absence of breast and nipple History of right breast cancer [facility]* Diagnosis H/O bilateral mastectomy- Primary Acquired absence of breast and nipple History of right breast cancer H/O bilateral mastectomy Acquired absence of breast and nipple History of right breast cancer H/O bilateral mastectomy Acquired absence of breast and nipple History of right breast cancer documented [facility] this [facility]* Diagnosis Primary osteoarthritis of right knee- Primary S/P total knee arthroplasty, left [facility] Diagnosis S/P total knee arthroplasty, left [facility]* Diagnosis S/P total knee arthroplasty, left- Primary [facility]* Diagnosis S/P total knee arthroplasty, right- Primary [facility]* Diagnosis S/P total knee arthroplasty, right- Primary Primary osteoarthritis of right knee S/P total knee arthroplasty, left [facility] Diagnosis S/P total knee arthroplasty, right [facility]* Diagnosis Status post total right knee replacement- Primary documented [facility]* Diagnosis Primary osteoarthritis of right knee S/P total knee arthroplasty, right [facility]* Diagnosis Status post total right knee replacement documented [facility]* Diagnosis Hyperlipidemia, unspecified Family history of ischemic heart disease and other diseases of the circulatory system documented in this encounter [facility] Work Phone: Evaluation note* Diagnosis Neuroma- Primary Other benign neoplasm of connective and other soft tissue of unspecified site Neuroma Other benign neoplasm of connective and other soft tissue of unspecified site [facility] S/P total knee arthroplasty, right- Primary Left hip pain Pain in joint, pelvic region and thigh [facility] Diagnosis Left hip pain Pain in joint, pelvic region and thigh documented [facility]* Diagnosis S/P total knee arthroplasty, right documented [facility]* Diagnosis Left hip pain- Primary Pain in joint, pelvic region and thigh Left hip pain Pain in joint, pelvic region and thigh [facility]* Diagnosis Pain- Primary Generalized pain Headache, unspecified headache type [facility]* Diagnosis Medicare annual wellness visit, subsequent- Primary Routine general medical examination at a health care facility Contusion of left chest wall, subsequent encounter Contusion of left shoulder, subsequent encounter Closed head injury, subsequent encounter Fall, subsequent encounter Chest pain, unspecified type Screening for depression Encounter for screening examination for other mental health and behavioral disorders documented in this encounter [facility] note* Diagnosis Left hip pain- Primary Pain in joint, pelvic region and thigh Left hip pain Pain in joint, pelvic region and thigh documented in this encounter [facility] note* Diagnosis Chronic pain of both shoulders- Primary Pain in joint, shoulder region Primary osteoarthritis of right knee Primary localized osteoarthrosis, lower leg Carpal tunnel syndrome on right Carpal tunnel syndrome Neuropathic pain, leg, right Hyperlipidemia, unspecified hyperlipidemia type Unilateral primary osteoarthritis, left hip documented in this encounter [facility] note* Diagnosis Chronic pain of both shoulders Pain in joint, shoulder region documented in this encounter [facility] note* Diagnosis Unilateral primary osteoarthritis, left hip- Primary H/O bilateral mastectomy Acquired absence of breast and nipple documented in this encounter [facility] note* Diagnosis 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 H/O bilateral mastectomy Acquired absence of breast and nipple documented in this encounter [facility] note* Diagnosis Onset Date Resolution Status Admit Date Hyperlipidemia chronic November 14, 2024 8:03am [facility] Work Phone: Evaluation note* Diagnosis Onset Date Resolution Status Admit Date Hyperlipidemia chronic November 14, 2024 8:03am Difficulty swallowing acute Nov 8:35am Globus sensation acute November 8:35am Throat clearing acute November 14, 2024 8:35am [facility] Work Phone: Evaluation note* Diagnosis Left hip pain- Primary Pain in joint, pelvic region and thigh Arthritis of left hip documented in this encounter [facility] note* Diagnosis Left hip pain Pain in joint, pelvic region and thigh documented in this encounter [facility] Discharge instructionsAdditional Instructions Operations Performed: Mucous Cyst Excision Instructions for My Care at Home or Healthcare Facility The following instructions will help you know what to expect in the days following surgery. These are general instructions. Your surgeon and therapist may give you special instructions, which vary to some degree based on your specific procedure -- follow those as directed. Do not, however, hesitate to call if you have any questions or concerns. Splint Care/Dressing Care/Wound Care Keep the dressing in place with the splint in place until your follow up on Thursday. You need to keep the joint in extension for 1 month with the extension splint. If the dressing feels too tight after you get home, it is ok to gently pull on the dressing to stretch it out/loosen it. Avoid smoking or other tobacco products. Smoking tobacco impairs wound healing and increases the risks of post-operative complications. Tape over your incisions (if present) will fall off on its own Activities For the first 4 weeks after surgery, try to balance your activity, allowing time for rest. Avoid lifting, pushing, or pulling anything over [address] or operate heavy machinery within 24 hrs of surgery or while taking narcotic pain medication. Pain Control/Medications If you received an anesthetic block, your hand or arm may be numb for several hours. You will be discharged to home with medications, including an oral pain medication (analgesic). Rest and elevation are still one of the most important factors for pain control. Take your pain medication as needed, but do not wait for the pain to become out of control. For severe pain, you may take prescription pain medication as directed, but please note that this may also contain Tylenol (e.g. Percocet). Do not take more than 4000mg of Tylenol (acetaminophen) from all sources daily. Pain medication may cause some lethargy, nausea, and or constipation. You should not drive/operate dangerous machinery while taking these medications. If these or other symptoms become significantly problematic, please your surgeon's office. If prescribed oral antibiotics (Keflex, Clindamycin, or others), please take prescription for full duration as instructed. You should not have any pills remaining once completed (refills are written for your convenience should the course need to be extended, but generally they are not required). Diet (what I can eat): Resume normal diet Follow up You will be seen (most likely) 1 to 2 weeks after surgery depending on the procedure. Follow-up appointment reminders: (A list of any scheduled appointments is at the end of this document) At your earliest convenience, please call [phone] to confirm/schedule a follow-up appointment with Us in in clinic on Thursday. When to call your surgeon: If any signs of surgical site infection develop: redness, pus, pain, increased swelling or foul odor at the incision site, fever, cold and clammy skin, or confusion. Consistent temperature above 101 F (38.3 C). The affected area gets swollen or much more painful. You have excessive bleeding from surgical site (soaking through). If you experience difficulty breathing and/or shortness of breath, seek immediate medical attention. If experiencing any of the above complications or if you have any questions, [phone] Instructions* Attachments The following attachments cannot be sent through Care Everywhere. * Active Range of Motion Exercises, Knees and Ankles (Slovak) * Exercise Band Exercises for the Knee and Ankle (Slovak) * Standing Exercises (Slovak) [facility] Author Jimmie [facility] Note Date/Time March 14, 2025 7:35am [facility] Medical Records Department [address] [place] [address] Progress Note - Surgery 03/14/2534 MR#: [id number] Acct: [id number] Name: TARIK DUNHAM Rep #:[id number] : 1950 75 From: Jimmie Newell MD PCP: Dr. Garo Steele MD Status:R [facility] Location: [place] [address] Subjective Subjective Patient has some baseline collateral ligament and slight DIP droop (mallet) in the left index finger. I discussed this with her in preoperative holding and she understands the baseline deformity and plan for incision over DIP joint with involution of the cyst over time after the underlying stock/osteophytes are debrided. She understands risks, benefits, and alternatives to the procedure. Objective Data Objective Data Vital Signs: Vital Signs Temp Pulse Resp BP Pulse Ox O2 Del Method 97.5 F L 57 L 16 121/77 H 100 Room Air 03/14/25 07:31 03/14/25 07:31 03/14/25 07:31 03/14/25 07:31 03/14/25 07:31 03/14/25 07:31 Oxygen Delivery Method Room Air Weight: 149 lb Body Mass Index (BMI) 24.7 03/14/25 0735 <Electronically signed by Jimmie Newell MD> Cosigner Signature (if applicable): CC: ~ Signed [facility] Work Phone: Progress note Author Jimmie Newell [facility] Note Date/Time March 24, 2025 1 0:42am [facility] [address], [address] [place], [place] [address] OFFICE VISIT Date of Service: 03/24/25 MR#: [id number] Acct: [id number] Name: TARIK DUNHAM Rep #: [id number] : 1950 Provider: Dr. Víctor Newell MD Age/Sex: 75/F Location: [facility] Status: Signed Intake Vital Signs 3 03/17/25 10:23 03/24/25 10:27 Height 5 ft 5 in 5 ft 5 in BP 128/63 H 119/76 Blood Pressure Location Lt brachial Lt brachial Position Sitting Sitting Respiration 18 18 Pulse 59 L 63 Temp 98.1 F 99.0 F Temp Source Oral Temporal Pulse Oximetry (%) 96 96 Oxygen Delivery Method room air room air Intake Visit Reasons: 1 W FU Chief Complaint: cyst on left index finger post op Is patient in pain?: No Allergies Iodinated Contrast Media (Iodinated Contrast Media - IV Dye) Allergy (Verified 03/24/25 10:28) Itching rosuvastatin Adverse Reaction (Verified 03/24/25 10:28) Myalgia Have you fallen in the past year?: No Subjective Details: HPI from 03/14/25: TARIK DUNHAM, is a 75 F who was seen in consultation for mucous cyst on the left index finger. The cyst has been present for approximately three months and is associated with drainage of a sticky substance, particularly when wet with associated swelling, soreness. The patientinitially thought it was a wart and has been applying a topical treatment for 10days as advised. The patient also reports a history of tendon rupture in the right hand, leading to numbness and pain, which she suspects might be related to nerve damage or carpal tunnel syndrome. She experiences numbness in the fingertips and uses gabapentin at night for relief. Since her previous visit she reports no changes in her medications, health status. Recently her cyst was swelling and causing achiness she states she "popped" it and has some drainage again. Denies redness, fever, chills, new numbness, tingling. Date of Procedure: 03/14/25 Pre-Operative Diagnosis: Left index finger mucous cyst Post-Operative Diagnosis: Same Surgery/Procedure Performed: 1) Excision left index finger mucous cyst Current encounter 03/24/2025: She is postop day 10 and continues to do well. She is doing gentle range of motion with her PIP joint. She denies incisional drainage, fever, chills, new numbness, weakness, tingling. Discussed pathology findings. The case was examined at [facility] by Dr. Butler (#[id number]) and the following diagnosis was rendered. A. Skin, left index finger, ?mucus cyst?, biopsy: Ganglion cyst Objective Details: Left upper extremity: Incision is intact, sutures intact. Cyst is involuted, no drainage. Expected postoperative swelling. Collateral ligament laxity present prior to surgery, PIP joint stiffness. Flexes and extends MCP, PIP, DIP. Hyperextends, no mallet or jersey finger. Sensation intact to light touch Capillary refill less than 2 seconds, skin is pink and warm. Coding Level of Care Code Global Post Op Diagnoses Mucous cyst of digit of left hand M67.442 [facility] Medical History History of Kolb's esophagus Back problem Tinnitus Wears glasses Cancer High cholesterol History of hiatal hernia CPAP (continuous positive airway pressure) dependence Non-smoker Leg cramps History of echocardiogram History of stress test Cardiology follow-up encounter Hyperlipidemia Hypothyroidism GERD (gastroesophageal reflux disease) Osteopenia Osteoarthritis Neuropathy Breast cancer Arthritis Surgical History Hx of colonoscopy History of esophagogastroduodenoscopy (EGD) Hx of right cataract extraction Hx of left cataract extraction History of right knee joint replacement History of tonsillectomy History of surgery on right wrist History of bilateral carpal tunnel release History of foot surgery History of shoulder surgery H/O bilateral mastectomy History of hysterectomy Family History Mother Breast cancer Father Myocardial infarction, Onset Age: 42 Heart disease Hypertension High cholesterol Grandmother CVA (cerebral vascular accident) Sister Breast cancer Aunt Breast cancer Social History Smoking Status: Never smoker alcohol intake: current alcohol intake frequency: a few times a week substance use type: does not use caffeine: Yes Type: coffee Number of servings: 6 what type of physical activity do you participate in: none additional social history: pt denies vaping, denies marijuana use, denies edibles pt denies blood clots Assessment and Plan (No Qualifiers) Assessment and Plan (1) Mucous cyst of digit of left hand: Status: Acute Plan: Expected course of healing. Left sutures in place. Pathology discussed and copygiven to patient. Continue extension splinting. Patient was encouraged to do forced flexion with PIP joint to prevent stiffness. Continue wound precautions and lifting restrictions. Follow-up Wednesday 03/[address] Newell evaluated the patient as well and agrees with plan. 03/24/25 1537 <Electronically signed by Jimmie Newell MD> Date _ Jimmie Newell MD 03/24/25 1118<Electronically signed by Jessy LOPEZ> Cosigner Signature: Date (if applicable) Jessy Roman CC: ~ [facility] Work Phone: Reason for referral (narrative)* Outpatient Procedure (Routine) - New Request Specialty Diagnoses / Procedures Referred By Corinne vines Referred To [facility] Diagnoses Chest pain, unspecified type Procedures ECG COMPLETE ECG ROUTINE ECG W/LEAST 12 LDS W/I&R Garo Steele MD [address] [place] [address] [facility] [address] [place] [address] Referral ID Status Reason Start Date Expiration Date Visits Requested Visits Authorized [id number] New Request Auto-Generat ed Referral 04/15/2024 04/15/2025 1 1 [facility]ative)No reason for referral information [facility] Work Phone: Reason for visit Narrative* Auth/Cert Specialty Diagnoses / Procedures Referred By Corinne vines Referred To Contact Diagnoses Pre-op exam Pre-op exam [Z01.818] Procedures CO REMOVAL INTACT BREAST IMPLANT CO AALIYAH-IMPLANT CAPSULECTOMY BREAST COMPLETE CO INSERTION BREAST IMPLANT SAME DAY OF MASTECTOMY CO IMPLNT BIO IMPLNT FOR SOFT TISSUE REINFORCEMENT REMOVAL BREAST IMPLANT INTACT CAPSULECTOMY BREAST INSERTION BREAST PROSTHESIS IMMEDIATE IMPLANTATION BIOLOGIC IMPLANT FOR SOFT TISSUE REINFORCEMENT ADD-ON PX Abner Hermosillo MD [address] [facility] [address] [place] [address] [facility] [address] [place] [address] Referral ID Status Reason Start Date Expiration Date Visits Re quested Visits Authorized [id number] 1 1 [facility] for [facility] N[facility]* Diagnostic Procedure Only (Routine) - Closed Specialty Diagnoses / Procedures Referred By Corinne vines Referred To Contact [facility] Diagnoses Chronic pain of both shoulders Procedures XR SHOULDER GENERAL 3V OR MORE AP/TRUE AP/OTHER RIGHT RADEX SHOULDER COMPLETE MINIMUM 2 VIEWS Garo Steele MD [address] [place] [address] Phone: tel: fax: [place] [phone] Referral ID Status Reason Start Date Expiration Date V isits Requested Visits Authorized [id number] Closed Auto-Generate d Referral 10/13/2024 11/12/2025 1 1 [facility] Summary Purpose Family History No Family History Records Found Relationship Condition Age at Onset Recorded Date/T sheryl mother Malignant neoplasm of breast Unknown father Myocardial infarction 42 grandmother Cerebrovascular accident (CVA) Unknown Relationship Condition Age at Onset Recorded Date/T sheryl mother Malignant neoplasm of breast Unknown father Myocardial infarction 42 Cardiac disease Unknown Hypertension Unknown High blood cholesterol Unknown grandmother Cerebrovascular accident (CVA) Unknown sister Malignant neoplasm of breast Unknown aunt Malignant neoplasm of breast Unknown Advance Directives No Advanced Directives Records Found Advance Directive Response Recorded Date/ Time Advance Directives Yes [address] [address], 201 4 12:38pm Living Will Yes December 15, 2013 1 2:38pm Power of White Metal Caster Yes December 15, 2013 12:38pm Advance Directive Response Recorded Date/ Time Advance Directives Yes October 16, 2021 11:19am Living Will Yes October 16, 2021 11 :19am Power of White Metal Caster Yes October 16, 2021 11:19am Advance Directive Response Recorded Date/ Time Advance Directives Yes October 16, 2021 10:19am Living Will Yes October 16, 2021 10 :19am Power of White Metal Caster Yes October 16, 2021 10:19am Latest Code Status on File Code Status Date Activated Date Inactivated Comments Full Code 03/24/2023 2:33 PM 03/25/2023 1:37 PM Code Status History Code Status Date Activated Date Inactivated Comments Full Code 03/24/2023 6:14 AM 03/24/2023 2:33 PM Latest Code Status on File Code Status Date Activated Date Inactivated Comments Full Code 03/24/2023 2:33 PM 03/25/2023 1:37 PM Code Status History Code Status Date Activated Date Inactivated Comments Full Code 03/24/2023 6:14 AM 03/24/2023 2:33 PM Date Activated Date Inactivated Comments 03/24/2023 2:33 PM 03/25/2023 1:37 PM Date Activated Date Inactivated Comments 03/24/2023 6:14 AM 03/24/2023 2:33 PM Documents on File Type Date Recorded Patient Tire Retreader Expl anation Advance Directive(s) 01/28/2023 9:15 AM Documents on File Type Date Recorded 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 Yes October 16, 2021 11:19am Advance Directives Yes October 16, 2021 11:19am Advance Directive Response Recorded Date/ Time Living Will Yes October 16, 2021 11 :19am Do you have a Healthcare Power of White Metal Caster? Yes October 16, 2021 11:19am Do you have a Healthcare Power of White Metal Caster? Yes December 08, 2024 9:04am Advance Directives Yes October 16, 2021 11:19am Advance Directive Response Recorded Date/ Time Do you have a Healthcare Power of White Metal Caster? Yes December 08, 2024 9:04am Do you have a Healthcare Power of White Metal Caster? Yes February 28, 2025 8:58am Advance Directives Yes October 16, 2021 11:19am Advance Directive Response Recorded Date/ Time Do you have a Healthcare Power of White Metal Caster? 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 CARE, PT NEEDS NPP Localized swelling, mass and lump, neck Thyroid Nodule/US 11/25/21 [facility] LEFT NECK MASS Reason for Visit Hypothyroidism Osteoarthritis Encounter to establish care Pre-op evaluation Hypothyroidism Lymphadenopathy of left cervical region Multiple thyroid nodules Chief Complaint Thyroid Nodule/US [facility] LEFT NECK MASS INJ EXT MUSC,FASC,TEND RT THUMB/RX HERE Reason for Visit Hypothyroidism Lymphadenopathy of left cervical region Multiple thyroid nodules Chief Complaint SPONT RUPTURE EXTENS OR TENDON R HAND/RX HERE Chief Complaint REFLEX SYMPATHETIC D YSTROPHY. R ANKLE/FOOT RX HERE EST CAD CAD Reason for Visit Hyperlipidemia Chief Complaint REFLEX SYMPATHETIC D YSTROPHY. R ANKLE/FOOT RX HERE EST CAD CAD MULTINODULAR GOITER F/U INSTABILITY RT ANKLE JOINT / RX HERE Reason for Visit Hyperlipidemia Chief Complaint EST CAD CAD MULTINODULAR GOITER F/U INSTABILITY RT ANKLE JOINT / RX HERE Reason for Visit Hyperlipidemia Chief Complaint SP TOTAL RT KNEE / R X HERE Chief Complaint Admit Date OA L HIP, RX HERE November 02, 2024 3:30p m 1 Y FU November 14, 2024 8:03a m Reason for Visit Admit Date Hyperlipidemia November 14, 2024 8:03a m Chief Complaint Admit Date OA L HIP, RX HERE November 02, 2024 3:30p m 1 Y FU November 14, 2024 8:03a m Dysphagia November 14, 2024 8:35a m Reason for Visit Admit Date Hyperlipidemia November 14, 2024 8:03a m Difficulty swallowing November 14, 2024 8:3 5am Globus sensation November 14, 2024 8:35a m Throat clearing November 14, 2024 8:35a m Chief Complaint Admit Date 1 Y FU November 14, 2024 8:03a m Dysphagia November 14, 2024 8:35a m OA L HIP, RX HERE November 30, 2024 10:0 0am Reason for Visit Admit Date Hyperlipidemia November 14, 2024 8:03a m Difficulty swallowing November 14, 2024 8:3 5am Globus sensation November 14, 2024 8:35a m Throat clearing November 14, 2024 8:35a m Chest pain December 09, 2024 10:2 6am Difficulty swallowing December 09, 2024 10 :26am Globus sensation December 09, 2024 10:2 6am Lymphadenopathy of left cervical region December 09, 2024 10:26am Chief Complaint Admit Date 1 Y FU November 14, 2024 8:03a m Dysphagia November 14, 2024 8:35a m OA L HIP, RX HERE December 12, 2024 10:0 0am Chief Complaint Admit Date 1 Y FU November 14, 2024 8:03a m Dysphagia November 14, 2024 8:35a m OA L HIP, RX HERE December 12, 2024 10:0 0am DIFFICULTY SWALLOWING December 29, 2024 12 :51pm Test Result January 03, 2025 1:07 pm Chief Complaint Admit Date 1 Y FU November 14, 2024 8:03a m Dysphagia November 14, 2024 8:35a m OA L HIP, RX HERE December 12, 2024 10:0 0am DIFFICULTY SWALLOWING December 29, 2024 12 :51pm Test Result January 03, 2025 1:07 pm 1 M FU January 23, 2025 8: 04am Reason for Visit Admit Date Hyperlipidemia November 14, 2024 8:03a m Globus sensation November 14, 2024 8:35a m Difficulty swallowing November 14, 2024 8:3 5am Throat clearing November 14, 2024 8:35a m Chest pain December 09, 2024 10:2 6am Globus sensation December 09, 2024 10:2 6am Lymphadenopathy of left cervical region December 09, 2024 10:26am Difficulty swallowing December 09, 2024 10 :26am 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 Edwige soto 2024 1:07pm Difficulty swallowing January 03, 2025 1: 07pm Throat clearing January 03, 2025 1:07 pm Chief Complaint Admit Date 1 Y FU November 14, 2024 8:03a m Dysphagia November 14, 2024 8:35a m OA L HIP, RX HERE December 12, 2024 10:0 0am DIFFICULTY SWALLOWING December 29, 2024 12 :51pm Test Result January 03, 2025 1:07 pm 1 M FU January 23, 2025 8: 04am CYST ON FINGER January 31, 2025 1: 49pm room 12 January 31, 2025 2: 21pm Reason for Visit Admit Date Hyperlipidemia November 14, 2024 8:03a m Globus sensation November 14, 2024 8:35a m Difficulty swallowing November 14, 2024 8:3 5am Throat clearing November 14, 2024 8:35a m Chest pain December 09, 2024 10:2 6am Globus sensation December 09, 2024 10:2 6am Lymphadenopathy of left cervical region December 09, 2024 10:26am Difficulty swallowing December 09, 2024 10 :26am 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 Edwgie soto 2024 1:07pm Difficulty swallowing January 03, 2025 1: 07pm Throat clearing January 03, 2025 1:07 pm Globus sensation January 23, 2025 8: 04am 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 A ugust 2024 8:04am GERD (gastroesophageal reflux disease) A ugust 2024 8:04am Throat clearing January 23, 2025 8: 04am Chief Complaint Admit Date OA L HIP, RX HERE December 12, 2024 10:0 0am DIFFICULTY SWALLOWING December 29, 2024 12 :51pm Test Result January 03, 2025 1:07 pm 1 M FU January 23, 2025 8: 04am CYST ON FINGER January 31, 2025 1: 49pm room 12 January 31, 2025 2: 21pm Excision mucous cyst left index finger S eptember 2024 5:59am Excision mucous cyst left index finger S eptember 2024 7:23am Reason for Visit Admit Date Chest pain December 09, 2024 10:2 6am Globus sensation December 09, 2024 10:2 6am Lymphadenopathy of left cervical region December 09, 2024 10:26am Difficulty swallowing December 09, 2024 10 :26am 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 Edwige soto 2024 1:07pm Difficulty swallowing January 03, 2025 1: 07pm Throat clearing January 03, 2025 1:07 pm Globus sensation January 23, 2025 8: 04am 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 A ugust 2024 8:04am GERD (gastroesophageal reflux disease) A ugust 2024 8:04am Throat clearing January 23, 2025 8: 04am Mucous cyst of digit of left hand January 31, 2025 1:49pm Mucous cyst of digit of left hand Septem abbey 2024 5:59am Chief Complaint Admit Date OA L HIP, RX HERE December 12, 2024 10:0 0am DIFFICULTY SWALLOWING December 29, 2024 12 :51pm Test Result January 03, 2025 1:07 pm 1 M FU January 23, 2025 8: 04am CYST ON FINGER January 31, 2025 1: 49pm room 12 January 31, 2025 2: 21pm Excision mucous cyst left index finger S eptember 2024 5:59am Excision mucous cyst left index finger S eptember 2024 7:23am post op March 17, 2025 10 :13am Reason for Visit Admit Date Chest pain December 09, 2024 10:2 6am Globus sensation December 09, 2024 10:2 6am Lymphadenopathy of left cervical region December 09, 2024 10:26am Difficulty swallowing December 09, 2024 10 :26am 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 Edwige soto 2024 1:07pm Difficulty swallowing January 03, 2025 1: 07pm Throat clearing January 03, 2025 1:07 pm Globus sensation January 23, 2025 8: 04am 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 A ugust 2024 8:04am GERD (gastroesophageal reflux disease) A ugust 2024 8:04am Throat clearing January 23, 2025 8: 04am Mucous cyst of digit of left hand January 31, 2025 1:49pm Mucous cyst of digit of left hand Septem 2024 5:59am Mucous cyst of digit of left hand Octobe r 2024 10:13am Chief Complaint Admit Date OA L HIP, RX HERE December 12, 2024 10:0 0am DIFFICULTY SWALLOWING December 29, 2024 12 :51pm Test Result January 03, 2025 1:07 pm 1 M FU January 23, 2025 8: 04am CYST ON FINGER January 31, 2025 1: 49pm room 12 January 31, 2025 2: 21pm Excision mucous cyst left index finger S eptember 2024 5:59am Excision mucous cyst left index finger S eptember 2024 7:23am post op March 17, 2025 10 :13am 1 W FU March 24, 2025 1 0:01am SUTURE REMOVAL March 28, 2025 1 :37pm Reason for Visit Admit Date 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 J brittany 2024 1:07pm Difficulty swallowing January 03, 2025 1: 07pm Throat clearing January 03, 2025 1:07 pm Globus sensation January 23, 2025 8: 04am 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 A ugust 2024 8:04am GERD (gastroesophageal reflux disease) A ugust 2024 8:04am Throat clearing January 23, 2025 8: 04am Mucous cyst of digit of left hand January 31, 2025 1:49pm Mucous cyst of digit of left hand Septem 2024 5:59am Mucous cyst of digit of left hand Octobe r 2024 10:13am Mucous cyst of digit of left hand Octobe r 2024 10:01am Mucous cyst of digit of left hand Octobe r 2024 1:37pm Reason for Referral Specialty Diagnoses / Procedures Referred By Corinne vines Referred To Contact Diagnoses Pre-op exam Valentina Manuel PA-C [address] [place] [address] Referral ID Status Reason Start Date Expiration Date V isits Requested Visits Authorized [id number] New Request 01/27/2022 02/21/2023 1 1 Specialty Diagnoses / Procedures Referred By Contac t Referred To Contact Diagnoses Pre-op exam Procedures NO MECHANICAL DVT PROPHYLAXIS Valentina Manuel PA-C [address] [place] [address] Referral ID Status Reason Start Date Expiration Date V isits Requested Visits Authorized [id number] New Request 02/11/2022 03/08/2023 1 1 Specialty Diagnoses / Procedures Referred By Contac t Referred To Contact Diagnoses Pre-op exam Procedures LOW RISK - NO PHARMACOLOGICAL DVT PROPHYLAXIS Valentina Manuel PA-C [address] [place] [address] Referral ID Status Reason Start Date Expiration Date V isits Requested Visits Authorized [id number] New Request 02/11/2022 03/08/2023 1 1 Specialty Diagnoses / Procedures Referred By Contac t Referred To Contact Diagnoses Pre-op exam Procedures DVT/VTE RISK ASSESSMENT Valentina Manuel PA-C [address] [place] [address] Referral ID Status Reason Start Date Expiration Date V isits Requested Visits Authorized [id number] New Request 02/11/2022 03/08/2023 1 1 Specialty Diagnoses / Procedures Referred By Contac t Referred To Contact Diagnoses H/O bilateral mastectomy History of right breast cancer Procedures US BREAST LIMITED UNILATERAL RIGHT Pati Boles, 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 [address] [place] [address] Referral ID Status Reason Start Date Expiration Date V isits Requested Visits Authorized [id number] New Request 02/06/2023 03/02/2024 1 1 Specialty Diagnoses / Procedures Referred By Contac t Referred To Contact Diagnoses H/O bilateral mastectomy History of right breast cancer Procedures CT CHEST WITHOUT CONTRAST CHG DIAGNOSTIC COMPUTED TOMOGRAPHY THORAX W/O CNTRST Pati Boles, 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 [address] [place] [id number] Referral ID Status Reason Start Date Expiration Date V isits Requested Visits Authorized [id number] New Request 02/06/2023 03/02/2024 1 1 Referral ID Status Reason Start Date Expiration Date Visits Re quested Visits Authorized [id number] Closed 02/06/2023 03/02/2024 1 1 Specialty Diagnoses / Procedures Referred By Corinne vines Referred To Contact Radiology Diagnoses Hyperlipidemia, unspecified Family history of ischemic heart disease and other diseases of the circulatory system Procedures CT cardiac scoring IV contrast [facility] [address] [place] [phone] Referral ID Status Reason Start Date Expiration Date Visits Requested Visits Authorized [id number] Authorized Perform Procedure 10/28/2023 10/27/2024 1 1 Additional Source Comments INFORMATION SOURCE (unrecogn ized section and content) DATE CREATED AUTHOR 01/10/2021 [facility] DATE CREATED AUTHOR AUTHOR'S ORGANIZ ATION 12/31/2023 [facility] DATE CREATED AUTHOR AUTHOR'S ORGANIZ ATION 03/20/2025 [facility] DATE CREATED AUTHOR AUTHOR'S ORGANIZ ATION 03/20/2025 [facility] DATE CREATED AUTHOR AUTHOR'S ORGANIZ ATION 03/21/2025 [facility] DATE CREATED AUTHOR AUTHOR'S ORGANIZ ATION 04/11/2025 [facility] DATE CREATED AUTHOR AUTHOR'S ORGANIZ ATION 04/19/2025 [facility] Goals (unrecognized section and content) Goals may be documented in a n alternate sectionGoals may be documented in an alternate sectionGoals may be documented in an alternate sectionGoals may be documented in an alternate sectionGoals may be documented in an alternate sectionGoals may be documented in an alternate sectionGoals may be documented in an alternate sectionGoals may be documented in an alternate sectionGoals may be documented in an alternate sectionGoals may be documented in an alternate sectionGoals may be documented in an alternate sectionGoals may be documented in an alternate sectionGoals may be documented in an alternate sectionGoals may be documented in an alternate sectionGoals may be documented in an alternate sectionGoals may be documented in an alternate sectionGoals may be documented in an alternate section Reason for Visit (unrecogniz ed section and content) Reason Comments Follow-up Reason Comments Pre-op Exam Reason Comments Post Op Visit Reason Comments Breast Problem Reason Comments Patient Update Reason Comments Establish Care Dr. Foreman/ Dr. Graham er Reason Comments New Patient Right knee pain Reason Comments Medicare Wellness Exam F/U 6 months Reason Comments Follow-up discuss/schedule R T KA Specialty Diagnoses / Procedures Referred By Corinne t Referred To Contact Diagnoses H/O bilateral mastectomy History of right breast cancer Procedures US BREAST LIMITED UNILATERAL RIGHT Pati Boles 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 [address] [place] [address] Referral ID Status Reason Start Date Expiration Date V isits Requested Visits Authorized [id number] New Request 02/06/2023 03/02/2024 1 1 Specialty Diagnoses / Procedures Referred By Corinne t Referred To Contact Diagnoses H/O bilateral mastectomy History of right breast cancer Procedures CT CHEST WITHOUT CONTRAST CHG DIAGNOSTIC COMPUTED TOMOGRAPHY THORAX W/O CNTRST Pati Boles 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 [address] [place] [address] Referral ID Status Reason Start Date Expiration Date V isits Requested Visits Authorized [id number] New Request 02/06/2023 03/02/2024 1 1 Reason Comments Breast Problem Specialty Diagnoses / Procedures Referred By Corinne t Referred To Contact Diagnoses Unilateral primary osteoarthritis, right knee Unilateral primary osteoarthritis, right knee [M17.11] Procedures CO ARTHRP KNE CONDYLE&PLATU MEDIAL&LAT COMPARTMENTS RIGHT TOTAL KNEE ARTHROPLASTY Altaf Metz MD [address] [facility] [address] [place] [address] [facility] [address] [place] [address] Referral ID Status Reason Start Date Expiration Date Visits Re quested Visits Authorized [id number] 1 Reason Onset Date Comments Post-op Problem 04/13/2023 Reason Comments Post-op R TKA Reason Onset Date Comments Med Refill 06/22/2023 Reason Comments Follow-up R TKA 4 month fu Reason Onset Date Comments Advice Only 06/19/2023 Reason Comments Med Refill Specialty Diagnoses / Procedures Referred By Contac t Referred To Contact Radiology Diagnoses Hyperlipidemia, unspecified Family history of ischemic heart disease and other diseases of the circulatory system Procedures CT cardiac scoring wo IV contrast [facility] [address] [place] [address] Referral ID Status Reason Start Date Expiration Date Visits Requested Visits Authorized [id number] Authorized Perform Procedure 10/28/2023 10/27/2024 1 1 Reason Onset Date Comments New Med Request 01/18/2024 Reason Comments Follow-up Right TKA 1 yr DOS 1 Reason Onset Date Comments Advice Only 03/28/2024 Reason Comments Fall Fell on left side x 1 day, tripped on sidewalk, hit shoulder and having pain, rib/ under armpit pain, hit knees, Reason Onset Date Comments ACM LORETTA RN 04/15/2024 ED utilizatio n review per request of payer Reason Comments ED Follow-up fell on Thursday errol ed on step, c/o rib, chest and head pain 12/22 Reason Onset Date Comments Population Health Navigation Outreach 06/30/2024 [employer] Reason Onset Date Comments Med Refill 07/25/2024 Reason Comments F/U 6 months Reason Comments Results Reason Comments Consult Specialty Diagnoses / Procedures Referred By Contac t Referred To Contact Oncology Diagnoses H/O bilateral mastectomy Procedures CONSULT TO ONCOLOGY OFFICE/OUTPATIENT [facility] 60 MINUTES Garo Steele MD [address] [place] [address] Phone: tel: fax: Referral ID Status Reason Start Date Expiration Date V isits Requested Visits Authorized [id number] Closed PCP Requested Referral 04/23/2025 10/21/2025 1 1 Reason Onset Date Comments Allied Health Visit 01/11/2025 Medication A dherence Outreach Reason Onset Date Comments Allied Health Visit 01/27/2025 Medication A dherence Outreach Reason Onset Date Comments Allied Health Visit 01/27/2025 Medication A dherence Reason Onset Date Comments Other 02/06/2025 Dental prophylax is Reason Comments Follow-up F/u new dx- left hip pain- discuss options "may consider surgery" Scheduled Active and Recently Administ ered Medications (unrecognized section and content) Medication Order 02/09/2022 02/10/2022 02/11/2022 acetaminophen (TYLENOL) tablet 975 mg (COMPLETED) 975 mg, Oral, ONCE, 1 dose, On Thu02/11/22 at 0715, Maximum dose of acetaminophen is 4000 mg from all sources in 24 hours. 0646 (Given - Provid er: Danielle Victoria RN) scopolamine (TRANSDERM-SCOP) patch 1 patch 1 patch, Transdermal, EVERY 72 HOURS, First dose on Thu02/11/22 at 0715, Until Discontinued, Apply patch to site behind the ear. Rotate sites for each application. Do not cut or alter patch. Each patch delivers 1 mg over 72 hours. 0646 (Patch Applied - Provider: Danielle Victoria RN)1415 (Due: Patch Removed - Provider: System Discharge - Comment: Time automatically adjusted from order being discontinued) Continuous Medication Order 02/09/2022 02/10/2022 02/11/2022 lactated ringers IV solution Intravenous, at 75 mL/hr, CONTINUOUS, Starting on Thu02/11/22 at 0515, Until Thu02/11/22 at 1615, Pre-op/Pre-Proc 0549 ($$New Bag$$ - Provider: Danielle Victoria RN)0722 (Paused - Provider: Fazal Chavis MD - Comment: Switch to gravity)0723 (Restarted - Provider: Fazal Chavis MD)0759 (Anesthesia Volume Adjustment - Provider: Fazal Chavis MD)0808 ($$New Bag$$ - Provider: Fazal Chavis MD)0844 (Anesthesia Volume Adjustment - Provider: Fazal Chavis MD)0914 (Anesthesia Volume Adjustment - Provider: Fazal Chavis MD) lactated ringers IV solution Intravenous, at 100 mL/hr, CONTINUOUS, Starting on Thu02/11/22 at 1000, Until Thu02/11/22 at 1615, Recovery 1000 (Canceled Entry - Provider: System Discharge - Comment: Automatically canceled at discontinue of medication order) PRN Medication Order 02/09/2022 02/10/2022 02/11/2022 ceFAZolin (ANCEF) 2 g in dextrose 100 mL premix IVPB (COMPLETED) 2 g, Intravenous, Administer over 30 Minutes, TISSUE PACKER TO PROCEDURE, 1 dose, Starting on Thu02/11/22 at 0511, Until Discontinued, Other, surgical prophylaxis, Initiate antibiotic administration 30-60 minutes prior to surgical incision and complete administration prior to surgical incision., Pre-op/Pre-Proc 0715 (Given - Provid er: Fazal Chavis MD) diphenhydrAMINE (BENADRYL) injection 12.5 mg 12.5 mg, Intravenous, EVERY 30 MINUTES NEEDED, 2 doses, Starting on Thu02/11/22 at 0948, Until 02/11/22 at 1615, Itching, FIRST Line, Use second dose only if first dose did not result in confusion . Do not give if age is > 65yo, Recovery haloperidol lactate (HALDOL) injection 1 mg 1 mg, Intravenous, ONCE NEEDED, 1 dose, Starting on Thu02/11/22 at 0948, Until 02/11/22 at 1615, Refractory Nausea/vomiting, Use if patient still experiencing nausea/vomiting after 1st and 2nd line medications. Do not administer within 6 hours of intra-operative dose., Recovery HYDROmorphone (DILAUDID) injection 0.2 mg(Linked Group 1) 0.2 mg, Intravenous, EVERY 5 MINUTES NEEDED, Starting on Thu02/11/22 at 0948, Until Tu02/11/22 at 1615, Moderate Pain, Severe Pain, Use as initial dose. Higher dose may be administered if lower dose did not result in adverse effects (RR<10, decrease in level of consciousness) and was previously documented as ineffective. May give a total of 4mg in PACU., Recovery 1016 (Given - Provid er: Herminia Conrad RN)1058 (Given - Provider: Herminia Conrad RN) HYDROmorphone (DILAUDID) injection 0.5 mg(Linked Group 1) 0.5 mg, Intravenous, EVERY 5 MINUTES NEEDED, Starting on Thu02/11/22 at 0948, Until Thu02/11/22 at 1615, Moderate Pain, Severe Pain, Higher dose may be administered if lower dose did not result in adverse effects (RR<10, decrease in level of consciousness) and was previously documented as ineffective. Decrease back to lower dose if patient has adverse effects, or no PRN used in previous 30 minutes. May give a total of 4mg in PACU ., Recovery 1016 (See Alternativ e - Provider: Herminia Conrad RN)1058 (See Alternative - Provider: Herminia Conrad RN) lidocaine 1% (PF) (XYLOCAINE MPF) 1 % injection 0.1-0.3 mL 0.1-0.3 mL, Infiltration, ONCE NEEDED, 1 dose, Starting on Thu02/11/22 at 0511, Until Thu02/11/22 at 1615, Other, For Peripheral IV insertion, For Peripheral insertion, Pre-op/Pre-Proc metoprolol (LOPRESSOR) injection 5 mg 5 mg, Intravenous, EVERY 15 MINUTES NEEDED, Starting on Thu02/11/22 at 0948, Until Thu02/11/22 at 1615, FIRST line HTN. , For SBP > 160 Hold if HR < 60 and give SECOND line agent. May give a total of 5 mg while in PACU. If blood pressure uncontrolled after 5mg of metoprolol administered, use second line agent or notify MD if BP still uncontrolled., Recovery ondansetron 4mg/2ml (ZOFRAN) injection 4 mg 4 mg, Intravenous, ONCE NEEDED, 1 dose, Starting on Thu02/11/22 at 0948, Until Thu02/11/22 at 1615, Nausea / Vomiting, FIRST line antiemetic, Do not administer within 6 hours of intra-operative dose., Recovery ondansetron 4mg/2ml (ZOFRAN) injection 4 mg 4 mg, Intravenous, EVERY 4 HOURS NEEDED, Starting on Thu02/11/22 at 1239, Until Thu02/11/22 at 1615, Nausea / Vomiting, Post-op/Post-Proc oxyCODONE-acetaminophen (PERCOCET) 5-325 MG per tablet 1 tablet(Linked Group 2) 1 tablet, Oral, EVERY 4 HOURS NEEDED, Starting on Thu02/11/22 at 1157, Until Thu02/11/22 at 1615, Moderate Pain, Severe Pain, Use as initial dose. Higher dose may be administered if lower dose was previously documented as ineffective and did not result in adverse effects (RR<10, decrease in level of consciousness)., Post-op/Post-Proc 1201 (Given - Provid er: Jemima Campbell RN)1335 (Given - Provider: Danielle Victoria, RN) oxyCODONE-acetaminophen (PERCOCET) 5-325 MG per tablet 2 tablet(Linked Group 2) 2 tablet, Oral, EVERY 4 HOURS NEEDED, Starting on Thu02/11/22 at 1157, Until Thu02/11/22 at 1615, Moderate Pain, Severe Pain, Higher dose may be administered if lower dose was previously documented as ineffective and did not result in adverse effects (RR<10, decrease in level of consciousness). Decrease back to lower dose if patient has adverse effects, or no PRN used in previous 12 hours., Post-op/Post-Proc 1201 (See Alternativ e - Provider: Jemima Campbell RN)1335 (See Alternative - Provider: Danielle Victoria, MAVIS) povidone-iodine (BETADINE) 10 % ointment (CANCELED) NEEDED, Starting on Thu02/11/22 at 0937, Until Thu02/11/22 at 0958, Intra-op/Intra-Proc 0937 (Given - Provid er: Abner Hermosillo MD - Comment: for bilateral breasts and right axilla) povidone-iodine (BETADINE) 10 % topical solution (CANCELED) NEEDED, Starting on Thu02/11/22 at 0835, Until Thu02/11/22 at 0958, Intra-op/Intra-Proc 0835 (Given - Provid er: Abner Hermosillo MD - Comment: for bilateral breasts)0840 (Given - Provider: Abner Hermosillo MD - Comment: mixed 1:1 with 0.9% for bilateral breast irrigation) promethazine (PHENERGAN) injection 6.25 mg 6.25 mg, Intravenous, EVERY 1 HOUR NEEDED, 2 doses, Starting on Thu02/11/22 at 0948, Until Thu02/11/22 at 1615, Nausea / Vomiting, SECOND line antiemetic, Do not administer within 6 hours of intra-operative dose. Extravasation Risk. If given via IV route: dilute dose with 10mL normal saline and inject through a running IV or line over 5 minutes OR if no active IV or line is saline-dwelled dilute dose with 20mL normal saline and administer over 5 minutes. AVOID Intra-arterial administration; necrosis & gangrene have resulted. Hand, wrist or foot veins SHOULD BE AVOIDED., Recovery tobramycin PF (NEBCIN) 80 mg, ceFAZolin (ANCEF) 1 g, vancomycin (VANCOCIN) 1,000 mg in sodium chloride 0.9 % 500 mL irrigation solution (CANCELED) NEEDED, Starting on Thu02/11/22 at 0817, Until Thu02/11/22 at 0958, Intra-op/Intra-Proc 0817 (Given - Provid er: Abner Hermosillo MD - Comment: to soak mesh and implant in. split in two for bilateral breast mesh and implants.) tobramycin PF (NEBCIN) 80 mg, ceFAZolin (ANCEF) 1 g, vancomycin (VANCOCIN) 1,000 mg in sodium chloride 0.9 % 500 mL irrigation solution (CANCELED) NEEDED, Starting on Thu02/11/22 at 0818, Until Thu02/11/22 at 0958, Intra-op/Intra-Proc 0818 (Given - Provid er: Abner Hermosillo MD - Comment: for irrigation of left breast) tobramycin PF (NEBCIN) 80 mg, ceFAZolin (ANCEF) 1 g, vancomycin (VANCOCIN) 1,000 mg in sodium chloride 0.9 % 500 mL irrigation solution (CANCELED) NEEDED, Starting on Thu02/11/22 at 0818, Until Thu02/11/22 at 0958, Intra-op/Intra-Proc 0818 (Given - Provid er: Abner Hermosillo MD - Comment: irrigation for right breast) Linked Groups Order Group 1: HYDROmorphone (DILAUDID) injection 0.2 mgJump to med 0.2 mg, Intravenous, EVERY 5 MINUTES NEEDED, Starting on Thu02/11/22 at 0948, Until Thu02/11/22 at 1615, Moderate Pain, Severe Pain
Use as initial dose. Higher dose may be administered if lower dose did not result in adverse effects (RR<10, decrease in level of consciousness) and was previously documented as ineffective. May give a total of 4mg in PACU.
Recovery Or HYDROmorphone (DILAUDID) injection 0.5 mgJump to med 0.5 mg, Intravenous, EVERY 5 MINUTES NEEDED, Starting on Thu02/11/22 at 0948, Until Thu02/11/22 at 1615, Moderate Pain, Severe Pain
Higher dose may be administered if lower dose did not result in adverse effects (RR<10, decrease in level of consciousness) and was previously documented as ineffective. Decrease back to lower dose if patient has adverse effects, or no PRN used in previous 30 minutes. May give a total of 4mg in PACU .
Recovery Group 2: oxyCODONE-acetaminophen (PERCOCET) 5-325 MG per tablet 1 tabletJump to med 1 tablet, Oral, EVERY 4 HOURS NEEDED, Starting on Thu02/11/22 at 1157, Until Thu02/11/22 at 1615, Moderate Pain, Severe Pain
Use as initial dose. Higher dose may be administered if lower dose was previously documented as ineffective and did not result in adverse effects (RR<10, decrease in level of consciousness).
Post-op/Post-Proc Or oxyCODONE-acetaminophen (PERCOCET) 5-325 MG per tablet 2 tabletJump to med 2 tablet, Oral, EVERY 4 HOURS NEEDED, Starting on Thu02/11/22 at 1157, Until Thu02/11/22 at 1615, Moderate Pain, Severe Pain
Higher dose may be administered if lower dose was previously documented as ineffective and did not result in adverse effects (RR<10, decrease in level of consciousness). Decrease back to lower dose if patient has adverse effects, or no PRN used in previous 12 hours.
Post-op/Post-Proc Scheduled Medication Order 03/23/2023 03/24/2023 03/25/2023 acetaminophen (Tylenol) tablet 1,000 mg (COMPLETED) 1,000 mg, Oral, Once, On Thu03/24/23 at 0615, For 1 dose, Preprocedure, Maximum dose of acetaminophen is 4000 mg from all sources in 24 hours. Do not administer if patient has taken tylenol <4 hours earlier. Do not give if contraindicated ie. patient has active liver disease or cirrhosis. 0636 (Given - Provider: Anel Amaya RN) acetaminophen (Tylenol) tablet 650 mg 650 mg, Oral, Every 6 hours, First dose on Thu03/24/23 at 1445, Phase II/On Unit 1617 (Given - Provider: Belkys Hayden RN)2141 (Given - Provider: Yesenia Pierce, MAVIS) 0352 (Given - Provider: Yesenia Pierce, MAVIS)1010 (Given - Provider: Mitzy Wilder RN) ceFAZolin (Ancef) 2,000 mg in sodium chloride 0.9 % 100 mL IVPB (COMPLETED) 2,000 mg, IntraVENous, at 200 mL/hr, Administer over 30 Minutes, Every 8 hours, First dose on Thu03/24/23 at 1700, For 2 doses, Phase II/On Unit, Mini-Bag Plus bag, Suspected Indication (Select all that apply): Surgical Prophylaxis 1732 (New Bag - Provider: Belkys Hayden RN)1802 (Stopped - Provider: Belkys Hayden RN)2357 (New Bag - Provider: Yesenia Pierce RN) 0027 (Stopped - Provider: Yesenia Pierce RN) ceFAZolin in dextrose 4% (Ancef) IVPB 2,000 mg (COMPLETED) 2,000 mg, IntraVENous, Administer over 30 Minutes, Once, On Thu03/24/23 at 0615, For 1 dose, Preprocedure, Administer within 1 hour prior to incision. Recommend to repeat in 3-4 hours after initial dose if still intra-op. premix bag, Suspected Indication (Select all that apply): Surgical Prophylaxis 0918 (Given - Provider: EVI Carlos CRNA)1042 (Anesthesia Volume Adjustment - Provider: EVI Carlos CRNA) celecoxib (CeleBREX) capsule 200 mg (COMPLETED) 200 mg, Oral, Once, On Thu03/24/23 at 0615, For 1 dose, Preprocedure 0636 (Given - Provider: Anel Amaya RN) dexAMETHasone (Decadron) tablet 8 mg (COMPLETED) 8 mg, Oral, Every 6 hours scheduled (4 times per day), First dose on Thu03/24/23 at 1500, For 2 doses, Phase II/On Unit 1616 (Given - Provider: Belkys Hayden RN)2356 (Given - Provider: Yesenia Pierce, MAVIS) enoxaparin (Lovenox) syringe 40 mg 40 mg, SubCUTAneous, Daily, First dose on Thu03/25/23 at 0600, Phase II/On Unit, Begin morning of POD 1, Indication of Use: Prophylaxis-DVT/PE, Indications: Prophylaxis of Venous Thromboembolism 0823 (Given - Provid er: Mitzy Wilder RN) famotidine (Pepcid) tablet 20 mg (COMPLETED)(Linked Group 1) 20 mg, Oral, Once, On Thu03/24/23 at 0615, For 1 dose, Preprocedure, IV or ORAL 0637 (Given - Provider: Anel Amaya RN) famotidine (Pepcid) tablet 20 mg 20 mg, Oral, 2 times daily, First dose on Thu03/24/23 at 2100, Phase II/On Unit 2140 (Given - Provider: Yesenia Pierce RN) 08 (Given - Provider: Mitzy Wilder, MAVIS) gabapentin (Neurontin) capsule 300 mg 300 mg, Oral, 3 times daily, First dose on Thu03/24/23 at 2100 2141 (Given - Provider: Yesenia Pierce, MAVIS) 0823 (Given - Provider: Mitzy Wilder, MAVIS) ketorolac (Toradol) injection 15 mg (COMPLETED) 15 mg, IntraVENous, Every 6 hours, First dose on Thu03/24/23 at 1445, For 2 doses, Phase II/On Unit, Give in addition to any other pain medication ordered at same time for any pain indication. 1617 (Given - Provider: Belkys Hayden RN)214 (Given - Provider: Yesenia Pierce, MAVIS) Nozin Nasal Mattress Inspector Popswab 2 Swab (COMPLETED) 2 Swab (1 Package), Topical, Once, On Thu03/24/23 at 0615, For 1 dose, Preprocedure, Flip ampule around in paper sleeve to expose swab tip. Shake well. With sleeve on ampule, crush at dot to pop. Squeeze to wet swab tip. Swab around nostril rims 8 times in each direction. Squeeze to rewet swab tip and repeat. Repeat for other nostril. Caution : Do not extend in nose beyond swab tip. Appy to skin only. Discard after use. 0615 (Given - Provider: Anel Amaya, RN) ropivacaine (Naropin) 5 MG/ML 15 mL, EPINEPHrine (Adrenalin) 30 MG/30ML 0.125 mL, ketorolac (Toradol) 30 MG/ML 0.5 mL in sodium chloride (PF) 0.9 % 15 mL syringe (COMPLETED) 1 Syringe, Intra-artICUlar, Once, On Thu03/24/23 at 0830, For 1 dose, Intraprocedure 0943 (Given - Provider: Carolyn Trujillo RN - Comment: right knee) ropivacaine (Naropin) 5 MG/ML 15 mL, EPINEPHrine (Adrenalin) 30 MG/30ML 0.125 mL, ketorolac (Toradol) 30 MG/ML 0.5 mL in sodium chloride (PF) 0.9 % 15 mL syringe (COMPLETED) 1 Syringe, Intra-artICUlar, Once, On Thu03/24/23 at 0830, For 1 dose, Intraprocedure 0942 (Given - Provider: Carolyn Trujillo RN - Comment: right knee) sodium chloride 0.9% (NS) flush 10 mL 10 mL, IntraVENous, Every 12 hours scheduled (2 times per day), First dose on Thu03/24/23 at 2100, Phase II/On Unit 2100 (Given - Provider: Yesenia Pierce RN) 0830 (Given - Provider: Mitzy Wilder, MAVIS) traMADol (Ultram) tablet 50 mg 50 mg, Oral, Every 6 hours, First dose on Thu03/24/23 at 1445, Phase II/On Unit, Patient may refuse medication if they feel they do not need it. 1616 (Given - Provider: Belkys Hayden RN)2141 (Given - Provider: Yesenia Pierce, MAVIS) 0352 (Given - Provider: Yesenia Pierce, MAVIS)1009 (Given - Provider: Mitzy Wilder RN) Continuous Medication Order 03/23/2023 03/24/2023 03/25/2023 lactated Ringer's infusion 50 mL/hr, IntraVENous, Continuous, Starting on Thu03/24/23 at 0615, Preprocedure, Upon admission to sameday - please start iv if patient does not have iv access. Use 500ml NS for patients on dialysis. 0656 (New Bag - Provider: Anel Amaya, RN)0905 (Continued by Anesthesia - Provider: EVI Carlos CRNA)1042 (Stopped - Provider: EVI Carlos CRNA) ropivacaine (Naropin) 0.2 % elastomeric infusion 500 mL 500 mL, Infiltration, at 4 mL/hr, Continuous, Starting on Thu03/24/23 at 1100, Recovery & On Unit, Laterality: Right bolus-4ml. 30min lockout 1150 (New Bag - Provider: Todd Felix RN) sodium chloride 0.9 % infusion 125 mL/hr, IntraVENous, Continuous, Starting on Thu03/24/23 at 1445, Phase II/On Unit 1445 (Stopped - Provider: Belkys Hayden RN) PRN Medication Order 03/23/2023 03/24/2023 03/25/2023 ALPRAZolam (Xanax) disintegrating tablet 0.25 mg (CANCELED) 0.25 mg, Oral, PRN, anxiety, Starting on Thu03/24/23 at 0614, Preprocedure 0640 (Given - Provider: Anel Amaya, MAVIS) bisacodyl (Dulcolax) EC tablet 5 mg 5 mg, Oral, Daily PRN, constipation, Starting on Thu03/24/23 at 1433, Phase II/On Unit, 1st line for treatment of constipation - give scheduled if no bowel movement in past 24 hours. Do not crush, chew, or split. cefuroxime (Ceftin) tablet (CANCELED) As needed, Starting on Thu03/24/23 at 0940, Intraprocedure 0940 (Given - Provider: Altaf Metz MD - Comment: 1.5g powder mixed with cement) diphenhydrAMINE (BENADryl) injection 25 mg(Linked Group 2) 25 mg, IntraVENous, Every 6 hours PRN, itching, Starting on Thu03/24/23 at 1433, Phase II/On Unit, Administer if oral route cannot be used. diphenhydrAMINE (BENADryl) tablet/capsule 25 mg(Linked Group 2) 25 mg, Oral, Every 6 hours PRN, itching, Starting on Thu03/24/23 at 1433, Phase II/On Unit HYDROmorphone (Dilaudid) injection 0.25 mg(Linked Group 3) 0.25 mg, IntraVENous, Every 3 hours PRN, moderate pain (4-6), Starting on Thu03/24/23 at 1433, Phase II/On Unit, If oral and IV narcotics ordered, use oral first and only use IV if oral is ineffective or cannot take oral. Do Not give oral and IV within 1 hour of each other unless specifically ordered. HYDROmorphone (Dilaudid) injection 0.5 mg(Linked Group 3) 0.5 mg, IntraVENous, Every 3 hours PRN, severe pain (7-10), Starting on Thu03/24/23 at 1433, Phase II/On Unit, If oral and IV narcotics ordered, use oral first and only use IV if oral is ineffective or cannot take oral. Do Not give oral and IV within 1 hour of each other unless specifically ordered. HYDROmorphone (Dilaudid) injection 0.5 mg (CANCELED) 0.5 mg, IntraVENous, Every 5 min PRN, severe pain (7-10), Starting on Thu03/24/23 at 1055, For 4 doses, Recovery (only), Phase I and Phase II- Initial therapy for severe pain (7-10). Restricted to a 90 minute time frame starting when the patient can verbally state their pain score. If after 2 doses the pain score does not decrease by more than one point, then call the provider. If oral meds are utilized, do not return to initial therapy medications. 1158 (Given - Provider: Laure Felix RN)1300 (Given - Provider: Dylan Felix RN) melatonin tablet 10 mg 10 mg, Oral, Nightly PRN, sleep, Starting on Thu03/24/23 at 2251 1116 (Given - Provider: Nissa Pierce RN) ondansetron (Zofran) injection 4 mg(Linked Group 4) 4 mg, IntraVENous, Every 6 hours PRN, nausea, vomiting, Starting on Thu03/24/23 at 1433, Phase II/On Unit, 1st Line. Give IV if patient is unable to take orally. If inadequate response within 60 minutes, proceed to next-line agent or contact provider if no further options ordered. ondansetron ODT (Zofran-ODT) disintegrating tablet 4 mg(Linked Group 4) 4 mg, Oral, Every 8 hours PRN, nausea, vomiting, Starting on Thu03/24/23 at 1433, Phase II/On Unit, 1st Line. If inadequate response within 60 minutes, proceed to next-line agent or contact provider if no further options ordered. Patient should allow tablet to dissolve on tongue. Do not remove from blister pack until just before administering. oxyCODONE (Roxicodone) immediate release tablet 10 mg(Linked Group 5) 10 mg, Oral, Every 4 hours PRN, severe pain (7-10), Starting on Thu03/24/23 at 1433, Phase II/On Unit oxyCODONE (Roxicodone) immediate release tablet 5 mg(Linked Group 5) 5 mg, Oral, Every 4 hours PRN, moderate pain (4-6), Starting on Thu03/24/23 at 1433, Phase II/On Unit sodium chloride 0.9 % infusion 5-250 mL/hr, IntraVENous, PRN, if patient receiving piggyback infusions and maintenance fluids are not ordered OR KVO fluids to protect IV site / prevent frequent line interruptions/ long duration, Starting on Thu03/24/23 at 1433, Phase II/On Unit, For piggyback infusion, administer at same rate as piggyback for a total of 25 mL. Enter 25 mL into dose field and piggyback rate into rate field of order. If piggyback is infusing at a rate less than 100 mL/hr, enter 25 mL into dose field and 100 mL/hr into rate field of order. For KVO fluids, enter rate of 20 mL/hr or less into rate field of order. sodium chloride 0.9 % irrigation solution (CANCELED) As needed, Starting on Thu03/24/23 at 0941, Intraprocedure 0940 (Given - Provider: Altaf Metz MD)0941 (Given - Provider: Altaf Metz MD - Comment: tinted with betadine) sodium chloride 0.9% (NS) flush 10 mL 10 mL, IntraVENous, PRN, line care, Starting on Thu03/24/23 at 1433, Phase II/On Unit, After every IV line use sterile water irrigation solution (CANCELED) As needed, Starting on Thu03/24/23 at 0941, Intraprocedure 0941 (Given - Provider: Altaf Metz MD - Comment: on tech table) Linked Groups Order Group 1: famotidine (Pepcid) tablet 20 mg (COMPLETED)Jump to med 20 mg, Oral, Once, On Thu03/24/23 at 0615, For 1 dose, Preprocedure, IV or ORAL Or famotidine (Pepcid) 20 mg in sodium chloride (PF) 0.9 % 10 mL injection (COMPLETED) 20 mg, IntraVENous, Administer over 2 Minutes, Once, On Thu03/24/23 at 0615, For 1 dose, Preprocedure, IV or ORAL Group 2: diphenhydrAMINE (BENADryl) tablet/capsule 25 mgJump to med 25 mg, Oral, Every 6 hours PRN, itching, Starting on Thu03/24/23 at 1433, Phase II/On Unit Or diphenhydrAMINE (BENADryl) injection 25 mgJump to med 25 mg, IntraVENous, Every 6 hours PRN, itching, Starting on Thu03/24/23 at 1433, Phase II/On Unit, Administer if oral route cannot be used. Group 3: HYDROmorphone (Dilaudid) injection 0.25 mgJump to med 0.25 mg, IntraVENous, Every 3 hours PRN, moderate pain (4-6), Starting on Thu03/24/23 at 1433, Phase II/On Unit, If oral and IV narcotics ordered, use oral first and only use IV if oral is ineffective or cannot take oral. Do Not give oral and IV within 1 hour of each other unless specifically ordered. Or HYDROmorphone (Dilaudid) injection 0.5 mgJump to med 0.5 mg, IntraVENous, Every 3 hours PRN, severe pain (7-10), Starting on Thu03/24/23 at 1433, Phase II/On Unit, If oral and IV narcotics ordered, use oral first and only use IV if oral is ineffective or cannot take oral. Do Not give oral and IV within 1 hour of each other unless specifically ordered. Group 4: ondansetron ODT (Zofran-ODT) disintegrating tablet 4 mgJump to med 4 mg, Oral, Every 8 hours PRN, nausea, vomiting, Starting on Thu03/24/23 at 1433, Phase II/On Unit, 1st Line. If inadequate response within 60 minutes, proceed to next-line agent or contact provider if no further options ordered. Patient should allow tablet to dissolve on tongue. Do not remove from blister pack until just before administering. Or ondansetron (Zofran) injection 4 mgJump to med 4 mg, IntraVENous, Every 6 hours PRN, nausea, vomiting, Starting on Thu03/24/23 at 1433, Phase II/On Unit, 1st Line. Give IV if patient is unable to take orally. If inadequate response within 60 minutes, proceed to next-line agent or contact provider if no further options ordered. Group 5: oxyCODONE (Roxicodone) immediate release tablet 5 mgJump to med 5 mg, Oral, Every 4 hours PRN, moderate pain (4-6), Starting on Thu03/24/23 at 1433, Phase II/On Unit Or oxyCODONE (Roxicodone) immediate release tablet 10 mgJump to med 10 mg, Oral, Every 4 hours PRN, severe pain (7-10), Starting on Thu03/24/23 at 1433, Phase II/On Unit Care Teams (unrecognized sec tion and content) 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 Relationship Specialty Start Date End Date Karolina Leong MD [address] [place] [address] PCP - General Pulmonary Disease 02/11/22 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 Relationship Specialty Start Date End Date Karolina Leong MD [address] [place] [address] PCP - General Pulmonary Disease 02/11/22 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 Relationship Specialty Start Date End Date Karolina Leong MD [address] [place] [address] PCP - General Pulmonary Disease 02/11/22 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 Relationship 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 Start Date End Date Karolina Leong MD [address] [place] [phone] PCP - General Pulmonary Disease 02/11/22 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 Geovanni Foreman MD Family Provider Active Dr. Karolina Leong MD Primary Care Provider Active Team Status: Inactive Member Role Status Dates Dr. Karolina Leong MD Primary Care Provider Active Dr. Henri Amaya DO Attending Provider, Referrin g Provider Active 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 Relationship Specialty Start Date End Date Garo Steele [address] [facility] [place] [address] PCP - General Internal Medicine 11/04/22 Team Status: Active Member Role Status Dates Dr. Geovanni Foreman MD Family Provider Active Dr. Garo Steele MD Primary Care Provider Active Team Status: Inactive Member Role Status Dates Dr. Garo Steele MD Primary Care Provider, Refer ring Provider Active Dr. Clay Jean MD Attending Provider Active Team Status: Active Member Role Status Dates Dr. Garo Steele MD Primary Care Provider Active Dr. Clay Jean MD Attending Provider Active Team Status: Active Member Role Status Dates Dr. Franki Irvin MD Attending Provider, Referring Pro vider Active Dr. Garo Steele MD Primary Care Provider Active Team Status: Inactive Member Role Status Dates Dr. Garo Steele MD Primary Care Provider Active Dr. Haily Arredondo MD Attending Provider, Referring P rovider Active Dr. Clay Jean MD Other Provider Active Team Status: Active Member Role Status Dates Dr. Garo Steele MD Primary Care Provider Active Self Referred Attending Provider, Referring Provider A ctive 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 Relationship Specialty Start Date End Date Garo Steele [address] [facility] [place], [place] [address] PCP - General Internal Medicine 11/04/22 Team Status: Inactive Member Role Status Dates Dr. Garo Steele MD Primary Care Provider, Refer ring Provider Active Dr. Haily Arredondo MD Attending Provider Active Team Status: Inactive Member Role Status Dates Dr. Garo Steele MD Primary Care Provider Active Dr. Franki Irvin MD Attending Provider, Referring Pro vider Active 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 Relationship Specialty Start Date End Date Garo Steele MD [address] [facility] [place] [address] PCP - General Internal Medicine 06/27/22 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 Relationship Specialty Start Date End Date Garo Steele [address] [facility] [place], [place] [address] PCP - General Internal Medicine 11/04/22 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 Relationship Specialty Start Date End Date Garo Steele [address] [facility] [place], [place] [id number] PCP - General Internal Medicine 11/04/22 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 Relationship Specialty Start Date End Date Karolina Leong MD [address] [facility] [place] [phone] PCP - General Pulmonary Disease 02/11/22 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 Relationship Specialty Start Date End Date Karolina Leong MD [address] [facility] [place] [phone] PCP - General Pulmonary Disease 02/11/22 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 Relationship Specialty Start Date End Date Karolina Leong MD [address] [place] [phone] PCP - General Pulmonary Disease 02/11/22 Team Status: Inactive Member Role Status Dates Dr. Garo Steele MD Primary Care Provider Active Yony Navarro SENIOR MANAGER MMCOE, SENIOR MANAGER MMCOE-C Attending Provider Active 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 Relationship Specialty Start Date End Date Gaor Steele [address] [place], [place] [id number] PCP - General Internal Medicine 11/04/22 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 Relationship Specialty Start Date End Date Garo Steele [address] [place], [place] [address] PCP - General Internal Medicine 11/04/22 Sherry Garcia RN Nurse Navigator Orthopedic Surgery 03/05/2304/07 Altaf Metz MD [address] [facility] [address] [place] [address] Orthopedic Surgery 03/25/23 03/24/24 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 Relationship Specialty Start Date End Date Garo Steele [address] [place], [place] [address] PCP - General Internal Medicine 11/04/22 Sherry Garcia RN Nurse Navigator Orthopedic Surgery 03/05/2304/07 Altaf Metz MD [address] [facility] [address] [place], [place] [address] Orthopedic Surgery 03/25/23 03/24/24 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 Relationship Specialty Start Date End Date Garo Steele [address] [place], [place] [id number] PCP - General Internal Medicine 11/04/22 Sherry Garcia RN Nurse Navigator Orthopedic Surgery 03/05/2304/07 Altaf Metz MD [address] [facility] [address] [place] [address] Orthopedic Surgery 03/25/23 03/24/24 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 Relationship Specialty Start Date End Date Garo Steele [address] [place] [address] PCP - General Internal Medicine 11/04/22 Sherry Garcia RN Nurse Navigator Orthopedic Surgery 03/05/2304/07 Altaf Metz MD [address] 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 [address] [place] [address] Orthopedic Surgery 03/25/23 03/24/24 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 Relationship Specialty Start Date End Date Garo Steele [address] [place], [place] [address] PCP - General Internal Medicine 11/04/22 Sherry Garcia RN Nurse Navigator Orthopedic Surgery 03/05/2304/07 Altaf Metz MD [address] [facility] [address] [place] [address] Orthopedic Surgery 03/25/23 03/24/24 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 Relationship Specialty Start Date End Date Garo Steele [address] [place] [address] PCP - General Internal Medicine 11/04/22 Sherry Garcia RN Nurse Navigator Orthopedic Surgery 03/05/2304/07 Altaf Metz MD [address] [facility] [address] [place] [address] Orthopedic Surgery 03/25/23 03/24/24 Team Status: Inactive Member Role Status Dates Dr. Garo Steele MD Primary Care Provider Active ISAÍAS SOLITARIO Attending Provider Active 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 Relationship Specialty Start Date End Date Garo Steele [address] [place], [place] [address] PCP - General Internal Medicine 11/04/22 Altaf Metz MD [address] [facility] [address] [place] [address] Orthopedic Surgery 03/25/23 03/24/24 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 Relationship Specialty Start Date End Date Garo Steele [address] [place] [address] PCP - General Internal Medicine 11/04/22 Altaf Metz MD [address] [facility] [address] [place] [address] Orthopedic Surgery 03/25/23 03/24/24 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 Relationship Specialty Start Date End Date Garo Steele [address] [place] [address] PCP - General Internal Medicine 11/04/22 Altaf Metz MD [address] [facility] [address] [place] [address] Orthopedic Surgery 03/25/23 03/24/24 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 Relationship Specialty Start Date End Date Garo Steele [address] [place] [address] PCP - General Internal Medicine 11/04/22 Sherry Garcia RN Nurse Navigator Orthopedic Surgery 03/05/2304/07 Altaf Metz MD [address] [facility] [address] [place] [address] Orthopedic Surgery 03/25/23 03/24/24 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 Relationship Specialty Start Date End Date Garo Steele [address] [place] [address] PCP - General Internal Medicine 11/04/22 Altaf Metz MD [address] [facility] [address] [place] [address] Orthopedic Surgery 03/25/23 03/24/24 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 Relationship Specialty Start Date End Date Clay Jean MD [address] [facility] [address] [place] [address] PCP - General Cardiology 11/05/23 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 Relationship Specialty Start Date End Date Karolina Leong MD PCP - General Pulmonary Disease 02/11/22 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 Relationship Specialty Start Date End Date Garo Steele [address] [facility] [place] [address] PCP - General Internal Medicine 11/04/22 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 Relationship Specialty Start Date End Date Garo Steele MD [address] [facility] [place] [address] PCP - General Internal Medicine 06/27/22 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 Relationship Specialty Start Date End Date Garo Steele MD [address] [facility] [place] [address] PCP - General Internal Medicine 06/27/22 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 Relationship Specialty Start Date End Date Garo Steele MD [address] [facility] [place] [address] PCP - General Internal Medicine 06/27/22 Rosa Wahsburn, SILK SCREEN LAYOUT DRAFTER.CYBER ENGINEER [address] [facility] [place] [address] Construction Tech Internal Medicine 05/23/24 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 Relationship Specialty Start Date End Date Garo Steele [address] [facility] [place] [address] PCP - General Internal Medicine 11/04/22 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 Relationship Specialty Start Date End Date Garo Steele MD [address] [facility] [place] [address] PCP - General Internal Medicine 06/27/22 Rosa Washburn, SILK SCREEN LAYOUT DRAFTER.CYBER ENGINEER [address] [facility] [place] [address] Construction Tech Internal Medicine 05/23/24 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 Relationship Specialty Start Date End Date Garo Steele MD [address] [place], [place] [address] PCP - General Internal Medicine 06/27/22 Rosa Washburn, SILK SCREEN LAYOUT DRAFTER.CYBER ENGINEER [address] [place] [address] Construction Tech Internal Medicine 05/23/24 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 Relationship Specialty Start Date End Date Garo Steele MD [address] [place], [place] [address] PCP - General Internal Medicine 06/27/22 Rosa Washburn, SILK SCREEN LAYOUT DRAFTER.CYBER ENGINEER [address] [place] [address] Construction Tech Internal Medicine 05/23/24 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 Relationship Specialty Start Date End Date Garo Steele MD [address] [place], [place] [id number] PCP - General Internal Medicine 06/27/22 Rosa Washburn, SILK SCREEN LAYOUT DRAFTER.CYBER ENGINEER [address] [place] [address] Construction Tech Internal Medicine 05/23/24 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 Relationship Specialty Start Date End Date Garo Steele MD [address] [place], [place] [address] PCP - General Internal Medicine 06/27/22 Rosa Washburn, SILK SCREEN LAYOUT DRAFTER.CYBER ENGINEER [address] [place] [address] Construction Tech Internal Medicine 05/23/24 Team Status: Active Member Role Status Dates Dr. Garo Steele MD Primary Care Provider Active Team Status: Active Member Role Status Dates Dr. Garo Steele MD Primary Care Provider Active Start: November 02, 2024 Dr. Garo Steele MD Attending Provider Active Start: November 02, 2024 Dr. Garo Steele MD Referring Provider Active Start: November 02, 2024 Team Status: Inactive Member Role Status Dates Dr. Garo Steele MD Primary Care Provider Active Start: November 14, 2024 End: November 14, 2024 Dr. Garo Steele MD Referring Provider Active Start: November 14, 2024 End: November 14, 2024 Dangelo Cevallos NP, SENIOR MANAGER [facility] Attending Provider Active Start: November 14, 2024 End: November 14, 2024 Team Status: Inactive Member Role Status Dates Dr. Garo Steele MD Primary Care Provider Active Start: November 14, 2024 End: November 14, 2024 Dr. Garo Steele MD Referring Provider Active Start: November 14, 2024 End: November 14, 2024 LOUIE BaC Attending Provider Active S tart: November 14, 2024 End: November 14, 2024 Team Status: Active Member Role/Relationship Status Dates Dr. Garo Steele MD Primary Care Provider Active Team Status: Inactive Member Role/Relationship Status Dates Dr. Garo Steele MD Primary Care Provider Active Start: November 14, 2024 End: November 14, 2024 Dr. Garo Steele MD Referring Provider Active Start: November 14, 2024 End: November 14, 2024 Dangelo Cevallos NP, SENIOR MANAGER [facility] Attending Provider Active Start: November 14, 2024 End: November 14, 2024 Team Status: Inactive Member Role/Relationship Status Dates Dr. Garo Steele MD Primary Care Provider Active Start: November 14, 2024 End: November 14, 2024 Dr. Garo Steele MD Referring Provider Active Start: November 14, 2024 End: November 14, 2024 SHAMAR Ba Attending Provider Active S tart: November 14, 2024 End: November 14, 2024 Team Status: Active Member Role/Relationship Status Dates Dr. Garo Steele MD Primary Care Provider Active Start: November 30, 2024 Dr. Garo Steele MD Attending Provider Active Start: November 30, 2024 Dr. Garo Steele MD Referring Provider Active Start: November 30, 2024 Team Status: Inactive Member Role/Relationship Status Dates Dr. Garo Steele MD Primary Care Provider Active Start: December 09, 2024 End: December 09, 2024 Dr. Garo Steele MD Referring Provider Active Start: December 09, 2024 End: December 09, 2024 Dr. Gomez Reynoso DO Attending Provider Active Start: December 09, 2024 End: December 09, 2024 Team Status: Active Member Role/Relationship Status Dates Dr. Garo Steele MD Primary Care Provider Active Start: December 09, 2024 Dr. Garo Steele MD Referring Provider Active Start: December 09, 2024 Dr. Gomez Reynoso DO Attending Provider Active Start: December 09, 2024 Dr. Gomez Reynoso DO Other Provider Active St art: December 09, 2024 Team Status: Inactive Member Role/Relationship Status Dates Dr. Garo Steele MD Primary Care Provider Active Start: December 09, 2024 End: December 09, 2024 Dr. Garo Steele MD Referring Provider Active Start: December 09, 2024 End: December 09, 2024 Dr. Gomez Reynoso DO Attending Provider Active Start: December 09, 2024 End: December 09, 2024 Team Status: Active Member Role/Relationship Status Dates Dr. Garo Steele MD Primary Care Provider Active Start: December 09, 2024 Dr. Garo Steele MD Referring Provider Active Start: December 09, 2024 Dr. Gomez Reynoso DO Attending Provider Active Start: December 09, 2024 Dr. Gomez Reynoso DO Other Provider Active St art: December 09, 2024 Team Status: Inactive Member Role/Relationship Status Dates Dr. Garo Steele MD Primary Care Provider Active Start: December 12, 2024 End: December 12, 2024 Dr. Garo Steele MD Attending Provider Active Start: December 12, 2024 End: December 12, 2024 Dr. Garo Steele MD Referring Provider Active Start: December 12, 2024 End: December 12, 2024 Team Status: Active Member Role/Relationship Status Dates Dr. Garo Steele MD Primary Care Provider Active Start: December 29, 2024 SHAMAR Ba Attending Provider Active S tart: December 29, 2024 SHAMAR Ba Referring Provider Active S tart: December 29, 2024 Team Status: Inactive Member Role/Relationship Status Dates Dr. Garo Steele MD Primary Care Provider Active Start: January 03, 2025 End: January 03, 2025 Dr. Garo Steele MD Referring Provider Active Start: January 03, 2025 End: January 03, 2025 SHAMAR Ba Attending Provider Active S tart: January 03, 2025 End: January 03, 2025 Team Status: Inactive Member Role/Relationship Status Dates Dr. Garo Steele MD Primary Care Provider Active Start: December 29, 2024 End: December 29, 2024 SHAMAR Ba Attending Provider Active S tart: December 29, 2024 End: December 29, 2024 SHAMAR Ba Referring Provider Active S tart: December 29, 2024 End: December 29, 2024 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 Relationship Specialty Start Date End Date Garo Steele MD [address] [place], [place] [id number] PCP - General Internal Medicine 06/27/22 Rosa Washburn, EVI.CYBER ENGINEER [address] [place] [address] Construction Tech Internal Medicine 05/23/24 Team Status: Inactive Member Role/Relationship Status Dates Dr. Garo Steele MD Primary Care Provider Active Start: January 23, 2025 End: January 23, 2025 Dr. Garo Steele MD Referring Provider Active Start: January 23, 2025 End: January 23, 2025 SHAMAR Ba Attending Provider Active S tart: January 23, 2025 End: January 23, 2025 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 Relationship Specialty Start Date End Date Garo Steele MD [address] [place] [address] PCP - General Internal Medicine 06/27/22 Rosa Washburn, EVI.CHRISTIANO [address] [place] [address] Construction Tech Internal Medicine 05/23/24 Team Status: Active Member Role/Relationship Status Dates Dr. Garo Steele MD Primary Care Provider Active Start: January 31, 2025 Dr. Garo Steele MD Referring Provider Active Start: January 31, 2025 Dr. Jimmie Newell MD Attending Provider Active Start: January 31, 2025 Team Status: Inactive Member Role/Relationship Status Dates Dr. Garo Steele MD Primary Care Provider Active Start: January 31, 2025 End: January 31, 2025 Dr. Clay Jean MD Attending Provider Active S tart: January 31, 2025 End: January 31, 2025 Team Status: Inactive Member Role/Relationship Status Dates Dr. Garo Steele MD Primary Care Provider Active Start: January 31, 2025 End: January 31, 2025 Dr. Garo Steele MD Referring Provider Active Start: January 31, 2025 End: January 31, 2025 Dr. Jimmie Newell MD Attending Provider Active Start: January 31, 2025 End: January 31, 2025 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 Relationship Specialty Start Date End Date Garo Steele [address] [place] [address] PCP - General Internal Medicine 11/04/22 Team Status: Active Member Role/Relationship Status Dates Dr. Garo Steele MD Primary care physician Activ e Team Status: Inactive Member Role/Relationship Status Dates Dr. Garo Steele MD Primary care physician Activ e Start: December 09, 2024 End: December 09, 2024 Dr. Garo Steele MD Referring Provider Active Start: December 09, 2024 End: December 09, 2024 Dr. Gomez Reynoso DO Attending physician Active Start: December 09, 2024 End: December 09, 2024 Team Status: Active Member Role/Relationship Status Dates Dr. Garo Steele MD Primary care physician Activ e Start: December 09, 2024 Dr. Garo Steele MD Referring Provider Active Start: December 09, 2024 Dr. Gomez Reynoso DO Attending physician Active Start: December 09, 2024 Dr. Gomez Reynoso DO Nurse Practitioner Active Start: December 09, 2024 Team Status: Inactive Member Role/Relationship Status Dates Dr. Garo Steele MD Primary care physician Activ e Start: December 12, 2024 End: December 12, 2024 Dr. Garo Steele MD Attending physician Active Start: December 12, 2024 End: December 12, 2024 Dr. Garo Steele MD Referring Provider Active Start: December 12, 2024 End: December 12, 2024 Team Status: Inactive Member Role/Relationship Status Dates Dr. Garo Steele MD Primary care physician Activ e Start: December 29, 2024 End: December 29, 2024 SHAMAR Ba Attending physician Active Start: December 29, 2024 End: December 29, 2024 SHAMAR Ba Referring Provider Active S tart: December 29, 2024 End: December 29, 2024 Team Status: Inactive Member Role/Relationship Status Dates Dr. Garo Steele MD Primary care physician Activ e Start: January 03, 2025 End: January 03, 2025 Dr. Garo Steele MD Referring Provider Active Start: January 03, 2025 End: January 03, 2025 SHAMAR Ba Attending physician Active Start: January 03, 2025 End: January 03, 2025 Team Status: Inactive Member Role/Relationship Status Dates Dr. Garo Steele MD Primary care physician Activ e Start: January 23, 2025 End: January 23, 2025 Dr. Garo Steele MD Referring Provider Active Start: January 23, 2025 End: January 23, 2025 SHAMAR Ba Attending physician Active Start: January 23, 2025 End: January 23, 2025 Team Status: Inactive Member Role/Relationship Status Dates Dr. Garo Steele MD Primary care physician Activ e Start: January 31, 2025 End: January 31, 2025 Dr. Garo Steele MD Referring Provider Active Start: January 31, 2025 End: January 31, 2025 Dr. Jimmie Newell MD Attending physician Active Start: January 31, 2025 End: January 31, 2025 Team Status: Inactive Member Role/Relationship Status Dates Dr. Garo Steele MD Primary care physician Activ e Start: January 31, 2025 End: January 31, 2025 Dr. Clay Jean MD Attending physician Active Start: January 31, 2025 End: January 31, 2025 Team Status: Inactive Member Role/Relationship Status Dates Dr. Garo Steele MD Primary care physician Activ e Start: March 14, 2025 End: March 14, 2025 Dr. Jimmie Newell MD Attending physician Active Start: March 14, 2025 End: March 14, 2025 Dr. Jimmie Newell MD Referring Provider Active Start: March 14, 2025 End: March 14, 2025 Team Status: Active Member Role/Relationship Status Dates Dr. Garo Steele MD Primary care physician Activ e Start: March 14, 2025 Dr. Jimmie Newell MD Referring Provider Active Start: March 14, 2025 Dr. Jimmie Newell MD Nurse Practitioner Active Start: March 14, 2025 JESSICA Lan Attending physician Active Start : March 14, 2025 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 Relationship Specialty Start Date End Date Garo Steele [address] [place] [address] PCP - General Internal Medicine 11/04/22 Team Status: Inactive Member Role/Relationship Status Dates Dr. Garo Steele MD Primary care physician Activ e Start: March 17, 2025 End: March 17, 2025 Dr. Gaor Steele MD Referring Provider Active Start: March 17, 2025 End: March 17, 2025 Dr. Jimmie Newell MD Attending physician Active Start: March 17, 2025 End: March 17, 2025 Team Status: Inactive Member Role/Relationship Status Dates Dr. Garo Steele MD Primary care physician Activ e Start: December 12, 2024 End: December 12, 2024 Dr. Garo Steele MD Attending physician Active Start: December 12, 2024 End: December 12, 2024 Dr. Garo Steele MD Referring Provider Active Start: December 12, 2024 End: December 12, 2024 Team Status: Inactive Member Role/Relationship Status Dates Dr. Garo Steele MD Primary care physician Activ e Start: December 29, 2024 End: December 29, 2024 SHAMAR Ba Attending physician Active Start: December 29, 2024 End: December 29, 2024 SHAMAR Ba Referring Provider Active S tart: December 29, 2024 End: December 29, 2024 Team Status: Inactive Member Role/Relationship Status Dates Dr. Garo Steele MD Primary care physician Activ e Start: January 03, 2025 End: January 03, 2025 Dr. Garo Steele MD Referring Provider Active Start: January 03, 2025 End: January 03, 2025 SHAMAR Ba Attending physician Active Start: January 03, 2025 End: January 03, 2025 Team Status: Inactive Member Role/Relationship Status Dates Dr. Garo Steele MD Primary care physician Activ e Start: January 23, 2025 End: January 23, 2025 Dr. Garo Steele MD Referring Provider Active Start: January 23, 2025 End: January 23, 2025 LOUIE BaC Attending physician Active Start: January 23, 2025 End: January 23, 2025 Team Status: Inactive Member Role/Relationship Status Dates Dr. Garo Steele MD Primary care physician Activ e Start: January 31, 2025 End: January 31, 2025 Dr. Garo Steele MD Referring Provider Active Start: January 31, 2025 End: January 31, 2025 Dr. Jimmie Newell MD Attending physician Active Start: January 31, 2025 End: January 31, 2025 Team Status: Inactive Member Role/Relationship Status Dates Dr. Garo Steele MD Primary care physician Activ e Start: January 31, 2025 End: January 31, 2025 Dr. Clay Jean MD Attending physician Active Start: January 31, 2025 End: January 31, 2025 Team Status: Inactive Member Role/Relationship Status Dates Dr. Garo Steele MD Primary care physician Activ e Start: March 14, 2025 End: March 14, 2025 Dr. Jimmie Newell MD Attending physician Active Start: March 14, 2025 End: March 14, 2025 Dr. Jimmie Newell MD Referring Provider Active Start: March 14, 2025 End: March 14, 2025 Team Status: Active Member Role/Relationship Status Dates Dr. Garo Steele MD Primary care physician Activ e Start: March 14, 2025 Dr. Jimmie Newell MD Referring Provider Active Start: March 14, 2025 Dr. Jimmie Newell MD Nurse Practitioner Active Start: March 14, 2025 JESSICA Lan Attending physician Active Start : March 14, 2025 Team Status: Inactive Member Role/Relationship Status Dates Dr. Garo Steele MD Primary care physician Activ e Start: March 17, 2025 End: March 17, 2025 Dr. Garo Steele MD Referring Provider Active Start: March 17, 2025 End: March 17, 2025 Dr. Jimmie Newell MD Attending physician Active Start: March 17, 2025 End: March 17, 2025 Team Status: Inactive Member Role/Relationship Status Dates Dr. Garo Steele MD Referring Provider Active Start: March 24, 2025 End: March 24, 2025 Dr. Jimmie Newell MD Attending physician Active Start: March 24, 2025 End: March 24, 2025 Team Status: Inactive Member Role/Relationship Status Dates JESSICA Lan Attending physician Active Start : March 28, 2025 End: March 28, 2025 Source Comments (unrecognize d section and content) In the event this informatio n is protected by the Federal Confidentiality of Alcohol and Drug Abuse Patient Records regulations: The Federal rules restrict any use of the information to criminally investigate or prosecute any alcohol or drug abuse patient.[facility] the event this information is protected by the Federal Confidentiality of Alcohol and Drug Abuse Patient Records regulations: The Federal rules restrict any use of the information to criminally investigate or prosecute any alcohol or drug abuse patient.[facility] the event this information is protected by the Federal Confidentiality of Alcohol and Drug Abuse Patient Records regulations: The Federal rules restrict any use of the information to criminally investigate or prosecute any alcohol or drug abuse patient.[facility] the event this information is protected by the Federal Confidentiality of Alcohol and Drug Abuse Patient Records regulations: The Federal rules restrict any use of the information to criminally investigate or prosecute any alcohol or drug abuse patient.[facility] the event this information is protected by the Federal Confidentiality of Alcohol and Drug Abuse Patient Records regulations: The Federal rules restrict any use of the information to criminally investigate or prosecute any alcohol or drug abuse patient.[facility] the event this information is protected by the Federal Confidentiality of Alcohol and Drug Abuse Patient Records regulations: The Federal rules restrict any use of the information to criminally investigate or prosecute any alcohol or drug abuse patient.[facility] the event this information is protected by the Federal Confidentiality of Alcohol and Drug Abuse Patient Records regulations: The Federal rules restrict any use of the information to criminally investigate or prosecute any alcohol or drug abuse patient.[facility] the event this information is protected by the Federal Confidentiality of Alcohol and Drug Abuse Patient Records regulations: The Federal rules restrict any use of the information to criminally investigate or prosecute any alcohol or drug abuse patient.[facility] the event this information is protected by the Federal Confidentiality of Alcohol and Drug Abuse Patient Records regulations: The Federal rules restrict any use of the information to criminally investigate or prosecute any alcohol or drug abuse patient.[facility] the event this information is protected by the Federal Confidentiality of Alcohol and Drug Abuse Patient Records regulations: The Federal rules restrict any use of the information to criminally investigate or prosecute any alcohol or drug abuse patient.[facility] the event this information is protected by the Federal Confidentiality of Alcohol and Drug Abuse Patient Records regulations: The Federal rules restrict any use of the information to criminally investigate or prosecute any alcohol or drug abuse patient.[facility] the event this information is protected by the Federal Confidentiality of Alcohol and Drug Abuse Patient Records regulations: The Federal rules restrict any use of the information to criminally investigate or prosecute any alcohol or drug abuse patient.[facility] the event this information is protected by the Federal Confidentiality of Alcohol and Drug Abuse Patient Records regulations: The Federal rules restrict any use of the information to criminally investigate or prosecute any alcohol or drug abuse patient.[facility] the event this information is protected by the Federal Confidentiality of Alcohol and Drug Abuse Patient Records regulations: The Federal rules restrict any use of the information to criminally investigate or prosecute any alcohol or drug abuse patient.[facility] the event this information is protected by the Federal Confidentiality of Alcohol and Drug Abuse Patient Records regulations: The Federal rules restrict any use of the information to criminally investigate or prosecute any alcohol or drug abuse patient.[facility] the event this information is protected by the Federal Confidentiality of Alcohol and Drug Abuse Patient Records regulations: The Federal rules restrict any use of the information to criminally investigate or prosecute any alcohol or drug abuse patient.[facility] FOR RECORDS PERTAINING TO PATIENTS WHO ARE OR HAVE BEEN ENROLLED IN A CHEMICAL DEPENDENCY/SUBSTANCEABUSE PROGRAM, SOME INFORMATION MAY BE OMITTED. This clinical summary was aggregated from multiple sources. Caution should be exercised in using it in the provision of clinical care. This summary normalizes information from multiple sources, and as a consequence, information in this document may materially change the coding, format and clinical context of patient data. In addition, data may be omitted in some cases. CLINICAL DECISIONS SHOULD BE BASED ON THE PRIMARY CLINICAL RECORDS. [facility] [employer] [facility]. provides no warranty or guarantee of the accuracy or completeness of information in this document.
[2025-04-20 09:25] LABS: AST(SGOT) 17 U/L (<=31); Alanine Aminotransfer ALT/SGPT 9 U/L (<=34); Albumin, Serum 4.2 g/dL (3.4-4.8); Alkaline Phosphatase 58 U/L (35-104); Bilirubin, Direct 0.15 mg/dL (0.00-0.30); Cholesterol 200 mg/dL (<=200); Globulin 2.3 g/dL (2.2-4.2); Low Density Lipoprotein Calc. 122 mg/dL; Triglycerides 71 mg/dL; Very Low Density Lipoprotein 14 mg/dL (5-40); cholesterol:hdl ratio screen 3.07
== END | disposition home or self-care (01) ==
LOC: LAB 07:23
PROVIDERS: PCP Internal Medicine; Referring Provider Nurse Practitioner Gerontology; Visit Provider Nurse Practitioner Gerontology
DX: E78.00 Pure hypercholesterolemia, unspecified (principal)
CPT/HCPCS: 36415; 80061; 80076

== ENCOUNTER → 2025-04-24 | Outpatient (CLI) | payer MEDICARE, SELFPAY ==
--- NOTE | 2025-04-24 16:15 | RAD_ITS ---
EXAM: XR Left Fingers, 2 or More Views CLINICAL INDICATION: MUCOUS CYST S/P EXCISIONN WITH PAIN TECHNIQUE: Frontal, lateral and oblique views of the fingers of the left hand. COMPARISON: No relevant prior studies available. 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 No acute fracture. No dislocation. SOFT TISSUES: Soft tissue swelling. No radiopaque foreign body. RAD/Finger(s) Min 2 Views IMPRESSION: 1. Soft tissue swelling. 2. 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 Reading Location: [id number]
--- OUTSIDE RECORDS SUMMARY | 2025-04-24 19:24 | XMS RPT_ITS | CCD ---
Author Organization [facility] Care Team Providers Care Sexual Health Physician Name Role Phone Unavailable Primary Care Provider Dr. Geovanni Gatica Chi Primary Care Provider Dr. Geovanni Foreman Chi Referring Provider Dr. Karolina Leong Attending Provider [phone] Dr. Karolina Leong Primary Care Provider Dr. Karolina Leong Referring Provider Dr. Haily Arredondo Attending Provider Dr. Karolina Leong Attending Provider Dr. Karolina Leong Primary Care Provider Dr. [...] COLEMAN, Garo Yanez Primary Care Provider Wu SALESPERSON [place].MANAGER [place], Rosa M Unavailable Cedric COLEMAN, Dr. Wyman Primary Care Provider Cedric COLEMAN, Dr. Wyman Attending Provider Cedric COLEMAN, Dr. Wyman Referring Provider José CUT FILE CLERK-CDangelo Attending Provider Steven CUT FILE CLERK-C, Le Attending Provider Cedric COLEMAN, Dr. Wyman Primary Care Provider Cedric COLEMAN, Dr. Wyman Referring Provider Cedric COLEMAN, Dr. Wyman Attending Provider Angeles CUNNINGHAM, Dr. Dyer Attending Provider Angeles CUNNINGHAM, Dr. Dyer Other Provider Cedric COLEMAN, Dr. Wyman Attending Provider Steven CUT FILE CLERK-C, Le Referring Provider Reece COLEMAN, Dr. Samuel Attending Provider Ted COLEMAN, Dr. Williamson Attending Provider Cedric COLEMAN, Dr. Wyman Primary Care Physician Cedric COLEMAN, Dr. Wyman Referring Provider Dr. Gomez Reynoso DO Attending Physician Angeles CUNNINGHAM, Dr. Dyer Nurse Practitioner Cedric COLEMAN, Dr. Wyman Attending Physician Steven MELGAR-CLe Attending Physician Reece COLEMAN, Dr. Samuel Attending Physician Ted COLEMAN, Dr. Williamson Attending Physician Reece COLEMAN, Dr. Samuel Referring Provider Reece COLEMAN, Dr. Samuel Nurse Practitioner Jessy Schaffer Attending Physician ALTAF METZ Attending Unavailable STEELE, GARO Primary Care Unavailable METZALTAF Chavez Attending Unavailable JAYLAN GAN Referring Unavailable STEELE, GARO Primary Care Unavailable [...] Physician Cedric COLEMAN, Dr. Wyman Referring Provider NABIL KIM Attending Unavailable STEELE, LEOPOLDO Primary Care Unavailable STEELE, LEOPOLDO Referring Unavailable STEELE, LEOPOLDO Attending Unavailable STEELE, LEOPOLDO Primary Care Unavailable STEELE, LEOPOLDO Attending Unavailable STEELE, LEOPOLDO Primary Care Unavailable STEELE, LEOPOLDO Referring Unavailable STEELE, LEOPOLDO Primary Care Unavailable STEELE, LEOPOLDO Referring Unavailable STEELE, LEOPOLDO Primary Care Unavailable Steele, Garo Referring Unavailable Gomez Reynoso Attending Unavailable Gomez Reynoso Consulting Unavailable Steele, Garo Primary Care Unavailable Clay Jean Attending Unavailable Dangelo Cevallos Referring Unavailable Dangelo Cevallos Consulting Unavailable Steele, Garo Primary Care Unavailable Steele, Garo Primary Care Unavailable Steele, Garo Referring Unavailable Le Harris Attending Unavailable Jimmie Newell Attending Unavailable Cedric, Garo Referring Unavailable Jessy Roman Attending Unavailable Jimmie Newell Attending Unavailable Dangelo Cevallos Referring Unavailable Dangelo Cevallos Attending Unavailable Steele, Garo Primary Care Unavailable Jessie, Yiying Referring Unavailable Steele, Garo Primary Care Unavailable Jessie, Jessy Attending Unavailable Siska, Jimmie Referring Unavailable Siska, Jimmie Attending Unavailable Steele, Garo Primary Care Unavailable Siska, Jimmie Attending Unavailable Steele, Garo Referring Unavailable Steele, Garo Primary Care Unavailable Jessie, Jessy Attending Unavailable Steele, Garo Primary Care Unavailable Clay Jean Attending Unavailable Steele, Garo Referring Unavailable Steele, Garo Primary Care Unavailable Jessie, Jessy Attending Unavailable Siska, Jimmie Attending Unavailable Siska, Jimmie Consulting Unavailable Siska, Jimmie Referring Unavailable Steele, Garo Primary Care Unavailable Steele, Garo Primary Care Unavailable Steven, Le Attending Unavailable Steele, Garo Referring Unavailable Siska, Jimmie Attending Unavailable Steele, Garo Primary Care Unavailable Steele, Garo Referring Unavailable Gomez Reynoso Attending Unavailable Steele, Garo Primary Care Unavailable Steven, Le Referring Unavailable Steven, Le Attending Unavailable Steele, Garo Primary Care Unavailable José, Dangelo Referring Unavailable Dangelo Cevallos Attending Unavailable Steele, Garo Primary Care Unavailable Steele, Garo Referring Unavailable Steele, Garo Attending Unavailable Steele, Garo Primary Care Unavailable Steele, Garo Referring Unavailable Gomez Ryenoso Attending Unavailable Steele, Garo Primary Care Unavailable Steele, Garo Referring Unavailable Dangelo Cevallos Attending Unavailable Steele, Garo Primary Care Unavailable Steele, Garo Referring Unavailable Le Harris Attending Unavailable Steele, Garo Primary Care Unavailable Allergies Allergy Classification Reported Allergen(s) Allergy Type Date of Onset Reaction(s) Facility (20 sources) Iodinated Contrast Media; Translations: [IODINATED CONTRAST MEDIA] Allergy to substance 4 Itching [facility] Work Phone: Comment on above: sweating (1 source) ALLERGIES NOT ON FILE; Translations: [ALLERGIES NOT ON FILE] Propensity to adverse reactions (disorder) [facility] 2 Repository (9 sources) rosuvastatin Drug Allergy 5 Myalgia [facility] (1 source) rosuvastatin Drug Allergy 5 [facility] Repository Medications Current Medications Medication Drug Class(es) [...] powder, diclofenac sodium powder, gabapentin powder, lidocaine CORRECTION powder in cream base (CPD) (8 sources) Start: 10-13-2024 apply 1-2 g topically every six hours as needed baclofen powder, diclofenac sodium powder, gabapentin powder, lidocaine CORRECTION powder in cream base (CPD) Apply 1-2 [...] 40 mg PO TWICE A DAY 60 3 January 23, 2025 12:00am January 30, 2025 [...] 9:02am Start: 11-12-2021 take 1 tablet by [facility] once daily Magnesium 200 mg tablet Active [...] 5 mg melatonin, ashwaganda 125 mg, and [id number] mg Active VALERIAN PO Take 400 mg by mouth daily. With 5 mg melatonin, ashwaganda 125 mg, and [id number] mg 0 Active Completed/Discontinued Medications Medication Drug [...] on above: Take 1 capsule by mo uth once daily as needed (back pain). Take 1 capsule by mo uth once daily as needed for pain (back [...] each 0 03/24/2023 04/09/2023 Active estrogens, conjugated (custodial) 0.625 mg/ml vaginal cream (2 sources) Estrogen [...] Discontinued 20 mg PO AT BEDTIME 30 January 03, 2025 1:56pm January 23, 2025 9:03am Start: 03-24-2023 End: 03-25-2023 take 20 mg by mouth twice daily 20 mg, Oral, 2 times d aily, First dose on Thu03/24/23 at 2100, Phase [...] on above: Take 1 capsule by mo [facility] daily at bedtime for 90 days. Take 3 capsules by [facility] twice daily. 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 Popswab 2 Swab 1 ml ketorolac tromethamine [...] capsule (20 sources) Proton Pump Inhibitor Start: 014 End: take 1 capsule by mouth once [...] 20 mg PO TWICE A DAY 60 November 14, 2024 12:00am January 03, 2025 [...] 20 mg PO TWICE A DAY 60 January 03, 2025 12:00am January 23, 2025 [...] obstruction or gangrene; Translations: [Hiatal hernia] Onset: 5 Episodic Administrative/social admission (3 sources) Persons encountering [...] Translations: [Encounter for screening for depression] Onset: Episodic Skin and subcutaneous tissue infections (2 sources) Cellulitis of left finger; Translations: [Cellulitis, unspecified] Onset: Episodic Superficial injury; contusion (20 sources) Contusion [...] Translations: [Dysphagia, unspecified] Onset: 12-28-2024 Episodic Other nervous system disorders (20 sources) [...] Test Name Value Interpretation Reference Range Facility Plastic Surgery Visit Report on 04-21-2025 Plastic Surgery Visit Report [facility] Plastic Reconstructive Surgery [address], [address] [place] [address] OFFICE VISIT Date of Service: 04/21/25 MR#: [id number] Acct: [id number] Name: TARIK DUNHAM Rep #: [id number] : 1950 Provider: JESSICA Mahajan Age/Sex: 75/F Location: [facility] Status: Signed with Addenda ADDENDUM by Dr. Jimmie Newell MD on 04/21/25 at 1627 Assessment and Plan (No Qualifiers) Assessment and Plan (1) Cellulitis: Status: Acute (2) Mucous cyst of digit of left hand: Status: Acute Plan I saw and examined the patient today I believe that from discussion with her she is using the finger a lot more than she was when it was in the splint and this is causing pain and some swelling, which is anticipated. Today there is limited redness and appropriate swelling. There is no induration. There is no signs of fluid collection. There is minimal pain with axial loading on my exam. I do not think she has a septic joint at this time. I reviewed the x-rays. I think we should empirically continue doxycycline and Augmentin, given her subjective increase in pain and redness/swelling, and I will have close follow-up with her on Thursday, 24 April 2025. Patient happy with the plan. 04/21/25 1627 Date Jimmie Newell MD cc: * Signed Intake Vital Signs 3 03/24/25 10:27 04/21/25 15:31 Height 5 ft 5 in BP 129/76 H Blood Pressure Location Lt brachial Position Sitting Respiration 16 Pulse 66 Pulse Source Monitor Temp 98.4 F Temp Source Temporal Pulse Oximetry (%) 97 Oxygen Delivery Method room air Intake Visit Reasons: post op Chief Complaint: cyst on left index finger post op Is patient in pain?: Yes Allergies Iodinated Contrast Media (Iodinated Contrast Media - IV Dye) Allergy (Verified 04/21/25 15:30) Itching rosuvastatin Adverse Reaction (Verified 04/21/25 15:30) Myalgia Medications 3 ???Medication ???Instructions ???Recorded ???Confirmed ???Type calcium-magnesium 750 mg-465 mg 1 tab PO DAILY 12/08/24 04/21/25 H istory tablet magnesium carb,citrate,oxide 100 mg PO DAILY 12/08/24 04/21/25 History (Magnesium Complex) ezetimibe 10 mg tablet (Zetia) 10 mg PO QDAY #30 tabs 12/20/24 Rx famotidine 20 mg tablet 20 mg PO QHS #90 tabs 01/23/2501/06 Rx esomeprazole magnesium 40 mg 40 mg PO QDAY #90 caps 01/30/25 Rx capsule,delayed release amoxicillin 875 mg-potassium 1 tab PO Q12H 7 days #14 tabs 11/0604/21/25 Rx clavulanate 125 mg tablet cephalexin 500 mg capsule 500 mg PO TID 04/19/25 04/21/25 Hi story doxycycline monohydrate 100 mg 100 mg PO BID 7 days #14 caps 11/0604/21/25 Rx capsule Have you fallen in the past year?: No Nurse's Note: pt concerned about infection Subjective Details: Date of Procedure:03/14/25 Pre-Operative Diagnosis: Left index finger mucous cyst Post-Operative Diagnosis: Same Surgery/Procedure Performed: 1) Excision left index finger mucous cyst 03/24/2025: She completed 7 day course of oral Keflex. She is postop day 10 and continues to do well. She is doing gentle range of motion with her PIP joint. She denies incisional drainage, fever, chills, new numbness, weakness, tingling. Discussed pathology findings. A. Skin, left index finger, ???mucus cyst???, biopsy: Ganglion cyst 03/28/2025: Patient is 2 weeks postop presenting today for suture removal. Continues to do well without recurrence. Still has PIP joint stiffness. 04/11/25: 4 weeks postop. DC'd splint, advised to move DIP joint. 04/19/25: She was doing well until about a week ago she noticed increased DIP joint pain, swelling and redness without drainage. She denied trauma. She did get her nails done 1-2 weeks ago with light cuticle work but not too far. She was at her PCP's office for wellness check and mentioned her symptoms and there was concern for infection and she was started on a course of Keflex. She states after taking 3 doses she's already noticed improvement in pain and redness. She notes some tingling on the ulnar side of her distal tip of finger. Xray was negative for bone infection. She was switched to doxycyline and Augmentin. Denies fever, chills. Current encounter 04/21/25: She returns for reassessment after being on Doxy and Augmentin. She is 5 weeks out today. She states pain is associated with use and better with rest and elevation. She notes the redness improves but appear to return by the end of the 12hr window from her antibiotics. After her splint was DC'd end of March she was making sure to move her finger and exercise it putty when she's watching TV in the evening. Denies fever, chills, drainage. Objective Details: VSS. Left upper extremity (more content not included)... Normal [facility] Lipid Profileon 04-20-2025 CHOL:HDL 3.07 Normal [facility] Comment on above: Performed By: #### L 500.4100, L500.3400 ####[facility] [address] [place], [address] Cholesterol [Mass/Vol] 200 mg/dL Normal <=200 [facility] Comment on above: Result Comment: Chol esterol level, Desirable <200 mg/dL Borderline high cholesterol 200-239 mg/dL High cholesterol >=240 mg/dL Recommendations of the NCEP Adult Treatment Panel for the following risk-cutoff thresholds for the [place] population. Performed By: #### L 500.4100, L500.3400 ####[facility] [address] [place], [address] Cholesterol in HDL [Mass/Vol] 65 mg/dL Normal [facility] Comment on above: Result Comment: [place] Ann onal Cholesterol Education Program (NCEP) guidelines: <40 mg/dL: Low HDL-cholesterol (major risk factor for CHD) >= 60 mg/dL: High HDL-cholesterol (negative risk factor for CHD) HDL-cholesterol is affected by a number of factors, e.g. smoking, exercise, hormones, sex and age. Performed By: #### L 500.4100, L500.3400 ####[facility] [address] [place], [address] Cholesterol in LDL [Mass/Vol] 122 mg/dL Normal [facility] Comment on above: Result Comment: Bord nhosmj=071-301 mg/dL Higher Pnmh=370 mg/dL or greater Diaz Equation 2020 for LDL-C Performed By: #### L 500.4100, L500.3400 ####[facility] [address] [place], [address] Cholesterol in VLDL [Mass/Vol] 14 mg/dL Normal 5-40 [facility] Comment on above: Performed By: #### L 500.4100, L500.3400 ####[facility] [address] [place], [address] Triglyceride [Mass/Vol] 71 mg/dL Normal [facility] Comment on above: Result Comment: The drugs N-Acetylcysteine and Metamizole may falsely depress this assay. Normal range: <150 mg/dL Borderline High: 150-199 mg/dL High: 200-499 mg/dL Very High: >500 mg/dL Performed By: #### L 500.4100, L500.3400 ####[facility] [address] [place], [address] Liver Profileon 04-20-2025 Albumin [Mass/Vol] 4.2 g/dL Normal 3.4-4.8 [facility] Comment on above: Performed By: #### L 500.4100, L500.3400 ####[facility] [address] [place], [address] ALK PHOS 58 U/L Normal 35-104 [facility] Comment on above: Performed By: #### L 500.4100, L500.3400 ####[facility] [address] [place], [address] ALT [Catalytic activity/Vol] 9 U/L Normal <=34 [facility] Comment on above: Performed By: #### L 500.4100, L500.3400 ####[facility] [address] [place], [address] AST [Catalytic activity/Vol] 17 U/L Normal <=31 [facility] Comment on above: Performed By: #### L 500.4100, L500.3400 ####[facility] [address] [place], [address] Bilirubin [Mass/Vol] 0.35 mg/dL Normal 0.00-1.30 [facility] Comment on above: Performed By: #### L 500.4100, L500.3400 ####[facility] [address] [place], [address] Bilirubin.direct [Mass/Vol] 0.15 mg/dL Normal 0.00-0.30 [facility] Comment on above: Performed By: #### L 500.4100, L500.3400 ####[facility] [address] [place], [address] Globulin (S) [Mass/Vol] 2.3 g/dL Normal 2.2-4.2 [facility] Comment on above: Performed By: #### L 500.4100, L500.3400 ####[facility] [address] [place], [place], [address] T PROT 6.4 g/dL Normal 5.9-8.4 [facility] Comment on above: Performed By: #### L 500.4100, L500.3400 ####[facility] [address] [place], [address] CNPNon 04-19-2025 CNPN Telephone (INTMWS) TARIK DUNHAM ([id number]) 1950 F Date Time Provider Department 04/19/25 GARO STEELE INTWS During your visit today, we recorded the following information about you: Ivette Vizcaino RN 04/19/2025 2:41 PM Signed Faxed bone density order to [facility] per pt request. Reports [facility] couldn't get her in until Jul. [facility] can get her in next week. Allergies As of Date: 04/19/2025 Noted Allergy Reaction IODINATED CONTRAST MEDIA 12/15/2013 9 - Itching Date Reviewed: 04/18/2025 Reviewed by: Yesy Hawk LPN - Fully Assessed Reason for Visit: Faxed to [facility] [Other] Prescriptions as of 04/19/2025 - esomeprazole (NEXIUM) 40 mg capsule Take 1 capsule by mouth once daily. - famotidine (PEPCID) 20 mg tablet Take 1 tablet by mouth daily at bedtime. - cephALEXin (KEFLEX) 500 mg capsule Take 1 capsule by mouth three times a day for 7 days. - baclofen powder, diclofenac sodium powder, gabapentin powder, lidocaine CORRECTION powder in cream base (CPD) Apply 1-2 g to affected area four times a day as needed. Baclofen2%;esxmwjvdsz59%;carissa zytosk96%;lidocaine6%. Per Altaf Metz MD (orthopedics). - ezetimibe [...] Encounter Status:Closed by Ivette VIZCAINO on 04/19/25 [facility] Min 2 Viewson Finger(s) Min 2 Views [facility] Imaging Services [address] [place], [place] [id number] Finger(s) Min 2 Views MR#: [id number] Acct: [id number] Name: TARIK DUNHAM Rep #: [id number] : 1950 F 75 From: Franki Trotter PCP: Dr. Garo Steele MD Status: REG CLI Study: Finger(s) Min 2 Views Date of Exam: 04/19/25 Exam# [id number] Ordering Dr: Jessy Roman PROCEDURE: FINGER(S) MIN 2 VIEWS 04/19/2025 REASON FOR EXAM: LEFT INDEX FINGER TECHNIQUE: Procedure Code: RADFIN Modality: DX Procedure: Three-view left 2nd finger series. Laterality: Left COMPARISON: 2025. RAD/Finger(s) Min 2 Views IMPRESSION: Prominent arthritic changes with marked joint narrowing and cortical irregularity of the left 2nd distal interphalangeal joint is seen, fairly similar in appearance to the prior study of 01/31/2025, but perhaps with greater surrounding soft tissue swelling. This is concerning for inflammatory arthritis. Mild degenerative changes of the remaining portions of the 2nd ray appear stable. Stable alignment is seen. No acute fracture or dislocation is evident. Reading Location: [place] [address] CC: Dr. Garo Steele MD; JESSICA Mahajan Community Health Education Coordinator: Signed Normal [facility] Plastic Surgery Visit Report on 04-19-2025 Plastic Surgery Visit Report [facility] Plastic Reconstructive Surgery [address], [address] [place] [address] OFFICE VISIT Date of Service: 04/19/25 MR#: [id number] Acct: [id number] Name: TARIK DUNHAM Rep #: [id number] : 1950 Provider: JESSICA Mahajan Age/Sex: 75/F Location: [facility] Status: Signed with Addenda ADDENDUM by Dr. Jimmie Newell MD on 04/19/25 at 1707 Assessment and Plan (No Qualifiers) Assessment and Plan (1) Cellulitis: Status: Acute (2) Mucous cyst of digit of left hand: Status: Acute Plan Details Additional Comments: Reviewed BLANCA note and agree 04/19/25 1707 Date Jimmie Newell MD cc: * Signed Intake Vital Signs 3 03/24/25 10:27 04/19/25 16:08 Height 5 ft 5 in BP 124/87 H Blood Pressure Location Lt brachial Position Sitting Respiration 18 Pulse 62 Pulse Source Monitor Pulse Oximetry (%) 98 Oxygen Delivery Method room air Intake Visit Reasons: follow up Chief Complaint: cyst on left index finger post op Is patient in pain?: Yes Allergies Iodinated Contrast Media (Iodinated Contrast Media - IV Dye) Allergy (Verified 04/19/25 16:07) Itching rosuvastatin Adverse Reaction (Verified 04/19/25 16:07) Myalgia Medications 3 ???Medication ???Instructions ???Recorded ???Confirmed ???Type calcium-magnesium 750 mg-465 mg 1 tab PO DAILY 12/08/24 04/19/25 H istory tablet magnesium carb,citrate,oxide 100 mg PO DAILY 12/08/24 04/19/25 History (Magnesium Complex) ezetimibe 10 mg tablet (Zetia) 10 mg PO QDAY #30 tabs 12/20/24 Rx famotidine 20 mg tablet 20 mg PO QHS #90 tabs 01/23/2511/06 Rx esomeprazole magnesium 40 mg 40 mg PO QDAY #90 caps 01/30/25 Rx capsule,delayed release amoxicillin 875 mg-potassium 1 tab PO Q12H 7 days #14 tabs 11/0604/19/25 Rx clavulanate 125 mg tablet cephalexin 500 mg capsule 500 mg PO TID 04/19/25 04/19/25 Hi story doxycycline monohydrate 100 mg 100 mg PO BID 7 days #14 caps 11/0604/19/25 Rx capsule Have you fallen in the past year?: No Nurse's Note: pt concerned about infection Subjective Details: Date of Procedure:03/14/25 Pre-Operative Diagnosis: Left index finger mucous cyst Post-Operative Diagnosis: Same Surgery/Procedure Performed: 1) Excision left index finger mucous cyst 03/24/2025: She completed 7 day course of oral Keflex. She is postop day 10 and continues to do well. She is doing gentle range of motion with her PIP joint. She denies incisional drainage, fever, chills, new numbness, weakness, tingling. Discussed pathology findings. A. Skin, left index finger, ???mucus cyst???, biopsy: Ganglion cyst 03/28/2025: Patient is 2 weeks postop presenting today for suture removal. Continues to do well without recurrence. Still has PIP joint stiffness. 04/11/25: 4 weeks postop. DC'd splint, advised to move DIP joint. Current encounter 04/19/25: She was doing well until about a week ago she noticed increased DIP joint pain, swelling and redness without drainage. She denied trauma. She did get her nails done 1-2 weeks ago with light cuticle work but not too far. She was at her PCP's office for wellness check and mentioned her symptoms and there was concern for infection and she was started on a course of Keflex. She states after taking 3 doses she's already noticed improvement in pain and redness. She notes some tingling on the ulnar side of her distal tip of finger. Denies fever, chills. Objective Details: VSS. Left upper extremity: Left index finger incision is well healed. Diffuse DIP joint edema slightly erythematous but without induration, no fluid collection, no warmth or fluctuance. Diffusely tender DIP joint with pain with axial load. Stiffness due to DIP joint swelling but able to flex and extend MCP, PIP, DIP. sensation intact to light touch Capillary refill <2 sec. No recurrence of mucous cyst. Coding Level of Care Code Global Post Op Diagnoses Cellulitis L03.90 Mucous cyst of digit of left hand M67.442 [facility] Medical History (Updated 04/19/25 @ 16:42 by JESSICA Lan) Cellulitis History of Kolb's esophagus Back problem Tinnitus [...] right cataract extraction Hx of left cataract (more content not included)... Normal [facility] CNOVon 04-18-2025 CNOV Office Visit (INTMWS ) TARIK DUNHAM ([id number]) 1950 F Date Time Provider Department 04/18/25 10:20 AM GARO STEELE INTMWS During your visit today, we recorded the following information about you: Pulse Blood pressure Weight Height 72/minute 102/68 67.4 kg 1.676 m Garo Steele MD 04/18/2025 2:46 PM Signed Tarik Mcconnell Charla is a 75 year old female here [...] PCP - General (Internal Medicine) Rosa Washburn APRN.MANAGER [place] as Mixing Tank Operator (Internal Medicine) Bud Stone MD (Surgery, Endoscopy) Nabil Kim APRN, CNP (Oncology) Outside specialists seen: Altaf Metz MD (Orthopedics) Clay Jean MD (Cardiology) Isidro Wong OD (Optometry) Abner Hermosillo MD (Plastic Reconstructive Surgery) [facility] Dermatology. Jimmie Newell MD (Plastic Surgeon) Cindy Reynoso MD (Gastroenterology) DME CPAP supplies: [employer]. Medical/Family history review Reviewed and updated problem [...] review all the medicines you take, even zawx-mto-jjlqzqf medicines. As you get older, the way [...] you ca (more content not included)... Normal [facility] Plastic Surgery Visit Report on 04-11-2025 Plastic Surgery Visit Report [facility] Plastic Reconstructive Surgery [address] [place], [place] [address] OFFICE VISIT Date of Service: 04/11/25 MR#: [id number] Acct: [id number] Name: TARIK DUNHAM Rep #: [id number] : 1950 Provider: Dr. Jimmie Newell MD Age/Sex: 75/F Location: [place] [address] Status: Signed Intake Vital Signs 03/24/25 10:27 [...] cyst of digit of left hand M67.442 [facility] Medical History History of Kolb's esophagus Back [...] Izquierdo Signature: Date (if applicable) CC: Normal [facility] Plastic Surgery Visit Report on 03-28-2025 Plastic Surgery Visit Report [facility] Plastic Reconstructive Surgery [address], [address] [place], [place] [address] OFFICE VISIT Date of Service: 03/28/25 MR#: [id number] Acct: [id number] Name: TARIK DUNHAM Rep #: [id number] : 1950 Provider: JESSICA Mahajan Age/Sex: 75/F Location: [facility].WPS[facility] Status: Signed Intake Vital Signs 3 03/24/25 [...] pathology findings. The case was examined at [facility] by Dr. Butler (#[id number]) and the following diagnosis was rendered. A. [...] cyst of digit of left hand M67.442 [facility] Medical History History of Kolb's esophagus Back [...] bilateral mastectom (more content not included)... Normal [facility] Plastic Surgery Visit Report on 03-24-2025 Plastic Surgery Visit Report [facility] Plastic Reconstructive Surgery [address], [address] [place] [address] OFFICE VISIT Date of Service: 03/24/25 MR#: [id number] Acct: [id number] Name: TARIK DUNHAM Rep #: [id number] : 1950 Provider: Dr. Jimmie Newell MD Age/Sex: 75/F Location: [facility] Status: Signed Intake [...] pathology findings. The case was examined at [facility] by Dr. Butler (#[id number]) and the following diagnosis was rendered. A. [...] cyst of digit of left hand M67.442 [facility] Medical History History of Kolb's esophagus Back [...] and Pl (more content not included)... Normal [facility] Plastic Surgery Visit Report on 03-17-2025 Plastic Surgery Visit Report [facility] Plastic Reconstructive Surgery [address], [address] [place] [address] OFFICE VISIT Date of Service: 03/17/25 MR#: [id number] Acct: [id number] Name: TARIK DUNHAM Rep #: [id number] : 1950 Provider: Dr. Jimmie Newell MD Age/Sex: 75/F Location: [facility] Status: Signed Intake Vital Signs 03/14/25 06:25 [...] cyst of digit of left hand M67.442 [facility] Medical History History of Kolb's esophagus Back [...] week 03/17/25 1110 Date Jimmie Newell MD Cosigner Signature: Date (if applicable) CC: Normal [facility] SURG PATH REQUESTon 03-17-20 Case Report Normal [facility] Comment on above: Result Comment: Surg ical Pathology Report Case: [id number] Authorizing Provider: Naina Degroot MD Collected: 03/17/2025 09:25 AM Ordering Location: Dermatopathology Received: 03/17/2025 09:26 AM [facility] Pathologist: Brian Butler MD Specimen: SURG PATH, SKIN, LEFT INDEX FINGER Performed By: #### S URGP #### [facility] (DEFAULT) [address] [place] [address] Clinical History "Pre-Op Diagnosis: M ucous cyst of digit of left hand". Received is a request for second opinion by Naina Degroot M.D. 75 F with clinical "mucus cyst" left index finger; biopsy. From Op Note:...draining mucus cyst is the eponychial fold...plan to debride the cyst stalk and osteophytes around the joint and let the cyst involute over time..." R/O neoplasia Normal [facility] Comment on above: Performed By: #### S URGP #### [facility] (DEFAULT) [address] [place] [address] Diagnosis Comments Thank you for the op portunity to consult with you on this case. Normal [facility] Comment on above: Performed By: #### S URGP #### [facility] (DEFAULT) [address] [place] [address] Gross Description Normal [facility] Comment on above: Result Comment: Rece ived from [facility], [address] [place], [place] [address], are three slides labeled [id number] (A1 H&E, A1 RECUT X3, A1 RECUT X6) and one paraffin block marked [id number] (A1). An identifying pathology report is included. Outside materials returned in 60 days under separate cover with our number recorded on them. Grosser for this case was: Vicenta Vick Performed By: #### S URGP #### [facility] (DEFAULT) [address] [address] Microscopic Description Normal [facility] Comment on above: Result Comment: A. H istologic sections show a pseudocystic space containing fibroblasts and mucin. Initial and multiple deeper sections were examined. p63 is negative. Immunoperoxidase staining was performed by the [facility] Histology Laboratory on sections cut from the paraffin block submitted by the outside facility. All controls show appropriate reactivity. All immunohistochemistry (IHC), in situ hybridization (MATTHIAS), and histochemical tests were developed by and are performed at the [facility] Clinical [facility], Histology and IHC Lab, [address] [place] [address], [place] [address]. All Immunofluorescent (IF) tests were developed by and are performed at the [facility], Renal Division, [address] [place] [address]. All tests reported here, except for PD-L1, have not been cleared by or approved by the US Food and Drug Administration (FDA). The laboratory is regulated under CLIA as qualified to perform high-complexity testing. The tests are used for clinical purposes. They should not be regarded as investigational or for research. Performed By: #### S URGP #### [facility] (DEFAULT) [address] [place] [address] Pathologic Diagnosis Normal [facility] Comment on above: Result Comment: OUTS BHASKAR SLIDES: [id number] (03/14/2025) A. Skin, left index finger, "mucus cyst", biopsy: Ganglion cyst. at 0921 EDT Performed By: #### S URGP #### [facility] (DEFAULT) [address] [place] [address] Professional Interpretation Performed at: [facility] Comment on above: Result Comment: [facility] For Immediate Release to [facility]'s [facility]? Yes [address], [address] [place] [address] Performed By: #### S URGP #### [facility] (DEFAULT) [address] [place] [address] Office Visiton 03-15-2025 Follow-up visit [id number] Perla Dunham 1950 F Date Provider Department Center 03/15/2025 [facility] None No family history on file Level of Service:[address] [place] OFFICE/OUTPATIENT ESTABLISHED MOD MDM 30 MIN Reason for Visit and Comments: Follow-up [051435] - F/u new dx- left hip pain- discuss options "may consider surgery" [facility] Progress Noteon 03-15-2025 Progress Note [facility] [address] [place] [address] [place] [address] Dept: [phone] Dept 03/15/2025 Chief Complaint Patient presents with [...] Resource Strain: Low Risk (10/12/2024) Received from [facility] Overall Financial Resource Strain (CARDIA) Difficulty of Paying Living Expenses: Not hard at all Food Insecurity: No Food Insecurity (10/12/2024) Received from [facility] Hunger Vital Sign Worried About Running Out of Food in the Last Year: Never true Ran Out of Food in the Last Year: Never true Transportation Needs: No Transportation Needs (10/12/2024) Received from [facility] PRAPARE - Transportation Lack of Transportation (Medical): No Lack of Transportation (Non-Medical): No Physical Activity: Insufficiently Active (10/12/2024) Received from [facility] Exercise Vital Sign Days of Exercise per Week: 3 days Minutes of Exercise per Session: 30 min Stress: No Stress Concern Present (10/12/2024) Received from [facility] [employer] [place] [employer] - Occupational Stress Questionnaire Feeling of Stress : Not at all Social Connections: Unknown (10/12/2024) Received from [facility] Social Connection and Isolation Panel [NHANES] Frequency of Communication with Friends and Family: More than three times a week Frequency of Social Gatherings with Friends and Family: More than three times a week Attends Ep[employer]opalian Services: More than 4 times per year Active Member of Clubs or Organizations: Patient declined Attends Club or Organization Meetings: Patient declined Marital Status: Intimate Partner Violence: Not on file Housing Stability: Unknown (12/07/2019) Received from [facility] Housing Stability Vital Sign Unable to Pay [...] 70, IR 10, ER 20, with pain. [facility] exam: positive. +PF/DF/EHL. SILT distally. DP/PT palpable. Straight leg raise negative for inciting radicular symptoms. The patient does have a leg length discrepancy and measures 3-4mm short on the left. Lab Findings: RELEVANT LABS: none Radiology Findings: 03/15/25 images ob (more content not included)... Normal [facility] Surgical pathology reportOrd ered By: Naina Degroot on 03-15-2025 Surgical pathology study [facility] XR ESOPHAGRAMon 03-15-2025 XR ESOPHAGRAM * * [...] column in the upper to mid esophagus. Community Health Education Coordinator: PSCB Transcribe Date/Time: Mar 15 2025 2:44P Dictated by : ASHWIN OVALLE MD This examination was interpreted and the report reviewed and electronically signed by: ASHWIN OVALLE MD on Mar 15 2025 2:49PM EST [id number] Normal [facility] H AND P Exam - Surgicalon H&P Exam - Surgical [facility] Medical Records Department [address] [place] [address] H P Exam - Surgical 03/14/25 0723 MR#: [id number] Acct: [id number] Name: TARIK DUNHAM Rep #: [id number] : 1950 75 From: Jessy LOPEZ PCP: Dr. Garo Steele MD Status:[facility] Location: [place] [address] HPI - General HPI Narrative TARIK DUNHAM, [...] the right hand, particularly in the fingertips. [facility] Medical History (Updated 02/28/25 @ 09:05 by [...] open without young (more content not included)... Normal [facility] MR/POSTOP.[facility] 03-14-2025 MR/POSTOP.[facility] Medical Records Department [address] [place] [address] Anesthesia Postop Eval I 03/14/25811 MR#: [id number] Acct: [id number] Name: TARIK DUNHAM Rep #: [id number] : 1950 75 From: Elzbieta Roblero CRNA PCP: Dr. Garo Steele MD Status:REG [facility] Y Race: C Location: [place] [address] Anesthesia: Postop Eval I Current Vital Signs [...] Roblero CRNA Cosigner Signature: Date CC: Signed Normal [facility] MR/SPPESPWF5th 03-14-2025 MR/POSTOPAN2 [facility] Medical Records Department [address] [place] [address] Anesthesia Postop Eval II 03/14/25912 MR#: [id number] Acct: [id number] Name: TARIK DUNHAM Rep #: [id number] : 1950 75 From: Aaron Malone MD PCP: Dr. Garo Steele MD Status:REG [facility] Y Race: C Location: [address] Anesthesia Postop Eval I Sum Postop Eval Completion status Anesthesia document: Postop Eval 1 completed: Yes Anesthesia Postop Eval I Summary Anesthesia Postop Eval I Summary: Anesthesia Postop Eval I: Assessment Summary Airway patent Yes 03/14/25 08:14 JAVA SUPPORT ENGINEER.HBARR Spontaneous unlabored Yes 03/14/25 08:14 JAVA SUPPORT ENGINEER.HBARR respirations Mental status Awake 03/14/25 08:14 JAVA SUPPORT ENGINEER.HBARR nausea No 03/14/25 08:14 JAVA SUPPORT ENGINEER.HBARR Vomiting No 03/14/25 08:14 JAVA SUPPORT ENGINEER.HBARR Anesthesia Postop Eval I: Fluid Summary Crystalloid volume administer 500 03/14/25 08:14 JAVA SUPPORT ENGINEER.HBARR (ml) Colloids volume administered ( ml) Blood Product volume administered (ml) Total IV fluid infused 500 03/14/25 08:14 JAVA SUPPORT ENGINEER.HBARR Anesthesia Postop Eval I: Summary Notes Anesthesia Complication No 03/14/25 08:14 JAVA SUPPORT ENGINEER.HBARR Anesthesia Complication Comment: Post-operative progress note Anesthesia: Postop Eval II Evaluation Mental status: Awake and Calm Pain Level: 1 nausea: No Vomiting: No Complications Anesthesia Complication: No 03/14/25912 Aaron Malone MD Cosigner Signature: Date CC: Signed Normal [facility] Operative Reporton 5 Operative Report [facility] Medical Records Department [address] [place] [address] Operative Report 03/14/25 0745 MR#: [id number] Acct: [id number] Name: TARIK DUNHAM Rep #: [id number] : 1950 75 From: Jimmie Newell MD PCP: Dr. Garo Steele MD Status:REG [facility] Location: [place] [address] Operative Report (Standard) Operative Information Date of Procedure: 03/14/25 Pre-Operative Diagnosis: Left index finger mucous cyst Post-Operative Diagnosis: Same Surgery/Procedure Performed: 1) Excision left index finger mucous cyst marklogic developer: Yes Acid Loader: Jessy Roman Tasks completed by human resources benefits assistant: Retracting Type of Anesthesia: Local MAC (7 [...] with interrupted 4-0 nylon sutures and Xeroform, Vreito, AlumaFoam splint (DIP joint extension) and Coban [...] the dorsal DIP joint. Complications Complications: No 03/14/25 0902 Cosigner Signature (if applicable): CC: Dr. Jimmie Newell MD; Dr. Garo Steele MD Signed Normal [facility] Surgery Specimen Level IIIon 03-14-2025 Surgery Specimen Level III ----- Patient Age/Sex Location Account Attending Physician ----- CHARLATARIK JAGDISH 75/F [facility] [id number] Dr. Jimmie Newell MD ----- Specimen: [id number] Received: 03/14/25 Status: SHEREE Arenas Num: [id number] Spec Type: Cyst Subm Dr: Dr. Jimmie Newell MD HEADER OPERATION: Excision mucous cyst left index finger PRE-OP DIAGNOSIS: Mucous cyst of digit of left hand TISSUE SUBMITTED: A- Left index finger cyst contents ----- MICROSCOPIC DIAGNOSIS A. Skin, left index finger, "mucus cyst", biopsy: * Diagnosis is PENDING expert consultation at [facility]. An addendum report will follow with the Final Diagnosis. MICROSCOPIC DESCRIPTION Slides are reviewed. GROSS DESCRIPTION A. Received in formalin labeled with the patient's name and date of . Designated as left index finger cyst contents" is a 0.6 x 0.4 x 0.1 cm aggregate of pink-solomon and white tissue fragments entirely submitted in 1 cassette. MT 03/14/2025 CPT:07719 ----- Patient Age/Sex Location Account Attending Physician ----- TARIK DUNHAM 75/F [facility] [id number] Dr. Jimmie Newell MD ----- Signed (signature on file) Dr. Naina Degroot MD 03/15/25 1445 ----- Normal [facility] Comment on above: Performed By: #### P DARELL JONES ####[facility] [id number], [address] Surgery Specimen Level [place] 03-14-2025 Surgery Specimen Level IV ----- Patient Age/Sex Location Account Attending Physician ----- TARIK DUNHAM 75/F [facility] [id number] Dr. Jimmie Newell MD ----- Specimen: [id number] Received: 03/14/25-1007 Status: SHEREE Villatoroveronica Num: [id number] Spec Type: Cyst Subm Dr: Dr. Jimmie Newell MD HEADER OPERATION: Excision mucous cyst left index finger PRE-OP DIAGNOSIS: Mucous cyst of digit of left hand TISSUE SUBMITTED: A- Left index finger cyst contents ----- MICROSCOPIC DIAGNOSIS A. Skin, left index finger, "mucus cyst", biopsy: * Diagnosis is PENDING expert consultation at [facility]. An addendum report will follow with the Final Diagnosis. MICROSCOPIC DESCRIPTION Slides are reviewed. GROSS DESCRIPTION A. Received in formalin labeled with the patient's name and date of . Designated as left index finger cyst contents" is a 0.6 x 0.4 x 0.1 cm aggregate of pink-solomon and white tissue fragments entirely submitted in 1 cassette. MT 03/14/2025 CPT:25459 ----- ADDENDUM Addendum 1 Entered: 03/20/25 This addendum is added to incorporate an outside pathology consultation report. The case was examined at [facility] by Dr. Butler (#[id number]) and the following diagnosis was rendered. A. Skin, left index finger, "mucus cyst", biopsy: Ganglion cyst. Microscopic Description: A. Histologic sections show a pseudocystic space containing fibroblasts and mucin. Initial and multiple deeper sections were examined. P63 is negative. ----- Patient Age/Sex Location Account Attending Physician ----- TARIK DUNHAM 75/F [facility] [id number] Dr. Jimmie Newell MD ----- ADDENDUM (Continued) Immunoperoxidase staining was performed by the [facility] Histologic Laboratory on sections cut from the paraffin block submitted by the outside facility. Please see complete above mentioned consultation report in EMR Addendum Signed (signature on file) Dr. Naina Degroot MD 03/20/25 0950 ----- ----- Patient Age/Sex Location Account Attending Physician ----- TARIK DUNHAM 75/F [facility] [id number] Dr. Jimmie Newell MD ----- Signed (signature on file) Dr. Naina Degroot MD 03/15/25 1445 ----- Normal [facility] Comment on above: Performed By: #### P DARELL JONES ####[facility] [id number] [place], [place], [address] CNOV 03-02-2025 OV Office Visit (AGGENS 4) TARIK DUNHAM ([id number]) 1950 F Date Time Provider Department 03/02/25 11:30 AM [facility]UD ST[facility] AGGENS4 During your visit today, we [...] 6-7 years. When she moved back to [place] 5 years ago her symptoms of GERD [...] BREAST RECONSTRUCTION Bilateral 12/2016 Dr. Gastelum in [place] TONSILLECTOMY PRIMARY/SECONDARY Tonsillectomy TOTAL KNEE REPLACEMENT Right 03/24/2023 [facility] VAG HYST 250 GM/< W/RMVL TUBEAND/OVARY 12/22/2013 TV[facility]/BSO WRIST RIGHT OP SURGERY Right 2018 ORIF Wrist fracture FAMILY HISTORY: FAMILY HISTORY Problem Relation Age of Onse (more content not included)... Normal [facility] MR/PATJluis 02-28-2025 MR/PAT.[facility] Medical Records Department [address] [place] [address] PAT - Anesthesia 02/28/25 0912 MR#: [id number] Acct: [id number] Name: TARIK DUNHAM Rep #: [id number] : 1950 74 From: Aaron Malone MD PCP: Dr. Garo Steele MD Status:PRE [facility] Y Race: C Location: [facility] Pre-Assessment Diagnosis/Proposed Procedure Planned Operative Procedure(s): EXCISION MUCOUS CYST LEFT INDEX FINGER Anesthesia History Anesthesia History - file conversion operator: Anesthesia History - file conversion operator Hx Hospitalization No 02/28/25 08:58 Any Problems [...] take am of surgery PONV PONV - file conversion operator: PONV - file conversion operator Female Yes 02/28/25 08:58 HX of Motion [...] 12/09/24 11:02 Respiratory Assessment Respiratory Assessment - file conversion operator: Respiratory Tract Infection Hx - file conversion operator Hx Respiratory Tract Infection No 02/28/25 08:58 STOP Sleep Apnea STOP Sleep Apnea - file conversion operator: STOP Sleep Apnea - file conversion operator Hx Hypertension No 02/28/25 08:58 Hx Sleep [...] 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 - file conversion operator: Tobacco Use History - file conversion operator Tobacco Use Smoking Status Never smoker 02/28/25 08:58 Hx Tobacco Use No 02/28/25 08:58 Years Smoking Packs Smoked per Day Smoking Cessation Date was within the last 15 years Hx Smoking Cessation Date Hx Smoking Cessation Counseling Hematologic Medial History Hematologic Hx - file conversion operator: 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 Normal [facility] 29on 02-06-2025 29 Addended by: JAYLAN GAN on: 02/06/2025 09:44 AM Modules accepted: Orders Normal [facility] 29 Addended by: ERICK WILDER on: 02/06/2025 09:33 AM Modules accepted: Orders [facility] 36on 02-06-2025 36 Just until 03-24-25 Please sign Normal [facility] 36 Name of caller: Jewell mary Contact phone number: [phone] Relationship to Patient: patient Provider: Isaías Practice: Ortho Chief Complaint/Reason for Call: Patient called in stating she has a dental cleaning appointment for tomorrow 02/07- wondering if she still needs a dental prophyaxis prior too. She is s/p left tka on 03/24/2023. If she does please send antibiotic to [facility] pharmacy in [place]. If she no longer needs the antibiotic please upload a letter in her mychart to show to the dental clinic as she does not have the fax number at this time. Best time of day caller can be reached: any Patient advised that office/PCP has 24-48 business hours to return their call: No Normal [facility] Finger(s) Min 2 Viewson 01-13 Finger(s) Min 2 Views [facility] Imaging Services [address] [place] [address] Finger(s) Min 2 Views MR#: [id number] Acct: [id number] Name: TARIK DUNHAM Rep #: [id number] : 1950 F 74 From: Sukumar jauregui MD PCP: Dr. Garo Steele MD Status: DEP AMB Study: Finger(s) Min 2 Views Date of Exam: 01/31/25 Exam# [id number] Ordering Dr: Jimmie Newell MD PROCEDURE: FINGER(S) [...] joint of the index finger. Reading Location: [id number] CC: Dr. Jimmie Newell MD; Dr. Garo Steele MD Community Health Education Coordinator: Signed Normal [facility] Plastic Surgery Visit Report on 01-31-2025 Plastic Surgery Visit Report [facility] Plastic Reconstructive Surgery [address] [place] [address], [address] [place] [address] OFFICE VISIT Date of Service: 01/31/25 MR#: [id number] Acct: [id number] Name: TARIK DUNHAM Rep #: [id number] : 1950 Provider: Dr. Jimmie Newell MD Age/Sex: 74/F Location: [place] [address] Status: Signed with Addenda ADDENDUM by Dr. Jimmie Newell MD on 02/01/25 at 1502 Assessment and Plan (No Qualifiers) Assessment and Plan (1) Mucous cyst of digit of left hand: Status: Acute Plan: CPT codes for insurance prior authorization are as follows: 34829, 96152 02/01/25 1502 Date Jimmie Newell MD cc: [...] urine Skin (more content not included)... Normal [facility] Gastroenterology Visit Repor ton 01-23-2025 Gastroenterology Visit Report [facility] Gastroenterology [address] [place] [address] OFFICE VISIT Date of Service: 01/23/25 MR#: [id number] Acct: [id number] Name: TARIK DUNHAM Rep #: [id number] : 1950 Provider: SHAMAR gayle Age/Sex: 74/F Location: [facility] Status: Signed Intake Vital Signs 12/09/24 [...] presents to the office today for FU. 11.14.24 OV establishment with [facility] regarding concerns for difficulty swallowing. She states [...] of br (more content not included)... Normal [facility] Gastroenterology Visit Repor ton 01-03-2025 Gastroenterology Visit Report [facility] Gastroenterology [address] [place] [address] OFFICE VISIT Date of Service: 01/03/25 MR#: [id number] Acct: [id number] Name: TARIK DUNHAM Rep #: [id number] : 1950 Provider: SHAMAR gayle Age/Sex: 74/F Location: [facility] Status: Signed Intake Vital Signs 12/09/24 11:02 [...] presents to the office today for FU. 11.14.24 OV establishment with [facility] regarding concerns for difficulty swallowing. She [...] the second portion of the duodenum. 12.29.24 [facility] [place]: Esophageal dysphagia R13.14; Mild pharyngeal dysphagia [...] We revi (more content not included)... Normal [facility] Modified Barium Swallow Stud n 12-29-2024 Modified Barium Swallow Study [facility] Speech Pathology [address] [place] [address] Modified Barium Swallow Study MR#: [id number] Acct: [id number] Name: TARIK DUNHAM Rep #: [id number] : 1950 74 From: Sherrell Black M.A., [facility] Modified Barium Swallow Patient Information Study Date: [...] the p (more content not included)... Normal [facility] PT D/C Summary (1)on 025 PT D/C Summary (1) [facility] [address] [place] [address] [address] [place] [address] / REHABILITATION SERVICES DISCHARGE SUMMARY MR#: [id number] Acct: [id number] Name: TARIK DUNHAM Rep #: [id number] : 1950 74 From: Anel CHAUDHARI Referring [...] Information Discharge Comments: DC PT back to d/ciro sentence: If there are questions or concerns regarding this patient's physical therapy, please feel free to call me at [phone]. Thank you for the referral of this patient. Sincerely, Anel Blanco, MPT Balance/Gait/Functional tests Balance/Special Test Scores Functional Gait Assessment Score: 19 % Disability: 36.6700 Lower Extremity Functional Score: 36 Improvement % Improvement: 0 12/12/24 1052 CC: Dr. Garo Steele MD Signed Normal [facility] EGD Reporton 12-09-2024 EGD Report [facility] Medical Records Department [address] [place] [address] EGD Report MR#: [id number] Acct: [id number] Name: TARIK DUNHAM Rep #: [id number] : 1950 74 From: Gomez Friend DO PCP: Dr. Garo Steele MD Status:REG [facility] Patient Name: Tarik Dunham Procedure Date: 12/09/2024 [...] pathology results. Procedure Code(s): --- Professional --- 22079, Esophagogastroduodenoscopy, flexible, transoral; with insertion of guide wire followed by passage of dilator(s) through esophagus over guide wire 69590, 59,51, Esophagogastroduodenoscopy, flexible, transoral; with biopsy, single or multiple CPT copyright 2021 [employer]. All rights reserved. The codes documented in this report are preliminary and upon computer language coder review may be revised to meet current compliance requirements. Gomez Reynoso DO 12/09/2024 12:11:06 P (more content not included)... Normal [facility] MR/POSTOP.[facility] 12-09-2024 MR/POSTOP.[facility] Medical Records Department [address] [place] [address] Anesthesia Postop Eval I 12/09/24 1215 MR#: [id number] Acct: [id number] Name: TARIK DUNHAM Rep #: [id number] : 1950 74 From: Fátima Colin CRNA PCP: Dr. Garo Steele MD Status:REG SDC Y Race: C Location: [place] [address] Anesthesia: Postop Eval I Current Vital Signs Temperature: 98.1 F Pulse Rate: 79 Blood Pressure: 100/78 Respiratory Rate: 20 Pulse Ox: 98 Assessment Airway patent: Yes Spontaneous unlabored respirations: Yes nausea: No Vomiting: No Anesthesia Complication: No Fluid Hydration Crystalloid volume administer (ml): 500 Total IV fluid infused: 500 Progress Note Anesthesia document: Postop Eval 1 completed: Yes 12/09/24 1215 Date Fátima Colin JAVA SUPPORT ENGINEER Cosigner Signature: Date CC: Signed Normal [facility] MR/[id number] 12-09-2024 MR/POSTOPAN2 [facility] Medical Records Department [address] [place] [address] Anesthesia Postop Eval II 12/09/24 1510 MR#: [id number] Acct: [id number] Name: TARIK DUNHAM Rep #: [id number] : 1950 74 From: Fátima Colin CRNA PCP: Dr. Garo Steele MD Status:REG SD Y Race: C Location: [place] [address] Anesthesia Postop Eval I Sum Postop Eval Completion status Anesthesia document: Postop Eval 1 completed: Yes Anesthesia Postop Eval I Summary Anesthesia Postop Eval I Summary: Anesthesia Postop Eval I: Assessment Summary Airway patent Yes 12/09/24 12:15 JAVA SUPPORT ENGINEER.CSIR Spontaneous unlabored Yes 12/09/24 12:15 JAVA SUPPORT ENGINEER.CSIR respirations Mental status nausea No 12/09/24 12:15 JAVA SUPPORT ENGINEER.CSIR Vomiting No 12/09/24 12:15 JAVA SUPPORT ENGINEER.CSIR Anesthesia Postop Eval I: Fluid Summary Crystalloid volume administer 500 12/09/24 12:15 JAVA SUPPORT ENGINEER.CSIR (ml) Colloids volume administered ( ml) Blood Product volume administered (ml) Total IV fluid infused 500 12/09/24 12:15 JAVA SUPPORT ENGINEER.CSIR Anesthesia Postop Eval I: Summary Notes Anesthesia Complication No 12/09/24 12:15 JAVA SUPPORT ENGINEER.CSIR Anesthesia Complication Comment: Post-operative progress note Anesthesia: Postop Eval II Evaluation Mental status: Awake Pain Level: 0 nausea: No Vomiting: No 12/09/24 1510 Date Fátima Cristi JAVA SUPPORT ENGINEER Cosigner Signature: Date CC: Signed Normal [facility] Surgery Specimen Level [place] 12-09-2024 Surgery Specimen Level IV ----- Patient Age/Sex Location Account Attending Physician ----- TARIK DUNHAM 74/F EN [id number] Gomez Reynoso DO ----- Specimen: [id number] Received: 12/09/24 Status: SHEREE Arenas Num: [id number] Spec Type: EGD BIOPSY Subm Dr: Gomez Reynoso DO HEADER OPERATION: EGD with biopsy, dilation [...] specimen is totally submitted in one cassette. 12/09/2024 CPT:26442 ----- ADDENDUM Addendum 1 Entered: 01/30/256277 This addendum is added to incorporate an outside pathology consultation report. - A1 The case was examined at [email or web address] and the following diagnosis was rendered. ----- Patient Age/Sex Location Account Attending Physician ----- TARIK DUNHAM 74/F EN [id number] Gomez Reynoso DO ----- ADDENDUM (Continued) Tissue Cypher Risk Class and Risk Score: Risk Class: LOW Risk Score: 5.3 5-year probability of progression: 6% Please see complete above mentioned consultation report in EMR Addendum Signed (signature on file) Dr. Naina Degroot MD 01/31/25 0859 ----- ----- Patient Age/Sex Location Account Attending Physician ----- TARIK DUNHAM 74/F EN [id number] Gomez Reynoso DO ----- Signed (signature on file) Dr. Naina Degroot MD 12/23/24 0957 ----- Normal [facility] Comment on above: Performed By: #### P ROBERT ####[facility] [id number] [place], [place], [address] MR/PATJluis 12-08-2024 MR/PATLUCY [facility] Medical Records Department [address] [place] [address] PAT - Anesthesia 12/08/24 1244 MR#: [id number] Acct: [id number] Name: TARIK DUNHAM Rep #: [id number] : 1950 74 From: Aaron Malone MD PCP: Dr. Garo Steele MD Status:PRE SDC Y Race: C Location: EN Pre-Assessment Diagnosis/Proposed Procedure Planned Operative Procedure(s): EGD Anesthesia History Anesthesia History - file conversion operator: Anesthesia History - file conversion operator Hx Hospitalization No 12/08/24 09:04 Any Problems [...] take am of surgery PONV PONV - file conversion operator: PONV - file conversion operator Female Yes 12/08/24 09:04 HX of Motion [...] 11/14/24 09:18 Respiratory Assessment Respiratory Assessment - file conversion operator: Respiratory Tract Infection Hx - file conversion operator Hx Respiratory Tract Infection No 12/08/24 09:04 STOP Sleep Apnea STOP Sleep Apnea - file conversion operator: STOP Sleep Apnea - file conversion operator Hx Hypertension No 12/08/24 09:04 Hx Sleep [...] 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 - file conversion operator: Tobacco Use History - file conversion operator Tobacco Use Smoking Status Never smoker 12/08/24 09:04 Hx Tobacco Use No 12/08/24 09:04 Years Smoking Packs Smoked per Day Smoking Cessation Date was within the last 15 years Hx Smoking Cessation Date Hx Smoking Cessation Counseling Hematologic Medial History Hematologic Hx - file conversion operator: 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 Normal [facility] Cardiology Visit Reporton Cardiology Visit Report [facility] [address] [place] [address] OFFICE VISIT Date of Service: 11/14/24 MR#: [id number] Acct: [id number] Name: TARIK DUNHAM Rep #: [id number] : 1950 Provider: SHAMAR orellana Age/Sex: 74/F Location: [facility] Status: Signed HPI HPI History of Present [...] says that she is relocating here from [place]. She does spend the conroy in [place]. 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 Normal [facility] Gastroenterology Visit Repor ton 11-14-2024 Gastroenterology Visit Report [facility] Gastroenterology [address] [place] [address] OFFICE VISIT Date of Service: 11/14/24 MR#: [id number] Acct: [id number] Name: TARIK DUNHAM Rep #: [id number] : 1950 Provider: SHAMAR gayle Age/Sex: 74/F Location: [facility] Status: Signed Intake Vital Signs 04/12/24 [...] the past year?: No PFSH Medical History Thyroid nodule Hyperlipidemia Hypothyroidism GERD [...] to the office today for establishment with [facility] regarding concerns for difficulty swallowing. She [...] Aller/Imm Aller (more content not included)... 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 Pt. s/p R breast biopsy on 10/24/15. Dx DCIS. She underwent b/l nipple sparing mastectomy with implant reconstruction. Right sentinel LN biopsy (Neg.) on 01/09/16. No complications. She was not followed by an oncologist after surgery. Pt. has been followed by plastics for implants. Pt. was living in [place]. +family history of breast cancer: Mother in early 40's Maternal aunt I'm have never seen an oncologist. I moved back to [place]. I had my implants changed maybe three [...] pt. - Will have records scanned into [employer]. - Continue follow up with plastics and PCP for routine care. - Follow up in one year. - Pt. aware to call office with any questions/concerns. The patient indicates understanding of these issues and agrees with the plan. Nabil Kim APRN.CHRISTIANO Referring Provider: GARO STEELE [[id number]] Allergies As of Date: 10/28/2024 Noted Allergy Reaction IODINATED CONTRAST MEDIA 12/15/2013 9 - Itching Date Reviewed: 10/28/2024 Reviewed by: Nabil Kim APRN.MANAGER [place] - Fully Assessed Reason for Visit: Consult [173] Primary Visit Diagnosis:Ductal carcinoma in situ (DCIS) of right breast [D05.11] Other Visit Diagnosis:H/O bilateral mastectomy [Z90.13] Order(s):CONSULT TO ONCOLOGY [9023] Order #: [id number]: 1 Follow-up and Disposition History for Encounter Date Provider Department Center 10/28/2024 [id number] Prescriptions as of 10/31/2024 - cephALEXin (KEFLEX) [...] powder, diclofenac sodium powder, gabapentin powder, lidocaine CORRECTION powder in cream base (CPD) Apply 1-2 g to affected area four times a day as needed. Baclofen2%;mcegfjfblg62%;carissa tzbyzj22%;lidocaine6%. Per Altaf Metz MD (orthopedics). - gabapentin [...] [K21.9] Ab (more content not included)... Normal [facility] Inital Evaluation (1) - PTon 10-25-2024 Inital Evaluation (1) - PT [facility] [address] [place] [address]. [address] [place] [address] / REHABILITATION SERVICES INITIAL EVALUATION MR#: [id number] Acct: [id number] Name: TARIK DUNHAM Rep #: [id number] : 1950 74 From: Anel CHAUDHARI Referring [...] patient. For Me (more content not included)... [facility] 10-18-2024 [facility] Telephone (INTMWS) TARIK DUNHAM ([id number]) 1950 F Date Time Provider Department 10/18/24 GARO STEELE INTWS During your visit today, we recorded the following information about you: Juani German, MAVIS 10/18/2024 12:52 PM Signed Patient calls to request results of recent x-ray. Notified still in process. Patient also asking if she could have an order for PT at [facility] for left hip pain. Patient also asking about further blood work d/t having bilateral breast cancer 5 years ago. She reports that when in [place] she followed with oncology and wandering if [...] of left shoulder. She should see her mortgage protection specialist in [facility], Dr. Metz. 2) Referral to PT at [facility] ordered for left hip osteoarthritis. 3) [...] they are in. Faxed Pt orders to [employer] at fax # [phone]. MAVIS Shrestha Victor H, MD 10/21/2024 3:54 AM Signed Schedule with oncology. Izabel Ambriz LPN 10/21/2024 8:34 AM Signed Offer New pt with Nabil. Not on [...] bilateral mastectomy [Z90.13] Order(s):CONSULT TO PHYSICAL THERAPY [9007] Order #: [id number]: 1 FUTURE CONSULT TO ONCOLOGY [9023] Order #: [id number]: 1 FUTURE Prescriptions as of 10/21/2024 - celecoxib (CELEBREX) 200 mg capsule Take 1 capsule by mouth once daily as needed for pain (back pain). - baclofen powder, diclofenac sodium powder, gabapentin powder, lidocaine CORRECTION powder in cream base (CPD) Apply 1-2 g to affected area four times a day as needed. Baclofen2%;%;carissa %;lidocaine6%. Per Altaf Metz MD (orthopedics). - gabapentin [...] Status:Closed by SUSAN STEINER on 10/21/24 Normal [facility] CBC panel Auto (Bld)on 10-14 Erythrocyte distribution width (RBC) [Ratio] 12.5 % Normal 11.5-15.0 [facility] Comment on above: Order Comment: Speci men Type: BLOOD SPECIMENOrdering Facility: [facility] Address: [address] [place] [address] Performed By: #### 5 8410-2 ####[facility] [id number] [place] [address] [place] Hematocrit (Bld) [Volume fraction] 35.9 % Low 36.0-46.0 [facility] Comment on above: Order Comment: Speci men Type: BLOOD SPECIMENOrdering Facility: [facility] Address: [address] [place] [address] Performed By: #### 5 8410-2 ####[facility] [id number] [place] [address] [place] Hemoglobin (Bld) [Mass/Vol] 11.7 g/dL Normal 11.5-15.5 [facility] Comment on above: Order Comment: Speci men Type: BLOOD SPECIMENOrdering Facility: [facility] Address: [address] [place] [address] Performed By: #### 5 8410-2 ####[facility] LABIA [id number] [address], [place] [address] [place] MCH (RBC) [Entitic mass] 29.9 pg Normal 26.0-34.0 [facility] Comment on above: Order Comment: Speci men Type: BLOOD SPECIMENOrdering Facility: [facility] Address: [address] [place] [address] Performed By: #### 5 8410-2 ####[facility] LABIA [id number] [address], [place] [address] [place] MCHC (RBC) [Mass/Vol] 32.6 g/dL Normal 30.5-36.0 [facility] Comment on above: Order Comment: Speci men Type: BLOOD SPECIMENOrdering Facility: [facility] Address: [address] [place] [address] Performed By: #### 5 8410-2 ####[facility] LABIA [id number] [address], [place] [address] [place] MCV (RBC) [Entitic vol] 91.8 fL Normal 80.0-100.0 [facility] Comment on above: Order Comment: Speci men Type: BLOOD SPECIMENOrdering Facility: [facility] Address: [address] [place] [address] Performed By: #### 5 8410-2 ####[facility] LABIA [id number] [place] [address] [place] Nucleated RBC (Bld) [#/Vol] 10*3/uL Normal <0.01 [facility] Comment on above: Order Comment: Speci men Type: BLOOD SPECIMENOrdering Facility: [facility] Address: [address] [place] [address] Performed By: #### 5 8410-2 ####[facility] LABIA [id number] [place] [address] [place] Platelet mean volume (Bld) [Entitic vol] 10.8 fL Normal 9.0-12.7 [facility] Comment on above: Order Comment: Speci men Type: BLOOD SPECIMENOrdering Facility: [facility] Address: [address] [place] [address] Performed By: #### 5 8410-2 ####[facility] LABCLIA [id number] [place] [address] [place] Platelets (Bld) [#/Vol] 287 10*3/uL Normal 150-400 [facility] Comment on above: Order Comment: Speci men Type: BLOOD SPECIMENOrdering Facility: [facility] Address: [address] [place] [address] Performed By: #### 5 8410-2 ####[facility] LABCLIA [id number] [place] [address] [place] RBC (Bld) [#/Vol] 3.91 10*6/uL Normal 3.90-5.20 [facility] Comment on above: Order Comment: Speci men Type: BLOOD SPECIMENOrdering Facility: [facility] Address: [address] [place] [address] Performed By: #### 5 8410-2 ####[facility] LABCLIA [id number] [place] [address] [place] WBC (Bld) [#/Vol] 4.89 10*3/uL Normal 3.70-11.00 [facility] Comment on above: Order Comment: Speci men Type: BLOOD SPECIMENOrdering Facility: [facility] Address: [address] [place] [address] Performed By: #### 5 8410-2 ####[facility] LABCLIA [id number] [address] [address] [place] Comprehensive metabolic 2000 panelon 10-14-2024 Albumin [Mass/Vol] 4.1 g/dL Normal 3.9-4.9 [facility] Comment on above: Order Comment: Speci men Type: BLOOD SPECIMENOrdering Facility: [facility] Address: [address] [place] [address] Performed By: #### 2 4323-8, 37256-9 ####[facility] LABCLIA [id number] [address] [place] [address] [place] ALP [Catalytic activity/Vol] 58 U/L Normal 34-123 [facility] Comment on above: Order Comment: Speci men Type: BLOOD SPECIMENOrdering Facility: [facility] Address: [address] [place], [place] [address] Performed By: #### 2 4323-8, 76466-2 ####[facility] LABCLIA [id number] [address], [facility] [place] ALT [Catalytic activity/Vol] 11 U/L Normal 7-38 [facility] Comment on above: Order Comment: Speci men Type: BLOOD SPECIMENOrdering Facility: [facility] Address: [address] [place], [place] [address] Performed By: #### 2 4323-8, 62367-0 ####[facility] LABCLIA [id number] [place] [address] [place] Anion gap [Moles/Vol] 12 mmol/L Normal 8-15 [facility] Comment on above: Order Comment: Speci men Type: BLOOD SPECIMENOrdering Facility: [facility] Address: [address] [place], [place] [address] Performed By: #### 2 4323-8, 31386-2 ####[facility] LABCLIA [id number] [place] [address] [place] AST [Catalytic activity/Vol] 18 U/L Normal 13-35 [facility] Comment on above: Order Comment: Speci men Type: BLOOD SPECIMENOrdering Facility: [facility] Address: [address] [place], [place] [address] Performed By: #### 2 4323-8, 16465-6 ####[facility] LABCLIA [id number] [address] [address] [place] Bilirubin [Mass/Vol] 0.5 mg/dL Normal 0.2-1.3 [facility] Comment on above: Order Comment: Speci men Type: BLOOD SPECIMENOrdering Facility: [facility] Address: [address] [place] [address] Performed By: #### 2 4323-8, 83001-5 ####[facility] LABCLIA [id number] [place] [address] [place] Calcium [Mass/Vol] 9.6 mg/dL Normal 8.5-10.2 [facility] Comment on above: Order Comment: Speci men Type: BLOOD SPECIMENOrdering Facility: [facility] Address: [address] [place] [address] Performed By: #### 2 4323-8, 83458-2 ####[facility] LABCLIA [id number] [place] [address] [place] Chloride [Moles/Vol] 104 mmol/L Normal 98-107 [facility] Comment on above: Order Comment: Speci men Type: BLOOD SPECIMENOrdering Facility: [facility] Address: [address] [place], [place] [address] Performed By: #### 2 4323-8, 77594-0 ####[facility] LABCLIA [id number] [facility] [address] [address] [place] CO2 [Moles/Vol] 24 mmol/L Normal 22-30 [facility] Comment on above: Order Comment: Speci men Type: BLOOD SPECIMENOrdering Facility: [facility] Address: [address] [place], [place] [address] Performed By: #### 2 4323-8, 77355-3 ####[facility] LABCLIA [id number] [address] [address] [place] [facility] Creatinine [Mass/Vol] 0.70 mg/dL Normal 0.58-0.96 [facility] Comment on above: Order Comment: [place] Type: BLOOD SPECIMENOrdering Facility: [facility] Address: [address] [place] [address] Performed By: #### 2 4323-8, 37498-2 ####[facility] [id number] [address] OF [facility] Creatinine and Glomerular filtration rate.predicted panel (S/P/Bld) 90 mL/min/1.73m??? Normal >=60 [facility] Comment on above: Order Comment: [place] Type: BLOOD SPECIMENOrdering Facility: [facility] Address: [address] [place] [address] Result Comment: Adia mated Glomerular Filtration Rate [...] actual GFR. Performed By: #### 2 4323-8, 48139-5 ####[facility] LABIA [id number] [place] [address] [place] Glucose [Mass/Vol] 89 mg/dL Normal 74-99 [facility] Comment on above: Order Comment: Raheem camp Type: BLOOD SPECIMENOrdering Facility: [facility] Address: [address] [place] [address] Result Comment: The [place] Diabetes Association (ADA) provides guidance for cutoff [...] Standards of Medical Care in Diabetes 2016, [place] Diabetes Association. Diabetes Care. 2016.39(Suppl 1). Performed By: #### 2 4323-8, 49237-0 ####[facility] LABCLIA [id number] [address] [address] [place] Potassium [Moles/Vol] 4.6 mmol/L Normal 3.7-5.1 [facility] Comment on above: Order Comment: Speci men Type: BLOOD SPECIMENOrdering Facility: [facility] Address: [address] [place] [address] Performed By: #### 2 4323-8, 82072-0 ####[facility] LABCLIA [id number] [place] [id number] [place] Protein [Mass/Vol] 6.3 g/dL Normal 6.3-8.0 [facility] Comment on above: Order Comment: Speci men Type: BLOOD SPECIMENOrdering Facility: [facility] Address: [address] [place] [address] Performed By: #### 2 4323-8, ####[facility] LABIA [id number] [address] [address] [place] Sodium [Moles/Vol] 140 mmol/L Normal 136-144 [facility] Comment on above: Order Comment: Speci men Type: BLOOD SPECIMENOrdering Facility: [facility] Address: [address] [place] [id number] Performed By: #### 2 4323-8, 48025-1 ####[facility] LABCLIA [id number] [address] [address] [place] Urea nitrogen [Mass/Vol] 21 mg/dL Normal 7-21 [facility] Comment on above: Order Comment: Speci men Type: BLOOD SPECIMENOrdering Facility: [facility] Address: [address] [place] [address] Performed By: #### 2 4323-8, 27142-1 ####[facility] LABCLIA [id number] [address] OF [place] Lipid 1996 panelon 5 Cholesterol [Mass/Vol] 214 mg/dL High <200 [facility] Comment on above: Order Comment: Speci men Type: BLOOD SPECIMENOrdering Facility: [facility] Address: [address] [place] [address] Result Comment: <200 mg/dL, Desirable 200-239 mg/dL, Borderline high >239 mg/dL, High Performed By: #### 2 4323-8, 45771-4 ####[facility] LABCLIA [id number] [address] [place] Cholesterol in HDL [Mass/Vol] 56 mg/dL Normal >39 [facility] Comment on above: Order Comment: Geoffreyi men Type: BLOOD SPECIMENOrdering Facility: [facility] Address: [address] [place] [address] Result Comment: 40-5 9 mg/dL, Acceptable >59 mg/dL, High: Negative risk factor for coronary heart disease <40 mg/dL, Low: Positive risk factor for coronary heart disease Performed By: #### 2 4323-8, 46318-1 ####[facility] LABCLIA [id number] [address] [place] Cholesterol in LDL [Mass/Vol] 142 mg/dL High <100 [facility] Comment on above: Order Comment: Speci men Type: BLOOD SPECIMENOrdering Facility: [facility] Address: [address] [place] [address] Result Comment: <100 mg/dL, Optimal 100-129 mg/dL, Near optimal/above optimal 130-159 mg/dL, Borderline high 160-189 mg/dL, High >189 mg/dL, Very high Secondary prevention optimal LDL Cholesterol levels are recommended to be <70 mg/dL LDL cholesterol is calculated using the Diaz-NIH equation. Performed By: #### 2 4323-8, 88145-5 ####[facility] LABCLIA [id number] [place] [id number] [place] Cholesterol in LDL/Cholesterol in HDL [Mass ratio] 2.54 {ratio} High <2.54 [facility] Comment on above: Order Comment: Speci men Type: BLOOD SPECIMENOrdering Facility: [facility] Address: [address] [place] [address] Result Comment: Refe willardce: 1. National Cholesterol Education Program ATP III Guideline At-A-Glance Quick Desk Reference: National Heart, Lung, and Blood [place]. National Institutes of Health. 2001: NIH Publication No. 01-3305. 2. An International Atherosclerosis Society position paper: global recommendations for the management of dyslipidemia: executive summary, Atherosclerosis. 2014: 232(2):410-413. Performed By: #### 2 4323-8, 67449-3 ####[facility] LABCLIA [id number] [place] [address] [place] Cholesterol in VLDL [Mass/Vol] 16 mg/dL Normal <30 [facility] Comment on above: Order Comment: Speci men Type: BLOOD SPECIMENOrdering Facility: [facility] Address: [address] [place] [address] Performed By: #### 2 4323-8, 40055-6 ####[facility] LABCLIA [id number] [address] [address] [place] Cholesterol non HDL [Mass/Vol] 158 mg/dL High <130 [facility] Comment on above: Order Comment: Speci men Type: BLOOD SPECIMENOrdering Facility: [facility] Address: [address] [place] [address] Result Comment: <130 mg/dL, Optimal 130-159 mg/dL, Near optimal/above optimal 160-189 mg/dL, Borderline high 190-219 mg/dL, High >219 mg/dL, Very high Secondary prevention optimal non HDL Cholesterol levels are recommended to be <100 mg/dL Performed By: #### 2 4323-8, 81024-4 ####[facility] LABCLIA [id number] [place] [address] [place] Cholesterol.total/Ch olesterol in HDL [Mass ratio] 3.82 {ratio} Normal <5.10 [facility] Comment on above: Order Comment: Speci men Type: BLOOD SPECIMENOrdering Facility: [facility] Address: [address] [place] [address] Performed By: #### 2 4323-8, 95818-7 ####[facility] LABIA [id number] [place] [address] [place] FASTING TIME 12 hrs Normal [facility] Comment on above: Order Comment: Speci men Type: BLOOD SPECIMENOrdering Facility: [facility] Address: [address] [place] [address] Performed By: #### 2 4323-8, 15016-5 ####[facility] LABIA [id number] [place] [address] [place] Triglyceride [Mass/Vol] 91 mg/dL Normal <150 [facility] Comment on above: Order Comment: Speci men Type: BLOOD SPECIMENOrdering Facility: [facility] Address: [address] [place] [address] Result Comment: <150 mg/dL, Normal 150-199 mg/dL, Borderline high 200-499 mg/dL, High >499 mg/dL, Very high Performed By: #### 2 4323-8, 04110-7 ####[facility] LABIA [id number] [place] [id number] [place] CNOVon 10-13-2024 CNOV Office Visit (INTMWS ) TARIK DUNHAM ([id number]) 1950 F Date Time Provider Department 10/13/24 11:20 AM GARO STEELE INTMWS During your visit today, we recorded the following information about you: Pulse Respiration Blood pressure Weight 64/minute 16/minute 102/60 66.8 kg Height 1.651 m Garo Steele MD 10/13/2024 12:54 PM Signed This note was created using Zoobeanriter. Subjective Patient presents with: F/U 6 months [...] also filling a compounded cream from her mortgage protection specialist, Dr. Altaf Metz. She has osteoarthritis of the left hip as well, for which she has been hesitant to have hip replacement. She also had increasing numbness of her right hand digits 1-3. She had chest pains 5 months ago that resolved. Stress test was done at [facility] and was negative. Review of Systems [...] powder, diclofenac sodium powder, gabapentin powder, lidocaine CORRECTION powder in cream base (CPD) Apply 1-2 g to affected area four times a day as needed. Baclofen2%;qyoumfwoui83%;carissa lwpfsu44%;lidocaine6%. Per Altaf Metz MD (orthopedics). No current [...] orthopedic evaluation. She sees Dr. Metz at [facility] in [place]. . 2. Primary osteoarthritis of right knee - ICD9: 715.16, ICD10: M17.11 S/p right total knee. - CELECOXIB 200 MG CAPSULE - COMPLETE BLOOD COUNT 3. Carpal tunnel syndrome on right - ICD9: 354.0, ICD10: G56.01 - Consider orthopedic injection. 4. Neuropathic pain, leg, right - ICD9: 355.8, ICD10: M79.2 - Stable, on care home gabapentin. 5. Hyperlipidemia, unspecified hyperlipidemia type - ICD9: 272.4, ICD10: E78.5 - Control undetermined, due for labs - She expressed hesitance to start a statin medication. - COMPREHENSIVE METABOLIC PANEL - LIPID PANEL, FASTING 6. Unilateral primary osteoarthritis, left hip - ICD9: 715.15, ICD10: M16.12 - Noted outside xray. She was hesitant to have more surgeries. Ivette Diehl (more content not included)... Normal [facility] XR SHLDR >/=3V AP/EDY AP/OTH R LTon [...] glenohumeral joint osteoarthritis. Rotator cuff calcific tendinopathy. Community Health Education Coordinator[facility] Transcribe Date/Time: Oct 19 2024 7:29A Dictated by : HAILY GALVIN MD This examination was interpreted and the report reviewed and electronically signed by: HAILY GALVIN MD on Oct 19 2024 7:30AM EST [id number] Normal [facility] XR SHLDR >/=3V AP/EDY AP/OTH R RTon [...] the 08/31/2015 exam. No acute osseous abnormality. Community Health Education Coordinator: [facility] Transcribe Date/Time: Oct 19 2024 7:31A Dictated by : HAILY GALVIN MD This examination was interpreted and the report reviewed and electronically signed by: HAILY GALVIN MD on Oct 19 2024 7:32AM EST [id number] Normal [facility] 36on 07-25-2024 36 Name of caller: Jewell hernandez Contact phone number: [phone] Relationship to Patient: patient Provider: Isaías Practice: Ortho Chief Complaint/Reason for Call: Patient states she is having a dental cleaning tomorrow and needs an abx called in to her pharmacy on file. Please advise. Best time of day caller can be reached: Any Patient advised that office/PCP has 24-48 business hours to return their call: Yes [facility] Stress Reporton 05-20-2024 Stress Report [facility] [address] [place] [address] MR#: [id number] Acct: [id number] Name: TARIK DUNHAM Rep #: [id number] : 1950 74 From: Clay Jean MD Primary Care: Dr. Garo Steele MD Status: REG CLI Referring Dr: Dangelo Cevallos CUT FILE CLERK CUT FILE CLERK-C Sex: F C Stress Test Report Exercise [...] Clay Jean MD CC: SHAMAR Cevallos; Dr. aGro Steele MD Date Dictated: 05/20/241547 Date Transcribed: 05/20/241547 Community Health Education Coordinator: [place] Signed Normal [facility] XR Hip - left 3 Viewson 03-16 No acute osseous abn ormality identified. Degenerative change and osteopenia. Report Dictated on Electronically Signed By: oJhn Green MD Electronically Signed Date/Time: 04/04/2024 10:35 AM [facility] SPO RADIOLOGY SYSTEM Patient Name: TARIK DUNHAM : [...] abnormality or radiopaque foreign body is identified. [facility] RADIOLOGY SYSTEM John Green MD - 04/04/2024 Patient [...] Electronically Signed Date/Time: 04/04/2024 10:35 AM EDT [facility] XR Hip - left 3 ViewsOrdered By: John Green on 04-04-2024 [facility] Work Phone: Office Visiton 03-30-2024 Follow-up visit [id number] Perla Dunham 1950 F Date Provider Department Center 03/30/2024 17927-XOGETALTAF GUILLORY [facility] ORT ISAAC None No family history on file Level of Service:52740 [place] OFFICE/OUTPATIENT ESTABLISHED MOD MDM 30 MIN Reason for Visit and Comments: Follow-up [939195] - Right TKA 1 yr DOS 03-24-23 Normal [facility] System [facility] Progress Noteon 03-30-2024 Progress Note [facility]THOPE [facility] - [facility] [address] [place] [address] [place] [address] Dept: [phone] Dept 03/30/2024 Chief Complaint Patient presents with [...] Metz M.D. 03/30/2024 at 11:05 AM. Normal [facility] XR Hip - left 3 Viewson 03-15 Radiology Study observation (narrative) [facility] 36on 03-28-2024 36 Name of caller: Jewell hernandez Contact phone number: [phone] Relationship to Patient: patient Provider: Isaías Practice: [...] hours to return their call: Yes Normal [facility] CT CARDIAC SCORING WO IV CON TRASTon 11-05-2023 CT CARDIAC SCORING WO IV CONTRAST Interpreted By: David Bolden, STUDY: CT CARDIAC SCORING WO IV CONTRAST; 11/05/2023 11:31 am INDICATION: Signs/Symptoms:HYPERLIPIDEMIA . COMPARISON: None. ACCESSION NUMBER(S): [id number] ORDERING CLINICIAN: DANGELO CEVALLOS TECHNIQUE: Using prospective [...] coronary heart disease events. According to the [place] [employer] Foundation Clinical Expert Consensus [...] modify other non-lipid coronary risk factors. Reference: Eugene P et al. Circulation. 2007; 115:402-426 Signed by: David Bolden 11/06/2023 2:34 PM Dictation workstation: [id number] [facility] No Panel Informationon 07-22 Normal appearance of the patient's right total knee arthroplasty. Mild medial compartment osteoarthritis of the left knee. Report Dictated on Electronically Signed By: Augustine Bernardo MD Electronically Signed Date/Time: 07/22/2023 5:48 PM [facility] RADIOLOGY SYSTEM Patient Name: TARIK DUNHAM : [...] the right knee. Soft tissues are unremarkable. [facility] Augustine Bernardo MD - 07/22/2023 Patient [...] Electronically Signed Date/Time: 07/22/2023 5:48 PM EST [facility] Radiology Study observation (narrative) [facility] No Panel InformationOrdered By: Augustine Bernardo on 07-22-2023 [facility] XR Knee - right 1 or 2 [...] the right knee. Soft tissues are unremarkable. [facility] RADIOLOGY SYSTEM Augustine Bernardo MD - 07/22/2023 [...] Electronically Signed Date/Time: 07/22/2023 5:48 PM EST [facility] No Panel Informationon 04-29 Right knee arthropla sty. Soft tissue swelling. Mild left knee osteoarthritis. Report Dictated on Electronically Signed By: Kanchan Potts MD Electronically Signed Date/Time: 04/29/2023 4:34 PM EST [facility] RADIOLOGY SYSTEM Patient Name: TARIK DUNHAM : [...] medial tibiofemoral joint space and marginal spurs. [facility] Kanchan Potts MD - 04/29/2023 Patient [...] Electronically Signed Date/Time: 04/29/2023 4:34 PM EST [facility] Radiology Study observation (narrative) [facility] No Panel InformationOrdered By: Kanchan Potts on 04-29-2023 [facility] Work Phone: XR Knee - right 1 [...] medial tibiofemoral joint space and marginal spurs. [facility] Kanchan Potts MD - 04/29/2023 Patient [...] Electronically Signed Date/Time: 04/29/2023 4:34 PM EST [facility] Basic metabolic 1998 panelon 03-25-2023 Anion gap [Moles/Vol] 9 mmol/L 3 - 13 mmol/L [facility] Calcium [Mass/Vol] 9.4 mg/dL 8.4 - 10. 4 mg/dL [facility] Chloride [Moles/Vol] 103 mmol/L 98 - 10 7 mmol/L [facility] CO2 [Moles/Vol] 21 mmol/L Low 22 - 30 mmol/L [facility] Creatinine [Mass/Vol] 0.60 mg/dL 0.52 - 1.04 mg/dL [facility] GFR/1.73 sq M.predicted MDRD (S/P/Bld) [Vol rate/Area] - PINF [facility] Comment on above: Calculation based on the Chronic Kidney Disease Epidemiology Collaboration (CKD-EPI) equation refit without adjustment for race Glucose [Mass/Vol] 138 mg/dL High 70 - 100 mg/dL [facility] Interpretation and review of laboratory results Abnormal [facility] Potassium [Moles/Vol] 4.8 mmol/L 3.5 - 5.1 mmol/L [facility] Sodium [Moles/Vol] 133 mmol/L Low 135 - 145 mmol/L [facility] Urea nitrogen [Mass/Vol] 20 mg/dL High 7 - 17 mg/dL [facility] Hemoglobin (Bld) [Mass/Vol]o n 03-25-2023 Hematocrit (Bld) [Volume fraction] 35.3 % 35.0 - 47.0 % [facility] Interpretation and review of laboratory results Normal [facility] Hemoglobin and hematocrit, b loodon 03-25-2023 Hemoglobin (Bld) [Mass/Vol] 12.0 g/dL 11.7 - 16.0 g/dL [facility] XR Knee - right 1 or 2 Views on 03-24-2023 Baseline exam status post interval right total knee arthroplasty as described. Report Dictated on Electronically Signed By: Marco Hightower MD Electronically Signed Date/Time: 03/24/2023 4:28 PM EDT [facility] Patient Name: TARIK DUNHAM : 1950 [...] soft tissues and joint space, expected postoperatively. [facility] Marco Hightower MD - 03/24/2023 Patient [...] Electronically Signed Date/Time: 03/24/2023 4:28 PM EDT [facility] Radiology Study observation (narrative) [facility] XR Knee - right 1 or 2 Views Ordered By: Marco Hightower on 03-24-2023 [facility] Work Phone: CT Chest WO contraston 02-06 [...] No pleural fluid. Tracheobronchial tree: No abnormality. Mediastinum/Codie: No mediastinal or hilar lymphadenopathy. Axilla and [...] with intact implants. RADIOLOGY Shakila Elam MB [facility] - 02/06/2023 EXAM: CT CHEST WITHOUT [...] No pleural fluid. Tracheobronchial tree: No abnormality. Mediastinum/Codie: No mediastinal or hilar lymphadenopathy. Axilla and [...] disease or acute process within the chest. [facility] Radiology Study observation (narrative) [facility] CT Chest WO contrastOrdered By: Shakila Elam on 02-06-2023 [facility] Work Phone: US Breast - right limitedon [...] Benign Recommendation: Clinical correlation/management. Recommendation Laterality: Right [facility] Radiology Study observation (narrative) [facility] US Breast - right limitedOrd ered By: Jose Ryan on 02-06-2023 [facility] Work Phone: Basophil percentageOrdered B y: Yony Navarro on 02-04-2023 Bilirubin [Mass/Vol] 0.40 mg/dL 0.20-1.00 [facility] Comment on above: For patients on eltr ombopag therapy, use of Dimension Campbell TBIL is not recommended. Cholesterol [Mass/Vol] 184 mg/dL <200 [facility] Comment on above: <200 mg/dL Desirable 200-240 mg/dL Borderline >240 mg/dL High Risk Protein [Mass/Vol] 6.4 g/dL 6.4-8.2 [facility] Triglyceride [Mass/Vol] 106 mg/dL <199 [facility] Comment on above: The drugs N-Acetylcy steine and Metamizole may falsely depress this assay.Serum Triglycerides Reference Interval Normal <150 mg/dL Borderline high 150 - 199 mg/dL High 200 - 499 mg/dL Very High > or = 500 mg/dL Direct bilirubinOrdered By: Yony Navarro on 02-04-2023 Bilirubin.direct [Mass/Vol] 0.08 mg/dL 0.00-0.30 [facility] Laboratory - Chemistry and C hemistry - challengeOrdered By: Yony Navarro on 02-04-2023 ALP [Catalytic activity/Vol] 67 U/L 45-117 [facility] ALT [Catalytic activity/Vol] 25 U/L 13-56 [facility] Globulin (S) [Mass/Vol] 3.2 g/dL 2.2-4.2 [facility] Serum or plasma albumin marvin urement (mass/volume)Ordered By: Yony Navarro on 02-04-2023 Albumin [Mass/Vol] 3.2 g/dL 3.2-5.0 [facility] Serum or plasma cholesterol in HDL measurement (mass/volume)Ordered By: Yony Navarro on 02-04-2023 Cholesterol in HDL [Mass/Vol] 54 mg/dL >40 [facility] Comment on above: The drugs N-Acetylcy steine and Metamizole may falsely depress this assay. Reference Range HDL <40 mg/dL Low HDL Cholesterol HDL >or= 60 mg/dL High HDL Cholesterol Serum or plasma cholesterol in VLDL measurement (mass/volume)Ordered By: Yony Navarro on 02-04-2023 Cholesterol in VLDL [Mass/Vol] 21 mg/dL 5-40 [facility] Serum or plasma low density lipoprotein (LDL) cholesterol measurement (mass/volume)Ordered By: Yony Navarro on 02-04-2023 Cholesterol in LDL [Mass/Vol] 109 mg/dL 0-130 [facility] Thin prep Papanicolaou smear with manual screeningOrdered By: Yony Navarro on 02-04-2023 Thin prep Papanicolaou smear with manual screening 19 U/L 15-37 [facility] CONTINUOUS CARDIAC MONITORIN G STRIPon 02-11-2022 [facility] CONTINUOUS CARDIAC MONITORIN G STRIPOrdered By: Unassigned Pacs on 02-11-2022 [facility] Work Phone: Absolute lymphocyte counton 01-29-2022 Lymphocytes Auto (Unsp spec) [#/Vol] 2.12 10*3/uL 0.83-4.51 [facility] Work Phone: Basophil percentageon 2021 Basophils/100 WBC (Bld) 0.8 % 0-1 [facility] Work Phone: Bilirubin [Mass/Vol] 0.40 mg/dL 0.20-1.00 [facility] Work Phone: Comment on above: For patients on eltr ombopag therapy, use of Dimension Campbell TBIL is not recommended. Chloride [Moles/Vol] 107 mmol/L 98-107 [facility] Work Phone: Cholesterol [Mass/Vol] 248 mg/dL <200 [facility] Work Phone: [phone] Comment on above: <200 mg/dL Desirable 200-240 mg/dL Borderline >240 mg/dL High Risk Eosinophils/100 WBC (Bld) 2.3 % 0-5 [facility] Work Phone: Glucose [Mass/Vol] 99 mg/dL 74-106 [facility] Work Phone: Neutrophils (Bld) [#/Vol] 2.5 10*3/uL 2.0-7.7 [facility] Work Phone: Neutrophils/100 WBC (Bld) 47.5 % 47-70 [facility] Work Phone: Potassium [Moles/Vol] 4.5 mmol/L 3.5-5.1 [facility] Work Phone: Protein [Mass/Vol] 6.5 g/dL 6.4-8.2 [facility] Work Phone: Sodium [Moles/Vol] 142 mmol/L 136-145 [facility] Work Phone: Triglyceride [Mass/Vol] 103 mg/dL <199 [facility] Work Phone: Comment on above: The drugs N-Acetylcy steine and Metamizole may falsely depress this assay.Serum Triglycerides Reference Interval Normal <150 mg/dL Borderline high 150 - 199 mg/dL High 200 - 499 mg/dL Very High > or = 500 mg/dL WBC (Bld) [#/Vol] 5.2 10*3/uL 4.4-11.0 [facility] Work Phone: Blood erythrocytes count (nu mber/volume)on 01-29-2022 RBC (Bld) [#/Vol] 4.07 10*6/uL 4.2-5.4 [facility] Work Phone: Blood hemoglobin measurement (mass/volume)on 01-29-2022 Hemoglobin (Bld) [Mass/Vol] 12.3 g/dL 12.0-15.0 [facility] Work Phone: Blood lymphocytes/100 leukoc yteson 01-29-2022 Lymphocytes/100 WBC (Bld) 41.2 % 19-41 [facility] Work Phone: Blood monocytes/100 leukocyt eson 01-29-2022 Monocytes/100 WBC (Bld) 8.0 % 0-10 [facility] Work Phone: Blood platelet mean volumeon 01-29-2022 Platelet mean volume (Bld) [Entitic vol] 10.0 fL 6.2-12.0 [facility] Work Phone: Determination of erythrocyte mean corpuscular volume (MCV)on 01-29-2022 MCV (RBC) [Entitic vol] 91.9 fL 81-99 [facility] Work Phone: Hematocrit Auto (Bld) [Volum e fraction]on 01-29-2022 Hematocrit (Bld) [Volume fraction] 37.4 % 37-47 [facility] Work Phone: Laboratory - Chemistry and C hemistry - challengeon 01-29-2022 ALP [Catalytic activity/Vol] 56 U/L 45-117 [facility] Work Phone: ALT [Catalytic activity/Vol] 25 U/L 13-56 [facility] Work Phone: CO2 [Moles/Vol] 29.0 mmol/L 21.0-32.0 [facility] Work Phone: Free T4 [Mass/Vol] 0.92 ng/dL 0.76-1.46 [facility] Work Phone: Globulin (S) [Mass/Vol] 3.0 g/dL 2.2-4.2 [facility] Work Phone: Urea nitrogen/Creatinine [Mass ratio] 17.9 mg/mg 10-20 [facility] Work Phone: Laboratory - Hematology and Cell countson 01-29-2022 Erythrocyte distribution width (RBC) [Entitic vol] 43.0 fL 35.1-43.9 [facility] Work Phone: Erythrocyte distribution width (RBC) [Ratio] 12.9 % 11.6-14.6 [facility] Work Phone: Immature granulocytes/100 WBC (Bld) 0.200 % 0.0-0.9 [facility] Work Phone: Comment on above: IG% - Immature Granu locytes (promyelocytes, myelocytes and metamyelocytes) > 1% indicates that a LEFT SHIFT is Present. MCH (RBC) [Entitic mass] 30.2 pg 27.0-32.0 [facility] Work Phone: Nucleated RBC/100 WBC (Bld) [Ratio] 0 % 0-5 [facility] Work Phone: MCHC Auto (RBC) [Mass/Vol]on 01-29-2022 MCHC (RBC) [Mass/Vol] 32.9 g/dL 32-36 [facility] Work Phone: [phone] No Panel Informationon 01-29 Estimated GFR (MDRD) Amer 86 mL/min >60 [facility] Work Phone: Comment on above: GFR Calc Estimated GFR (MDRD) Non-Af Amer 71 mL/min >60 [facility] Work Phone: Comment on above: Non- GFR Calc Free Triiodothyronine (T3) pg/dL 2.7 pg/mL 2.18-3.98 [facility] Work Phone: Thyroid Stimulating Hormone (TSH) 3.40 uIU/mL 0.358-3.74 [facility] Work Phone: Platelets bldon 01-29-2022 Platelets (Bld) [#/Vol] 288 10*3/uL 150-450 [facility] Work Phone: Serum or plasma albumin marvin urement (mass/volume)on 01-29-2022 Albumin [Mass/Vol] 3.5 g/dL 3.2-5.0 [facility] Work Phone: Serum or plasma albumin/glob ulin mass ratioon 01-29-2022 Albumin/Globulin [Mass ratio] 1.2 {ratio} 0.9-2.4 [facility] Work Phone: Serum or plasma calcium marvin urement (mass/volume)on 01-29-2022 Calcium [Mass/Vol] 9.1 mg/dL 8.5-10.1 [facility] Work Phone: Serum or plasma cholesterol in HDL measurement (mass/volume)on 01-29-2022 Cholesterol in HDL [Mass/Vol] 72 mg/dL >40 [facility] Work Phone: Comment on above: The drugs N-Acetylcy steine and Metamizole may falsely depress this assay. Reference Range HDL <40 mg/dL Low HDL Cholesterol HDL >or= 60 mg/dL High HDL Cholesterol Serum or plasma cholesterol in VLDL measurement (mass/volume)on 01-29-2022 Cholesterol in VLDL [Mass/Vol] 21 mg/dL 5-40 [facility] Work Phone: Serum or plasma creatinine m easurement (mass/volume)on 01-29-2022 Creatinine [Mass/Vol] 0.84 mg/dL 0.55-1.02 [facility] Work Phone: Comment on above: The validity of the calculated GFR & GFRAA in patients over 70 years has not been determined. Clinical correlation is essential. Serum or plasma low density lipoprotein (LDL) cholesterol measurement (mass/volume)on 01-29-2022 Cholesterol in LDL [Mass/Vol] 155 mg/dL 0-130 [facility] Work Phone: Serum or plasma urea nitroge n measurement (mass/volume)on 01-29-2022 Urea nitrogen [Mass/Vol] 15 mg/dL 7-18 [facility] Work Phone: Thin prep Papanicolaou smear with manual screeningon 01-29-2022 Thin prep Papanicolaou smear with manual screening 20 U/L 15-37 [facility] Work Phone: Thin prep Papanicolaou smear with manual screening 6 5-15 [facility] Work Phone: Laboratory - Chemistry and C hemistry - challengeon 12-03-2021 T4 [Mass/Vol] 9.1 ug/dL 4.8-13.9 [facility] Work Phone: No Panel Informationon 12-03 Thyroid Stimulating Hormone (TSH) 3.44 uIU/mL 0.358-3.74 [facility] Work Phone: Total Triiodothyronine 1.19 ng/mL 0.6-1.81 [facility] Work Phone: Basophil percentageon 2021 Chloride [Moles/Vol] 104 mmol/L 98-107 [facility] Work Phone: Glucose [Mass/Vol] 89 mg/dL 74-106 [facility] Work Phone: Potassium [Moles/Vol] 4.8 mmol/L 3.5-5.1 [facility] Work Phone: Sodium [Moles/Vol] 137 mmol/L 136-145 [facility] Work Phone: WBC (Bld) [#/Vol] 6.5 10*3/uL 4.4-11.0 [facility] Work Phone: Blood erythrocytes count (nu mber/volume)on 11-21-2021 RBC (Bld) [#/Vol] 3.92 10*6/uL 4.2-5.4 [facility] Work Phone: Blood hemoglobin measurement (mass/volume)on 11-21-2021 Hemoglobin (Bld) [Mass/Vol] 12.1 g/dL 12.0-15.0 [facility] Work Phone: Blood platelet mean volumeon 11-21-2021 Platelet mean volume (Bld) [Entitic vol] 10.1 fL 6.2-12.0 [facility] Work Phone: Determination of erythrocyte mean corpuscular volume (MCV)on 11-21-2021 MCV (RBC) [Entitic vol] 91.8 fL 81-99 [facility] Work Phone: Hematocrit Auto (Bld) [Volum e fraction]on 11-21-2021 Hematocrit (Bld) [Volume fraction] 36.0 % 37-47 [facility] Work Phone: Laboratory - Chemistry and C hemistry - challengeon 11-21-2021 CO2 [Moles/Vol] 28.0 mmol/L 21.0-32.0 [facility] Work Phone: Urea nitrogen/Creatinine [Mass ratio] 20.1 mg/mg 10-20 [facility] Work Phone: Laboratory - Hematology and Cell countson 11-21-2021 Erythrocyte distribution width (RBC) [Entitic vol] 41.9 fL 35.1-43.9 [facility] Work Phone: Erythrocyte distribution width (RBC) [Ratio] 12.5 % 11.6-14.6 [facility] Work Phone: MCH (RBC) [Entitic mass] 30.9 pg 27.0-32.0 [facility] Work Phone: MCHC Auto (RBC) [Mass/Vol]on 11-21-2021 MCHC (RBC) [Mass/Vol] 33.6 g/dL 32-36 [facility] Work Phone: No Panel Informationon 11-21 Estimated GFR (MDRD) Amer 98 mL/min >60 [facility] Work Phone: Comment on above: GFR Calc Estimated GFR (MDRD) Non-Af Amer 81 mL/min >60 [facility] Work Phone: Comment on above: Non- GFR Calc Platelets bldon 11-21-2021 Platelets (Bld) [#/Vol] 308 10*3/uL 150-450 [facility] Work Phone: Serum or plasma calcium marvin urement (mass/volume)on 11-21-2021 Calcium [Mass/Vol] 9.6 mg/dL 8.5-10.1 [facility] Work Phone: Serum or plasma creatinine m easurement (mass/volume)on 11-21-2021 Creatinine [Mass/Vol] 0.75 mg/dL 0.55-1.02 [facility] Work Phone: Comment on above: The validity of the calculated GFR & GFRAA in patients over 70 years has not been determined. Clinical correlation is essential. Serum or plasma urea nitroge n measurement (mass/volume)on 11-21-2021 Urea nitrogen [Mass/Vol] 15 mg/dL 7-18 [facility] Work Phone: Thin prep Papanicolaou smear with manual screeningon 11-21-2021 Thin prep Papanicolaou smear with manual screening 5 5-15 [facility] Work Phone: No Panel Informationon 11-12 Thyroglobulin Antibody < 1.0 IU/mL 0.0-0.9 [facility] Work Phone: Comment on above: Thyroglobulin Antibo dy measured by Ky[employer] TechnologiesMethodologyPerformed at: - [facility] [address] [id number] Director: Dann Baez PhD, Phone: [phone] Serum or plasma thyroperoxid ase antibody assay (units/volume)on 11-12-2021 TPO Ab Qn [IU]/mL 0-34 [facility] Work Phone: No Panel Informationon 08-14 Thyroid Stimulating Hormone (TSH) 2.02 uIU/mL 0.358-3.74 [facility] Work Phone: Absolute lymphocyte counton 06-18-2021 Lymphocytes Auto (Unsp spec) [#/Vol] 2.33 10*3/uL 0.83-4.51 [facility] Work Phone: Basophil percentageon 2021 Basophils/100 WBC (Bld) 0.8 % 0-1 [facility] Work Phone: Bilirubin [Mass/Vol] 0.30 mg/dL 0.20-1.00 [facility] Work Phone: Comment on above: For patients on eltr ombopag therapy, use of Dimension Campbell TBIL is not recommended. Chloride [Moles/Vol] 102 mmol/L 98-107 [facility] Work Phone: Cholesterol [Mass/Vol] 266 mg/dL <200 [facility] Work Phone: Comment on above: <200 mg/dL Desirable 200-240 mg/dL Borderline >240 mg/dL High Risk Eosinophils/100 WBC (Bld) 3.0 % 0-5 [facility] Work Phone: Glucose [Mass/Vol] 99 mg/dL 74-106 [facility] Work Phone: Comment on above: Please note revised GLUCOSE reference range effective 2017. Neutrophils (Bld) [#/Vol] 3.6 10*3/uL 2.0-7.7 [facility] Work Phone: Neutrophils/100 WBC (Bld) 53.9 % 47-70 [facility] Work Phone: Potassium [Moles/Vol] 4.0 mmol/L 3.5-5.1 [facility] Work Phone: Protein [Mass/Vol] 7.0 g/dL 6.4-8.2 [facility] Work Phone: Sodium [Moles/Vol] 139 mmol/L 136-145 [facility] Work Phone: Triglyceride [Mass/Vol] 154 mg/dL [facility] Work Phone: Comment on above: The drugs N-Acetylcy steine and Metamizole may falsely depress this assay.Serum Triglycerides Reference Interval Normal <150 mg/dL Borderline high 150 - 199 mg/dL High 200 - 499 mg/dL Very High > or = 500 mg/dL WBC (Bld) [#/Vol] 6.6 10*3/uL 4.4-11.0 [facility] Work Phone: Blood erythrocytes count (nu mber/volume)on 06-18-2021 RBC (Bld) [#/Vol] 4.03 10*6/uL 4.2-5.4 [facility]: Blood hemoglobin measurement (mass/volume)on 06-18-2021 Hemoglobin (Bld) [Mass/Vol] 12.0 g/dL 12.0-15.0 [facility] Work Phone: Blood lymphocytes/100 leukoc yteson 06-18-2021 Lymphocytes/100 WBC (Bld) 35.2 % 19-41 [facility] Work Phone: Blood monocytes/100 leukocyt eson 06-18-2021 Monocytes/100 WBC (Bld) 6.8 % 0-10 [facility] Work Phone: Blood platelet mean volumeon 06-18-2021 Platelet mean volume (Bld) [Entitic vol] 9.9 fL 6.2-12.0 [facility] Work Phone: Determination of erythrocyte mean corpuscular volume (MCV)on 06-18-2021 MCV (RBC) [Entitic vol] 90.1 fL 81-99 [facility] Work Phone: Hematocrit Auto (Bld) [Volum e fraction]on 06-18-2021 Hematocrit (Bld) [Volume fraction] 36.3 % 37-47 [facility] Work Phone: Laboratory - Chemistry and C hemistry - challengeon 06-18-2021 ALP [Catalytic activity/Vol] 70 U/L 45-117 [facility] Work Phone: ALT [Catalytic activity/Vol] 28 U/L 13-56 [facility] Work Phone: CO2 [Moles/Vol] 30.0 mmol/L 21.0-32.0 [facility] Work Phone: Globulin (S) [Mass/Vol] 3.3 g/dL 2.2-4.2 [facility] Work Phone: Urea nitrogen/Creatinine [Mass ratio] 30.7 mg/mg 10-20 [facility] Work Phone: Laboratory - Hematology and Cell countson 06-18-2021 Erythrocyte distribution width (RBC) [Entitic vol] 42.6 fL 35.1-43.9 [facility] Work Phone: Erythrocyte distribution width (RBC) [Ratio] 12.9 % 11.6-14.6 [facility] Work Phone: Immature granulocytes/100 WBC (Bld) 0.300 % 0.0-0.9 [facility] Work Phone: Comment on above: IG% - Immature Granu locytes (promyelocytes, myelocytes and metamyelocytes) > 1% indicates that a LEFT SHIFT is Present. MCH (RBC) [Entitic mass] 29.8 pg 27.0-32.0 [facility] Work Phone: Nucleated RBC/100 WBC (Bld) [Ratio] 0 % 0-5 [facility] Work Phone: MCHC Auto (RBC) [Mass/Vol]on 06-18-2021 MCHC (RBC) [Mass/Vol] 33.1 g/dL 32-36 [facility] Work Phone: No Panel Informationon 06-18 Estimated GFR (MDRD) Amer 98 mL/min >60 [facility] Work Phone: Comment on above: GFR Calc Estimated GFR (MDRD) Non-Af Amer 81 mL/min >60 [facility] Work Phone: Comment on above: Non- GFR Calc Thyroid Stimulating Hormone (TSH) 4.20 uIU/mL 0.358-3.74 [facility] Work Phone: Vitamin D 25-Hydroxy 42.5 ng/mL [facility] Work Phone: Comment on above: Vitamin D 25(OH) Sta tus Range Deficiency <20 ng/mL (50nmol/L) Insufficiency 20 - 30 ng/mL (50 - 75 nmol/L) Sufficiency 30 - 100 ng/mL (75 - 250 nmol/L) Toxicity >100 ng/mL (>250 nmol/L) Platelets bldon 06-18-2021 Platelets (Bld) [#/Vol] 298 10*3/uL 150-450 [facility] Work Phone: Serum or plasma albumin marvin urement (mass/volume)on 06-18-2021 Albumin [Mass/Vol] 3.7 g/dL 3.2-5.0 [facility] Work Phone: Serum or plasma albumin/glob ulin mass ratioon 06-18-2021 Albumin/Globulin [Mass ratio] 1.1 {ratio} 0.9-2.4 [facility] Work Phone: Serum or plasma calcium marvin urement (mass/volume)on 06-18-2021 Calcium [Mass/Vol] 9.2 mg/dL 8.5-10.1 [facility] Work Phone: Serum or plasma cholesterol in HDL measurement (mass/volume)on 06-18-2021 Cholesterol in HDL [Mass/Vol] 68 mg/dL [facility] Work Phone: Comment on above: The drugs N-Acetylcy steine and Metamizole may falsely depress this assay. Reference Range HDL <40 mg/dL Low HDL Cholesterol HDL >or= 60 mg/dL High HDL Cholesterol Serum or plasma cholesterol in VLDL measurement (mass/volume)on 06-18-2021 Cholesterol in VLDL [Mass/Vol] 31 mg/dL 5-40 [facility] Work Phone: Serum or plasma creatinine m easurement (mass/volume)on 06-18-2021 Creatinine [Mass/Vol] 0.75 mg/dL 0.55-1.02 [facility] Work Phone: Comment on above: The validity of the calculated GFR & GFRAA in patients over 70 years has not been determined. Clinical correlation is essential. Serum or plasma low density lipoprotein (LDL) cholesterol measurement (mass/volume)on 06-18-2021 Cholesterol in LDL [Mass/Vol] 167 mg/dL 0-130 [facility] Work Phone: Serum or plasma urea nitroge n measurement (mass/volume)on 06-18-2021 Urea nitrogen [Mass/Vol] 23 mg/dL 7-18 [facility] Work Phone: Thin prep Papanicolaou smear with manual screeningon 06-18-2021 Thin prep Papanicolaou smear with manual screening 20 U/L 15-37 [facility] Work Phone: Thin prep Papanicolaou smear with manual screening 7 5-15 [facility] Work Phone: OBSOLETEon 01-08-2021 OBSOLETE Refill (FAMPFG) TARIK DUNHAM ([id number]) 1950 F Date Time Provider Department 01/08/21 [...] Encounter Status:Closed by EDGARDO PATEL on 01/09/21 [facility] OBSOLETEon 12-22-2020 OBSOLETE Refill (FAMPFG) TARIK DUNHAM ([id number]) 1950 F Date Time Provider Department 12/22/20 [facility] During your visit today, we recorded the following information about you: Lela Damon RN 12/24/2020 1:50 PM Signed Last seen by 12/09/19 Next appointment with none Current Labs 11/30/19 Date last rx given 09/28/20 Original ordering physician isha Day please advised he is due for OV and labs Isabel Mando 12/25/2020 3:30 PM Signed Patient was left [...] Encounter Status:Closed by AZUCENA VIEIRA on 12/25/20 [facility] 11-22-2020 CNPN Telephone (INTMFW) TARIK DUNHAM ([id number]) 1950 F Date Time Provider Department 11/22/20 [...] Assessed Reason for Visit: Medicare Wellness Exam [4060] Prescriptions as of 11/22/2020 Sig: ATORVASTATIN 10 [...] Encounter Status:Closed by MIGUELINA MENARD on 11/22/20 [facility] 09-27-2020 [facility] Telephone (FAMFG) TARIK DUNHAM ([id number]) 1950 F Date Time Provider Department 09/27/20 AZUCENA VIEIRA [facility] During your visit today, we recorded the [...] Encounter Status:Closed by CHIDI MURRAY on 11/09/20 [facility] OBSOLETEon 04-19-2020 OBSOLETE Refill (FAMPFG) CHARLATARIK ([id number]) 1950 F Date Time Provider Department 04/19/20 KAVON ARAUZ [facility] During your visit today, we recorded the [...] by mouth once daily. Encounter Status:Closed by ISHA (AZUCENA CASPER on 04/20/20 [facility] Vital Signs Date Time Vital Sign Value Performing Clinician Facility 03-24-2025 10:27-0400 Body height 165.[address] Garo Steele MD Work Phone: 0(000)791-509340 [place] [address] 03-24-2025 10:27-0400 Body temperature 99 [degF] Dr. Garo Steele MD Work Phone: 1(122)470-713940 [place] [address] 03-24-2025 10:27-0400 Diastolic blood pressure 76 mm[Hg] Dr. Garo Steele MD Work Phone: 3(676)314-442240 [place] [address] 03-24-2025 10:27-0400 Heart rate 63 /min Dr. Garo Steele MD Work Phone: 2(091)861-391940 [place] [address] 03-24-2025 10:27-0400 Respiratory rate 18 /min Dr. Garo Steele MD Work Phone: 9(482)889-184940 [place] [address] 03-24-2025 10:27-0400 SaO2% (BldA) [Mass fraction] 96 % Dr. Garo Steele MD Work Phone: 7(946)558-328740 [place] [address] 03-24-2025 10:27-0400 Systolic blood pressure 119 mm[Hg] Dr. Garo Steele MD Work Phone: 4(642)310-543840 [place] [address] 03-17-2025 10:23-0400 Body height 165.[address] Garo Steele MD Work Phone: 9(673)945-595240 [place] [address] 03-17-2025 10:23-0400 Body temperature 98.1 [degF] Dr. Garo Steele MD Work Phone: [facility] 03-17-2025 10:23-0400 Diastolic blood pressure 63 mm[Hg] Dr. Garo Steele MD Work Phone: [facility] 03-17-2025 10:23-0400 Heart rate 59 /min Dr. Garo Steele MD Work Phone: 7(775)710-595255 [place] [address] 03-17-2025 10:23-0400 Respiratory rate 18 /min Dr. Garo Steele MD Work Phone: 1(660)647-408955 [place] [address] 03-17-2025 10:23-0400 SaO2% (BldA) [Mass fraction] 96 % Dr. Garo Steele MD Work Phone: 3(721)103-162555 [place] [address] 03-17-2025 10:23-0400 Systolic blood pressure 128 mm[Hg] Dr. Garo Steele MD Work Phone: [facility] 03-15-2025 09:30-0400 Body height 167.6 cm Altaf Metz MD Work Phone: [facility] 03-15-2025 09:30-0400 Body mass index (BMI) [Ratio] 22.6 kg/m2 Altaf Metz MD Work Phone: [facility] 03-15-2025 09:30-0400 Body weight 63.5 kg Altaf Metz MD Work Phone: [facility] 03-14-2025 08:40-0400 Body temperature 97.3 [degF] Dr. Garo Steele MD Work Phone: [facility] 03-14-2025 08:40-0400 Diastolic blood pressure 58 mm[Hg] Dr. Garo Steele MD Work Phone: [facility] 03-14-2025 08:40-0400 Heart rate 51 /min Dr. Garo Steele MD Work Phone: [facility] 03-14-2025 08:40-0400 SaO2% (BldA) [Mass fraction] 96 % Dr. Garo Steele MD Work Phone: 1(655)046-864840 [place] [address] 03-14-2025 08:40-0400 Systolic blood pressure 148 mm[Hg] Dr. Garo Steele MD Work Phone: 1(513)906-342640 [place] [address] 03-14-2025 08:35-0400 Respiratory rate 16 /min Dr. Garo Steele MD Work Phone: 9(657)630-016840 [place] [address] 03-14-2025 06:25-0400 Body height 165.[address] Garo Steele MD Work Phone: 5(241)618-127140 [place] [address] 03-14-2025 06:25-0400 Body mass index (BMI) [Ratio] 24.7 kg/m2 Dr. Garo Steele MD Work Phone: 0(994)362-274940 [place] [address] 03-14-2025 06:25-0400 Body weight 67.[address] Garo Steele MD Work Phone: 6(456)585-903440 [place] [address] 12-09-2024 12:25-0400 Body temperature 72 [degF] Dr. Garo Steele MD Work Phone: 3(662)372-938540 [place] [address] 12-09-2024 12:25-0400 Diastolic blood pressure 71 mm[Hg] Dr. Garo Steele MD Work Phone: 7(056)389-953740 [place] [address] 12-09-2024 12:25-0400 Heart rate 18 /min Dr. Garo Steele MD Work Phone: 2(871)241-676040 [place] [address] 12-09-2024 12:25-0400 Respiratory rate 18 /min Dr. Garo Steele MD Work Phone: 4(162)321-522640 [place] [address] 12-09-2024 12:25-0400 SaO2% (BldA) [Mass fraction] 99 % Dr. Garo Steele MD Work Phone: 8(533)493-443740 [place] [address] 12-09-2024 12:25-0400 Systolic blood pressure 132 mm[Hg] Dr. Garo Steele MD Work Phone: 9(860)038-540140 [place] [address] 12-09-2024 11:02-0400 Body height 165.[address] Garo Steele MD Work Phone: 3(249)160-445040 [place] [address] 12-09-2024 11:02-0400 Body mass index (BMI) [Ratio] 24.5 kg/m2 Dr. Garo Steele MD Work Phone: 1(827)757-892240 [place] [address] 12-09-2024 11:02-0400 Body weight [address] Garo Steele MD Work Phone: 2(726)612-941240 [place] [address] 11-14-2024 09:18-0400 Body height 165.[address] Garo Steele MD Work Phone: 8(136)059-258040 [place] [address] 11-14-2024 09:18-0400 Body mass index (BMI) [Ratio] 24.6 kg/m2 Dr. Garo Steele MD Work Phone: 0(199)526-119540 [place] [address] 11-14-2024 09:18-0400 Body weight 67.[address] Garo Steele MD Work Phone: 1(010)779-854140 [place] [address] 11-14-2024 09:18-0400 Diastolic blood pressure 71 mm[Hg] Dr. Garo Steele MD Work Phone: 6(238)254-382640 [place] [address] 11-14-2024 09:18-0400 Heart rate 62 /min Dr. Garo Steele MD Work Phone: 5(881)944-192240 [place] [address] 11-14-2024 09:18-0400 SaO2% (BldA) [Mass fraction] 96 % Dr. Garo Steele MD Work Phone: 3(275)655-778840 [place] [address] 11-14-2024 09:18-0400 Systolic blood pressure 119 mm[Hg] Dr. Garo Steele MD Work Phone: 2(248)542-461540 [place] [address] 11-14-2024 06:35-0400 Body mass index (BMI) [Ratio] 24.6 kg/m2 Dr. Garo Steele MD Work Phone: 2(307)875-823740 [place] [address] 11-14-2024 06:35-0400 Body weight 67.[address] Garo Steele MD Work Phone: [facility] 11-14-2024 06:35-0400 Diastolic blood pressure 66 mm[Hg] Dr. Garo Steele MD Work Phone: [facility] 11-14-2024 06:35-0400 Heart rate 68 /min Dr. Garo Steele MD Work Phone: [facility] 11-14-2024 06:35-0400 Respiratory rate 18 /min Dr. Garo Steele MD Work Phone: [facility] 11-14-2024 06:35-0400 SaO2% (BldA) [Mass fraction] 98 % Dr. Garo Steele MD Work Phone: [facility] 11-14-2024 06:35-0400 Systolic blood pressure 102 mm[Hg] Dr. Garo Steele MD Work Phone: [facility] 10-28-2024 08:04-0400 Body height 167.6 cm Nabil Kim [employer] Work Phone: [facility] 10-28-2024 08:04-0400 Body mass index (BMI) [Ratio] 23.63 kg/m2 Nabil Kim [employer] Work Phone: [facility] 10-28-2024 08:04-0400 Body temperature 98.1 [degF] Nabil Kim [employer] Work Phone: [facility] 10-28-2024 08:04-0400 Body weight 66.4 kg Nabil Kim [employer] Work Phone: [facility] 10-28-2024 08:04-0400 Diastolic blood pressure 64 mm[Hg] Nabil Kim [employer] Work Phone: [facility] 10-28-2024 08:04-0400 Heart rate 63 /min Nabil Kim [employer] Work Phone: [facility] 10-28-2024 08:04-0400 SaO2% (BldA) [Mass fraction] 95 % Nabil Salomonenter [employer] Work Phone: [facility] 10-28-2024 08:04-0400 Systolic blood pressure 113 mm[Hg] Nabil Salomonenter [employer] Work Phone: [facility] 10-13-2024 11:10-0400 Body height 165.1 cm Garo Steele MD Work Phone: [facility] 10-13-2024 11:10-0400 Body mass index (BMI) [Ratio] 24.51 kg/m2 Garo Steele MD Work Phone: [facility] 10-13-2024 11:10-0400 Body weight 66.8 kg Garo Steele MD Work Phone: [facility] 10-13-2024 11:10-0400 Diastolic blood pressure 60 mm[Hg] Garo Steele MD Work Phone: [facility] 10-13-2024 11:10-0400 Heart rate 64 /min Garo Steele MD Work Phone: [facility] 10-13-2024 11:10-0400 Respiratory rate 16 /min Garo Steele MD Work Phone: [facility] 10-13-2024 11:10-0400 Systolic blood pressure 102 mm[Hg] Garo Steele MD Work Phone: [facility] 04-15-2024 15:30-0400 Body height 167.6 cm Garo Steele MD Work Phone: [facility] 04-15-2024 15:30-0400 Body mass index (BMI) [Ratio] 24.13 kg/m2 Garo Steele MD Work Phone: [facility] 04-15-2024 15:30-0400 Body temperature 97.3 [degF] Garo Steele MD Work Phone: [facility] 04-15-2024 15:30-0400 Body weight 67.8 kg Garo Steele MD Work Phone: [facility] 04-15-2024 15:30-0400 Diastolic blood pressure 64 mm[Hg] Garo Steele MD Work Phone: [facility] 04-15-2024 15:30-0400 Heart rate 63 /min Garo Steele MD Work Phone: [facility] 04-15-2024 15:30-0400 Respiratory rate 12 /min Garo Steele MD Work Phone: [facility] 04-15-2024 15:30-0400 SaO2% (BldA) [Mass fraction] 96 % Garo Steele MD Work Phone: [facility] 04-15-2024 15:30-0400 Systolic blood pressure 114 mm[Hg] Garo Steele MD Work Phone: [facility] 04-12-2024 11:28-0400 Body mass index (BMI) [Ratio] 24.2 kg/m2 Lucille Ashley [employer]GER [employer] Work Phone: [facility] 04-12-2024 11:28-0400 Body temperature 97.7 [degF] Lucille Ashley [employer]GER [employer] Work Phone: [facility] 04-12-2024 11:28-0400 Body weight 68 kg Lucille Ashley [employer]ESPERSON [employer]MA[employer]GER [employer] Work Phone: [facility] 04-12-2024 11:28-0400 Diastolic blood pressure 83 mm[Hg] Lucille Ashley [employer]ESPERSON [employer]MA[employer]GER [employer] Work Phone: [facility] 04-12-2024 11:28-0400 Heart rate 61 /min Lucille Ashley [employer]ERSON [employer]MA[employer]GER [employer] Work Phone: [facility] 04-12-2024 11:28-0400 Respiratory rate 18 /min Lucille Ashley [employer]ERSON [employer]MA[employer]GER [employer] Work Phone: [facility] 04-12-2024 11:28-0400 SaO2% (BldA) [Mass fraction] 99 % Lucille Carlosgs [employer]ESPERSON [employer]MA[employer]GER [employer] Work Phone: [facility] 04-12-2024 11:28-0400 Systolic blood pressure 133 mm[Hg] Lucille Ashley [employer]ERSON [employer]GER [employer] Work Phone: [facility] 03-30-2024 10:39-0400 Body height 167.6 cm Altaf Metz MD Work Phone: [facility] 03-30-2024 10:39-0400 Body mass index (BMI) [Ratio] 22.6 kg/m2 Altaf Metz MD Work Phone: [facility] 03-30-2024 10:39-0400 Body weight 63.5 kg Altaf Metz MD Work Phone: [facility] 03-30-2024 10:39-0400 Diastolic blood pressure 69 mm[Hg] Altaf Metz MD Work Phone: [facility] 03-30-2024 10:39-0400 Heart rate 56 /min Altaf eMtz MD Work Phone: [facility] 03-30-2024 10:39-0400 Systolic blood pressure 110 mm[Hg] Altaf Metz MD Work Phone: [facility] 02-08-2024 11:36-0400 Body temperature 98.6 [degF] Abner Hermosillo MD Work Phone: [facility] 02-08-2024 11:36-0400 Diastolic blood pressure 57 mm[Hg] Abner Hermosillo MD Work Phone: [facility] 02-08-2024 11:36-0400 Heart rate 57 /min Abner Hermosillo MD Work Phone: [facility] 02-08-2024 11:36-0400 Respiratory rate 16 /min Abner Hermosillo MD Work Phone: [facility] 02-08-2024 11:36-0400 SaO2% (BldA) [Mass fraction] 97 % Abner Hermosillo MD Work Phone: [facility] 02-08-2024 11:36-0400 Systolic blood pressure 122 mm[Hg] Abner Hermosillo MD Work Phone: [facility] 07-22-2023 08:41-0500 Body height 167.6 cm Altaf Metz MD Work Phone: [facility] 07-22-2023 08:41-0500 Body mass index (BMI) [Ratio] 22.6 kg/m2 Altaf Metz MD Work Phone: [facility] 07-22-2023 08:41-0500 Body weight 63.5 kg Altaf Metz MD Work Phone: [facility] 04-29-2023 08:42-0500 Body height 167.6 cm Nguyễn Ramosfiglio PA-C Work Phone: [facility] 04-29-2023 08:42-0500 Body mass index (BMI) [Ratio] 22.6 kg/m2 Nguyễn Ramosfiglio PA-C Work Phone: [facility] 04-29-2023 08:42-0500 Body weight 63.5 kg Nguyễn Ramosfiglio PA-C Work Phone: [facility] 04-29-2023 08:42-0500 Diastolic blood pressure 60 mm[Hg] Nguyễn Ramosfiglio PA-C Work Phone: [facility] 04-29-2023 08:42-0500 Systolic blood pressure 100 mm[Hg] Nguyễn Ramosfiglio PA-C Work Phone: [facility] 03-25-2023 09:50-0400 Diastolic blood pressure 63 mm[Hg] Altaf Metz MD Work Phone: [facility] 03-25-2023 09:50-0400 Systolic blood pressure 104 mm[Hg] Altaf eMtz MD Work Phone: [facility] 03-25-2023 07:26-0400 Body temperature 98.71 [degF] Altaf Metz MD Work Phone: [facility] 03-25-2023 07:26-0400 Heart rate 64 /min Altaf Metz MD Work Phone: [facility] 03-25-2023 07:26-0400 Respiratory rate 16 /min Altaf Metz MD Work Phone: [facility] 03-25-2023 07:26-0400 SaO2% (BldA) [Mass fraction] 95 % Altaf Metz MD Work Phone: [facility] 03-24-2023 06:28-0400 Body height 167.6 cm Altaf Metz MD Work Phone: [facility] 03-24-2023 06:28-0400 Body mass index (BMI) [Ratio] 22.6 kg/m2 Altaf Metz MD Work Phone: [facility] 03-24-2023 06:28-0400 Body weight 63.5 kg Altaf Metz MD Work Phone: [facility] 02-06-2023 13:14-0400 Diastolic blood pressure 61 mm[Hg] Abner Hermosillo MD Work Phone: [facility] 02-06-2023 13:14-0400 Heart rate 65 /min Abner Hermosillo MD Work Phone: [facility] 02-06-2023 13:14-0400 Respiratory rate 16 /min Abner Hermosillo MD Work Phone: [facility] 02-06-2023 13:14-0400 SaO2% (BldA) [Mass fraction] 100 % Abner Hermosillo MD Work Phone: [facility] 02-06-2023 13:14-0400 Systolic blood pressure 123 mm[Hg] Abner Hermosillo MD Work Phone: [facility] 01-28-2023 08:53-0400 Body height 166.4 cm Altaf Metz MD Work Phone: [facility] 01-28-2023 08:53-0400 Body mass index (BMI) [Ratio] 22.94 kg/m2 Altaf Metz MD Work Phone: [facility] 01-28-2023 08:53-0400 Body weight 63.5 kg Altaf Metz MD Work Phone: [facility] 01-28-2023 08:53-0400 Diastolic blood pressure 76 mm[Hg] Altaf Metz MD Work Phone: [facility] 01-28-2023 08:53-0400 Systolic blood pressure 118 mm[Hg] Altaf Metz MD Work Phone: [facility] 12-29-2022 12:03-0400 Body height 167.6 cm Garo Steele MD Work Phone: [facility] 12-29-2022 12:03-0400 Body weight 65.77 kg Garo Steele MD Work Phone: [facility] 12-29-2022 12:03-0400 Diastolic blood pressure 58 mm[Hg] Garo Steele MD Work Phone: [facility] 12-29-2022 12:03-0400 Heart rate 64 /min Garo Steele MD Work Phone: [facility] 12-29-2022 12:03-0400 Respiratory rate 16 /min Garo Steele MD Work Phone: [facility] 12-29-2022 12:03-0400 Systolic blood pressure 106 mm[Hg] Garo Steele MD Work Phone: [facility] 11-21-2022 09:38-0400 Body temperature 97.3 [degF] Dr. Gaor Steele Work Phone: [facility] 11-21-2022 09:38-0400 Body weight 65.[address] Garo Steele Work Phone: [facility] 11-21-2022 09:38-0400 Respiratory rate 18 /min Dr. Garo Steele Work Phone: [facility] 11-19-2022 11:36-0400 Body height 166.4 cm Altaf Metz MD Work Phone: [facility] 11-19-2022 11:36-0400 Body mass index (BMI) [Ratio] 22.94 kg/m2 Altaf Metz MD Work Phone: [facility] 11-19-2022 11:36-0400 Body weight 63.5 kg Altaf Metz MD Work Phone: [facility] 10-22-2022 11:40-0400 Body height 165.[address] Garo Steele Work Phone: [facility] 10-22-2022 11:40-0400 Body mass index (BMI) [Ratio] 23.9 kg/m2 Dr. Garo Steele Work Phone: [facility] 10-22-2022 11:40-0400 Body weight 65.[address] Garo Steele Work Phone: [facility] 10-22-2022 11:40-0400 Diastolic blood pressure 60 mm[Hg] Dr. Garo Steele Work Phone: [facility] 10-22-2022 11:40-0400 Heart rate 59 /min Dr. Garo Steele Work Phone: [facility] 10-22-2022 11:40-0400 Respiratory rate 16 /min Dr. Garo Steele Work Phone: [facility] 10-22-2022 11:40-0400 Systolic blood pressure 97 mm[Hg] Dr. Garo Steele Work Phone: [facility] 06-27-2022 13:41-0500 Body temperature 96.69 [degF] Garo Steele MD Work Phone: [facility] 06-27-2022 13:41-0500 Body weight 67.59 kg Garo Steele MD Work Phone: [facility] 06-27-2022 13:41-0500 Diastolic blood pressure 62 mm[Hg] Garo Steele MD Work Phone: [facility] 06-27-2022 13:41-0500 Heart rate 66 /min Garo Steele MD Work Phone: [facility] 06-27-2022 13:41-0500 Respiratory rate 18 /min Garo Steele MD Work Phone: [facility] 06-27-2022 13:41-0500 SaO2% (BldA) [Mass fraction] 96 % Garo Steele MD Work Phone: [facility] 06-27-2022 13:41-0500 Systolic blood pressure 112 mm[Hg] Garo Steele MD Work Phone: [facility] 02-21-2022 11:02-0400 Body temperature 98.2 [degF] Abner Hermosillo MD Work Phone: [facility] 02-21-2022 11:02-0400 Diastolic blood pressure 56 mm[Hg] Abner Hermosillo MD Work Phone: [facility] 02-21-2022 11:02-0400 Heart rate 60 /min Abner Hermosillo MD Work Phone: [facility] 02-21-2022 11:02-0400 Respiratory rate 16 /min Abner Hermosillo MD Work Phone: [facility] 02-21-2022 11:02-0400 SaO2% (BldA) [Mass fraction] 96 % Abner Hermosillo MD Work Phone: [facility] 02-21-2022 11:02-0400 Systolic blood pressure 110 mm[Hg] Abner Hermosillo MD Work Phone: [facility] 02-11-2022 13:10-0400 Diastolic blood pressure 60 mm[Hg] Abner Hermosillo MD Work Phone: 0(087)817-414997 [address] 02-11-2022 13:10-0400 Heart rate 87 /min Abner Hermosillo MD Work Phone: 8(326)532-064048 [place] [address] 02-11-2022 13:10-0400 Respiratory rate 18 /min Abner Hermosillo MD Work Phone: 4(667)841-055748 [place] [address] 02-11-2022 13:10-0400 SaO2% (BldA) [Mass fraction] 98 % Abner Hermosillo MD Work Phone: 3(380)853-827048 [place] [address] 02-11-2022 13:10-0400 Systolic blood pressure 125 mm[Hg] Abner Hermosillo MD Work Phone: 7(105)736-913148 [place] [address] 02-11-2022 12:52-0400 Body temperature 97.5 [degF] Abner Hermosillo MD Work Phone: 7(946)656-240248 [place] [address] 02-11-2022 05:24-0400 Body height 167.6 cm Abner Hermosillo MD Work Phone: 4(440)504-376848 [place] [address] 02-11-2022 05:24-0400 Body mass index (BMI) [Ratio] 24.37 kg/m2 Abner Hermosillo MD Work Phone: 8(469)328-501148 [place] [address] 02-11-2022 05:24-0400 Body weight 68.49 kg Abner Hermosillo MD Work Phone: 5(564)970-991448 [place] [address] 01-27-2022 11:31-0400 Body mass index (BMI) [Ratio] 24.34 kg/m2 Abner Hermosillo MD Work Phone: 1(991)785-798348 [place] [address] 01-27-2022 11:31-0400 Body temperature 98.4 [degF] Abner Hermosillo MD Work Phone: [facility] 01-27-2022 11:31-0400 Body weight 69.45 kg Abner Hermosillo MD Work Phone: [facility] 01-27-2022 11:31-0400 Diastolic blood pressure 60 mm[Hg] Abner Hermosillo MD Work Phone: [facility] 01-27-2022 11:31-0400 Heart rate 62 /min Abner Hermosillo MD Work Phone: 6(038)294-986695 [place] [address] 01-27-2022 11:31-0400 Respiratory rate 16 /min Abner Hermosillo MD Work Phone: [facility] 01-27-2022 11:31-0400 SaO2% (BldA) [Mass fraction] 95 % Abner Hermosillo MD Work Phone: 8(083)802-470697 [address] 01-27-2022 11:31-0400 Systolic blood pressure 123 mm[Hg] Abner Hermosillo MD Work Phone: [facility] 12-03-2021 08:53-0400 Body height 165.[address] Geovanni Foreman Work Phone: [facility] Work Phone: 12-03-2021 08:53-0400 Body mass index (BMI) [Ratio] 25 kg/m2 Dr. Geovanni Foreman Work Phone: [facility] Work Phone: 12-03-2021 08:53-0400 Body temperature 97.6 [degF] Dr. Geovanni Foreman Work Phone: [facility] Work Phone: 12-03-2021 08:53-0400 Body weight 68.[address] Geovanni Foreman Work Phone: [facility] Work Phone: 12-03-2021 08:53-0400 Diastolic blood pressure 71 mm[Hg] Dr. Geovanni Foreman Work Phone: [facility] Work Phone: 12-03-2021 08:53-0400 Heart rate 62 /min Dr. Geovanni Foreman Work Phone: [facility] Work Phone: 12-03-2021 08:53-0400 Respiratory rate 16 /min Dr. Geovanni Foreman Work Phone: [facility] Work Phone: 12-03-2021 08:53-0400 SaO2% (BldA) [Mass fraction] 98 % Dr. Geovanni Foreman Work Phone: [facility] Work Phone: 12-03-2021 08:53-0400 Systolic blood pressure 111 mm[Hg] Dr. Geovanni Foreman Work Phone: [facility] Work Phone: 11-12-2021 10:04-0400 Body height 165.[address] Geovanni Foreman Work Phone: [facility] Work Phone: 11-12-2021 10:04-0400 Body mass index (BMI) [Ratio] 25.4 kg/m2 Dr. Geovanni Foreman Work Phone: [facility] Work Phone: 11-12-2021 10:04-0400 Body temperature 97.9 [degF] Dr. Geovanni Foreman Work Phone: [facility] Work Phone: 11-12-2021 10:04-0400 Body weight 69.[address] Geovanni Foreman Work Phone: [facility] Work Phone: 11-12-2021 10:04-0400 Diastolic blood pressure 64 mm[Hg] Dr. Geovanni Foreman Work Phone: [facility] Work Phone: 11-12-2021 10:04-0400 Heart rate 69 /min Dr. Geovanni Foreman Work Phone: [facility] Work Phone: 11-12-2021 10:04-0400 Respiratory rate 14 /min Dr. Geovanni Foreman Work Phone: [facility] Work Phone: 11-12-2021 10:04-0400 SaO2% (BldA) [Mass fraction] 97 % Dr. Geovanni Foreman Work Phone: [facility] Work Phone: 11-12-2021 10:04-0400 Systolic blood pressure 108 mm[Hg] Dr. Geovanni Foreman Work Phone: [facility] Work Phone: 11-12-2021 10:04-0400 Body height 165.[address] Geovanni Foreman Work Phone: [facility] Work Phone: 11-12-2021 10:04-0400 Body mass index (BMI) [Ratio] 25.4 kg/m2 Dr. Geovanni Foreman Work Phone: [facility] Work Phone: 11-12-2021 10:04-0400 Body temperature 97.9 [degF] Dr. Geovanni Foreman Work Phone: [facility] Work Phone: 11-12-2021 10:04-0400 Body weight 69.[address] Geovanni Foreman Work Phone: [facility] Work Phone: 11-12-2021 10:04-0400 Diastolic blood pressure 64 mm[Hg] Dr. Geovanni Foreman Work Phone: [facility] Work Phone: 11-12-2021 10:04-0400 Heart rate 69 /min Dr. Geovanni Foreman Work Phone: [facility] Work Phone: 11-12-2021 10:04-0400 Respiratory rate 14 /min Dr. Geovanni Foreman Work Phone: [facility] Work Phone: 11-12-2021 10:04-0400 SaO2% (BldA) [Mass fraction] 97 % Dr. Geovanni Foreman Work Phone: [facility] Work Phone: 11-12-2021 10:04-0400 Systolic blood pressure 108 mm[Hg] Dr. Geovanni Foreman Work Phone: [facility] Work Phone: 10-04-2021 12:55-0400 Body temperature 98.1 [degF] Abner Hermosillo MD Work Phone: [facility] 10-04-2021 12:55-0400 Diastolic blood pressure 74 mm[Hg] Abner Hermosillo MD Work Phone: [facility] 10-04-2021 12:55-0400 Heart rate 64 /min Abner Hermosillo MD Work Phone: [facility] 10-04-2021 12:55-0400 Respiratory rate 16 /min Abner Hermosillo MD Work Phone: [facility] 10-04-2021 12:55-0400 SaO2% (BldA) [Mass fraction] 96 % Abner Hermosillo MD Work Phone: [facility] 10-04-2021 12:55-0400 Systolic blood pressure 142 mm[Hg] Abner Hermosillo MD Work Phone: [facility] Encounters Encounter Date Encounter Type Care Provider Facility Start: 04-21-2025 End: 04-21-2025 ambulatory Garo Steele Facility:[facility] Start: 04-20-2025 ambulatory Dangelo Cevallos Facility: [facility] Start: 04-19-2025 End: 04-19-2025 ambulatory Jessy Roman Facility:[facility] Start: 04-18-2025 End: 04-18-2025 ambulatory GARO STEELE Facility:[facility] Start: 04-18-2025 Patient encounter procedure GARO STEELE [facility] Start: 04-11-2025 End: 04-11-2025 ambulatory Jimmie Newell Facility:[facility] Start: 03-28-2025 End: 03-28-2025 Patient encounter procedure Jessie LOPEZ -[facility] Work Phone: Start: 03-28-2025 End: 03-28-[address] Garo Steele MD Work Phone: -[facility] Start: 03-24-2025 End: 03-24-[address] Jimmie Newell MD -[facility] Work Phone: Start: 03-24-2025 End: 03-24-[address] Garo Steele MD Work Phone: -[facility] Start: 03-17-2025 End: 03-17-[address] Jimmie Newell MD -[facility] Work Phone: Start: 03-17-2025 End: 03-17-[address] Garo Steele MD Work Phone: -[facility] Start: 03-15-2025 ambulatory GARO STEELE Faci lity:[facility] Start: 03-15-2025 End: 03-15-2025 Office outpatient visit 25 minutes Altaf Metz MD Work Phone: [facility] [place] Comment on above: Left hip pain (Prima ry Dx); Arthritis of left hip Start: 03-15-2025 End: 03-15-2025 Subsequent hospital visit by physician Jaylan Gan PA-C Work Phone: [facility] Comment on above: Left hip pain Start: 03-15-2025 End: 03-15-2025 ambulatory JAYLAN [facility] Start: 03-14-2025 ambulatory Jimmie Newell Facility:[facility] Start: 03-14-2025 Non-patient / Non-visit Jessie Jessy Kiki Lay -[facility] Start: 03-14-2025 End: 03-14-2025 Admission to same day surgery center Dr. Jimmie Newell MD [facility] Start: 03-14-2025 End: 03-14-[address] Garo Steele MD Work Phone: [facility] Start: 03-02-2025 End: 03-02-2025 ambulatory GARO STEELE Facility:[facility] Start: 02-06-2025 End: 02-06-2025 Telephone encounter Altaf Metz MD Work Phone: [facility] Comment on above: Other (Dental prophy laxis) Start: 01-31-2025 End: 01-31-[address] Clay Jean MD -[facility] Start: 01-31-2025 End: 01-31-[address] Garo Steele MD Work Phone: -[facility] Start: 01-27-2025 End: 01-30-2025 ambulatory Garo Steele MD Work Phone: [facility] Comment on above: Allied Health Visit (Medication Adherence Outreach ) Allied Health Visit (Medication Adherence) Start: 01-23-2025 End: 01-23-2025 Patient encounter procedure Le IBANEZ -[facility] Work Phone: Start: 01-23-2025 End: 01-23-[address] Garo Steele MD Work Phone: -[facility] Start: 01-11-2025 End: 01-11-2025 ambulatory Garo Steele MD Work Phone: [facility] Comment on above: Allied Health Visit (Medication Adherence Outreach ) Start: 01-03-2025 End: 01-03-2025 Patient encounter procedure Le IBANEZ -[facility] Work Phone: Start: 01-03-2025 End: 01-03-[address] Garo Steele MD Work Phone: -[facility] Start: 12-29-2024 End: 12-29-[address] Garo Steele MD Work Phone: -Radiology [facility] Start: 12-29-2024 End: 12-29-2024 Patient encounter procedure Le Harris CUT FILE CLERK-C -Radiology [facility] Work Phone: Start: 12-29-2024 End: 12-29-2024 ambulatory Leher Harris Facility:[facility] Start: 12-12-2024 End: 12-12-[address] Garo Steele MD Work Phone: -Physical Therapy Start: 12-12-2024 End: 12-12-[address] Garo Steele MD -Physical Therapy Work Phone: Start: 12-09-2024 Non-patient / Non-visit Gomez Saba nd DO -[facility] Start: 12-09-2024 End: 12-09-2024 Admission to same day surgery center Gomez Reynoso DO -Endoscopy Work Phone: Start: 12-09-2024 End: 12-09-[address] Garo Steele MD Work Phone: -Endoscopy Start: 11-30-[address] Jessie Steele MD -Physical Therapy Work Phone: Start: 11-25-2024 ambulatory Gomez [place] Facility :[facility] Start: 11-14-2024 End: 11-14-2024 Patient encounter procedure Dangelo Cevallos CUT FILE CLERK-C -[facility] Work Phone: Start: 11-14-2024 End: 11-14-[address] Garo Steele MD Work Phone: [facility] Work Phone: Start: 11-02-[address] Jessie Steele MD -Physical Therapy Work Phone: Start: 10-28-2024 End: 10-28-2024 Patient encounter procedure Nabil Kim APRN.MANAGER [place] Work Phone: Hematology/Oncology Start: 10-28-2024 End: 10-28-2024 ambulatory Nabil Kim APRN.MANAGER [place] Work Phone: Hematology/Oncology Comment on above: Ductal carcinoma in situ (DCIS) of right breast (Primary Dx); H/O bilateral mastectomy Start: 10-19-2024 End: 10-19-2024 Follow-up encounter Garo Steele MD Work Phone: [facility] [place] Start: 10-18-2024 End: 10-21-2024 Telephone encounter Garo Steele MD Work Phone: [facility] Comment on above: Results Start: 10-15-2024 End: 10-15-2024 Follow-up encounter Garo Steele MD Work Phone: [facility] Start: 10-14-2024 End: 10-14-2024 ambulatory GARO STEELE Facility:[facility] Start: 10-13-2024 ambulatory GARO STEELE Faci lity:[facility] Start: 10-13-2024 End: 10-13-2024 Subsequent hospital visit by physician [facility] Work Phone: Radiology Comment on above: Chronic pain of both shoulders [M25.511, G89.29, M25.512] Start: 10-13-2024 End: 10-13-2024 Office outpatient visit 25 minutes Garo Steele MD Work Phone: [facility] Comment on above: Chronic pain of both shoulders (Primary Dx); Primary osteoarthritis of right knee; Carpal tunnel syndrome on right; Neuropathic pain, leg, right; Hyperlipidemia, unspecified hyperlipidemia type; Unilateral primary osteoarthritis, left hip Start: 10-13-2024 End: 10-13-2024 ambulatory GARO STEELE Facility:[facility] Start: 07-25-2024 End: 07-28-2024 Refill Altaf Metz MD Work Phone: [facility] [place] Start: 06-30-2024 End: 06-30-2024 ambulatory Atilio Lanierate [facility] Start: 06-30-2024 End: 06-30-2024 Patient encounter procedure Atilio Tracey [facility] Comment on above: Population Health Na vigation Outreach ([employer] AWV Initiative) Start: 05-20-2024 ambulatory Claysergei Jean Facility:[facility] Start: 05-20-2024 End: 05-20-2024 ambulatory Dangelo Cevallos Facility:[facility] Start: 04-15-2024 End: 04-15-2024 Patient encounter procedure Garo Steele MD Work Phone: [facility] [place] Comment on above: Medicare annual well ness visit, subsequent (Primary Dx); Contusion of left chest wall, subsequent encounter; Contusion of left shoulder, subsequent encounter; Closed head injury, subsequent encounter; Fall, subsequent encounter; Chest pain, unspecified type; Screening for depression; Encounter for screening examination for other mental health and behavioral disorders Start: 04-15-2024 End: 04-15-2024 ambulatory Nimo Gaviria RN Work Phone: [employer] Comment on above: AZUCENA BURGOS RN ( ED utilization review per request of payer) Start: 04-12-2024 End: 04-12-2024 Patient encounter procedure Lucille Ashley APRN.CNP Work Phone: [facility] Comment on above: Pain (Primary Dx); Headache, unspecified headache type Start: 03-30-2024 End: 03-30-2024 Office outpatient visit 25 minutes Altaf Metz MD Work Phone: [facility] [place] Comment on above: S/P total knee arthr oplasty, right (Primary Dx); Left hip pain Start: 03-30-2024 End: 03-30-2024 ambulatory ALTAF METZ [facility] Start: 03-30-2024 End: 03-30-2024 Subsequent hospital visit by physician Altaf Metz MD Work Phone: [facility] Comment on above: Left hip pain S/P total knee arthr oplasty, right Start: 03-28-2024 End: 04-04-2024 Telephone encounter Altaf Metz MD Work Phone: [facility] Comment on above: Advice Only Start: 02-08-2024 End: 02-08-2024 Office outpatient visit 15 minutes Abner Hermosillo MD Work Phone: Department of Plastic Surgery Comment on above: Neuroma (Primary Dx) Start: 01-18-2024 End: 01-19-2024 Telephone encounter Altaf Metz MD Work Phone: [facility] Clinical Communication Comment on above: New Med Request Start: 11-05-2023 End: 11-05-2023 ambulatory [facility] Start: 11-05-2023 End: 11-05-2023 Subsequent hospital visit by physician [address] Comment on above: Hyperlipidemia, unsp ecified; Family history of ischemic heart disease and other diseases of the circulatory system Start: 09-19-2023 Refill Nguyễn Gregg PA-C Work Phone: [facility] Start: 07-22-2023 End: 07-22-2023 Office outpatient visit 15 minutes Altaf Metz MD Work Phone: [facility] Comment on above: Primary osteoarthrit is of right knee; S/P total knee arthroplasty, right Start: 07-22-2023 End: 07-22-2023 Subsequent hospital visit by physician Madeline Houston PA-C Work Phone: [facility] [employer] Comment on above: Status post total ri ght knee replacement Start: 07-20-2023 Orders Only Madeline Tanner Work Phone: [facility] Comment on above: Status post total ri ght knee replacement (Primary Dx) Start: 07-01-2023 End: 07-01-2023 ambulatory [facility] Work Phone: Start: 07-01-2023 End: 07-01-2023 Discharged Recurring [facility] Work Phone: Start: 06-22-2023 Refill Altaf Metz MD Work Phone: [facility] Start: 06-19-2023 Telephone encounter Altaf Metz MD Work Phone: [facility] Comment on above: Advice Only Start: 04-29-2023 End: 04-29-2023 Postop follow up visit related to original px Nguyễn Sherrieo PA-C Work Phone: [facility] Comment on above: S/P total knee arthr oplasty, right (Primary Dx); Primary osteoarthritis of right knee; S/P total knee arthroplasty, left Start: 04-29-2023 End: 04-29-2023 Subsequent hospital visit by physician Nguyễn Gregg PA-C Work Phone: [facility] Comment on above: S/P total knee arthr oplasty, right Start: 04-20-2023 Orders Only Nguyễn Gregg PA-C Work Phone: [facility] Comment on above: S/P total knee arthr oplasty, right (Primary Dx) Start: 04-13-2023 Telephone encounter Nguyễn Troy neri PA-C Work Phone: [facility] Comment on above: Post-op Problem Start: 04-06-2023 End: 04-06-2023 Postop follow up visit related to original px Nguyễn Gregg PA-C Work Phone: [facility] Comment on above: S/P total knee arthr oplasty, left Start: 03-24-2023 End: 03-25-2023 Subsequent hospital visit by physician Altaf Metz MD Work Phone: [facility] Comment on above: S/P total knee arthr oplasty, left (Primary Dx) Start: 02-26-2023 ambulatory Nguyễn Manzanojami BUCKNER Work Phone: [facility] Start: 02-06-2023 End: 02-06-2023 Subsequent hospital visit by physician Pati CERRATO Work Phone: [facility] [employer] Comment on above: Arrived Start: 02-06-2023 End: 02-06-2023 Office outpatient visit 25 minutes Abner Hermosillo MD Work Phone: Department of Plastic Surgery Comment on above: H/O bilateral mastec rell (Primary Dx); History of right breast cancer Start: 02-04-2023 End: 02-04-[address] Garo Steele Work Phone: [facility] Work Phone: Start: 02-04-2023 End: 02-04-[address] Garo Steele Work Phone: [facility] Work Phone: Start: 01-28-2023 End: 01-28-2023 Office outpatient visit 25 minutes Altaf Metz MD Work Phone: [facility] Comment on above: Primary osteoarthrit is of right knee Start: 01-28-2023 End: 01-28-2023 Subsequent hospital visit by physician Altaf Metz MD Work Phone: [facility] Comment on above: Right knee pain, uns pecified chronicity Start: 12-29-2022 End: 12-29-2022 Patient encounter procedure Garo Steele MD Work Phone: [facility] Comment on above: Medicare annual well ness visit, subsequent (Primary Dx); Neuropathic pain, leg, right; Other low back pain; Primary osteoarthritis of right knee; Hyperlipidemia, unspecified hyperlipidemia type; History of breast cancer; Multiple thyroid nodules Start: 12-22-2022 End: 12-22-[address] Garo Steele Work Phone: [facility] Work Phone: Start: 12-22-2022 End: 12-22-[address] Garo Steele Work Phone: [facility] Work Phone: Start: 11-21-2022 End: 11-21-[address] Garo Steele Work Phone: [facility] Work Phone: Start: 11-19-2022 End: 11-19-2022 Office outpatient new 30 minutes Altaf Metz MD Work Phone: [facility] Comment on above: Primary osteoarthrit is of right knee (Primary Dx) Start: 11-17-2022 Orders Only Nguyễn Gregg PA-C Work Phone: [facility] Comment on above: Right knee pain, uns pecified chronicity (Primary Dx) Start: 11-13-2022 Non-patient / Non-visit Dr. Arianna Steele Work Phone: [facility] Start: 11-13-2022 End: 11-13-[address] Garo Steele Work Phone: [facility] Work Phone: Start: 11-13-2022 End: 11-13-[address] Garo Steele Work Phone: [facility] Start: 11-13-[address] Gar[facility] Steele [facility] Start: 10-22-2022 End: 10-22-[address] Garo Steele Work Phone: [facility] Start: 08-25-[address] Jessie Steele Work Phone: [facility] Start: 06-27-2022 End: 06-27-2022 Patient encounter procedure Garo Steele MD Work Phone: [facility] Comment on above: Hyperlipidemia, unsp ecified hyperlipidemia type (Primary Dx); Neuropathic pain, leg, right; Osteopenia of multiple sites; Mild memory disturbance; History of breast cancer Start: 06-10-2022 Telephone encounter Garo rios MD Work Phone: [facility] Comment on above: Patient Update Start: 05-12-2022 End: 05-12-2022 Clinical Support Encounter Abner Hermosillo MD Work Phone: [facility] Comment on above: H/O bilateral mastec rell (Primary Dx) Start: 05-12-2022 End: 05-12-2022 Postop follow up visit related to original px Abner Hermosillo MD Work Phone: Department of Plastic Surgery Comment on above: H/O bilateral mastec rell (Primary Dx) Start: 04-15-2022 End: 04-15-2022 ambulatory [facility] Work Phone: Start: 04-15-2022 End: 04-15-2022 Discharged Recurring [facility] Start: 04-15-2022 Registered Recurring [facility] Start: 02-24-2022 End: 02-24-2022 Clinical Support [...] Pre-op exam Start: 01-29-2022 End: 01-29-2022 ambulatory [facility] Work Phone: Start: 01-29-2022 End: 01-29-[address] Karolina Leong Work Phone: [facility] Start: 01-27-2022 End: 01-27-2022 Patient encounter procedure Abner Hermosillo MD Work Phone: Department of Plastic Surgery Comment on above: Pre-op exam (Primary Dx) Start: 01-27-2022 End: 01-27-2022 Preprocedural examination done Abner Hermosillo MD Work Phone: Department of Plastic Surgery Start: 01-13-2022 End: 01-13-[address] Karolina Leong Work Phone: [facility] Work Phone: Start: 01-13-2022 End: 01-13-[address] Karolina Leong Work Phone: [facility] Start: 12-17-2021 End: 12-17-[address] Geovanni Foreman Work Phone: [facility] Start: 12-03-2021 End: 12-03-[address] Geovanni Foreman Work Phone: [facility], [facility] Start: 12-03-2021 End: 12-03-[address] Geovanni Foreman Work Phone: [facility] Start: 11-25-2021 End: 11-25-[address] Geovanni Foreman Work Phone: [facility] Start: 11-21-2021 End: 11-21-[address] Geovanni Foreman Work Phone: [facility] Start: 11-12-2021 End: 11-12-[address] [facility] Fore[facility] Start: 11-12-2021 End: 11-12-2021 Encounter for other preprocedural examination Dr. Geovanni Foreman Work Phone: [facility] Internal Medicine Start: 11-12-2021 End: 11-12-[address] Geovanni Foreman Work Phone: [facility] Internal Medicine Start: 10-04-2021 End: 10-04-2021 Office outpatient visit 25 minutes Abner Hermosillo MD Work Phone: Department of Plastic Surgery Comment on above: H/O bilateral mastec rell (Primary Dx) Start: 10-01-2021 End: 10-01-2021 Patient encounter procedure [facility] Start: 09-12-2021 End: 09-12-2021 Patient encounter procedure [facility] Start: 08-14-2021 End: 08-14-2021 [facility] Start: 06-18-2021 End: 06-18-2021 [facility] Procedures Date Procedure Procedure Detail Performing Clinician Start: 03-14-2025 Release of trigger finger Dr. Garo Steele MD Work Phone: Start: 01-31-2025 Plain X-ray of finger Dr. Garo Steele MD Work Phone: Start: 12-29-[address] Garo Steele MD Work Phone: Start: 12-09-[address] Garo Steele MD Work Phone: Start: 04-15-2024 Ecg routine ecg w/least 12 lds i&r only Garo Steele MD Work Phone: Start: 04-15-2024 Adult depression screening assessment Nimo Gaviria RN Work Phone: Start: 07-22-2023 Radiologic examination knee 1/2 views Madeline Martinll PA-C Work Phone: Start: 04-29-2023 Radiologic examination knee 1/2 views Nguyễn Manzanolio PA-C Work Phone: Start: 03-25-2023 Basic metabolic panel calcium total Nguyễn Manzanolio PA-C Work Phone: Start: 03-24-2023 Radiologic examination knee 1/2 views Nguyễn Ramosfiglio PA-C Work Phone: Start: 03-24-2023 End: 03-24-2023 Arthrp kne condyle&platu medial&lat compartments Altaf Metz MD Work Phone: Start: 02-06-2023 Ct thorax w/o contrast material Pati Boles SALESPERSON [employer] Work Phone: Start: 02-06-2023 Us breast uni real time with image limited Pati Boles [employer]-MANAGER [place] Work Phone: Start: 11-13-2022 US scan of [...] Abner Hermosillo MD Work Phone: Start: 11-03-2018 Bijan Steele MD Work Phone: History of bilateral mastectomy H/O bilateral mastectomy Abner Hermosillo MD Work Phone: History of bilateral mastectomy H/O bilateral mastectomy bAner Hermosillo MD Work Phone: History of bilateral mastectomy H/O bilateral mastectomy Abner Hermosillo MD Work Phone: History of bilateral mastectomy H/O bilateral mastectomy Abner Hermosillo MD Work Phone: History of bilateral mastectomy H/O bilateral mastectomy Pati Boles [employer]ERSON [employer]-MANAGER [place] Work Phone: History of bilateral mastectomy H/O bilateral mastectomy Garo Steele MD Work Phone: History of bilateral mastectomy H/O bilateral mastectomy Garo Steele MD Work Phone: History of bilateral mastectomy H/O bilateral mastectomy Nabil Kim [employer]ERSON [employer].MANAGER [place] Work Phone: Plan of Treatment Date Care Activity Detail Author Start: 10-15-2027 Diabetes Screening Diabetes Screening [facility] Start: 04-13-2026 Diabetes Screening Diabetes Screening [facility] Start: 10-30-2025 End: 10-30-2025 ambulatory 10/30/2025 8:00 AM EDT Visit (SP) Office Hematology/Oncology [address] [place] [id number] Nabil Kim APRN.MANAGER [place] [address] [place] [address] 1 YR OV* Hematology/Oncology Comment on above: 1 YR OV* Start: 04-18-2025 End: 04-18-2025 Patient encounter procedure 04/18/2025 10:20 AM EST Office Visit [facility] [address] [place] [address] Garo Steele MD [address] [place] [address] 6 month follow up/Medicare Wellness [facility] Comment on above: 6 month follow up/Medicare Wellness Start: 04-15-2025 Anxiety Screening Anxiety Screening [facility] Start: 04-15-2025 Depression Screening Depression Screening [facility] Start: 04-04-2025 End: 04-04-2025 Patient encounter procedure 04/04/2025 11:00 AM EDT Office Visit [facility] General Surgery [address] [place] [address] Jaylan Sebastian MD [address] [facility] [address] [place] [address] consult for 2nd opinion for kolb's records to be faxed to provider [facility] Comment on above: consult for 2nd opinion for kolb's re cords to be faxed to provider Start: 03-28-2025 End: 03-28-2025 Patient encounter procedure Mucous cyst of digit of left hand -[facility] Work Phone: Start: 03-15-2025 End: 03-15-2025 Patient encounter procedure 03/15/2025 9:45 AM EDT Office Visit [facility] Orth[facility] [address] [place] [address] [place] [address] Altaf Metz MD [address] [facility] [address] [place] [address] [facility] Start: 03-14-2025 Anes nerve muscle tdn fascia&bursa forearm wrist ANESTH LOWER ARM SURGERY [facility] Start: 03-14-2025 Exc lesion tdn shth/jt capsl hand/fngr REMOVE TENDON SHEATH LESION [facility] Start: 03-14-2025 Patient discharge [facility] Start: 03-13-2025 End: 03-13-2026 XR Hip - left 3 Views XR hip left 2 or 3 views Imaging Routine Left hip pain Expected: 03/13/2025, Expires: 03/13/2026 [facility] Work Phone: Comment on above: Expected: 03/13/2025, Expires: Start: 02-20-2025 End: 02-20-2025 Patient encounter procedure 02/20/2025 2:30 PM EDT Office Visit [facility] GENERAL SURGERY DEPARTMENT [address] [facility] 3rd [place] [address] Jaylan Sebastian MD [address] [facility] [address] [place] [phone] consult for 2nd opinion for kolb's records to be faxed to provider [facility] GENERAL SURGERY DEPARTMENT Comment on above: consult for 2nd opinion for kolb's re cords to be faxed to provider Start: 02-13-2025 COVID-19 Vaccine ( season) COVID-19 Vaccine ( season) [facility] Start: 02-13-2025 Influenza vaccination [facility] Start: 01-31-2025 Plain X-ray of finger Finger(s) Min 2 Views [facility] Start: 01-31-2025 XR Finger GE 2 Views [facility] Start: 12-09-2024 Egd insert guide wire dilator passage esophagus EGD GUIDE WIRE INSERTION [facility] Start: 12-09-2024 Egd transoral biopsy single/multiple EGD BIOPSY SINGLE/MULTIPLE [facility] Start: 12-09-2024 Patient discharge [facility] Start: 11-29-2024 LIPID SCREEN LIPID SCREEN [facility] Start: 10-28-2024 End: 10-28-2024 ambulatory 10/28/2024 8:00 AM EDT Visit (SP) Office Hematology/Oncology [address] [place] [address] Nabil Kim APRN.MANAGER [place] [address] [place] [address] CUT FILE CLERK/HISTORY OF BREAST CANCER/DR STEELE REFERRING* Hematology/Oncology Comment on above: CUT FILE CLERK/HISTORY OF BREAST CANCER/DR STEELE REFERRING* Start: 10-14-2024 End: 01-13-2025 CBC panel - Blood by Automated count COMPLETE BLOOD COUNT Lab Routine Primary osteoarthritis of right knee Expected: 10/14/2024, Expires: 01/13/2025 [facility] Comment on above: Expected: 10/14/2024, Expires: Start: 10-14-2024 End: 01-13-2025 Comprehensive metabolic 2000 panel - Serum or Plasma COMPREHENSIVE METABOLIC PANEL Lab Routine Hyperlipidemia, unspecified hyperlipidemia type Expected: 10/14/2024, Expires: 01/13/2025 [facility] Comment on above: Expected: 10/14/2024, Expires: Start: 10-14-2024 End: 01-13-2025 Lipid 1996 panel - Serum or Plasma LIPID PANEL, FASTING Lab Routine Hyperlipidemia, unspecified hyperlipidemia type Expected: 10/14/2024, Expires: 01/13/2025 [facility] Comment on above: Expected: 10/14/2024, Expires: Start: 10-13-2024 End: 10-13-2024 Patient encounter procedure [facility] Comment on above: 6 month follow up 6 month [facility]*Per [employer] Initiative- G0438, [id number] Modifier 25* Start: 06-15-2024 Advance Directive Discussion Advance Directive Discussion [facility] Start: 06-15-2024 Medicare Advantage Annual Wellness Visit Medicare Advantage Annual Wellness Visit [facility] Start: 06-01-2024 End: 06-01-2024 Patient encounter procedure 06/01/2024 10:15 AM EST Office Visit [facility] Orthopedics - [facility] [address] [place] [address] [place] [address] Altaf Metz MD [address] [place] [address] [address] [place] [address] [facility] Orthoped[facility] - [facility] Start: 03-30-2024 End: 03-23-2025 XR Knee - right 1 or 2 Views [facility] Work Phone: Comment on above: Expected: 03/30/2024, Expires: Once for 1 Occurrenc es starting 03/30/2024 until 03/30/2024 Start: 03-30-2024 End: 03-23-2025 XR knees anteroposterior standing bilateral [facility] Comment on above: Expected: 03/30/2024, Expires: 5 Once for 1 Occurrenc es starting 03/30/2024 until 03/30/2024 Start: 03-04-2024 End: 03-04-2024 Patient encounter procedure 03/04/2024 11:45 AM EDT Office Visit Department of Plastic Surgery [address] [place] [address] [place] [phone] [place] [address] [place] [phone] Department of Plastic Surgery Start: 02-24-2024 End: 02-24-2024 Admission to same day surgery center 02/24/2024 10:30 AM EDT - 02/24/2024 12:15 PM EDT Surgery [facility] [address] [place] [address] Abner Hermosillo MD [address] [phone] REINNERVATION TARGETED MUSCLE [facility] Comment on [...] Hospital Encounter [facility] [address] [place] [address] Abner [facility]osillo MD [facility] [facility] [address] [place] [phone] Neuroma [facility] Comment on above: Neuroma Start: 02-14-2024 COVID-19 Vaccine ( season) COVID-19 Vaccine () [facility] Start: 02-14-2024 Covid-19 Vaccine () Covid-19 Vaccine () [facility] Start: 02-14-2024 Influenza vaccination [facility] Start: 02-10-2024 End: 02-10-2024 Anesthesia consultation 02/10/2024 8:00 AM EDT Pre-Operative Nurse Assessment [facility] [address] [place] [address], [place] [address] Abner Hermosillo MD 114[address] [facility] [address] [place] [phone] [facility] Start: 02-08-2024 End: 02-08-2024 Patient encounter procedure 02/08/2024 11:30 AM EDT Office Visit Department of Plastic Surgery [address] [place] [address] [place] [phone] Abner Hermosillo MD [address] [phone] Department of Plastic Surgery Start: 12-30-2023 COVID-19 VACCINE (2 - Moderna series) COVID-19 VACCINE (2 - Moderna series) [facility] Comment on above: Postponed from 08/13/2021 (Declined at t his time) Start: 11-04-2023 Colonoscopy COLONOSCOPY [facility] Start: 11-04-2023 COLORECTAL CANCER SCREENING COLORECTAL CANCER SCREENING [facility] Start: 07-22-2023 End: 07-22-2023 Patient encounter procedure 07/22/2023 8:45 AM EST Office Visit [facility] [address] [place] [address] [place] [phone] Altaf Metz MD 1 [facility] [address] [place], [place] [phone] [facility] Start: 07-20-2023 End: 07-20-2024 XR Knee - right 1 or 2 Views XR knee 1 or 2 views right Imaging Routine Status post total right knee replacement Expected: 07/20/2023, Expires: 07/20/2024 [facility] Work Phone: Comment on above: Expected: 07/20/2023, Expires: Start: 07-20-2023 End: 07-20-2024 XR knees anteroposterior standing bilateral XR knees anteroposterior standing bilateral Imaging Routine Status post total right knee replacement Expected: 07/20/2023, Expires: 07/20/2024 [facility] Comment on above: Expected: 07/20/2023, Expires: Start: 07-01-2023 Screening for osteoporosis DEXA SCAN DISCUSSION [facility] Start: 06-15-2023 Advance Directive Discussion Advance Directive Discussion [facility] Start: 06-15-2023 Medicare Advantage Annual Wellness Visit Medicare Advantage Annual Wellness Visit [facility] Start: 04-29-2023 End: 04-29-2023 Patient encounter procedure 04/29/2023 8:30 AM EST Office Visit [facility] [address] [place] [address] [place] [phone] Nguyễn Gregg PA-C [address] [facility] [address] [place] [address] [facility] Start: 04-29-2023 End: 04-29-2023 Documentation procedure 04/29/2023 8:[address] [facility] [address] [place] [address] [facility] Start: 04-20-2023 End: 04-20-2024 XR Knee - right 1 or 2 Views XR knee 1 or 2 views right Imaging Routine S/P total knee arthroplasty, right Expected: 04/20/2023, Expires: 04/20/2024 [facility] Comment on above: Expected: 04/20/2023, Expires: Start: 04-20-2023 End: 04-20-2024 XR knees anteroposterior standing bilateral XR knees anteroposterior standing bilateral Imaging Routine S/P total knee arthroplasty, right Expected: 04/20/2023, Expires: 04/20/2024 [facility] Work Phone: Comment on above: Expected: 04/20/2023, Expires: Start: 04-13-2023 End: 04-13-2024 Comprehensive metabolic 1998 panel - Serum or Plasma Comprehensive metabolic panel Lab Routine S/P total knee arthroplasty, left Expected: 04/13/2023 (Approximate), Expires: 04/13/2024 [facility] Work Phone: Comment on above: Expected: 04/13/2023 (Approximate), Expi res: 04/13/2024 Start: 03-24-2023 End: 03-24-2023 Admission to same day surgery center 03/24/2023 9:30 AM EDT - 03/24/2023 10:30 AM EDT Surgery [facility] MAIN OR [address] [place] [address] Altaf Metz MD [address] [place] [address] [place] [address] RIGHT TOTAL KNEE ARTHROPLASTY [26822 (CPT )] [facility] OR Comment on above: RIGHT TOTAL KNEE ARTHROPLASTY [15211 (CP T )] Start: 03-24-2023 End: 03-24-2023 Arthrp kne condyle&platu medial&lat compartments TOTAL KNEE REPLACEMENT Unilateral primary osteoarthritis, right knee 03/24/2023 9:30 AM EDT [facility] Operating Room Start: 03-24-2023 Subsequent hospital visit by physician 03/24/2023 7:30 AM EDT Hospital Encounter [facility] MAIN OR [address] [place] [phone] Altaf Metz MD 1 [facility] [address] [place] [address] [facility] MAIN OR Start: 03-20-2023 End: 03-20-2023 Patient encounter procedure 03/20/2023 1:30 PM EDT Office Visit Department of Plastic Surgery [address] [facility] 0 [place] [phone] Abner Hermosillo MD [address] [facility] [address] [place] [address] Department of Plastic Surgery Start: 03-10-2023 End: 03-10-2023 Admission to establishment 03/10/2023 9:30 AM EDT Pre-Admission Testing [facility] Pre-Admit Testing [address] [place] [id number] Altaf Metz MD [address] [facility] [address] [place] [address] [facility] Pre-Admit Testing Start: 2023 RSV Immunization for Adults (1 - 1-dose 75+ series) RSV Immunization for Adults (1 - 1-dose 75+ series) [facility] Start: 2023 RSV Vaccine (1 - 1-dose 75+ series) RSV Vaccine (1 - 1-dose 75+ series) [facility] Start: 02-13-2023 COVID-19 Vaccine ( season) COVID-19 Vaccine ( season) [facility] Start: 02-13-2023 Influenza vaccination [facility] Start: 12-25-2022 End: 02-24-2023 CBC panel - Blood by Automated count CBC Lab Routine Mild memory disturbance Expected: 12/25/2022, Expires: 02/24/2023 [facility] Work Phone: Comment on above: Expected: 12/25/2022, Expires: 3 Start: 12-25-2022 End: 02-24-2023 Cobalamin (Vitamin B12) [Mass/volume] in Serum or Plasma VITAMIN B12 BLOOD Lab Routine Mild memory disturbance Expected: 12/25/2022, Expires: 02/24/2023 [facility] Work Phone: Comment on above: Expected: 12/25/2022, Expires: 3 Start: 12-25-2022 End: 02-24-2023 Comprehensive metabolic 2000 panel - Serum or Plasma COMP METABOLIC PANEL Lab Routine Mild memory disturbance Expected: 12/25/2022, Expires: 02/24/2023 [facility] Work Phone: Comment on above: Expected: 12/25/2022, Expires: 3 Start: 12-25-2022 End: 02-24-2023 Lipid 1996 panel - Serum or Plasma LIPID PANEL BASIC Lab Routine Hyperlipidemia, unspecified hyperlipidemia type Expected: 12/25/2022, Expires: 02/24/2023 [facility] Work Phone: Comment on above: Expected: 12/25/2022, Expires: 3 Start: 12-25-2022 End: 02-24-2023 Thyrotropin [Units/volume] in Serum or Plasma TSH BLD Lab Routine Mild memory disturbance Expected: 12/25/2022, Expires: 02/24/2023 [facility] Work Phone: Comment on above: Expected: 12/25/2022, Expires: 3 Start: 11-29-2022 DIABETES SCREEN DIABETES SCREEN [facility] Start: 11-19-2022 End: 11-19-2022 Patient encounter procedure 11/19/2022 Office Visit Orthopedic Surgery Altaf Metz MD [address] [facility] [address] [place] [address] [facility] Start: 11-17-2022 End: 11-18-2023 XR Knee - right 1 or 2 Views XR knee 1 or 2 views right Imaging Routine Right knee pain, unspecified chronicity Expected: 11/17/2022, Expires: 11/18/2023 [facility] Work Phone: Comment on above: Expected: 11/17/2022, Expires: 4 Start: 11-17-2022 End: 11-18-2023 XR knees anteroposterior standing bilateral XR knees anteroposterior standing bilateral Imaging Routine Right knee pain, unspecified chronicity Expected: 11/17/2022, Expires: 11/18/2023 [facility] Comment on above: Expected: 11/17/2022, Expires: 4 Start: 09-12-2022 End: 09-12-2022 Patient encounter procedure Department of Plastic Surgery Start: 06-15-2022 ADVANCE DIRECTIVE DISCUSSION ADVANCE DIRECTIVE DISCUSSION [facility] Start: 06-15-2022 DEPRESSION ASSESSMENT DEPRESSION ASSESSMENT [facility] Start: 05-12-2022 End: 05-12-2022 Patient encounter procedure 05/12/2022 Office Visit Plastic Surgery Abner Hermosillo MD [address] [facility] [address] [place] [id number] Department of Plastic Surgery Start: 02-21-2022 End: 02-21-2022 Patient encounter procedure Department of Plastic Surgery Start: 02-13-[address] [facility] Start: 02-11-2022 End: 02-11-2022 Admission to same day surgery center 02/11/2022 Surgery Multispecialty Abner Hermosillo [facility] [address] [facility] [address] [place] [address] REMOVAL BREAST IMPLANT INTACT CCCT PERIOP Comment [...] Hospital Encounter Multispecialty Abner Hermosillo MD [address] [facility] [address] [place] [address] Pre-op exam CCCT PERIOP Comment [...] Routine Pre-op exam Expected: 01/27/2022, Expires: 01/27/2023 [facility] Work Phone: Comment on above: Expected: 01/27/2022, Expires: 3 Start: 01-27-2022 End: 01-27-2023 HEMOGLOBIN & HEMATOCRIT HEMOGLOBIN & HEMATOCRIT Lab Routine Pre-op exam Expected: 01/27/2022, Expires: 01/27/2023 [facility] Comment on above: Expected: 01/27/2022, Expires: 3 Start: 01-27-2022 End: 01-27-2022 Patient encounter procedure 01/27/2022 Office Visit Plastic Surgery Abner Hermosillo MD [address] [facility] [address] [place] [id number] Department of Plastic Surgery Start: 08-13-2021 COVID-19 Vaccine (2 - Booster for Moderna series) COVID-19 Vaccine (2 - Booster for Moderna series) [facility] Start: 08-13-2021 COVID-19 Vaccine (2 - Moderna series) COVID-19 Vaccine (2 - Moderna series) [facility] Start: 07-16-2021 COVID-19 VACCINE (2 - Moderna series) COVID-19 VACCINE (2 - Moderna series) [facility] Start: 05-19-2020 SHINGRIX VACCINE (2 of 2) SHINGRIX VACCINE (2 of 2) [facility] Start: 05-19-2020 Zoster vaccine hzv live for subcutaneous use ZOSTER (SHINGLES) VACCINE (2 of 2) [facility] Start: 05-19-2020 Zoster Vaccines (2 of 2) Zoster Vaccines (2 of 2) [facility] Start: 2013 Pneumococcal vaccination PNEUMOCOCCAL VACCINE SERIES (1 - PCV) [facility] Start: 2008 RSV Immunization aged 60 or older (1 - 1-dose 60+ series) RSV Immunization aged 60 or older (1 - 1-dose 60+ series) [facility] Start: 2008 RSV patients and/or patients aged 60+ years (1 - 1-dose 60+ series) RSV patients and/or patients aged 60+ years (1 - 1-dose 60+ series) [facility] Start: 2008 RSV VACCINE (1 - 1-dose 60+ series) RSV VACCINE (1 - 1-dose 60+ series) [facility] Start: 1998 SHINGRIX VACCINE (1 of 2) SHINGRIX VACCINE (1 of 2) [facility] Start: 1998 Zoster vaccine hzv live for subcutaneous use ZOSTER (SHINGLES) VACCINE (1 of 2) [facility] Start: 1993 COLOGUARD (FIT-DNA) COLOGUARD (FIT-DNA) [facility] Start: 1993 Colonoscopy COLORECTAL CANCER SCREENING DISCUSSION [facility] Start: [address] COLONOGRAPHY [facility] Start: 1993 FECAL OCCULT BLOOD FECAL OCCULT BLOOD [facility] Start: 1993 Screening for malignant neoplasm of colon COLORECTAL CANCER SCREENING DISCUSSION [facility] Start: 1993 SIGMOIDOSCOPY SIGMOIDOSCOPY [facility] Start: 1988 Fasting lipid profile LIPID SCREENING [facility] Start: 1988 Lipid panel LIPID SCREENING [facility] Start: 1988 Screening for malignant neoplasm of breast Mammogram [facility] Start: 1970 DTaP/Tdap/Td Vaccines (1 - Tdap) DTaP/Tdap/Td Vaccines (1 - Tdap) [facility] Start: 1969 Screening for malignant neoplasm of cervix CERVICAL CANCER SCREENING DISCUSSION [facility] Start: 1967 DTaP/Tdap/Td Vaccines (1 - Tdap) DTaP/Tdap/Td Vaccines (1 - Tdap) [facility] Start: 1967 Third diphtheria, tetanus and acellular pertussis (DTaP) vaccination TDAP (ADULT) [facility] Start: 1967 Urine microalbumin profile [facility] Start: 1966 Anxiety Screening Anxiety Screening [facility] Start: 1966 Depression Screening Depression Screening [facility] Start: 1966 Hepatitis C screening Hepatitis C Screening [facility] Start: [address] [facility] Start: 1960 Depression Screening Depression Screening [facility] Start: 1955 DTaP/Tdap/Td Vaccines (1 - Tdap) DTaP/Tdap/Td Vaccines (1 - Tdap) [facility] Start: 1953 COVID-19 VACCINE (1) COVID-19 VACCINE (1) [facility] Start: 1948 COVID-19 VACCINE (#1) COVID-19 VACCINE (#1) [facility] Start: 1948 Hepatitis B Vaccines (1 of 3 - 3-dose series) Hepatitis B Vaccines (1 of 3 - 3-dose series) [facility] Start: 1948 Hepatitis C antibody, confirmatory test HEPATITIS C VIRUS SCREENING [facility] Start: 1948 Hepatitis C screening HEPATITIS C VIRUS SCREENING [facility] Start: 1948 Lipid panel Lipid Panel [facility] Start: 1948 Medicare Advantage Annual Wellness Visit (AWV) Medicare Advantage Annual Wellness Visit (AWV) [facility] Start: 1948 Medicare Annual Wellness Visit Medicare Annual Wellness Visit (AWV) [facility] Start: 1948 Screening for malignant neoplasm of colon [facility] Start: [address] [facility] Start: [address] [facility] Breast reconstructio n free flap RECONSTRUCTION BREAST FREE FLAP H/O bilateral mastectomy [facility] MAIN OR CBC W Auto Different ial panel - Blood [facility] Work Phone: CT angiography of coronary arteries [facility] End: 11-05-2023 CT for calcium scoring WO contrast and CTA W contrast IV Heart and coronary arteries [facility] Work Phone: Comment on above: Once for 1 Occurrences starting 11/05/19 until 11/05/2023 End: 07-27-2023 DXA-AXIAL SKELETON DXA-AXIAL SKELETON Radiology Routine Osteopenia of multiple sites 1 Occurrences starting 06/27/2022 until 07/27/2023 [facility] Work Phone: Comment on above: 1 Occurrences starting 06/27/2022 until 07/27/2023 ECG COMPLETE ECG COMPLETE ECG Routine Chest pain, unspecified type 04/15/2024 4:05 PM EDT [facility] Work Phone: Hepatic function panel [facility] Immt insj brst prost h flwg mastopexy mast/rcnstj INSERTION BREAST PROSTHESIS IMMEDIATE H/O bilateral mastectomy [facility] MAIN OR Immt insj brst prost h flwg mastopexy mast/rcnstj INSERTION BREAST PROSTHESIS IMMEDIATE H/O bilateral mastectomy [facility] Lipid 1995 panel - S eamon or Plasma [facility] Work Phone: Lipid 1995 panel - S eamon or Plasma [facility] Nerve pedicle transf er first stage REINNERVATION TARGETED MUSCLE H/O bilateral mastectomy [facility] MAIN OR Open periprosthetic capsulotomy breast CAPSULOTOMY BREAST H/O bilateral mastectomy [facility] MAIN OR Open periprosthetic capsulotomy breast CAPSULOTOMY BREAST H/O bilateral mastectomy [facility] Periprosthetic capsulectomy breast CAPSULECTOMY BREAST H/O bilateral mastectomy [facility] MAIN OR Removal intact mamma ry implant REMOVAL BREAST IMPLANT INTACT H/O bilateral mastectomy [facility] MAIN OR Removal intact mamma ry implant REMOVAL BREAST IMPLANT INTACT H/O bilateral mastectomy [facility] MAIN OR Removal intact mamma ry implant REMOVAL BREAST IMPLANT INTACT H/O bilateral mastectomy [facility] SURG PATH REQUEST [facility] Comment on above: Release Upon Ordering for 1 Occurrences starting 02/11/2022 T4 free measurement [facility] Work Phone: Thyroid stimulating hormone measurement [facility] Work Phone: Triiodothyronine, fr ee measurement [facility] Work Phone: US Thyroid gland [facility] Work Phone: [facility] End: 03-30-2024 XR Hip - left 3 Views [facility] Work Phone: Comment on above: Once for 1 Occurrences starting 03/30/20 24 until 03/30/2024 End: 03-15-2025 XR Hip - left 3 Views [facility] Comment on above: Once for 1 Occurrences starting 03/15/20 until 03/15/2025 End: 01-28-2023 XR Knee - right 1 or 2 Views [facility] Work Phone: Comment on above: Once for 1 Occurrences starting 01/29/20 23 until 01/28/2023 End: 01-28-2023 XR knees anteroposterior standing bilateral [facility] Comment on above: Once for 1 Occurrences starting 01/29/20 23 until 01/28/2023 End: 11-12-2025 XR Shoulder - left 3 Views XR SHOULDER GENERAL 3V OR MORE AP/TRUE AP/OTHER LEFT Radiology Routine Chronic pain of both shoulders 1 Occurrences starting 10/13/2024 until 11/12/2025 [facility] Work Phone: Comment on above: 1 Occurrences starting 10/13/2024 until 11/12/2025 XR Shoulder - left 3 Views XR SHOULDER GENERAL 3V OR MORE AP/TRUE AP/OTHER LEFT Radiology Routine Chronic pain of both shoulders 10/13/2024 12:19 PM EDT [facility] End: 11-12-2025 XR Shoulder - right 3 Views XR SHOULDER GENERAL 3V OR MORE AP/TRUE AP/OTHER RIGHT Radiology Routine Chronic pain of both shoulders 1 Occurrences starting 10/13/2024 until 11/12/2025 [facility] Comment on above: 1 Occurrences starting 10/13/2024 until 11/12/2025 XR Shoulder - right 3 Views XR SHOULDER GENERAL 3V OR MORE AP/TRUE AP/OTHER RIGHT Radiology Routine Chronic pain of both shoulders 10/13/2024 12:19 PM EDT [facility] Immunizations Immunization Date Immunization Notes Care Provider Tereza peters 04-22-2022 influenza, high-dose , quadrivalent vaccine (FLUZONE HIGH DOSE QUADRIVALENT) Garo Steele MD Work Phone: [facility] 04-22-2022 influenza virus vaccine, unspecified formulation Altaf Metz MD Work Phone: [facility] 02-01-2021 influenza, injectabl e, quadrivalent, contains preservative Garo Steele MD Work Phone: [facility] 02-01-2021 influenza virus vaccine, unspecified formulation Abner Hermosillo MD Work Phone: [facility] 03-24-2020 influenza, high-dose , quadrivalent vaccine (FLUZONE HIGH DOSE QUADRIVALENT) Garo Steele MD Work Phone: [facility] 03-24-2020 pneumococcal polysaccharide vaccine, 23 valent Garo Steele MD Work Phone: [facility] 03-24-2020 zoster vaccine recombinant Garo Steele MD Work Phone: [facility] 03-24-2020 zoster vaccine, unspecified formulation Cielo Mercado [facility] 04-01-2019 influenza, high dose seasonal, preservative-free Garo Steele MD Work Phone: [facility] 04-01-2019 pneumococcal conjuga te vaccine, 13 valent Garo Steele MD Work Phone: [facility] 03-10-2018 influenza virus vaccine, unspecified formulation Garo Steele MD Work Phone: [facility] 03-04-2018 influenza, high dose seasonal, preservative-free Garo Steele MD Work Phone: [facility] 04-07-2017 influenza, high dose seasonal, preservative-free Garo Steele MD Work Phone: [facility] 04-26-2016 influenza, high dose seasonal, preservative-free Garo Steele MD Work Phone: [facility] 05-24-2015 influenza, injectabl e, quadrivalent, contains preservative Garo Steele MD Work Phone: [facility] Work Phone: 05-12-2014 influenza, seasonal, injectable, preservative free Garo Steele MD Work Phone: [facility] 06-04-2013 influenza, high dose seasonal, preservative-free Garo Steele MD Work Phone: [facility] 06-04-2013 pneumococcal polysaccharide vaccine, 23 todd Steele MD Work Phone: [facility] Payers Date Payer Category Payer Self-pay [id number] 2022 Medicare HMO [employer] MEDICARE [id number] 2013 Medicare [id number] 2013 Medicare (Managed Care) [employer] [id number] 2013 Medicare [id number] 1948 Unknown [id number] [id number]. 1243 Unknown [id number] Unknown [id number] 2.840.1.261639.3.579.2. 462 Unknown [id number] 2.840.1.821658.3.579.2. 462 Unknown [id number] 2.16840.1.146845.3.579.2. 462 Unknown [id number] 2.840.1.063790.3.579.2. 462 Unknown [id number] 2.16840.1.912243.3.579.2. 462 Unknown [id number] 2.840.1.052346.3.579.2. 462 Unknown [id number] 2.16.840.1.036347.3.579.2. 462 Unknown [id number] 2.16.840.1.866885.3.579.2. 462 Unknown [id number] 2.840.1.817300.3.579.2. 462 Unknown [id number] 2.840.1.627446.3.579.2. 462 Unknown [id number] 2.840.1.090416.3.579.2. 462 Unknown [id number] 2.840.1.398085.3.579.2. 462 Unknown [id number] .840.1.120844.3.579.2. 462 Unknown [id number] 2.840.1.674293.3.579.2. 462 Unknown [id number] 2.840.1.883238.3.579.2. 462 Unknown [id number] 2.840.1.275682.3.579.2. 462 Unknown [id number] .840.1.618174.3.579.2. 462 Unknown [id number] .840.1.045028.3.579.2. 462 Unknown [id number] 2.840.1.752507.3.579.2. 462 Unknown [id number] 2.840.1.290182.3.579.2. 462 Unknown [id number] 2.840.1.282854.3.579.2. 462 Unknown [id number] 2.840.1.024229.3.579.2. 462 Unknown [id number] 2.840.1.000703.3.579.2. 462 Social History Date Type Detail Facility Start: 12-15-2013 End: 11-21-2022 Tobacco smoking status NHIS Unknown if ever smoked [facility] Start: 1950 Sex Assigned At Female W [facility] Start: 05-13-2021 End: 02-28-2025 Tobacco smoking status NHIS Never smoked tobacco [facility] Start: 05-13-2021 End: 11-19-2022 Tobacco use and exposure Smokeless tobacco non-user [facility] Start: 1950 Sex Assigned At Not on file O [facility] Start: 12-09-2019 End: 07-22-2023 Alcohol intake Current drinker of alcohol (finding) [facility] Start: 12-07-2019 End: 12-09-2019 History SDOH Alcohol Frequency 3 [facility] Start: 12-07-2019 End: 12-09-2019 History SDOH Alcohol Std Drinks 1 [facility] Start: 12-07-2019 History SDOH Social Connections Phone 5 [facility] Start: 12-07-2019 History SDOH Social Connections Get Together 2 [facility] Start: 12-07-2019 History SDOH Physica l Activity MPS 6 [facility] Start: 12-07-2019 Education 16 [facility] Start: 06-27-2022 End: 07-22-2023 Alcohol intake [facility] Start: 06-27-2022 Alcohol Comment 1 glass of wine [facility] Start: 11-19-2022 End: 07-22-2023 Tobacco use panel [facility] Do you belong to any clubs or organizations such as jain groups, unions, fraternal or athletic groups, or school groups? Yes [facility] Are you now , , , , never or living with a partner? [facility] How often to you hav e a drink containing alcohol? 2-3 time sa week [facility] Work Phone: How many standard drinks containing alcohol do you have on a typical day? 1 or 2 [facility] Work Phone: How often do you hav e 6 or more drinks on 1 occasion? Never [facility] Work Phone: Start: 05-16-2012 How hard is it for y ou to pay for the very basics like food, housing, medical care, and heating Not hard at all [facility] Do you feel stress - tense, restless, nervous, or anxious, or unable to sleep at night because your mind is troubled all the time - these days [OSQ] Not at all [facility] (I/We) worried wheth er (my/our) food would run out before (I/we) got money to buy more. Never true [facility] In the past 12 month s, was there a time when you were not able to pay the mortgage or rent on time? No [facility] Start: 01-18-2023 End: 11-05-2023 Exposure to SARS-CoV-2 (event) Not sure [facility] Start: 03-10-2023 Alcohol Comment liquor with di nner 3x week [facility] Start: 07-20-2023 Gender identity Identifies as female gender (finding) [facility] Start: 11-04-2022 Sex Female (finding) [facility] How often to you hav e a drink containing alcohol? 2-4 times a month [facility] Start: 10-28-2024 Sexual orientation Heterosexual (wallace hook) [facility] NEGATED: Highlighted row Not [facility] Medical Equipment Procedure Code Equipment Code Equipment Original Text Equipment Identifier Dates Implant Breast 470cc Smooth Surface Shell Gel P5.2cm - [id number] Start: 02-11-2022 Qki-Bx-Q-Kind Implant - [id number] Start: 04-28-2013 Comment on above: Description: 2.7 x 1 6mm locking screw Cement Bone Simplex P Full - [id number] Start: 03-24-2023 Base Tib Cement Attune Fb Sz5 - [id number] Start: 03-24-2023 Patella Dome Med Attune 32mm - [id number] FDA Start: 03-24-2023 Fem Cement Attun e Cr S6 Rt - [id number] Start: 03-24-2023 Insert Attune Rt Med Sz6 5mm - [id number] Start: 03-24-2023 Graft Skin [id number] Flexhd Thk.7-1.4mm Thin Medium Allograft - [id number] Start: 02-11-2022 Comment on above: Description: 0.7mm Graft Skin 82q43dn Flexhd Thk.7-1.4mm Thin Medium Allograft - [id number] Start: 02-11-2022 Comment on above: Description: 0.9mm Implant Breast 470cc Smooth Surface Shell Gel P5.2cm - [id number] Start: 02-11-2022 Mur-Tr-A-Kind Implant - [id number] Start: 04-28-2013 Comment on above: Description: cannula manuel screw Fcj-Dy-B-Kind Implant - [id number] Start: 04-28-2013 Comment on above: Description: mtd john te sm 10 degree right Jen-Ec-K-Kind Implant - [id number] Start: 04-28-2013 Comment on above: Description: 2.7 x 1 2 mm locking screw Knp-Ux-L-Kind Implant - [id number] Start: 04-28-2013 Comment on above: Description: 2.7 x 1 4mm locking screw Okl-Eq-L-Kind Implant - [id number] Start: 04-28-2013 Comment on above: Description: 2.7 x 1 8mm non locking screw Goals Date Patient Goal Desired Activity /State Functional Status Date Assessment Result Facility 05-29-2014 Are you deaf, or do you have serious difficulty hearing No 05/29/2014 8:25 AM Le Ansari Ma No [facility] 05-29-2014 Are you blind, or do you have serious difficulty seeing, even when wearing glasses No 05/29/2014 8:25 AM Le Ansari Ma No [facility] 05-29-2014 Do you have serious difficulty walking or climbing stairs No 05/29/2014 8:25 AM Le Ansari Ma No [facility] 05-29-2014 Do you have difficul ty dressing or bathing No 05/29/2014 8:25 AM Le Ansari Ma [facility] 05-29-2014 Because of a physica l, mental, or emotional condition, do you have difficulty doing errands alone such as visiting a physician's office or shopping No 05/29/2014 8:25 AM Le Ansari Ma [facility] Mental Status Date Assessment Result Facility 03-14-2025 Cognitive function Voice/Name [facility] Work Phone: 12-09-2024 Cognitive function Level Of Cons ciousness Awake;Drowsy [facility] Work Phone: 12-09-2024 Cognitive function Voice/Name [facility] Work Phone: 05-29-2014 Because of a physica l, mental, or emotional condition, do you have serious difficulty concentrating, remembering, or making decisions No 05/29/2014 8:25 AM HOWARD Marce DailyLe [facility] Clinical Notes 11-18-2018 to 04-18-2025 Note Date & Type Note Facility 04-18-2025 Note HNO ID: [id number] Author: GARO STEELE MD Service: ? Author [...] No drainage was noted. 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 EGD was done in November. She transferred to Dr. Nunes for a 2nd opinion and is scheduled for further testing. She is currently on Nexium and Pepcid. We reviewed sleep apnea history. She was diagnosed with obstructive sleep apnea in [place], and has been using her CPAP nightly for several years. She reported 5-6 hours of sleep using her CPAP, settings not known. Supplies come thru [employer]. She stopped gabapentin last year and neuropathy was controlled with compounded cream from her mortgage protection specialist. Once her GI issues are evaluated, [...] - DIAGNOSTIC 11/05/2017 COLONOSCOPY - DIAGNOSTIC 11/01/2018 [place] COLONOSCOPY FLX DX W/COLLJ SPEC WHEN PFRMD 06/11/2004 Colonoscopy COLPOPEXY VAGINAL INTRAPERITONEAL APPROACH 12/22/2013 USLF EGD DIAGNOSTIC 11/05/2017 [place] EGD DIAGNOSTIC 11/01/2018 [place] EGD DIAGNOSTIC 12/09/2024 EGD TRANSORAL BIOPSY SINGLE/MULTIPLE [...] BREAST RECONSTRUCTION Bilateral 12/2016 Dr. Gastelum in [place] TONSILLECTOMY PRIMARY/SECONDARY Tonsillectomy TOTAL KNEE REPLACEMENT Right 03/24/2023 [facility] VAG HYST 250 GM/< W/RMVL TUBEAND/OVARY [...] powder, diclofenac sodium powder, gabapentin powder, lidocaine CORRECTION powder in cream base (CPD) Apply 1-2 g to affected area four times a day as needed. Baclofen2%;hhinlbdvnn31%;vqizyhfmzi60%;li docaine6%. Per Altaf Metz MD (orthopedics). celecoxib [...] fingertip paronychia Neurol (more content not included)... [facility] 04-18-2025 Note HNO ID: [id number] Author: GARO STEELE MD Service: ? Author [...] PCP - General (Internal Medicine) Rosa Washburn APRN.MANAGER [place] as Mixing Tank Operator (Internal Medicine) Bud Stone MD (Surgery, Endoscopy) Nabil Kim APRN, CNP (Oncology) Outside specialists seen: Altaf Metz MD (Orthopedics) Clay Jean MD (Cardiology) Isidro Wong OD (Optometry) Abner Hermosillo MD (Plastic Reconstructive Surgery) [facility] Dermatology. Jimmie Newell MD (Plastic Surgeon) Cindy Reynoso MD (Gastroenterology) DME CPAP supplies: [employer]. Medical/Family history review Reviewed and updated problem [...] these from her pharmacy. Garo Steele MD [facility] 03-28-2025 Progress note [facility] 03-28-2025 Progress note Note Date/Time March 28, 2025 2:06pm [facility] [address], [address] [place] [address] OFFICE VISIT Date of Service: 03/28/25 MR#: [id number] Acct: [id number] Name: TARIK DUNHAM Rep #: [id number] : 1950 Provider: JESSICA Caro Age/Sex: 75/F Location: [facility] Status: Signed Intake Vital Signs 3 [...] 750 mg-465 mg 1 tab PO DAILY 12/08/2 5 03/28/25 History tablet magnesium carb,citrate,oxide 100 [...] pathology findings. The case was examined at [facility] by Dr. Butler (#[id number]) and the following diagnosis was rendered. A. [...] cyst of digit of left hand M67.442 [facility] Medical History History of Kolb's esophagus Back [...] continues. Patient was happy with plan. Dr. Neewll evaluated the patient as well and agrees with plan. 03/28/25 3544 <Electronically signed by Jessy LOPEZ > Date _ Jessy Izquierdo Signature: Date (if applicable) CC: ~ [facility] Work Phone: [phone]) 262-598410-10-2025 Progress [facility] [address] [place] [address] OFFICE VISIT Date of Service: 03/24/25 MR#: [id number] Acct: [id number] Name: TARIK DUNHAM Rep #: [id number] : 1950 Provider: Dr. Víctor Newell MD Age/Sex: 75/F Location: [facility] Status: Signed Intake Vital Signs 3 03/17/25 [...] pathology findings. The case was examined at [facility] by Dr. Butler (#[id number]) and the following diagnosis was rendered. A. [...] cyst of digit of left hand M67.442 [facility] Medical History History of Kolb's esophagus Back [...] Date (if applicable) Jessy Roman CC: ~ [facility]10-01-2025 NoteHNO ID: [id number] Author: RENETTA ORTIZ RT(Curtis) Service: Radiology Author [...] PATIENT PRESENTS WITH AN IMPLANTABLE OR ATTACHED SUPERVISOR HEAVY EQUIPMENT: No RADIOLOGY DEPARTMENT: General X-ray: Exam(s) Completed: GI/ Procedure(s): Esophogram with barium contrast PERIPHERAL IV DATA: Not applicable SIGNED BY: RT Kelly(R) March 15, 2025 2:02 [facility]10-01-2025 History of Present illness Narrative* Altaf Metz MD - 03/15/2025 9:45 AM EDT Images from the original note were not included. [facility] [address] [place] [address] [place] [address] Dept: [phone] Dept 03/15/2025 Chief Complaint Patient presents with [...] Resource Strain: Low Risk (10/12/2024) Received from [facility] Overall Financial Resource Strain (CARDIA) Difficulty of Paying Living Expenses: Not hard at all Food Insecurity: No Food Insecurity (10/12/2024) Received from [facility] Hunger Vital Sign Worried About Running Out of Food in the Last Year: Never true Ran Out of Food in the Last Year: Never true Transportation Needs: No Transportation Needs (10/12/2024) Received from [facility] PRAPARE - Transportation Lack of Transportation (Medical): No Lack of Transportation (Non-Medical): No Physical Activity: Insufficiently Active (10/12/2024) Received from [facility] Exercise Vital Sign Days of Exercise per Week: 3 days Minutes of Exercise per Session: 30 min Stress: No Stress Concern Present (10/12/2024) Received from [facility] [employer] [place] [employer] - Occupational Stress Questionnaire Feeling of Stress : Not at all Social Connections: Unknown (10/12/2024) Received from [facility] Social Connection and Isolation Panel [NHANES] Frequency of Communication with Friends and Family: More than three times a week Frequency of Social Gatherings with Friends and Family: More than three times a week Attends Episcopalian Services: More than 4 times per year Active Member of Clubs or Organizations: Patient declined Attends Club or Organization Meetings: Patient declined Marital Status: Intimate Partner Violence: Not on file Housing Stability: Unknown (12/07/2019) Received from [facility] Housing Stability Vital Sign Unable to Pay [...] 110, IR 30, ER 40, without pain. [facility] exam: negative. +PF/DF/EHL. SILT distally. DP/PT palpable. Straight leg raise negative for inciting radicular symptoms. LEFT HIP: Skin is warm, dry and intact. There are no rashes, lesions, or obvious scars. No tenderness to palpation. Greater trochanter is not tender. ROM shows flexion 70, IR 10, ER 20, with pain. [facility] exam: positive. +PF/DF/EHL. SILT distally. DP/PT palpable. [...] the following: A pre-surgical evaluation by an insole reinforcer will be arranged. Pre-operative laboratory tests as well as EKG which will be checked by the insole reinforcer. Will make arrangements with the operating room for proper time and staffing. Arrangements with the implant company to make sure the proper implants are made available. Social service arrangements for the patient, to include physical therapy at home versus in the outpatient setting, depending on patient preference. The chance for intermediate facility discharge is also plausible pending post-op therapy. Patient Discussion, Scripts, & Risk Assessment Checklist: [x] Detailed Consent Performed [x] Cardiology consult prior to surgery (i.e. CHF, stents) - yearly visit upcoming, need seen priorto surgery [x] Specialist managing patient (i.e. endocrine, nephrology, oncology) Consult GI at [facility] prior to surgery - having study done [...] INSTRUCTIONS Procedure: Left Total Hip Arthroplasty - [address] with anterior approach and robotic assisted guidance- 54T Time: 1 hour(s) Diagnosis: 1. Left hip [...] Iodinated Contrast Media Itching documented in this [facility]09-30-2025 Consult note [facility] Medical Records Department [address] [place] [address] Anesthesia Postop Eval II 03/14/25 0913 MR#: [id number] Acct: [id number] Name: TARIK DUNHAM Rep #:[id number] : 1950 75 From: Aaron Malone MD PCP: Dr. Garo Steele MD Status:R EG MOC Y Race: C Location: [place] [address]-1 Anesthesia Postop Eval I Sum Postop Eval Completion status Anesthesia document: Postop Eval 1 completed: Yes Anesthesia Postop Eval I Summary Anesthesia Postop Eval I Summary: Anesthesia Postop Eval I: Assessment Summary Airway patent Yes 03/14/25 08:14 JAVA SUPPORT ENGINEER.HBARR Spontaneous unlabored Yes 03/14/25 08:14 JAVA SUPPORT ENGINEER.HBARR respirations Mental status Awake 03/14/25 08:14 JAVA SUPPORT ENGINEER.HBARR nausea No 03/14/25 08:14 JAVA SUPPORT ENGINEER.HBARR Vomiting No 03/14/25 08:14 JAVA SUPPORT ENGINEER.HBARR Anesthesia Postop Eval I: Fluid Summary Crystalloid volume administer 500 03/14/25 08:14 JAVA SUPPORT ENGINEER.HBARR (ml) Colloids volume administered ( ml) Blood Product volume administered (ml) Total IV fluid infused 500 03/14/25 08:14 JAVA SUPPORT ENGINEER.HBARR Anesthesia Postop Eval I: Summary Notes Anesthesia Complication No 03/14/25 08:14 JAVA SUPPORT ENGINEER.HBARR Anesthesia Complication Comment: Post-operative progress note Anesthesia: Postop Eval II Evaluation Mental status: Awake and Calm Pain Level: 1 nausea: No Vomiting: No Complications Anesthesia Complication: No 03/14/25912 sathya COLEMAN> Date _ Aaron Malone MD Cosigner Signature: Date CC: ~ Signed [facility]09-30-2025 Consult note Author [facility] Note Date/Time March 14, 2025 7:31am [facility] Medical Records Department [address] [place] [address] Pre-Anesthesia Evaluation 03/14/25717 MR#: [id number] Acct: [id number] Name: TARIK DUNHAM Rep #:[id number] : 1950 75 From: Aaron Malone MD PCP: Dr. Garo Steele MD Status:R EG SDC Y Race: C Location: AC AC07-1 ASA Classification* ASA Classification ASA Classification: 2 [...] 01/29/22, 11:01 Hgb, (12.0-15.0) 12.3 g/dL 01/29/22, 11: Hct, (37-47) 37.4 % 01/29/22, 11:01 Plt Count, (150-450) 288 K/mm3 01/29/22, 11:01 CHEMISTRY Potassium, (3.5-5.1) 4.5 mmol/L 01/29/22, 11: Sodium, (136-145) 142 mmol/L 01/29/22, 11:01 BUN, (7-18) 15 mg/dL 01/29/22, 11:01 Creatinine, (0.55-1.02) 0.84 mg/dL 01/29/22, 11: Glucose, (74-106) 99 mg/dL 01/29/22, 11:01 TSH, (0.358-3.74) 3.40 uIU/mL 01/29/22, 11:01 COAG Pre-Assessment Diagnosis/Proposed Procedure Planned Operative Procedure(s): EXCISION MUCOUS CYST LEFT INDEX FINGER Anesthesia History Anesthesia History - file conversion operator: Anesthesia History - file conversion operator Hx Hospitalization No 02/28/25 08:58 Any Problems [...] sips of water?: Yes PONV PONV - file conversion operator: PONV - file conversion operator Female Yes 02/28/25 08:58 HX of Motion [...] 03/14/25 06:25 Respiratory Assessment Respiratory Assessment - file conversion operator: Respiratory Tract Infection Hx - file conversion operator Hx Respiratory Tract Infection No 02/28/25 08:58 STOP Sleep Apnea STOP Sleep Apnea - file conversion operator: STOP Sleep Apnea - file conversion operator Hx Hypertension No 02/28/25 08:58 Hx Sleep [...] 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 - file conversion operator: Tobacco Use History - file conversion operator Tobacco Use Smoking Status Never smoker 02/28/25 08:58 Hx Tobacco Use No 02/28/25 08:58 Years Smoking Packs Smoked per Day Smoking Cessation Date was within the last 15 years Hx Smoking Cessation Date Hx Smoking Cessation Counseling Hematologic Medial History Hematologic Hx - file conversion operator: 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 03/14/2531 <Electronically signed by Aaorn mcdonnell MD> Date _ Aaron Malone MD Cosigner Signature: Date CC: ~ Signed [facility] Work Phone: [phone]) 458-359609-30-2025 History and physical note Author Jessie Jiménez [facility] Note Date/Time March 14, 2025 7:28am [facility] Medical Records Department [address] [place] [address] H&P Exam - Surgical 03/14/25 0723 MR#: [id number] Acct: [id number] Name: TARIK DUNHAM Rep #:[id number] : 1950 75 From: Jessy LOPEZ PCP: Dr. Garo Steele MD Status:R [facility] Location: [place] [address] HPI - General HPI Narrative TARIK UDNHAM, is a 75 F who was seen [...] in the right hand, particularly in thefingertips. [facility] Medical History (Updated 02/28/25 @ 09:05 by [...] of oral oxycodone as well. Close follow-up. 03/14/25 0728 <Electronically signed by Jessy LOPEZ> Cosigner Signature (if applicable): CC: Dr. Garo Steele MD; JESSICA Mahajan~ Signed [facility] Work Phone: [phone] 225-381409-30-2025 Procedure note [facility] Medical Records Department [address] [place] [address] Operative Report 03/14/25 0745 MR#: [id number] Acct: [id number] Name: TARIK DUNHAM Rep #:[id number] : 1950 75 From: Jimmie Newell MD PCP: Dr. Garo Steele MD Status:R [facility] Location: [place] [address] Operative Report (Standard) Operative Information Date of Procedure: 03/14/25 Pre-Operative Diagnosis: Left index finger mucous cyst Post-Operative Diagnosis: Same Surgery/Procedure Performed: 1) Excision left index finger mucous cyst marklogic developer: Yes Acid Loader: Jessy Roman Tasks completed by human resources benefits assistant: Retracting Type of Anesthesia: Local MAC (7 [...] Newell MD; Dr. Garo Steele MD~ Signed [facility]09-30-2025 Consult note [facility] Medical Records Department [address] [place] [address] Anesthesia Postop Eval I 03/14/25811 MR#: [id number] Acct: [id number] Name: TARIK DUNHAM Rep #:[id number] : 1950 75 From: Elzbieta Roblero CRNA PCP: Dr. Garo Steele MD Status:R [facility] Y Race: C Location: [place] [address] Anesthesia: Postop Eval I Current Vital Signs [...] Yes 03/14/25829 NA> Date _ Elzbieta Roblero JAVA SUPPORT ENGINEER Cosigner Signature: Date CC: ~ Signed [facility]09-30-2025 Progress note [facility] Medical Records Department [address] [place] [address] Progress Note - Surgery 03/14/25 0734 MR#: [id number] Acct: [id number] Name: TARIK DUNHAM Rep #:[id number] : 1950 75 From: Jimmie Newell MD PCP: Dr. Garo Setele MD Status:R [facility] Location: [place] [address] Subjective Subjective Patient has some baseline collateral [...] Cosigner Signature (if applicable): CC: ~ Signed [facility]09-30-2025 Consult note [facility] Medical Records Department [address] [place] [address] Pre-Anesthesia Evaluation 03/14/25 0718 MR#: [id number] Acct: [id number] Name: TARIK DUNHAM Rep #:[id number] : 1950 75 From: Aaron Malone MD PCP: Dr. Garo Steele MD Status:R EG SDC Y Race: C Location: [place] [address]- ASA Classification* ASA Classification ASA Classification: 2 [...] INDEX FINGER Anesthesia History Anesthesia History - file conversion operator: Anesthesia History - file conversion operator Hx Hospitalization No 02/28/25 08:58 Any Problems [...] sips of water?: Yes PONV PONV - file conversion operator: PONV - file conversion operator Female Yes 02/28/25 08:58 HX of Motion [...] 03/14/25 06:25 Respiratory Assessment Respiratory Assessment - file conversion operator: Respiratory Tract Infection Hx - file conversion operator Hx Respiratory Tract Infection No 02/28/25 08:58 STOP Sleep Apnea STOP Sleep Apnea - file conversion operator: STOP Sleep Apnea - file conversion operator Hx Hypertension No 02/28/25 08:58 Hx Sleep [...] 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 - file conversion operator: Tobacco Use History - file conversion operator Tobacco Use Smoking Status Never smoker 02/28/25 08:58 Hx Tobacco Use No 02/28/25 08:58 Years Smoking Packs Smoked per Day Smoking Cessation Date was within the last 15 years Hx Smoking Cessation Date Hx Smoking Cessation Counseling Hematologic Medial History Hematologic Hx - file conversion operator: 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 Garo Steele MD Status:R [facility] Location: [place] [address] HPI - General HPI Narrative TARIK DUNHAM, [...] in the right hand, particularly in thefingertips. [facility] Medical History (Updated 02/28/25 @ 09:05 by [...] of oral oxycodone as well. Close follow-up. 03/14/25 0728 Cosigner Signature (if applicable): CC: Dr. Garo Steele MD; JESSICA Mahajan~ Signed [facility]09-18-2025 NoteHNO ID: [id number] Author: ?, ?, ? Service: ? Author Type: ? Type: Progress Notes Filed: 03/02/2025 11:59 Note Text: [facility]09-18-2025 NoteHNO ID: [id number] Author: BUD STONE MD Service: ? Author [...] 6-7 years. When she moved back to [place] 5 years ago her symptoms of GERD [...] BREAST RECONSTRUCTION Bilateral 12/2016 Dr. Gastelum in [place] TONSILLECTOMY PRIMARY/SECONDARY Tonsillectomy TOTAL KNEE REPLACEMENT Right 03/24/2023 [facility] VAG HYST 250 GM/< W/RMVL TUBEAND/OVARY 12/22/2013 TV[facility]/BSO WRIST RIGHT OP SURGERY Right 2018 ORIF Wrist fracture FAMILY HISTORY: FAMILY HISTORY Problem Relation Age of Onset Cancer Mother breast Heart Father [place] Osteoporosis Sister Osteopenia Osteoporosis Sister Osteopenia Hypertension Paternal Grandmother Stroke Paternal Grandmother No Known Problems Daughter No Known Problems Son SOCIAL HISTORY: SOCIAL HISTORY[1] (more content not included)...[facility]08-25-2025 Note* Addendum Note - Jaylan Gan PA-C - 02/06/2025 9:44 AM EDTAddended by: JAYLAN GAN on: 02/06/2025 09:44 AM Modules accepted: Orders [id number] Note* Addendum Note - Jaylan Gan PA-C - 02/06/2025 9:44 AM EDTAddended by: JAYLAN GAN on: 02/06/2025 09:44 AM Modules accepted: Orders [place] [id number] Note* Addendum Note - Jaylan Gan PA-C - 02/06/2025 9:44 AM EDTAddended by: JAYLAN GAN on: 02/06/2025 09:44 AM Modules accepted: Orders [facility] [id number] Miscellaneous Notes* Addendum Note - JOANNA Lord [...] Name of caller: Tarik Contact phone number: [phone] Relationship to Patient: patient Provider: Isaías Practice: Ortho Chief Complaint/Reason for Call: Patient called in stating she has a dental cleaning appointment for tomorrow 02/07- wondering if she still needs a dental prophyaxis prior too. She is s/p left tka on 03/24/2023. If she does please send antibiotic to [facility] pharmacy in [place]. If she no longer needs the antibiotic please upload a letter in her mychart to show to the dental clinic as she does not havethe fax number at this time. Best time of day caller can be reached: any Patient advised that office/PCP has 24-48 business hours to return their call: No documented in this [facility]08-25-2025 Note* Addendum Note - Erick Wilder LPN - 02/06/2025 9:33 AM EDTAddended by: ERICK WILDER on: 02/06/2025 09:33 AM Modules accepted: Orders [facility] [id number] Note* Addendum Note - Erick Wilder LPN - 02/06/2025 9:33 AM EDTAddended by: ERICK WILDER on: 02/06/2025 09:33 AM Modules accepted: Orders [place] [id number] Note* Addendum Note - Erick Wilder LPN - 02/06/2025 9:33 AM EDTAddended by: ERICK WILDER on: 02/06/2025 09:33 AM Modules accepted: Orders [id number] Telephone encounter Note* Telephone Encounter - Erick Wilder LPN - 02/06/2025 9:32 AM EDT Just until 03-24-25 Please sign [facility] [id number] Telephone encounter Note* Telephone Encounter - Parul Hernandez - 02/06/2025 9:26 AM EDT Name of caller: Tarik Contact phone number: [phone] Relationship to Patient: patient Provider: Isaías Practice: Ortho Chief Complaint/Reason for Call: Patient called in stating she has a dental cleaning appointment for tomorrow 02/07- wondering if she still needs a dental prophyaxis prior too. She is s/p left tka on 03/24/2023. If she does please send antibiotic to [facility] pharmacy in [place]. If she no longer needs the antibiotic please upload a letter in her mychart to show to the dental clinic as she does not havethe fax number at this time. Best time of day caller can be reached: any Patient advised that office/PCP has 24-48 business hours to return their call: No [facility] [id number] History of Present illness Narrative* Lisseth Cardona, [facility] - 01/27/2025 2:20 PM EDT Patient is identified through a medication adherence outreach initiative based on pharmacy claims data from: [facility] Medication Adherence Category: Statins Statin Medication: Lab Results Component Value Date LDL 142 (H) 10/14/2024 LDL 107 (H) 11/30/2019 LDL 117 (H) 08/04/2018 Rosuvastatin 5 mg daily Per retail pharmacy manager outreach encounter on 01/27/25: Spoke to pt [...] consists of: Unable to reach via phone, MyChart message sent Outcome of review: Pending patient [...] Based Care Pharmacy [facility] NoteHNO ID: [id number] Author: LISSETH CARDONA RPh Service: ? Author Type: Pharmacist Type: Progress Notes Filed: 01/30/2025 11:30 Note Text: Second Attempt Outreach consists of: Spoke with patient - she is unsure if statin was stopped but confirms she is only taking Zetia at this time. Med list updated. She will call Dangelo Cevallos CNP to confirm and update PCP care team via Heyday[employer], if needed. Outcome of review: Adherence concern addressed Lisseth Cardona RPh Value Based Care [facility]-2025 NoteHNO ID: [id number] Author: LISSETH CARDONA RPh Service: ? Author Type: Pharmacist Type: Progress Notes Filed: 01/30/2025 11:30 Note Text: Patient is identified through a medication adherence outreach initiative based on pharmacy claims data from: [facility] Medication Adherence Category: Statins Statin Medication: Lab Results Component Value Date LDL 142 (H) 10/14/2024 LDL 107 (H) 11/30/2019 LDL 117 (H) 08/04/2018 Rosuvastatin 5 mg daily Per retail pharmacy manager outreach encounter on 01/27/25: Spoke to pt and pt state she didn't think she should still be taking because doctor start her on Ezetimibe. Pharmacist escalation reasons: Confusion from provider's directions Per chart review: Neither rosuvastatin nor Zetia are listed on [facility] EPIC med list. Appears patient is following with outside provider, Dangelo Cevallos CNP, for hyperlipidemia management. Unable to review chart notes, but per reconcile dispense does appear Zetia was last dispensed 01/2025 and rosuvastatin last dispensed 12/08/24. Will clarify with patient. First Attempt Outreach consists of: Unable to reach via phone, [employer] message sent Outcome of review: Pending patient outreach Lisseth Cardona [facility]-2025 NoteHNO ID: [id number] Author: ESTRELLA SOLITARIO CPhT Service: ? Author Type: Trade Manager Type: Progress Notes Filed: 01/27/2025 15:25 Note Text: Patient is identified through a medication adherence outreach initiative based on pharmacy claims data from: [facility] Medication Adherence Category: Statins Second Attempt Medication(s) [...] to pharmacist - adherence Estrella [facility] History of Present illness Narrative* Estrella Solitario CPhT - 01/27/2025 10:54 AM EDT Patient is identified through a medication adherence outreach initiative based on pharmacy claims data from: [employer] Medication Adherence Category: Statins Second Attempt Medication(s) [...] Based Care Pharmacy Team documented in [facility]-2025 NotePatient Outreach (PHPOHE) TARIK DUNHAM ([id number]) 1950 F Date Time Provider Department 01/27/25 GARO STEELE PHPOHE During your visit today, we recorded the following information about you: Estrella Solitario CPhT 01/27/2025 3:25 PM Signed Patient is identified through a medication adherence outreach initiative based on pharmacy claims data from: [employer] Medication Adherence Category: Statins Second Attempt Medication(s) [...] Date Reviewed: 10/28/2024 Reviewed by: Nabil Kim APRN.MANAGER [place] - Fully Assessed Reason for Visit: Allied [...] powder, diclofenac sodium powder, gabapentin powder, lidocaine CORRECTION powder in cream base (CPD) Apply 1-2 g to affected area four times a day as needed. Baclofen2%;imwnuptkim64%;yfehlzvnfv61%;lidocaine6%. Per Altaf Metz MD (orthopedics). - gabapentin [...] [M1*03/30/2024 Encounter Status:Closed by ESTRELLA SOLITARIO on 01/27/25[facility]25 NotePatient Outreach (PHPOHE) TARIK DUNHAM ([id number]) 1950 F Date Time Provider Department 01/27/25 LISSETH CARDONA PHPOHE During your visit today, we recorded the following information about you: Lisseth Cardona RPh 01/30/2025 11:30 AM Signed Patient is identified through a medication adherence outreach initiative based on pharmacy claims data from: [employer] Medication Adherence Category: Statins Statin Medication: Lab Results Component Value Date LDL 142 (H) 10/14/2024 LDL 107 (H) 11/30/2019 LDL 117 (H) 08/04/2018 Rosuvastatin 5 mg daily Per retail pharmacy manager outreach encounter on 01/27/25: Spoke to pt [...] consists of: Unable to reach via phone, [employer] message sent Outcome of review: Pending patient [...] confirm and update PCP care team via SETVIt, if needed. Outcome of review: Adherence concern addressed Lisseth Cardona RPh [facility] Care Pharmacy Team Allergies As of Date: 01/27/2025 Noted Allergy Reaction IODINATED CONTRAST MEDIA 12/15/2013 9 - Itching Date Reviewed: 10/28/2024 Reviewed by: Nabil Kim APRN.CHRISTIANO - Fully Assessed Reason for [...] powder, diclofenac sodium powder, gabapentin powder, lidocaine CORRECTION powder in cream base (CPD) Apply 1-2 g to affected area four times a day as needed. Baclofen2%;fgtbexdhtc95%;rgtdawiagw68%;lidocaine6%. Per Altaf Metz MD (orthopedics). - gabapentin [...] [M1*03/30/2024 Encounter Status:Closed by LISSETH CARDONA on 01/30/25[facility] 01-20-2025 NoteHNO ID: [id number] Author: BENEDICTO TAO CPhT Service: ? Author Type: Trade Manager Type: Progress Notes Filed: 01/20/2025 13:02 Note Text: Patient is identified through a medication adherence outreach initiative based on pharmacy claims data from: [employer] Medication Adherence Category: Statins First Review Attribution Status: Correct attribution Medication(s) Rosuvastatin 5 mg Medication Status per portal/Epic "Reconcile Dispense": Not filled Medication Status per Profile Review: No issues per profile review Patient/provider appropriate for outreach? Yes Patient identified by name and Outreach to patient: Left Voicemail/message for return call What was primary intervention? No intervention Sent/Responded to Techpoint What was primary intervention? Remind patient to cotton picking machine operator or fill Benedicto Tao CPhT Value Based [facility]08-08-2025 NotePatient Outreach (PHPOHE) TARIK DUNHAM ([id number]) 1950 F Date Time Provider Department 01/20/25 GARO STEELE PHPOHMelinda During your visit today, we recorded the following information about you: Benedicto Tao CPhT 01/20/2025 1:02 PM Signed Patient is identified through a medication adherence outreach initiative based on pharmacy claims data from: [employer] Medication Adherence Category: Statins First Review Attribution Status: Correct attribution Medication(s) Rosuvastatin 5 mg Medication Status per portal/Epic "Reconcile Dispense": Not filled Medication Status per Profile Review: No issues per profile review Patient/provider appropriate for outreach? Yes Patient identified by name and Outreach to patient: Left Voicemail/message for return call What was primary intervention? No intervention Sent/Responded to [employer] What was primary intervention? Remind patient to cotton picking machine operator or fill Benedicto Tao CPhT Value Based Care Pharmacy Team Allergies As of Date: 01/20/2025 Noted Allergy Reaction IODINATED CONTRAST MEDIA 12/15/2013 9 - Itching Date Reviewed: 10/28/2024 Reviewed by: Nabil Kim APRN.MANAGER [place] - Fully Assessed Reason for Visit: Allied [...] powder, diclofenac sodium powder, gabapentin powder, lidocaine CORRECTION powder in cream base (CPD) Apply 1-2 g to affected area four times a day as needed. Baclofen2%;%;hmifdkjgcx17%;lidocaine6%. Per Altaf Metz MD (orthopedics). - gabapentin [...] [M1*03/30/2024 Encounter Status:Closed by BENEDICTO TAO on 01/20/25[facility] 01-11-2025 NoteHNO ID: [id number] Author: ESTRELLA SOLITARIO CPhT Service: ? Author Type: Trade Manager Type: Progress Notes Filed: 01/11/2025 12:13 Note Text: Patient is identified through a medication adherence outreach initiative based on pharmacy claims data from: [employer] Medication Adherence Category: Statins First Review Attribution [...] was primary intervention? No intervention Sent/Responded to [place] What was primary intervention? Remind patient to cotton picking machine operator or fill Questionable attribution, Med NOT prescribed by [facility] provider, but Have [facility]CP [facility]25 History of Present illness Narrative* Estrella Solitario CPhT - 01/11/2025 11:53 AM EDT Patient is identified through a medication adherence outreach initiative based on pharmacy claims data from: [employer] Medication Adherence Category: Statins First Review Attribution [...] was primary intervention? No intervention Sent/Responded to [employer] What was primary intervention? Remind patient to cotton picking machine operator or fill Questionable attribution, Med NOT prescribed by [facility] provider, but Have [facility] PCP Estrella Solitario CPhT Value Based Care Pharmacy Team documented in this encounterK[facility]07-30-2025 NotePatient Outreach (PHPOHE) TARIK DUNHAM ([id number]) 1950 F Date Time Provider Department 01/11/25 GARO STEELE PHPOHE During your visit today, we recorded the following information about you: Estrella Solitario CPhT 01/11/2025 12:13 PM Signed Patient is identified through a medication adherence outreach initiative based on pharmacy claims data from: [employer] Medication Adherence Category: Statins First Review Attribution [...] was primary intervention? No intervention Sent/Responded to SETVIt What was primary intervention? Remind patient to cotton picking machine operator or fill Questionable attribution, Med NOT prescribed by [facility] provider, but Have [facility] PCP Estrella Solitario CPhT Value Based Care Pharmacy Team Allergies As of Date: 01/11/2025 Noted Allergy Reaction IODINATED CONTRAST MEDIA 12/15/2013 9 - Itching Date Reviewed: 10/28/2024 Reviewed by: Nabil Kim APRN.MANAGER [place] - Fully Assessed Reason for Visit: Allied [...] powder, diclofenac sodium powder, gabapentin powder, lidocaine CORRECTION powder in cream base (CPD) Apply 1-2 g to affected area four times a day as needed. Baclofen2%;qklkikmmgf49%;bkxukngjrf60%;lidocaine6%. Per Altaf Metz MD (orthopedics). - gabapentin [...] [M1*03/30/2024 Encounter Status:Closed by ESTRELLA SOLITARIO on 01/11/25[facility] 01-03-2025 Evaluation note* Diagnosis Onset Date Resolution [...] of left hand acute March 28 1:37pm [facility] Work Phone: 1(224) 488-419107-18-2025 Procedure note [facility] Speech Pathology [address] [place] [address] Modified Barium Swallow Study MR#: [id number] Acct: [id number] Name: TARIK DNUHAM Rep #:[id number] : 1950 74 From: Sherrell Du, [facility]-PILING CUTTER Modified Barium Swallow Patient Information Study Date: [...] Status Active ST Patient: Active Contact Information [facility] Speech Therapy:: Sherrell Black M.A. CCC-PILING CUTTER? Speech-Language Pathologist?? [facility] [address] [place] [address]? [email or web address] [phone] 12/30/24 0843 RENATO Nelson-PILING CUTTER> Date/Time Sherrell Black M.A., CCC-PILING CUTTER Co-Signature Required for all Medicare patients Date/Time Co-Signature CC: ~ [facility]06-30-2025 Discharge summary Author Anel Blanco [facility] Note Date/Time December 12, 2024 7:00 pm [facility] Physical Therapy [facility] [address] [place] [address] / REHABILITATION SERVICES DISCHARGE SUMMARY MR#: [id number] Acct: [id number] Name: TARIK DUNHAM Rep #: [id number] : 1950 74 From: Anel Vines Referring [...] please feel free to call me at [phone]. Thank you for the referral of thispatient. Sincerely, WATSON Mensees Balance/Gait/Functional tests Balance/Special Test Scores Functional Gait Assessment Score: 19 % Disability: 36.6700 Lower Extremity Functional Score: 36 Improvement % Improvement: 0 <Electronically signed by Anel Blanco MPT> 12/12/24 1052 CC: Dr. Garo Steele MD ~ Signed [facility] Work Phone: 1(414) 753-636306-30-2025 Discharge summary [facility] Physical Therapy [address] [place] [address] / REHABILITATION SERVICES DISCHARGE SUMMARY MR#: [id number] Acct: [id number] Name: TARIK DUNHAM JAGDISH Rep #: [id number] : 1950 74 From: Anel Blacno MP T Referring Dr.: Dr. Garo Steele [...] Information Discharge Comments: DC PT back to d/ciro sentence: If there are questions or concerns regarding this patient's physical therapy, please feel free to call me at [phone]. Thank you for the referral of thispatient. Sincerely, Anel Blanco, MPT Balance/Gait/Functional tests Balance/Special Test Scores Functional Gait Assessment Score: 19 % Disability: 36.6700 Lower Extremity Functional Score: 36 Improvement % Improvement: 0 12/12/24 1052 CC: Dr. Garo Steele MD ~ Signed [facility]06-27-2025 Consult note Author Fátima Colin [facility] Note Date/Time December 09, 2024 3:10 pm [facility] Medical Records Department [address] [place] [address] Anesthesia Postop Eval II 12/09/24 1510 MR#: [id number] Acct: [id number] Name: TARIK DUNHAM Rep #:[id number] : 1950 74 From: Fátima Colin CRNA PCP: Dr. Garo Steele MD Status:R EG JIMC Y Race: C Location: [place] [address]- Anesthesia Postop Eval I Sum Postop Eval Completion status Anesthesia document: Postop Eval 1 completed: Yes Anesthesia Postop Eval I Summary Anesthesia Postop Eval I Summary: Anesthesia Postop Eval I: Assessment Summary Airway patent Yes 12/09/24 12:15 JAVA SUPPORT ENGINEER.CSIR Spontaneous unlabored Yes 12/09/24 12:15 JAVA SUPPORT ENGINEER.CSIR respirations Mental status nausea No 12/09/24 12:15 JAVA SUPPORT ENGINEER.CSIR Vomiting No 12/09/24 12:15 JAVA SUPPORT ENGINEER.CSIR Anesthesia Postop Eval I: Fluid Summary Crystalloid volume administer 500 12/09/24 12:15 JAVA SUPPORT ENGINEER.CSIR (ml) Colloids volume administered ( ml) Blood Product volume administered (ml) Total IV fluid infused 500 12/09/24 12:15 JAVA SUPPORT ENGINEER.CSIR Anesthesia Postop Eval I: Summary Notes Anesthesia Complication No 12/09/24 12:15 JAVA SUPPORT ENGINEER.CSIR Anesthesia Complication Comment: Post-operative progress note Anesthesia: Postop Eval II Evaluation Mental status: Awake Pain Level: 0 nausea: No Vomiting: No 12/09/24 1510 <Electronically signed by Fátima lay CRNA> Date _ Fátima Colin CRNA Cosigner Signature: Date CC: ~ Signed [facility] Work Phone: 1(928) 544-207506-27-2025 Consult note [facility] Medical Records Department [address] [place] [address] Anesthesia Postop Eval II 12/09/24 1510 MR#: [id number] Acct: [id number] Name: TARIK DUNHAM Rep #:[id number] : 1950 74 From: Fátima Colin JAVA SUPPORT ENGINEER PCP: Dr. Garo Steele MD Status:R EG SDC Y Race: C Location: [place] [address] Anesthesia Postop Eval I Sum Postop Eval Completion status Anesthesia document: Postop Eval 1 completed: Yes Anesthesia Postop Eval I Summary Anesthesia Postop Eval I Summary: Anesthesia Postop Eval I: Assessment Summary Airway patent Yes 12/09/24 12:15 JAVA SUPPORT ENGINEER.CSIR Spontaneous unlabored Yes 12/09/24 12:15 JAVA SUPPORT ENGINEER.CSIR respirations Mental status nausea No 12/09/24 12:15 JAVA SUPPORT ENGINEER.CSIR Vomiting No 12/09/24 12:15 JAVA SUPPORT ENGINEER.CSIR Anesthesia Postop Eval I: Fluid Summary Crystalloid volume administer 500 12/09/24 12:15 JAVA SUPPORT ENGINEER.CSIR (ml) Colloids volume administered ( ml) Blood Product volume administered (ml) Total IV fluid infused 500 12/09/24 12:15 JAVA SUPPORT ENGINEER.CSIR Anesthesia Postop Eval I: Summary Notes Anesthesia Complication No 12/09/24 12:15 JAVA SUPPORT ENGINEER.CSIR Anesthesia Complication Comment: Post-operative progress note Anesthesia: Postop Eval II Evaluation Mental status: Awake Pain Level: 0 nausea: No Vomiting: No 12/09/24 1510 a JAVA SUPPORT ENGINEER> Date _ Fátima Colin JAVA SUPPORT ENGINEER Cosigner Signature: Date CC: ~ Signed [facility]06-27-2025 Consult note Author Fátima Colin [facility] Note Date/Time December 09, 2024 12:4 7[facility] Medical Records Department [address] [place] [address] Anesthesia Postop Eval I 12/09/24 1215 MR#: [id number] Acct: [id number] Name: TARIK DUNHAM Rep #:[id number] : 1950 74 From: Fátima Colin CRNA PCP: Dr. Garo Steele MD Status:R [facility] Y Race: C Location: [place] [address] Anesthesia: Postop Eval I Current Vital Signs Temperature: 98.1 F Pulse Rate: 79 Blood Pressure: 100/78 Respiratory Rate: 20 Pulse Ox: 98 Assessment Airway patent: Yes Spontaneous unlabored respirations: Yes nausea: No Vomiting: No Anesthesia Complication: No Fluid Hydration Crystalloid volume administer (ml): 500 Total IV fluid infused: 500 Progress Note Anesthesia document: Postop Eval 1 completed: Yes 12/09/241214 <Electronically signed by Fátima lay JAVA SUPPORT ENGINEER> Date _ Fátima Colin JAVA SUPPORT ENGINEER Cosigner Signature: Date CC: ~ Signed [facility] Work Phone: 1(520) 783-229006-27-2025 Consult note Author Aaron Malone [facility] Note Date/Time December 09, 2024 11:3 7am [facility] Medical Records Department [address] [place] [address] Pre-Anesthesia Evaluation 12/09/24 1132 MR#: [id number] Acct: [id number] Name: TARIK DUNHAM Rep #:[id number] : 1950 74 From: Aaron Malone MD PCP: Dr. Garo Steele MD Status:R GERARDO GUEVARA Y Race: C Location: [place] [address] ASA Classification* ASA Classification ASA Classification: 2 [...] Procedure(s): EGD Anesthesia History Anesthesia History - file conversion operator: Anesthesia History - file conversion operator Hx Hospitalization No 12/08/24 09:04 Any Problems [...] sips of water?: No PONV PONV - file conversion operator: PONV - file conversion operator Female Yes 12/08/24 09:04 HX of Motion [...] 12/09/24 11:02 Respiratory Assessment Respiratory Assessment - file conversion operator: Respiratory Tract Infection Hx - file conversion operator Hx Respiratory Tract Infection No 12/08/24 09:04 STOP Sleep Apnea STOP Sleep Apnea - file conversion operator: STOP Sleep Apnea - file conversion operator Hx Hypertension No 12/08/24 09:04 Hx Sleep [...] 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 - file conversion operator: Tobacco Use History - file conversion operator Tobacco Use Smoking Status Never smoker 12/08/24 09:04 Hx Tobacco Use No 12/08/24 09:04 Years Smoking Packs Smoked per Day Smoking Cessation Date was within the last 15 years Hx Smoking Cessation Date Hx Smoking Cessation Counseling Hematologic Medial History Hematologic Hx - file conversion operator: 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 12/09/24 3837 <Electronically signed by Aaron mcdonnell MD> Date _ Aaron Malone MD Cosigner Signature: Date CC: ~ Signed [facility] Work Phone: 1([phone]) 877-508306-27-2025 History and physical note Author Gomez Friend [facility] Note Date/Time December 09, 2024 11:0 6am [facility] Medical Records Department [address] [place] [address] History & Physical Exam 12/09/24 1103 MR#: [id number] Acct: [id number] Name: TARIK DUNHAM Rep #:[id number] : 1950 74 From: Gomez Reynoso DO PCP: Dr. Garo Steele MD Status:[facility] Location: [place] [address] HPI - General General Date of Admission: [...] to the office today for establishment with [facility] regarding concerns for difficulty swallowing. She [...] * office FU 1 wk after endoscopy [facility] Medical History Tinnitus Wears glasses Cancer High [...] to the office today for establishment with [facility] regarding concerns for difficulty swallowing. She [...] Garo Steele MD; Gomez Reynoso DO~ Signed [facility] Work Phone: 1(920) 191-563206-27-2025 Consult note [facility] Medical Records Department [address] [place] [address] Anesthesia Postop Eval I 12/09/24 1215 MR#: [id number] Acct: [id number] Name: TARIK DUNHAM Rep #:[id number] : 1950 74 From: Fátima Colin CRNA PCP: Dr. Garo Steele MD Status:R GERARDO [facility] Y Race: C Location: [place] [address] Anesthesia: Postop Eval I Current Vital Signs Temperature: 98.1 F Pulse Rate: 79 Blood Pressure: 100/78 Respiratory Rate: 20 Pulse Ox: 98 Assessment Airway patent: Yes Spontaneous unlabored respirations: Yes nausea: No Vomiting: No Anesthesia Complication: No Fluid Hydration Crystalloid volume administer (ml): 500 Total IV fluid infused: 500 Progress Note Anesthesia document: Postop Eval 1 completed: Yes 12/09/24 1215 a JAVA SUPPORT ENGINEER> Date _ Fátima Sirca JAVA SUPPORT ENGINEER Cosigner Signature: Date CC: ~ Signed [facility]06-27-2025 Evaluation note* Diagnosis Onset Date Resolution Status [...] left hand acute March 14, 2025 5:59am [facility] Work Phone: [phone]) [phone] Evaluation note* Diagnosis Onset Date Resolution Status Admit Date Chest pain acute December 09 10:26am Globus sensation acute November 10:26am Lymphadenopathy of left cervical region acute December 09, 2024 10:26am Difficulty swallowing chronic Christopher e 2024 10:26am 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 Garo Steele MD Status:R [facility] Patient Name: Tarik Dunham Procedure Date: 12/09/2024 [...] pathology results. Procedure Code(s): --- Professional --- 63219, Esophagogastroduodenoscopy, flexible, transoral; with insertion of guide wire followed by passage of dilator(s) through esophagus over guide wire 10163, 59,51, Esophagogastroduodenoscopy, flexible, transoral; with biopsy, single or multiple CPT copyright 2021 [employer]. All rights reserved. The codes documented in this report are preliminary and upon computer language coder review may be revised to meet current compliance requirements. Gomez Reynoso DO 12/09/2024 12:11:06 PM This report has been signed electronically. Number of Addenda: 0 Note Initiated On: 12/09/2024 11:41 AM 12/09/24 1211 Date _ Gomez Reynoso DO Cosigner Signature: Date (if indicated) CC: Dr. Garo Steele MD; Gomez Reynoso DO ~ Date Dictated: 12/09/24 1141 Date Transcribed: Community Health Education Coordinator: RF Signed [facility]06-27-2025 Procedure note [facility] Medical Records Department [address] [place] [address] Operative Report - CC Letter MR#: [id number] Acct: [id number] Name: TARIK DUNHAM Rep #:[id number] : 1950 74 From: Gomez Reynoso DO PCP: Dr. Garo Steele MD Status:R [facility] 12/09/2024 Garo Steele [address] [place] [address] Re : Upper GI endoscopy procedure for [...] ~ Date Dictated: 12/09/24 1141 Date Transcribed: Community Health Education Coordinator: RF Signed [facility]06-27-2025 Consult note [facility] Medical Records Department [address] [place] [address] Pre-Anesthesia Evaluation 12/09/24 1132 MR#: [id number] Acct: [id number] Name: TARIK DUNHAM Rep #:[id number] : 1950 74 From: Aaron Malone MD PCP: Dr. Garo Steele MD Status:R GERARDO MOCiro Y Race: C Location: [place] [address]1 ASA Classification* ASA Classification ASA Classification: 2 [...] Procedure(s): EGD Anesthesia History Anesthesia History - file conversion operator: Anesthesia History - file conversion operator Hx Hospitalization No 12/08/24 09:04 Any Problems [...] sips of water?: No PONV PONV - file conversion operator: PONV - file conversion operator Female Yes 12/08/24 09:04 HX of Motion [...] 12/09/24 11:02 Respiratory Assessment Respiratory Assessment - file conversion operator: Respiratory Tract Infection Hx - file conversion operator Hx Respiratory Tract Infection No 12/08/24 09:04 STOP Sleep Apnea STOP Sleep Apnea - file conversion operator: STOP Sleep Apnea - file conversion operator Hx Hypertension No 12/08/24 09:04 Hx Sleep [...] 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 - file conversion operator: Tobacco Use History - file conversion operator Tobacco Use Smoking Status Never smoker 12/08/24 09:04 Hx Tobacco Use No 12/08/24 09:04 Years Smoking Packs Smoked per Day Smoking Cessation Date was within the last 15 years Hx Smoking Cessation Date Hx Smoking Cessation Counseling Hematologic Medial History Hematologic Hx - file conversion operator: 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 Garo Steele MD Status:R EG [facility] Location: [place] [address] HPI - General General Date of Admission: [...] to the office today for establishment with [facility] regarding concerns for difficulty swallowing. She [...] * office FU 1 wk after endoscopy [facility] Medical History Tinnitus Wears glasses Cancer High [...] to the office today for establishment with [facility] regarding concerns for difficulty swallowing. She [...] applicable): CC: Dr. Garo Steele MD; Gomez Reynoso, ~ Signed [facility]06-27-2025 [facility] Medical Records Department [address] [place] [id number] History Physical Exam 12/09/24 1103 MR#: [id number] Acct: [id number] Name: TARIK DUNHAM Rep #: [id number] : 1950 74 From: Gomez Reynoso DO PCP: Dr. Garo Steele MD Status:[facility] Location: [place] [address] HPI - General General Date of Admission: [...] body habitus Orientation: alert and oriented [facility] normal to inspection Ears: hearing grossly [...] to the office today for establishment with [facility] regarding concerns for difficulty swallowing. She [...] stuck" at the lowe (more content not included)...[facility]06-02-2025 Evaluation note* Diagnosis Onset Date Resolution Status Admit Date Hyperlipidemia chronic November 14, 2024 8:03am Difficulty swallowing acute Nov 8:35am Globus sensation acute November 8:35am Throat clearing acute November 14, 2024 8:35am Chest pain acute December 09 10:26am Difficulty swallowing acute Nov 10:26am Globus sensation acute November 10:26am Lymphadenopathy of left cerv ical region acute December 09, 2024 10:26am [facility] Work Phone: 1(287) 859-160806-02-2025 Evaluation note* Diagnosis Onset Date Resolution Status [...] Dec 1:07pm Throat clearing chronic December 1:07pm [facility] [employer] Work Phone: 1(630) 126-557706-02-2025 Evaluation note* Diagnosis Onset Date Resolution Status [...] 8:04am Throat clearing chronic January 232024 8:04am [facility] [facility] Work Phone: 1(533) 662-808405-16-2025 NoteHNO ID: [id number] Author: NABIL KIM APRN.MANAGER [place] Service: ? 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 Pt. s/p R breast biopsy on 10/24/15. Dx DCIS. She underwent b/l nipple sparing mastectomy with implant reconstruction. Right sentinel LN biopsy (Neg.) on 01/09/16. No complications. She was not followed by an oncologist after surgery. Pt. has been followed by plastics for implants. Pt. was living in [place]. +family history of breast cancer: Mother in early 40's Maternal aunt I'm have never seen an oncologist. I moved back to [place]. I had my implants changed maybe three [...] pt. - Will have records scanned into [employer]. - Continue follow up with plastics and PCP for routine care. - Follow up in one year. - Pt. aware to call office with any questions/concerns. The patient indicates understanding of these issues and agrees with the plan. 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 Pt. s/p R breast biopsy on 10/24/15. Dx DCIS. She underwent b/l nipple sparing mastectomy with implant reconstruction. Right sentinel LN biopsy (Neg.) on 01/09/16. No complications. She was not followed by an oncologist after surgery. Pt. has been followed by plastics for implants. Pt. was living in [place]. +family history of breast cancer: Mother in early 40's Maternal aunt I'm have never seen an oncologist. I moved back to [place]. I had my implants changed maybe three [...] pt. - Will have records scanned into [employer]. - Continue follow up with plastics and PCP for routine care. - Follow up in one year. - Pt. aware to call office with any questions/concerns. The patient indicates understanding of these issues and agrees with the plan. Nabil Kim APRN.CHRISTIANO documented in this encounterK[facility]05-09-2025 Telephone encounter Note * Telephone Encounter - Nevaeh Parker - 10/21/2024 9:20 AM EDT Scheduled with patient [facility] Work Phone: 1(133) 417-431205-09-2025 Miscellaneous Notes* Telephone Encounter - Landon Chana Scottissa - 10/21/2024 9:20 AM EDT Scheduled with [...] they are in. Faxed Pt orders to [employer] at fax # [phone]. Azucena Barahona RN * Telephone Encounter - Veronica Melton LPN - 10/20/2024 9:31 AM EDT Phoned patient and left message to return call and ask to speak to a nurse for results. * Telephone Encounter - Garo Steele MD - 10/19/2024 8:27 PM EDT 1) advanced DJD of left shoulder. She should see her mortgage protection specialist in [facility], Dr. Metz. 2) Referral to PT at [facility] ordered for left hip osteoarthritis. 3) [...] could have an order for PT at [facility] for left hip pain. Patient also asking about further blood work d/t having bilateral breast cancer 5 years ago. She reports that when in [place] she followed with oncology and wandering if she should still be at this time and didn't know if there was any further blood work she should have done to check. Reviewed notes for cholesterol medication. Patient is currently going to work on dietary changes and will let us know if changes her ing. Juani German, MAVIS documented in this encounterKettering [facility]05-09-2025 Telephone encounter Note * Telephone Encounter - Anel Akbar - 10/21/2024 8:59 AM EDT Lvm for patient to return the call Anel Akbar [facility]05-09-2025 Telephone encounter Note* Telephone Encounter - Izabel Ambriz LPN - 10/21/2024 8:33 AM EDT Offer New pt with [place]. Not on an AI. Mamm, surg, path all in scanned documents. Izabel Ambriz LPN [facility]05-09-2025 Telephone encounter Note* Telephone Encounter - Garo Steele MD - 10/21/2024 3:53 AM EDT Schedule with oncology. [facility]05-08-2025 Telephone encounter Note* Telephone Encounter - Azucena [...] they are in. Faxed Pt orders to [employer] at fax # [phone]. Azucena Barahona RN [facility]05-08-2025 Telephone encounter Note* Telephone Encounter - Veronica Melton LPN - 10/20/2024 9:31 AM EDT Phoned patient and left message to return call and ask to speak to a nurse for results. [facility]05-07-2025 Telephone encounter Note* Telephone Encounter - Garo Steele MD - 10/19/2024 8:27 PM EDT 1) advanced DJD of left shoulder. She should see her mortgage protection specialist in [facility], Dr. Metz. 2) Referral to PT at [facility] ordered for left hip osteoarthritis. 3) Offer referral to oncology for breast cancer follow up. ASSESSMENT/PLAN: 1. Unilateral primary osteoarthritis, left hip - ICD9: 715.15, ICD10: M16.12 - CONSULT TO PHYSICAL THERAPY Garo Steele MD [facility]05-06-2025 Telephone encounter Note* Telephone Encounter - Juani German RN - 10/18/2024 12:44 PM EDT Patient calls to request results of recent x-ray. Notified still in process. Patient also asking if she could have an order for PT at [facility] for left hip pain. Patient also asking about further blood work d/t having bilateral breast cancer 5 years ago. She reports that when in [place] she followed with oncology and wandering if she should still be at this time and didn't know if there was any further blood work she should have done to check. Reviewed notes for cholesterol medication. Patient is currently going to work on dietary changes and will let us know if changes her ing. Juani German RN [facility]05-01-2025 History of Present illness Narrative* Juju Yuan, RT(R) - 10/13/2024 12:00 PM EDT Radiology [...] PATIENT PRESENTS WITH AN IMPLANTABLE OR ATTACHED SUPERVISOR HEAVY EQUIPMENT: No RADIOLOGY DEPARTMENT: General X-ray: Exam(s) Completed: Upper Extremity X- Ray(s): Shoulder, AP / TRUE AP / AXILLARY bilateral PERIPHERAL IV DATA: Not applicable SIGNED BY: RT Jcarlos(Curtis) October 13, 2024 11:59 AM documented in this encounterKettering Health [facility]05-01-2025 NoteHNO ID: [id number] Author: JUJU YUAN RT(R) Service: ? Author Type: Heel Sprayer Type: Progress Notes Filed: 10/13/2024 12:17 Note [...] PATIENT PRESENTS WITH AN IMPLANTABLE OR ATTACHED SUPERVISOR HEAVY EQUIPMENT: No RADIOLOGY DEPARTMENT: General X-ray: Exam(s) Completed: Upper Extremity X-Ray(s): Shoulder, AP / TRUE AP / AXILLARY bilateral PERIPHERAL IV DATA: Not applicable SIGNED BY: RT Jcarlos(Curtis) October 13, 2024 11:59 [facility]05-01-2025 NoteHNO ID: [id number] Author: GARO STEELE MD Service: ? Author Type: Physician Type: Progress Notes Filed: 10/13/2024 12:54 Note Text: This note was created using [employer]. Subjective Patient presents with: F/U 6 months [...] also filling a compounded cream from her mortgage protection specialist, Dr. Altaf Metz. She has osteoarthritis of the left hip as well, for which she has been hesitant to have hip replacement. She also had increasing numbness of her right hand digits 1-3. She had chest pains 5 months ago that resolved. Stress test was done at [facility] and was negative. Review of Systems [...] powder, diclofenac sodium powder, gabapentin powder, lidocaine CORRECTION powder in cream base (CPD) Apply 1-2 g to affected area four times a day as needed. Baclofen2%;qwnmxhbevj20%;xwvseqkntt58%;lidocaine6%. Per Altaf Metz MD (orthopedics). No current [...] orthopedic evaluation. She sees Dr. Metz at [facility] in [place]. . 2. Primary osteoarthritis of right knee - ICD9: 715.16, ICD10: M17.11 S/p right total knee. - CELECOXIB 200 MG CAPSULE - COMPLETE BLOOD COUNT 3. Carpal tunnel syndrome on right - ICD9: 354.0, ICD10: G56.01 - Consider orthopedic injection. 4. Neuropathic pain, leg, right - ICD9: 355.8, ICD10: M79.2 - Stable, on long term care pharmacist gabapentin. 5. Hyperlipidemia, unspecified hyperlipidemia type - ICD9: 272.4, ICD10: E78.5 - Control undetermined, due for labs - She expressed hesitance to start a statin medication. - COMPREHENSIVE METABOLIC PANEL - LIPID PANEL, FASTING 6. Unilateral primary osteoarthritis, left hip - ICD9: 715.15, ICD10: M16.12 - Noted outside xray. She was hesitant to have more surgeries. Garo Steele [facility]05-01-2025 History of Present illness Narrative* Garo Steele [...] also filling a compounded cream from her mortgage protection specialist, Dr. Altaf Metz. She has osteoarthritis of the left hip as well, for which she has been hesitant to have hip replacement. She also had increasing numbness of her right hand digits 1-3. She had chest pains 5 months ago that resolved. Stress test was done at [facility] and was negative. Review of Systems [...] powder, diclofenac sodium powder, gabapentin powder, lidocaine CORRECTION powder in cream base (CPD) Apply 1-2 g to affected area four times a day as needed. Baclofen2%;inrtlaaevw33%;rkgoahwume70%;lidocaine6%. Per Altaf Metz MD (orthopedics). No current [...] orthopedic evaluation. She sees Dr. Metz at [facility] in [place]. . 2. Primary osteoarthritis of right knee - ICD9: 715.16, ICD10: M17.11 S/p right total knee. - CELECOXIB 200 MG CAPSULE - COMPLETE BLOOD COUNT 3. Carpal tunnel syndrome on right - ICD9: 354.0, ICD10: G56.01 - Consider orthopedic injection. 4. Neuropathic pain, leg, right - ICD9: 355.8, ICD10: M79.2 - Stable, on care home gabapentin. 5. Hyperlipidemia, unspecified hyperlipidemia type - ICD9: 272.4, ICD10: E78.5 - Control undetermined, due for labs - She expressed hesitance to start a statin medication. - COMPREHENSIVE METABOLIC PANEL - LIPID PANEL, FASTING 6. Unilateral primary osteoarthritis, left hip - ICD9: 715.15, ICD10: M16.12 - Noted outside xray. She was hesitant to have more surgeries. Garo Steele MD documented in this encounterKettering Health [facility]02-10-2025 Telephone encounter Note * Telephone Encounter - Hazel Naylor - 07/25/2024 9:32 AM EST Name of caller: Tarik Contact phone number: [phone] Relationship to Patient: patient Provider: Isaías Practice: Ortho Chief Complaint/Reason for Call: Patient states she is having a dental cleaning tomorrow and needs an abx called in to her pharmacy on file. Please advise. Best time of day caller can be reached: Any Patient advised that office/PCP has 24-48 business hours to return their call: Yes [facility] CenterFvokqs09-82-7681 Miscellaneous Notes* Telephone Encounter - Hazel Naylor - 07/25/2024 9:32 AM EST Name of caller: Tarik Contact phone number: [phone] Relationship to Patient: patient Provider: Isaías Practice: Ortho Chief Complaint/Reason for Call: Patient states she is having a dental cleaning tomorrow and needs an abx called in to her pharmacy on file. Please advise. Best time of day caller can be reached: Any Patient advised that office/PCP has 24-48 business hours to return their call: Yes documented in this encounterSGrant HospitalRdbdim70-38-6054 NoteHNO ID: [id number] Author: ?, ?, ? Service: ? Author [...] Population Health Navigator June 30, 2024 11:01 [facility]01-16-2025 History of Present illness Narrative* Jair Population Health Navigator, Atilio Mai - 06/30/2024 11:00 AM EST POPULATION HEALTH NAVIGATION OUTREACH Action/FYI Updated PCP follow up to include medicare wellness per AWV initiative. Reason for Outreach Care Gap/HCC or Scheduling Wellness Visits Care Gaps due: Medicare Annual Wellness Visit Patient Contacted: Unable or unnecessary to reach patient: Flipped existing appointment Updated appointment notes Navigation Signature: Atilio Sergei Jair [facility] Health Navigremington June 30, 2024 11:01 AM Electronically signed by Jair [facility] Mirada SimoneAtilio Sergei at 06/30/2024 11:01 AM EST documented in this encounterKettering Health [facility]01-16-2025 NotePatient Outreach (NETNAV) TARIK DUNHAM ([id number]) 1950 F Date Time Provider Department 06/30/24 ATILIO TRACEY NETNAV During your visit today, we recorded the following information about you: Jair [employer] YolanderemingtonAtilio 06/30/2024 11:01 AM Signed POPULATION HEALTH NAVIGATION OUTREACH Action/FYI Updated PCP follow up to include medicare wellness per AWV initiative. Reason for Outreach Care Gap/HCC or Scheduling Wellness Visits Care Gaps due: Medicare Annual Wellness Visit Patient Contacted: Unable or unnecessary to reach patient: Flipped existing appointment Updated appointment notes Navigation Signature: Atilio Sergei Jair [facility] [employer]ada Navigator June 30, 2024 11:01 AM Allergies [...] 12/29/2022 Hyperlipidemia [E78.5] 07/01/2023 Encounter Status:Closed by [facility] NAVIGATORATILIO on 06/30/24[facility]11-03-2024 History of Present illness Narrative * Garo [...] - ECG COMPLETE normal. - I contacted [facility], and recommended patient [...] MD (Ophthalmology) Isidro Wong OD (Optometry) Abner Hermoisllo MD (Plastic Reconstructive Surgery) [facility] Dermatology. Medical/Family history review Reviewed [...] deferred at this time. documented in this encounterKettering Health Springfield11-01-2024 Instructions* Patient Instructions* Garo Steele MD - 04/15/2024 4:[address] TED VARGAS FOR STRESS TEST. I WILL CALL [...] review all the medicines you take, even zoyf-cxk-zbqsbtu medicines. As you get older, the way [...] have certain medical conditions. documented in this encounterKettering Health Springfield11-01-2024 History of Present illness Narrative* Beti Freeman MA - 04/15/2024 1:33 PM EDT POPULATION HEALTH NAVIGATION OUTREACH Action/FYI Community Monitoring Navigation Pool/ACM Discuss/Due for: ED Follow Up Fall We are forwarding this patient to Network Navigation to schedule a [facility] 04/12/24 PCP follow-up appointment. Outcome: 1st attempt - Spoke to patient Scheduled ED Follow Up Reason for Outreach Community Monitoring/Network Navigator Pools & Phone Line: [facility] Patient Contacted: Spoke to patient/parent/or legal guardian Patient identified by name and : Yes Community Monitoring/Network Navigator Pools & Phone Line actions taken: Patient scheduled: ER Follow-up 04/15/2024 in [facility] with GARO STEELE - ED Follow Up - PER RNAngel Navigation Signature: Beti Freeman MA April 15, 2024 1:33 PM * Nimo Gaviria RN - 04/15/2024 1:15 PM EDTSummary: ED utilization review per request of payer AC LORETTA RN Patient identified by name and date of . Reason for review or outreach: Chart Review [facility] Utilization REQUESTED ACTION/FYI: Please see ED Utilization summary below: A follow-up appointment is not noted in patient's record. We are forwarding this patient to Network Navigation to schedule a [facility] 04/12/24 PCP follow-up appointment. Thank you Exclusion Criteria - Does not meet exclusion criteria ED DIAGNOSES/REASON(S) FOR ED USE: [facility] 04/12/24 Dx Fall Head Injury (Adult) ED Bruise, Rib ED Shoulder Bruise OTHER FINDINGS/SUMMARY: No rib fractures, negative CXR, Head CT Patient Attributed To: ANATOLY Payer: Hans DAILY Action Taken: Referrals/Routed: Population Health Navigation: Appointment. Router to [facility] [[phone]] Contact made with patient: No, Chart review only. Signature: Nimo KIM,RN,[facility] Floor Covering Printer Management Contract RN [phone] documented in this encounterKettering Health Springfield10-29-2024 History of Present illness Narrative* Adelita Iglesias [...] with this care plan. documented in this encounterKettering Health Springfield10-16-2024 History of Present illness Narrative* Altaf Metz MD - 03/30/2024 11:00 AM EDT [facility] [address] [place] [address] [place] [address] Dept: [phone] Dept 03/30/2024 Chief Complaint Patient presents with [...] 03/30/2024 at 11:05 AM. documented in this [facility]10-14-2024 Telephone encounter Note* Telephone Encounter - Hazel Dayday - 03/28/2024 4:31 PM EDT Name of caller: Tarik Contact phone number: [phone] Relationship to Patient: patient Provider: Isaías Practice: [...] business hours to return their call: Yes [facility] CenterFhrwko43-95-2794 Miscellaneous Notes* Telephone Encounter - Hazel Naylor - 03/28/2024 4:31 PM EDT Name of caller: Tarik Contact phone number: [phone] Relationship to Patient: patient Provider: Isaías Practice: [...] return their call: Yes documented in this encounterSGrant HospitalDoouhg77-77-5099 History of Present illness Narrative* Belkys Adame RN - 02/08/2024 11:30 AM EDT Tarik Dunham was offered and declined a Medical Platform Power Technician for this exam/procedure/test 02/08/2024. Reporting pressure in [...] Surgery A total of 25 minutes of xmvo-kg-eyco time were spent in this encounter, of which >50% was spentin counseling and/or coordination of surgical planning and care. [facility]U [facility] Telephone encounter Note* Telephone Encounter - Jaylan Gan PA-C - 01/18/2024 3:16 PM EDT Done [facility] [id number] Miscellaneous Notes* Telephone Encounter - Jaylan Gan [...] DOS: 03/24/23 R TKA documented in this encounterSGrant HospitalZttfjl60-70-3666 Telephone encounter Note* Telephone Encounter - Erick Wilder LPN - 01/18/2024 3:14 PM EDT Please sign [facility] [id number] Telephone encounter Note* Telephone Encounter - Wily Wynne - 01/18/2024 1:54 PM EDT Pt calling to request prophylactic antibiotic for upcoming dental appt. On wait list, so unsure what date it will be. Confirmed pharmacy. Please advise. DOS: 03/24/23 R TKA [facility] CenterOtqplz70-43-2951 Telephone encounter Note* Telephone Encounter - Brittani Pandey MA - 09/21/2023 8:13 AM EDT 6 month S/P RTKA .Please sign rx if you agree [facility] CenterMpcyhx44-44-9676 Miscellaneous Notes* Telephone Encounter - Brittani Pandey MA - 09/21/2023 8:13 AM EDT 6 month S/P RTKA .Please sign rx if you agree documented in this encounterSGrant HospitalPmgcdh07-43-3240 History of Present illness Narrative* Altaf Metz MD - 07/22/2023 8:45 AM EST [facility] [address] [place] [address] Dept: [phone] Dept 07/22/2023 Chief Complaint Patient presents with [...] 07/22/2023 at 9:18 AM. documented in this [facility]01-17-2024 Discharge summary Author Anel Blanco [facility] July 01, 2023 1:34pm Note Date/Time July 01, 2023 1 :34pm [facility] Physical Therapy [facility] [address] [place] [address] [address] [place] [address] / REHABILITATION SERVICES DISCHARGE SUMMARY MR#: [id number] Acct: [id number] Name: TARIK DUNHAM Rep #: [id number] : 1950 73 From: Anel Vines Referring : Status: REG RCR Insurance: [employer] MEDICARE PPO SELF PAY INSURANCE Discharge Summary D/C summary: It has been my pleasure to treat TARIK DUNHAM referred by ALTAF METZ, with the diagnosis of R TKR 03/24/23 for a total of 22 visit(s). Discharge Date: 07/01/23 Please see the following information for a summary of their discharge status. Subjective Subjective: Pt is leaving for [facility] for a week. She has a gym routine out here that she will start soon. Pt feels good. She knows that she is weak. Ely has pain on the sides of her [...] please feel free to call me at [phone]. Thank you for the referral of thispatient. Sincerely, WATSON Meneses Balance/Gait/Functional tests Balance/Special Test Scores Lower Extremity Functional Score: 66 WOMAC Total Score: 48 WOMAC Percentage: 50.0000 Improvement % Improvement: 80 <Electronically signed by Aenl Blanco MPT> 07/01/23 1334 CC: Dr. Garo Steele MD; ALTAF METZ ~ Signed [facility] Work Phone: [phone]) 621-203101-08-2024 Telephone encounter Note* Telephone Encounter - Erick Wilder LPN - 06/22/2023 10:05 AM EST Please sign for dental appointment tomorrow. [facility] [id number] Miscellaneous Notes* Telephone Encounter - Erick Wilder LPN - 06/22/2023 10:05 AM EST Please sign for dental appointment tomorrow. * Telephone Encounter - Esha Ko - 06/22/2023 9:28 AM EST Pt called stating that she has a dental appt scheduled for tomorrow and needs a refill of her premed antibiotic sent to [id number] - [place], [place] - [address] [facility]. AT [phone] [[id number]]. Please advise. documented in this encounterSGrant HospitalIcuopm89-42-7532 Telephone encounter Note* Telephone Encounter - Esha Ko - 06/22/2023 9:28 AM EST Pt called stating that she has a dental appt scheduled for tomorrow and needs a refill of her premed antibiotic sent to [id number] - [place], [place] - [address]. AT [address] [[phone]]. Please advise. [facility] [id number] Telephone encounter Note* Telephone Encounter - Nguyễn Gregg PA-C - 06/19/2023 2:22 PM EST Thank you [facility] [id number] Miscellaneous Notes* Telephone Encounter - Nguyễn Gregg PA-C - 06/19/2023 2:22 PM EST Thank you * Telephone Encounter - Erick Wilder LPN - 06/19/2023 1:15 PM EST Mychart message sent * Telephone Encounter - Danielle Fuentes - 06/19/2023 11:32 AM EST Name of caller: Tarik Contact phone number: [phone] Relationship to Patient: patient Provider: Isaías Practice: [...] return their call: No documented in this encounterSGrant HospitalVjyqcq53-78-9926 Telephone encounter Note* Telephone Encounter - Erick Wilder LPN - 06/19/2023 1:15 PM EST Mychart message sent [facility] Ihbple44-09-0114 Telephone encounter Note* Telephone Encounter - Danielle Fuentes - 06/19/2023 11:32 AM EST Name of caller: Tarik Contact phone number: [phone] Relationship to Patient: patient Provider: Isaías Practice: [...] business hours to return their call: No [facility] [id number] History of Present illness Narrative* JOANNA Dwyer - 04/29/2023 8:30 AM EST [facility] [address] [place] [address] Dept: [phone] Dept 04/29/2023 Chief Complaint Patient presents with [...] be adequately controlled with anti- inflammatories or xaog-cne-hazrdun medications and requires narcotic pain medication that [...] Altaf Metz M.D. Hip and Knee Reconstruction [facility] 04/29/2023 at 9:07 AM. documented in this [facility]11-15-2023 Miscellaneous Notes* Addendum Note - Nguyễn Gregg [...] 10:06 AM Modules accepted: Orders documented in [facility]11-15-2023 Note* Addendum Note - Nguyễn Gregg PA-C - 04/29/2023 8:30 AM ESTAddended by: COLE GREGG on: 04/29/2023 09:54 AM Modules accepted: Orders [place] [id number] Note* Addendum Note - Nguyễn Gregg PA-C - 04/29/2023 8:30 AM ESTAddended by: COLE GREGG on: 04/29/2023 09:57 AM Modules accepted: Orders [id number] Note* Addendum Note - Nguyễn Gregg PA-C - 04/29/2023 8:30 AM ESTAddended by: COLE GREGG on: 04/29/2023 10:06 AM Modules accepted: Orders [address]Njvhiq53-72-0848 Note* Addendum Note - Nguyễn Gregg PA-C - 04/29/2023 8:30 AM ESTAddended by: COLE GREGG on: 04/29/2023 09:54 AM Modules accepted: Orders [address]Pvnyzn24-69-9747 Note* Addendum Note - Nguyễn Gregg PA-C - 04/29/2023 8:30 AM ESTAddended by: COLE GREGG on: 04/29/2023 09:57 AM Modules accepted: Orders [address]Rggkeg27-41-8214 Note* Addendum Note - Nguyễn Gregg PA-C - 04/29/2023 8:30 AM ESTAddended by: COLE GREGG on: 04/29/2023 10:06 AM Modules accepted: Orders [id number] Note* Addendum Note - Nguyễn Gregg PA-C - 04/29/2023 8:30 AM ESTAddended by: COLE GREGG on: 04/29/2023 09:54 AM Modules accepted: Orders [id number] Note* Addendum Note - Nguyễn Gregg PA-C - 04/29/2023 8:30 AM ESTAddended by: COLE GREGG on: 04/29/2023 09:57 AM Modules accepted: Orders [address]Rrtvse95-88-4570 Note* Addendum Note - Nguyễn Gregg PA-C - 04/29/2023 8:30 AM ESTAddended by: COLE GREGG on: 04/29/2023 10:06 AM Modules accepted: Orders [address]Jgyzrx02-12-9635 Note* Addendum Note - Nguyễn Gregg PA-C - 04/29/2023 8:30 AM ESTAddended by: COLE GREGG on: 04/29/2023 09:54 AM Modules accepted: Orders [address]Zpbgev04-31-6328 Note* Addendum Note - Nguyễn Gregg PA-C - 04/29/2023 8:30 AM ESTAddended by: COLE GREGG on: 04/29/2023 09:57 AM Modules accepted: Orders [address]Prwofz28-94-2495 Note* Addendum Note - Nguyễn Gregg PA-C - 04/29/2023 8:30 AM ESTAddended by: COLE GREGG on: 04/29/2023 10:06 AM Modules accepted: Orders [address]Zbpfzq12-03-6509 Note* Addendum Note - Nguyễn Gregg PA-C - 04/29/2023 8:30 AM ESTAddended by: COLE GREGG on: 04/29/2023 09:54 AM Modules accepted: Orders [address]Exiqom13-77-3867 Note* Addendum Note - Nguyễn Gregg PA-C - 04/29/2023 8:30 AM ESTAddended by: COLE GREGG on: 04/29/2023 09:57 AM Modules accepted: Orders [address] StreetVergnx93-57-8279 Note* Addendum Note - Nguyễn Gregg PA-C - 04/29/2023 8:30 AM ESTAddended by: COLE GREGG on: 04/29/2023 10:06 AM Modules accepted: Orders [id number] Note* Addendum Note - Nguyễn Gregg PA-C - 04/29/2023 8:30 AM ESTAddended by: COLE GREGG on: 04/29/2023 09:54 AM Modules accepted: Orders [id number] Note* Addendum Note - Nguyễn Gregg PA-C - 04/29/2023 8:30 AM ESTAddended by: COLE GREGG on: 04/29/2023 09:57 AM Modules accepted: Orders [id number] Note* Addendum Note - Nguyễn Gregg PA-C - 04/29/2023 8:30 AM ESTAddended by: COLE GREGG on: 04/29/2023 10:06 AM Modules accepted: Orders [address]Ppakuc07-58-1235 Note* Addendum Note - Nguyễn Gregg PA-C - 04/29/2023 8:30 AM ESTAddended by: COLE GREGG on: 04/29/2023 09:54 AM Modules accepted: Orders [address]Tfzpyo21-78-1159 Note* Addendum Note - Nguyễn Gregg PA-C - 04/29/2023 8:30 AM ESTAddended by: COLE GREGG on: 04/29/2023 09:57 AM Modules accepted: Orders [address]Izzasw58-58-2087 Note* Addendum Note - Nguyễn Gregg PA-C - 04/29/2023 8:30 AM ESTAddended by: COLE GREGG on: 04/29/2023 10:06 AM Modules accepted: Orders [facility]Ppzlfd27-75-9509 Telephone encounter Note* Telephone Encounter - Nguyễn Gregg PA-C - 04/13/2023 12:53 PM EDT Order in [facility] [id number] Miscellaneous Notes* Telephone Encounter - Nguyễn Gregg [...] becerra/ [facility] Relationship to Patient: [facility] [phone] Symptoms/Concerns: Vamshi stated that pt is having ongoing pain for over a week now. No sign of infection, but concerned about pain level. Pt sx RIGHT TOTAL KNEE ARTHROPLASTY DOS 03/24 w/ Dr. Metz. Please advise. Provider: Nugyễn Gregg Practice Name: Ortho documented in this [facility]10-30-2023 Telephone encounter Note* Telephone Encounter - Altaf Metz MD - 04/13/2023 12:06 PM EDT Thanks Nguyễn Roman can we get lab order in for CMP, make sure liver function is fine. [facility] Work Phone: [phone] Telephone encounter Note* Telephone Encounter - Ana [...] the use of the Tramadol for pain [facility]DA Relm CollectiblesYgbitf60-70-5416 Telephone encounter Note* Telephone Encounter - Juana Vaca - 04/13/2023 11:01 AM EDT Name of Caller: Vamshi becerra/ [facility] Relationship to Patient: [facility] [phone] Symptoms/Concerns: Vamshi stated that pt is having ongoing pain for over a week now. No sign of infection, but concerned about pain level. Pt sx RIGHT TOTAL KNEE ARTHROPLASTY DOS 03/24 w/ Dr. Metz. Please advise. Provider: Nguyễn Gregg Practice Name: Ortho [facility] [id number] History of Present illness Narrative* JOANNA Dwyer [...] be adequately controlled with anti- inflammatories or sqfz-lxh-zfzqszx medications and requires narcotic pain medication that [...] by agreement and consent. I used the followingTelehealth technology: Audio capability only. Total length of [...] stated that they are currently in the [facility]. If the patient is a minor, permission has been obtained by the parent or guardian for the patient to receive medical care at this visit. documented in this [facility]10-11-2023 History of Present illness Narrative* SIDNEY Ronquillo - 03/25/2023 11:30 AM EDT Images from the original note were not included. Occupational Therapy OCCUPATIONAL THERAPY [facility] Treatment Note Name/MRN: Tarik Dunham ([id number]) Date of : 1950 Age: 73 y.o. Room/Bed: [facility]168/[facility] A Visit #: 1 out of 2 [...] 03/25/23 Therapy Time Individual Co-treatment Time In 947 Time Out 1018 Minutes 30 Timed Code Treatment Minutes: 28 Minutes (adl and ther act) SIDNEY Ronquillo * Michelle Schwarz MD - 03/25/2023 9:28 AM EDT Images from the original note were not included. Hospitalist Progress Note 03/25/[id number]: Please secure chat me on patient care issues. [phone]: Please secure chat [facility] Hospitalist for any issues. Subjective: Admit Date: 03/24/2023 PCP: Garo Steele Room#: B1-168/B1-168 A CHIEF COMPLAINT: Right TKA Interval History: Overall doing well, eating well, ambulating, pain controlled, passing gas. ROS: No fevers, chills, numbness and weakness, headache, chest pain Adult diet Regular @TXJX8NTCARF@ 24HR INTAKE/OUTPUT: Intake/Output Summary (Last 24 hours) [...] Information Primary Emergency Contact: Uvaldo Dunham [address]: [address] [place], [place] [address] [place] [address] Mobile Relation: Spouse Secondary Emergency Contact: HerediaMaria Dolores Address: [address] [place] [address] Mobile Relation: Daughter Michelle Schwarz MD Division of Hospitalist Medicine [facility] PAGER: Epic chat * Le Zhou PTA - 03/25/2023 8:29 AM EDT Images from the original note were not included. PHYSICAL THERAPY [facility] Treatment Note Name/MRN: Tarik Dunham ([id number]) Date of : 1950 Age: 73 y.o. [...] Pt met all acute PT goals. Recommend [facility] PT and Assist PRN. Subjective Patient pleasant [...] original note were not included. PHYSICAL THERAPY [facility] Initial Evaluation Having reviewed the treatment plan and goals for this patient, I certify that the plan of care below is medically necessary and appropriate. Name/MRN: Tarik Dunham ([id number]) Evaluation Date: 03/24/2023 Date of : 1950 [...] yet met acute therapy goals, will rec [facility] PT to promote mobility and safety Diagnosis: [...] Responsibilities: Independent Receives Help From: Family Active Manager Diversity: Yes Prior Level of Function ADL Assistance: [...] of Care supervision is transferred to a [facility] Physical Therapist. Goals and/or treatment plan was established in collaboration with patient/family/other representatives. * Zach Arthur OT - 03/24/2023 3:12 PM EDT Images from the original note were not included. Occupational Therapy OCCUPATIONAL THERAPY [facility] Initial Evaluation Having reviewed the treatment plan and goals for this patient, I certify that the plan of care below is medically necessary and appropriate. Name/MRN: Tarik Dunham ([id number]) Evaluation Date: 03/24/2023 Date of : 1950 [...] address the below. Recommend planned discharge for [facility] OT with assist PRN. Performance Deficits /Impairments: [...] Responsibilities: Independent Receives Help From: None Active Manager Diversity: Yes Prior Level of Function ADL Assistance: [...] of Care supervision is transferred to a [facility] Services Occupational Therapist. Goals and/or treatment plan was established in collaboration with patient/family/other representatives. documented in this [facility]10-11-2023 Miscellaneous Notes* Care Coordination - Unknown Case Management - 03/25/2023 11:30 AM EDT Patient Choice Patient Name: TARIK DUNHAM Date of : 1950 All Providers Sent Referral Name: Home Health Services [facility] Address: [facility] [facility], [address] [place] [address] Name: [facility] At Home Phone: [phone] Address: [address] [place] [address] * Home Care - Beti Murillo RN - 03/25/2023 11:30 AM EDT Met with patient at bedside to advise on choosing another agency as this RN has not received a response yet from [facility]. Patient requesting [facility] for services. Referral to be processed. * Home Care - Beti Murillo RN - 03/25/2023 11:30 AM EDT Start PACC Note Home Health Referral Educated patient and daughter at bedside on Home Care and services available. Patient offered choice of available HHC and agreeable to PT/OT services with [facility] - Home Care. Care Types: [...] is noted as yes - consider a MANAGER LANGUAGE evaluation once the patient returns home. START PATIENT REGISTRATION INFORMATION Order Information Order Signing Physician: No att. providers found Service Ordered RN ?: No Service Ordered PT ?: Yes Service Ordered OT ?: Yes Service Ordered ST ?: No Service Ordered MANAGER LANGUAGE?:No Service Ordered RESTAURANT LINE SERVER?: No Following Physician: Altaf Metz MD Following Physician Overseeing Physician: Altaf Metz MD (Required for Residents only) Agreeable to Follow? Yes Date/Time of Call 03/25/23 11:43 AM, Spoke with: ortho protocol Care Coordination Same Day SOC?: No Primary Care Physician: Garo Steele Primary Care Physician Primary Care Physician Address: [address] [place] [address] Visit Instructions: N/A Service Discharge Location Type: Home with Home Health Care Service Facility Name: N/A Service Floor Facility: N/A Service Room No: N/A Demographics Patient Last Name: Charla Patient First Name: Tarik Language/Communication Barrier: no Service Address: [address] [place] [address] City: [facility] ST: [place] Service ZIP: [address] Service (home) Other phone numbers: Telephone Information: Emergency Contact: Extended Emergency Contact Information Primary Emergency Contact: AnnemarieerniUvaldo Address: [address] [place], [place] [address] [place] [address] Mobile Relation: Spouse Secondary Emergency Contact: Maria Dolores Heredia Address: [address] [place] [address] Mobile Relation: Daughter Admission Information Admit Date: [...] TKA. PT/OT Evals completed, recommending home with [facility]. PACC following. DC orders in and signed. DC today with Ze[facility]. * Home Care - Beti Murillo RN - 03/24/2023 5:59 PM EDT Patient/ Uvaldo in agreement with [facility] pt/ot. Would like referral sent to [facility] to check for acceptance. Referral to [...] No date: Arthritis No date: Cancer (CMS/HCC) ([facility]) Comment: right breast No date: Fractures Comment: [...] seen and thoroughly evaluated by a perioperative site medical director preoperatively and was optimized for surgical intervention. [...] the rotation dialed in appropriately by visualizing Valeria's line. Alignment holes drilled. The femoral four-in-one [...] were then assessed for symmetry with gap quotation checker blocks, in both flexion and extension, [...] constipation discussed with patient. documented in this [facility]SGrant HospitalHbmozr92-93-1589 Note* Care Coordination - Unknown Case Management - 03/25/2023 11:30 AM EDT Patient Choice Patient Name: TARIK DUNHAM Date of : 1950 All Providers Sent Referral Name: [facility] Services [facility] Address: [address] [place] [address], [address] [place] [address] Name: [facility] Phone: [phone] Address: [address] [place] [address] [facility] [id number] Note* Home Care - Beti Murillo RN - 03/25/2023 11:30 AM EDT Met with patient at bedside to advise on choosing another agency as this RN has not received a response yet from [facility]. Patient requesting [facility] for services. Referral to be processed. [facility] CenterRkwanx78-21-8658 Note* Home Care - Beti Murillo RN - 03/25/2023 11:30 AM EDT Start PACC Note Home Health Referral Educated patient and daughter at bedside on Home Care and services available. Patient offered choice of available [facility] and agreeable to PT/OT services with [facility] - Home Care. Care Types: [...] is noted as yes - consider a MANAGER LANGUAGE evaluation once the patient returns home. START PATIENT REGISTRATION INFORMATION Order Information Order Signing Physician: No att. providers found Service Ordered RN ?: No Service Ordered PT ?: Yes Service Ordered OT ?: Yes Service Ordered ST ?: No Service Ordered MANAGER LANGUAGE?:No Service Ordered RESTAURANT LINE SERVER?: No Following Physician: Altaf Metz MD Following Physician Overseeing Physician: Altaf Metz MD (Required for Residents only) Agreeable to Follow? Yes Date/Time of Call 03/25/23 11:43 AM, Spoke with: ortho protocol Care Coordination Same Day SOC?: No Primary Care Physician: Garo Steele Primary Care Physician Primary Care Physician Address: [address] [place] [address] Visit Instructions: N/A Service Discharge Location Type: Home with Home Health Care Service Facility Name: N/A Service Floor Facility: N/A Service Room No: N/A Demographics Patient Last Name: Charla Patient First Name: Tarik Language/Communication Barrier: no Service Address: [address] [place] [address]: [facility] ST: [place] Service ZIP: [address] Service (home) Other phone numbers: Telephone Information: Emergency Contact: Extended Emergency Contact Information Primary Emergency Contact: Uvaldo Dunham Address: [address] [place] [id number] [place] [address] of [place]uk[place]ana Mobile Relation: Spouse Secondary Emergency Contact: Maria Dolores Heredia Address: [facility] Mobile Relation: Daughter Admission Information Admit Date: [...] 1w / B1-168/B1-168 A End PACC Note [facility] CenterKrrwwx53-07-0236 Nurse Note* Mitzy Wilder RN - 03/25/2023 11:06 AM EDT Home going instructions given. Pt is able to teach back total knee precautions, ambit pain pump andfollow-up. Medications delivered to pt prior to dc home. [facility] CenterJotbwk73-61-1925 Nurse Note* Mitzy Wilder RN - 03/25/2023 11:06 AM EDT Home going instructions given. Pt is able to teach back total knee precautions, ambit pain pump andfollow-up. Medications delivered to pt prior to dc home. documented in this [facility]10-11-2023 Note* Nurse Navigation Note - Sherry Garcia RN - 03/25/2023 8:30 AM EDT POD #1 RTKA Patient resting in bed. Daughter at bedside. She is hoping to be discharged this morning. Pain controlled. Instructed patient and daughter on ambit pain pump and incisional dressing. Verbalized understanding. All questions answered at this time. [facility] CenterRoxstp43-59-4623 Note* Care Coordination - Karol Hensley RN - 03/25/2023 7:26 AM EDT Patient on 1W s/p L TKA. PT/OT Evals completed, recommending home with [facility]. PACC following. DC orders in and signed. DC today with [facility]. [facility] CenterBnqmnk78-29-7741 Note* Home Care - Beti Murillo RN - 03/24/2023 5:59 PM EDT Patient/ Uvaldo in agreement with [facility] pt/ot. Would like referral sent to [facility] to check for acceptance. Referral to be sent and will update with response once received. [facility] CenterQvmpot27-40-5829 Consult note* Michelle Schwarz MD - 03/24/2023 [...] Consult: Medical Management HISTORY OF PRESENT ILLNESS: Traik is a 73 y.o. female pmhx below consulted for medical managment postoperative day 0 for Paty. Doing well postoperatively - walked to the [...] Information Primary Emergency Contact: Uvaldo Dunham Address: [facility] [place] [id number] [place] [address] Mobile Relation: Spouse Secondary Emergency Contact: Maria Dolores Heredia Address: [address] Mobile Relation: Daughter -see below for [...] device Full Code Inpatient consult to Internal Medicine--[facility] INTERNAL MEDICINE [facility] Supplement:Breakfast; Fruit Punch Aris (Wound Healing Oral [...] MD Division of Hospitalist Medicine Inpatient Medical Services/[facility] [id number] Consult note* Michelle Schwarz MD - 03/24/2023 5:53 PM EDTAssociated Order(s): IP CONSULT TO INTERNAL MEDICINE Images from the original note were not included. Hospital Medicine Consult Patient - Tarik Dunham, Age - 73 y.o. - 1950 Room Number - @ROOMBEDREFRESH@ Consulting - Altaf Metz MD Primary Care Physician - Garo Steele [facility] # - [id number] Date of Admission - 03/24/2023 6:05 AM [...] Housing Stability: Not on file Family History: @FAMXCO@ REVIEW OF SYSTEMS: 10 point ROS obtained, [...] Information Primary Emergency Contact: Uvaldo Dunham Address: [address] [place], [place] [address] [place] [address] Mobile Relation: Spouse Secondary Emergency Contact: Maria Dolores Heredia Address: [address] Mobile Relation: Daughter -see below for [...] Inpatient consult to Internal Medicine--B INTERNAL MEDICINE [facility] Supplement:Breakfast; Fruit Punch Aris (Wound Healing Oral [...] MD Division of Hospitalist Medicine Inpatient Medical Services/[facility] documented in this [facility]10-10-2023 Note* Nurse Navigation Note - Sherry Garcia RN - 03/24/2023 3:19 PM EDT Front wheeled walker delivered to patient. Primary Caregiver: self If assistance needed, confirmed caregiver ready, willing and able to care for patient at discharge:Yes Confirmed with: Uvaldo [facility] CenterCspdol59-33-2508 History and physical note* Altaf Metz MD [...] All questions were answered. Altaf Metz MD [facility] Medical [facility] Department of Orthopedic Surgery Adult Hip and Knee Reconstruction [facility] [place] Work Phone: [phone] History and physical note* Altaf Metz MD [...] All questions were answered. Altaf Metz MD [facility] Department of Orthopedic Surgery Adult Hip and Knee Reconstruction * JESSICA Lincoln - 03/10/2023 9:30 AM EDT Comprehensive PreSurgical History and Physical ? Name: Tarik Dunham : 1950 (Age-73 y.o.) Date of Service: Pt seen/examined on 03/10/2023 Procedure Information Date/Time: 03/24/23929 Procedure: RIGHT TOTAL KNEE ARTHROPLASTY (Right: Knee) - 60 MIN Location: [address] Operating Room Surgeons: Altaf Metz MD [...] CPAP The patient meets the criteria for [facility] total joint replacement protocol. Total time spent [...] HTN, DM, Asthma/COPD, CAD, CHF, a fib, LA, TIA/CVA, DVT/PE Hx problems with anesthesia? - delayed emergence Dental? - no missing teeth nothing loose or broken no partials or dentures Snore at night? - +bruno using cpap Past Medical History: Past Medical History: No date: Arthritis No date: Cancer (CMS/HCC) ([facility]) Comment: right breast No date: Fractures Comment: [...] Vitals: Vitals Value Taken Time BP 130/53 03/10/2324 Temp 36.3 C (97.4 F) 03/10/23923 Pulse [...] QT Interval 396 QTC Interval 409 P [place] 58 QRS [place] 51 T Wave [place] 39 [place] Interval 152 Impression SINUS RHYTHM No previous ECG available for comparison ECHO and EF:None on file No components found for: "LVEF", "LVEFMODE" Electronically signed by: JESSICA Lincoln Date: 03/10/2023 at 10:30 AM documented in this [facility]10-10-2023 Note* Op Note - Altaf Metz MD [...] seen and thoroughly evaluated by a perioperative site medical director preoperatively and was optimized for surgical intervention. [...] the rotation dialed in appropriately by visualizing Valeria's line. Alignment holes drilled. The femoral four-in-one [...] were then assessed for symmetry with gap quotation checker blocks, in both flexion and extension, [...] patient was transferred to the recovery room. T [facility] [id number] Note* Perioperative Nursing Note - Anel Amaya RN - 03/24/2023 6:32 AM EDT Patient educated on importance of coughing/ deep breathing after surgery to reduce risk of pneumonia. Patient educated on importance of early mobility to reduce the risk of blood clots. Falls prevention information reviewed with patient. Post-operative pain control and ways to prevent constipation discussed with patient. [facility] CenterGhykfj36-28-4203 Hospital course Narrative* Nguyễn Gregg PA-C - 03/23/2023 8:04 AM EDT Images from the original note were not included. [address] [address] Dept: [phone] Discharge Summary Patient Name: Tarik Dunham Date [...] Ok to take today cholecalciferol 50 MCG (1999 UT) capsule Commonly known as: Vitamin D-3 gabapentin 300 MG capsule Commonly known as: Neurontin magnesium (chelated) 100 MG tablet ofloxacin 0.3 % ophthalmic solution Commonly known as: Ocuflox omeprazole [address] capsule Commonly known as: PriLOSEC Notes to patient: Take today Where to Get Your Medications These medications were sent to [facility] [address] [place] [address], [facility] [address] Hours: Thursday to Thursday 10 am to [...] PA-C 03/25/2023 2:54 PM documented in this [facility]10-09-2023 Hospital Discharge instructions* Discharge Instructions* Nguyễn Gregg PA-C - 03/23/2023 8:04 AM EDT Images from the original note were not included. [facility] MAIN OR [address] [place] [id number] Dept: [phone] Altaf Metz Adult Hip and Knee Reconstruction [phone] Total/Partial Knee Discharge Instruction Physical Therapy Physical [...] is made of hard metal and plastic. [place] will create a slight separation of the [...] are taking narcotic pain medicine such as [place], Percocet, Hydrocodone, Oxycodone. Question: How long will [...] Information Primary Emergency Contact: Uvaldo Dunham Address: [address] [place] [address] Mobile Relation: Spouse Secondary Emergency Contact: HerediaMaria Dolores Address: [address] [place] [address] Mobile Relation: Daughter Past Surgical History: Past [...] (140 lb) Mental Status: {SHIMON Patient Mental Status:14321} IV Access: {SHIMON IV Access:60605} Nursing Mobility/ADLs: Walking {TARYN ADL:::"Independent"} Transfer {TARYN ADL:::"Independent"} Bathing {TARYN ADL:::"Independent"} Dressing {TARYN ADL:::"Independent"} Toileting {TARYN ADL:::"Independent"} Feeding {TARYN ADL:::"Independent"} Signals Intelligence Analysis Manager {TARYN ADL:::"Independent"} Med Delivery {yes/no:69633} Wound Care Documentation and Therapy: Wound/Incision 03/24/23 Incision Knee Anterior;Right (Active) Site Assessment Unable to assess 03/25/23 040 Odor None 03/25/23 040 Drainage Amount None 03/25/23 0820 Treatments Ice applied 03/25/23819 Primary Dressing Sterile dressing;Transparent film 03/25/23819 Dressing Status Clean, dry & intact 03/25/23819 Number of days: 1 Elimination: Continence: Bowel: {yes/no:94878} Bladder: {yes/no:91866} Urinary Catheter: {SHIMON Urinary Catheter:99228} Colostomy/Ileostomy/Ileal Conduit: {YES / NO:} Date of Last BM: No intake or output data in the 24 hours ending 03/25/23 1140 I/O last 3 completed shifts: In: 424.2 (6.7 mL/kg) [I.V.:301.2 (4.7 mL/kg); IV Piggyback:123] Out: 100 (1.6 mL/kg) [Blood:100] Weight: 63.5 kg Safety Concerns: {SHIMON Safety Concerns:39104} Impairments/Disabilities: {SHIMON Impairments/Disabilities:04701} Nutrition Therapy: Current Nutrition Therapy: {SHIMON Diet List:43399} Routes of Feeding: {routes of feedin} Liquids: {liquid consistency:74982} Daily Fluid Restriction: {daily fluid restriction:74502} Last Modified Barium Swallow with Video (Video Swallowing Test): {done not done:20802} Treatments at the Time of Hospital Discharge: Respiratory Treatments: Oxygen Therapy: {Therapy; copd oxygen:94336} Ventilator: {SHIMON Ventilator:91648} Rehab Therapies: {GEN THERAPY DISCIPLINE SCAL:5846546} Weight Bearing Status/Restrictions: {POD WEIGHT BEARIN} Other Medical Equipment (for information only, NOT a DME order): {Assistive Devices DME:16601} Other Treatments: Patient's personal belongings (please select all that are sent with patient): {SHIMON Patient Belongings:68031} RN SIGNATURE: {E-signature:85714} CASE MANAGEMENT/SOCIAL WORK SECTION Inpatient Status Date: Readmission Risk Assessment Score: @READMISSIONRISKDETAILS@ Discharging to Facility/ Agency Name: [facility] Address: [address] [place] [address] Dialysis Facility (if applicable) Name: Address: Dialysis Schedule: Phone: Fax: Marine Diver/Transmission Inspector signature: {E-signature:15481} PHYSICIAN SECTION Prognosis: {Rehab Prognosis:34784} Condition at Discharge: {Patient Condition:78852} Rehab Potential (if transferring to Rehab): {Rehab Prognosis:43704} Recommended Labs or Other Treatments After Discharge: Physician Certification: I certify the above information and transfer of Tarik Dunham is necessary for the continuing treatment of the diagnosis listed and that she requires {SHIMON Level of Care:59281}for {greater less than:04230} 30 days. Update Admission H&P: {SHIMON Changes in H&P:51575} PHYSICIAN SIGNATURE: {E-signature:71259} documented in this [facility]09-26-2023 History and physical note* JESSICA Lincoln - 03/10/2023 9:30 AM EDT Comprehensive PreSurgical History and Physical ? Name: Tarik Dunham : 1950 (Age-73 y.o.) Date of Service: Pt seen/examined on 03/10/2023 Procedure Information Date/Time: 03/24/23929 Procedure: RIGHT TOTAL KNEE ARTHROPLASTY (Right: Knee) - 60 MIN Location: [address] Operating Room Surgeons: Altaf Metz MD [...] CPAP The patient meets the criteria for [facility] total joint replacement protocol. Total time spent [...] HTN, DM, Asthma/COPD, CAD, CHF, a fib, LA, TIA/CVA, DVT/PE Hx problems with anesthesia? - delayed emergence Dental? - no missing teeth nothing loose or broken no partials or dentures Snore at night? - +bruno using cpap Past Medical History: Past Medical History: No date: Arthritis No date: Cancer (CMS/HCC) ([facility]) Comment: right breast No date: Fractures Comment: [...] Vitals: Vitals Value Taken Time BP 130/53 03/10/2324 Temp 36.3 C (97.4 F) 03/10/23923 Pulse 65 03/10/23923 Resp 16 03/10/23 09 SpO2 99 % 03/10/23923 BP 130/53 Pulse [...] QT Interval 396 QTC Interval 409 P [place] 58 QRS [place] 51 T Wave [place] 39 [place] Interval 152 Impression SINUS RHYTHM No previous ECG available for comparison ECHO and EF:None on file No components found for: "LVEF", "LVEFMODE" Electronically signed by: JESSICA Lincoln Date: 03/10/2023 at 10:30 AM [facility] [id number] History of Present illness Narrative* Maria Dolores Palacios - 02/06/2023 2:30 PM EDT Patient offered a medical credit and collections analyst for sensitive exam. Pt declined [facility] History of Present illness Narrative* Belkys Adame RN - 02/06/2023 1:45 PM EDT Reporting a sharp shooting pain that started 3 weeks ago, occurs with coughing, breathing, movementthat has left her with contact tenderness since. Reports sweating and shaking during the sharp painepisodes. * Pati Melinda Boles, SALESPERSON CORSETS-MANAGER [place] - 02/06/2023 1:45 PM EDT PLASTIC AND [...] Surgery A total of 30 minutes of yhta-rj-vxwf time were spent in this encounter, of which >50% was spentin counseling and/or coordination of surgical planning and care. documented in this encounterOSU [facility] History of Present illness Narrative* Altaf Metz MD - 01/28/2023 8:45 AM EDT Images from the original note were not included. [facility] [address] [place] [address] Dept: [phone] Dept 01/28/2023 Chief Complaint Patient presents with [...] the following: A pre-surgical evaluation by an insole reinforcer will be arranged. Pre-operative laboratory tests as well as EKG which will be checked by the insole reinforcer. Will make arrangements with the operating room for proper time and staffing. Arrangements with the implant company to make sure the proper implants are made available. Social service arrangements for the patient, to include physical therapy at home versus in the outpatient setting, depending on patient preference. The chance for intermediate facility discharge is also plausible pending post-op [...] INSTRUCTIONS Procedure: Right [place] - [address]52 Time: 1 hour(s) Diagnosis: 1. Primary osteoarthritis [...] 01/28/2023 at 8:55 AM. documented in this [facility]07-17-2023 Instructions* Patient Instructions* Garo Steele MD - 12/29/2022 12:46 PM EDT VACCINES DUE: TETANUS BOOSTER. SHINGRIX SERIES. Have you ever planned for future healthcare decisions with a power of tax attorney, living will, or advance directives? Yes. Have you shared those records with your doctor? No Please bring a copy. Fasting blood work. [facility] History of Present illness Narrative* Garo Steele MD - 12/29/2022 12:12 PM EDT This note was created using [employer]. Subjective Tarik Dunham is a 72 year old female. She had progressive right knee pain and was seriously considering knee replacement. She was in the process of deciding where and by whom to have knee surgery. She had seen [facility], [facility], and will see [facility] for opinions. She had been taking more [...] all Concerns with sexual function:Not at all [place] anxious, stressed, angry, irritable, lonely, isolated, or [...] Bean for ophthalmology, Dr. Abner Nova at [facility] for breast cancer follow up and surgeries; Dr. Mattson for pain management as needed, and Dr. Henri Amaya for local orthopedics; Dr. Altaf Metz, [facility]. Dr. Clay Jean, preventive cardiology. Dr. [...] pharmacy - Depression screening documented in this [facility]06-07-2023 History of Present illness Narrative* Altaf Metz MD - 11/19/2022 11:00 AM EDT Images from the original note were not included. [facility] [address] [place] [address] Dept: [phone] Dept 11/19/2022 Chief Complaint Patient presents with [...] 11/19/2022 at 11:49 AM. documented in this [facility]01-13-2023 Instructions* Patient Instructions* Garo Steele MD - 06/27/2022 2:30 PM EST REQUEST VACCINE RECORDS. documented in this encounterK[facility]01-13-2023 History of Present illness Narrative* Garo Steele MD - 06/27/2022 2:29 PM EST This note was created using NoteWriter. Subjective Patient presents with: Establish Care: Dr. Foreman/ Dr. Leong Tarik Dunham is a 72 year old female here to establish. She had no concern other than her gabapentin. She had been on 300 mg BID for neuropathic right leg pain from previous PCP. When she ran out, she requested a refill from her mortgage protection specialist Dr. Amaya, who prescribed 100 mg BID. 100 mgBID was not enough to control her symptoms. She sees Dr. Ranjan Bean for dermatology; Dr. Pamella Bean for ophthalmology, Dr. Abner Nova at [facility] for breast cancer follow up and surgeries; [...] HISTORY Procedure Laterality Date BREAST RECONSTRUCTION 01/2022 [facility] CARPAL TUNNEL 2018 right COLONOSCOPY FLX [...] BREAST RECONSTRUCTION Bilateral 12/2016 Dr. Gastelum in [place] TONSILLECTOMY PRIMARY/SECONDARY <AGE 10 Tonsillectomy VAG HYST 250 GM/< W/RMVL TUBE&/OVARY 12/22/2013 [facility]/BSO WRIST RIGHT OP SURGERY Right 2018 ORIF Wrist fracture FAMILY HISTORY Problem Relation Age of Onset Cancer Mother breast Heart Father LA Osteoporosis Sister Osteopenia Osteoporosis Sister Osteopenia Hypertension [...] - ICD9: V10.3, ICD10: Z85.3 Followed [facility]. Garo Steele MD documented in this encounterK[facility]12-27-2022 Miscellaneous Notes* Telephone Encounter - Rosa Vallejo APRN.MANAGER [place] - 06/10/2022 2:01 PM EST Noted and agree Rosa Vallejo APRN.CHRISTIANO * Telephone Encounter - Azucena Barahona RN [...] go to the ER. documented in this encounterK[facility]11-28-2022 History of Present illness Narrative* Cielo Mercado - 05/12/2022 2:00 PM EST 05/12/22 walk in to Buy mona valettas mona 50239 sz 14 bk x2 mona 21320 sz [address] Patient [address] Dr. Hermosillo wanted her in a push up bra. She scheduled an appointment for her next visit with Dr. Hermosillo In August 2022. She said she wanted 3 more Valettas. Billed as post surgical.SM documented in this encounterSt[facility]11-[facility] History of Present illness Narrative* Valentina Manuel PA-C - 05/12/2022 12:00 PM EST Plastic and reconstructive surgery progress note Pt was seen and evaluated by the PAC and Dr. Skoracki Reason for Visit History of bilateral mastectomies [...] months A total of 15 minutes of tgtj-gt-ltzr time were spent in this encounter, of which >50% was spentin counseling and/or coordination of surgical planning and care. [facility] in [facility] History of Present illness Narrative* Cielo Mercado - 02/24/2022 1:30 PM EDT NOTE: VERIFY NAME, , ADDRESS FOR CLIENT(UPDATE CATAPULT) Bra Prosthesis Note Tarik Dunham is being seen today at [facility] by Cielo Mercado for a Breast Issue. [...] breast prosthesis billed in the past in [place]. Did you instruct client on don/doffing procedures: Yes Did you instruct client of care for pros/bras: Yes Did you instruct client of warranty/storage of pros/bras: Yes Purchased: mona 78499 sz 14 wh x1 mona 58551 14 black x1 Product ordered: mona valetta nude sz 14 style 54315 not pd ship DID YOU RELEASE CARE INSTRUCTIONS Yes documented in this encounterSt. [facility]09-12-2022 History of Present illness Narrative* DUSTY Hadley - 02/24/2022 12:45 PM EDT DRAIN LOG DRAIN # 2 Date Output 02/21 13 mL 9/10 20 mL /11 20 mL /12 10 mL Am only DRAIN # 3 Date Output 9/ 22 mL 9/10 25 mL 9/11 25 mL /12 10 mL Am only DRAIN # Date [...] assessment. A total of 15 minutes of fgdx-ui-jkfw time were spent in this encounter, of which >50% was spentin counseling and/or coordination of surgical planning and care. documented in this encounterOSU [facility]09-12-2022 Miscellaneous Notes* Addendum Note - Valentina Manuel PA-C - 02/24/2022 12:45 PM EDTAddended by: VALENTINA MANUEL on: 02/24/2022 04:04 PM Modules accepted: Orders documented in this encounterOSU [facility]09-12-2022 Note* Addendum Note - Valentina Manuel PA-C - 02/24/2022 12:45 PM EDTAddended by: VALENTINA MANUEL on: 02/24/2022 04:04 PM Modules accepted: Orders [facility] History of Present illness Narrative* DUSTY Hadley - 02/21/2022 11:00 AM EDT DRAIN LOG DRAIN # 1 Date Output 9/6 3 mL 9/7 0 mL 9/8 0 [...] drains in place. documented in this encounterOSU [facility]08-30-2022 Miscellaneous Notes* Op Note - Abner [...] and excision of scar tissue DRAINS: One 10-Honduran Mason drain to each breast and one 10-Honduran Mason drain to right axilla ANESTHESIA: General [...] underneath the bilateral pectoralis major muscles. A 10-Honduran Mason drain was then placed bilaterally underneath [...] trialed various sizers and felt that the Butler Memory Gel Xtra breast implant with a reference number SMHX-470 with a total fill volume of 470 cc and gel smooth round implants gave the best width to projection ratio as desired by the patient. We therefore chose the following implants for the left breast: serial number [id number] and for the right breast an implant with serial number [id number]. The implants were prepared in the standard fashion with a triple antibiotic wash. At this stage, we also prepared the MTF Flex HD bioprosthetic mesh, item number [id number]. For the right breast, it was a piece with serial number [id number] and for the left breast a serial number [id number]. The mesh was meshed in a Yoseph [...] - 02/11/2022 8:57 AM EDT Tarik Dunham ([id number]) PRE OPERATIVE DIAGNOSIS Pre-op exam [Z01.818] POST [...] Fellow ANESTHESIOLOGIST Anesthesiologist: Agnieszka De Anda MD Manager Trainee Assisting: Fazal Chavis MD SURGICAL STAFF Accreditation Specialist: Jackie Sue RN; Ashwin Ohler, RN Physician Market Development Analyst: Valentina Manuel PA-C Scrub Person: Marcela Amato Resident Assisting: Zhen Park MD COMPLICATIONS None ESTIMATED BLOOD LOSS Minimal SPECIMENS Cytology specimen sent ID Type Source Tests Collected by Time Destination 1 : Left breast implant for gross Permanent SUPERVISOR HEAVY EQUIPMENT SURG PATH REQUEST Abner Hermosillo MD 02/11/2022 0743 2 : Right breast implant for gross Permanent SUPERVISOR HEAVY EQUIPMENT SURG PATH REQUEST Abner Hermosillo MD 02/11/2022 0748 3 : Left Breast Capsule Permanent SURG PATH SURG PATH REQUEST Abner Hermosillo MD 02/11/2022 0804 4 : Right Breast Capsule Permanent SURG PATH SURG PATH REQUEST Abner Hermosillo MD 02/11/2022 0824 Valentina Manuel PA-C February 11, 2022 8:57 AM documented in this encounterSt. [facility]08-30-2022 Note* Op Note - Abner Hermosillo MD [...] and excision of scar tissue DRAINS: One 10-Honduran Mason drain to each breast and one 10-Honduran Mason drain to right axilla ANESTHESIA: General [...] underneath the bilateral pectoralis major muscles. A 10-Honduran Mason drain was then placed bilaterally underneath [...] trialed various sizers and felt that the Butler Memory Gel Xtra breast implant with a reference number [id number]-470 with a total fill volume of 470 cc and gel smooth round implants gave the best width to projection ratio as desired by the patient. We therefore chose the following implants for the left breast: serial number [id number] and for the right breast an implant with serial number [id number]. The implants were prepared in the standard fashion with a triple antibiotic wash. At this stage, we also prepared the MTF Flex HD bioprosthetic mesh, item number [id number]. For the right breast, it was a piece with serial number [id number] and for the left breast a serial number [id number]. The mesh was meshed in a Yoseph [...] correct at the close of the procedure. [facility] Work Phone: 1(868) 500-543208-30-2022 Nurse Surgical operation note* Danielle Victoria RN - 02/11/2022 12:58 PM EDT 1243- [facility]. Vital signs taken and stable. Patient given drink and snacks. Family called to bedside. Patient assessed. 1400- Discharge instructions, anesthesia precautions and prescriptions explained to patient and family/friend. All questions answered. 1407- IV removed 1413- Patient meets ASU discharge criteria and discharged per MD order to home. Patient taken by wheelchair by Donato ALIGNING INSPECTOR to awaiting car. All belongings gathered with patient. Family/friend to drivepatient home and care for patient 24 hours post-op. [facility]08[facility] Nurse Note* Danielle Victoria RN - 02/11/2022 12:58 PM EDT 1243- [facility] [place]. Vital signs taken and stable. Patient given drink and snacks. Family called to bedside. Patient assessed. 1400- Discharge instructions, anesthesia precautions and prescriptions explained to patient and family/friend. All questions answered. 1407- IV removed 1413- Patient meets ASU discharge criteria and discharged per MD order to home. Patient taken by wheelchair by Donato ALIGNING INSPECTOR to awaiting car. All belongings gathered with patient. Family/friend to drivepatient home and care for patient 24 hours post-op. * Herminia Conrad RN - 02/11/2022 10:25 AM EDT 1001: Patient arrives in [facility] PACU from OR via gurney with side rails up x2 with HOB >30 degrees, accompanied by Manager Trainee Assisting: Fazal Chavis MD and team. Patient [...] prominence in ASU Report received from ASU letter stamping machine operator notified of start time at 0737 via [...] h/o seizures or stroke. documented in this encounterOSU [facility]08-30-2022 Nurse Surgical operation note* Herminia Conrad RN - 02/11/2022 10:25 AM EDT 1001: Patient arrives in [facility] PACU from OR via gurney with side rails up x2 with HOB >30 degrees, accompanied by Manager Trainee Assisting: Fazal Chavis MD and team. Patient [...] Anda came to bedside to see patient. [facility] Nurse Surgical operation note* Jackie Sue RN - 02/11/2022 9:58 AM EDT Mepilex dressing applied to lower bony prominence in ASU Report received from ASU letter stamping machine operator notified of start time at 0737 via [facility] text/page system Family updated 0900 Yellow sheet sent to PACU Notified PACU charge of patient arrival time. Patient transported to PACU by anesthesia, side rails up x2 Report given to PACU, no further questions Existing implants explanted 02/11 at 0800. [facility] Discharge instructions* Discharge Instructions* Valentina Manuel PA-C - 02/11/2022 8:59 AM EDT Home Care After Breast Surgery The following instructions will help you care for yourself, or be cared for upon your return home today. These are guidelines for your care right after surgery only. Diet: Start your regular diet today Activity: No sign letterer such as vacuuming, or heavy cleaning No [...] above 101 degrees. Call Plastic Surgery at [phone] to confirm your follow-up appointment on 02/21/2022. If you have questions or problems, call us. If you are unable to reach your doctor call: Ambulatory Surgery Unit at The hospital cold water machine operator at . Ask for the resident water commissioner for your doctor. - [facility] documented in this encounterOS[facility]08-30-2022 Note* Brief Op Note - Valentina Manuel PA-C - 02/11/2022 8:57 AM EDT Tarik Dunham ([id number]) PRE OPERATIVE DIAGNOSIS Pre-op exam [Z01.818] POST [...] Fellow ANESTHESIOLOGIST Anesthesiologist: Agnieszka De Anda MD Manager Trainee Assisting: Fazal Chavis MD SURGICAL STAFF Accreditation Specialist: Jackie Sue RN; Ashwin Stevenson RN Physician Market Development Analyst: Valentina Manuel PA-C Scrub Person: Marcela Amato Resident Assisting: Zhen Park MD COMPLICATIONS None ESTIMATED BLOOD LOSS Minimal SPECIMENS Cytology specimen sent ID Type Source Tests Collected by Time Destination 1 : Left breast implant for gross Permanent SUPERVISOR HEAVY EQUIPMENT SURG PATH REQUEST Abner Hermosillo MD 02/11/2022 0743 2 : Right breast implant for gross Permanent SUPERVISOR HEAVY EQUIPMENT SURG PATH REQUEST Abner Hermosillo MD 02/11/2022 0748 3 : Left Breast Capsule Permanent SURG PATH SURG PATH REQUEST Abner Hermosillo MD 02/11/2022 0804 4 : Right Breast Capsule Permanent SURG PATH SURG PATH REQUEST Abner Hermosillo MD 02/11/2022 0824 Valentina Manuel PA-C February 11, 2022 8:[address] [facility] Attending History and physical note* Valentina [...] 5 mg melatonin, ashwaganda 125 mg, and L-sealztah028 mg ascorbic acid 500 MG tablet Take [...] swollen legs [x] obesity (BMI>25) [] acute LA [] CHF <1 month [] sepsis (<1 [...] thrombosis [] Factor V Leiden [] Prothrombin 09619P [] Elevated serum homocysteine [] Positive Lupus [...] consent form. Implants ordered Pre-op orders completed. [facility] History and physical note* Valentina Manuel PA-C [...] 5 mg melatonin, ashwaganda 125 mg, and L-ksyxkovd510 mg ascorbic acid 500 MG tablet Take [...] swollen legs [x] obesity (BMI>25) [] acute LA [] CHF <1 month [] sepsis (<1 [...] thrombosis [] Factor V Leiden [] Prothrombin 95338E [] Elevated serum homocysteine [] Positive Lupus [...] ordered Pre-op orders completed. documented in this encounterSt. [facility]08-30-2022 Nurse Surgical operation note* Danielle Victoria RN - 02/11/2022 5:38 AM EDT Pt DENIES h/o chemotherapy and radiation. Pt HAS metal in right shoulder and right big toe. Pt DENIES h/o seizures or stroke. [facility]08[facility] History and physical note* Valentina Manuel PA-C - 01/27/2022 12:00 PM EDT Plastic and Reconstructive Surgery H&P HPI: Ms. Dunhma is a 71 y.o. female. H/o right [...] 5 mg melatonin, ashwaganda 125 mg, and L-vwvjcdeb330 mg ascorbic acid 500 MG tablet Take [...] swollen legs [x] obesity (BMI>25) [] acute LA [] CHF <1 month [] sepsis (<1 [...] thrombosis [] Factor V Leiden [] Prothrombin 93306H [] Elevated serum homocysteine [] Positive Lupus [...] consent form. Implants ordered Pre-op orders completed. [facility] Work Phone: [phone]) 611-982008-15-2022 History and physical note* Valentina Manuel PA-C [...] 5 mg melatonin, ashwaganda 125 mg, and L-rxbukgkx357 mg ascorbic acid 500 MG tablet Take [...] swollen legs [x] obesity (BMI>25) [] acute LA [] CHF <1 month [] sepsis (<1 [...] thrombosis [] Factor V Leiden [] Prothrombin [id number] [] Elevated serum homocysteine [] Positive Lupus [...] ordered Pre-op orders completed. documented in this encounterSt. [facility] of [facility]08-12-[facility]22 Instructions* Patient Instructions* Belkys Adame RN - [...] your procedure. *Please call the office at [phone] if any cold, flu like or other [...] 3. DO NOT wear lotion, makeup, nail kinyarwanda, contact lens, or perfume/cologne. 4. DO NOT [...] op - No repetitive arm movements, including sign letterer, for 4 weeks - No bouncing activities [...] the Plastics and Reconstructive Surgery office at [phone] promptly with any of the following concerns: [...] the take-back program closest to you at https://takebackday.KiteBit.gov under the COLLECTION SITE SENIOR TALENT MANAGEMENT CONSULTANT tab. Never dispose of un-needed medications down [...] arm, or other area Date Last Reviewed: 10/14/201519998281-8639 [employer]. [address] [place] [address], [place] [address]. All rights reserved. This information is not intended as a substitute for professional medical care. Always follow yourhealthcare professional's instructions. documented in this encounterSt. John of God Hospital04-22-2022 History of Present illness Narrative* Valentina Manuel [...] pre-op A total of 30 minutes of pzvf-[id number] time were spent in this encounter, of which >50% was spentin counseling and/or coordination of surgical planning and care. documented in this encounterSt. John of God Hospital04-06-2021 NotePatient Outreach (COVAFW) TARIK DUNHAM ([id number]) 1950 F Date Time Provider Department 09/18/20 MELANI WALLS During your visit today, we recorded the following information about you: Allergies As of Date: 09/18/2020 (No Known Allergies) Date Reviewed: 12/09/2019 Reviewed by: Lela Damon RN - Fully Assessed Order(s):SARS-COVID VACCINE 1ST DOSE APPT [[id number]] Order #: [id number] FUTURE SARS-COVID VACCINE 1ST DOSE APPT [[id number]] Order #: [id number] Prescriptions as of 09/18/2020 Sig: ATORVASTATIN 10 [...] bilateral mastectomy [Z90.13] 11/18/2018 Encounter Status:Closed by Kadriana, PRODUSER on 09/21/20[facility] [id number] NoteHNO ID: [id number] Author: Azucena Vieira APRN Service: ? Author Type: Nurse Practitioner Type: Progress Notes Filed: 02/13/2020 1:52 PM Note Text: Results reviewed by Dr. Arauz. Azucena Vieira APRNHonorhealth Scottsdale Shea Medical [id number] History of Past illness Narrative* Problem Noted Date Resolved Date Screening for breast cancer 11/18/20180 11/2018 documented as of this encounter (statuses as of 06/16/2022) [facility] History of Past illness Narrative* Problem Noted Date Resolved Date Screening for breast cancer 11/18/2018 060 11/2018 Carpal tunnel syndrome, right 07/23/2017 Radiculopathy, [...] of this encounter (statuses as of 06/27/2022) [facility] History of Past illness Narrative* Problem Noted [...] of this encounter (statuses as of 12/29/2022) [facility] Author Elzbieta Roblero [facility] Note Date/Time March 14, 2025 8:30am [facility] Medical Records Department [address] [place] [address] Anesthesia Postop Eval I 03/14/25 0812 MR#: [id number] Acct: [id number] Name: TARIK DUNHAM Rep #:[id number] : 1950 75 From: Elzbieta Roblero CRNA PCP: Dr. Garo Steele MD Status:R EG SD Y Race: C Location: [place] [address] Anesthesia: Postop Eval I Current Vital Signs [...] Anesthesia document: Postop Eval 1 completed: Yes 03/14/25 08 <Electronically signed by Elzbieta TEE> Date _ Elzbieta Roblero JAVA SUPPORT ENGINEER Cosigner Signature: Date CC: ~ Signed [facility] Work Phone: Consult note Author Aaron Malone [facility] Note Date/Time March 14, 2025 9:31am [facility] Medical Records Department [address] [place] [address] Anesthesia Postop Eval II 03/14/25912 MR#: [id number] Acct: [id number] Name: TARIK DUNHAM Rep #:[id number] : 1950 75 From: Aaron Malone MD PCP: Dr. Garo Steele MD Status:R EG [facility] Y Race: C Location: [place] [address] Anesthesia Postop Eval I Sum Postop Eval Completion status Anesthesia document: Postop Eval 1 completed: Yes Anesthesia Postop Eval I Summary Anesthesia Postop Eval I Summary: Anesthesia Postop Eval I: Assessment Summary Airway patent Yes 03/14/25 08:14 JAVA SUPPORT [email or web address].HBARR Spontaneous unlabored Yes 03/14/25 08:14 JAVA SUPPORT ENGINEER.HBARR respirations Mental status Awake 03/14/25 08:14 JAVA SUPPORT ENGINEER.HBARR nausea No 03/14/25 08:14 JAVA SUPPORT ENGINEER.HBARR Vomiting No 03/14/25 08:14 JAVA SUPPORT ENGINEER.HBARR Anesthesia Postop Eval I: Fluid Summary Crystalloid volume administer 500 03/14/25 08:14 JAVA SUPPORT ENGINEER.HBARR (ml) Colloids volume administered ( ml) Blood Product volume administered (ml) Total IV fluid infused 500 03/14/25 08:14 JAVA SUPPORT ENGINEER.HBARR Anesthesia Postop Eval I: Summary Notes Anesthesia Complication No 03/14/25 08:14 JAVA SUPPORT ENGINEER.HBARR Anesthesia Complication Comment: Post-operative progress note Anesthesia: Postop Eval II Evaluation Mental status: Awake and Calm Pain Level: 1 nausea: No Vomiting: No Complications Anesthesia Complication: No 03/14/25 0913 <Electronically signed by Aaron mcdonnell MD> Date _ Aaron Malone MD Cosigner Signature: Date CC: ~ Signed [facility] Work Phone: Evaluation noteNo assessment information available [facility] Work Phone: Evaluation note* Diagnosis H/O bilateral mastectomy- Primary Acquired absence of breast and nipple H/O bilateral mastectomy- Primary Acquired absence of breast and nipple H/O bilateral mastectomy Acquired absence of breast and nipple [facility] Diagnosis Onset Date Resolution Status Hypothyroidism acute Osteoarthritis acute [facility] Work Phone: Evaluation note* Diagnosis Onset Date Resolution Status Hypothyroidism acute Osteoarthritis acute Encounter to establish care noneactive Pre-op evaluation noneactive [facility] Work Phone: Evaluation note* Diagnosis Onset Date Resolution Status Hypothyroidism acute Osteoarthritis acute Encounter to establish care noneactive Pre-op evaluation noneactive Hypothyroidism acute Lymphadenopathy of left cervical region acute Multiple thyroid nodules acu te [facility] Work Phone: Evaluation note* Diagnosis H/O bilateral mastectomy- Primary Acquired absence of breast and nipple Pre-op exam- Primary Preoperative examination, unspecified Pre-op exam Preoperative examination, unspecified [facility] H/O bilateral mastectomy- Primary Acquired absence of breast and nipple Pre-op exam Preoperative examination, unspecified Acute post-operative pain [facility] Diagnosis Encounter for follow-up- Primary [facility] Diagnosis H/O bilateral mastectomy- Primary Acquired absence of breast and nipple [facility]* Diagnosis H/O bilateral mastectomy- Primary Acquired absence of breast and nipple documented [facility] this [facility]* Diagnosis Onset Date Resolution Status Hypothyroidism acute Lymphadenopathy of left cervical region acute Multiple thyroid nodules acu te [facility] Work Phone: Evaluation note* Diagnosis H/O bilateral mastectomy- Primary Acquired absence of breast and nipple documented in this encounter [facility] note* Diagnosis Hyperlipidemia, unspecified hyperlipidemia type- Primary Neuropathic pain, leg, right Osteopenia of multiple sites Mild memory disturbance Memory loss History of breast cancer Personal history of malignant neoplasm of breast documented [facility] this [facility]* Diagnosis Right knee pain, unspecified chronicity- Primary documented in this encounter [facility] note* Diagnosis Onset Date Resolution Status Hyperlipidemia chronic [facility] Work Phone: Evaluation note* Diagnosis Primary osteoarthritis of right knee- Primary [facility]* Diagnosis Medicare annual wellness visit, subsequent- Primary Routine general medical examination at a health care facility Neuropathic pain, leg, right Other low back pain Primary osteoarthritis of right knee Primary localized osteoarthrosis, lower leg Hyperlipidemia, unspecified hyperlipidemia type History of breast cancer Personal history of malignant neoplasm of breast Multiple thyroid nodules Nontoxic multinodular goiter documented in this encounter [facility]* Diagnosis Primary osteoarthritis of right knee documented in this encounter [facility] note* Diagnosis Right knee pain, unspecified chronicity [facility]* Diagnosis H/O bilateral mastectomy Acquired absence of breast and nipple History of right breast cancer documented [facility] this [facility]* Diagnosis H/O bilateral mastectomy Acquired absence of breast and nipple History of right breast cancer documented [facility] this [facility]* Diagnosis H/O bilateral mastectomy- Primary Acquired absence of breast and nipple History of right breast cancer H/O bilateral mastectomy Acquired absence of breast and nipple History of right breast cancer H/O bilateral mastectomy Acquired absence of breast and nipple History of right breast cancer [facility] Diagnosis Primary osteoarthritis of right knee- Primary S/P total knee arthroplasty, left [facility]* Diagnosis S/P total knee arthroplasty, left [facility]* Diagnosis S/P total knee arthroplasty, left- Primary [facility]* Diagnosis S/P total knee arthroplasty, right- Primary [facility]* Diagnosis S/P total knee arthroplasty, right- Primary Primary osteoarthritis of right knee S/P total knee arthroplasty, left [facility]* Diagnosis S/P total knee arthroplasty, right [facility]* Diagnosis Status post total right knee replacement- Primary [facility]* Diagnosis Primary osteoarthritis of right knee S/P total knee arthroplasty, right [facility]* Diagnosis Status post total right knee replacement [facility]* Diagnosis Hyperlipidemia, unspecified Family history of ischemic heart disease and other diseases of the circulatory system documented in this encounter [facility] Work Phone: Evaluation note* Diagnosis Neuroma- Primary Other benign neoplasm of connective and other soft tissue of unspecified site Neuroma Other benign neoplasm of connective and other soft tissue of unspecified site [facility]* Diagnosis S/P total knee arthroplasty, right- Primary Left hip pain Pain in joint, pelvic region and thigh [facility]* Diagnosis Left hip pain Pain in joint, pelvic region and thigh documented [facility] this [facility]* Diagnosis S/P total knee arthroplasty, right documented [facility] this [facility]* Diagnosis Left hip pain- Primary Pain in joint, pelvic region and thigh Left hip pain Pain in joint, pelvic region and thigh [facility]* Diagnosis Pain- Primary Generalized pain Headache, unspecified headache type documented in this encounter [facility]* Diagnosis Medicare annual wellness visit, subsequent- Primary Routine general medical examination at a health care facility Contusion of left chest wall, subsequent encounter Contusion of left shoulder, subsequent encounter Closed head injury, subsequent encounter Fall, subsequent encounter Chest pain, unspecified type Screening for depression Encounter for screening examination for other mental health and behavioral disorders documented in this encounter [facility] note* Diagnosis Left hip pain- Primary Pain in joint, pelvic region and thigh Left hip pain Pain in joint, pelvic region and thigh documented in this encounter [facility] note* Diagnosis Chronic pain of both shoulders- Primary Pain in joint, shoulder region Primary osteoarthritis of right knee Primary localized osteoarthrosis, lower leg Carpal tunnel syndrome on right Carpal tunnel syndrome Neuropathic pain, leg, right Hyperlipidemia, unspecified hyperlipidemia type Unilateral primary osteoarthritis, left hip documented in this encounter [facility] note* Diagnosis Chronic pain of both shoulders Pain in joint, shoulder region documented in this encounter [facility] note* Diagnosis Unilateral primary osteoarthritis, left hip- Primary H/O bilateral mastectomy Acquired absence of breast and nipple documented in this encounter [facility] note* Diagnosis 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 H/O bilateral mastectomy Acquired absence of breast and nipple documented in this encounter [facility] note* Diagnosis Onset Date Resolution Status Admit Date Hyperlipidemia chronic November 14, 2024 8:03am [facility] Work Phone: Evaluation note* Diagnosis Onset Date Resolution Status Admit Date Hyperlipidemia chronic November 14, 2024 8:03am Difficulty swallowing acute Nov 8:35am Globus sensation acute November 8:35am Throat clearing acute November 14, 2024 8:35am [facility] Work Phone: Evaluation note* Diagnosis Left hip pain- Primary Pain in joint, pelvic region and thigh Arthritis of left hip documented in this encounter [facility] note* Diagnosis Left hip pain Pain in joint, pelvic region and thigh documented in this encounter [facility] Discharge instructionsAdditional Instructions Operations Performed: Mucous Cyst [...] document) At your earliest convenience, please call [phone] to confirm/schedule a follow-up appointment with Us in in clinic on [place]. When to call your surgeon: If any [...] or if you have any questions, call [phone] Work Phone: Instructions* Attachments The following attachments cannot be sent through Care Everywhere. * Active Range of Motion Exercises, Knees and Ankles (Italian) * Exercise Band Exercises for the Knee and Ankle (Italian) * Standing Exercises (Italian) documented in this [facility] HealthProgress note Author Jimmie Newell [facility] Note Date/Time March 14, 2025 7:35am [facility] Medical Records Department [address] [place] [address] Progress Note - Surgery 03/14/25 0734 MR#: [id number] Acct: [id number] Name: TARIK DUNHAM Rep #:[id number] : 1950 75 From: Jimmie Newell MD PCP: Dr. Garo Steele MD Status:R [facility] Location: [place] [address] Subjective Subjective Patient has some baseline collateral [...] Cosigner Signature (if applicable): CC: ~ Signed [facility] Work Phone: Progress note Author Jimmie Newell [facility] Note Date/Time March 24, 2025 1 0:42am [facility]alt System [facility] [address], [address] [place] [address] OFFICE VISIT Date of Service: 03/24/25 MR#: [id number] Acct: [id number] Name: TARIK DUNHAM Rep #: [id number] : 1950 Provider: Dr. Víctor Newell MD Age/Sex: 75/F Location: [facility] Status: Signed Intake [...] pathology findings. The case was examined at [facility] by Dr. Butler (#[id number]) and the following diagnosis was rendered. A. [...] cyst of digit of left hand M67.442 [facility] Medical History History of Kolb's esophagus Back [...] Date (if applicable) Jessy Roman CC: ~ [facility] [employer] Work Phone: [facility] for referral (narrative)* Outpatient Procedure (Routine) - New Request Specialty Diagnoses / Procedures Referred By Contac t Referred To Contact [facility] Diagnoses Chest pain, unspecified type Procedures ECG COMPLETE ECG ROUTINE ECG W/LEAST 12 LDS W/I&R Garo Steele MD [address] [place] [address] [facility] [address] [place] [address] Referral ID Status Reason Start Date Expiration Date Visits Requested Visits Authorized [id number] New Request Auto-Generat ed Referral 04/15/2024 04/15/2025 1 1 [facility]No reason for referral information availableSt[facility] Work Phone: Reason for visit Narrative* Auth/Cert Specialty Diagnoses / Procedures Referred By Corinne vines Referred To Contact Diagnoses Pre-op exam Pre-op exam [Z01.818] Procedures [place] REMOVAL INTACT BREAST IMPLANT [place] AALIYAH-IMPLANT CAPSULECTOMY BREAST COMPLETE [place] INSERTION BREAST IMPLANT SAME DAY OF MASTECTOMY [place] IMPLNT BIO IMPLNT FOR SOFT TISSUE REINFORCEMENT REMOVAL BREAST IMPLANT INTACT CAPSULECTOMY BREAST INSERTION BREAST PROSTHESIS IMMEDIATE IMPLANTATION BIOLOGIC IMPLANT FOR SOFT TISSUE REINFORCEMENT ADD-ON PX Abner Hermosillo MD [address] [facility] [address] [place] [address] [facility] [address] [place] [address] Referral ID Status Reason Start Date Expiration Date Visits Re quested Visits Authorized [id number] [address] [facility] Narrative* Diagnostic Procedure Only (Routine) - Closed Specialty Diagnoses / Procedures Referred By Corinne vines Referred To Contact XR IMAGING Diagnoses Chronic pain of both shoulders Procedures XR SHOULDER GENERAL 3V OR MORE AP/TRUE AP/OTHER RIGHT RADEX SHOULDER COMPLETE MINIMUM 2 VIEWS Garo Steele MD [address] [place] [address] Phone: tel: fax: XR IMAGING [id number] Referral ID Status Reason Start Date Expiration Date V isits Requested Visits Authorized [id number] Closed Auto-Generate d Referral 10/13/2024 11/12/2025 1 1 [facility] Summary Purpose Family History No Family History [...] Response Recorded Date/ Time Advance Directives Yes December 15 12:38pm Living Will Yes December 15, 2013 1 2:38pm Power of Fleet Assistant Yes December 15, 2013 12:38pm Advance Directive Response Recorded Date/ Time Advance Directives Yes October 16, 2021 11:19am Living Will Yes October 16, 2021 11 :19am Power of Fleet Assistant Yes October 16, 2021 11:19am Advance Directive Response Recorded Date/ Time Advance Directives Yes October 16, 2021 10:19am Living Will Yes October 16, 2021 10 :19am Power of Fleet Assistant Yes October 16, 2021 10:19am Latest Code [...] Documents on File Type Date Recorded Patient Sex Worker Or Escort Expl 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 Yes October 16, 2021 11:19am Advance Directives Yes October 16, 2021 11:19am Advance Directive Response Recorded Date/ Time Living Will Yes October 16, 2021 11 :19am Do you have a Healthcare Power of Fleet Assistant? Yes October 16, 2021 11:19am Do you have a Healthcare Power of Fleet Assistant? Yes December 08, 2024 9:04am Advance Directives Yes October 16, 2021 11:19am Advance Directive Response Recorded Date/ Time Do you have a Healthcare Power of Fleet Assistant? Yes December 08, 2024 9:04am Do you have a Healthcare Power of Fleet Assistant? Yes February 28, 2025 8:58am Advance Directives Yes October 16, 2021 11:19am Advance Directive Response Recorded Date/ Time Do you have a Healthcare Power of Fleet Assistant? Yes February 28, 2025 8:58am Advance Directives Yes October 16, 2021 11:19am Chief Complaint and Reason for Visit Chief Complaint LABWORK LBP Chief Complaint LABWORK LBP RT ARM EDEMA Chief Complaint LABWORK LBP RT ARM EDEMA CUT FILE CLERK, EST. CARE, PT NEEDS NPP Reason for Visit Hypothyroidism Osteoarthritis Chief Complaint LABWORK LBP RT ARM EDEMA CUT FILE CLERK, EST. CARE, PT NEEDS NPP Localized swelling, mass and lump, neck Reason for Visit Hypothyroidism Osteoarthritis Encounter to establish care Pre-op evaluation Chief Complaint LABWORK LBP RT ARM EDEMA CUT FILE CLERK, EST. CARE, PT NEEDS NPP Localized swelling, mass and lump, neck Thyroid Nodule/US 11/25/[address] [facility] Reason for Visit Hypothyroidism Osteoarthritis Encounter to establish care Pre-op evaluation Hypothyroidism Lymphadenopathy of left cervical region Multiple thyroid nodules Chief Complaint LBP RT ARM EDEMA CUT FILE CLERK, EST. CARE, PT NEEDS NPP Localized swelling, mass and lump, neck Thyroid Nodule/US 11/25/[address] [facility] LEFT NECK MASS Reason for Visit Hypothyroidism Osteoarthritis Encounter to establish care Pre-op evaluation Hypothyroidism Lymphadenopathy of left cervical region Multiple thyroid nodules Chief Complaint Thyroid Nodule/US [facility] LEFT NECK MASS INJ EXT MUSC,FASC,TEND [...] 10 :26am 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 J brittany [...] :26am 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 Edwige brittany 2024 1:07pm Difficulty swallowing January 03, [...] digit of left hand Septem 2024 5:59am Chief Complaint Admit Date OA L HIP, RX HERE December 12, 2024 10:0 0am DIFFICULTY SWALLOWING December 29, 2024 12 :51pm Test Result January 03, 2025 1:07 pm 1 M January 23, 2025 8: 04am CYST ON [...] of left hand Septem abbey 2024 5:59am Mucous cyst of digit of [...] of left hand Septem abbey 2024 5:59am Mucous cyst of digit of left hand Octobe r 2024 10:13am Mucous cyst of digit of left hand Octobe r 2024 10:01am Mucous cyst of digit of left hand Octobe r 2024 1:37pm Reason for Referral Specialty Diagnoses / Procedures Referred By Contac t Referred To Contact Diagnoses Pre-op exam Valentina Manuel PA-C [address] [place] [phone] Referral ID Status Reason Start Date Expiration Date V isits Requested Visits Authorized [id number] New Request 01/27/2022 02/21/2023 1 1 Specialty Diagnoses / Procedures Referred By Contac t Referred To Contact Diagnoses Pre-op exam Procedures NO MECHANICAL DVT PROPHYLAXIS Valentina Manuel PA-C [address] [place] [address] Referral ID Status Reason Start Date Expiration Date V isits Requested Visits Authorized [id number] New Request 02/11/2022 03/08/2023 1 1 Specialty Diagnoses / Procedures Referred By Contac t Referred To Contact Diagnoses Pre-op exam Procedures LOW RISK - NO PHARMACOLOGICAL DVT PROPHYLAXIS Valentina Manuel PA-C [address] [place] [phone] Referral ID Status Reason Start Date Expiration Date V isits Requested Visits Authorized [id number] New Request 02/11/2022 03/08/2023 1 1 Specialty Diagnoses / Procedures Referred By Contac t Referred To Contact Diagnoses Pre-op exam Procedures DVT/VTE RISK ASSESSMENT Valentina Manuel PA-C [address] [place] [address] Referral ID Status Reason Start Date Expiration Date V isits Requested Visits Authorized [id number] New Request 02/11/2022 03/08/2023 1 1 Specialty Diagnoses / Procedures Referred By Contac t Referred To Contact Diagnoses H/O bilateral mastectomy History of right breast cancer Procedures US BREAST LIMITED UNILATERAL RIGHT Pati Boles, SALESPERSON [employer]SETS-MANAGER [place] [address] [facility] [address] [place] [address] Referral ID Status Reason Start Date Expiration Date V isits Requested Visits Authorized [id number] New Request 02/06/2023 03/02/2024 1 1 Specialty Diagnoses / Procedures Referred By Contac t Referred To Contact Diagnoses H/O bilateral mastectomy History of right breast cancer Procedures CT CHEST WITHOUT CONTRAST CHG DIAGNOSTIC COMPUTED TOMOGRAPHY THORAX W/O CNTRST MannJuarez baerah Melinda, SALESPERSON CORSETS-MANAGER [place] [address] [place] [address] Referral ID Status Reason Start Date Expiration Date V isits Requested Visits Authorized [id number] New Request 02/06/2023 03/02/2024 1 1 Referral ID Status Reason Start Date Expiration Date Visits Re quested Visits Authorized [id number] Closed 02/06/2023 03/02/2024 1 1 Specialty Diagnoses / Procedures Referred By Corinne vines Referred To Contact Radiology Diagnoses Hyperlipidemia, unspecified Family history of ischemic heart disease and other diseases of the circulatory system Procedures CT cardiac scoring wo IV contrast [address] [place] [address] Referral ID Status Reason Start Date Expiration Date Visits Requested Visits Authorized [id number] Authorized Perform Procedure 10/28/2023 10/27/2024 1 1 Additional Source Comments INFORMATION SOURCE (unrecogn ized section and content) DATE CREATED AUTHOR 01/10/2021 [facility] DATE CREATED AUTHOR AUTHOR'S ORGANIZ ATION 12/31/2023 [facility] DATE CREATED AUTHOR AUTHOR'S ORGANIZ ATION 03/20/2025 [facility] DATE CREATED AUTHOR AUTHOR'S ORGANIZ ATION 03/20/2025 [facility] DATE CREATED AUTHOR AUTHOR'S ORGANIZ ATION 03/21/2025 [facility] DATE CREATED AUTHOR AUTHOR'S ORGANIZ ATION 04/19/2025 [facility] DATE CREATED AUTHOR AUTHOR'S ORGANIZ ATION 04/23/2025 [facility] Goals (unrecognized section and content) Goals may [...] By Corinne vines Referred To Contact Diagnoses H/O bilateral mastectomy History of right breast cancer Procedures US BREAST LIMITED UNILATERAL RIGHT Pati Boles, SALESPERSON [employer]SET[employer]-MANAGER [place] [address] [place] [address] Referral ID Status Reason Start Date Expiration Date V isits Requested Visits Authorized [id number] New Request 02/06/2023 03/02/2024 1 1 Specialty Diagnoses / Procedures Referred By Corinne vines Referred To Contact Diagnoses H/O bilateral mastectomy History of right breast cancer Procedures CT CHEST WITHOUT CONTRAST CHG DIAGNOSTIC COMPUTED TOMOGRAPHY THORAX W/O CNTRST Pati Boles, SALESPERSON [employer]SET[employer]MANAGER [place] [address] [address] Referral ID Status Reason Start Date Expiration Date V isits Requested Visits Authorized [id number] New Request 02/06/2023 03/02/2024 1 1 Reason Comments Breast Problem Specialty Diagnoses / Procedures Referred By Corinne vines Referred To Contact Diagnoses Unilateral primary osteoarthritis, right knee Unilateral primary osteoarthritis, right knee [M17.11] Procedures [place] ARTHRP KNE CONDYLE&PLATU MEDIAL&LAT COMPARTMENTS RIGHT TOTAL KNEE ARTHROPLASTY Altaf Metz MD 1 [facility] [address] [place] [address] [facility] Main Or [address] [place] [address] Referral ID Status Reason Start Date Expiration Date Visits Re quested Visits Authorized [id number] 1 Reason Onset Date Comments Post-op [...] Procedures CT cardiac scoring wo IV contrast [facility] [address] [place] [address] Referral ID Status Reason Start Date Expiration Date Visits Requested Visits Authorized [id number] Authorized Perform Procedure 10/28/2023 10/27/2024 1 1 [...] bilateral mastectomy Procedures CONSULT TO ONCOLOGY OFFICE/OUTPATIENT [facility] 60 MINUTES Garo Steele MD [address] [place] [address] Phone: tel: fax: Referral ID Status Reason Start Date Expiration Date V isits Requested Visits Authorized [id number] Closed PCP Requested Referral 04/23/2025 10/21/2025 1 [...] 2 g, Intravenous, Administer over 30 Minutes, MECHANISM ASSEMBLER TO PROCEDURE, 1 dose, Starting on Thu02/11/22 at 0511, Until Discontinued, Other, surgical prophylaxis, Initiate antibiotic administration 30-60 minutes prior to surgical incision and complete administration prior to surgical incision., Pre-op/Pre-Proc 0715 (Given - Provid er: Fazal Chavis MD) diphenhydrAMINE (BENADRYL) injection 12.5 mg 12.5 mg, Intravenous, EVERY 30 MINUTES NEEDED, 2 doses, Starting on Thu02/11/22 at 0948, Until Thu02/11/22 at 1615, Itching, FIRST Line, Use second dose only if first dose did not result in confusion . Do not give if age is > 65yo, Recovery haloperidol lactate (HALDOL) injection 1 mg 1 mg, Intravenous, ONCE NEEDED, 1 dose, Starting on Thu02/11/22 at 0948, Until Thu02/11/22 at 1615, Refractory Nausea/vomiting, Use if patient [...] Campbell RN)1335 (Given - Provider: Danielle Victoria, MAVIS) oxyCODONE-acetaminophen (PERCOCET) 5-325 MG per tablet 2 [...] Belkys Hayden RN)2141 (Given - Provider: Yesenia Pierce RN) 0352 (Given - Provider: Yesenia Pierce, MAVIS)1010 [...] Hayden RN)2357 (New Bag - Provider: Yesenia Pierce, MAVIS) 0027 (Stopped - Provider: Yesenia Pierce RN) [...] Belkys Hayden RN)2356 (Given - Provider: Yesenia Pierce RN) enoxaparin (Lovenox) syringe 40 mg 40 mg, SubCUTAneous, Daily, First dose on Thu03/25/23 at 0600, Phase II/On Unit, Begin morning of POD 1, Indication of Use: Prophylaxis-DVT/PE, Indications: Prophylaxis of Venous Thromboembolism 08 (Given - Provid er: Mitzy Wilder RN) famotidine (Pepcid) tablet 20 mg (COMPLETED)(Linked Group 1) 20 mg, Oral, Once, On Thu03/24/23 at 0615, For 1 dose, Preprocedure, IV or ORAL 0637 (Given - Provider: Anel Amaya RN) famotidine (Pepcid) tablet 20 mg 20 mg, Oral, 2 times daily, First dose on Thu03/24/23 at 2100, Phase II/On Unit 214 (Given - Provider: Yesenia Pierce RN) 08 (Given - Provider: Mitzy Wilder, MAVIS) gabapentin (Neurontin) capsule 300 mg 300 mg, Oral, 3 times daily, First dose on Thu03/24/23 at 2100 2141 (Given - Provider: Yesenia Pierce RN) 08 (Given - Provider: Mitzy Wilder, MAVIS) ketorolac (Toradol) injection 15 mg (COMPLETED) 15 mg, IntraVENous, Every 6 hours, First dose on Thu03/24/23 at 1445, For 2 doses, Phase II/On Unit, Give in addition to any other pain medication ordered at same time for any pain indication. 1617 (Given - Provider: Belkys Hayden RN)214 (Given - Provider: Yesenia Pierce, MAVIS) Nozin Nasal Flexo Folder Gluer Operator Popswab 2 Swab (COMPLETED) 2 Swab (1 [...] after use. 0615 (Given - Provider: Anel Amaya RN) ropivacaine (Naropin) 5 MG/ML 15 mL, [...] Pierce RN) 0830 (Given - Provider: Mitzy Wilder RN) traMADol (Ultram) tablet 50 mg 50 mg, Oral, Every 6 hours, First dose on Thu03/24/23 at 1445, Phase II/On Unit, Patient may refuse medication if they feel they do not need it. 1616 (Given - Provider: Belkys Hayden RN)5361 (Given - Provider: Yesenia Pierce RN) 0352 (Given - Provider: Yesenia Pierce RN)1009 (Given - Provider: Mitzy Wilder RN) Continuous Medication Order 03/23/2023 03/24/2023 03/25/2023 lactated Ringer's infusion 50 mL/hr, IntraVENous, Continuous, Starting on Thu03/24/23 at 0615, Preprocedure, Upon admission to sameday - please start iv if patient does not have iv access. Use 500ml NS for patients on dialysis. 0656 (New Bag - Provider: Anel Amaya, MAVIS)0905 (Continued by Anesthesia - Provider: EVI Carlos [...] PRN, sleep, Starting on Thu03/24/23 at 2251 2356 (Given - Provider: Nissa Pierce RN) ondansetron [...] Care Teams (unrecognized sec tion and content) Sexual Health Physician Relationship Specialty Start Date End Date Karolina Leong MD [address] [place] [address] PCP - General Pulmonary Disease 02/11/22 Sexual Health Physician Relationship Specialty Start Date End Date Karolina Leong MD [address] [place] [address] PCP - General Pulmonary Disease 02/11/22 Sexual Health Physician Relationship Specialty Start Date End Date Karolina Leong MD [address] [place] [address] PCP - General Pulmonary Disease 02/11/22 Sexual Health Physician Relationship Specialty Start Date End Date Karolina Leong MD [address] [place] [address] PCP - General Pulmonary Disease 02/11/22 Sexual Health Physician Relationship Specialty Start Date End Date Karolina Leong MD [address] [place] [address] PCP - General Pulmonary Disease 02/11/22 Sexual Health Physician Relationship Specialty Start Date End Date Garo Steele MD [address] [facility] [place] [place] [address] PCP - General Internal Medicine 05/26/22 Sexual Health Physician Relationship Specialty Start Date End Date Garo Steele MD [address] [facility] [place] [address] PCP - General Internal Medicine 06/27/22 Team Status: Active Member Role Status Dates Dr. Geovanni Foreman MD Family Provider Active Dr. Karolina Leong MD Primary Care Provider Active Team Status: Inactive Member Role Status Dates Dr. Karolina Leong MD Primary Care Provider Active Dr. Henri Amaya DO Attending Provider, Referrin g Provider Active Sexual Health Physician Relationship Specialty Start Date End Date Garo Steele [address] [place] [address] PCP - General Internal Medicine 11/04/22 Team [...] Haily Arredondo MD Attending Provider, Referring P romaddie Active Dr. Clay Jean MD Other Provider Active Team Status: Active Member Role Status Dates Dr. Garo Steele MD Primary Care Provider Active Self Referred Attending Provider, Referring Provider A ctive Sexual Health Physician Relationship Specialty Start Date End Date Garo Steele [address] [facility] [place], [place] [address] PCP - General Internal Medicine 11/04/22 Team Status: Inactive Member Role Status Dates Dr. Garo Steele MD Primary Care Provider, Refer ring Provider Active Dr. Haily Arredondo MD Attending Provider Active Team Status: Inactive Member Role Status Dates Dr. Garo Steele MD Primary Care Provider Active Dr. Franki Irvin MD Attending Provider, Referring Pro vider Active Sexual Health Physician Relationship Specialty Start Date End Date Garo Steele MD [address] [facility], [place] [id number] PCP - General Internal Medicine 06/27/22 Sexual Health Physician Relationship Specialty Start Date End Date Garo Steele [address] [place], [place] [address] PCP - General Internal Medicine 11/04/22 Sexual Health Physician Relationship Specialty Start Date End Date Garo Steele [address] [facility], [place] [id number] PCP - General Internal Medicine 11/04/22 Sexual Health Physician Relationship Specialty Start Date End Date Karolina Leong MD [address] [place] [address] PCP - General Pulmonary Disease 02/11/22 Sexual Health Physician Relationship Specialty Start Date End Date Karolina Leong MD [address] [facility] [place] [address] PCP - General Pulmonary Disease 02/11/22 Sexual Health Physician Relationship Specialty Start Date End Date Karolina Leong MD [address] [facility] [place] [address] PCP - General Pulmonary Disease 02/11/22 Team Status: Inactive Member Role Status Dates Dr. Garo Steele MD Primary Care Provider Active Yony Navarro CUT FILE CLERK, CUT FILE CLERK-C Attending Provider Active Sexual Health Physician Relationship Specialty Start Date End Date Garo Steele [address] [place], [place] [address] PCP - General Internal Medicine 11/04/22 Sexual Health Physician Relationship Specialty Start Date End Date Garo Steele [address] [place], [place] [address] PCP - General Internal Medicine 11/04/22 Sherry Garcia RN Nurse Navigator Orthopedic Surgery 03/05/2304/07 Altaf Metz MD [address] [facility] [address] [place] [address] Orthopedic Surgery 03/25/23 03/24/24 Sexual Health Physician Relationship Specialty Start Date End Date Garo Steele [address] [place], [place] [address] PCP - General Internal Medicine 11/04/22 Sherry Garcia RN Nurse Navigator Orthopedic Surgery 03/05/2304/07 Altaf Metz MD 1 [facility] [address] [place], [place] [address] Orthopedic Surgery 03/25/23 03/24/24 Sexual Health Physician Relationship Specialty Start Date End Date Garo Steele [address] [place], [place] [address] PCP - General Internal Medicine 11/04/22 Sherry Garcia RN Nurse Navigator Orthopedic Surgery 03/05/2304/07 Altaf Metz MD 1 [facility] [address] [place] [address] Orthopedic Surgery 03/25/23 03/24/24 Sexual Health Physician Relationship Specialty Start Date End Date Garo Steele [address] [place], [place] [address] PCP - General Internal Medicine 11/04/22 Sherry Garcia RN Nurse Navigator Orthopedic Surgery 03/05/2304/07 Altaf Metz MD 1 [facility] [address] [place] [address] Orthopedic Surgery 03/25/23 03/24/24 Sexual Health Physician Relationship Specialty Start Date End Date Garo Steele [address] [place], [place] [address] PCP - General Internal Medicine 11/04/22 Sherry Garcia RN Nurse Navigator Orthopedic Surgery 03/05/2304/07 Altaf Metz MD 1 [facility] [address] [place], [place] [address] Orthopedic Surgery 03/25/23 03/24/24 Sexual Health Physician Relationship Specialty Start Date End Date Garo Steele [address] [place], [place] [address] PCP - General Internal Medicine 11/04/22 Sherry Garcia, MAVIS Nurse Navigator Orthopedic Surgery 03/05/2304/07 Altaf Metz MD 1 [facility] [address] [place] [address] Orthopedic Surgery 03/25/23 03/24/24 Sexual Health Physician Relationship Specialty Start Date End Date Garo Steele [address] [place], [place] [address] PCP - General Internal Medicine 11/04/22 Sherry Garcia, MAVIS Nurse Navigator Orthopedic Surgery 03/05/2304/07 Altaf Metz MD 1 [facility] [address] [place] [address] Orthopedic Surgery 03/25/23 03/24/24 Team Status: Inactive Member Role Status Dates Dr. Garo Steele MD Primary Care Provider Active ISAÍAS SOLITARIO Attending Provider Active Sexual Health Physician Relationship Specialty Start Date End Date Garo Steele [address] [place], [place] [address] PCP - General Internal Medicine 11/04/22 Altaf Metz MD 1 [facility] [address] [place], [place] [address] Orthopedic Surgery 03/25/23 03/24/24 Sexual Health Physician Relationship Specialty Start Date End Date Garo Steele [address] [place], [place] [phone] PCP - General Internal Medicine 11/04/22 Altaf Metz MD 1 [facility] [address] [place], [place] [address] Orthopedic Surgery 03/25/23 03/24/24 Sexual Health Physician Relationship Specialty Start Date End Date Garo Steele [address] [place] [address] PCP - General Internal Medicine 11/04/22 Altaf Metz MD 1 [facility] [address] [place] [address] Orthopedic Surgery 03/25/23 03/24/24 Sexual Health Physician Relationship Specialty Start Date End Date Garo Steele [address] [place] [address] PCP - General Internal Medicine 11/04/22 Sherry Garcia RN Nurse Navigator Orthopedic Surgery 03/05/2304/07 Altaf Metz MD 1 [facility] [address] [place] [address] Orthopedic Surgery 03/25/23 03/24/24 Sexual Health Physician Relationship Specialty Start Date End Date Garo Steele [address] [place] [address] PCP - General Internal Medicine 11/04/22 Altaf Metz MD 1 [facility] [address] [place] [address] Orthopedic Surgery 03/25/23 03/24/24 Sexual Health Physician Relationship Specialty Start Date End Date Clay Jean MD [address] [place] [address] [address] PCP - General Cardiology 11/05/23 Sexual Health Physician Relationship Specialty Start Date End Date Karolina Leong MD PCP - General Pulmonary Disease 02/11/22 Sexual Health Physician Relationship Specialty Start Date End Date Garo Steele [address] [place] [address] PCP - General Internal Medicine 11/04/22 Sexual Health Physician Relationship Specialty Start Date End Date Garo Steele MD [address] [place] [address] PCP - General Internal Medicine 06/27/22 Sexual Health Physician Relationship Specialty Start Date End Date Garo Steele MD [address] [place] [address] PCP - General Internal Medicine 06/27/22 Sexual Health Physician Relationship Specialty Start Date End Date Garo Steele MD [address] [place] [address] PCP - General Internal Medicine 06/27/22 Rosa Washburn, SALESPERSON CORSETS.MANAGER CHINA [address] [place] [address] Mixing Tank Operator Internal Medicine 05/23/24 Sexual Health Physician Relationship Specialty Start Date End Date Garo Steele [address] [place] [address] PCP - General Internal Medicine 11/04/22 Sexual Health Physician Relationship Specialty Start Date End Date Garo Steele MD [address] [place] [address] PCP - General Internal Medicine 06/27/22 Rosa Washburn, SALESPERSON CORSETS.MANAGER CHINA [address] [facility] [place] [address] Mixing Tank Operator Internal Medicine 05/23/24 Sexual Health Physician Relationship Specialty Start Date End Date Garo Steele MD [address] [facility] [place] [address] PCP - General Internal Medicine 06/27/22 Rosa Washburn, SALESPERSON CORSETS.MANAGER CHINA [address] [facility] [place] [place] [address] Mixing Tank Operator Internal Medicine 05/23/24 Sexual Health Physician Relationship Specialty Start Date End Date Garo Steele MD [address] [facility] [place] [address] PCP - General Internal Medicine 06/27/22 Rosa Washburn, SALESPERSON CORSETS.MANAGER CHINA [address] [facility] [place] [address] Mixing Tank Operator Internal Medicine 05/23/24 Sexual Health Physician Relationship Specialty Start Date End Date Garo Steele MD [address] [facility] [place] [address] PCP - General Internal Medicine 06/27/22 Rosa Washburn, SALESPERSON CORSETS.MANAGER [place]INA [address] [facility] [place] [address] Mixing Tank Operator Internal Medicine 05/23/24 Sexual Health Physician Relationship Specialty Start Date End Date Garo Steele MD [address] [facility] [place] [address] PCP - General Internal Medicine 06/27/22 Rosa Washburn, SALESPERSON CORSETS.MANAGER [place]INA [address] [place] [address] [facility] Internal Medicine 05/23/24 Team Status: Active Member [...] End: November 14, 2024 Dangelo Cevallos NP, CUT FILE CLERK-C Attending Provider Active Start: November 14, 2024 [...] End: November 14, 2024 Dangelo Cevallos NP, CUT FILE CLERK-C Attending Provider Active Start: November 14, 2024 [...] Care Provider Active Start: December 29, 2024 Le Harris CUT FILE CLERK-C Attending Provider Active S tart: December 29, 2024 Le Harris NP-C Referring Provider Active S tart: December 29, 2024 Team Status: Inactive Member Role/Relationship Status Dates Dr. Garo Steele MD Primary Care Provider Active Start: January 03, 2025 End: January 03, 2025 Dr. Garo Steele MD Referring Provider Active Start: January 03, 2025 End: January 03, 2025 Le Harris NP-C Attending Provider Active S tart: January 03, 2025 End: January 03, 2025 Team Status: Inactive Member Role/Relationship Status Dates Dr. Gaor Steele MD Primary Care Provider Active Start: December 29, 2024 End: December 29, 2024 Le Harris NP-Ciro Attending Provider Active S tart: December 29, 2024 End: December 29, 2024 Le Harris NP-Ciro Referring Provider Active S tart: December 29, 2024 End: December 29, 2024 Sexual Health Physician Relationship Specialty Start Date End Date Garo Steele MD [address] [place] [address] PCP - General Internal Medicine 06/27/22 Rosa Washburn, SALESPERSON CORSETS.MANAGER [place] [address] [place] [address] Mixing Tank Operator Internal Medicine 05/23/24 Team Status: Inactive Member Role/Relationship Status Dates Dr. Garo Steele MD Primary Care Provider Active Start: January 23, 2025 End: January 23, 2025 Dr. Garo Steele MD Referring Provider Active Start: January 23, 2025 End: January 23, 2025 SHAMAR Ba Attending Provider Active S tart: January 23, 2025 End: January 23, 2025 Sexual Health Physician Relationship Specialty Start Date End Date Garo Steele MD [address] [place] [address] PCP - General Internal Medicine 06/27/22 Rosa Washburn, SALESPERSON CORSETS.MANAGER [place] [address] [place] [address] Mixing Tank Operator Internal Medicine 05/23/24 Team Status: Active Member [...] January 31, 2025 End: January 31, 2025 Sexual Health Physician Relationship Specialty Start Date End Date Garo Steele [address] [place], [place] [address] PCP - General Internal Medicine 11/04/22 Team [...] physician Active Start : March 14, 2025 Sexual Health Physician Relationship Specialty Start Date End Date Garo Steele [address] [place] [address] PCP - General Internal Medicine 11/04/22 Team Status: Inactive Member Role/Relationship Status Dates Dr. Garo Steeel MD Primary care physician Activ e Start: [...] or prosecute any alcohol or drug abuse patient.[facility] the event this information is protected by the Federal Confidentiality of Alcohol and Drug Abuse Patient Records regulations: The Federal rules restrict any use of the information to criminally investigate or prosecute any alcohol or drug abuse patient.[facility] the event this information is protected by the Federal Confidentiality of Alcohol and Drug Abuse Patient Records regulations: The Federal rules restrict any use of the information to criminally investigate or prosecute any alcohol or drug abuse patient.[facility] the event this information is protected by the Federal Confidentiality of Alcohol and Drug Abuse Patient Records regulations: The Federal rules restrict any use of the information to criminally investigate or prosecute any alcohol or drug abuse patient.[facility] the event this information is protected by the Federal Confidentiality of Alcohol and Drug Abuse Patient Records regulations: The Federal rules restrict any use of the information to criminally investigate or prosecute any alcohol or drug abuse patient.[facility] Springfield[facility] the event this information is protected by the Federal Confidentiality of Alcohol and Drug Abuse Patient Records regulations: The Federal rules restrict any use of the information to criminally investigate or prosecute any alcohol or drug abuse patient.[facility] Springfield[facility] the event this information is protected by the Federal Confidentiality of Alcohol and Drug Abuse Patient Records regulations: The Federal rules restrict any use of the information to criminally investigate or prosecute any alcohol or drug abuse patient.[facility] Springfield[facility] the event this information is protected by the Federal Confidentiality of Alcohol and Drug Abuse Patient Records regulations: The Federal rules restrict any use of the information to criminally investigate or prosecute any alcohol or drug abuse patient.[facility] Springfield[facility] the event this information is protected by the Federal Confidentiality of Alcohol and Drug Abuse Patient Records regulations: The Federal rules restrict any use of the information to criminally investigate or prosecute any alcohol or drug abuse patient.[facility] Springfield[facility] the event this information is protected by the Federal Confidentiality of Alcohol and Drug Abuse Patient Records regulations: The Federal rules restrict any use of the information to criminally investigate or prosecute any alcohol or drug abuse patient.[facility] the event this information is protected by the Federal Confidentiality of Alcohol and Drug Abuse Patient Records regulations: The Federal rules restrict any use of the information to criminally investigate or prosecute any alcohol or drug abuse patient.[facility]In the event this information is protected by the Federal Confidentiality of Alcohol and Drug Abuse Patient Records regulations: The Federal rules restrict any use of the information to criminally investigate or prosecute any alcohol or drug abuse patient.[facility] the event this information is protected by the Federal Confidentiality of Alcohol and Drug Abuse Patient Records regulations: The Federal rules restrict any use of the information to criminally investigate or prosecute any alcohol or drug abuse patient.[facility]In the event this information is protected by the Federal Confidentiality of Alcohol and Drug Abuse Patient Records regulations: The Federal rules restrict any use of the information to criminally investigate or prosecute any alcohol or drug abuse patient.[facility] the event this information is protected by the Federal Confidentiality of Alcohol and Drug Abuse Patient Records regulations: The Federal rules restrict any use of the information to criminally investigate or prosecute any alcohol or drug abuse patient.[facility] the event this information is protected by the Federal Confidentiality of Alcohol and Drug Abuse Patient Records regulations: The Federal rules restrict any use of the information to criminally investigate or prosecute any alcohol or drug abuse patient.[facility] FOR RECORDS PERTAINING TO PATIENTS WHO ARE [...] BE BASED ON THE PRIMARY CLINICAL RECORDS. [facility]. provides no warranty or guarantee of the accuracy or completeness of information in this document.
== END | disposition home or self-care (01) ==
LOC: RAD 15:59
PROVIDERS: PCP Internal Medicine; Referring Provider Physician Assistant; Visit Provider Physician Assistant
DX: M67.442 Ganglion, left hand (principal); L03.012 Cellulitis of left finger
CPT/HCPCS: 73140

== ENCOUNTER → 2025-05-02 | Outpatient (CLI) | payer MEDICARE, SELFPAY | END | disposition home or self-care (01) | PROVIDERS: PCP Internal Medicine; Referring Provider Internal Medicine; Visit Provider Internal Medicine | DX: M85.89 Other specified disorders of bone density and structure, multiple sites (principal) ==

== ENCOUNTER → 2025-05-09 | Outpatient (CLI) | payer MEDICARE, SELFPAY ==
--- NOTE | 2025-05-09 11:27 | BD_ITS ---
PROCEDURE: DEXA BONE DENSITY STUDY 05/09/2025 REASON FOR EXAM: F, age 75 y/o . Postmenopausal. TECHNIQUE: Procedure Code: BDDBD Modality: DX Procedure: DEXA BONE DENSITY STUDY COMPARISON: None FINDINGS: BMD and T-SCORES Lumbar spine: 0.904 g/cm2, T-score -1.4 Levels: L1 through L4 Left femoral neck: 0.500 g/cm2, T-score -3.1 Left total hip: 0.492 g/cm2, T-score -3.7 Right femoral neck: 0.639 g/cm2, T-score -1.9 Right total hip: 0.694 g/cm2, T-score -2.0 The World Health Organization has defined the following categories based on bone density: Normal bone density: T-score equal to or greater than -1.0 Osteopenia: T-score between -1.0 and -2.5 Osteoporosis: T-score equal to or less than -2.5 FRAX (or Comparable) Fracture Risk Assessment: 10 Year Probability of Fracture: Major Osteoporotic Fracture: 33% Hip Fracture: 13% (Note: FRAX is not to be reported in setting of normal range bone density, osteoporosis on DEXA, known history of osteoporosis, prior osteoporotic hip or vertebral fracture, or for any patient undergoing pharmacological treatment for bone loss.) The National Osteoporosis Foundation (NOF) recommends pharmacological treatment for patients with a FRAX 10-year risk of 3% or higher for a hip fracture, or 20% or higher for a major osteoporotic fracture, to prevent osteoporosis and reduce fracture risk. The patient does meet the pharmacological treatment recommendations for prevention of osteoporosis. BD/Dexa Bone Density Study IMPRESSION: OSTEOPOROSIS. Recommend follow-up as clinically warranted. Reading Location: [id number]
== END | disposition home or self-care (01) ==
LOC: OPBD 11:18
PROVIDERS: PCP Internal Medicine; Referring Provider Internal Medicine; Visit Provider Internal Medicine
DX: M85.89 Other specified disorders of bone density and structure, multiple sites (principal)
CPT/HCPCS: 77080